=== PATIENT | female | born 1970 | race Caucasian/White ===

== ENCOUNTER 2018-03-07 12:22 | Emergency (ER) | payer OTHER, MEDICAID, SELFPAY ==
[2018-03-07 12:30] VITALS: BP 111/77; PULSE 64; RESP 15; TEMP 36.7; O2SAT 98; BMI 37.6
[2018-03-07 15:49] VITALS: BP 108/67; PULSE 58; RESP 18; O2SAT 99
--- NOTE | 2018-03-07 16:11 | ED_ITS ---
HPI - Dental/Oral General Chief complaint: Dental/Oral Stated complaint: ABSCESS IN MOUTH Time Seen by Provider: 03/07/18 15:53 Source: patient and family Mode of arrival: ambulatory Limitations: no limitations History of Present Illness HPI Narrative: This is a 47-year-old female who comes to the emergency department with complaint of swelling above her right incisor tooth. Patient states that it has been there for almost a week. Patient she states that some she was seen in [place] as they were on a road trip from [place] to [place]. She lives here locally. She states she had swelling at that site as well of her face extending up towards her eye. They put her on clindamycin and gave her prescription for pain medication. They state that they tried to drain the area but there is nothing that came out at that time. She has been taking the antibiotics and has about 4 days worth left. Patient states that the area of swelling has gotten much bigger and more painful. Has not had anything draining. The swelling of her face is improved. She has not had any fevers, she is not having difficulty breathing or other oral airway swelling. No chest pain or shortness of breath no nausea or vomiting no GI or urinary symptoms. She states she also has a rash in her right axillary area that sort of red and itchy. She also clean planes of the some slight swelling in her feet while they were traveling. Location: Tooth # (above tooth #6.) 2 1. swelling consistent with abscess on exam. I&D with drainage Related Data Previous Rx's Medication Instructions Recorded clotrimazole 1 applictn TOP BID 14 Days gram 03/07/18 oxycodone 5 mg PO Q4-6H PRN #7 cap 03/07/18 Allergies Allergy/AdvReac Type Severity Reaction Status Date / Time Penicillins [PENICILLINS] Allergy Unknown Verified 03/07/18 12:30 Sulfa (Sulfonamide Allergy Unknown Verified 03/07/18 12:30 Antibiotics) [SULFA (SULFONAMIDE ANTIBIOTICS)] Review of Systems Review of Systems All systems reviewed & are unremarkable except as noted in HPI and below Constitutional Denies fever(s) ENT Ears, Nose, Mouth, and Throat: Reports facial pain, Reports lip swelling and Reports other (abscess above tooth) Cardiovascular Denies chest pain, Denies irregular heart rhythm, Denies lightheadedness, Denies palpitations, Denies dyspnea, Denies dyspnea on exertion and Denies orthopnea Respiratory Denies cough, Denies dyspnea, Denies dyspnea on exertion and Denies wheezing Gastrointestinal Gastrointestinal: Denies abdominal pain, Denies change in bowel habits, Denies diarrhea, Denies nausea and Denies vomiting Musculoskeletal Reports other (swelling in feet.) Endocrine Denies palpitations Allergic/Immunologic Reports lip swelling and Denies wheezing [facility] Medical History COPD (chronic obstructive pulmonary disease) (Acute) Cirrhosis (Acute) Esophageal varices (Acute) Social History alcohol intake: former substance use type: does not use Exam Narrative Exam Narrative: GEN: well nourished, well appearing female, alert and oriented x 3, patient appears to be in mild distress. HEENT: Atraumatic, pupils are equal round reactive to light, extraocular movements are intact, nares are clear, TMs are clear with no fluid. Throat is clear without any exudates, erythema, tonsillar enlargement or uvular deviation , patient has significant swelling with a fluctuant area above the right incisor. It is quite tender and erythematous. Patient has very slight swelling above the lip but no other facial swelling is appreciated fevers or any erythema or other palpable areas of fluid collection. HEART: Regular rate and rhythm without murmur, clicks, rubs. Trace edema bilateral ankles. LUNGS:Lungs clear to auscultation, no wheezes, rales, crackles, chest moves symmetrically ABD:bowel sounds normal, soft, non-tender, no guarding, rebound, rigidity, no masses noted, no hepatosplenomegaly MSCL: Non-tender,full range of motion NEURO:CN 2-12 intact, sensation normal SKIN: Patient has some erythematous changes in her right axilla with some scalloping that looks consistent with a fungal infection. Initial Vital Signs Initial Vital Signs: Vital Signs Temperature 98.1 F 03/07/18 12:30 Pulse Rate 64 03/07/18 12:30 Respiratory Rate 15 03/07/18 12:30 Blood Pressure 111/77 03/07/18 12:30 Pulse Oximetry 98 03/07/18 12:30 Procedures Abscess I/D Site: oral (Dental) Local Anesthetic: lidocaine 1% Amount of anesthesia used (mL): 0.5 Technique: needle aspiration and incised with #11 blade Amount of fluid expressed (mL): 1.5 Irrigation: No Packing used?: none Complications: bleeding (mild) Course Orders Ordered: ED Orders 03/07/18 16:20 Abscess Culture Stat Vital Signs - 8 hr 03/07/18 12:30 03/07/18 15:49 03/07/18 17:23 Temperature 98.1 F Pulse Rate 64 58 L 63 Respiratory Rate 15 18 15 Blood Pressure 111/77 Blood Pressure [Left Arm] 108/67 129/79 Pulse Oximetry 98 99 97 MDM - Dental/Oral MDM Narrative Medical decision making narrative: I was able to aspirate about 1 cc of purulent fluid directly from the area. Patient tolerated procedure well. Um 11 blade was used to make an incision that was about a 0.5 cm in size and the areas massaged with some additional purulent fluid. Patient has clindamycin with she has about 4 more days worth of antibiotics and was encouraged to finish this. She states she is out of the oxycodone she was given by the last hospital and was given a short-term script for pain. She was also complaining of a rash under her axilla on the left which appears to be fungal in nature was given clotrimazole script. We did use a small amount of benzocaine topical on the area before incision and drainage and she was given a small to move this to use locally. She was instructed only a small tab 3-4 times daily. Any large amount of benzocaine use regularly can result in toxicity and she and her are both aware this. Discussed that she is having any worsening symptoms or signs of worsening infection to return to the ED. Discharge Plan Departure Patient Disposition: Home Clinical Impression: Abscess, dental Discharge Date/Time: 03/07/18 17:27 Interventions: ED Discharge Assessment Last Done: 03/07/18 17:27 Instructions: Tooth Abscess Activity Restrictions/Additional Instructions: Continue prescribed antibiotics until they are completely gone. Take pain medications as prescribed, this medication can make you sleepy do not drive, perform hazards activities or make any major decisions while taking them. Return to the emergency department for any fevers, increasing swelling, increasing redness or other signs of swelling of the airway, signs of spreading infection or other concerning symptoms. Use topical ointment to the affected area in your axilla twice daily. Follow-up with your primary care physician in the next 2-3 days for recheck. Prescriptions: New oxycodone 5 mg capsule 5 mg PO Q4-6H PRN (Reason: pain) Qty: 7 RF: 0 clotrimazole 1 % cream 1 applictn TOP BID 14 Days RF: 0
[2018-03-07 17:23] VITALS: BP 129/79; PULSE 63; RESP 15; O2SAT 97
== END 2018-03-07 17:27 | disposition home or self-care (01) ==
PROVIDERS: Emergency Provider Emergency Medicine; PCP Family Medicine
DX: K04.7 Periapical abscess without sinus (principal)
CPT/HCPCS: 10060; 87070; 87075; 87077; 87205; 99282; 99283

== ENCOUNTER 2018-04-13 11:11 | Emergency (ER) | payer OTHER, MEDICAID, SELFPAY ==
[2018-04-13 11:16] VITALS: BP 147/79; PULSE 66; RESP 18; O2SAT 98
--- NOTE | 2018-04-13 12:11 | ED.ALCOHOL ---
HPI - Alcohol <Stiven PalaciosDAISY armando - Last Filed: 04/13/18 22:18> General Chief Complaint: Toxicology Problem Stated Complaint: ALCOHOL DETOX Time Seen by Provider: 04/13/18 12:11 Source: patient Mode of arrival: ambulatory Limitations: no limitations History of Present Illness HPI narrative: 47-year-old female with history of alcohol abuse, esophageal varices and seizures related to alcohol detox here for request of alcohol detox. She reports that she normally drinks roughly about a 5th of alcohol a day. She reports that her last alcohol intake was approximately 2 hr ago. She states she does not know the amount of alcohol that she drink. She is trying to get to detox and they tried to get her into the [facility] respite center and states due to her medical problems that they would not be able to take her. They recommended that the patient go to [facility]. She denies any seizure activity. She also has a history of hypothyroidism secondary to thyroidectomy she states she has not been taking her meds for approximately 1 week. She denies any suicidal or homicidal ideation. She also reports that she has a mild headache as she had a ground level fall yesterday hitting the front of her head. No loss of consciousness. No nausea or vomiting. MD complaint: desires rehab Chronic alcohol use: Yes Previous visits for alcohol intoxication: Yes Related Data Home Medications Medication Instructions Recorded Confirmed asenapine [Saphris] 10 mg SUBLINGUAL BEDTIME 04/13/18 04/13/18 clotrimazole 1 applic TOPICAL DIRECTED 04/13/18 04/13/18 furosemide 40 mg PO DAILY 04/13/18 04/13/18 hydroxyzine pamoate 50 mg PO TID PRN 04/13/18 04/13/18 levothyroxine 150 mcg PO DAILY 04/13/18 04/13/18 multivitamin,[id number] 1 tab PO DAILY 04/13/18 04/13/18 [Complete Multivitamin] nadolol 40 mg PO DAILY 04/13/18 04/13/18 omeprazole 20 mg PO BID 04/13/18 04/13/18 sertraline 50 mg PO DAILY 04/13/18 04/13/18 spironolactone 50 mg PO DAILY 04/13/18 04/13/18 Previous Rx's Medication Instructions Recorded oxycodone 5 mg PO Q4-6H PRN #7 cap 03/07/18 asenapine [Saphris] 5 mg SL .hs #28 tab 04/13/18 furosemide 40 mg PO DAILY #14 tab 04/13/18 levothyroxine 150 mcg PO DAILY #14 tab 04/13/18 nadolol 40 mg PO DAILY #14 tab 04/13/18 omeprazole 20 mg PO BID #28 cap 04/13/18 sertraline 50 mg PO DAILY #14 tab 04/13/18 spironolactone 50 mg PO DAILY #14 tab 04/13/18 Allergies Allergy/AdvReac Type Severity Reaction Status Date / Time Penicillins [PENICILLINS] Allergy Unknown Verified 03/07/18 12:30 Sulfa (Sulfonamide Allergy Unknown Verified 03/07/18 12:30 Antibiotics) [SULFA (SULFONAMIDE ANTIBIOTICS)] sulfamethoxazole Allergy Verified 04/13/18 11:21 [From Bactrim] trimethoprim [From Bactrim] Allergy Verified 04/13/18 11:21 Review of Systems <DAISY Hansen - Last Filed: 04/13/18 22:18> Constitutional Denies chills, Denies fever(s), Denies lethargy and Denies weakness Comments: Desires alcohol detox Eyes Denies change in vision, Denies eye discharge, Denies irritation and Denies loss of vision ENT Ears, Nose, Mouth, and Throat: Denies change in voice, Denies neck pain and Denies sore throat Cardiovascular Denies chest pain, Denies irregular heart rhythm, Denies lightheadedness, Denies palpitations, Denies dyspnea, Denies dyspnea on exertion and Denies orthopnea Respiratory Denies cough, Denies dyspnea, Denies dyspnea on exertion and Denies wheezing Gastrointestinal Gastrointestinal: Denies abdominal pain, Denies change in bowel habits, Denies diarrhea, Denies nausea and Denies vomiting Musculoskeletal Denies neck pain Integumentary/Breasts Denies pruritus, Denies erythema, Denies rash and Denies wounds Neurologic Denies confusion, Denies loss of vision and Denies weakness Comments: Headache after ground level fall Psychiatric Denies anxiety, Denies confusion, Denies depression, Denies homicidal ideation and Denies suicidal ideation Endocrine Denies palpitations Hematologic/Lymphatic Denies easy bruising Allergic/Immunologic Denies wheezing Exam <DAISY Hansen - Last Filed: 04/13/18 22:18> Initial Vital Signs Initial Vital Signs: Vital Signs Pulse Rate 66 04/13/18 11:16 Respiratory Rate 18 04/13/18 11:16 Blood Pressure 147/79 H 04/13/18 11:16 Pulse Oximetry 98 04/13/18 11:16 Const General: cooperative and well developed Nutritional Appearance: well nourished Orientation: alert, awake, oriented x3 and not confused HENMT Head: normal to inspection, normocephalic, No Thompson's sign, No hematoma, No laceration, No raccoon eyes and No scalp lesion Mouth: oral mucosae normal and moist mucous membranes Eyes Conjunctivae: conjunctivae normal Sclera: sclerae normal Pupils: PERRL EOM: EOM intact bilaterally Resp Effort & Inspection: normal respiratory effort, able to speak in complete sentences, no respiratory distress and no use of accessory muscles Auscultation: clear to auscultation bilaterally, no rales, no rhonchi and no wheezes Cardio Rate: regular rate Rhythm: regular rhythm Heart Sounds: no click, no gallops, no murmurs and no rubs Pulses: normal peripheral pulses Skin General: no rashes or lesions noted, No jaundice and No petechiae Neuro General: alert, oriented x3, gait normal and no focal motor deficits Speech: speech normal Psych Appearance: grossly normal and well kempt Thought Content: normal, no homicidality and suicidality <Nellie Vazquez DO - Last Filed: 04/19/18 21:04> Initial Vital Signs Initial Vital Signs: Vital Signs Pulse Rate 66 04/13/18 11:16 Respiratory Rate 18 04/13/18 11:16 Blood Pressure 147/79 H 04/13/18 11:16 Pulse Oximetry 98 04/13/18 11:16 Course <DAISY Hansen - Last Filed: 04/13/18 22:18> Orders Ordered: Discontinued Medications Sodium Chloride (Normal Saline 0.9%) 1,000 mls @ 150 mls/hr IV CONT CORDELIA Last Infusion: 04/13/18 18:44 Dose: 0 mls/hr Admin: 04/13/18 13:35 Dose: 150 mls/hr Lorazepam (Ativan) 1 mg IV NOW ONE Stop: 04/13/18 12:40 Last Admin: 04/13/18 13:34 Dose: 1 mg Lorazepam (Ativan) 1 mg IV NOW ONE Stop: 04/13/18 16:11 Last Admin: 04/13/18 16:15 Dose: 1 mg Lorazepam (Ativan) 1 mg IV NOW ONE Stop: 04/13/18 18:25 Last Admin: 04/13/18 18:29 Dose: 1 mg Vital Signs - 8 hr 04/13/18 16:38 04/13/18 18:44 Temperature 98.0 F Pulse Rate 66 76 Respiratory Rate 18 15 Blood Pressure 111/66 Blood Pressure [Right Arm] 130/77 Pulse Oximetry 93 96 <Nellie Vazquez DO - Last Filed: 04/19/18 21:04> Orders Ordered: Discontinued Medications Sodium Chloride (Normal Saline 0.9%) 1,000 mls @ 150 mls/hr IV CONT CORDELIA Last Infusion: 04/13/18 18:44 Dose: 0 mls/hr Admin: 04/13/18 13:35 Dose: 150 mls/hr Lorazepam (Ativan) 1 mg IV NOW ONE Stop: 04/13/18 12:40 Last Admin: 04/13/18 13:34 Dose: 1 mg Lorazepam (Ativan) 1 mg IV NOW ONE Stop: 04/13/18 16:11 Last Admin: 04/13/18 16:15 Dose: 1 mg Lorazepam (Ativan) 1 mg IV NOW ONE Stop: 04/13/18 18:25 Last Admin: 04/13/18 18:29 Dose: 1 mg Vital Signs - 8 hr 04/13/18 16:38 04/13/18 18:44 Temperature 98.0 F Pulse Rate 66 76 Respiratory Rate 18 15 Blood Pressure 111/66 Blood Pressure [Right Arm] 130/77 Pulse Oximetry 93 96 MDM - Alcohol <DAISY Hansen - Last Filed: 04/13/18 22:18> Lab Data Result diagrams: 04/13/18 13:26 04/13/18 13:26 Labs: Lab Results 04/13/18 04/13/18 04/13/18 Range/Units 11:55 11:55 13:26 WBC 4.8 (4.5-11.0) X10^3/uL RBC 4.53 (4.0-5.2) X10^6/uL Hgb 11.8 L (12.0-16.0) g/dL Hct 36.1 (36-46) % MCV 79.7 L (80-100) fL MCH 26.1 (26-34) PG MCHC 32.8 (30-36) % RDW 16.9 H (11.6-14.8) % Plt Count 167 (150-400) X10^3/uL Neut % (Auto) 44.8 L (50-75) % Lymph % (Auto) 46.7 H (25-40) % Morris % (Auto) 5.5 (3-14) % Eos % (Auto) 2.1 (2-4) % Baso % (Auto) 0.9 (0-2) % Neut # (Auto) 2100 L (6790-4015) /uL Sodium (137-145) mmol/L Potassium (3.4-5.1) mmol/L Chloride (98-107) mmol/L Carbon Dioxide (22-32) mmol/L BUN (7-17) mg/dL Creatinine (0.52-1.04) mg/dL Estimated GFR (>60) mL/min BUN/Creatinine Ratio (6-22) Glucose (70-100) mg/dL Calcium (8.4-10.2) mg/dL Total Bilirubin (0.2-1.3) mg/dL AST (14-36) IU/L ALT (9-52) IU/L Alkaline Phosphatase (38-126) U/L Total Protein (6.3-8.2) g/dL Albumin (3.5-5.0) g/dL Globulin (1.7-4.1) g/dL Albumin/Globulin Ratio (1.0-2.8) TSH (0.47-4.68) uIU/mL Urine RBC 0-1/hpf (0-5/HPF) Urine WBC None seen (0-5/HPF) Ur Squamous Epith Cells 1-5 /hpf Urine Bacteria Moderate (10-30) H (None) Ur Culture Indicated? Cult not indicated Micro UA Comment Not Reportable Urine Opiates Screen Negative (Negative) Ur Oxycodone Screen Positive H (Negative) Urine Methadone Screen Negative (Negative) Ur Barbiturates Screen Negative (Negative) U Tricyclic Antidepress Negative (Negative) Ur Phencyclidine Scrn Negative (Negative) Ur Amphetamines Screen Negative (Negative) U Methamphetamines Scrn Negative (Negative) Ur MDMA Scrn (Ecstasy) Negative (Negative) U Benzodiazepines Scrn Positive H (Negative) Urine Cocaine Screen Negative (Negative) U Marijuana (THC) Screen Negative (Negative) Ethyl Alcohol mg/dL 04/13/18 04/13/18 Range/Units 13:26 13:26 WBC (4.5-11.0) X10^3/uL RBC (4.0-5.2) X10^6/uL Hgb (12.0-16.0) g/dL Hct (36-46) % MCV (80-100) fL MCH (26-34) PG MCHC (30-36) % RDW (11.6-14.8) % Plt Count (150-400) X10^3/uL Neut % (Auto) (50-75) % Lymph % (Auto) (25-40) % Morris % (Auto) (3-14) % Eos % (Auto) (2-4) % Baso % (Auto) (0-2) % Neut # (Auto) (4109-3705) /uL Sodium 142 (137-145) mmol/L Potassium 3.5 (3.4-5.1) mmol/L Chloride 102 (98-107) mmol/L Carbon Dioxide 24 (22-32) mmol/L BUN 7 (7-17) mg/dL Creatinine 0.50 L (0.52-1.04) mg/dL Estimated GFR > 60.0 (>60) mL/min BUN/Creatinine Ratio 14.0 (6-22) Glucose 123 H (70-100) mg/dL Calcium 8.4 (8.4-10.2) mg/dL Total Bilirubin 0.4 (0.2-1.3) mg/dL AST 49 H (14-36) IU/L ALT 46 (9-52) IU/L Alkaline Phosphatase 108 (38-126) U/L Total Protein 7.9 (6.3-8.2) g/dL Albumin 4.3 (3.5-5.0) g/dL Globulin 3.6 (1.7-4.1) g/dL Albumin/Globulin Ratio 1.2 (1.0-2.8) TSH 16.00 H (0.47-4.68) uIU/mL Urine RBC (0-5/HPF) Urine WBC (0-5/HPF) Ur Squamous Epith Cells Urine Bacteria (None) Ur Culture Indicated? Micro UA Comment Urine Opiates Screen (Negative) Ur Oxycodone Screen (Negative) Urine Methadone Screen (Negative) Ur Barbiturates Screen (Negative) U Tricyclic Antidepress (Negative) Ur Phencyclidine Scrn (Negative) Ur Amphetamines Screen (Negative) U Methamphetamines Scrn (Negative) Ur MDMA Scrn (Ecstasy) (Negative) U Benzodiazepines Scrn (Negative) Urine Cocaine Screen (Negative) U Marijuana (THC) Screen (Negative) Ethyl Alcohol 222 mg/dL Point of Care Testing Test Results Negative Urine Dip Bedside Urine Glucose Negative Bedside Urine Bilirubin - Negative Bedside Urine Ketone - Negative Urine Specific Collins 1.015 Bedside Urine Occult Blood + Bedside Urine pH 6.0 Bedside Urine Protein +/- 15 Bedside Urine Urobilinogen - Negative Bedside Urine Nitrite - Negative Bedside Urine Leukocytes - Negative Esterase Imaging Data CT scan - head: Radiologist's impression: [address] [address] [address] Scan Report Signed Patient: Yin Burch LMR#: [id number] : 1970Acct:[id number] Age/Sex: 47 / FDate of Service: 04/13/18 Loc: ED Accession Number: [id number] Procedure: CT head/brain wo con Ordering Provider: Stiven Flores PROCEDURE: CT HEAD/BRAIN WO CON INDICATIONS: glf yesterday hitting head TECHNIQUE: Noncontrast 4.5 mm thick angled axial sections acquired from the foramen magnum to the vertex, with coronal and sagittal reformats. For radiation dose reduction, the following was used: automated exposure control, adjustment of mA and/or kV according to patient size. COMPARISON: None. FINDINGS: Image quality: Excellent. CSF spaces: Basal cisterns are patent. No extra-axial fluid collections. Ventricles are normal in size and shape. Brain: No intracranial hemorrhage, mass, or mass effect. Burt-white matter interface is preserved. Skull and face: There is a small left parietal scalp hematoma. Calvarium and visualized facial bones are intact, without suspicious lesions. Sinuses: Visualized sinuses and mastoids are clear. IMPRESSION: 1. No acute intracranial abnormality. Dictated by: Aamir Ballard M.D. on 04/13/2018 at 13:45 Approved by: Aamir Ballard M.D. on 04/13/2018 at 13:[address] [facility] Narrative Medical decision making narrative: Due to report of a ground level fall last night while intoxicated and also with headache and CT of the head was obtained was negative. CBC was obtained was unremarkable. Chem panel was obtained and was also unremarkable. TSH was elevated at 16, patient is encouraged to start taking her thyroid medication again. She was given a few doses of Ativan in the emergency room. She had no seizure activity. She is alert and awake. No acute distress. After talking to multiple medical alcohol detox facilities either due to insurance issues or to being full found a inpatient detox with medical that can handle her comorbidities at [facility]. They accepted patient. Patient is transferred to detox via ambulance. Accepting provider is [facility]. <Nellie Arjun Vazquez, DO - Last Filed: 04/19/18 21:04> Lab Data Labs: Lab Results 04/13/18 04/13/18 04/13/18 Range/Units 11:55 11:55 13:26 WBC 4.8 (4.5-11.0) X10^3/uL RBC 4.53 (4.0-5.2) X10^6/uL Hgb 11.8 L (12.0-16.0) g/dL Hct 36.1 (36-46) % MCV 79.7 L (80-100) fL MCH 26.1 (26-34) PG MCHC 32.8 (30-36) % RDW 16.9 H (11.6-14.8) % Plt Count 167 (150-400) X10^3/uL Neut % (Auto) 44.8 L (50-75) % Lymph % (Auto) 46.7 H (25-40) % Morris % (Auto) 5.5 (3-14) % Eos % (Auto) 2.1 (2-4) % Baso % (Auto) 0.9 (0-2) % Neut # (Auto) 2100 L (2726-8140) /uL Sodium (137-145) mmol/L Potassium (3.4-5.1) mmol/L Chloride (98-107) mmol/L Carbon Dioxide (22-32) mmol/L BUN (7-17) mg/dL Creatinine (0.52-1.04) mg/dL Estimated GFR (>60) mL/min BUN/Creatinine Ratio (6-22) Glucose (70-100) mg/dL Calcium (8.4-10.2) mg/dL Total Bilirubin (0.2-1.3) mg/dL AST (14-36) IU/L ALT (9-52) IU/L Alkaline Phosphatase (38-126) U/L Total Protein (6.3-8.2) g/dL Albumin (3.5-5.0) g/dL Globulin (1.7-4.1) g/dL Albumin/Globulin Ratio (1.0-2.8) TSH (0.47-4.68) uIU/mL Urine RBC 0-1/hpf (0-5/HPF) Urine WBC None seen (0-5/HPF) Ur Squamous Epith Cells 1-5 /hpf Urine Bacteria Moderate (10-30) H (None) Ur Culture Indicated? Cult not indicated Micro UA Comment Not Reportable Urine Opiates Screen Negative (Negative) Ur Oxycodone Screen Positive H (Negative) Urine Methadone Screen Negative (Negative) Ur Barbiturates Screen Negative (Negative) U Tricyclic Antidepress Negative (Negative) Ur Phencyclidine Scrn Negative (Negative) Ur Amphetamines Screen Negative (Negative) U Methamphetamines Scrn Negative (Negative) Ur MDMA Scrn (Ecstasy) Negative (Negative) U Benzodiazepines Scrn Positive H (Negative) Urine Cocaine Screen Negative (Negative) U Marijuana (THC) Screen Negative (Negative) Ethyl Alcohol mg/dL 04/13/18 04/13/18 Range/Units 13:26 13:26 WBC (4.5-11.0) X10^3/uL RBC (4.0-5.2) X10^6/uL Hgb (12.0-16.0) g/dL Hct (36-46) % MCV (80-100) fL MCH (26-34) PG MCHC (30-36) % RDW (11.6-14.8) % Plt Count (150-400) X10^3/uL Neut % (Auto) (50-75) % Lymph % (Auto) (25-40) % Morris % (Auto) (3-14) % Eos % (Auto) (2-4) % Baso % (Auto) (0-2) % Neut # (Auto) (1414-8764) /uL Sodium 142 (137-145) mmol/L Potassium 3.5 (3.4-5.1) mmol/L Chloride 102 (98-107) mmol/L Carbon Dioxide 24 (22-32) mmol/L BUN 7 (7-17) mg/dL Creatinine 0.50 L (0.52-1.04) mg/dL Estimated GFR > 60.0 (>60) mL/min BUN/Creatinine Ratio 14.0 (6-22) Glucose 123 H (70-100) mg/dL Calcium 8.4 (8.4-10.2) mg/dL Total Bilirubin 0.4 (0.2-1.3) mg/dL AST 49 H (14-36) IU/L ALT 46 (9-52) IU/L Alkaline Phosphatase 108 (38-126) U/L Total Protein 7.9 (6.3-8.2) g/dL Albumin 4.3 (3.5-5.0) g/dL Globulin 3.6 (1.7-4.1) g/dL Albumin/Globulin Ratio 1.2 (1.0-2.8) TSH 16.00 H (0.47-4.68) uIU/mL Urine RBC (0-5/HPF) Urine WBC (0-5/HPF) Ur Squamous Epith Cells Urine Bacteria (None) Ur Culture Indicated? Micro UA Comment Urine Opiates Screen (Negative) Ur Oxycodone Screen (Negative) Urine Methadone Screen (Negative) Ur Barbiturates Screen (Negative) U Tricyclic Antidepress (Negative) Ur Phencyclidine Scrn (Negative) Ur Amphetamines Screen (Negative) U Methamphetamines Scrn (Negative) Ur MDMA Scrn (Ecstasy) (Negative) U Benzodiazepines Scrn (Negative) Urine Cocaine Screen (Negative) U Marijuana (THC) Screen (Negative) Ethyl Alcohol 222 mg/dL Point of Care Testing Test Results Negative Urine Dip Bedside Urine Glucose Negative Bedside Urine Bilirubin - Negative Bedside Urine Ketone - Negative Urine Specific Collins 1.015 Bedside Urine Occult Blood + Bedside Urine pH 6.0 Bedside Urine Protein +/- 15 Bedside Urine Urobilinogen - Negative Bedside Urine Nitrite - Negative Bedside Urine Leukocytes - Negative Esterase Discharge Plan Departure Patient Disposition: Xfer Acute Care Hospital Clinical Impression: Alcohol withdrawal Discharge Date/Time: 04/13/18 18:46 Interventions: ED Discharge Assessment Last Done: 04/13/18 18:44 Prescriptions: New furosemide 40 mg tablet 40 mg PO DAILY Qty: 14 RF: 0 levothyroxine 150 mcg tablet 150 mcg PO DAILY Qty: 14 RF: 0 omeprazole 20 mg capsule,delayed release(DR/EC) 20 mg PO BID Qty: 28 RF: 0 nadolol 40 mg tablet 40 mg PO DAILY Qty: 14 RF: 0 sertraline 50 mg tablet 50 mg PO DAILY Qty: 14 RF: 0 spironolactone 50 mg tablet 50 mg PO DAILY Qty: 14 RF: 0 asenapine [Saphris (black orourke)] 2.5 mg tablet, sublingual 5 mg SL .hs Qty: 28 RF: 0 No Action clotrimazole 1 % cream 1 applic Topical DIRECTED RF: 0 furosemide 40 mg Tablet 40 mg PO DAILY RF: 0 hydroxyzine pamoate 50 mg Capsule 50 mg PO TID PRN (Reason: Anxiety) RF: 0 levothyroxine 150 mcg Tablet 150 mcg PO DAILY RF: 0 omeprazole 20 mg Capsule,Delayed Release(Dr/Ec) 20 mg PO BID RF: 0 nadolol 40 mg Tablet 40 mg PO DAILY RF: 0 sertraline 50 mg Tablet 50 mg PO DAILY RF: 0 spironolactone 50 mg Tablet 50 mg PO DAILY RF: 0 multivitamin,[id number] [Complete Multivitamin] Tablet 1 tab PO DAILY RF: 0 asenapine [Saphris] 5 mg Tablet, Sublingual 10 mg SUBLINGUAL BEDTIME RF: 0 oxycodone 5 mg capsule 5 mg PO Q4-6H PRN (Reason: pain) Qty: 7 RF: 0 <Nellie Vazquez DO - Last Filed: 04/19/18 21:04> Cosign ED Attending Cosignature Attestation: I was immediately available in the department for consultation. This documentation has been reviewed and I agree with assessment and plan. Supervised by Nellie Vazquez DO
[2018-04-13 13:24] LABS: WBC Urine None Seen (0-5/HPF)
[2018-04-13 13:32] LABS: Urine Amphetamines Negative (Negative); Urine Barbiturates Negative (Negative); Urine Benzodiazepines Positive (Negative); Urine Cocaine Negative (Negative); Urine MDMA Negative (Negative); Urine Methadone Negative (Negative); Urine Methamphetamines Negative (Negative); Urine Morphine/Opi cutoff 2000 Negative (Negative); Urine Oxycodone Positive (Negative); Urine Phencyclidine Negative (Negative); Urine Tetrahydrocannabinol Negative (Negative); Urine Tricyclic Antidepressant Negative (Negative)
[2018-04-13] MEDS: LORazepam 2 MG/ML SYRINGE 1 MG IV ×3 (13:34→18:29)
--- NOTE | 2018-04-13 13:34 | DI.CT.S_ITS ---
PROCEDURE: CT HEAD/BRAIN WO CON INDICATIONS: glf yesterday hitting head TECHNIQUE: Noncontrast 4.5 mm thick angled axial sections acquired from the foramen magnum to the vertex, with coronal and sagittal reformats. For radiation dose reduction, the following was used: automated exposure control, adjustment of mA and/or kV according to patient size. COMPARISON: None. FINDINGS: Image quality: Excellent. CSF spaces: Basal cisterns are patent. No extra-axial fluid collections. Ventricles are normal in size and shape. Brain: No intracranial hemorrhage, mass, or mass effect. Burt-white matter interface is preserved. Skull and face: There is a small left parietal scalp hematoma. Calvarium and visualized facial bones are intact, without suspicious lesions. Sinuses: Visualized sinuses and mastoids are clear. IMPRESSION: 1. No acute intracranial abnormality. Dictated by: Aamir Ballard M.D. on 04/13/2018 at 13:45 Approved by: Aamir Ballard M.D. on 04/13/2018 at 13:47
[2018-04-13] MEDS: SODIUM CHLORIDE 0.9% 1,000 ML 150 ML IV (13:35)
[2018-04-13 13:36] LABS: Add Manual Diff / Slide Review NO; Basophils Percent Auto 0.9 % (0-2); Eosinophils Percent Auto 2.1 % (2-4); Hematocrit 36.1 % (36-46); Hemoglobin 11.8 g/dL (12.0-16.0); Lymphocytes Percent Auto 46.7 % (25-40); Mean Corpuscular HGB Conc 32.8 % (30-36); Mean Corpuscular Hemoglobin 26.1 PG (26-34); Mean Corpuscular Volume 79.7 fL (80-100); Monocytes Percent Auto 5.5 % (3-14); Neutrophils Absolute Auto 2100 /uL (3000-5900); Neutrophils Percent Auto 44.8 % (50-75); Platelet Count 167 X10^3/uL (150-400); Red Blood Cell Count 4.53 X10^6/uL (4.0-5.2); Red Cell Distribution Width 16.9 % (11.6-14.8); White Blood Cell Count 4.8 X10^3/uL (4.5-11.0)
[2018-04-13 13:39] LABS: RBC Urine 0-1/HPF (0-5/HPF); Squamous Epithelial Cell Urine 1-5 /HPF
[2018-04-13 13:40] LABS: Bacteria Urine Moderate (10-30); Culture Indicated Urine Cult Not Indicated
[2018-04-13 13:59] VITALS: BP 122/71; PULSE 62; RESP 18; O2SAT 92
[2018-04-13 14:01] LABS: Alanine Aminotransferase 46 IU/L (9-52); Albumin 4.3 g/dL (3.5-5.0); Albumin Globulin Ratio 1.2 (1.0-2.8); Alkaline Phosphatase 108 U/L (38-126); Aspartate Aminotransferase 49 IU/L (14-36); Bilirubin Total 0.4 mg/dL (0.2-1.3); Blood Urea Nitrogen 7 mg/dL (7-17); Calcium 8.4 mg/dL (8.4-10.2); Carbon Dioxide 24 mmol/L (22-32); Chloride 102 mmol/L (98-107); Estimated Glomerular Filt Rate > 60.0 mL/min (>60); Ethanol (ETOH) 222 mg/dL; Globulin 3.6 g/dL (1.7-4.1); Glucose 123 mg/dL (70-100); HEMOLYSIS < 15 (0-50); Potassium 3.5 mmol/L (3.4-5.1); Sodium 142 mmol/L (137-145); Total Protein 7.9 g/dL (6.3-8.2)
[2018-04-13 16:38] VITALS: BP 130/77; PULSE 66; RESP 18; TEMP 36.7; O2SAT 93
--- NOTE | 2018-04-13 17:25 | PC.NURSE ---
Per patient, she does not need to take any of her regular home medications tonight. Facility requires written prescriptions from us to fill her medications by tomorrow morning. Provider notified and scripts were printed. Gave report to Grabiel at [facility].
[2018-04-13 18:44] VITALS: BP 111/66; PULSE 76; RESP 15; O2SAT 96
== END 2018-04-13 18:46 | disposition short-term general hospital (02) ==
PROVIDERS: Emergency Provider Nurse Practitioner Family
DX: F10.239 Alcohol dependence with withdrawal, unspecified (principal); S09.90XA Unspecified injury of head, initial encounter; W18.30XA Fall on same level, unspecified, initial encounter
CPT/HCPCS: 36591; 70450; 80053; 80305; 80320; 81003; 81015; 81025; 84443; 85025; 96361; 96374; 96376; 99283; 99284; J2060

== ENCOUNTER 2018-04-27 11:53 | Emergency (ER) | payer OTHER, MEDICAID, SELFPAY ==
[2018-04-27 11:59] VITALS: BP 98/66; PULSE 67; RESP 16; TEMP 36.3; O2SAT 96
--- NOTE | 2018-04-27 13:05 | ED.RECABL ---
HPI - Recheck/Abnormal Lab/Rx <Sindi Armendariz PA-C - Last Filed: 04/27/18 18:34> General Chief Complaint: Recheck/Abnormal Lab/Rx Stated Complaint: NEED MEDICATION REFILLED Time Seen by Provider: 04/27/18 12:32 Source: patient Mode of arrival: ambulatory Limitations: no limitations History of Present Illness HPI narrative: Patient states that she comes to the ED today due to not being able to get her medications refilled at the walk-in clinic. She has been on all of these for a long time and doing well. She finished outpatient rehab for alcohol about 2 weeks ago and states occasionally she will want to drink but has not, and generally doing very well. She has a number of chronic issues for which she is establishing care with a local PCP in June, was unable to get an appointment earlier. She does not have any acute problems today. States that she has had labs monitor on her current medications and have been stable, but she is wondering whether her levothyroxine needs to be adjusted as she has had some weight gain Related Data Home Medications Medication Instructions Recorded Confirmed clotrimazole 1 applic TOPICAL DIRECTED 04/13/18 04/13/18 hydroxyzine pamoate 50 mg PO TID PRN 04/13/18 04/13/18 multivitamin,[id number] 1 tab PO DAILY 04/13/18 04/13/18 [Complete Multivitamin] Previous Rx's Medication Instructions Recorded oxycodone 5 mg PO Q4-6H PRN #7 cap 03/07/18 asenapine [Saphris] 5 mg SL BID #60 tab 04/27/18 asenapine [Saphris] 10 mg SUBLINGUAL BID #60 tab 04/27/18 furosemide 40 mg PO DAILY #30 tab 04/27/18 furosemide 40 mg PO DAILY #30 tab 04/27/18 levothyroxine [Levoxyl] 175 mcg PO DAILY #30 tab 04/27/18 levothyroxine [Levoxyl] 175 mcg PO DAILY #30 tab 04/27/18 nadolol 40 mg PO DAILY #30 tab 04/27/18 nadolol 40 mg PO DAILY #30 tab 04/27/18 omeprazole 20 mg PO BID #30 cap 04/27/18 omeprazole 20 mg PO BID #60 cap 04/27/18 sertraline 50 mg PO DAILY #30 tab 04/27/18 sertraline 50 mg PO DAILY #30 tab 04/27/18 spironolactone 50 mg PO DAILY #30 tab 04/27/18 spironolactone 50 mg PO DAILY #30 tab 04/27/18 Allergies Allergy/AdvReac Type Severity Reaction Status Date / Time Penicillins [PENICILLINS] Allergy Unknown Verified 03/07/18 12:30 Sulfa (Sulfonamide Allergy Unknown Verified 03/07/18 12:30 Antibiotics) [SULFA (SULFONAMIDE ANTIBIOTICS)] sulfamethoxazole Allergy Verified 04/13/18 11:21 [From Bactrim] trimethoprim [From Bactrim] Allergy Verified 04/13/18 11:21 Review of Systems <IHSAN Guerra Last Filed: 04/27/18 18:34> Review of Systems All systems reviewed & are unremarkable except as noted in HPI and below Exam <IHSAN Guerra Last Filed: 04/27/18 18:34> Narrative Exam Narrative: GENERAL APPEARANCE: Patient sitting comfortably, in no distress. LUNGS: Clear to auscultation bilaterally. HEART: Rate and rhythm regular without murmur, normal S1 and S2, no S3 or S4. EXTREMITIES: No cyanosis or edema Initial Vital Signs Initial Vital Signs: Vital Signs Temperature 97.4 F L 04/27/18 11:59 Pulse Rate 67 04/27/18 11:59 Respiratory Rate 16 04/27/18 11:59 Blood Pressure 98/66 04/27/18 11:59 Pulse Oximetry 96 04/27/18 11:59 <DO Josey Richardson Last Filed: 04/27/18 19:03> Initial Vital Signs Initial Vital Signs: Vital Signs Temperature 97.4 F L 04/27/18 11:59 Pulse Rate 67 04/27/18 11:59 Respiratory Rate 16 04/27/18 11:59 Blood Pressure 98/66 04/27/18 11:59 Pulse Oximetry 96 04/27/18 11:59 Course <IHSAN Guerra Last Filed: 04/27/18 18:34> Vital Signs - 8 hr 04/27/18 11:59 Temperature 97.4 F L Pulse Rate 67 Respiratory Rate 16 Blood Pressure 98/66 Pulse Oximetry 96 <DO Josey Richardson Last Filed: 04/27/18 19:03> Vital Signs - 8 hr 04/27/18 11:59 Temperature 97.4 F L Pulse Rate 67 Respiratory Rate 16 Blood Pressure 98/66 Pulse Oximetry 96 Discharge Plan Departure Patient Disposition: Home Clinical Impression: Hypothyroidism, Medication refill, Cirrhosis Discharge Date/Time: 04/27/18 13:55 Interventions: ED Discharge Assessment Last Done: 04/27/18 13:54 Instructions: DI for Hypothyroidism Activity Restrictions/Additional Instructions: I have sent in refills for all of your medication to [facility] locally. I reviewed your recent labs, and your thyroid was checked and your dose appeared to be low, so I did adjust this up a bit. When you see Dr. German 06/23, this will be good timing to recheck your thyroid and make sure this new dose is the right 1. Please elevate your legs above your heart whenever possible and try some light compression stockings for your chronic swelling. Since you have some chronic problems including breast lumps that your hoping to be seen for sooner, please call the clinic and make sure that you are on a cancellation list for an earlier appointment. Prescriptions: New levothyroxine [Levoxyl] 175 mcg tablet 175 mcg PO DAILY Qty: 30 RF: 1 furosemide 40 mg tablet 40 mg PO DAILY Qty: 30 RF: 1 omeprazole 20 mg capsule,delayed release(DR/EC) 20 mg PO BID Qty: 60 RF: 1 nadolol 40 mg tablet 40 mg PO DAILY Qty: 30 RF: 1 sertraline 50 mg tablet 50 mg PO DAILY Qty: 30 RF: 1 spironolactone 50 mg tablet 50 mg PO DAILY Qty: 30 RF: 1 asenapine [Saphris] 5 mg tablet, sublingual 5 mg SL BID Qty: 60 RF: 1 levothyroxine [Levoxyl] 175 mcg tablet 175 mcg PO DAILY Qty: 30 RF: 1 Continue furosemide 40 mg Tablet 40 mg PO DAILY Qty: 30 RF: 1 omeprazole 20 mg capsule,delayed release(DR/EC) 20 mg PO BID Qty: 30 RF: 1 nadolol 40 mg tablet 40 mg PO DAILY Qty: 30 RF: 1 sertraline 50 mg tablet 50 mg PO DAILY Qty: 30 RF: 1 spironolactone 50 mg tablet 50 mg PO DAILY Qty: 30 RF: 1 Changed asenapine [Saphris] 5 mg Tablet, Sublingual 10 mg SUBLINGUAL BID Qty: 60 RF: 1 Discontinued levothyroxine 150 mcg Tablet 150 mcg PO DAILY RF: 0 asenapine [Saphris (black orourke)] 2.5 mg tablet, sublingual 5 mg SL .hs Qty: 28 RF: 0 No Action clotrimazole 1 % cream 1 applic Topical DIRECTED RF: 0 hydroxyzine pamoate 50 mg Capsule 50 mg PO TID PRN (Reason: Anxiety) RF: 0 multivitamin,[id number] [Complete Multivitamin] Tablet 1 tab PO DAILY RF: 0 oxycodone 5 mg capsule 5 mg PO Q4-6H PRN (Reason: pain) Qty: 7 RF: 0 Referrals: Miguel Ángel Leary MD [Physician] - <Suzette Lea DO - Last Filed: 04/27/18 19:03> Cosign ED Attending Kennethature Attestation: I was immediately available in the department for consultation. Documentation has been reviewed. I agree with assessment and plan.
== END 2018-04-27 13:55 | disposition home or self-care (01) ==
PROVIDERS: Emergency Provider Internal Medicine
DX: Z76.0 Encounter for issue of repeat prescription (principal)
CPT/HCPCS: 99281; 99282

== ENCOUNTER 2018-07-17 23:06 | Emergency (ER) | payer OTHER, MEDICAID, SELFPAY ==
[2018-07-17 23:15] VITALS: BP 133/82; PULSE 73; RESP 18; TEMP 36.8; O2SAT 93; BMI 40.7
--- NOTE | 2018-07-17 23:23 | DI.RAD.S_ITS ---
PROCEDURE: XR ANKLE RT MIN 3V INDICATIONS: fall with ankle pain TECHNIQUE: 6 views of the ankle and foot were acquired. These are included under the requisition for the ankle. COMPARISON: None. FINDINGS: Bones: There is a probable small avulsion off the distal fibula. There is lateral soft tissue swelling. No dislocations or other fractures. Images of the foot are unremarkable. Soft tissues: No tibiotalar joint effusion. Achilles tendon appears normal. IMPRESSION: Probable small avulsion off the distal fibula with associated lateral soft tissue swelling. Dictated by: Mikey Lowe M.D. on 07/18/2018 at 9:08 Approved by: Mikey Lowe M.D. on 07/18/2018 at 9:12
--- NOTE | 2018-07-17 23:30 | ED.LOWEXIN ---
HPI - Extremity Injury (Lower) General Chief Complaint: Extremity Injury, Lower Stated Complaint: Right ankle pain Time Seen by Provider: 07/17/18 23:08 Source: patient and EMS Mode of arrival: EMS Limitations: no limitations History of Present Illness HPI Narrative: 48F nonsmoker with history of hypothyroid and HTN presents with chief complaint of R ankle pain after fall. She had some alcohol tonight. She tripped over her cat and has full recall of the event. She denies head, neck or back pain. 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 Her pain is sharp and stabbing, worse with motion/ambulation, and improves with rest. MD complaint: ankle injury Onset (ago): minute(s) Type of Injury: inversion Place: home Severity: mild Relieving factors: immobilization and rest Exacerbating factors: weight bearing and movement Context: fall and walking Associated symptoms: able to partially bear weight Other symptoms: none Related Data Home Medications Medication Instructions Recorded Confirmed multivitamin,[id number] 1 tab PO DAILY 04/13/18 06/23/18 [Complete Multivitamin] Previous Rx's Medication Instructions Recorded Disabled Parking Permit #1 ea 06/23/18 asenapine 5 mg sublingual tablet 5 mg SL BID #60 tab 06/23/18 furosemide 40 mg tablet 40 mg PO DAILY #30 tab 06/23/18 hydroxyzine pamoate 50 mg capsule 50 mg PO TID PRN #90 cap 06/23/18 levothyroxine 175 mcg tablet 175 mcg PO DAILY #30 tab 06/23/18 nadolol 40 mg tablet 40 mg PO DAILY #30 tab 06/23/18 omeprazole 20 mg capsule,delayed 20 mg PO BID #60 cap 06/23/18 release sertraline 50 mg tablet 50 mg PO DAILY #30 tab 06/23/18 spironolactone 50 mg tablet 50 mg PO DAILY #30 tab 06/23/18 naltrexone 50 mg tablet 50 mg PO DAILY #30 tab 06/28/18 Allergies Allergy/AdvReac Type Severity Reaction Status Date / Time Penicillins [PENICILLINS] Allergy Unknown Verified 06/23/18 13:35 Sulfa (Sulfonamide Allergy Unknown Verified 06/23/18 13:35 Antibiotics) [SULFA (SULFONAMIDE ANTIBIOTICS)] sulfamethoxazole Allergy Verified 06/23/18 13:35 [From Bactrim] trimethoprim [From Bactrim] Allergy Verified 06/23/18 13:35 Review of Systems Constitutional Denies chills, Denies fever(s), Denies lethargy and Denies weakness Eyes Denies change in vision, Denies eye discharge, Denies irritation and Denies loss of vision ENT Ears, Nose, Mouth, and Throat: Denies change in voice, Denies neck pain and Denies sore throat Cardiovascular Denies chest pain, Denies irregular heart rhythm, Denies lightheadedness, Denies palpitations, Denies dyspnea, Denies dyspnea on exertion and Denies orthopnea Respiratory Denies cough, Denies dyspnea, Denies dyspnea on exertion and Denies wheezing Gastrointestinal Gastrointestinal: Denies abdominal pain, Denies change in bowel habits, Denies diarrhea, Denies nausea and Denies vomiting Genitourinary Denies hematuria, Denies flank pain, Denies urinary incontinence and Denies urinary urgency Musculoskeletal Reports joint swelling, Reports limited range of motion and Denies neck pain Integumentary/Breasts Denies pruritus, Denies erythema, Denies rash and Denies wounds Neurologic Denies confusion, Denies loss of vision and Denies weakness Psychiatric Denies anxiety, Denies confusion, Denies depression, Denies homicidal ideation and Denies suicidal ideation Endocrine Denies palpitations Hematologic/Lymphatic Denies easy bruising Allergic/Immunologic Denies wheezing [facility] Medical History Anxiety (Chronic) Avascular necrosis (Chronic) COPD (chronic obstructive pulmonary disease) (Chronic) Cirrhosis (Chronic) Depression (Chronic) Esophageal varices (Chronic) Esophageal web (Chronic) Hayfever (Chronic) Hemorrhoids (Chronic) Hypothyroidism (Chronic 1997) Irregular periods/menstrual cycles (Chronic) Pancytopenia (Chronic) Seizures (Chronic) Shoulder pain (Chronic) Substance abuse (Chronic) Chicken pox (Resolved) Chlamydia (Resolved ~1988) History of total thyroidectomy (Resolved 1997) MRSA infection (Resolved) Thyroid cancer (Resolved 02/1998) Surgical History Anesthesia complication (Resolved) History of adenoidectomy (Resolved) History of bunionectomy (Resolved) History of bunionectomy (Resolved) History of dilation and curettage (Resolved) History of esophageal surgery (Resolved 2016) History of left hip replacement (Resolved 08/2017) History of placement of ear tubes (Resolved) History of right hip replacement (Resolved 11/2017) History of tonsillectomy (Resolved) Family History Father No problems noted. Mother Depression Hyperlipidemia Thyroid disorder Mental health problem Brother No problems noted. Grandfather Lung cancer Cancer Grandmother Thyroid disorder Potassium disorder Hyperlipidemia Hypertension Grandfather No problems noted. Grandmother No problems noted. Family/Other No problems noted. Social History Smoking Status: Never smoker alcohol intake: former substance use type: does not use Family History Father No problems noted. Mother Depression Hyperlipidemia Thyroid disorder Mental health problem Brother No problems noted. Grandfather Lung cancer Cancer Grandmother Thyroid disorder Potassium disorder Hyperlipidemia Hypertension Grandfather No problems noted. Grandmother No problems noted. Family/Other No problems noted. Social History Smoking Status: Never smoker alcohol intake: former substance use type: does not use Exam Narrative Exam Narrative: GEN: 48-year-old female appears stated age, rise by EMS and is obviously in pain with her right ankle splinted, GCS 15 EYES: Pupils are equal, round, and reactive to light and accommodation. Extraoccular muscles are intact bilaterally. There is no subconjunctival hemorrhage or exudate. HEAD: no trauma, bruising, abrasion, or contusion NECK: no midline tenderness, stepoffs or painful ROM CHEST: Lungs are clear to auscultation bilaterally and free of wheezes, rales, or rhonchi. Heart rate is regular rhythm, there are no murmurs, clicks, rubs, or gallops. There is no chest wall tenderness. ABD: Abdomen is soft and nontender. There is no guarding or rebound. Bowel sounds are normal in all 4 quadrants. There is no mass or organomegaly. EXT: Full but painful ROM of R ankle and foot. Most tender on medial malleolus. No obvious deformity. Warm pink and dry. NV in tact. Cap refill < 2s. Closed and isolated SKIN: Warm, pink, and dry. No erythema or rash Initial Vital Signs Initial Vital Signs: Vital Signs Temperature 98.3 F 07/17/18 23:15 Pulse Rate 73 07/17/18 23:15 Respiratory Rate 18 07/17/18 23:15 Blood Pressure 133/82 07/17/18 23:15 Pulse Oximetry 93 07/17/18 23:15 Procedures Orthopedic Splinting/Casting Injury #1: Side: right Lower Extremity Injury Location: ankle and foot Lower Extremity Immobilizer: boot orthosis Other Orthopedic Equipment: crutches Post splinting neuro exam: intact Post splinting vascular exam: intact Placed by: Nursing Course Course Narrative: pain is more significant than I would expect given exam, mechanism and xray findings (distal radius avulsion type fracture) so I asked that films be sent to [facility] for radiolgist interpretation and they note no additional findings. This raises suspicion of occult fracture vs. soft tissue injury. Will splint, encourage non weight bearing, and follow up with ortho Orders Ordered: ED Orders 07/17/18 23:23 XR ankle RT min 3V Stat XR foot RT min 3V Stat Discontinued Medications Ketorolac Tromethamine (Toradol) 60 mg IM NOW ONE Stop: 07/18/18 00:49 Last Admin: 07/18/18 01:00 Dose: 60 mg Vital Signs - 8 hr 07/17/18 23:15 Temperature 98.3 F Pulse Rate 73 Respiratory Rate 18 Blood Pressure 133/82 Pulse Oximetry 93 MDM - Extremity Injury (Lower) Differential Diagnosis Likely ankle sprain and strain and ankle fracture Medical Records Attestation: I reviewed the patient's medical records. Imaging Data Foot / Ankle Xray: Attestation: I personally reviewed and interpreted this imaging study as follows: My impression: small avulsion type fracture Right distal fibula Discharge Plan Departure Patient Disposition: Home Clinical Impression: Ankle fracture, lateral malleolus, closed Qualifiers: Encounter type: initial encounter Fracture alignment: nondisplaced Laterality: right Qualified Code(s): S82.64XA - Nondisplaced fracture of lateral malleolus of right fibula, initial encounter for closed fracture Instructions: Ankle Fracture Activity Restrictions/Additional Instructions: *You have been diagnosed with [ distal fibula fracture with possible additional occult fracture of the foot or soft tissue injury ] *What to do: *Take medications as directed *NO WEIGHT BEARING until seen by ortho *Follow up with [facility] early in the week, call for an appointment, let them know you were seen in the Emergency Department and we want you to be seen. *Return to ER if you should have any new, worsening or concerning symptoms Prescriptions: No Action Disabled Parking Permit Qty: 1 RF: 0 Saphris 5 mg tablet, sublingual 5 mg SL BID Qty: 60 RF: 5 furosemide 40 mg tablet 40 mg PO DAILY Qty: 30 RF: 2 hydroxyzine pamoate 50 mg capsule 50 mg PO TID PRN (Reason: Anxiety) Qty: 90 RF: 5 levothyroxine [Levoxyl] 175 mcg tablet 175 mcg PO DAILY Qty: 30 RF: 0 nadolol 40 mg tablet 40 mg PO DAILY Qty: 30 RF: 5 omeprazole 20 mg capsule,delayed release(DR/EC) 20 mg PO BID Qty: 60 RF: 2 sertraline 50 mg tablet 50 mg PO DAILY Qty: 30 RF: 5 spironolactone 50 mg tablet 50 mg PO DAILY Qty: 30 RF: 5 naltrexone 50 mg tablet 50 mg PO DAILY Qty: 30 RF: 0 multivitamin,[id number] [Complete Multivitamin] Tablet 1 tab PO DAILY RF: 0 Referrals: Miguel Ángel Leary MD [Primary Care Provider] - Aamir Ying MD [Physician] -
[2018-07-18] MEDS: KETOROLAC 60 MG/2 ML VIAL IM (01:00)
[2018-07-18 03:07] VITALS: BP 101/64; PULSE 87; RESP 15; O2SAT 100
== END 2018-07-18 03:07 | disposition home or self-care (01) ==
PROVIDERS: Emergency Provider Emergency Medicine; PCP Student in an Organized Health Care Education/Training Program
DX: S82.64XA Nondisplaced fracture of lateral malleolus of right fibula, initial encounter for closed fracture (principal)
CPT/HCPCS: 29405; 73610; 73630; 99283; J1885

== ENCOUNTER → 2018-07-26 10:03 | Outpatient (CLI) | payer OTHER, SELFPAY ==
[2018-07-26 11:01] LABS: Hematocrit 39.5 % (36-46); Hemoglobin 12.8 g/dL (12.0-16.0); Mean Corpuscular HGB Conc 32.3 % (30-36); Mean Corpuscular Hemoglobin 27.3 PG (26-34); Mean Corpuscular Volume 84.5 fL (80-100); Platelet Count 218 X10^3/uL (150-400); Red Blood Cell Count 4.68 X10^6/uL (4.0-5.2); Red Cell Distribution Width 15.6 % (11.6-14.8); White Blood Cell Count 6.3 X10^3/uL (4.5-11.0)
[2018-07-26 11:04] LABS: INR 1.1 (0.9-1.3); Prothrombin Time 12.3 SECONDS (10.1-12.7)
[2018-07-26 11:07] LABS: Hemoglobin A1C% w Est Avg Glu 9.6 % (4.0-6.0)
[2018-07-26 11:10] LABS: Neutrophils Absolute Manual 3339 /uL (3000-5900); RBC Morphology Normal Morphology; Total Cells Counted 100
[2018-07-26 11:24] LABS: Alanine Aminotransferase 67 IU/L (9-52); Albumin 4.1 g/dL (3.5-5.0); Albumin Globulin Ratio 1.3 (1.0-2.8); Alkaline Phosphatase 156 U/L (38-126); Aspartate Aminotransferase 57 IU/L (14-36); Bilirubin Direct 0.4 mg/dL (0.0-0.4); Bilirubin Total 0.6 mg/dL (0.2-1.3); Blood Urea Nitrogen 9 mg/dL (7-17); Carbon Dioxide 30 mmol/L (22-32); Chloride 98 mmol/L (98-107); Cholesterol 225 mg/dL (140-199); Estimated Glomerular Filt Rate > 60.0 mL/min (>60); Globulin 3.2 g/dL (1.7-4.1); Glucose 178 mg/dL (70-100); HDL Cholesterol 51 mg/dL (40-60); HEMOLYSIS < 15 (0-50); LDL Cholesterol Calculated 136 mg/dL (<100); Sodium 137 mmol/L (137-145); Total Protein 7.3 g/dL (6.3-8.2); Triglycerides 190 mg/dL (35-150)
[2018-07-26 11:37] LABS: Free T3, Triiodothyronine Free 2.35 pg/mL (2.77-5.27); Free T4, Direct Thyroxine 1.03 ng/dL (0.78-2.19)
[2018-07-26 11:38] LABS: Vitamin D 25 Hydroxy (D3) 34.5 ng/mL (30.0-100.0)
== END ==
PROVIDERS: PCP Student in an Organized Health Care Education/Training Program; Visit Provider Student in an Organized Health Care Education/Training Program
DX: F10.10 Alcohol abuse, uncomplicated (principal); K74.60 Unspecified cirrhosis of liver; E55.9 Vitamin D deficiency, unspecified; E03.9 Hypothyroidism, unspecified; Z13.220 Encounter for screening for lipoid disorders; R73.9 Hyperglycemia, unspecified
CPT/HCPCS: 36415; 80053; 80061; 82248; 82306; 83036; 84439; 84443; 84481; 85025; 85610

== ENCOUNTER → 2018-09-06 11:10 | Outpatient (CLI) | payer OTHER, MEDICAID, SELFPAY ==
[2018-09-06 12:57] LABS: Thyroid Stimulating Hormone 9.09 uIU/mL (0.47-4.68)
== END ==
PROVIDERS: PCP Student in an Organized Health Care Education/Training Program; Visit Provider Student in an Organized Health Care Education/Training Program
DX: C73 Malignant neoplasm of thyroid gland (principal); Z98.890 Other specified postprocedural states
CPT/HCPCS: 36415; 84439; 84443; 84481

== ENCOUNTER 2018-09-30 19:57 | Emergency (ER) | payer OTHER, MEDICAID, SELFPAY ==
[2018-09-30 20:11] VITALS: BP 103/66; PULSE 65; RESP 16; TEMP 36.3; O2SAT 95
--- NOTE | 2018-09-30 20:17 | ED.BACK ---
HPI - Back Pain/Injury <Sindi Armendariz PA-C - Last Filed: 09/30/18 22:47> General Chief Complaint: Back Pain/Injury Stated Complaint: Fall From Chair, Low Back Pain Time Seen by Provider: 09/30/18 20:17 Source: patient, family and EMS Mode of arrival: EMS Limitations: no limitations History of Present Illness HPI Narrative: This 42 female had a fall she believes from a swivel a deck chair prior to arrival, and was complaining right low back and hip pain, brought in by EMS. She states that she remembers walking there to sit any dinner and does not remember anything since then. Fall was not witnessed, but her significant other who was here with her states that he is aware she was walking to the chair and then had fall in. He states this swivel chair is very unstable and patient had also had 4 drinks. She states that she did not hit her head, denies headache, vomiting, vision change, or neck pain. She states that she does not really remember anything until EMS arrival but is sure that she fell onto her bottom in low back area. She states that her main concern is that her hips, especially the right, feel ?different?, and she is concerned about her right hip replacement being intact. She has some pain in her right low back, and also around her tailbone. She states she has chronic foot drop on the right and can't ascertain whether any new weakness. She states she has also left ankle has been somewhat sore and more so now. Her significant other thinks that she quit breathing for a few sec when he got to her, then started breathing again. He thought maybe the fall knocked the wind out of her. He states that she did not seem confused or to have any focal weakness then, nor has he observed any changes now. Patient has not had any chest pain, palpitations, dyspnea, nausea or other new symptoms today. Related Data Home Medications Medication Instructions Recorded Confirmed multivitamin,xw-[id number]-[id number] 1 tab PO DAILY 04/13/18 08/18/18 [Complete Multivitamin] Previous Rx's Medication Instructions Recorded Disabled Parking Permit #1 ea 06/23/18 asenapine 5 mg sublingual tablet 5 mg SL BID #60 tab 06/23/18 hydroxyzine pamoate 50 mg capsule 50 mg PO TID PRN #90 cap 06/23/18 nadolol 40 mg tablet 40 mg PO DAILY #30 tab 06/23/18 sertraline 50 mg tablet 50 mg PO DAILY #30 tab 06/23/18 spironolactone 50 mg tablet 50 mg PO DAILY #30 tab 06/23/18 furosemide 40 mg tablet 40 mg PO DAILY #30 tab 09/24/18 omeprazole 20 mg capsule,delayed 20 mg PO BID #60 cap 09/24/18 release levothyroxine 200 mcg tablet 200 mcg PO DAILY #30 tab 09/28/18 Allergies Allergy/AdvReac Type Severity Reaction Status Date / Time Penicillins [PENICILLINS] Allergy Unknown Verified 08/18/18 14:50 Sulfa (Sulfonamide Allergy Unknown Verified 08/18/18 14:50 Antibiotics) [SULFA (SULFONAMIDE ANTIBIOTICS)] sulfamethoxazole Allergy Verified 08/18/18 14:50 [From Bactrim] trimethoprim [From Bactrim] Allergy Verified 08/18/18 14:50 Review of Systems <Sindi Armendariz PA-C - Last Filed: 09/30/18 22:47> Review of Systems ROS Unobtainable: All systems reviewed & are unremarkable except as noted in HPI and below PFSH <Sindi Armendariz PA-C - Last Filed: 09/30/18 22:47> Medical History Anxiety (Chronic) Avascular necrosis (Chronic) COPD (chronic obstructive pulmonary disease) (Chronic) Cirrhosis (Chronic) Depression (Chronic) Esophageal varices (Chronic) Esophageal web (Chronic) Hayfever (Chronic) Hemorrhoids (Chronic) Hypothyroidism (Chronic 1997) Irregular periods/menstrual cycles (Chronic) Pancytopenia (Chronic) Seizures (Chronic) Shoulder pain (Chronic) Substance abuse (Chronic) Chicken pox (Resolved) Chlamydia (Resolved ~1988) History of total thyroidectomy (Resolved 1997) MRSA infection (Resolved) Thyroid cancer (Resolved 02/1998) Surgical History Anesthesia complication (Resolved) History of adenoidectomy (Resolved) History of bunionectomy (Resolved) History of bunionectomy (Resolved) History of dilation and curettage (Resolved) History of esophageal surgery (Resolved 2016) History of left hip replacement (Resolved 08/2017) History of placement of ear tubes (Resolved) History of right hip replacement (Resolved 11/2017) History of tonsillectomy (Resolved) Family History Father No problems noted. Mother Depression Hyperlipidemia Thyroid disorder Mental health problem Brother No problems noted. Grandfather Lung cancer Cancer Grandmother Thyroid disorder Potassium disorder Hyperlipidemia Hypertension Grandfather No problems noted. Grandmother No problems noted. Family/Other No problems noted. Social History Smoking Status: Former smoker alcohol intake: former substance use type: does not use Social History Smoking Status: Former smoker alcohol intake: former substance use type: does not use Exam <Sindi Armendariz PA-C - Last Filed: 09/30/18 22:47> Narrative Exam Narrative: GENERAL APPEARANCE: Patient resting comfortably, in no distress. HEENT: NC/AT, EOMI PULMONARY: Lungs clear to auscultation bilaterally CV: Regular rhythm regular without murmur, normal S1 and S2, no S3 or S4 ABDOMEN: Soft, nontender, nondistended DERMATOLOGIC: No abrasions, lacerations, or ecchymoses noted MUSCULOSKELETAL: No point tenderness over the cervical, thoracic, or lumbar spine. Normal range of motion of the C-spine without tenderness. She has moderate tenderness over the right lumbar musculature, most at the mid scapular line mid to inferior. Moderate tenderness over the sacrum and coccygeal area. Lower extremity strength 5/5 bilateral hip flexors, knee extensors, left foot plantar and dorsiflexion. Right foot plantar and dorsiflexion 4+/5. Negative straight leg raise bilaterally. Right ankle there is a moderate effusion versus the left. Tender at the medial ankle NEUROLOGIC: Alert with normal speech and coordination, no focal weakness Initial Vital Signs Initial Vital Signs: Vital Signs Temperature 97.3 F L 09/30/18 20:11 Pulse Rate 65 09/30/18 20:11 Respiratory Rate 16 09/30/18 20:11 Blood Pressure 103/66 09/30/18 20:11 Pulse Oximetry 95 09/30/18 20:11 <Oumar Salomon MD - Last Filed: 10/01/18 06:07> Initial Vital Signs Initial Vital Signs: Vital Signs Temperature 97.3 F L 09/30/18 20:11 Pulse Rate 65 09/30/18 20:11 Respiratory Rate 16 09/30/18 20:11 Blood Pressure 103/66 09/30/18 20:11 Pulse Oximetry 95 09/30/18 20:11 Course <Sindi Armendariz PA-C - Last Filed: 09/30/18 22:47> Additional Information: Reviewed with patient and her significant other no acute findings on studies aside from possible 1st metatarsal nondisplaced fracture on one view of her x-ray. She also had a previous ankle fracture a couple of months ago and states she has lost her brace. She was put in a walking boot and is able to bear weight comfortably with this. Advised to use her walker due to her underlying gait and balance difficulties. Advised to avoid excess alcohol as she has already at risk for fall and injury due to her chronic right footdrop, does not have full use of her left arm, etc. Advised follow-up with PCP in a few days for recheck and dedicated foot x-rays. Advised return if any acutely worsening symptoms. It appears unlikely that she had a syncopal event given the history that EMS, her significant other and she provide, baseline balance impairment, unstable chair that she was trying to sit in, and alcohol use this evening. Orders Ordered: ED Orders 09/30/18 20:31 CT head/brain wo con Stat XR ankle RT min 3V Stat XR hip w pel if done RT 2V Stat XR lumbar spine 2-3V Stat XR sacrum coccyx min 2V Stat EKG-12 Lead Stat Vital Signs - 8 hr 09/30/18 22:44 Pulse Rate 67 Respiratory Rate 14 Blood Pressure 114/66 Pulse Oximetry 97 <Oumar Saolmon MD - Last Filed: 10/01/18 06:07> Orders Ordered: ED Orders 09/30/18 20:31 CT head/brain wo con Stat XR ankle RT min 3V Stat XR hip w pel if done RT 2V Stat XR lumbar spine 2-3V Stat XR sacrum coccyx min 2V Stat EKG-12 Lead Stat Vital Signs - 8 hr 09/30/18 22:44 Pulse Rate 67 Respiratory Rate 14 Blood Pressure 114/66 Pulse Oximetry 97 MDM - Back Pain/Injury <Sindi Armendariz PA-C - Last Filed: 09/30/18 22:47> Imaging Data CT scan - head: Radiologist's impression: 15 Sindi Armendariz PA-C Find Patient Imaging Yin Burch 48 F 1970 ACTIVITY DATE EXAM STATUS AUTHOR 09/30/18 20:31 09/30/18 20:31 Signed Aamir Ballard 09/30/18 20:31 09/30/18 20:31 09/30/18 20:[address] [address] [address] Scan Report Signed Patient: Yin Burch LMR#: [id number] : 1970Acct:[id number] Age/Sex: 48 / FDate of Service: 09/30/18 Loc: ED Accession Number: [id number] Procedure: CT head/brain wo con Ordering Provider: Sindi Armendariz P.A-C PROCEDURE: CT HEAD/BRAIN WO CON INDICATIONS: fall, ? LOC TECHNIQUE: Noncontrast 4.5 mm thick angled axial sections acquired from the foramen magnum to the vertex, with coronal and sagittal reformats. For radiation dose reduction, the following was used: automated exposure control, adjustment of mA and/or kV according to patient size. COMPARISON: [facility], CT, CT HEAD/BRAIN WO CON, 04/13/2018, 13:29. FINDINGS: Image quality: Excellent. CSF spaces: Basal cisterns are patent. No extra-axial fluid collections. Ventricles are normal in size and shape. Brain: No intracranial hemorrhage, mass, or mass effect. Burt-white matter interface is preserved. Skull and face: There is a soft tissue laceration in the left parietal scalp region. Calvarium and visualized facial bones are intact, without suspicious lesions. Sinuses: Visualized sinuses and mastoids are clear. IMPRESSION: 1. No acute intracranial abnormality. 2. Left parietal scalp laceration without evidence of fracture. Dictated by: Aamir Ballard M.D. on 09/30/2018 at 21:11 Approved by: Aamir Ballard M.D. on 09/30/2018 at 21:13 lumbar: Radiologist's impression: [address] [address] XRay Report Signed Patient: Yin Burch LMR#: [id number] : 1970Acct:[id number] Age/Sex: 48 / FDate of Service: 09/30/18 Loc: ED Accession Number: [id number] Procedure: XR lumbar spine 2-3V Ordering Provider: Sindi Armendariz P.A-C PROCEDURE: XR LUMBAR SPINE 2-3V INDICATIONS: pain s/p fall TECHNIQUE: 3 views of the lumbar spine were acquired. COMPARISON: None. FINDINGS: Bones: 5 svu-lse-decmgoc vertebrae are present. There is transitional anatomy with sacralization of the L5 vertebra. There is minimal retrolisthesis at L1-L2, L2-L3, L2-L4, and L4-L5. There is mild facet arthropathy in the lower lumbar spine are. Mild to space narrowing demonstrated at L5-S1. No vertebral body compression fractures. No definite displaced fracture identified. No suspicious bony lesions. Soft tissues: Overlying bowel gas pattern is normal. No suspicious soft tissue calcifications. IMPRESSION: 1. No definite displaced or compression fracture. 2. Transitional anatomy with sacralization of L5. 3. Minimal multilevel retrolisthesis throughout the lumbar spine. 4. Mild facet arthropathy in the lower lumbar spine. Dictated by: Aamir Ballard M.D. on 09/30/2018 at 21:26 Approved by: Aamir Ballard M.D. on 09/30/2018 at 21:28 hip: Radiologist's impression: Yin Burch 48 F [address] [address] XRay Report Signed Patient: Yin Burch LMR#: [id number] : 1970Acct:[id number] Age/Sex: 48 / FDate of Service: 09/30/18 Loc: ED Accession Number: [id number] Procedure: XR hip w pel if done RT 2V Ordering Provider: Sindi Armendariz P.A-C PROCEDURE: XR HIP W PEL IF DONE RT 2V INDICATIONS: fall, pain s/p THR TECHNIQUE: AP pelvis with lateral view of the right hip. COMPARISON: None. FINDINGS: Bones: There are bilateral hip prostheses demonstrated. No fractures or dislocations. No suspicious periprosthetic lucencies. Pelvic ring appears intact. No suspicious bony lesions. Soft tissues: The visualized bowel gas pattern is normal. No suspicious soft tissue calcifications. IMPRESSION: 1. Bilateral hip prostheses demonstrated without definite fracture or dislocation. Dictated by: Aamir Ballard M.D. on 09/30/2018 at 21:25 Approved by: Aamir Ballard M.D. on 09/30/2018 at 21:26 ankle: Radiologist's impression: [facility] DATE TYPE STATUS AUTHOR Hx 09/30/18 20:31 Ballard,Aamir 09/30/18 20:31 Ballard,Aamir 09/30/18 20:31 Ballard,Aamir 09/30/18 20:31 Ballard,Aamir 09/30/18 20:31 Ballard,Aamir 07/17/18 23:23 MynorBarneyVelma 07/17/18 23:23 04/13/18 13:34 Aamir Ballard Tana L 48, F0 1970 REG ER, ED.LOC - Main ED: R12 Back Pain/Injury Search Chart NF - Not included in interaction checking ONSET Today 20:11 Yin Burch 48 [place] 1970 [place] [address] XRay Report Signed Patient: Yin Burch LMR#: [id number] : 1970Acct:[id number] Age/Sex: 48 / FDate of Service: 09/30/18 Loc: ED Accession Number: [id number] Procedure: XR ankle RT min 3V Ordering Provider: Sindi Armendariz P.A-C PROCEDURE: XR ANKLE RT MIN 3V INDICATIONS: pain/fall TECHNIQUE: 3 views of the ankle were acquired. COMPARISON: [facility], , XR ANKLE 3 VIEWS WEIGHT BEARING RIGHT, 09/13/2018, 15:36. FINDINGS: Bones: No definite fracture or dislocation of the ankle. Ankle mortise is normally aligned. On the lateral projection, there is a small cortical disruption at the base of the 1st metatarsal suggestive of a small avulsion fracture. Soft tissues: No tibiotalar joint effusion. Achilles tendon appears intact. IMPRESSION: 1. Small fracture at the base of the 1st metatarsal. Recommend dedicated foot x-ray when clinically feasible. 2. No definite fracture or dislocation of the ankle. Dictated by: Aamir Ballard M.D. on 09/30/2018 at 21:34 Approved by: Aamir Ballard M.D. on 09/30/2018 at 21:38 sacrum/coccyx: Radiologist's impression: [address] [address] XRay Report Signed Patient: Yin Burch LMR#: [id number] : 1970Acct:[id number] Age/Sex: 48 / FDate of Service: 09/30/18 Loc: ED Accession Number: [id number] Procedure: XR sacrum coccyx min 2V Ordering Provider: Sindi Armendariz P.A-C PROCEDURE: XR SACRUM COCCYX MIN 2V INDICATIONS: fall from chair, pain TECHNIQUE: 3 views of the sacrum and coccyx acquired. COMPARISON: [facility], CR, XR LUMBAR SPINE 2-3V, 09/30/2018, 20:45. FINDINGS: Bones: No definite fractures or dislocations. There are bilateral hip prostheses. No suspicious bony lesions. Soft tissues: Visualized bowel gas pattern is normal. No suspicious soft tissue densities. IMPRESSION: 1. No definite fracture. Dictated by: Aamir Ballard M.D. on 09/30/2018 at 21:28 Approved by: Aamir Ballard M.D. on 09/30/2018 at 21:34 ECG Data Attestation: I personally reviewed and interpreted this ECG as follows: (Normal sinus rhythm, rate 62, normal axis, no acute change) Prior ECG tracings: available for review Discharge Plan Departure Patient Disposition: Home Clinical Impression: Contusion of multiple sites, Acute coccygeal pain Fall Qualifiers: Encounter type: initial encounter Qualified Code(s): W19.XXXA - Unspecified fall, initial encounter Metatarsal bone fracture Qualifiers: Encounter type: initial encounter Metatarsal bone: first Fracture type: closed Fracture alignment: nondisplaced Laterality: right Qualified Code(s): S92.314A - Nondisplaced fracture of first metatarsal bone, right foot, initial encounter for closed fracture Discharge Date/Time: 09/30/18 22:44 Interventions: ED Discharge Assessment Last Done: 09/30/18 22:44 Instructions: DI for Foot Fracture, DI for Coccydynia Activity Restrictions/Additional Instructions: Please return as we talked about if you have any acutely worsening symptoms. Otherwise, please follow-up with your PCP in a few days, and at that time I would suggest repeating an x-ray of your right foot. The radiologist thought you could have a small fracture, but only saw this on one view in x-ray and suggested repeating a foot x-ray. You should wear the walking boot we gave you at all times when you are bearing weight, and use your walker for balance. This will help protect the area of your ankle fracture that you had a couple of months ago as well. Please avoid pressure on your tailbone. No fracture of that area, your low back, or your hips was found tonight, and your hip prostheses do not appear to be a place. I agree with you that most likely you fell due to the instability of the chair you were sitting in and having had some alcohol tonight. Given the balance difficulties that you were telling me about, you should carefully limit your alcohol to no more than 1 drink daily as you are at a lot of risk for falls and injury. Please call your PCP 1st thing in the morning to schedule follow-up and repeat x-ray Prescriptions: No Action omeprazole 20 mg capsule,delayed release(DR/EC) 20 mg PO BID Qty: 60 RF: 5 furosemide 40 mg tablet 40 mg PO DAILY Qty: 30 RF: 5 levothyroxine 200 mcg tablet 200 mcg PO DAILY Qty: 30 RF: 5 Disabled Parking Permit Qty: 1 RF: 0 Saphris 5 mg tablet, sublingual 5 mg SL BID Qty: 60 RF: 5 hydroxyzine pamoate 50 mg capsule 50 mg PO TID PRN (Reason: Anxiety) Qty: 90 RF: 5 nadolol 40 mg tablet 40 mg PO DAILY Qty: 30 RF: 5 sertraline 50 mg tablet 50 mg PO DAILY Qty: 30 RF: 5 spironolactone 50 mg tablet 50 mg PO DAILY Qty: 30 RF: 5 multivitamin,qk-egot-oawuqxma [Complete Multivitamin] Tablet 1 tab PO DAILY RF: 0 Referrals: Miguel Ángel Leary MD [Primary Care Provider] - <Oumar Salomon MD - Last Filed: 05/24/19 06:07> Cosign ED Attending Cosraature Attestation: I was present in the ER at the time of this patient's evaluation. I was available for consultation or to see the patient directly. I agree with the assessment and treatment plan.
--- NOTE | 2018-09-30 20:31 | DI.RAD.S_ITS ---
PROCEDURE: XR ANKLE RT MIN 3V INDICATIONS: pain/fall TECHNIQUE: 3 views of the ankle were acquired. COMPARISON: [facility], CR, XR ANKLE 3 VIEWS WEIGHT BEARING RIGHT, 09/13/2018, 15:36. FINDINGS: Bones: No definite fracture or dislocation of the ankle. Ankle mortise is normally aligned. On the lateral projection, there is a small cortical disruption at the base of the 1st metatarsal suggestive of a small avulsion fracture. Soft tissues: No tibiotalar joint effusion. Achilles tendon appears intact. IMPRESSION: 1. Small fracture at the base of the 1st metatarsal. Recommend dedicated foot x-ray when clinically feasible. 2. No definite fracture or dislocation of the ankle. Dictated by: Aamir Ballard M.D. on 09/30/2018 at 21:34 Approved by: Aamir Ballard M.D. on 09/30/2018 at 21:38
--- NOTE | 2018-09-30 20:31 | DI.RAD.S_ITS ---
PROCEDURE: XR HIP W PEL IF DONE RT 2V INDICATIONS: fall, pain s/p THR TECHNIQUE: AP pelvis with lateral view of the right hip. COMPARISON: None. FINDINGS: Bones: There are bilateral hip prostheses demonstrated. No fractures or dislocations. No suspicious periprosthetic lucencies. Pelvic ring appears intact. No suspicious bony lesions. Soft tissues: The visualized bowel gas pattern is normal. No suspicious soft tissue calcifications. IMPRESSION: 1. Bilateral hip prostheses demonstrated without definite fracture or dislocation. Dictated by: Aamir Ballard M.D. on 09/30/2018 at 21:25 Approved by: Aamir Ballard M.D. on 09/30/2018 at 21:26
--- NOTE | 2018-09-30 20:31 | DI.CT.S_ITS ---
PROCEDURE: CT HEAD/BRAIN WO CON INDICATIONS: fall, ? LOC TECHNIQUE: Noncontrast 4.5 mm thick angled axial sections acquired from the foramen magnum to the vertex, with coronal and sagittal reformats. For radiation dose reduction, the following was used: automated exposure control, adjustment of mA and/or kV according to patient size. COMPARISON: [facility], CT, CT HEAD/BRAIN WO CON, 04/13/2018, 13:29. FINDINGS: Image quality: Excellent. CSF spaces: Basal cisterns are patent. No extra-axial fluid collections. Ventricles are normal in size and shape. Brain: No intracranial hemorrhage, mass, or mass effect. Burt-white matter interface is preserved. Skull and face: There is a soft tissue laceration in the left parietal scalp region. Calvarium and visualized facial bones are intact, without suspicious lesions. Sinuses: Visualized sinuses and mastoids are clear. IMPRESSION: 1. No acute intracranial abnormality. 2. Left parietal scalp laceration without evidence of fracture. Dictated by: Aamir Ballard M.D. on 09/30/2018 at 21:11 Approved by: Aamir Ballard M.D. on 09/30/2018 at 21:13
--- NOTE | 2018-09-30 20:31 | DI.RAD.S_ITS ---
PROCEDURE: XR SACRUM COCCYX MIN 2V INDICATIONS: fall from chair, pain TECHNIQUE: 3 views of the sacrum and coccyx acquired. COMPARISON: [facility], CR, XR LUMBAR SPINE 2-3V, 09/30/2018, 20:45. FINDINGS: Bones: No definite fractures or dislocations. There are bilateral hip prostheses. No suspicious bony lesions. Soft tissues: Visualized bowel gas pattern is normal. No suspicious soft tissue densities. IMPRESSION: 1. No definite fracture. Dictated by: Aamir Ballard M.D. on 09/30/2018 at 21:28 Approved by: Aamir Ballard M.D. on 09/30/2018 at 21:34
--- NOTE | 2018-09-30 20:31 | DI.RAD.S_ITS ---
PROCEDURE: XR LUMBAR SPINE 2-3V INDICATIONS: pain s/p fall TECHNIQUE: 3 views of the lumbar spine were acquired. COMPARISON: None. FINDINGS: Bones: 5 ucn-vxw-apyaxbu vertebrae are present. There is transitional anatomy with sacralization of the L5 vertebra. There is minimal retrolisthesis at L1-L2, L2-L3, L2-L4, and L4-L5. There is mild facet arthropathy in the lower lumbar spine are. Mild to space narrowing demonstrated at L5-S1. No vertebral body compression fractures. No definite displaced fracture identified. No suspicious bony lesions. Soft tissues: Overlying bowel gas pattern is normal. No suspicious soft tissue calcifications. IMPRESSION: 1. No definite displaced or compression fracture. 2. Transitional anatomy with sacralization of L5. 3. Minimal multilevel retrolisthesis throughout the lumbar spine. 4. Mild facet arthropathy in the lower lumbar spine. Dictated by: Aamir Ballard M.D. on 09/30/2018 at 21:26 Approved by: Aamir Ballard M.D. on 09/30/2018 at 21:28
--- NOTE | 2018-09-30 20:43 | ED_ITS ---
HPI - Back Pain/Injury <Sindi Armendariz PA-C - Last Filed: 09/30/18 22:47> General Chief Complaint: Back Pain/Injury Stated Complaint: Fall From Chair, Low Back Pain Time Seen by Provider: 09/30/18 20:17 Source: patient, family and EMS Mode of arrival: EMS Limitations: no limitations History of Present Illness HPI Narrative: This 42 female had a fall she believes from a swivel a deck chair prior to arrival, and was complaining right low back and hip pain, brought in by EMS. She states that she remembers walking there to sit any dinner and does not remember anything since then. Fall was not witnessed, but her significant other who was here with her states that he is aware she was walking to the chair and then had fall in. He states this swivel chair is very unstable and patient had also had 4 drinks. She states that she did not hit her head, denies headache, vomiting, vision change, or neck pain. She states that she does not really remember anything until EMS arrival but is sure that she fell onto her bottom in low back area. She states that her main concern is that her hips, especially the right, feel ?different?, and she is concerned about her right hip replacement being intact. She has some pain in her right low back, and also around her tailbone. She states she has chronic foot drop on the right and can't ascertain whether any new weakness. She states she has also left ankle has been somewhat sore and more so now. Her significant other thinks that she quit breathing for a few sec when he got to her, then started breathing again. He thought maybe the fall knocked the wind out of her. He states that she did not seem confused or to have any focal weakness then, nor has he observed any changes now. Patient has not had any chest pain, palpitations, dyspnea, nausea or other new symptoms today. Related Data Home Medications Medication Instructions Recorded Confirmed multivitamin,[id number] 1 tab PO DAILY 04/13/18 08/18/18 [Complete Multivitamin] Previous Rx's Medication Instructions Recorded Disabled Parking Permit #1 ea 06/23/18 asenapine 5 mg sublingual tablet 5 mg SL BID #60 tab 06/23/18 hydroxyzine pamoate 50 mg capsule 50 mg PO TID PRN #90 cap 06/23/18 nadolol 40 mg tablet 40 mg PO DAILY #30 tab 06/23/18 sertraline 50 mg tablet 50 mg PO DAILY #30 tab 06/23/18 spironolactone 50 mg tablet 50 mg PO DAILY #30 tab 06/23/18 furosemide 40 mg tablet 40 mg PO DAILY #30 tab 09/24/18 omeprazole 20 mg capsule,delayed 20 mg PO BID #60 cap 09/24/18 release levothyroxine 200 mcg tablet 200 mcg PO DAILY #30 tab 09/28/18 Allergies Allergy/AdvReac Type Severity Reaction Status Date / Time Penicillins [PENICILLINS] Allergy Unknown Verified 08/18/18 14:50 Sulfa (Sulfonamide Allergy Unknown Verified 08/18/18 14:50 Antibiotics) [SULFA (SULFONAMIDE ANTIBIOTICS)] sulfamethoxazole Allergy Verified 08/18/18 14:50 [From Bactrim] trimethoprim [From Bactrim] Allergy Verified 08/18/18 14:50 Review of Systems <Sindi Armendariz PA-C - Last Filed: 09/30/18 22:47> Review of Systems ROS Unobtainable: All systems reviewed & are unremarkable except as noted in HPI and below PFSH <Sindi Armendariz PA-C - Last Filed: 09/30/18 22:47> Medical History Anxiety (Chronic) Avascular necrosis (Chronic) COPD (chronic obstructive pulmonary disease) (Chronic) Cirrhosis (Chronic) Depression (Chronic) Esophageal varices (Chronic) Esophageal web (Chronic) Hayfever (Chronic) Hemorrhoids (Chronic) Hypothyroidism (Chronic 1997) Irregular periods/menstrual cycles (Chronic) Pancytopenia (Chronic) Seizures (Chronic) Shoulder pain (Chronic) Substance abuse (Chronic) Chicken pox (Resolved) Chlamydia (Resolved ~1988) History of total thyroidectomy (Resolved 1997) MRSA infection (Resolved) Thyroid cancer (Resolved 02/1998) Surgical History Anesthesia complication (Resolved) History of adenoidectomy (Resolved) History of bunionectomy (Resolved) History of bunionectomy (Resolved) History of dilation and curettage (Resolved) History of esophageal surgery (Resolved 2016) History of left hip replacement (Resolved 08/2017) History of placement of ear tubes (Resolved) History of right hip replacement (Resolved 11/2017) History of tonsillectomy (Resolved) Family History Father No problems noted. Mother Depression Hyperlipidemia Thyroid disorder Mental health problem Brother No problems noted. Grandfather Lung cancer Cancer Grandmother Thyroid disorder Potassium disorder Hyperlipidemia Hypertension Grandfather No problems noted. Grandmother No problems noted. Family/Other No problems noted. Social History Smoking Status: Former smoker alcohol intake: former substance use type: does not use Social History Smoking Status: Former smoker alcohol intake: former substance use type: does not use Exam <Sindi Armendariz PA-C - Last Filed: 09/30/18 22:47> Narrative Exam Narrative: GENERAL APPEARANCE: Patient resting comfortably, in no distress. HEENT: NC/AT, EOMI PULMONARY: Lungs clear to auscultation bilaterally CV: Regular rhythm regular without murmur, normal S1 and S2, no S3 or S4 ABDOMEN: Soft, nontender, nondistended DERMATOLOGIC: No abrasions, lacerations, or ecchymoses noted MUSCULOSKELETAL: No point tenderness over the cervical, thoracic, or lumbar spine. Normal range of motion of the C-spine without tenderness. She has moderate tenderness over the right lumbar musculature, most at the mid scapular line mid to inferior. Moderate tenderness over the sacrum and coccygeal area. Lower extremity strength 5/5 bilateral hip flexors, knee extensors, left foot plantar and dorsiflexion. Right foot plantar and dorsiflexion 4+/5. Negative straight leg raise bilaterally. Right ankle there is a moderate effusion versus the left. Tender at the medial ankle NEUROLOGIC: Alert with normal speech and coordination, no focal weakness Initial Vital Signs Initial Vital Signs: Vital Signs Temperature 97.3 F L 09/30/18 20:11 Pulse Rate 65 09/30/18 20:11 Respiratory Rate 16 09/30/18 20:11 Blood Pressure 103/66 09/30/18 20:11 Pulse Oximetry 95 09/30/18 20:11 <Oumar Salomon MD - Last Filed: 10/01/18 06:07> Initial Vital Signs Initial Vital Signs: Vital Signs Temperature 97.3 F L 09/30/18 20:11 Pulse Rate 65 09/30/18 20:11 Respiratory Rate 16 09/30/18 20:11 Blood Pressure 103/66 09/30/18 20:11 Pulse Oximetry 95 09/30/18 20:11 Course <Sindi Armendariz PA-C - Last Filed: 09/30/18 22:47> Additional Information: Reviewed with patient and her significant other no acute findings on studies aside from possible 1st metatarsal nondisplaced fracture on one view of her x-ray. She also had a previous ankle fracture a couple of months ago and states she has lost her brace. She was put in a walking boot and is able to bear weight comfortably with this. Advised to use her walker due to her underlying gait and balance difficulties. Advised to avoid excess alcohol as she has already at risk for fall and injury due to her chronic right footdrop, does not have full use of her left arm, etc. Advised follow-up with PCP in a few days for recheck and dedicated foot x-rays. Advised return if any acutely worsening symptoms. It appears unlikely that she had a syncopal event given the history that EMS, her significant other and she provide, baseline balance impairment, unstable chair that she was trying to sit in, and alcohol use this evening. Orders Ordered: ED Orders 09/30/18 20:31 CT head/brain wo con Stat XR ankle RT min 3V Stat XR hip w pel if done RT 2V Stat XR lumbar spine 2-3V Stat XR sacrum coccyx min 2V Stat EKG-12 Lead Stat Vital Signs - 8 hr 09/30/18 22:44 Pulse Rate 67 Respiratory Rate 14 Blood Pressure 114/66 Pulse Oximetry 97 <Oumar Salomon MD - Last Filed: 10/01/18 06:07> Orders Ordered: ED Orders 09/30/18 20:31 CT head/brain wo con Stat XR ankle RT min 3V Stat XR hip w pel if done RT 2V Stat XR lumbar spine 2-3V Stat XR sacrum coccyx min 2V Stat EKG-12 Lead Stat Vital Signs - 8 hr 09/30/18 22:44 Pulse Rate 67 Respiratory Rate 14 Blood Pressure 114/66 Pulse Oximetry 97 MDM - Back Pain/Injury <Sindi Armendariz PA-C - Last Filed: 09/30/18 22:47> Imaging Data CT scan - head: Radiologist's impression: 15 Sindi Armendariz PA-C Find Patient Imaging Yin Burch 48 F 1970 ACTIVITY DATE EXAM STATUS AUTHOR 09/30/18 20:31 09/30/18 20:31 Signed Aamir Ballard 09/30/18 20:31 09/30/18 20:31 09/30/18 20:[address] [address] [address] Scan Report Signed Patient: Yin Burch LMR#: [id number] : 1970Acct:[id number] Age/Sex: 48 / FDate of Service: 09/30/18 Loc: ED Accession Number: [id number] Procedure: CT head/brain wo con Ordering Provider: Sindi Armendariz P.A-C PROCEDURE: CT HEAD/BRAIN WO CON INDICATIONS: fall, ? LOC TECHNIQUE: Noncontrast 4.5 mm thick angled axial sections acquired from the foramen magnum to the vertex, with coronal and sagittal reformats. For radiation dose reduction, the following was used: automated exposure control, adjustment of mA and/or kV according to patient size. COMPARISON: [facility], CT, CT HEAD/BRAIN WO CON, 04/13/2018, 13:29. FINDINGS: Image quality: Excellent. CSF spaces: Basal cisterns are patent. No extra-axial fluid collections. Ventricles are normal in size and shape. Brain: No intracranial hemorrhage, mass, or mass effect. Burt-white matter interface is preserved. Skull and face: There is a soft tissue laceration in the left parietal scalp region. Calvarium and visualized facial bones are intact, without suspicious lesions. Sinuses: Visualized sinuses and mastoids are clear. IMPRESSION: 1. No acute intracranial abnormality. 2. Left parietal scalp laceration without evidence of fracture. Dictated by: Aamir Ballard M.D. on 09/30/2018 at 21:11 Approved by: Aamir Ballard M.D. on 09/30/2018 at 21:13 lumbar: Radiologist's impression: [address] [address] XRay Report Signed Patient: Yin Burch LMR#: [id number] : 1970Acct:[id number] Age/Sex: 48 / FDate of Service: 09/30/18 Loc: ED Accession Number: [id number] Procedure: XR lumbar spine 2-3V Ordering Provider: Sindi Armendariz P.A-C PROCEDURE: XR LUMBAR SPINE 2-3V INDICATIONS: pain s/p fall TECHNIQUE: 3 views of the lumbar spine were acquired. COMPARISON: None. FINDINGS: Bones: 5 [id number] vertebrae are present. There is transitional anatomy with sacralization of the L5 vertebra. There is minimal retrolisthesis at L1-L2, L2- L3, L2-L4, and L4-L5. There is mild facet arthropathy in the lower lumbar spine are. Mild to space narrowing demonstrated at L5-S1. No vertebral body compression fractures. No definite displaced fracture identified. No suspicious bony lesions. Soft tissues: Overlying bowel gas pattern is normal. No suspicious soft tissue calcifications. IMPRESSION: 1. No definite displaced or compression fracture. 2. Transitional anatomy with sacralization of L5. 3. Minimal multilevel retrolisthesis throughout the lumbar spine. 4. Mild facet arthropathy in the lower lumbar spine. Dictated by: Aamir Ballard M.D. on 09/30/2018 at 21:26 Approved by: Aamir Ballard M.D. on 09/30/2018 at 21:28 hip: Radiologist's impression: Yin Burch 48 F [address] [address] XRay Report Signed Patient: Yin Burch LMR#: [id number] : 1970Acct:[id number] Age/Sex: 48 / FDate of Service: 09/30/18 Loc: ED Accession Number: [id number] Procedure: XR hip w pel if done RT 2V Ordering Provider: Sindi Armendariz P.A-C PROCEDURE: XR HIP W PEL IF DONE RT 2V INDICATIONS: fall, pain s/p THR TECHNIQUE: AP pelvis with lateral view of the right hip. COMPARISON: None. FINDINGS: Bones: There are bilateral hip prostheses demonstrated. No fractures or disl ocations. No suspicious periprosthetic lucencies. Pelvic ring appears intact. No suspicious bony lesions. Soft tissues: The visualized bowel gas pattern is normal. No suspicious soft tissue calcifications. IMPRESSION: 1. Bilateral hip prostheses demonstrated without definite fracture or dislocation. Dictated by: Aamir Ballard M.D. on 09/30/2018 at 21:25 Approved by: Aamir Ballard M.D. on 09/30/2018 at 21:26 ankle: Radiologist's impression: [facility] DATE TYPE STATUS AUTHOR Hx 09/30/18 20:31 Ballard,Aamir 09/30/18 20:31 Ballard,Aamir 09/30/18 20:31 Ballard,Aamir 09/30/18 20:31 Ballard,Aamir 09/30/18 20:31 Ballard,Aamir 07/17/18 23:23 [place] 07/17/18 23:23 04/13/18 13:34 Aamir Ballard Tana L 48, F0 1970 REG ER, ED.LOC - Main ED: R12 Back Pain/Injury Search Chart NF - Not included in interaction checking ONSET Today 20:11 Yin Burch 48 F 1970 [place] [address] XRay Report Signed Patient: Yin Burch LMR#: [id number] : 1970Acct:[id number] Age/Sex: 48 / FDate of Service: 09/30/18 Loc: ED Accession Number: [id number] Procedure: XR ankle RT min 3V Ordering Provider: Sindi Armendariz P.A-C PROCEDURE: XR ANKLE RT MIN 3V INDICATIONS: pain/fall TECHNIQUE: 3 views of the ankle were acquired. COMPARISON: [facility], , XR ANKLE 3 VIEWS WEIGHT BEARING RIGHT, 09/13/2018, 15:36. FINDINGS: Bones: No definite fracture or dislocation of the ankle. Ankle mortise is normally aligned. On the lateral projection, there is a small cortical disruption at the base of the 1st metatarsal suggestive of a small avulsion fracture. Soft tissues: No tibiotalar joint effusion. Achilles tendon appears intact. IMPRESSION: 1. Small fracture at the base of the 1st metatarsal. Recommend dedicated foot x-ray when clinically feasible. 2. No definite fracture or dislocation of the ankle. Dictated by: Aamir Ballard M.D. on 09/30/2018 at 21:34 Approved by: Aamir Ballard M.D. on 09/30/2018 at 21:38 sacrum/coccyx: Radiologist's impression: [address] [address] XRay Report Signed Patient: Yin Burch LMR#: [id number] : 1970Acct:[id number] Age/Sex: 48 / FDate of Service: 09/30/18 Loc: ED Accession Number: [id number] Procedure: XR sacrum coccyx min 2V Ordering Provider: Sindi Armendariz P.A-C PROCEDURE: XR SACRUM COCCYX MIN 2V INDICATIONS: fall from chair, pain TECHNIQUE: 3 views of the sacrum and coccyx acquired. COMPARISON: [facility], CR, XR LUMBAR SPINE 2-3V, 09/30/2018, 20:45. FINDINGS: Bones: No definite fractures or dislocations. There are bilateral hip prostheses. No suspicious bony lesions. Soft tissues: Visualized bowel gas pattern is normal. No suspicious soft tissue densities. IMPRESSION: 1. No definite fracture. Dictated by: Aamir Ballard M.D. on 09/30/2018 at 21:28 Approved by: Aamir Ballard M.D. on 09/30/2018 at 21:34 ECG Data Attestation: I personally reviewed and interpreted this ECG as follows: (Normal sinus rhythm, rate 62, normal axis, no acute change) Prior ECG tracings: available for review Discharge Plan Departure Patient Disposition: Home Clinical Impression: Contusion of multiple sites, Acute coccygeal pain Fall Qualifiers: Encounter type: initial encounter Qualified Code(s): W19.XXXA - Unspecified fall, initial encounter Metatarsal bone fracture Qualifiers: Encounter type: initial encounter Metatarsal bone: first Fracture type: closed Fracture alignment: nondisplaced Laterality: right Qualified Code(s): S92.314A - Nondisplaced fracture of first metatarsal bone, right foot, initial encounter for closed fracture Discharge Date/Time: 09/30/18 22:44 Interventions: ED Discharge Assessment Last Done: 09/30/18 22:44 Instructions: DI for Foot Fracture, DI for Coccydynia Activity Restrictions/Additional Instructions: Please return as we talked about if you have any acutely worsening symptoms. Otherwise, please follow-up with your PCP in a few days, and at that time I would suggest repeating an x-ray of your right foot. The radiologist thought you could have a small fracture, but only saw this on one view in x-ray and suggested repeating a foot x-ray. You should wear the walking boot we gave you at all times when you are bearing weight, and use your walker for balance. This will help protect the area of your ankle fracture that you had a couple of months ago as well. Please avoid pressure on your tailbone. No fracture of that area, your low back, or your hips was found tonight, and your hip prostheses do not appear to be a place. I agree with you that most likely you fell due to the instability of the chair you were sitting in and having had some alcohol tonight. Given the balance difficulties that you were telling me about, you should carefully limit your alcohol to no more than 1 drink daily as you are at a lot of risk for falls and injury. Please call your PCP 1st thing in the morning to schedule follow-up and repeat x-ray Prescriptions: No Action omeprazole 20 mg capsule,delayed release(DR/EC) 20 mg PO BID Qty: 60 RF: 5 furosemide 40 mg tablet 40 mg PO DAILY Qty: 30 RF: 5 levothyroxine 200 mcg tablet 200 mcg PO DAILY Qty: 30 RF: 5 Disabled Parking Permit Qty: 1 RF: 0 Saphris 5 mg tablet, sublingual 5 mg SL BID Qty: 60 RF: 5 hydroxyzine pamoate 50 mg capsule 50 mg PO TID PRN (Reason: Anxiety) Qty: 90 RF: 5 nadolol 40 mg tablet 40 mg PO DAILY Qty: 30 RF: 5 sertraline 50 mg tablet 50 mg PO DAILY Qty: 30 RF: 5 spironolactone 50 mg tablet 50 mg PO DAILY Qty: 30 RF: 5 multivitamin,[id number] [Complete Multivitamin] Tablet 1 tab PO DAILY RF: 0 Referrals: Miguel Ángel Leary MD [Primary Care Provider] - <Oumar Salomon MD - Last Filed: 10/01/18 06:07> Cosign ED Attending Cosraature Attestation: I was present in the ER at the time of this patient's evaluation. I was available for consultation or to see the patient directly. I agree with the assessment and treatment plan.
--- NOTE | 2018-09-30 21:44 | PC.NURSE ---
PT states low back, hip and tailbone pain after falling on deck, pt unaware of how she fell yet pt states he thinks she was going to sit in chair on deck and missed it or it broke as it is an unstable chair. Pt was going to sit to have dinner and states has been drinking alcohol and may have had wind knocked out of her. Pt denies head or neck pain not taking blood thinners. No acute abnormalities noted to low back and pt has hx of hip replacement. Pt able to move on to bed ramirez and off indepently with RN at side.
[2018-09-30 22:44] VITALS: BP 114/66; PULSE 67; RESP 14; O2SAT 97
== END 2018-09-30 22:44 | disposition home or self-care (01) ==
PROVIDERS: Emergency Provider Internal Medicine; PCP Student in an Organized Health Care Education/Training Program
DX: S92.314A Nondisplaced fracture of first metatarsal bone, right foot, initial encounter for closed fracture (principal); T07.XXXA Unspecified multiple injuries, initial encounter; M53.3 Sacrococcygeal disorders, not elsewhere classified; M25.551 Pain in right hip; M25.571 Pain in right ankle and joints of right foot; W07.XXXA Fall from chair, initial encounter
CPT/HCPCS: 70450; 72100; 72220; 73502; 73610; 93005; 93010; 99283; 99284

== ENCOUNTER → 2018-10-15 08:47 | Outpatient (CLI) | payer OTHER, MEDICAID, SELFPAY ==
--- NOTE | 2018-10-15 08:49 | DI.MG.S_ITS ---
BILATERAL DIGITAL SCREENING MAMMOGRAM 3D/2D WITH CAD: 10/15/2018 CLINICAL: Baseline exam. Routine screening. No prior exams were available for comparison. The tissue of both breasts is heterogeneously dense. This may lower the sensitivity of mammography. Current study was also evaluated with a Computer Aided Detection (CAD) system. There are benign vascular calcifications in both breasts. No significant masses, calcifications, or other findings are seen in either breast. IMPRESSION: There is no mammographic evidence of malignancy. A 1 year screening mammogram is recommended. This exam was interpreted at Station ID: [id number]. NOTE: For mammograms, a report in lay terms will be sent to the patient. Approximately 15% of breast malignancies will not be visualized mammographically. In the management of a palpable breast mass, a negative mammogram must not discourage biopsy of a clinically suspicious lesion. Electronically Signed By: Francisco dia/osmani:10/15/2018 12:20:48 letter sent: Normal Exam ACR BI-RADS Category 2: Benign Finding(s) [id number]
== END ==
PROVIDERS: PCP Student in an Organized Health Care Education/Training Program; Visit Provider Student in an Organized Health Care Education/Training Program
DX: Z12.31 Encounter for screening mammogram for malignant neoplasm of breast (principal)
CPT/HCPCS: 77063; 77067

== ENCOUNTER 2019-02-21 11:45 | Outpatient (RCR) | payer OTHER, MEDICAID, SELFPAY ==
--- NOTE | 2018-10-06 17:35 | PT.OIE ---
Current Diagnoses Pain in right ankle and joints of right foot (10/06/18) Displaced fracture of lateral malleolus of left fibula, subsequent encounter for closed fracture with routine healing (10/06/18) Sprain of unspecified ligament of left ankle, subsequent encounter (10/06/18) Past Medical History (Last Reviewed 09/30/18 @ 20:40 by Sindi Armendariz PA-C) Anxiety (Chronic) Avascular necrosis (Chronic) COPD (chronic obstructive pulmonary disease) (Chronic) Cirrhosis (Chronic) Depression (Chronic) Esophageal varices (Chronic) Esophageal web (Chronic) Hayfever (Chronic) Hemorrhoids (Chronic) Hypothyroidism (Chronic 1997) Irregular periods/menstrual cycles (Chronic) Pancytopenia (Chronic) Seizures (Chronic) Shoulder pain (Chronic) Substance abuse (Chronic) Chicken pox (Resolved) Chlamydia (Resolved ) History of total thyroidectomy (Resolved 1997) MRSA infection (Resolved) Thyroid cancer (Resolved 02/1998) Past Surgical History (Last Reviewed 09/30/18 @ 20:41 by Sindi Armendariz PA-C) Anesthesia complication (Resolved) History of adenoidectomy (Resolved) History of bunionectomy (Resolved) History of bunionectomy (Resolved) History of dilation and curettage (Resolved) History of esophageal surgery (Resolved 2016) History of left hip replacement (Resolved 08/2017) History of placement of ear tubes (Resolved) History of right hip replacement (Resolved 11/2017) History of tonsillectomy (Resolved) Provider Visit Care Team Role Provider Type Miguel Ángel Leary MD Primary Care Provider Physician Specialty: Internal Medicine Address: [address] [place] [address], [id number] Email: Nikki Yang PA-C Attending Provider Physician Specialty: Orthopedic Surgery Address: [address] [place] [address], [phone] Fax: Email: Physical Therapy Initial Evaluation PT-OP-A Visit Information Start: 10/06/18 13:40 Freq: Status: Active Protocol: Document 10/06/18 14:45 EA (Rec: 10/06/18 15:17 EA [id number]) Out-Patient Physical Therapy Visit Information Visit Information Visit Type Initial Evaluation Visit Start Time 12:15 Visit Stop Time 13:00 Total Visit Minutes 40 Visit Number 1 Evaluation Information Evaluation Date 10/06/18 PT-OP-B Current Condition Start: 10/06/18 13:40 Freq: Status: Active Protocol: Document 10/06/18 14:45 GABI (Rec: 10/06/18 15:17 EA [id number]) Current Condition History of Current Condition Onset Date 07/17/2018 Current Complaints s/p right ankle sprain History of Current Condition Patient is a poor historian: Patient reports she tripped and fell at home and twisted her right ankle on July 17, 2018. Patient then went to [facility] and given pain meds and was on boot upon discharged. She stated saw her specialist and referred to PT and discharged using foot immobilizer two weeks ago. Medical reports identified and on September 30, 2018 that she underwent multiple joints diagnostic imaging with no significant fracture identified except with avulsion fracture at the base of the right big toe but requires further imaging. Patient is currently ambulating with no AD and states she has ankle brace but does not like to use it. Medical reports from patient clinic stated that she is clear for weight bearing as tolerated with the use of ankle brace and they are aware that patient is not compliant with recommended WB and AD. Prior Treatments and Tests Pain Medication, on a foot immobilizer until two weeks ago from todays date. 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 Treatment Goals Patient/Caregiver Goals Patient would like to increase right foot strength to improve walking. Prior Functional Status Baseline Function- ADL's Independent Baseline Function- Mobility Independent Baseline Function- Gait Gait difficulty due to right foot dropped with ability to walk > a block. Baseline Function- Work/School Patient is not currently working and is not on disability. Baseline Function- Other Patient able to perform light activities at home and she got help from her boyfriend and mother with heavy house chores . Current Functional Impairments (Reported) Functional Limitations- ADL's Unable to perform full house hold chores; laundry, outdoor errands and heavy tasks at home requires assistance. Personal care performed with difficulty Functional Limitations- Mobility/Gait Indep with out the use of AD in less than a block Functional Limitations- Work/School Not currently working Functional Limitations- Recreation/ Unable to do Hobbies Personal Factors Other Personal Factors That May Effect History of low back surgery, Therapy/Recovery Depression, 2 falls in the last 6 months with significant injury on last fall, Liver disease, seizure with last episode happen a year ago. PT-OP-C Subjective Start: 10/06/18 13:40 Freq: Status: Active Protocol: Document 10/06/18 17:35 EA (Rec: 10/07/18 08:13 EA [id number]) OP-PT Subjective Patient Comments Patient Comments I would like to improve my leg strength and get rid of the pain so I can walk better. Patient Reported Progress Improving Patient Questionnaires Foot & Ankle Ability Measure- ADL and Sports FAAM-ADL Score 20 FAAM-ADL Impairment 60 to 79% Impaired (Score 16- 32) OP-PT Pain Assessment Pain Assessment Grid Paper Pain Assessment Grid Completed Yes Location Right Anterior Medial Foot Pain Location Details right ankle and base of 1st toe Intensity 5 Scale Used Numeric (1 - 10) Description Tender Tightness With Movement Frequency Intermittent Pain Aggravating Factors Activity Standing Walking PT-OP-D Balance Start: 10/06/18 13:40 Freq: Status: Active Protocol: Document 10/06/18 17:35 EA (Rec: 10/07/18 11:10 EA [id number]) OP-PT Balance Assessment Sitting Balance Static Sitting Balance Ability Normal Dynamic Sitting Balance Ability Normal Standing Balance Static Standing Balance Ability Good Dynamic Standing Balance Ability Fair Balance Tests Functional Reach Functional Reach Test 9 Functional Reach Impairment Rating 1 to <20% Impaired (Score 9) Single Limb Standing Single Limb- Right unable Single Limb- Left unable Semi-Tandem Standing Semi-Tandem Standing Balance Requires assist to position and last < 2 second Tandem Tandem Standing Unable Du Fall Scale Copyright Permission Florian JM, Florian RM, Mohan SJ. Development of a scale to identify the fall- prone patient. Can J Aging 1989;8;366-7. Jackeline Du (2009). Preventing patient falls. (2nd ed). Wallace: [place]. PT-OP-F Manual Assessment Start: 10/06/18 13:40 Freq: Status: Active Protocol: Document 10/06/18 17:35 EA (Rec: 10/07/18 11:10 EA [id number]) Manual Assessments Soft Tissue Assessment Soft Tissue Mobility Assessment Tightness to calf muscles, hip rotators, quads, hamstrings Joint Mobility Assessment Joint Mobility Assessment Normal TC joint mobility PT-OP-G Mobility & Gait Start: 10/06/18 13:40 Freq: Status: Active Protocol: Document 10/06/18 17:35 EA (Rec: 10/07/18 11:10 EA [id number]) OP Mobility Evaluation Bed Mobility Rolling Minimal difficulty but indep Supine to and from Sit Moderate difficulty but indep Transfers Sit to Stand Indep Bed to Chair Transfers indep Functional Movements Lifting and Carrying Indep Squats 45 deg Running Assessment unable OP Gait Assessment Gait Gait Assistance Required: Independent Able to Maintain Weight Bearing Status Yes During Gait Assistive Devices Assistive Device None Gait Deviations General Gait Pattern Antalgic Decreased Feet Clearance Wide Based Gait Comments Gait Comments Patient exhibits steppage gait with decreased WB to RLE Stair Climbing Evaluation Evaluation Level of Assist On Stairs Independent Devices Stair Climbing Assistive Devices Left Railing Right Railing Technique/Endurance Stair Climbing Direction Ascend and Descend Stair Climbing Technique Step to Step Number of Steps Climbed 12 Comments Stair Climbing Comments slow w/ step to step gait with the use of both HR PT-OP-J Posture/Palpation/Skin Start: 10/06/18 13:40 Freq: Status: Active Protocol: Document 10/06/18 17:35 EA (Rec: 10/07/18 11:10 EA [id number]) Posture Evaluation Comments Posture Comments Rounded shoulder with increased lumbar curves and slight hip flex (fair posture) Palpation Assessment Location One Palpation Location ant. mid TC joint, base of 1st metatarsal joint Palpation Findings Tenderness Palpation Details Grade 2/4 tenderness Skin Assessment Circumference Measurement 1 Location mid TC joint Comments L=26 ; R=28 (slight right angle swelling but no signs of edema) PT-OP-K Range of Motion Start: 10/06/18 13:40 Freq: Status: Active Protocol: Document 10/06/18 17:35 EA (Rec: 10/07/18 11:10 EA [id number]) Shoulder Goniometric Range of Motion Shoulder ROM Limitations Shoulder ROM Limitations Soft Tissue Tightness Muscle Weakness Comments Impaired left shoulder function with a history of shoulder surgery. Hip Goniometric Range of Motion Hip Measured in Degrees Left Active Flexion w/Knee Flexed 90 Extension 15 Internal Rotation 25 External Rotation 20 Right Active Flexion w/Knee Flexed 90 Extension 15 Abduction 45 Internal Rotation 25 External Rotation 15 Hip ROM Limitations Hip ROM Limitations Soft Tissue Tightness Knee Goniometric Range of Motion Knee Measured in Degrees Right Knee ROM WFL Yes Ankle and Foot Goniometric Range of Motion Ankle and Foot Measured in Degrees Right Active Dorsiflexion with Knee Flexed 10 Plantarflexion 45 Inversion 30 Eversion 20 Left Active Ankle/Foot ROM WFL Yes Dorsiflexion with Knee Flexed 20 Plantarflexion 45 Inversion 35 Eversion 25 PT-OP-L Special Tests Start: 10/06/18 13:40 Freq: Status: Active Protocol: Document 10/06/18 17:35 EA (Rec: 10/07/18 11:10 EA [id number]) Special Tests Foot/Ankle Special Tests Talor Tilt Test Results - PT-OP-M Strength Start: 10/06/18 13:40 Freq: Status: Active Protocol: Document 10/06/18 17:35 EA (Rec: 10/07/18 11:10 EA [id number]) Hip Strength Hip Manual Muscle Testing Right Flexion (L2) 4 Good Extension (S1) 4 Good Abduction 4- Good- External Rotation 3+ Fair+ Internal Rotation 3+ Fair+ Left Flexion (L2) 4 Good Extension (S1) 4 Good Abduction 4 Good Adduction 4 Good External Rotation 3+ Fair+ Internal Rotation 3+ Fair+ Knee Strength Knee Manual Muscle Testing Left Reason Not Measured WFL Right Reason Not Measured WFL Ankle/Foot Strength Ankle and Foot Manual Muscle Testing Right Dorsiflexion (L4) 3 Fair Plantarflexion (S1) 3+ Fair+ Inversion 3 Fair Eversion (S1) 3 Fair Left Reason Not Measured WFL Toe Strength Toe Manual Muscle Testing Right Great Toe Flexion 4- Good- PT-OP-Q Treatments Start: 10/06/18 13:40 Freq: Status: Active Protocol: Document 10/06/18 14:45 EA (Rec: 10/06/18 15:17 EA [id number]) Self-Care/Home Management Treatment Education Patient Education Body Mechanics Fall Risk Home Exercise Program Pain Management Safety PT-OP-T Assessment and Plan Start: 10/06/18 13:40 Freq: Status: Active Protocol: Document 10/06/18 14:45 EA (Rec: 10/06/18 15:17 EA [id number]) Physical Therapy Assessment Rehab Potential Rehabilitation Potential Good Evaluation Complexity Number of Personal Factors/Comorbidities 3 or More Number of Body Systems Impaired 4 or More Clinical Presentation at Evaluation Evolving Impairments Impairments Activity Tolerance Balance Functional Mobility Gait Pain ROM Soft Tissue Mobility Strength Goals Four Impairment Two fall incidence in the last 6 months Glass Deposition Tender Goal (LTG) Patient will report no fall in the next 4 wks LTG Duration 4 wks Three Impairment Impaired gait Assisted Goal (LTG) Patient increased R ankle DF strength by 1/2 -1 grade to improve gait. LTG Duration 5 wks Two Impairment Impaired distance ambulation Glass Deposition Tender Goal (LTG) Patient will ambulate > a block with no assistive device with improve gait LTG Duration 4 wks One Impairment FAAM score 20/75 Glass Deposition Tender Goal (LTG) FAAM score of 40/75 LTG Duration 5 wks Assessment Summary Assessment Pleasant 68th y/o female patient with referring diagnosis of left ankle sprain , however it is right ankle sprain upon assessment and I have cleared this to the referring clinic. Today patient demonstrates impaired gait (steppage) due to weakness of right ankle dorsiflexors. Patient instability noted with stance to right which maybe due lateral/medial ankle stabilizer and pain. Right ankle ligamentous tests reveals negative. Ocular inspection reveals very slight swelling at mid joint but no edema upon palpation. Anterior TC joint and base of 1st metatarsal joint is tender to touch but normal temp. Due to above dysfunction , patient unable to perform ADL's independently and with difficulty on certain activities. In my professional opinion patient would greatly benefit with skilled PT to improve function . Physical Therapy Plan Frequency and Duration Frequency of Treatment 2x/Week Duration of Treatment 10 WKS Plan of Care Start Date 10/06/18 Plan of Care End Date 12/15/18 Therapeutic Interventions Therapeutic Interventions Balance Training Gait Training Home Exercise Program Joint Mobilizations Manual Therapy Neuromuscular Re-education Patient/Caregiver Education Self-Care/Home Management Soft Tissue Mobilization Taping Therapeutic Exercises Modalities Cold Pack/Ice Massage Electric Stimulation Next Visit Focus/Plan Next Note Type Treatment Note Next Visit Plan HEP with images. Balance and LE strengthening. Modalities for pain. Gait training with the use of AD as needed.
--- NOTE | 2018-10-06 17:35 | PT.OPPOC ---
Current Diagnoses Pain in right ankle and joints of right foot (10/06/18) Displaced fracture of lateral malleolus of left fibula, subsequent encounter for closed fracture with routine healing (10/06/18) Sprain of unspecified ligament of left ankle, subsequent encounter (10/06/18) Provider Visit Care Team Role Provider Type Miguel Ángel Leary MD Primary Care Provider Physician Specialty: Internal Medicine Address: [address] [place] [address], [phone] Email: Nikki Yang PA-C Attending Provider Physician Specialty: Orthopedic Surgery Address: [address] [place] [address], [phone] Fax: Email: Plan Of Care PT-OP-T Assessment and Plan Start: 10/06/18 13:40 Freq: Status: Active Protocol: Document 10/06/18 14:45 EA (Rec: 10/06/18 15:17 EA [id number]) Physical Therapy Assessment Rehab Potential Rehabilitation Potential Good Evaluation Complexity Number of Personal Factors/Comorbidities 3 or More Number of Body Systems Impaired 4 or More Clinical Presentation at Evaluation Evolving Impairments Impairments Activity Tolerance Balance Functional Mobility Gait Pain ROM Soft Tissue Mobility Strength Goals Four Impairment Two fall incidence in the last 6 months Snf Goal (LTG) Patient will report no fall in the next 4 wks LTG Duration 4 wks Three Impairment Impaired gait Double Needle Operator Lockstitch Goal (LTG) Patient increased R ankle DF strength by 1/2 -1 grade to improve gait. LTG Duration 5 wks Two Impairment Impaired distance ambulation Snf Goal (LTG) Patient will ambulate > a block with no assistive device with improve gait LTG Duration 4 wks One Impairment FAAM score 20/75 Double Needle Operator Lockstitch Goal (LTG) FAAM score of 40/75 LTG Duration 5 wks Assessment Summary Assessment Pleasant 68th y/o female patient with referring diagnosis of left ankle sprain , however it is right ankle sprain upon assessment and I have cleared this to the referring clinic. Today patient demonstrates impaired gait (steppage) due to weakness of right ankle dorsiflexors. Patient instability noted with stance to right which maybe due lateral/medial ankle stabilizer and pain. Right ankle ligamentous tests reveals negative. Ocular inspection reveals very slight swelling at mid joint but no edema upon palpation. Anterior TC joint and base of 1st metatarsal joint is tender to touch but normal temp. Due to above dysfunction , patient unable to perform ADL's independently and with difficulty on certain activities. In my professional opinion patient would greatly benefit with skilled PT to improve function . Physical Therapy Plan Frequency and Duration Frequency of Treatment 2x/Week Duration of Treatment 10 WKS Plan of Care Start Date 10/06/18 Plan of Care End Date 12/15/18 Therapeutic Interventions Therapeutic Interventions Balance Training Gait Training Home Exercise Program Joint Mobilizations Manual Therapy Neuromuscular Re-education Patient/Caregiver Education Self-Care/Home Management Soft Tissue Mobilization Taping Therapeutic Exercises Modalities Cold Pack/Ice Massage Electric Stimulation Next Visit Focus/Plan Next Note Type Treatment Note Next Visit Plan HEP with images. Balance and LE strengthening. Modalities for pain. Gait training with the use of AD as needed. Plan of Care Dates Plan of Care Start Date 10/06/18 Plan of Care End Date 12/15/18 Please Sign and Return: I have reviewed this Plan of Care and certify that the skilled therapy services above are required to meet the patient?s needs. Physician Signature Date Printed Name and Credentials Clinical Instructor Signature Printed Name and Credentials
--- NOTE | 2018-10-15 16:00 | PT.OTN ---
Current Diagnoses Pain in right ankle and joints of right foot (10/15/18) Displaced fracture of lateral malleolus of left fibula, subsequent encounter for closed fracture with routine healing (10/15/18) Sprain of unspecified ligament of left ankle, subsequent encounter (10/15/18) Physical Therapy Treatment Note PT-OP-A Visit Information Start: 10/06/18 13:40 Freq: Status: Active Protocol: Document 10/15/18 16:00 RCC (Rec: 10/16/18 15:27 RCC [email or web address]) Out-Patient Physical Therapy Visit Information Visit Information Visit Type Treatment Note Visit Start Time 16:00 Visit Stop Time 16:50 Total Visit Minutes 50 Visit Number 2 Number of LEATHER SCRAPER Visits 0 Evaluation Information Evaluation Date 10/06/18 PT-OP-B Current Condition Start: 10/06/18 13:40 Freq: Status: Active Protocol: Document 10/06/18 14:45 EA (Rec: 10/06/18 15:17 EA [id number]) Current Condition History of Current Condition Onset Date 07/17/2018 Current Complaints s/p right ankle sprain History of Current Condition Patient is a poor historian: Patient reports she tripped and fell at home and twisted her right ankle on July 17, 2018. Patient then went [facility] same day and given pain meds and was on boot upon discharged. She stated saw her specialist and referred to PT and discharged using foot immobilzer two weeks ago. Medical reports identified and on September 30, 2018 that she underwent multiple joints diagnostic imaging with no significant fracture identified except with avulsion fracture at the base of the right big toe but requires further imaging. Patient is currently ambulating with no AD and states she has ankle brace but does not like to use it. Medical reports from patient clinic stated that she is clear for weight bearing as tolerated with the use of ankle brace and they are aware that patient is not compliant with recommended WB and AD. Prior Treatments and Tests Pain Medication, on a foot immobilizer until two weeks ago from todays date. Future Testing and Treatments Planned She will see her corporate communications specialist on the second week of October/2018 for follow up. Treatment Goals Patient/Caregiver Goals Patient would like to increase right foot strength to improve walking. Prior Functional Status Baseline Function- ADL's Independent Baseline Function- Mobility Independent Baseline Function- Gait Gait difficulty due to right foot dropped with ability to walk > a block. Baseline Function- Work/School Patient is not currently working and is not on disability. Baseline Function- Other Patient able to perform light activities at home and she got help from her boyfriend and mother with heavy house chores . Current Functional Impairments (Reported) Functional Limitations- ADL's Unable to perform full house hold chores; laundry, outdoor errands and heavy tasks at home requires assistance. Personal care performed with difficulty Functional Limitations- Mobility/Gait Indep with out the use of AD in less than a block Functional Limitations- Work/School Not currently working Functional Limitations- Recreation/ Unable to do Hobbies Personal Factors Other Personal Factors That May Effect History of low back surgery, Therapy/Recovery Depression, 2 falls in the last 6 months with significant injury on last fall, Liver disease, seizure with last episode happen a year ago. PT-OP-C Subjective Start: 10/06/18 13:40 Freq: Status: Active Protocol: Document 10/15/18 16:00 RCC (Rec: 10/16/18 15:27 RCC [email or web address]) OP-PT Subjective Patient Comments Patient Comments Pt admits she is not doing any exercises. She is not wearing her ankle brace, states her doctor told her she didn't have to wear it. PT-OP-D Balance Start: 10/06/18 13:40 Freq: Status: Active Protocol: Document 10/06/18 17:35 EA (Rec: 10/07/18 11:10 EA [id number]) OP-PT Balance Assessment Sitting Balance Static Sitting Balance Ability Normal Dynamic Sitting Balance Ability Normal Standing Balance Static Standing Balance Ability Good Dynamic Standing Balance Ability Fair Balance Tests Functional Reach Functional Reach Test 9 Functional Reach Impairment Rating 1 to <20% Impaired (Score 9) Single Limb Standing Single Limb- Right unable Single Limb- Left unable Semi-Tandem Standing Semi-Tandem Standing Balance Requires assist to position and last < 2 second Tandem Tandem Standing Unable Du Fall Scale Copyright Permission Florian NEVES, Florian RM, Mohan S[place]. Development of a scale to identify the fall- prone patient. Can J Aging 1989;8;366-7. Jackeline Du (2009). Preventing patient falls. (2nd ed). [place]: [place]. PT-OP-F Manual Assessment Start: 10/06/18 13:40 Freq: Status: Active Protocol: Document 10/06/18 17:35 EA (Rec: 10/07/18 11:10 EA [id number]) Manual Assessments Soft Tissue Assessment Soft Tissue Mobility Assessment Tightness to calf muscles, hip rotators, quads, hamstrings Joint Mobility Assessment Joint Mobility Assessment Normal TC joint mobility PT-OP-G Mobility & Gait Start: 10/06/18 13:40 Freq: Status: Active Protocol: Document 10/06/18 17:35 EA (Rec: 10/07/18 11:10 EA [id number]) OP Mobility Evaluation Bed Mobility Rolling Minimal difficulty but indep Supine to and from Sit Moderate difficulty but indep Transfers Sit to Stand Indep Bed to Chair Transfers indep Functional Movements Lifting and Carrying Indep Squats 45 deg Running Assessment unable OP Gait Assessment Gait Gait Assistance Required: Independent Able to Maintain Weight Bearing Status Yes During Gait Assistive Devices Assistive Device None Gait Deviations General Gait Pattern Antalgic Decreased Feet Clearance Wide Based Gait Comments Gait Comments Patient exhibits steppage gait with decreased WB to RLE Stair Climbing Evaluation Evaluation Level of Assist On Stairs Independent Devices Stair Climbing Assistive Devices Left Railing Right Railing Technique/Endurance Stair Climbing Direction Ascend and Descend Stair Climbing Technique Step to Step Number of Steps Climbed 12 Comments Stair Climbing Comments slow w/ step to step gait with the use of both HR PT-OP-J Posture/Palpation/Skin Start: 10/06/18 13:40 Freq: Status: Active Protocol: Document 10/06/18 17:35 EA (Rec: 10/07/18 11:10 EA [id number]) Posture Evaluation Comments Posture Comments Rounded shoulder with increased lumbar curves and slight hip flex (fair posture) Palpation Assessment Location One Palpation Location ant. mid TC joint, base of 1st metatarsal joint Palpation Findings Tenderness Palpation Details Grade 2/4 tenderness Skin Assessment Circumference Measurement 1 Location mid TC joint Comments L=26 ; R=28 (slight right angle swelling but no signs of edema) PT-OP-K Range of Motion Start: 10/06/18 13:40 Freq: Status: Active Protocol: Document 10/06/18 17:35 EA (Rec: 10/07/18 11:10 EA [id number]) Shoulder Goniometric Range of Motion Shoulder ROM Limitations Shoulder ROM Limitations Soft Tissue Tightness Muscle Weakness Comments Impaired left shoulder function with a history of shoulder surgery. Hip Goniometric Range of Motion Hip Measured in Degrees Left Active Flexion w/Knee Flexed 90 Extension 15 Internal Rotation 25 External Rotation 20 Right Active Flexion w/Knee Flexed 90 Extension 15 Abduction 45 Internal Rotation 25 External Rotation 15 Hip ROM Limitations Hip ROM Limitations Soft Tissue Tightness Knee Goniometric Range of Motion Knee Measured in Degrees Right Knee ROM WFL Yes Ankle and Foot Goniometric Range of Motion Ankle and Foot Measured in Degrees Right Active Dorsiflexion with Knee Flexed 10 Plantarflexion 45 Inversion 30 Eversion 20 Left Active Ankle/Foot ROM WFL Yes Dorsiflexion with Knee Flexed 20 Plantarflexion 45 Inversion 35 Eversion 25 PT-OP-L Special Tests Start: 10/06/18 13:40 Freq: Status: Active Protocol: Document 10/06/18 17:35 EA (Rec: 10/07/18 11:10 EA [id number]) Special Tests Foot/Ankle Special Tests Talor Tilt Test Results - PT-OP-M Strength Start: 10/06/18 13:40 Freq: Status: Active Protocol: Document 10/06/18 17:35 EA (Rec: 10/07/18 11:10 EA [id number]) Hip Strength Hip Manual Muscle Testing Right Flexion (L2) 4 Good Extension (S1) 4 Good Abduction 4- Good- External Rotation 3+ Fair+ Internal Rotation 3+ Fair+ Left Flexion (L2) 4 Good Extension (S1) 4 Good Abduction 4 Good Adduction 4 Good External Rotation 3+ Fair+ Internal Rotation 3+ Fair+ Knee Strength Knee Manual Muscle Testing Left Reason Not Measured WFL Right Reason Not Measured WFL Ankle/Foot Strength Ankle and Foot Manual Muscle Testing Right Dorsiflexion (L4) 3 Fair Plantarflexion (S1) 3+ Fair+ Inversion 3 Fair Eversion (S1) 3 Fair Left Reason Not Measured WFL Toe Strength Toe Manual Muscle Testing Right Great Toe Flexion 4- Good- PT-OP-Q Treatments Start: 10/06/18 13:40 Freq: Status: Active Protocol: Document 10/15/18 16:00 RCC (Rec: 10/16/18 15:27 RCC [email or web address]) Therapeutic Exercises Sitting Exercises 3 way ankle Sitting Exercise Name inv, ever, DF Side right Resistance L1 band Reps/Minutes x10 each Comments fatigue ABCs- ankle AROM Side right Comments 1 set towel scrunches Side right 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/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 Reps/Minutes x3 min ankle inversion, eversion, DF isometrics Side right Reps/Minutes 2x10 Comments 5-8 sec hold each Standing Exercises HC stretch Side bilateral Equipment Used CARMINA Reps/Minutes 3x30 sec Manual Therapy Treatment Joint Mobilizations talocrural Direction A/P Grade II Body Position Supine Comments right Manual Techniques PROM Type gentle ankle DF, inversion and eversion Body Location R ankle Body Position Supine Reps/Duration x10 each PT-OP-R Modalities Start: 10/06/18 13:40 Freq: Status: Active Protocol: Document 10/15/18 16:00 RCC (Rec: 10/16/18 15:27 [facility] [email or web address]) Hot Pack/Cold Pack Treatment Cold Pack Location R ankle Patient Position Hooklying Treatment Duration (minutes) 10 Patient Tolerance Good PT-OP-T Assessment and Plan Start: 10/06/18 13:40 Freq: Status: Active Protocol: Document 10/15/18 16:00 [facility] (Rec: 10/16/18 15:27 [facility] [email or web address]) Physical Therapy Assessment Assessment Summary Assessment Pt given HEP today for R ankle inversion and eversion isometrics, ABCs for ROM, and towel scrunches. Pt fatigued with seated and supine activities today, but no c/o pain. We did not add AROM vs resistance to her HEP to see how she tolerated first full treatment. Physical Therapy Plan Frequency and Duration Frequency of Treatment 2x/Week Duration of Treatment 10 WKS Plan of Care Start Date 10/06/18 Plan of Care End Date 12/15/18 Next Visit Focus/Plan Next Note Type Treatment Note Next Visit Plan tandem stance vs SL balance when able, cont R ankle stabilization
--- NOTE | 2018-10-22 15:32 | PT.OTN ---
Current Diagnoses Pain in right ankle and joints of right foot (10/22/18) Displaced fracture of lateral malleolus of left fibula, subsequent encounter for closed fracture with routine healing (10/22/18) Sprain of unspecified ligament of left ankle, subsequent encounter (10/22/18) Physical Therapy Treatment Note PT-OP-A Visit Information Start: 10/06/18 13:40 Freq: Status: Active Protocol: Document 10/22/18 15:26 SA (Rec: 10/22/18 15:32 SA [email or web address]) Out-Patient Physical Therapy Visit Information Visit Information Visit Type Treatment Note Visit Start Time 14:30 Visit Stop Time 15:18 Total Visit Minutes 48 Visit Number 3 Number of JAVA J2EE ARCHITECT Visits 1 PT-OP-B Current Condition Start: 10/06/18 13:40 Freq: Status: Active Protocol: Document 10/06/18 14:45 EA (Rec: 10/06/18 15:17 EA [id number]) Current Condition History of Current Condition Onset Date 07/17/2018 Current Complaints s/p right ankle sprain History of Current Condition Patient is a poor historian: Patient reports she tripped and fell at home and twisted her right ankle on July 17, 2018. Patient then went to [facility] on the same day and given pain meds and was on boot upon discharged. She stated saw her specialist and referred to PT and discharged using foot immobilzer two weeks ago. Medical reports identified and on September 30, 2018 that she underwent multiple joints diagnostic imaging with no significant fracture identified except with avulsion fracture at the base of the right big toe but requires further imaging. Patient is currently ambulating with no AD and states she has ankle brace but does not like to use it. Medical reports from patient clinic stated that she is clear for weight bearing as tolerated with the use of ankle brace and they are aware that patient is not compliant with recommended WB and AD. Prior Treatments and Tests Pain Medication, on a foot immobilizer until two weeks ago from todays date. Future Testing and Treatments Planned She will see her immigration specialist on the second week of October/2018 for follow up. Treatment Goals Patient/Caregiver Goals Patient would like to increase right foot strength to improve walking. Prior Functional Status Baseline Function- ADL's Independent Baseline Function- Mobility Independent Baseline Function- Gait Gait difficulty due to right foot dropped with ability to walk > a block. Baseline Function- Work/School Patient is not currently working and is not on disability. Baseline Function- Other Patient able to perform light activities at home and she got help from her boyfriend and mother with heavy house chores . Current Functional Impairments (Reported) Functional Limitations- ADL's Unable to perform full house hold chores; laundry, outdoor errands and heavy tasks at home requires assistance. Personal care performed with difficulty Functional Limitations- Mobility/Gait Indep with out the use of AD in less than a block Functional Limitations- Work/School Not currently working Functional Limitations- Recreation/ Unable to do Hobbies Personal Factors Other Personal Factors That May Effect History of low back surgery, Therapy/Recovery Depression, 2 falls in the last 6 months with significant injury on last fall, Liver disease, seizure with last episode happen a year ago. PT-OP-C Subjective Start: 10/06/18 13:40 Freq: Status: Active Protocol: Document 10/22/18 15:26 SA (Rec: 10/22/18 15:32 SA [email or web address]) OP-PT Subjective Patient Comments Patient Comments Pt presents to clinic without ankle brace/AFO and states using a SPC makes her feel less stable. PT-OP-D Balance Start: 10/06/18 13:40 Freq: Status: Active Protocol: Document 10/06/18 17:35 EA (Rec: 10/07/18 11:10 EA [id number]) OP-PT Balance Assessment Sitting Balance Static Sitting Balance Ability Normal Dynamic Sitting Balance Ability Normal Standing Balance Static Standing Balance Ability Good Dynamic Standing Balance Ability Fair Balance Tests Functional Reach Functional Reach Test 9 Functional Reach Impairment Rating 1 to <20% Impaired (Score 9) Single Limb Standing Single Limb- Right unable Single Limb- Left unable Semi-Tandem Standing Semi-Tandem Standing Balance Requires assist to position and last < 2 second Tandem Tandem Standing Unable Du Fall Scale Copyright Permission PT-OP-F Manual Assessment Start: 10/06/18 13:40 Freq: Status: Active Protocol: Document 10/06/18 17:35 EA (Rec: 10/07/18 11:10 EA [id number]) Manual Assessments Soft Tissue Assessment Soft Tissue Mobility Assessment Tightness to calf muscles, hip rotators, quads, hamstrings Joint Mobility Assessment Joint Mobility Assessment Normal TC joint mobility PT-OP-G Mobility & Gait Start: 10/06/18 13:40 Freq: Status: Active Protocol: Document 10/06/18 17:35 EA (Rec: 10/07/18 11:10 EA [id number]) OP Mobility Evaluation Bed Mobility Rolling Minimal difficulty but indep Supine to and from Sit Moderate difficulty but indep Transfers Sit to Stand Indep Bed to Chair Transfers indep Functional Movements Lifting and Carrying Indep Squats 45 deg Running Assessment unable OP Gait Assessment Gait Gait Assistance Required: Independent Able to Maintain Weight Bearing Status Yes During Gait Assistive Devices Assistive Device None Gait Deviations General Gait Pattern Antalgic Decreased Feet Clearance Wide Based Gait Comments Gait Comments Patient exhibits steppage gait with decreased WB to RLE Stair Climbing Evaluation Evaluation Level of Assist On Stairs Independent Devices Stair Climbing Assistive Devices Left Railing Right Railing Technique/Endurance Stair Climbing Direction Ascend and Descend Stair Climbing Technique Step to Step Number of Steps Climbed 12 Comments Stair Climbing Comments slow w/ step to step gait with the use of both HR PT-OP-J Posture/Palpation/Skin Start: 10/06/18 13:40 Freq: Status: Active Protocol: Document 10/06/18 17:35 EA (Rec: 10/07/18 11:10 EA [id number]) Posture Evaluation Comments Posture Comments Rounded shoulder with increased lumbar curves and slight hip flex (fair posture) Palpation Assessment Location One Palpation Location ant. mid TC joint, base of 1st metatarsal joint Palpation Findings Tenderness Palpation Details Grade 2/4 tenderness Skin Assessment Circumference Measurement 1 Location mid TC joint Comments L=26 ; R=28 (slight right angle swelling but no signs of edema) PT-OP-K Range of Motion Start: 10/06/18 13:40 Freq: Status: Active Protocol: Document 10/06/18 17:35 EA (Rec: 10/07/18 11:10 EA [id number]) Shoulder Goniometric Range of Motion Shoulder ROM Limitations Shoulder ROM Limitations Soft Tissue Tightness Muscle Weakness Comments Impaired left shoulder function with a history of shoulder surgery. Hip Goniometric Range of Motion Hip Left Active Flexion w/Knee Flexed 90 Extension 15 Internal Rotation 25 External Rotation 20 Right Active Flexion w/Knee Flexed 90 Extension 15 Abduction 45 Internal Rotation 25 External Rotation 15 Hip ROM Limitations Hip ROM Limitations Soft Tissue Tightness Knee Goniometric Range of Motion Knee Right Knee ROM WFL Yes Ankle and Foot Goniometric Range of Motion Ankle and Foot Right Active Dorsiflexion with Knee Flexed 10 Plantarflexion 45 Inversion 30 Eversion 20 Left Active Ankle/Foot ROM WFL Yes Dorsiflexion with Knee Flexed 20 Plantarflexion 45 Inversion 35 Eversion 25 PT-OP-L Special Tests Start: 10/06/18 13:40 Freq: Status: Active Protocol: Document 10/06/18 17:35 EA (Rec: 10/07/18 11:10 EA [id number]) Special Tests Foot/Ankle Special Tests Talor Tilt Test Results - PT-OP-M Strength Start: 10/06/18 13:40 Freq: Status: Active Protocol: Document 10/06/18 17:35 EA (Rec: 10/07/18 11:10 EA [email or web address]) Hip Strength Hip Manual Muscle Testing Right Flexion (L2) 4 Good Extension (S1) 4 Good Abduction 4- Good- External Rotation 3+ Fair+ Internal Rotation 3+ Fair+ Left Flexion (L2) 4 Good Extension (S1) 4 Good Abduction 4 Good Adduction 4 Good External Rotation 3+ Fair+ Internal Rotation 3+ Fair+ Knee Strength Knee Manual Muscle Testing Left Reason Not Measured WFL Right Reason Not Measured WFL Ankle/Foot Strength Ankle and Foot Manual Muscle Testing Right Dorsiflexion (L4) 3 Fair Plantarflexion (S1) 3+ Fair+ Inversion 3 Fair Eversion (S1) 3 Fair Left Reason Not Measured WFL Toe Strength Toe Manual Muscle Testing Right Great Toe Flexion 4- Good- PT-OP-Q Treatments Start: 10/06/18 13:40 Freq: Status: Active Protocol: Document 10/22/18 15:26 SA (Rec: 10/22/18 15:32 SA [email or web address]) Therapeutic Exercises Sitting Exercises 3 way ankle Sitting Exercise Name inv, ever, DF Side right Resistance L1 band Reps/Minutes 15x each Comments fatigue ABCs- ankle AROM Side right Comments 2 reps towel scrunches Side right Reps/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/Minutes x3 min ankle inversion, eversion, DF isometrics Side right Reps/Minutes 2x10 Comments 5-8 sec hold each Standing Exercises HC stretch Side bilateral Equipment Used CARMINA Reps/Minutes 3 min Manual Therapy Treatment Joint Mobilizations talocrural Direction A/P Grade II Body Position Supine Comments right PT-OP-R Modalities Start: 10/06/18 13:40 Freq: Status: Active Protocol: Document 10/22/18 15:32 SA (Rec: 10/22/18 15:32 SA [email or web address]) Hot Pack/Cold Pack Treatment Cold Pack Location L ankle Patient Position Hooklying Treatment Duration (minutes) 10 Patient Tolerance Good PT-OP-T Assessment and Plan Start: 10/06/18 13:40 Freq: Status: Active Protocol: Document 10/22/18 15:26 SA (Rec: 10/22/18 15:32 [email or web address]) Physical Therapy Assessment Assessment Summary Assessment Pt doing HEP about every other day, gait training with SPC and pt still has lateral wobbling gait with use of cane and tends to be distracted by sequencing. Encouraged use of AFO to prevent foot drop and reuce risk of falls. Physical Therapy Plan Next Visit Focus/Plan Next Note Type Treatment Note Next Visit Plan tandem stance vs SL balance when able, cont R ankle stabilization
--- NOTE | 2018-11-05 15:36 | PT.OTN ---
Current Diagnoses Pain in right ankle and joints of right foot (11/05/18) Displaced fracture of lateral malleolus of left fibula, subsequent encounter for closed fracture with routine healing (11/05/18) Sprain of unspecified ligament of left ankle, subsequent encounter (11/05/18) Physical Therapy Treatment Note PT-OP-A Visit Information Start: 10/06/18 13:40 Freq: Status: Active Protocol: Document 11/05/18 15:26 SA (Rec: 11/05/18 15:36 SA [email or web address]) Out-Patient Physical Therapy Visit Information Visit Information Visit Type Treatment Note Visit Start Time 13:00 Visit Stop Time 13:48 Visit Number 4 Number of DRAMATIC AGENT Visits 2 PT-OP-B Current Condition Start: 10/06/18 13:40 Freq: Status: Active Protocol: Document 10/06/18 14:45 EA (Rec: 10/06/18 15:17 EA [id number]) Current Condition History of Current Condition Onset Date 07/17/2018 Current Complaints s/p right ankle sprain History of Current Condition Patient is a poor historian: Patient reports she tripped and fell at home and twisted her right ankle on July 17, 2018. Patient then went [facility] on the same day and given pain meds and was on boot upon discharged. She stated saw her specialist and referred to PT and discharged using foot immobilzer two weeks ago. Medical reports identified and on September 30, 2018 that she underwent multiple joints diagnostic imaging with no significant fracture identified except with avulsion fracture at the base of the right big toe but requires further imaging. Patient is currently ambulating with no AD and states she has ankle brace but does not like to use it. Medical reports from patient clinic stated that she is clear for weight bearing as tolerated with the use of ankle brace and they are aware that patient is not compliant with recommended WB and AD. Prior Treatments and Tests Pain Medication, on a foot immobilizer until two weeks ago from todays date. Future Testing and Treatments Planned She will see her clerical specialist on the second week of October/2018 for follow up. Treatment Goals Patient/Caregiver Goals Patient would like to increase right foot strength to improve walking. Prior Functional Status Baseline Function- ADL's Independent Baseline Function- Mobility Independent Baseline Function- Gait Gait difficulty due to right foot dropped with ability to walk > a block. Baseline Function- Work/School Patient is not currently working and is not on disability. Baseline Function- Other Patient able to perform light activities at home and she got help from her boyfriend and mother with heavy house chores . Current Functional Impairments (Reported) Functional Limitations- ADL's Unable to perform full house hold chores; laundry, outdoor errands and heavy tasks at home requires assistance. Personal care performed with difficulty Functional Limitations- Mobility/Gait Indep with out the use of AD in less than a block Functional Limitations- Work/School Not currently working Functional Limitations- Recreation/ Unable to do Hobbies Personal Factors Other Personal Factors That May Effect History of low back surgery, Therapy/Recovery Depression, 2 falls in the last 6 months with significant injury on last fall, Liver disease, seizure with last episode happen a year ago. PT-OP-C Subjective Start: 10/06/18 13:40 Freq: Status: Active Protocol: Document 11/05/18 15:26 SA (Rec: 11/05/18 15:36 SA [id number]) OP-PT Subjective Patient Comments Patient Comments Pt presents in clinic with B foot/LE swelling. States her trip went well but she had swollen feet the entire time. PT-OP-D Balance Start: 10/06/18 13:40 Freq: Status: Active Protocol: Document 10/06/18 17:35 EA (Rec: 10/07/18 11:10 EA [id number]) OP-PT Balance Assessment Sitting Balance Static Sitting Balance Ability Normal Dynamic Sitting Balance Ability Normal Standing Balance Static Standing Balance Ability Good Dynamic Standing Balance Ability Fair Balance Tests Functional Reach Functional Reach Test 9 Functional Reach Impairment Rating 1 to <20% Impaired (Score 9) Single Limb Standing Single Limb- Right unable Single Limb- Left unable Semi-Tandem Standing Semi-Tandem Standing Balance Requires assist to position and last < 2 second Tandem Tandem Standing Unable Du Fall Scale Copyright Permission PT-OP-F Manual Assessment Start: 10/06/18 13:40 Freq: Status: Active Protocol: Document 10/06/18 17:35 EA (Rec: 10/07/18 11:10 EA [id number]) Manual Assessments Soft Tissue Assessment Soft Tissue Mobility Assessment Tightness to calf muscles, hip rotators, quads, hamstrings Joint Mobility Assessment Joint Mobility Assessment Normal TC joint mobility PT-OP-G Mobility & Gait Start: 10/06/18 13:40 Freq: Status: Active Protocol: Document 10/06/18 17:35 EA (Rec: 10/07/18 11:10 EA [id number]) OP Mobility Evaluation Bed Mobility Rolling Minimal difficulty but indep Supine to and from Sit Moderate difficulty but indep Transfers Sit to Stand Indep Bed to Chair Transfers indep Functional Movements Lifting and Carrying Indep Squats 45 deg Running Assessment unable OP Gait Assessment Gait Gait Assistance Required: Independent Able to Maintain Weight Bearing Status Yes During Gait Assistive Devices Assistive Device None Gait Deviations General Gait Pattern Antalgic Decreased Feet Clearance Wide Based Gait Comments Gait Comments Patient exhibits steppage gait with decreased WB to RLE Stair Climbing Evaluation Evaluation Level of Assist On Stairs Independent Devices Stair Climbing Assistive Devices Left Railing Right Railing Technique/Endurance Stair Climbing Direction Ascend and Descend Stair Climbing Technique Step to Step Number of Steps Climbed 12 Comments Stair Climbing Comments slow w/ step to step gait with the use of both HR PT-OP-J Posture/Palpation/Skin Start: 10/06/18 13:40 Freq: Status: Active Protocol: Document 10/06/18 17:35 EA (Rec: 10/07/18 11:10 EA [id number]) Posture Evaluation Comments Posture Comments Rounded shoulder with increased lumbar curves and slight hip flex (fair posture) Palpation Assessment Location One Palpation Location ant. mid TC joint, base of 1st metatarsal joint Palpation Findings Tenderness Palpation Details Grade 2/4 tenderness Skin Assessment Circumference Measurement 1 Location mid TC joint Comments L=26 ; R=28 (slight right angle swelling but no signs of edema) PT-OP-K Range of Motion Start: 10/06/18 13:40 Freq: Status: Active Protocol: Document 10/06/18 17:35 EA (Rec: 10/07/18 11:10 EA [id number]) Shoulder Goniometric Range of Motion Shoulder ROM Limitations Shoulder ROM Limitations Soft Tissue Tightness Muscle Weakness Comments Impaired left shoulder function with a history of shoulder surgery. Hip Goniometric Range of Motion Hip Left Active Flexion w/Knee Flexed 90 Extension 15 Internal Rotation 25 External Rotation 20 Right Active Flexion w/Knee Flexed 90 Extension 15 Abduction 45 Internal Rotation 25 External Rotation 15 Hip ROM Limitations Hip ROM Limitations Soft Tissue Tightness Knee Goniometric Range of Motion Knee Right Knee ROM WFL Yes Ankle and Foot Goniometric Range of Motion Ankle and Foot Right Active Dorsiflexion with Knee Flexed 10 Plantarflexion 45 Inversion 30 Eversion 20 Left Active Ankle/Foot ROM WFL Yes Dorsiflexion with Knee Flexed 20 Plantarflexion 45 Inversion 35 Eversion 25 PT-OP-L Special Tests Start: 10/06/18 13:40 Freq: Status: Active Protocol: Document 10/06/18 17:35 EA (Rec: 10/07/18 11:10 EA [id number]) Special Tests Foot/Ankle Special Tests Talor Tilt Test Results - PT-OP-M Strength Start: 10/06/18 13:40 Freq: Status: Active Protocol: Document 10/06/18 17:35 EA (Rec: 10/07/18 11:10 EA [id number]) Hip Strength Hip Manual Muscle Testing Right Flexion (L2) 4 Good Extension (S1) 4 Good Abduction 4- Good- External Rotation 3+ Fair+ Internal Rotation 3+ Fair+ Left Flexion (L2) 4 Good Extension (S1) 4 Good Abduction 4 Good Adduction 4 Good External Rotation 3+ Fair+ Internal Rotation 3+ Fair+ Knee Strength Knee Manual Muscle Testing Left Reason Not Measured WFL Right Reason Not Measured WFL Ankle/Foot Strength Ankle and Foot Manual Muscle Testing Right Dorsiflexion (L4) 3 Fair Plantarflexion (S1) 3+ Fair+ Inversion 3 Fair Eversion (S1) 3 Fair Left Reason Not Measured WFL Toe Strength Toe Manual Muscle Testing Right Great Toe Flexion 4- Good- PT-OP-Q Treatments Start: 10/06/18 13:40 Freq: Status: Active Protocol: Document 11/05/18 15:26 SA (Rec: 11/05/18 15:36 SA [email or web address]) Therapeutic Exercises Sitting Exercises 3 way ankle Sitting Exercise Name inv, ever, DF Side right Resistance manual resistance Reps/Minutes 15x each Comments fatigue ABCs- ankle AROM Side right Comments 2 reps towel scrunches Side right Reps/Minutes x30 marble last picker Side right Reps/Minutes x3 min ankle inversion, eversion, DF isometrics Side right Reps/Minutes 2x10 Comments 5-8 sec hold each Standing Exercises SLS Side bilateral Equipment Used at bar Reps/Minutes 3 x 5 Comments UE support HC stretch Side bilateral Equipment Used CARMINA Reps/Minutes 3 min Manual Therapy Treatment Soft Tissue Mobilization STM/Edema management Body Location B feet/calves Mobilization Type Manual Lymphatic Drainage Rolling Intensity/Depth Moderate Body Position Hooklying Joint Mobilizations talocrural Direction A/P Grade II Body Position Supine Comments right PT-OP-R Modalities Start: 10/06/18 13:40 Freq: Status: Active Protocol: Document 11/05/18 15:26 SA (Rec: 11/05/18 15:36 SA [email or web address]) Hot Pack/Cold Pack Treatment Cold Pack Location R ankle Patient Position Hooklying Treatment Duration (minutes) 10 Patient Tolerance Good Comments Feet elvated PT-OP-T Assessment and Plan Start: 10/06/18 13:40 Freq: Status: Active Protocol: Document 11/05/18 15:26 SA (Rec: 11/05/18 15:36 [email or web address]) Physical Therapy Assessment Assessment Summary Assessment Pt inconsistent with HEP, education regarding increasing activity, walking ect and diet changes to help manage LE edema. Pt plans to elevate LEs more and spend less time with LEs dependent as she did while on vacation. Physical Therapy Plan Next Visit Focus/Plan Next Note Type Treatment Note Next Visit Plan Follow up with edema mngt education, performance of HEP and progress ankle stability program.
--- NOTE | 2018-11-09 16:33 | PT.OTN ---
Current Diagnoses Pain in right ankle and joints of right foot (11/09/18) Displaced fracture of lateral malleolus of left fibula, subsequent encounter for closed fracture with routine healing (11/09/18) Sprain of unspecified ligament of left ankle, subsequent encounter (11/09/18) Physical Therapy Treatment Note PT-OP-A Visit Information Start: 10/06/18 13:40 Freq: Status: Active Protocol: Document 11/09/18 16:25 SAK (Rec: 11/09/18 16:33 SAK [id number]) Out-Patient Physical Therapy Visit Information Visit Information Visit Type Treatment Note Visit Start Time 13:00 Visit Stop Time 13:48 Total Visit Minutes 55 Visit Number 5 Number of CLINICAL PROJECT ASSISTANT Visits 0 PT-OP-B Current Condition Start: 10/06/18 13:40 Freq: Status: Active Protocol: Document 10/06/18 14:45 EA (Rec: 10/06/18 15:17 EA [id number]) Current Condition History of Current Condition Onset Date 07/17/2018 Current Complaints s/p right ankle sprain History of Current Condition Patient is a poor historian: Patient reports she tripped and fell at home and twisted her right ankle on July 17, 2018. Patient then went to [facility] on the same day and given pain meds and was on boot upon discharged. She stated saw her specialist and referred to PT and discharged using foot immobilzer two weeks ago. Medical reports identified and on September 30, 2018 that she underwent multiple joints diagnostic imaging with no significant fracture identified except with avulsion fracture at the base of the right big toe but requires further imaging. Patient is currently ambulating with no AD and states she has ankle brace but does not like to use it. Medical reports from patient clinic stated that she is clear for weight bearing as tolerated with the use of ankle brace and they are aware that patient is not compliant with recommended WB and AD. Prior Treatments and Tests Pain Medication, on a foot immobilizer until two weeks ago from todays date. Future Testing and Treatments Planned She will see her urban gardening specialist on the second week of October/2018 for follow up. Treatment Goals Patient/Caregiver Goals Patient would like to increase right foot strength to improve walking. Prior Functional Status Baseline Function- ADL's Independent Baseline Function- Mobility Independent Baseline Function- Gait Gait difficulty due to right foot dropped with ability to walk > a block. Baseline Function- Work/School Patient is not currently working and is not on disability. Baseline Function- Other Patient able to perform light activities at home and she got help from her boyfriend and mother with heavy house chores . Current Functional Impairments (Reported) Functional Limitations- ADL's Unable to perform full house hold chores; laundry, outdoor errands and heavy tasks at home requires assistance. Personal care performed with difficulty Functional Limitations- Mobility/Gait Indep with out the use of AD in less than a block Functional Limitations- Work/School Not currently working Functional Limitations- Recreation/ Unable to do Hobbies Personal Factors Other Personal Factors That May Effect History of low back surgery, Therapy/Recovery Depression, 2 falls in the last 6 months with significant injury on last fall, Liver disease, seizure with last episode happen a year ago. PT-OP-C Subjective Start: 10/06/18 13:40 Freq: Status: Active Protocol: Document 11/09/18 16:25 SAK (Rec: 11/09/18 16:33 SAK [id number]) OP-PT Subjective Patient Comments Patient Comments Swelling improved though persists. Patient reports she can't find compression stockings when recommended, though states she doesn't know if they would fit due to her weight gain. Elevating LE's in recliner but no above heart . Not walking much because I have a cane but don't know how to use it right. PT-OP-D Balance Start: 10/06/18 13:40 Freq: Status: Active Protocol: Document 10/06/18 17:35 EA (Rec: 10/07/18 11:10 EA [id number]) OP-PT Balance Assessment Sitting Balance Static Sitting Balance Ability Normal Dynamic Sitting Balance Ability Normal Standing Balance Static Standing Balance Ability Good Dynamic Standing Balance Ability Fair Balance Tests Functional Reach Functional Reach Test 9 Functional Reach Impairment Rating 1 to <20% Impaired (Score 9) Single Limb Standing Single Limb- Right unable Single Limb- Left unable Semi-Tandem Standing Semi-Tandem Standing Balance Requires assist to position and last < 2 second Tandem Tandem Standing Unable Du Fall Scale Copyright Permission PT-OP-F Manual Assessment Start: 10/06/18 13:40 Freq: Status: Active Protocol: Document 10/06/18 17:35 EA (Rec: 10/07/18 11:10 EA [id number]) Manual Assessments Soft Tissue Assessment Soft Tissue Mobility Assessment Tightness to calf muscles, hip rotators, quads, hamstrings Joint Mobility Assessment Joint Mobility Assessment Normal TC joint mobility PT-OP-G Mobility & Gait Start: 10/06/18 13:40 Freq: Status: Active Protocol: Document 10/06/18 17:35 EA (Rec: 10/07/18 11:10 EA [id number]) OP Mobility Evaluation Bed Mobility Rolling Minimal difficulty but indep Supine to and from Sit Moderate difficulty but indep Transfers Sit to Stand Indep Bed to Chair Transfers indep Functional Movements Lifting and Carrying Indep Squats 45 deg Running Assessment unable OP Gait Assessment Gait Gait Assistance Required: Independent Able to Maintain Weight Bearing Status Yes During Gait Assistive Devices Assistive Device None Gait Deviations General Gait Pattern Antalgic Decreased Feet Clearance Wide Based Gait Comments Gait Comments Patient exhibits steppage gait with decreased WB to RLE Stair Climbing Evaluation Evaluation Level of Assist On Stairs Independent Devices Stair Climbing Assistive Devices Left Railing Right Railing Technique/Endurance Stair Climbing Direction Ascend and Descend Stair Climbing Technique Step to Step Number of Steps Climbed 12 Comments Stair Climbing Comments slow w/ step to step gait with the use of both HR PT-OP-J Posture/Palpation/Skin Start: 10/06/18 13:40 Freq: Status: Active Protocol: Document 10/06/18 17:35 EA (Rec: 10/07/18 11:10 EA [id number]) Posture Evaluation Comments Posture Comments Rounded shoulder with increased lumbar curves and slight hip flex (fair posture) Palpation Assessment Location One Palpation Location ant. mid TC joint, base of 1st metatarsal joint Palpation Findings Tenderness Palpation Details Grade 2/4 tenderness Skin Assessment Circumference Measurement 1 Location mid TC joint Comments L=26 ; R=28 (slight right angle swelling but no signs of edema) PT-OP-K Range of Motion Start: 10/06/18 13:40 Freq: Status: Active Protocol: Document 10/06/18 17:35 EA (Rec: 10/07/18 11:10 EA [id number]) Shoulder Goniometric Range of Motion Shoulder ROM Limitations Shoulder ROM Limitations Soft Tissue Tightness Muscle Weakness Comments Impaired left shoulder function with a history of shoulder surgery. Hip Goniometric Range of Motion Hip Left Active Flexion w/Knee Flexed 90 Extension 15 Internal Rotation 25 External Rotation 20 Right Active Flexion w/Knee Flexed 90 Extension 15 Abduction 45 Internal Rotation 25 External Rotation 15 Hip ROM Limitations Hip ROM Limitations Soft Tissue Tightness Knee Goniometric Range of Motion Knee Right Knee ROM WFL Yes Ankle and Foot Goniometric Range of Motion Ankle and Foot Right Active Dorsiflexion with Knee Flexed 10 Plantarflexion 45 Inversion 30 Eversion 20 Left Active Ankle/Foot ROM WFL Yes Dorsiflexion with Knee Flexed 20 Plantarflexion 45 Inversion 35 Eversion 25 PT-OP-L Special Tests Start: 10/06/18 13:40 Freq: Status: Active Protocol: Document 10/06/18 17:35 EA (Rec: 10/07/18 11:10 EA [id number]) Special Tests Foot/Ankle Special Tests Talor Tilt Test Results - PT-OP-M Strength Start: 10/06/18 13:40 Freq: Status: Active Protocol: Document 10/06/18 17:35 EA (Rec: 10/07/18 11:10 EA [id number]) Hip Strength Hip Manual Muscle Testing Right Flexion (L2) 4 Good Extension (S1) 4 Good Abduction 4- Good- External Rotation 3+ Fair+ Internal Rotation 3+ Fair+ Left Flexion (L2) 4 Good Extension (S1) 4 Good Abduction 4 Good Adduction 4 Good External Rotation 3+ Fair+ Internal Rotation 3+ Fair+ Knee Strength Knee Manual Muscle Testing Left Reason Not Measured WFL Right Reason Not Measured WFL Ankle/Foot Strength Ankle and Foot Manual Muscle Testing Right Dorsiflexion (L4) 3 Fair Plantarflexion (S1) 3+ Fair+ Inversion 3 Fair Eversion (S1) 3 Fair Left Reason Not Measured WFL Toe Strength Toe Manual Muscle Testing Right Great Toe Flexion 4- Good- PT-OP-Q Treatments Start: 10/06/18 13:40 Freq: Status: Active Protocol: Document 11/09/18 16:25 SAK (Rec: 11/09/18 16:33 SAK [id number]) Cardio Equipment Recumbent Elliptical (Biodex) Duration (Minutes) 6 Resistance 1 Seat Position 7 Other LE's only last 2 minutes Therapeutic Exercises Sitting Exercises 3 way ankle Sitting Exercise Name inv, ever, DF Side right Resistance L1 TB Reps/Minutes 15x each Comments fatigue ABCs- ankle AROM Comments HEP towel scrunches Comments HEP marble pickling tank operator Reps/Minutes 12x2 Standing Exercises foam stand Comments green foam EO/EC, blue foam EO tandem stand Reps/Minutes 2 min SLS Side bilateral Equipment Used at bar Reps/Minutes 3 x 5 Comments UE support HC stretch Side bilateral Equipment Used CARMINA Reps/Minutes 3 min Gait Training Gait Activity straight cane Device Used cane Level of Assistance level Surface verbal cues and demonstration Comments demonstrated good understanding Manual Therapy Treatment Soft Tissue Mobilization STM/Edema management Body Location right feet/calves Mobilization Type Manual Lymphatic Drainage Rolling Intensity/Depth Moderate Body Position Hooklying Joint Mobilizations talocrural Direction A/P Grade II Body Position Supine Comments right PT-OP-R Modalities Start: 10/06/18 13:40 Freq: Status: Active Protocol: Document 11/09/18 16:25 SAK (Rec: 11/09/18 16:33 [facility] [id number]) Hot Pack/Cold Pack Treatment Cold Pack Location R ankle ([id number]) Patient Position Hooklying Treatment Duration (minutes) 10 Patient Tolerance Good Comments LE's elevated above heart on bolster and wedge PT-OP-T Assessment and Plan Start: 10/06/18 13:40 Freq: Status: Active Protocol: Document 11/09/18 16:25 SAK (Rec: 11/09/18 16:33 [facility] [id number]) Physical Therapy Assessment Assessment Summary Assessment Patient requires problem solving assistance and encouragement to address her edema, improve HEP and walking compliance. Decreased lateral sway with gait with straight cane after instruction. Physical Therapy Plan Frequency and Duration Frequency of Treatment 2x/Week Duration of Treatment 10 WKS Plan of Care Start Date 10/06/18 Plan of Care End Date 12/15/18 Therapeutic Interventions Therapeutic Interventions Balance Training Gait Training Home Exercise Program Joint Mobilizations Manual Therapy Neuromuscular Re-education Patient/Caregiver Education Self-Care/Home Management Soft Tissue Mobilization Taping Therapeutic Exercises Modalities Cold Pack/Ice Massage Electric Stimulation Next Visit Focus/Plan Next Note Type Treatment Note Next Visit Plan Review gait with cane, progress ther ex for ankle strengthening and stabilization. Edema management.
--- NOTE | 2018-11-12 15:54 | PT.OTN ---
Current Diagnoses Pain in right ankle and joints of right foot (11/12/18) Displaced fracture of lateral malleolus of left fibula, subsequent encounter for closed fracture with routine healing (11/12/18) Sprain of unspecified ligament of left ankle, subsequent encounter (11/12/18) Physical Therapy Treatment Note PT-OP-A Visit Information Start: 10/06/18 13:40 Freq: Status: Active Protocol: Document 11/12/18 15:46 SA (Rec: 11/12/18 15:54 SA [email or web address]) Out-Patient Physical Therapy Visit Information Visit Information Visit Type Treatment Note Visit Start Time 14:30 Visit Stop Time 15:20 Visit Number 6 Number of QUALITY CHECKER Visits 1 PT-OP-B Current Condition Start: 10/06/18 13:40 Freq: Status: Active Protocol: Document 10/06/18 14:45 EA (Rec: 10/06/18 15:17 EA [id number]) Current Condition History of Current Condition Onset Date 07/17/2018 Current Complaints s/p right ankle sprain History of Current Condition Patient is a poor historian: Patient reports she tripped and fell at home and twisted her right ankle on July 17, 2018. Patient then went [facility] same day and given pain meds and was on boot upon discharged. She stated saw her specialist and referred to PT and discharged using foot immobilzer two weeks ago. Medical reports identified and on September 30, 2018 that she underwent multiple joints diagnostic imaging with no significant fracture identified except with avulsion fracture at the base of the right big toe but requires further imaging. Patient is currently ambulating with no AD and states she has ankle brace but does not like to use it. Medical reports from patient clinic stated that she is clear for weight bearing as tolerated with the use of ankle brace and they are aware that patient is not compliant with recommended WB and AD. Prior Treatments and Tests Pain Medication, on a foot immobilizer until two weeks ago from todays date. Future Testing and Treatments Planned She will see her customer contact specialist on the second week of October/2018 for follow up. Treatment Goals Patient/Caregiver Goals Patient would like to increase right foot strength to improve walking. Prior Functional Status Baseline Function- ADL's Independent Baseline Function- Mobility Independent Baseline Function- Gait Gait difficulty due to right foot dropped with ability to walk > a block. Baseline Function- Work/School Patient is not currently working and is not on disability. Baseline Function- Other Patient able to perform light activities at home and she got help from her boyfriend and mother with heavy house chores . Current Functional Impairments (Reported) Functional Limitations- ADL's Unable to perform full house hold chores; laundry, outdoor errands and heavy tasks at home requires assistance. Personal care performed with difficulty Functional Limitations- Mobility/Gait Indep with out the use of AD in less than a block Functional Limitations- Work/School Not currently working Functional Limitations- Recreation/ Unable to do Hobbies Personal Factors Other Personal Factors That May Effect History of low back surgery, Therapy/Recovery Depression, 2 falls in the last 6 months with significant injury on last fall, Liver disease, seizure with last episode happen a year ago. PT-OP-C Subjective Start: 10/06/18 13:40 Freq: Status: Active Protocol: Document 11/12/18 15:46 SA (Rec: 11/12/18 15:54 SA [email or web address]) OP-PT Subjective Patient Comments Patient Comments Pt reports she is unable to perform 3-way ankle strengthening b/c she cannot attatch it to table leg every time and she is unable to leave attetched d/t living situation. Patient Reported Progress Same PT-OP-D Balance Start: 10/06/18 13:40 Freq: Status: Active Protocol: Document 10/06/18 17:35 EA (Rec: 10/07/18 11:10 EA [id number]) OP-PT Balance Assessment Sitting Balance Static Sitting Balance Ability Normal Dynamic Sitting Balance Ability Normal Standing Balance Static Standing Balance Ability Good Dynamic Standing Balance Ability Fair Balance Tests Functional Reach Functional Reach Test 9 Functional Reach Impairment Rating 1 to <20% Impaired (Score 9) Single Limb Standing Single Limb- Right unable Single Limb- Left unable Semi-Tandem Standing Semi-Tandem Standing Balance Requires assist to position and last < 2 second Tandem Tandem Standing Unable Du Fall Scale Copyright Permission PT-OP-F Manual Assessment Start: 10/06/18 13:40 Freq: Status: Active Protocol: Document 10/06/18 17:35 EA (Rec: 10/07/18 11:10 EA [id number]) Manual Assessments Soft Tissue Assessment Soft Tissue Mobility Assessment Tightness to calf muscles, hip rotators, quads, hamstrings Joint Mobility Assessment Joint Mobility Assessment Normal TC joint mobility PT-OP-G Mobility & Gait Start: 10/06/18 13:40 Freq: Status: Active Protocol: Document 10/06/18 17:35 EA (Rec: 10/07/18 11:10 EA [id number]) OP Mobility Evaluation Bed Mobility Rolling Minimal difficulty but indep Supine to and from Sit Moderate difficulty but indep Transfers Sit to Stand Indep Bed to Chair Transfers indep Functional Movements Lifting and Carrying Indep Squats 45 deg Running Assessment unable OP Gait Assessment Gait Gait Assistance Required: Independent Able to Maintain Weight Bearing Status Yes During Gait Assistive Devices Assistive Device None Gait Deviations General Gait Pattern Antalgic Decreased Feet Clearance Wide Based Gait Comments Gait Comments Patient exhibits steppage gait with decreased WB to RLE Stair Climbing Evaluation Evaluation Level of Assist On Stairs Independent Devices Stair Climbing Assistive Devices Left Railing Right Railing Technique/Endurance Stair Climbing Direction Ascend and Descend Stair Climbing Technique Step to Step Number of Steps Climbed 12 Comments Stair Climbing Comments slow w/ step to step gait with the use of both HR PT-OP-J Posture/Palpation/Skin Start: 10/06/18 13:40 Freq: Status: Active Protocol: Document 10/06/18 17:35 EA (Rec: 10/07/18 11:10 EA [id number]) Posture Evaluation Comments Posture Comments Rounded shoulder with increased lumbar curves and slight hip flex (fair posture) Palpation Assessment Location One Palpation Location ant. mid TC joint, base of 1st metatarsal joint Palpation Findings Tenderness Palpation Details Grade 2/4 tenderness Skin Assessment Circumference Measurement 1 Location mid TC joint Comments L=26 ; R=28 (slight right angle swelling but no signs of edema) PT-OP-K Range of Motion Start: 10/06/18 13:40 Freq: Status: Active Protocol: Document 10/06/18 17:35 EA (Rec: 10/07/18 11:10 EA [id number]) Shoulder Goniometric Range of Motion Shoulder ROM Limitations Shoulder ROM Limitations Soft Tissue Tightness Muscle Weakness Comments Impaired left shoulder function with a history of shoulder surgery. Hip Goniometric Range of Motion Hip Left Active Flexion w/Knee Flexed 90 Extension 15 Internal Rotation 25 External Rotation 20 Right Active Flexion w/Knee Flexed 90 Extension 15 Abduction 45 Internal Rotation 25 External Rotation 15 Hip ROM Limitations Hip ROM Limitations Soft Tissue Tightness Knee Goniometric Range of Motion Knee Right Knee ROM WFL Yes Ankle and Foot Goniometric Range of Motion Ankle and Foot Right Active Dorsiflexion with Knee Flexed 10 Plantarflexion 45 Inversion 30 Eversion 20 Left Active Ankle/Foot ROM WFL Yes Dorsiflexion with Knee Flexed 20 Plantarflexion 45 Inversion 35 Eversion 25 PT-OP-L Special Tests Start: 10/06/18 13:40 Freq: Status: Active Protocol: Document 10/06/18 17:35 EA (Rec: 10/07/18 11:10 EA [id number]) Special Tests Foot/Ankle Special Tests Talor Tilt Test Results - PT-OP-M Strength Start: 10/06/18 13:40 Freq: Status: Active Protocol: Document 10/06/18 17:35 EA (Rec: 10/07/18 11:10 EA [id number]) Hip Strength Hip Manual Muscle Testing Right Flexion (L2) 4 Good Extension (S1) 4 Good Abduction 4- Good- External Rotation 3+ Fair+ Internal Rotation 3+ Fair+ Left Flexion (L2) 4 Good Extension (S1) 4 Good Abduction 4 Good Adduction 4 Good External Rotation 3+ Fair+ Internal Rotation 3+ Fair+ Knee Strength Knee Manual Muscle Testing Left Reason Not Measured WFL Right Reason Not Measured WFL Ankle/Foot Strength Ankle and Foot Manual Muscle Testing Right Dorsiflexion (L4) 3 Fair Plantarflexion (S1) 3+ Fair+ Inversion 3 Fair Eversion (S1) 3 Fair Left Reason Not Measured WFL Toe Strength Toe Manual Muscle Testing Right Great Toe Flexion 4- Good- PT-OP-Q Treatments Start: 10/06/18 13:40 Freq: Status: Active Protocol: Document 11/12/18 15:46 SA (Rec: 11/12/18 15:54 SA [email or web address]) Cardio Equipment Recumbent Elliptical (Biodex) Duration (Minutes) 6 Resistance 2 Seat Position 7 Other LE's only last 2 minutes Gym Equipment Shuttle Balance Red Details N/W ANDRY, tandem Reps/Duration 5 min Comments weight shifting Therapeutic Exercises Sitting Exercises 3 way ankle Sitting Exercise Name inv, ever, DF Side right Resistance L1 TB Reps/Minutes 20x each Comments fatigue ABCs- ankle AROM Comments HEP Standing Exercises tandem stand Reps/Minutes 2 min SLS Side bilateral Equipment Used at bar Reps/Minutes 3 x 5 Comments UE support HC stretch Side bilateral Equipment Used CARMINA Reps/Minutes 3 min Manual Therapy Treatment Soft Tissue Mobilization STM/Edema management Body Location right feet/calves Mobilization Type Manual Lymphatic Drainage Rolling Intensity/Depth Moderate Body Position Hooklying Joint Mobilizations talocrural Direction A/P Grade II Body Position Supine Comments right PT-OP-R Modalities Start: 10/06/18 13:40 Freq: Status: Active Protocol: Document 11/12/18 15:46 SA (Rec: 11/12/18 15:54 SA [email or web address]) Hot Pack/Cold Pack Treatment Cold Pack Location R ankle (CRYOCUFF) Patient Position Hooklying Patient Tolerance Good Comments LE's elevated above heart on bolster and wedge PT-OP-T Assessment and Plan Start: 10/06/18 13:40 Freq: Status: Active Protocol: Document 11/12/18 15:46 SA (Rec: 11/12/18 15:54 [email or web address]) Physical Therapy Assessment Assessment Summary Assessment Decreasing BLE edema, problem solved to have boyfriend assist her with HEP, discussed use of AFO and/or SPC to increase walking and daily activity with less fear of falling. Physical Therapy Plan Next Visit Focus/Plan Next Note Type Treatment Note Next Visit Plan Review gait with cane, progress ther ex for ankle strengthening and stabilization. Edema management.
--- NOTE | 2018-11-16 16:13 | PT.OTN ---
Current Diagnoses Pain in right ankle and joints of right foot (11/16/18) Displaced fracture of lateral malleolus of left fibula, subsequent encounter for closed fracture with routine healing (11/16/18) Sprain of unspecified ligament of left ankle, subsequent encounter (11/16/18) Physical Therapy Treatment Note PT-OP-A Visit Information Start: 10/06/18 13:40 Freq: Status: Active Protocol: Document 11/16/18 15:15 SAK (Rec: 11/16/18 16:10 SAK [id number]) Out-Patient Physical Therapy Visit Information Visit Information Visit Type Treatment Note Visit Start Time 14:30 Visit Stop Time 15:20 Total Visit Minutes 50 Visit Number 7 Number of MUSICAL INSTRUMENT MECHANIC Visits 0 PT-OP-B Current Condition Start: 10/06/18 13:40 Freq: Status: Active Protocol: Document 10/06/18 14:45 EA (Rec: 10/06/18 15:17 EA [id number]) Current Condition History of Current Condition Onset Date 07/17/2018 Current Complaints s/p right ankle sprain History of Current Condition Patient is a poor historian: Patient reports she tripped and fell at home and twisted her right ankle on July 17, 2018. Patient then went [facility] the same day and given pain meds and was on boot upon discharged. She stated saw her specialist and referred to PT and discharged using foot immobilzer two weeks ago. Medical reports identified and on September 30, 2018 that she underwent multiple joints diagnostic imaging with no significant fracture identified except with avulsion fracture at the base of the right big toe but requires further imaging. Patient is currently ambulating with no AD and states she has ankle brace but does not like to use it. Medical reports from patient clinic stated that she is clear for weight bearing as tolerated with the use of ankle brace and they are aware that patient is not compliant with recommended WB and AD. Prior Treatments and Tests Pain Medication, on a foot immobilizer until two weeks ago from todays date. Future Testing and Treatments Planned She will see her mechanical engineering specialist on the second week of October/2018 for follow up. Treatment Goals Patient/Caregiver Goals Patient would like to increase right foot strength to improve walking. Prior Functional Status Baseline Function- ADL's Independent Baseline Function- Mobility Independent Baseline Function- Gait Gait difficulty due to right foot dropped with ability to walk > a block. Baseline Function- Work/School Patient is not currently working and is not on disability. Baseline Function- Other Patient able to perform light activities at home and she got help from her boyfriend and mother with heavy house chores . Current Functional Impairments (Reported) Functional Limitations- ADL's Unable to perform full house hold chores; laundry, outdoor errands and heavy tasks at home requires assistance. Personal care performed with difficulty Functional Limitations- Mobility/Gait Indep with out the use of AD in less than a block Functional Limitations- Work/School Not currently working Functional Limitations- Recreation/ Unable to do Hobbies Personal Factors Other Personal Factors That May Effect History of low back surgery, Therapy/Recovery Depression, 2 falls in the last 6 months with significant injury on last fall, Liver disease, seizure with last episode happen a year ago. PT-OP-C Subjective Start: 10/06/18 13:40 Freq: Status: Active Protocol: Document 11/16/18 15:15 SAK (Rec: 11/16/18 16:13 SAK [id number]) OP-PT Subjective Patient Comments Patient Comments Reports she has been doing her exercises, having boyfriend hold the theraband. Hasn't increased her walking. Mild lateral ankle pain today. PT-OP-D Balance Start: 10/06/18 13:40 Freq: Status: Active Protocol: Document 10/06/18 17:35 EA (Rec: 10/07/18 11:10 EA [id number]) OP-PT Balance Assessment Sitting Balance Static Sitting Balance Ability Normal Dynamic Sitting Balance Ability Normal Standing Balance Static Standing Balance Ability Good Dynamic Standing Balance Ability Fair Balance Tests Functional Reach Functional Reach Test 9 Functional Reach Impairment Rating 1 to <20% Impaired (Score 9) Single Limb Standing Single Limb- Right unable Single Limb- Left unable Semi-Tandem Standing Semi-Tandem Standing Balance Requires assist to position and last < 2 second Tandem Tandem Standing Unable Du Fall Scale Copyright Permission PT-OP-F Manual Assessment Start: 10/06/18 13:40 Freq: Status: Active Protocol: Document 10/06/18 17:35 EA (Rec: 10/07/18 11:10 EA [id number]) Manual Assessments Soft Tissue Assessment Soft Tissue Mobility Assessment Tightness to calf muscles, hip rotators, quads, hamstrings Joint Mobility Assessment Joint Mobility Assessment Normal TC joint mobility PT-OP-G Mobility & Gait Start: 10/06/18 13:40 Freq: Status: Active Protocol: Document 10/06/18 17:35 EA (Rec: 10/07/18 11:10 EA [id number]) OP Mobility Evaluation Bed Mobility Rolling Minimal difficulty but indep Supine to and from Sit Moderate difficulty but indep Transfers Sit to Stand Indep Bed to Chair Transfers indep Functional Movements Lifting and Carrying Indep Squats 45 deg Running Assessment unable OP Gait Assessment Gait Gait Assistance Required: Independent Able to Maintain Weight Bearing Status Yes During Gait Assistive Devices Assistive Device None Gait Deviations General Gait Pattern Antalgic Decreased Feet Clearance Wide Based Gait Comments Gait Comments Patient exhibits steppage gait with decreased WB to RLE Stair Climbing Evaluation Evaluation Level of Assist On Stairs Independent Devices Stair Climbing Assistive Devices Left Railing Right Railing Technique/Endurance Stair Climbing Direction Ascend and Descend Stair Climbing Technique Step to Step Number of Steps Climbed 12 Comments Stair Climbing Comments slow w/ step to step gait with the use of both HR PT-OP-J Posture/Palpation/Skin Start: 10/06/18 13:40 Freq: Status: Active Protocol: Document 10/06/18 17:35 EA (Rec: 10/07/18 11:10 EA [id number]) Posture Evaluation Comments Posture Comments Rounded shoulder with increased lumbar curves and slight hip flex (fair posture) Palpation Assessment Location One Palpation Location ant. mid TC joint, base of 1st metatarsal joint Palpation Findings Tenderness Palpation Details Grade 2/4 tenderness Skin Assessment Circumference Measurement 1 Location mid TC joint Comments L=26 ; R=28 (slight right angle swelling but no signs of edema) PT-OP-K Range of Motion Start: 10/06/18 13:40 Freq: Status: Active Protocol: Document 10/06/18 17:35 EA (Rec: 10/07/18 11:10 EA [id number]) Shoulder Goniometric Range of Motion Shoulder ROM Limitations Shoulder ROM Limitations Soft Tissue Tightness Muscle Weakness Comments Impaired left shoulder function with a history of shoulder surgery. Hip Goniometric Range of Motion Hip Left Active Flexion w/Knee Flexed 90 Extension 15 Internal Rotation 25 External Rotation 20 Right Active Flexion w/Knee Flexed 90 Extension 15 Abduction 45 Internal Rotation 25 External Rotation 15 Hip ROM Limitations Hip ROM Limitations Soft Tissue Tightness Knee Goniometric Range of Motion Knee Right Knee ROM WFL Yes Ankle and Foot Goniometric Range of Motion Ankle and Foot Right Active Dorsiflexion with Knee Flexed 10 Plantarflexion 45 Inversion 30 Eversion 20 Left Active Ankle/Foot ROM WFL Yes Dorsiflexion with Knee Flexed 20 Plantarflexion 45 Inversion 35 Eversion 25 PT-OP-L Special Tests Start: 10/06/18 13:40 Freq: Status: Active Protocol: Document 10/06/18 17:35 EA (Rec: 10/07/18 11:10 EA [id number]) Special Tests Foot/Ankle Special Tests Talor Tilt Test Results - PT-OP-M Strength Start: 10/06/18 13:40 Freq: Status: Active Protocol: Document 10/06/18 17:35 EA (Rec: 10/07/18 11:10 EA [id number]) Hip Strength Hip Manual Muscle Testing Right Flexion (L2) 4 Good Extension (S1) 4 Good Abduction 4- Good- External Rotation 3+ Fair+ Internal Rotation 3+ Fair+ Left Flexion (L2) 4 Good Extension (S1) 4 Good Abduction 4 Good Adduction 4 Good External Rotation 3+ Fair+ Internal Rotation 3+ Fair+ Knee Strength Knee Manual Muscle Testing Left Reason Not Measured WFL Right Reason Not Measured WFL Ankle/Foot Strength Ankle and Foot Manual Muscle Testing Right Dorsiflexion (L4) 3 Fair Plantarflexion (S1) 3+ Fair+ Inversion 3 Fair Eversion (S1) 3 Fair Left Reason Not Measured WFL Toe Strength Toe Manual Muscle Testing Right Great Toe Flexion 4- Good- PT-OP-Q Treatments Start: 10/06/18 13:40 Freq: Status: Active Protocol: Document 11/16/18 15:15 SAK (Rec: 11/16/18 16:10 SAK [id number]) Cardio Equipment Recumbent Elliptical (Biodex) Duration (Minutes) 8 Resistance 2 Seat Position 7 Other LE's only last 4 minutes Gym Equipment Shuttle Balance Red Details N/W ANDRY, tandem Reps/Duration 5 min Comments weight shifting Therapeutic Exercises Sitting Exercises 3 way ankle Sitting Exercise Name inv, ever, DF Side right Resistance L1 TB Reps/Minutes 20x each Comments fatigue Standing Exercises tandem stand Reps/Minutes 2 min SLS Side bilateral Equipment Used at bar Reps/Minutes 3 x 5 Comments UE support HC stretch Side bilateral Equipment Used CARMINA Reps/Minutes 3 min Gait Training Gait Activity straight cane Device Used cane Level of Assistance level Surface verbal cues and demonstration Comments demonstrated good understanding Manual Therapy Treatment Soft Tissue Mobilization STM/Edema management Body Location right feet/calves Mobilization Type Manual Lymphatic Drainage Rolling Intensity/Depth Moderate Body Position Hooklying Joint Mobilizations talocrural Direction A/P Grade II Body Position Supine Comments right PT-OP-R Modalities Start: 10/06/18 13:40 Freq: Status: Active Protocol: Document 11/16/18 15:15 [facility] (Rec: 11/16/18 16:10 [facility] [id number]) Hot Pack/Cold Pack Treatment Cold Pack Location R ankle (CRYOCUFF) Patient Position Hooklying Patient Tolerance Good Comments LE's elevated above heart on bolster and wedge PT-OP-T Assessment and Plan Start: 10/06/18 13:40 Freq: Status: Active Protocol: Document 11/16/18 15:15 [facility] (Rec: 11/16/18 16:10 [facility] [id number]) Physical Therapy Plan Frequency and Duration Frequency of Treatment 2x/Week Duration of Treatment 10 WKS Plan of Care Start Date 10/06/18 Plan of Care End Date 12/15/18 Therapeutic Interventions Therapeutic Interventions Balance Training Gait Training Home Exercise Program Joint Mobilizations Manual Therapy Neuromuscular Re-education Patient/Caregiver Education Self-Care/Home Management Soft Tissue Mobilization Taping Therapeutic Exercises Modalities Cold Pack/Ice Massage Electric Stimulation Next Visit Focus/Plan Next Note Type Treatment Note Next Visit Plan Review gait with cane, progress ther ex for ankle strengthening and stabilization. Edema management.
--- NOTE | 2018-11-18 12:20 | PT.OTN ---
Current Diagnoses Pain in right ankle and joints of right foot (11/18/18) Displaced fracture of lateral malleolus of left fibula, subsequent encounter for closed fracture with routine healing (11/18/18) Sprain of unspecified ligament of left ankle, subsequent encounter (11/18/18) Physical Therapy Treatment Note PT-OP-A Visit Information Start: 10/06/18 13:40 Freq: Status: Active Protocol: Document 11/18/18 11:20 LRN (Rec: 11/18/18 12:19 LRN [id number]) Out-Patient Physical Therapy Visit Information Visit Information Visit Type Treatment Note Visit Start Time 11:20 Visit Stop Time 12:13 Total Visit Minutes 53 Visit Number 8 Number of SOLE SPLITTER Visits 0 Evaluation Information Evaluation Date 10/06/18 PT-OP-B Current Condition Start: 10/06/18 13:40 Freq: Status: Active Protocol: Document 10/06/18 14:45 EA (Rec: 10/06/18 15:17 EA [id number]) Current Condition History of Current Condition Onset Date 07/17/2018 Current Complaints s/p right ankle sprain History of Current Condition Patient is a poor historian: Patient reports she tripped and fell at home and twisted her right ankle on July 17, 2018. Patient then went to [facility] on [facility] same day and given pain meds and was on boot upon discharged. She stated saw her specialist and referred to PT and discharged using foot immobilzer two weeks ago. Medical reports identified and on September 30, 2018 that she underwent multiple joints diagnostic imaging with no significant fracture identified except with avulsion fracture at the base of the right big toe but requires further imaging. Patient is currently ambulating with no AD and states she has ankle brace but does not like to use it. Medical reports from patient clinic stated that she is clear for weight bearing as tolerated with the use of ankle brace and they are aware that patient is not compliant with recommended WB and AD. Prior Treatments and Tests Pain Medication, on a foot immobilizer until two weeks ago from todays date. Future Testing and Treatments Planned She will see her field talent qualification specialist on the second week of October/2018 for follow up. Treatment Goals Patient/Caregiver Goals Patient would like to increase right foot strength to improve walking. Prior Functional Status Baseline Function- ADL's Independent Baseline Function- Mobility Independent Baseline Function- Gait Gait difficulty due to right foot dropped with ability to walk > a block. Baseline Function- Work/School Patient is not currently working and is not on disability. Baseline Function- Other Patient able to perform light activities at home and she got help from her boyfriend and mother with heavy house chores . Current Functional Impairments (Reported) Functional Limitations- ADL's Unable to perform full house hold chores; laundry, outdoor errands and heavy tasks at home requires assistance. Personal care performed with difficulty Functional Limitations- Mobility/Gait Indep with out the use of AD in less than a block Functional Limitations- Work/School Not currently working Functional Limitations- Recreation/ Unable to do Hobbies Personal Factors Other Personal Factors That May Effect History of low back surgery, Therapy/Recovery Depression, 2 falls in the last 6 months with significant injury on last fall, Liver disease, seizure with last episode happen a year ago. PT-OP-C Subjective Start: 10/06/18 13:40 Freq: Status: Active Protocol: Document 11/18/18 11:20 LRN (Rec: 11/18/18 12:19 LRN [id number]) OP-PT Subjective Patient Comments Patient Comments No change since last session. Doesn't hurt today. No problem with HEP, but didn't do them yesterday. PT-OP-D Balance Start: 10/06/18 13:40 Freq: Status: Active Protocol: Document 10/06/18 17:35 EA (Rec: 10/07/18 11:10 EA [id number]) OP-PT Balance Assessment Sitting Balance Static Sitting Balance Ability Normal Dynamic Sitting Balance Ability Normal Standing Balance Static Standing Balance Ability Good Dynamic Standing Balance Ability Fair Balance Tests Functional Reach Functional Reach Test 9 Functional Reach Impairment Rating 1 to <20% Impaired (Score 9) Single Limb Standing Single Limb- Right unable Single Limb- Left unable Semi-Tandem Standing Semi-Tandem Standing Balance Requires assist to position and last < 2 second Tandem Tandem Standing Unable Du Fall Scale Copyright Permission PT-OP-F Manual Assessment Start: 10/06/18 13:40 Freq: Status: Active Protocol: Document 10/06/18 17:35 EA (Rec: 10/07/18 11:10 EA [id number]) Manual Assessments Soft Tissue Assessment Soft Tissue Mobility Assessment Tightness to calf muscles, hip rotators, quads, hamstrings Joint Mobility Assessment Joint Mobility Assessment Normal TC joint mobility PT-OP-G Mobility & Gait Start: 10/06/18 13:40 Freq: Status: Active Protocol: Document 10/06/18 17:35 EA (Rec: 10/07/18 11:10 EA [id number]) OP Mobility Evaluation Bed Mobility Rolling Minimal difficulty but indep Supine to and from Sit Moderate difficulty but indep Transfers Sit to Stand Indep Bed to Chair Transfers indep Functional Movements Lifting and Carrying Indep Squats 45 deg Running Assessment unable OP Gait Assessment Gait Gait Assistance Required: Independent Able to Maintain Weight Bearing Status Yes During Gait Assistive Devices Assistive Device None Gait Deviations General Gait Pattern Antalgic Decreased Feet Clearance Wide Based Gait Comments Gait Comments Patient exhibits steppage gait with decreased WB to RLE Stair Climbing Evaluation Evaluation Level of Assist On Stairs Independent Devices Stair Climbing Assistive Devices Left Railing Right Railing Technique/Endurance Stair Climbing Direction Ascend and Descend Stair Climbing Technique Step to Step Number of Steps Climbed 12 Comments Stair Climbing Comments slow w/ step to step gait with the use of both HR PT-OP-J Posture/Palpation/Skin Start: 10/06/18 13:40 Freq: Status: Active Protocol: Document 10/06/18 17:35 EA (Rec: 10/07/18 11:10 EA [id number]) Posture Evaluation Comments Posture Comments Rounded shoulder with increased lumbar curves and slight hip flex (fair posture) Palpation Assessment Location One Palpation Location ant. mid TC joint, base of 1st metatarsal joint Palpation Findings Tenderness Palpation Details Grade 2/4 tenderness Skin Assessment Circumference Measurement 1 Location mid TC joint Comments L=26 ; R=28 (slight right angle swelling but no signs of edema) PT-OP-K Range of Motion Start: 10/06/18 13:40 Freq: Status: Active Protocol: Document 10/06/18 17:35 EA (Rec: 10/07/18 11:10 EA [id number]) Shoulder Goniometric Range of Motion Shoulder ROM Limitations Shoulder ROM Limitations Soft Tissue Tightness Muscle Weakness Comments Impaired left shoulder function with a history of shoulder surgery. Hip Goniometric Range of Motion Hip Left Active Flexion w/Knee Flexed 90 Extension 15 Internal Rotation 25 External Rotation 20 Right Active Flexion w/Knee Flexed 90 Extension 15 Abduction 45 Internal Rotation 25 External Rotation 15 Hip ROM Limitations Hip ROM Limitations Soft Tissue Tightness Knee Goniometric Range of Motion Knee Right Knee ROM WFL Yes Ankle and Foot Goniometric Range of Motion Ankle and Foot Right Active Dorsiflexion with Knee Flexed 10 Plantarflexion 45 Inversion 30 Eversion 20 Left Active Ankle/Foot ROM WFL Yes Dorsiflexion with Knee Flexed 20 Plantarflexion 45 Inversion 35 Eversion 25 PT-OP-L Special Tests Start: 10/06/18 13:40 Freq: Status: Active Protocol: Document 10/06/18 17:35 EA (Rec: 10/07/18 11:10 EA [id number]) Special Tests Foot/Ankle Special Tests Talor Tilt Test Results - PT-OP-M Strength Start: 10/06/18 13:40 Freq: Status: Active Protocol: Document 10/06/18 17:35 EA (Rec: 10/07/18 11:10 EA [id number]) Hip Strength Hip Manual Muscle Testing Right Flexion (L2) 4 Good Extension (S1) 4 Good Abduction 4- Good- External Rotation 3+ Fair+ Internal Rotation 3+ Fair+ Left Flexion (L2) 4 Good Extension (S1) 4 Good Abduction 4 Good Adduction 4 Good External Rotation 3+ Fair+ Internal Rotation 3+ Fair+ Knee Strength Knee Manual Muscle Testing Left Reason Not Measured WFL Right Reason Not Measured WFL Ankle/Foot Strength Ankle and Foot Manual Muscle Testing Right Dorsiflexion (L4) 3 Fair Plantarflexion (S1) 3+ Fair+ Inversion 3 Fair Eversion (S1) 3 Fair Left Reason Not Measured WFL Toe Strength Toe Manual Muscle Testing Right Great Toe Flexion 4- Good- PT-OP-Q Treatments Start: 10/06/18 13:40 Freq: Status: Active Protocol: Document 11/18/18 11:20 LRN (Rec: 11/18/18 12:19 LRN [id number]) Therapeutic Exercises Sitting Exercises 3 way ankle Sitting Exercise Name inv, ever, DF Side right Resistance L1 TB Reps/Minutes 15x2 each Comments fatigue Standing Exercises tandem stand Reps/Minutes 4 min HC stretch Side bilateral Equipment Used CARMINA Reps/Minutes 3 min Comments f/b isometric ankle DF Gait Training Gait Activity Wgt Shifting Description Motor relearning Device Used // bars Surface firm level Distance/Duration 10 Treatment Focus Wgt shifting R & stepping with the R in proper position. straight cane Description Gait training for correct R LE positioning Device Used cane Level of Assistance level Surface verbal cues and demonstration Distance/Duration 15 Comments Without cane pt waddles due to her holding her RLE in a more ABducted position PT-OP-R Modalities Start: 10/06/18 13:40 Freq: Status: Active Protocol: Document 11/18/18 11:20 LRN (Rec: 11/18/18 12:19 LRN [id number]) Hot Pack/Cold Pack Treatment Cold Pack Location R ankle (CRYOCUFF), CP to L ankle Patient Position Hooklying Patient Tolerance Good Comments LE's elevated above heart on bolster and wedge. PT-OP-T Assessment and Plan Start: 10/06/18 13:40 Freq: Status: Active Protocol: Document 11/18/18 11:20 LRN (Rec: 11/18/18 12:19 LRN [id number]) Physical Therapy Assessment Assessment Summary Assessment Pt tends to walk with her RLE in a more ABducted position. She improved some with gait training. She may have L hip AB weakness causing her to Trendelenburg on the L and land on R with her leg in AB position. Further gait training needed. Physical Therapy Plan Frequency and Duration Frequency of Treatment 2x/Week Duration of Treatment 10 WKS Plan of Care Start Date 10/06/18 Plan of Care End Date 12/15/18 Next Visit Focus/Plan Next Note Type Treatment Note Next Visit Plan Progress ther ex for ankle strengthening and stabilization. Edema management. Add L hip AB strengthening and continue gait training.
--- NOTE | 2018-11-23 16:08 | PT.OTN ---
Current Diagnoses Pain in right ankle and joints of right foot (11/23/18) Displaced fracture of lateral malleolus of left fibula, subsequent encounter for closed fracture with routine healing (11/23/18) Sprain of unspecified ligament of left ankle, subsequent encounter (11/23/18) Physical Therapy Treatment Note PT-OP-A Visit Information Start: 10/06/18 13:40 Freq: Status: Active Protocol: Document 11/23/18 15:18 SAK (Rec: 11/23/18 16:08 SAK [id number]) Out-Patient Physical Therapy Visit Information Visit Information Visit Type Treatment Note Visit Start Time 15:15 Visit Stop Time 16:15 Total Visit Minutes 60 Visit Number 9 Number of CRIME LAB ANALYST Visits 0 Evaluation Information Evaluation Date 10/06/18 PT-OP-B Current Condition Start: 10/06/18 13:40 Freq: Status: Active Protocol: Document 10/06/18 14:45 EA (Rec: 10/06/18 15:17 EA [id number]) Current Condition History of Current Condition Onset Date 07/17/2018 Current Complaints s/p right ankle sprain History of Current Condition Patient is a poor historian: Patient reports she tripped and fell at home and twisted her right ankle on July 17, 2018. Patient then went to [facility] on the same day and given pain meds and was on boot upon discharged. She stated saw her specialist and referred to PT and discharged using foot immobilzer two weeks ago. Medical reports identified and on September 30, 2018 that she underwent multiple joints diagnostic imaging with no significant fracture identified except with avulsion fracture at the base of the right big toe but requires further imaging. Patient is currently ambulating with no AD and states she has ankle brace but does not like to use it. Medical reports from patient clinic stated that she is clear for weight bearing as tolerated with the use of ankle brace and they are aware that patient is not compliant with recommended WB and AD. Prior Treatments and Tests Pain Medication, on a foot immobilizer until two weeks ago from todays date. Future Testing and Treatments Planned She will see her forensic identification specialist on the second week of October/2018 for follow up. Treatment Goals Patient/Caregiver Goals Patient would like to increase right foot strength to improve walking. Prior Functional Status Baseline Function- ADL's Independent Baseline Function- Mobility Independent Baseline Function- Gait Gait difficulty due to right foot dropped with ability to walk > a block. Baseline Function- Work/School Patient is not currently working and is not on disability. Baseline Function- Other Patient able to perform light activities at home and she got help from her boyfriend and mother with heavy house chores . Current Functional Impairments (Reported) Functional Limitations- ADL's Unable to perform full house hold chores; laundry, outdoor errands and heavy tasks at home requires assistance. Personal care performed with difficulty Functional Limitations- Mobility/Gait Indep with out the use of AD in less than a block Functional Limitations- Work/School Not currently working Functional Limitations- Recreation/ Unable to do Hobbies Personal Factors Other Personal Factors That May Effect History of low back surgery, Therapy/Recovery Depression, 2 falls in the last 6 months with significant injury on last fall, Liver disease, seizure with last episode happen a year ago. PT-OP-C Subjective Start: 10/06/18 13:40 Freq: Status: Active Protocol: Document 11/23/18 15:18 SAK (Rec: 11/23/18 16:08 SAK [id number]) OP-PT Subjective Patient Comments Patient Comments Legs tired, did a lot of walking over weekend. PT-OP-D Balance Start: 10/06/18 13:40 Freq: Status: Active Protocol: Document 10/06/18 17:35 EA (Rec: 10/07/18 11:10 EA [id number]) OP-PT Balance Assessment Sitting Balance Static Sitting Balance Ability Normal Dynamic Sitting Balance Ability Normal Standing Balance Static Standing Balance Ability Good Dynamic Standing Balance Ability Fair Balance Tests Functional Reach Functional Reach Test 9 Functional Reach Impairment Rating 1 to <20% Impaired (Score 9) Single Limb Standing Single Limb- Right unable Single Limb- Left unable Semi-Tandem Standing Semi-Tandem Standing Balance Requires assist to position and last < 2 second Tandem Tandem Standing Unable Du Fall Scale Copyright Permission PT-OP-F Manual Assessment Start: 10/06/18 13:40 Freq: Status: Active Protocol: Document 10/06/18 17:35 EA (Rec: 10/07/18 11:10 EA [id number]) Manual Assessments Soft Tissue Assessment Soft Tissue Mobility Assessment Tightness to calf muscles, hip rotators, quads, hamstrings Joint Mobility Assessment Joint Mobility Assessment Normal TC joint mobility PT-OP-G Mobility & Gait Start: 10/06/18 13:40 Freq: Status: Active Protocol: Document 10/06/18 17:35 EA (Rec: 10/07/18 11:10 EA [id number]) OP Mobility Evaluation Bed Mobility Rolling Minimal difficulty but indep Supine to and from Sit Moderate difficulty but indep Transfers Sit to Stand Indep Bed to Chair Transfers indep Functional Movements Lifting and Carrying Indep Squats 45 deg Running Assessment unable OP Gait Assessment Gait Gait Assistance Required: Independent Able to Maintain Weight Bearing Status Yes During Gait Assistive Devices Assistive Device None Gait Deviations General Gait Pattern Antalgic Decreased Feet Clearance Wide Based Gait Comments Gait Comments Patient exhibits steppage gait with decreased WB to RLE Stair Climbing Evaluation Evaluation Level of Assist On Stairs Independent Devices Stair Climbing Assistive Devices Left Railing Right Railing Technique/Endurance Stair Climbing Direction Ascend and Descend Stair Climbing Technique Step to Step Number of Steps Climbed 12 Comments Stair Climbing Comments slow w/ step to step gait with the use of both HR PT-OP-J Posture/Palpation/Skin Start: 10/06/18 13:40 Freq: Status: Active Protocol: Document 10/06/18 17:35 EA (Rec: 10/07/18 11:10 EA [id number]) Posture Evaluation Comments Posture Comments Rounded shoulder with increased lumbar curves and slight hip flex (fair posture) Palpation Assessment Location One Palpation Location ant. mid TC joint, base of 1st metatarsal joint Palpation Findings Tenderness Palpation Details Grade 2/4 tenderness Skin Assessment Circumference Measurement 1 Location mid TC joint Comments L=26 ; R=28 (slight right angle swelling but no signs of edema) PT-OP-K Range of Motion Start: 10/06/18 13:40 Freq: Status: Active Protocol: Document 10/06/18 17:35 EA (Rec: 10/07/18 11:10 EA [id number]) Shoulder Goniometric Range of Motion Shoulder ROM Limitations Shoulder ROM Limitations Soft Tissue Tightness Muscle Weakness Comments Impaired left shoulder function with a history of shoulder surgery. Hip Goniometric Range of Motion Hip Left Active Flexion w/Knee Flexed 90 Extension 15 Internal Rotation 25 External Rotation 20 Right Active Flexion w/Knee Flexed 90 Extension 15 Abduction 45 Internal Rotation 25 External Rotation 15 Hip ROM Limitations Hip ROM Limitations Soft Tissue Tightness Knee Goniometric Range of Motion Knee Right Knee ROM WFL Yes Ankle and Foot Goniometric Range of Motion Ankle and Foot Right Active Dorsiflexion with Knee Flexed 10 Plantarflexion 45 Inversion 30 Eversion 20 Left Active Ankle/Foot ROM WFL Yes Dorsiflexion with Knee Flexed 20 Plantarflexion 45 Inversion 35 Eversion 25 PT-OP-L Special Tests Start: 10/06/18 13:40 Freq: Status: Active Protocol: Document 10/06/18 17:35 EA (Rec: 10/07/18 11:10 EA [id number]) Special Tests Foot/Ankle Special Tests Talor Tilt Test Results - PT-OP-M Strength Start: 10/06/18 13:40 Freq: Status: Active Protocol: Document 10/06/18 17:35 EA (Rec: 10/07/18 11:10 EA [id number]) Hip Strength Hip Manual Muscle Testing Right Flexion (L2) 4 Good Extension (S1) 4 Good Abduction 4- Good- External Rotation 3+ Fair+ Internal Rotation 3+ Fair+ Left Flexion (L2) 4 Good Extension (S1) 4 Good Abduction 4 Good Adduction 4 Good External Rotation 3+ Fair+ Internal Rotation 3+ Fair+ Knee Strength Knee Manual Muscle Testing Left Reason Not Measured WFL Right Reason Not Measured WFL Ankle/Foot Strength Ankle and Foot Manual Muscle Testing Right Dorsiflexion (L4) 3 Fair Plantarflexion (S1) 3+ Fair+ Inversion 3 Fair Eversion (S1) 3 Fair Left Reason Not Measured WFL Toe Strength Toe Manual Muscle Testing Right Great Toe Flexion 4- Good- PT-OP-Q Treatments Start: 10/06/18 13:40 Freq: Status: Active Protocol: Document 11/23/18 15:18 SAK (Rec: 11/23/18 16:08 SAK [id number]) Cardio Equipment Recumbent Elliptical (Biodex) Duration (Minutes) 10 Resistance 1 Seat Position 6 Other LE's only last 5 min Gym Equipment Shuttle Balance Red Details N/W ANDRY, tandem Reps/Duration 5 min Comments balance and weight shifting Therapeutic Exercises Supine Exercises HC stretch Equipment Used L5 TB Reps/Minutes 2x30 [address] ankle Sitting Exercise Name inv, ever, DF Side right Resistance L1 TB Reps/Minutes 15x2 each Comments fatigue Standing Exercises tandem stand Reps/Minutes 4 min HC stretch Side bilateral Equipment Used CARMINA Reps/Minutes 3 min Comments f/b isometric ankle DF Gait Training Gait Activity straight cane Description Gait training for correct R LE positioning Device Used cane Level of Assistance level Surface verbal cues and demonstration Distance/Duration 5 min Comments Without cane pt waddles due to her holding her RLE in a more ABducted position Manual Therapy Treatment Soft Tissue Mobilization STM/Edema management Body Location right feet/calves Mobilization Type Manual Lymphatic Drainage Rolling Intensity/Depth Moderate Body Position Hooklying Joint Mobilizations talocrural Direction A/P Grade II Body Position Supine Comments right Taping right ankle Treatment Focus edema reduction Type of Tape Kinesio Tape Comments 2 fan strips (6 squares long) with I strip to anchor ends. PT-OP-R Modalities Start: 10/06/18 13:40 Freq: Status: Active Protocol: Document 11/23/18 15:18 [facility] (Rec: 11/23/18 16:08 [facility] [id number]) Hot Pack/Cold Pack Treatment Cold Pack Location R ankle (CRYOCUFF), CP to L ankle Patient Position Hooklying Patient Tolerance Good Comments LE's elevated above heart on bolster and wedge. PT-OP-T Assessment and Plan Start: 10/06/18 13:40 Freq: Status: Active Protocol: Document 11/23/18 15:18 [facility] (Rec: 11/23/18 16:08 [facility] [id number]) Physical Therapy Assessment Goals Four Impairment Two fall incidence in the last 6 months Bonbon Cream Warmer Goal (LTG) Patient will report no fall in the next 4 wks LTG Duration 4 wks Three Impairment Impaired gait Skilled Nursing Goal (LTG) Patient increased R ankle DF strength by 1/2 -1 grade to improve gait. LTG Duration 5 wks Two Impairment Impaired distance ambulation Bonbon Cream Warmer Goal (LTG) Patient will ambulate > a block with no assistive device with improve gait LTG Duration 4 wks One Impairment FAAM score 20/75 Bonbon Cream Warmer Goal (LTG) FAAM score of 40/75 LTG Duration 5 wks Assessment Summary Assessment Improved gait with use of cane . Decreased ankle df ROM and strength noted today due to increased edema. Trial use of kinesiotape for edema reduction Physical Therapy Plan Frequency and Duration Frequency of Treatment 2x/Week Duration of Treatment 10 WKS Plan of Care Start Date 10/06/18 Plan of Care End Date 12/15/18 Therapeutic Interventions Therapeutic Interventions Balance Training Gait Training Home Exercise Program Joint Mobilizations Manual Therapy Neuromuscular Re-education Patient/Caregiver Education Self-Care/Home Management Soft Tissue Mobilization Taping Therapeutic Exercises Modalities Cold Pack/Ice Massage Electric Stimulation Next Visit Focus/Plan Next Note Type Treatment Note Next Visit Plan add hip abductor strengthening , progress ther ex, manual treatment to increase ankle ROM and strength
--- NOTE | 2018-11-25 16:25 | PT.OTN ---
Current Diagnoses Pain in right ankle and joints of right foot (11/25/18) Displaced fracture of lateral malleolus of left fibula, subsequent encounter for closed fracture with routine healing (11/25/18) Sprain of unspecified ligament of left ankle, subsequent encounter (11/25/18) Physical Therapy Treatment Note PT-OP-A Visit Information Start: 10/06/18 13:40 Freq: Status: Active Protocol: Document 11/25/18 16:13 SAK (Rec: 11/25/18 16:25 SAK [id number]) Out-Patient Physical Therapy Visit Information Visit Information Visit Type Treatment Note Visit Start Time 15:15 Visit Stop Time 16:15 Total Visit Minutes 60 Visit Number 10 Number of INSPECTOR WATER POLLUTION CONTROL Visits 0 Evaluation Information Evaluation Date 10/06/18 PT-OP-B Current Condition Start: 10/06/18 13:40 Freq: Status: Active Protocol: Document 10/06/18 14:45 EA (Rec: 10/06/18 15:17 EA [id number]) Current Condition History of Current Condition Onset Date 07/17/2018 Current Complaints s/p right ankle sprain History of Current Condition Patient is a poor historian: Patient reports she tripped and fell at home and twisted her right ankle on July 17, 2018. Patient then went to [facility] on [facility] same day and given pain meds and was on boot upon discharged. She stated saw her specialist and referred to PT and discharged using foot immobilzer two weeks ago. Medical reports identified and on September 30, 2018 that she underwent multiple joints diagnostic imaging with no significant fracture identified except with avulsion fracture at the base of the right big toe but requires further imaging. Patient is currently ambulating with no AD and states she has ankle brace but does not like to use it. Medical reports from patient clinic stated that she is clear for weight bearing as tolerated with the use of ankle brace and they are aware that patient is not compliant with recommended WB and AD. Prior Treatments and Tests Pain Medication, on a foot immobilizer until two weeks ago from todays date. Future Testing and Treatments Planned She will see her air quality specialist on the second week of October/2018 for follow up. Treatment Goals Patient/Caregiver Goals Patient would like to increase right foot strength to improve walking. Prior Functional Status Baseline Function- ADL's Independent Baseline Function- Mobility Independent Baseline Function- Gait Gait difficulty due to right foot dropped with ability to walk > a block. Baseline Function- Work/School Patient is not currently working and is not on disability. Baseline Function- Other Patient able to perform light activities at home and she got help from her boyfriend and mother with heavy house chores . Current Functional Impairments (Reported) Functional Limitations- ADL's Unable to perform full house hold chores; laundry, outdoor errands and heavy tasks at home requires assistance. Personal care performed with difficulty Functional Limitations- Mobility/Gait Indep with out the use of AD in less than a block Functional Limitations- Work/School Not currently working Functional Limitations- Recreation/ Unable to do Hobbies Personal Factors Other Personal Factors That May Effect History of low back surgery, Therapy/Recovery Depression, 2 falls in the last 6 months with significant injury on last fall, Liver disease, seizure with last episode happen a year ago. PT-OP-C Subjective Start: 10/06/18 13:40 Freq: Status: Active Protocol: Document 11/25/18 16:13 SAK (Rec: 11/25/18 16:25 SAK [id number]) OP-PT Subjective Patient Comments Patient Comments Less swelling today. Tape felt ok but came off in bed last night. PT-OP-D Balance Start: 10/06/18 13:40 Freq: Status: Active Protocol: Document 10/06/18 17:35 EA (Rec: 10/07/18 11:10 EA [id number]) OP-PT Balance Assessment Sitting Balance Static Sitting Balance Ability Normal Dynamic Sitting Balance Ability Normal Standing Balance Static Standing Balance Ability Good Dynamic Standing Balance Ability Fair Balance Tests Functional Reach Functional Reach Test 9 Functional Reach Impairment Rating 1 to <20% Impaired (Score 9) Single Limb Standing Single Limb- Right unable Single Limb- Left unable Semi-Tandem Standing Semi-Tandem Standing Balance Requires assist to position and last < 2 second Tandem Tandem Standing Unable Du Fall Scale Copyright Permission PT-OP-F Manual Assessment Start: 10/06/18 13:40 Freq: Status: Active Protocol: Document 10/06/18 17:35 EA (Rec: 10/07/18 11:10 EA [id number]) Manual Assessments Soft Tissue Assessment Soft Tissue Mobility Assessment Tightness to calf muscles, hip rotators, quads, hamstrings Joint Mobility Assessment Joint Mobility Assessment Normal TC joint mobility PT-OP-G Mobility & Gait Start: 10/06/18 13:40 Freq: Status: Active Protocol: Document 10/06/18 17:35 EA (Rec: 10/07/18 11:10 EA [id number]) OP Mobility Evaluation Bed Mobility Rolling Minimal difficulty but indep Supine to and from Sit Moderate difficulty but indep Transfers Sit to Stand Indep Bed to Chair Transfers indep Functional Movements Lifting and Carrying Indep Squats 45 deg Running Assessment unable OP Gait Assessment Gait Gait Assistance Required: Independent Able to Maintain Weight Bearing Status Yes During Gait Assistive Devices Assistive Device None Gait Deviations General Gait Pattern Antalgic Decreased Feet Clearance Wide Based Gait Comments Gait Comments Patient exhibits steppage gait with decreased WB to RLE Stair Climbing Evaluation Evaluation Level of Assist On Stairs Independent Devices Stair Climbing Assistive Devices Left Railing Right Railing Technique/Endurance Stair Climbing Direction Ascend and Descend Stair Climbing Technique Step to Step Number of Steps Climbed 12 Comments Stair Climbing Comments slow w/ step to step gait with the use of both HR PT-OP-J Posture/Palpation/Skin Start: 10/06/18 13:40 Freq: Status: Active Protocol: Document 10/06/18 17:35 EA (Rec: 10/07/18 11:10 EA [id number]) Posture Evaluation Comments Posture Comments Rounded shoulder with increased lumbar curves and slight hip flex (fair posture) Palpation Assessment Location One Palpation Location ant. mid TC joint, base of 1st metatarsal joint Palpation Findings Tenderness Palpation Details Grade 2/4 tenderness Skin Assessment Circumference Measurement 1 Location mid TC joint Comments L=26 ; R=28 (slight right angle swelling but no signs of edema) PT-OP-K Range of Motion Start: 10/06/18 13:40 Freq: Status: Active Protocol: Document 10/06/18 17:35 EA (Rec: 10/07/18 11:10 EA [id number]) Shoulder Goniometric Range of Motion Shoulder ROM Limitations Shoulder ROM Limitations Soft Tissue Tightness Muscle Weakness Comments Impaired left shoulder function with a history of shoulder surgery. Hip Goniometric Range of Motion Hip Left Active Flexion w/Knee Flexed 90 Extension 15 Internal Rotation 25 External Rotation 20 Right Active Flexion w/Knee Flexed 90 Extension 15 Abduction 45 Internal Rotation 25 External Rotation 15 Hip ROM Limitations Hip ROM Limitations Soft Tissue Tightness Knee Goniometric Range of Motion Knee Right Knee ROM WFL Yes Ankle and Foot Goniometric Range of Motion Ankle and Foot Right Active Dorsiflexion with Knee Flexed 10 Plantarflexion 45 Inversion 30 Eversion 20 Left Active Ankle/Foot ROM WFL Yes Dorsiflexion with Knee Flexed 20 Plantarflexion 45 Inversion 35 Eversion 25 PT-OP-L Special Tests Start: 10/06/18 13:40 Freq: Status: Active Protocol: Document 10/06/18 17:35 EA (Rec: 10/07/18 11:10 EA [id number]) Special Tests Foot/Ankle Special Tests Talor Tilt Test Results - PT-OP-M Strength Start: 10/06/18 13:40 Freq: Status: Active Protocol: Document 10/06/18 17:35 EA (Rec: 10/07/18 11:10 EA [id number]) Hip Strength Hip Manual Muscle Testing Right Flexion (L2) 4 Good Extension (S1) 4 Good Abduction 4- Good- External Rotation 3+ Fair+ Internal Rotation 3+ Fair+ Left Flexion (L2) 4 Good Extension (S1) 4 Good Abduction 4 Good Adduction 4 Good External Rotation 3+ Fair+ Internal Rotation 3+ Fair+ Knee Strength Knee Manual Muscle Testing Left Reason Not Measured WFL Right Reason Not Measured WFL Ankle/Foot Strength Ankle and Foot Manual Muscle Testing Right Dorsiflexion (L4) 3 Fair Plantarflexion (S1) 3+ Fair+ Inversion 3 Fair Eversion (S1) 3 Fair Left Reason Not Measured WFL Toe Strength Toe Manual Muscle Testing Right Great Toe Flexion 4- Good- PT-OP-Q Treatments Start: 10/06/18 13:40 Freq: Status: Active Protocol: Document 11/25/18 16:13 SAK (Rec: 11/25/18 16:25 SAK [id number]) Cardio Equipment Recumbent Elliptical (Biodex) Duration (Minutes) 10 Resistance 1 Seat Position 6 Other LE's only last 5 min Gym Equipment Shuttle Balance Red Details N/W ANDRY, tandem Reps/Duration 5 min Comments balance and weight shifting fwd/bck, side/side Therapeutic Exercises Supine Exercises inversion, eversion Supine Exercise Name passive stretch Reps/Minutes 2x 30 HC stretch Equipment Used L5 TB, manual Reps/Minutes 3x30, Sitting Exercises BAPS board Sitting Exercise Name ankle df/pf, inv/ev, circles Side right Equipment Used L4 3 way ankle Sitting Exercise Name inv, ever, DF Side right Resistance L1 TB Reps/Minutes 15x2 each Comments fatigue Standing Exercises tandem stand Reps/Minutes 4 min SLS Side bilateral Equipment Used at bar Reps/Minutes 3 x 5 Comments UE support HC stretch Side bilateral Equipment Used CARMINA Reps/Minutes 3 min Comments f/b isometric ankle DF Gait Training Gait Activity straight cane Description Gait training for correct R LE positioning Device Used cane Level of Assistance level Surface verbal cues and demonstration Distance/Duration 5 min Comments Without cane pt waddles due to her holding her RLE in a more ABducted position Manual Therapy Treatment Joint Mobilizations talocrural Direction A/P Grade II Body Position Supine Comments right Taping right ankle Treatment Focus edema reduction Type of Tape Kinesio Tape Comments 2 fan strips (6 squares long) with I strip to anchor ends. PT-OP-R Modalities Start: 10/06/18 13:40 Freq: Status: Active Protocol: Document 11/25/18 16:13 [facility] (Rec: 11/25/18 16:25 [facility] [id number]) Hot Pack/Cold Pack Treatment Cold Pack Location R ankle (CRYOCUFF), CP to L ankle Patient Position Hooklying Patient Tolerance Good Comments LE's elevated above heart on bolster and wedge. PT-OP-T Assessment and Plan Start: 10/06/18 13:40 Freq: Status: Active Protocol: Document 11/25/18 16:13 [facility] (Rec: 11/25/18 16:25 [facility] [id number]) Physical Therapy Assessment Goals Four Impairment Two fall incidence in the last 6 months [employer] Goal (LTG) Patient will report no fall in the next 4 wks 11/26/18 mp recemt fa;; LTG Duration 4 wks Three Impairment Impaired gait [employer] Goal (LTG) Patient increased R ankle DF strength by 1/2 -1 grade to improve gait. 11/26/18: improve by 1/2 grade LTG Duration 5 wks Two Impairment Impaired distance ambulation Alf Goal (LTG) Patient will ambulate > a block with no assistive device with improve gait 11/26/18: goal progress LTG Duration 4 wks One Impairment FAAM score 20/75 Alf Goal (LTG) FAAM score of 40/75 11/25/18: goal progress LTG Duration 5 wks Assessment Summary Assessment Continue PT for right ankle rehab to improve ROM, strength , gait. Physical Therapy Plan Frequency and Duration Frequency of Treatment 2x/Week Duration of Treatment 10 WKS Plan of Care Start Date 10/06/18 Plan of Care End Date 12/15/18 Therapeutic Interventions Therapeutic Interventions Balance Training Gait Training Home Exercise Program Joint Mobilizations Manual Therapy Neuromuscular Re-education Patient/Caregiver Education Self-Care/Home Management Soft Tissue Mobilization Taping Therapeutic Exercises Modalities Cold Pack/Ice Massage Electric Stimulation Next Visit Focus/Plan Next Note Type Treatment Note Next Visit Plan add hip abductor strengthening , progress ther ex, manual treatment to increase ankle ROM and strength
--- NOTE | 2018-11-30 16:20 | PT.OTN ---
Current Diagnoses Pain in right ankle and joints of right foot (11/30/18) Displaced fracture of lateral malleolus of left fibula, subsequent encounter for closed fracture with routine healing (11/30/18) Sprain of unspecified ligament of left ankle, subsequent encounter (11/30/18) Physical Therapy Treatment Note PT-OP-A Visit Information Start: 10/06/18 13:40 Freq: Status: Active Protocol: Document 11/30/18 15:20 SAK (Rec: 11/30/18 16:20 SAK [id number]) Out-Patient Physical Therapy Visit Information Visit Information Visit Type Treatment Note Visit Start Time 15:15 Visit Stop Time 16:15 Total Visit Minutes 60 Visit Number 11 Number of HAND WOOD SANDER Visits 0 Evaluation Information Evaluation Date 10/06/18 PT-OP-B Current Condition Start: 10/06/18 13:40 Freq: Status: Active Protocol: Document 10/06/18 14:45 EA (Rec: 10/06/18 15:17 EA [id number]) Current Condition History of Current Condition Onset Date 07/17/2018 Current Complaints s/p right ankle sprain History of Current Condition Patient is a poor historian: Patient reports she tripped and fell at home and twisted her right ankle on July 17, 2018. Patient then went to [facility] on the same day and given pain meds and was on boot upon discharged. She stated saw her specialist and referred to PT and discharged using foot immobilzer two weeks ago. Medical reports identified and on September 30, 2018 that she underwent multiple joints diagnostic imaging with no significant fracture identified except with avulsion fracture at the base of the right big toe but requires further imaging. Patient is currently ambulating with no AD and states she has ankle brace but does not like to use it. Medical reports from patient clinic stated that she is clear for weight bearing as tolerated with the use of ankle brace and they are aware that patient is not compliant with recommended WB and AD. Prior Treatments and Tests Pain Medication, on a foot immobilizer until two weeks ago from todays date. Future Testing and Treatments Planned She will see her rehab specialist on the second week of October/2018 for follow up. Treatment Goals Patient/Caregiver Goals Patient would like to increase right foot strength to improve walking. Prior Functional Status Baseline Function- ADL's Independent Baseline Function- Mobility Independent Baseline Function- Gait Gait difficulty due to right foot dropped with ability to walk > a block. Baseline Function- Work/School Patient is not currently working and is not on disability. Baseline Function- Other Patient able to perform light activities at home and she got help from her boyfriend and mother with heavy house chores . Current Functional Impairments (Reported) Functional Limitations- ADL's Unable to perform full house hold chores; laundry, outdoor errands and heavy tasks at home requires assistance. Personal care performed with difficulty Functional Limitations- Mobility/Gait Indep with out the use of AD in less than a block Functional Limitations- Work/School Not currently working Functional Limitations- Recreation/ Unable to do Hobbies Personal Factors Other Personal Factors That May Effect History of low back surgery, Therapy/Recovery Depression, 2 falls in the last 6 months with significant injury on last fall, Liver disease, seizure with last episode happen a year ago. PT-OP-C Subjective Start: 10/06/18 13:40 Freq: Status: Active Protocol: Document 11/30/18 15:20 SAK (Rec: 11/30/18 16:20 SAK [id number]) OP-PT Subjective Patient Comments Patient Comments Had some increase in swelling over the weekend after going to [place], walked more than usual. States she will have compression stockings next visit. PT-OP-D Balance Start: 10/06/18 13:40 Freq: Status: Active Protocol: Document 10/06/18 17:35 EA (Rec: 10/07/18 11:10 EA [id number]) OP-PT Balance Assessment Sitting Balance Static Sitting Balance Ability Normal Dynamic Sitting Balance Ability Normal Standing Balance Static Standing Balance Ability Good Dynamic Standing Balance Ability Fair Balance Tests Functional Reach Functional Reach Test 9 Functional Reach Impairment Rating 1 to <20% Impaired (Score 9) Single Limb Standing Single Limb- Right unable Single Limb- Left unable Semi-Tandem Standing Semi-Tandem Standing Balance Requires assist to position and last < 2 second Tandem Tandem Standing Unable Du Fall Scale Copyright Permission PT-OP-F Manual Assessment Start: 10/06/18 13:40 Freq: Status: Active Protocol: Document 10/06/18 17:35 EA (Rec: 10/07/18 11:10 EA [id number]) Manual Assessments Soft Tissue Assessment Soft Tissue Mobility Assessment Tightness to calf muscles, hip rotators, quads, hamstrings Joint Mobility Assessment Joint Mobility Assessment Normal TC joint mobility PT-OP-G Mobility & Gait Start: 10/06/18 13:40 Freq: Status: Active Protocol: Document 10/06/18 17:35 EA (Rec: 10/07/18 11:10 EA [id number]) OP Mobility Evaluation Bed Mobility Rolling Minimal difficulty but indep Supine to and from Sit Moderate difficulty but indep Transfers Sit to Stand Indep Bed to Chair Transfers indep Functional Movements Lifting and Carrying Indep Squats 45 deg Running Assessment unable OP Gait Assessment Gait Gait Assistance Required: Independent Able to Maintain Weight Bearing Status Yes During Gait Assistive Devices Assistive Device None Gait Deviations General Gait Pattern Antalgic Decreased Feet Clearance Wide Based Gait Comments Gait Comments Patient exhibits steppage gait with decreased WB to RLE Stair Climbing Evaluation Evaluation Level of Assist On Stairs Independent Devices Stair Climbing Assistive Devices Left Railing Right Railing Technique/Endurance Stair Climbing Direction Ascend and Descend Stair Climbing Technique Step to Step Number of Steps Climbed 12 Comments Stair Climbing Comments slow w/ step to step gait with the use of both HR PT-OP-J Posture/Palpation/Skin Start: 10/06/18 13:40 Freq: Status: Active Protocol: Document 10/06/18 17:35 EA (Rec: 10/07/18 11:10 EA [id number]) Posture Evaluation Comments Posture Comments Rounded shoulder with increased lumbar curves and slight hip flex (fair posture) Palpation Assessment Location One Palpation Location ant. mid TC joint, base of 1st metatarsal joint Palpation Findings Tenderness Palpation Details Grade 2/4 tenderness Skin Assessment Circumference Measurement 1 Location mid TC joint Comments L=26 ; R=28 (slight right angle swelling but no signs of edema) PT-OP-K Range of Motion Start: 10/06/18 13:40 Freq: Status: Active Protocol: Document 10/06/18 17:35 EA (Rec: 10/07/18 11:10 EA [id number]) Shoulder Goniometric Range of Motion Shoulder ROM Limitations Shoulder ROM Limitations Soft Tissue Tightness Muscle Weakness Comments Impaired left shoulder function with a history of shoulder surgery. Hip Goniometric Range of Motion Hip Left Active Flexion w/Knee Flexed 90 Extension 15 Internal Rotation 25 External Rotation 20 Right Active Flexion w/Knee Flexed 90 Extension 15 Abduction 45 Internal Rotation 25 External Rotation 15 Hip ROM Limitations Hip ROM Limitations Soft Tissue Tightness Knee Goniometric Range of Motion Knee Right Knee ROM WFL Yes Ankle and Foot Goniometric Range of Motion Ankle and Foot Right Active Dorsiflexion with Knee Flexed 10 Plantarflexion 45 Inversion 30 Eversion 20 Left Active Ankle/Foot ROM WFL Yes Dorsiflexion with Knee Flexed 20 Plantarflexion 45 Inversion 35 Eversion 25 PT-OP-L Special Tests Start: 10/06/18 13:40 Freq: Status: Active Protocol: Document 10/06/18 17:35 EA (Rec: 10/07/18 11:10 EA [id number]) Special Tests Foot/Ankle Special Tests Talor Tilt Test Results - PT-OP-M Strength Start: 10/06/18 13:40 Freq: Status: Active Protocol: Document 10/06/18 17:35 EA (Rec: 10/07/18 11:10 EA [id number]) Hip Strength Hip Manual Muscle Testing Right Flexion (L2) 4 Good Extension (S1) 4 Good Abduction 4- Good- External Rotation 3+ Fair+ Internal Rotation 3+ Fair+ Left Flexion (L2) 4 Good Extension (S1) 4 Good Abduction 4 Good Adduction 4 Good External Rotation 3+ Fair+ Internal Rotation 3+ Fair+ Knee Strength Knee Manual Muscle Testing Left Reason Not Measured WFL Right Reason Not Measured WFL Ankle/Foot Strength Ankle and Foot Manual Muscle Testing Right Dorsiflexion (L4) 3 Fair Plantarflexion (S1) 3+ Fair+ Inversion 3 Fair Eversion (S1) 3 Fair Left Reason Not Measured WFL Toe Strength Toe Manual Muscle Testing Right Great Toe Flexion 4- Good- PT-OP-Q Treatments Start: 10/06/18 13:40 Freq: Status: Active Protocol: Document 11/30/18 15:20 SAK (Rec: 11/30/18 16:20 SAK [id number]) Cardio Equipment Recumbent Elliptical (Biodex) Duration (Minutes) 10 Resistance 2 Seat Position 6 Other LE's only last 5 min Gym Equipment Shuttle Balance Red Details N/W ANDRY, tandem Reps/Duration 5 min Comments balance and weight shifting fwd/bck, side/side Therapeutic Exercises Supine Exercises inversion, eversion Supine Exercise Name passive stretch Reps/Minutes 2x 30 HC stretch Equipment Used L5 TB, manual Reps/Minutes 3x30, Sidelying Exercises hip abd Reps/Minutes 10x Sitting Exercises BAPS board Sitting Exercise Name ankle df/pf, inv/ev, circles Side right Equipment Used L4 3 way ankle Sitting Exercise Name inv, ever, DF Side right Resistance L2 TB Reps/Minutes 15x2 each Comments fatigue Standing Exercises BOSU lunge Reps/Minutes 10x Comments florin UE support tandem stand Reps/Minutes 4 min SLS Side bilateral Equipment Used at bar Reps/Minutes 3 x 5 Comments UE support HC stretch Side bilateral Equipment Used CARMINA Reps/Minutes 3 min Comments f/b isometric ankle DF Gait Training Gait Activity Wgt Shifting Description Motor relearning Device Used mirror for visual feedback Surface firm level Distance/Duration 10 Treatment Focus Wgt shifting R & stepping with the R in proper position. Manual Therapy Treatment Joint Mobilizations talocrural Direction A/P Grade II Body Position Supine Comments right Taping right ankle Treatment Focus edema reduction Type of Tape Kinesio Tape Comments 2 fan strips (6 squares long) with I strip to anchor ends. PT-OP-R Modalities Start: 10/06/18 13:40 Freq: Status: Active Protocol: Document 11/30/18 15:20 [facility] (Rec: 11/30/18 16:20 [facility] [id number]) Hot Pack/Cold Pack Treatment Cold Pack Location R ankle (CRYOCUFF), CP to L ankle Patient Position Hooklying Patient Tolerance Good Comments LE's elevated above heart on bolster and wedge. Ultrasound Therapy Treatment right lateral ankle Treatment Duration (minutes) 8 Patient Position Hooklying Frequency Setting (mHz) 3 Mode Setting Pulsed Duty Cycle 50% Intensity Setting (w/cm2) 1.0 PT-OP-T Assessment and Plan Start: 10/06/18 13:40 Freq: Status: Active Protocol: Document 11/30/18 15:20 [facility] (Rec: 11/30/18 16:20 [facility] [id number]) Physical Therapy Assessment Goals Four Impairment Two fall incidence in the last 6 months Usp Goal (LTG) Patient will report no fall in the next 4 wks 11/26/18 mp recemt fa;; LTG Duration 4 wks Three Impairment Impaired gait Usp Goal (LTG) Patient increased R ankle DF strength by 1/2 -1 grade to improve gait. 11/26/18: improve by 1/2 grade LTG Duration 5 wks Two Impairment Impaired distance ambulation Programmer Developer Goal (LTG) Patient will ambulate > a block with no assistive device with improve gait 11/26/18: goal progress LTG Duration 4 wks One Impairment FAAM score 20/75 Usp Goal (LTG) FAAM score of 40/75 11/25/18: goal progress LTG Duration 5 wks Assessment Summary Assessment Able to progress ther ex on shuttle balance with good tolerance. Decreased edema and pain at end of session. Physical Therapy Plan Frequency and Duration Frequency of Treatment 2x/Week Duration of Treatment 10 WKS Plan of Care Start Date 10/06/18 Plan of Care End Date 12/15/18 Therapeutic Interventions Therapeutic Interventions Balance Training Gait Training Home Exercise Program Joint Mobilizations Manual Therapy Neuromuscular Re-education Patient/Caregiver Education Self-Care/Home Management Soft Tissue Mobilization Taping Therapeutic Exercises Modalities Cold Pack/Ice Massage Electric Stimulation Next Visit Focus/Plan Next Note Type Treatment Note Next Visit Plan Patient to bring compression stockings next session, will evaluate fit. Continue ultrasound if beneficial.
--- NOTE | 2018-12-02 13:42 | PT-OP ANOTE ---
Cancelled due to having a cold
--- NOTE | 2018-12-07 16:10 | PT.OTN ---
Current Diagnoses Pain in right ankle and joints of right foot (12/07/18) Displaced fracture of lateral malleolus of left fibula, subsequent encounter for closed fracture with routine healing (12/07/18) Sprain of unspecified ligament of left ankle, subsequent encounter (12/07/18) Physical Therapy Treatment Note PT-OP-A Visit Information Start: 10/06/18 13:40 Freq: Status: Active Protocol: Document 12/07/18 15:20 SAK (Rec: 12/07/18 16:09 SAK [id number]) Out-Patient Physical Therapy Visit Information Visit Information Visit Type Treatment Note Visit Start Time 15:15 Visit Stop Time 16:15 Total Visit Minutes 60 Visit Number 12 Number of COIL ASSEMBLER Visits 0 Evaluation Information Evaluation Date 10/06/18 PT-OP-B Current Condition Start: 10/06/18 13:40 Freq: Status: Active Protocol: Document 10/06/18 14:45 EA (Rec: 10/06/18 15:17 EA [id number]) Current Condition History of Current Condition Onset Date 07/17/2018 Current Complaints s/p right ankle sprain History of Current Condition Patient is a poor historian: Patient reports she tripped and fell at home and twisted her right ankle on July 17, 2018. Patient then went to [facility] on the same day and given pain meds and was on boot upon discharged. She stated saw her specialist and referred to PT and discharged using foot immobilzer two weeks ago. Medical reports identified and on September 30, 2018 that she underwent multiple joints diagnostic imaging with no significant fracture identified except with avulsion fracture at the base of the right big toe but requires further imaging. Patient is currently ambulating with no AD and states she has ankle brace but does not like to use it. Medical reports from patient clinic stated that she is clear for weight bearing as tolerated with the use of ankle brace and they are aware that patient is not compliant with recommended WB and AD. Prior Treatments and Tests Pain Medication, on a foot immobilizer until two weeks ago from todays date. Future Testing and Treatments Planned She will see her digital marketing specialist on the second week of October/2018 for follow up. Treatment Goals Patient/Caregiver Goals Patient would like to increase right foot strength to improve walking. Prior Functional Status Baseline Function- ADL's Independent Baseline Function- Mobility Independent Baseline Function- Gait Gait difficulty due to right foot dropped with ability to walk > a block. Baseline Function- Work/School Patient is not currently working and is not on disability. Baseline Function- Other Patient able to perform light activities at home and she got help from her boyfriend and mother with heavy house chores . Current Functional Impairments (Reported) Functional Limitations- ADL's Unable to perform full house hold chores; laundry, outdoor errands and heavy tasks at home requires assistance. Personal care performed with difficulty Functional Limitations- Mobility/Gait Indep with out the use of AD in less than a block Functional Limitations- Work/School Not currently working Functional Limitations- Recreation/ Unable to do Hobbies Personal Factors Other Personal Factors That May Effect History of low back surgery, Therapy/Recovery Depression, 2 falls in the last 6 months with significant injury on last fall, Liver disease, seizure with last episode happen a year ago. PT-OP-C Subjective Start: 10/06/18 13:40 Freq: Status: Active Protocol: Document 12/07/18 15:20 SAK (Rec: 12/07/18 16:09 SAK [id number]) OP-PT Subjective Patient Comments Patient Comments Has been sick for 1 week. Still no compression socks PT-OP-D Balance Start: 10/06/18 13:40 Freq: Status: Active Protocol: Document 10/06/18 17:35 EA (Rec: 10/07/18 11:10 EA [id number]) OP-PT Balance Assessment Sitting Balance Static Sitting Balance Ability Normal Dynamic Sitting Balance Ability Normal Standing Balance Static Standing Balance Ability Good Dynamic Standing Balance Ability Fair Balance Tests Functional Reach Functional Reach Test 9 Functional Reach Impairment Rating 1 to <20% Impaired (Score 9) Single Limb Standing Single Limb- Right unable Single Limb- Left unable Semi-Tandem Standing Semi-Tandem Standing Balance Requires assist to position and last < 2 second Tandem Tandem Standing Unable Du Fall Scale Copyright Permission PT-OP-F Manual Assessment Start: 10/06/18 13:40 Freq: Status: Active Protocol: Document 10/06/18 17:35 EA (Rec: 10/07/18 11:10 EA [id number]) Manual Assessments Soft Tissue Assessment Soft Tissue Mobility Assessment Tightness to calf muscles, hip rotators, quads, hamstrings Joint Mobility Assessment Joint Mobility Assessment Normal TC joint mobility PT-OP-G Mobility & Gait Start: 10/06/18 13:40 Freq: Status: Active Protocol: Document 10/06/18 17:35 EA (Rec: 10/07/18 11:10 EA [id number]) OP Mobility Evaluation Bed Mobility Rolling Minimal difficulty but indep Supine to and from Sit Moderate difficulty but indep Transfers Sit to Stand Indep Bed to Chair Transfers indep Functional Movements Lifting and Carrying Indep Squats 45 deg Running Assessment unable OP Gait Assessment Gait Gait Assistance Required: Independent Able to Maintain Weight Bearing Status Yes During Gait Assistive Devices Assistive Device None Gait Deviations General Gait Pattern Antalgic Decreased Feet Clearance Wide Based Gait Comments Gait Comments Patient exhibits steppage gait with decreased WB to RLE Stair Climbing Evaluation Evaluation Level of Assist On Stairs Independent Devices Stair Climbing Assistive Devices Left Railing Right Railing Technique/Endurance Stair Climbing Direction Ascend and Descend Stair Climbing Technique Step to Step Number of Steps Climbed 12 Comments Stair Climbing Comments slow w/ step to step gait with the use of both HR PT-OP-J Posture/Palpation/Skin Start: 10/06/18 13:40 Freq: Status: Active Protocol: Document 10/06/18 17:35 EA (Rec: 10/07/18 11:10 EA [id number]) Posture Evaluation Comments Posture Comments Rounded shoulder with increased lumbar curves and slight hip flex (fair posture) Palpation Assessment Location One Palpation Location ant. mid TC joint, base of 1st metatarsal joint Palpation Findings Tenderness Palpation Details Grade 2/4 tenderness Skin Assessment Circumference Measurement 1 Location mid TC joint Comments L=26 ; R=28 (slight right angle swelling but no signs of edema) PT-OP-K Range of Motion Start: 10/06/18 13:40 Freq: Status: Active Protocol: Document 10/06/18 17:35 EA (Rec: 10/07/18 11:10 EA [id number]) Shoulder Goniometric Range of Motion Shoulder ROM Limitations Shoulder ROM Limitations Soft Tissue Tightness Muscle Weakness Comments Impaired left shoulder function with a history of shoulder surgery. Hip Goniometric Range of Motion Hip Left Active Flexion w/Knee Flexed 90 Extension 15 Internal Rotation 25 External Rotation 20 Right Active Flexion w/Knee Flexed 90 Extension 15 Abduction 45 Internal Rotation 25 External Rotation 15 Hip ROM Limitations Hip ROM Limitations Soft Tissue Tightness Knee Goniometric Range of Motion Knee Right Knee ROM WFL Yes Ankle and Foot Goniometric Range of Motion Ankle and Foot Right Active Dorsiflexion with Knee Flexed 10 Plantarflexion 45 Inversion 30 Eversion 20 Left Active Ankle/Foot ROM WFL Yes Dorsiflexion with Knee Flexed 20 Plantarflexion 45 Inversion 35 Eversion 25 PT-OP-L Special Tests Start: 10/06/18 13:40 Freq: Status: Active Protocol: Document 10/06/18 17:35 EA (Rec: 10/07/18 11:10 EA [id number]) Special Tests Foot/Ankle Special Tests Talor Tilt Test Results - PT-OP-M Strength Start: 10/06/18 13:40 Freq: Status: Active Protocol: Document 10/06/18 17:35 EA (Rec: 10/07/18 11:10 EA [id number]) Hip Strength Hip Manual Muscle Testing Right Flexion (L2) 4 Good Extension (S1) 4 Good Abduction 4- Good- External Rotation 3+ Fair+ Internal Rotation 3+ Fair+ Left Flexion (L2) 4 Good Extension (S1) 4 Good Abduction 4 Good Adduction 4 Good External Rotation 3+ Fair+ Internal Rotation 3+ Fair+ Knee Strength Knee Manual Muscle Testing Left Reason Not Measured WFL Right Reason Not Measured WFL Ankle/Foot Strength Ankle and Foot Manual Muscle Testing Right Dorsiflexion (L4) 3 Fair Plantarflexion (S1) 3+ Fair+ Inversion 3 Fair Eversion (S1) 3 Fair Left Reason Not Measured WFL Toe Strength Toe Manual Muscle Testing Right Great Toe Flexion 4- Good- PT-OP-Q Treatments Start: 10/06/18 13:40 Freq: Status: Active Protocol: Document 12/07/18 15:20 SAK (Rec: 12/07/18 16:09 SAK [id number]) Cardio Equipment Recumbent Elliptical (Biodex) Duration (Minutes) 10 Resistance 2 Seat Position 6 Other LE's only last 5 min Gym Equipment Shuttle Recovery Unilateral Heel Raises Resistance 37 Shuttle Recovery Platform Stable Reps/Time 10x Bilateral Heel Raises Resistance 50 Shuttle Recovery Platform Stable Reps/Time 10x Unilateral Squats Resistance 37 Shuttle Recovery Platform Stable Reps/Time 10x Bilateral Squats Resistance 50 Shuttle Recovery Platform Stable Reps/Time 10x Shuttle Balance Red Details N/W ANDRY, tandem Reps/Duration 5 min Comments balance and weight shifting fwd/bck, side/side Therapeutic Exercises Supine Exercises HC stretch Equipment Used manual Reps/Minutes 3x30, Sitting Exercises BAPS board Sitting Exercise Name ankle df/pf, inv/ev, circles Side right Equipment Used L4 Standing Exercises tandem stand Reps/Minutes 4 min SLS Side bilateral Equipment Used at bar Reps/Minutes 3 x 5 Comments UE support HC stretch Side bilateral Equipment Used CARMINA Reps/Minutes 3 min Comments f/b isometric ankle DF Manual Therapy Treatment Joint Mobilizations talocrural Direction A/P Grade II Body Position Supine Comments right PT-OP-R Modalities Start: 10/06/18 13:40 Freq: Status: Active Protocol: Document 12/07/18 15:20 [facility] (Rec: 12/07/18 16:09 [facility] [id number]) Hot Pack/Cold Pack Treatment Cold Pack Location R ankle (CRYOCUFF), CP to L ankle Patient Position Hooklying Patient Tolerance Good Comments LE's elevated above heart on bolster and wedge. PT-OP-T Assessment and Plan Start: 10/06/18 13:40 Freq: Status: Active Protocol: Document 12/07/18 15:20 [facility] (Rec: 12/07/18 16:09 [facility] [id number]) Physical Therapy Assessment Goals Four Impairment Two fall incidence in the last 6 months Home Help Aide Goal (LTG) Patient will report no fall in the next 4 wks 11/26/18 No recent fall LTG Duration 4 wks Three Impairment Impaired gait Home Help Aide Goal (LTG) Patient increased R ankle DF strength by 1/2 -1 grade to improve gait. 11/26/18: improve by 1/2 grade LTG Duration 5 wks Two Impairment Impaired distance ambulation Home Help Aide Goal (LTG) Patient will ambulate > a block with no assistive device with improve gait 11/26/18: goal progress LTG Duration 4 wks One Impairment FAAM score 20/75 Care Home Goal (LTG) FAAM score of 40/75 11/25/18: goal progress LTG Duration 5 wks Assessment Summary Assessment Added shuttle recovery for leg press, heel raises. Reviewed SLS and tandem stand ex with instrsuction to increase compliance with HEP. Patient has not found compressiopn stockings but is willing to order new ones, has measurements provided by PT. Physical Therapy Plan Frequency and Duration Frequency of Treatment 2x/Week Duration of Treatment 10 WKS Plan of Care Start Date 10/06/18 Plan of Care End Date 12/15/18 Therapeutic Interventions Therapeutic Interventions Balance Training Gait Training Home Exercise Program Joint Mobilizations Manual Therapy Neuromuscular Re-education Patient/Caregiver Education Self-Care/Home Management Soft Tissue Mobilization Taping Therapeutic Exercises Modalities Cold Pack/Ice Massage Electric Stimulation Next Visit Focus/Plan Next Note Type Treatment Note Next Visit Plan Patient to order new compression stockings, increase compliance with HEP.
--- NOTE | 2018-12-13 16:56 | PT.OTN ---
Current Diagnoses Pain in right ankle and joints of right foot (12/09/18) Displaced fracture of lateral malleolus of left fibula, subsequent encounter for closed fracture with routine healing (12/09/18) Sprain of unspecified ligament of left ankle, subsequent encounter (12/09/18) Physical Therapy Treatment Note PT-OP-A Visit Information Start: 10/06/18 13:40 Freq: Status: Active Protocol: Document 12/09/18 15:17 SAK (Rec: 12/09/18 15:23 SAK [id number]) Out-Patient Physical Therapy Visit Information Visit Information Visit Type Treatment Note Visit Start Time 15:15 Visit Stop Time 16:15 Total Visit Minutes 60 Visit Number 13 Number of VALVE MACHINE OPERATOR Visits 0 Evaluation Information Evaluation Date 10/06/18 PT-OP-B Current Condition Start: 10/06/18 13:40 Freq: Status: Active Protocol: Document 10/06/18 14:45 EA (Rec: 10/06/18 15:17 EA [id number]) Current Condition History of Current Condition Onset Date 07/17/2018 Current Complaints s/p right ankle sprain History of Current Condition Patient is a poor historian: Patient reports she tripped and fell at home and twisted her right ankle on July 17, 2018. Patient then went to [facility] same day and given pain meds and was on boot upon discharged. She stated saw her specialist and referred to PT and discharged using foot immobilzer two weeks ago. Medical reports identified and on September 30, 2018 that she underwent multiple joints diagnostic imaging with no significant fracture identified except with avulsion fracture at the base of the right big toe but requires further imaging. Patient is currently ambulating with no AD and states she has ankle brace but does not like to use it. Medical reports from patient clinic stated that she is clear for weight bearing as tolerated with the use of ankle brace and they are aware that patient is not compliant with recommended WB and AD. Prior Treatments and Tests Pain Medication, on a foot immobilizer until two weeks ago from todays date. Future Testing and Treatments Planned She will see her med specialist on the second week of October/2018 for follow up. Treatment Goals Patient/Caregiver Goals Patient would like to increase right foot strength to improve walking. Prior Functional Status Baseline Function- ADL's Independent Baseline Function- Mobility Independent Baseline Function- Gait Gait difficulty due to right foot dropped with ability to walk > a block. Baseline Function- Work/School Patient is not currently working and is not on disability. Baseline Function- Other Patient able to perform light activities at home and she got help from her boyfriend and mother with heavy house chores . Current Functional Impairments (Reported) Functional Limitations- ADL's Unable to perform full house hold chores; laundry, outdoor errands and heavy tasks at home requires assistance. Personal care performed with difficulty Functional Limitations- Mobility/Gait Indep with out the use of AD in less than a block Functional Limitations- Work/School Not currently working Functional Limitations- Recreation/ Unable to do Hobbies Personal Factors Other Personal Factors That May Effect History of low back surgery, Therapy/Recovery Depression, 2 falls in the last 6 months with significant injury on last fall, Liver disease, seizure with last episode happen a year ago. PT-OP-C Subjective Start: 10/06/18 13:40 Freq: Status: Active Protocol: Document 12/09/18 15:17 SAK (Rec: 12/09/18 15:23 SAK [id number]) OP-PT Subjective Patient Comments Patient Comments Sore after a lot of walking yesterday. PT-OP-D Balance Start: 10/06/18 13:40 Freq: Status: Active Protocol: Document 10/06/18 17:35 EA (Rec: 10/07/18 11:10 EA [id number]) OP-PT Balance Assessment Sitting Balance Static Sitting Balance Ability Normal Dynamic Sitting Balance Ability Normal Standing Balance Static Standing Balance Ability Good Dynamic Standing Balance Ability Fair Balance Tests Functional Reach Functional Reach Test 9 Functional Reach Impairment Rating 1 to <20% Impaired (Score 9) Single Limb Standing Single Limb- Right unable Single Limb- Left unable Semi-Tandem Standing Semi-Tandem Standing Balance Requires assist to position and last < 2 second Tandem Tandem Standing Unable Du Fall Scale Copyright Permission PT-OP-F Manual Assessment Start: 10/06/18 13:40 Freq: Status: Active Protocol: Document 10/06/18 17:35 EA (Rec: 10/07/18 11:10 EA [id number]) Manual Assessments Soft Tissue Assessment Soft Tissue Mobility Assessment Tightness to calf muscles, hip rotators, quads, hamstrings Joint Mobility Assessment Joint Mobility Assessment Normal TC joint mobility PT-OP-G Mobility & Gait Start: 10/06/18 13:40 Freq: Status: Active Protocol: Document 10/06/18 17:35 EA (Rec: 10/07/18 11:10 EA [id number]) OP Mobility Evaluation Bed Mobility Rolling Minimal difficulty but indep Supine to and from Sit Moderate difficulty but indep Transfers Sit to Stand Indep Bed to Chair Transfers indep Functional Movements Lifting and Carrying Indep Squats 45 deg Running Assessment unable OP Gait Assessment Gait Gait Assistance Required: Independent Able to Maintain Weight Bearing Status Yes During Gait Assistive Devices Assistive Device None Gait Deviations General Gait Pattern Antalgic Decreased Feet Clearance Wide Based Gait Comments Gait Comments Patient exhibits steppage gait with decreased WB to RLE Stair Climbing Evaluation Evaluation Level of Assist On Stairs Independent Devices Stair Climbing Assistive Devices Left Railing Right Railing Technique/Endurance Stair Climbing Direction Ascend and Descend Stair Climbing Technique Step to Step Number of Steps Climbed 12 Comments Stair Climbing Comments slow w/ step to step gait with the use of both HR PT-OP-J Posture/Palpation/Skin Start: 10/06/18 13:40 Freq: Status: Active Protocol: Document 10/06/18 17:35 EA (Rec: 10/07/18 11:10 EA [id number]) Posture Evaluation Comments Posture Comments Rounded shoulder with increased lumbar curves and slight hip flex (fair posture) Palpation Assessment Location One Palpation Location ant. mid TC joint, base of 1st metatarsal joint Palpation Findings Tenderness Palpation Details Grade 2/4 tenderness Skin Assessment Circumference Measurement 1 Location mid TC joint Comments L=26 ; R=28 (slight right angle swelling but no signs of edema) PT-OP-K Range of Motion Start: 10/06/18 13:40 Freq: Status: Active Protocol: Document 10/06/18 17:35 EA (Rec: 10/07/18 11:10 EA [id number]) Shoulder Goniometric Range of Motion Shoulder ROM Limitations Shoulder ROM Limitations Soft Tissue Tightness Muscle Weakness Comments Impaired left shoulder function with a history of shoulder surgery. Hip Goniometric Range of Motion Hip Left Active Flexion w/Knee Flexed 90 Extension 15 Internal Rotation 25 External Rotation 20 Right Active Flexion w/Knee Flexed 90 Extension 15 Abduction 45 Internal Rotation 25 External Rotation 15 Hip ROM Limitations Hip ROM Limitations Soft Tissue Tightness Knee Goniometric Range of Motion Knee Right Knee ROM WFL Yes Ankle and Foot Goniometric Range of Motion Ankle and Foot Right Active Dorsiflexion with Knee Flexed 10 Plantarflexion 45 Inversion 30 Eversion 20 Left Active Ankle/Foot ROM WFL Yes Dorsiflexion with Knee Flexed 20 Plantarflexion 45 Inversion 35 Eversion 25 PT-OP-L Special Tests Start: 10/06/18 13:40 Freq: Status: Active Protocol: Document 10/06/18 17:35 EA (Rec: 10/07/18 11:10 EA [id number]) Special Tests Foot/Ankle Special Tests Talor Tilt Test Results - PT-OP-M Strength Start: 10/06/18 13:40 Freq: Status: Active Protocol: Document 10/06/18 17:35 EA (Rec: 10/07/18 11:10 EA [id number]) Hip Strength Hip Manual Muscle Testing Right Flexion (L2) 4 Good Extension (S1) 4 Good Abduction 4- Good- External Rotation 3+ Fair+ Internal Rotation 3+ Fair+ Left Flexion (L2) 4 Good Extension (S1) 4 Good Abduction 4 Good Adduction 4 Good External Rotation 3+ Fair+ Internal Rotation 3+ Fair+ Knee Strength Knee Manual Muscle Testing Left Reason Not Measured WFL Right Reason Not Measured WFL Ankle/Foot Strength Ankle and Foot Manual Muscle Testing Right Dorsiflexion (L4) 3 Fair Plantarflexion (S1) 3+ Fair+ Inversion 3 Fair Eversion (S1) 3 Fair Left Reason Not Measured WFL Toe Strength Toe Manual Muscle Testing Right Great Toe Flexion 4- Good- PT-OP-Q Treatments Start: 10/06/18 13:40 Freq: Status: Active Protocol: Document 12/09/18 15:17 SAK (Rec: 12/09/18 16:01 SAK [id number]) Cardio Equipment Recumbent Elliptical (Biodex) Duration (Minutes) 10 Resistance 2 Seat Position 6 Other LE's only last 5 min Gym Equipment Shuttle Recovery Unilateral Heel Raises Resistance 37 Shuttle Recovery Platform Stable Reps/Time 10x Bilateral Heel Raises Resistance 50 Shuttle Recovery Platform Stable Reps/Time 10x Unilateral Squats Resistance 37 Shuttle Recovery Platform Unstable Reps/Time 10x Bilateral Squats Resistance 50 Shuttle Recovery Platform Unstable Reps/Time 10x Shuttle Balance Red Details N/W ANDRY, tandem Reps/Duration 5 min Comments balance and weight shifting fwd/bck, side/side Therapeutic Exercises Supine Exercises inversion, eversion Supine Exercise Name passive stretch Reps/Minutes 2x 30 HC stretch Equipment Used strap Reps/Minutes 3x30, Sitting Exercises BAPS board Sitting Exercise Name ankle df/pf, inv/ev, circles Side right Equipment Used L4 3 way ankle Sitting Exercise Name inv, ever, DF Side right Resistance L2 TB Reps/Minutes 15x2 each Comments fatigue Manual Therapy Treatment Soft Tissue Mobilization STM/Edema management Body Location right foot and ankle Mobilization Type Manual Lymphatic Drainage Rolling Intensity/Depth Moderate Body Position Hooklying Joint Mobilizations talocrural Direction A/P Grade II Body Position Supine Comments right PT-OP-R Modalities Start: 10/06/18 13:40 Freq: Status: Active Protocol: Document 12/09/18 15:17 [facility] (Rec: 12/09/18 15:23 [facility] [id number]) Hot Pack/Cold Pack Treatment Cold Pack Location R ankle (CRYOCUFF), CP to L ankle Patient Position Hooklying Patient Tolerance Good Comments LE's elevated above heart on bolster and wedge. Ultrasound Therapy Treatment right lateral ankle Treatment Duration (minutes) 8 Patient Position Hooklying Frequency Setting (mHz) 3 Mode Setting Pulsed Duty Cycle 50% Intensity Setting (w/cm2) 1.0 PT-OP-T Assessment and Plan Start: 10/06/18 13:40 Freq: Status: Active Protocol: Document 12/09/18 15:17 [facility] (Rec: 12/09/18 15:23 [facility] [id number]) Physical Therapy Assessment Goals Four Impairment Two fall incidence in the last 6 months Puncher Goal (LTG) Patient will report no fall in the next 4 wks 11/26/18 No recent fall LTG Duration 4 wks Three Impairment Impaired gait Puncher Goal (LTG) Patient increased R ankle DF strength by 1/2 -1 grade to improve gait. 11/26/18: improve by 1/2 grade LTG Duration 5 wks Two Impairment Impaired distance ambulation Retirement Goal (LTG) Patient will ambulate > a block with no assistive device with improve gait 11/26/18: goal progress LTG Duration 4 wks One Impairment FAAM score 20/75 Puncher Goal (LTG) FAAM score of 40/75 11/25/18: goal progress LTG Duration 5 wks Assessment Summary Assessment Increased emphasis on manual therapy today due to fatigue and soreness from increased walking yesterday. Patient demonstrates lack of full weight shift to her right LE with gait; needs moderate cues . Physical Therapy Plan Frequency and Duration Frequency of Treatment 2x/Week Duration of Treatment 10 WKS Plan of Care Start Date 10/06/18 Plan of Care End Date 12/15/18 Therapeutic Interventions Therapeutic Interventions Balance Training Gait Training Home Exercise Program Joint Mobilizations Manual Therapy Neuromuscular Re-education Patient/Caregiver Education Self-Care/Home Management Soft Tissue Mobilization Taping Therapeutic Exercises Modalities Cold Pack/Ice Massage Electric Stimulation Next Visit Focus/Plan Next Note Type Re-Evaluation Next Visit Plan Reassess objective measureness next session
--- NOTE | 2018-12-14 17:11 | PT.OTRE ---
Current Diagnoses Pain in right ankle and joints of right foot (12/14/18) Displaced fracture of lateral malleolus of left fibula, subsequent encounter for closed fracture with routine healing (12/14/18) Sprain of unspecified ligament of left ankle, subsequent encounter (12/14/18) Past Medical History (Last Updated 11/04/18 @ 14:38 by Oneyda Hand MD) Colon polyp (Acute) Anxiety (Chronic) Avascular necrosis (Chronic) COPD (chronic obstructive pulmonary disease) (Chronic) Cirrhosis (Chronic) Depression (Chronic) Esophageal varices (Chronic) Esophageal web (Chronic) Hayfever (Chronic) Hemorrhoids (Chronic) Hypothyroidism (Chronic 1997) Irregular periods/menstrual cycles (Chronic) Pancytopenia (Chronic) Seizures (Chronic) Shoulder pain (Chronic) Substance abuse (Chronic) Chicken pox (Resolved) Chlamydia (Resolved ) History of total thyroidectomy (Resolved 1997) MRSA infection (Resolved) Thyroid cancer (Resolved 02/1998) Surgical History (Last Reviewed 09/30/18 @ 20:41 by Sindi Armendariz PA-C) Anesthesia complication (Resolved) History of adenoidectomy (Resolved) History of bunionectomy (Resolved) History of bunionectomy (Resolved) History of dilation and curettage (Resolved) History of esophageal surgery (Resolved 2016) History of left hip replacement (Resolved 08/2017) History of placement of ear tubes (Resolved) History of right hip replacement (Resolved 11/2017) History of tonsillectomy (Resolved) Provider Visit Care Team Role Provider Type Miguel Ángel Leary MD Primary Care Provider Physician Specialty: Internal Medicine Address: [address] [place] [address], [id number] Email: Nikki Yang PA-C Attending Provider Physician Specialty: Orthopedic Surgery Address: [address] [place] [address], [phone] Fax: Email: Physical Therapy Re-Evaluation PT-OP-A Visit Information Start: 10/06/18 13:40 Freq: Status: Active Protocol: Document 12/14/18 15:38 SAK (Rec: 12/14/18 17:11 SAK [id number]) Out-Patient Physical Therapy Visit Information Visit Information Visit Type Treatment Note Visit Start Time 15:15 Visit Stop Time 16:15 Total Visit Minutes 60 Visit Number 14 Number of RN MIDWIFE Visits 0 Evaluation Information Evaluation Date 10/06/18 PT-OP-B Current Condition Start: 10/06/18 13:40 Freq: Status: Active Protocol: Document 10/06/18 14:45 GABI (Rec: 10/06/18 15:17 EA [id number]) Current Condition History of Current Condition Onset Date 07/17/2018 Current Complaints s/p right ankle sprain History of Current Condition Patient is a poor historian: Patient reports she tripped and fell at home and twisted her right ankle on July 17, 2018. Patient then went to [facility] and given pain meds and was on boot upon discharged. She stated saw her specialist and referred to PT and discharged using foot immobilzer two weeks ago. Medical reports identified and on September 30, 2018 that she underwent multiple joints diagnostic imaging with no significant fracture identified except with avulsion fracture at the base of the right big toe but requires further imaging. Patient is currently ambulating with no AD and states she has ankle brace but does not like to use it. Medical reports from patient clinic stated that she is clear for weight bearing as tolerated with the use of ankle brace and they are aware that patient is not compliant with recommended WB and AD. Prior Treatments and Tests Pain Medication, on a foot immobilizer until two weeks ago from todays date. Future Testing and Treatments Planned She will see her product marketing specialist on the second week of October/2018 for follow up. Treatment Goals Patient/Caregiver Goals Patient would like to increase right foot strength to improve walking. Prior Functional Status Baseline Function- ADL's Independent Baseline Function- Mobility Independent Baseline Function- Gait Gait difficulty due to right foot dropped with ability to walk > a block. Baseline Function- Work/School Patient is not currently working and is not on disability. Baseline Function- Other Patient able to perform light activities at home and she got help from her boyfriend and mother with heavy house chores . Current Functional Impairments (Reported) Functional Limitations- ADL's Unable to perform full house hold chores; laundry, outdoor errands and heavy tasks at home requires assistance. Personal care performed with difficulty Functional Limitations- Mobility/Gait Indep with out the use of AD in less than a block Functional Limitations- Work/School Not currently working Functional Limitations- Recreation/ Unable to do Hobbies Personal Factors Other Personal Factors That May Effect History of low back surgery, Therapy/Recovery Depression, 2 falls in the last 6 months with significant injury on last fall, Liver disease, seizure with last episode happen a year ago. PT-OP-C Subjective Start: 10/06/18 13:40 Freq: Status: Active Protocol: Document 12/14/18 15:38 SAK (Rec: 12/14/18 17:11 SAK [id number]) OP-PT Subjective Patient Comments Patient Comments Obtained compression stockings , hasn't tried yet. PT-OP-D Balance Start: 10/06/18 13:40 Freq: Status: Active Protocol: Document 10/06/18 17:35 EA (Rec: 10/07/18 11:10 EA [id number]) OP-PT Balance Assessment Sitting Balance Static Sitting Balance Ability Normal Dynamic Sitting Balance Ability Normal Standing Balance Static Standing Balance Ability Good Dynamic Standing Balance Ability Fair Balance Tests Functional Reach Functional Reach Test 9 Functional Reach Impairment Rating 1 to <20% Impaired (Score 9) Single Limb Standing Single Limb- Right unable Single Limb- Left unable Semi-Tandem Standing Semi-Tandem Standing Balance Requires assist to position and last < 2 second Tandem Tandem Standing Unable Du Fall Scale Copyright Permission Florian NEVES, Florian RM, [place]. Development of a scale to identify the fall- prone patient. Can J Aging 1989;8;366-7. Jackeline Du (2009). Preventing patient falls. (2nd ed). [place]: [place]. PT-OP-F Manual Assessment Start: 10/06/18 13:40 Freq: Status: Active Protocol: Document 10/06/18 17:35 EA (Rec: 10/07/18 11:10 EA [id number]) Manual Assessments Soft Tissue Assessment Soft Tissue Mobility Assessment Tightness to calf muscles, hip rotators, quads, hamstrings Joint Mobility Assessment Joint Mobility Assessment Normal TC joint mobility PT-OP-G Mobility & Gait Start: 10/06/18 13:40 Freq: Status: Active Protocol: Document 10/06/18 17:35 EA (Rec: 10/07/18 11:10 EA [id number]) OP Mobility Evaluation Bed Mobility Rolling Minimal difficulty but indep Supine to and from Sit Moderate difficulty but indep Transfers Sit to Stand Indep Bed to Chair Transfers indep Functional Movements Lifting and Carrying Indep Squats 45 deg Running Assessment unable OP Gait Assessment Gait Gait Assistance Required: Independent Able to Maintain Weight Bearing Status Yes During Gait Assistive Devices Assistive Device None Gait Deviations General Gait Pattern Antalgic Decreased Feet Clearance Wide Based Gait Comments Gait Comments Patient exhibits steppage gait with decreased WB to RLE Stair Climbing Evaluation Evaluation Level of Assist On Stairs Independent Devices Stair Climbing Assistive Devices Left Railing Right Railing Technique/Endurance Stair Climbing Direction Ascend and Descend Stair Climbing Technique Step to Step Number of Steps Climbed 12 Comments Stair Climbing Comments slow w/ step to step gait with the use of both HR PT-OP-J Posture/Palpation/Skin Start: 10/06/18 13:40 Freq: Status: Active Protocol: Document 10/06/18 17:35 EA (Rec: 10/07/18 11:10 EA [id number]) Posture Evaluation Comments Posture Comments Rounded shoulder with increased lumbar curves and slight hip flex (fair posture) Palpation Assessment Location One Palpation Location ant. mid TC joint, base of 1st metatarsal joint Palpation Findings Tenderness Palpation Details Grade 2/4 tenderness Skin Assessment Circumference Measurement 1 Location mid TC joint Comments L=26 ; R=28 (slight right angle swelling but no signs of edema) PT-OP-K Range of Motion Start: 10/06/18 13:40 Freq: Status: Active Protocol: Document 10/06/18 17:35 EA (Rec: 10/07/18 11:10 EA [id number]) Shoulder Goniometric Range of Motion Shoulder ROM Limitations Shoulder ROM Limitations Soft Tissue Tightness Muscle Weakness Comments Impaired left shoulder function with a history of shoulder surgery. Hip Goniometric Range of Motion Hip Measured in Degrees Left Active Flexion w/Knee Flexed 90 Extension 15 Internal Rotation 25 External Rotation 20 Right Active Flexion w/Knee Flexed 90 Extension 15 Abduction 45 Internal Rotation 25 External Rotation 15 Hip ROM Limitations Hip ROM Limitations Soft Tissue Tightness Knee Goniometric Range of Motion Knee Measured in Degrees Right Knee ROM WFL Yes Ankle and Foot Goniometric Range of Motion Ankle and Foot Measured in Degrees Right Active Dorsiflexion with Knee Flexed 10 Plantarflexion 45 Inversion 30 Eversion 20 Left Active Ankle/Foot ROM WFL Yes Dorsiflexion with Knee Flexed 20 Plantarflexion 45 Inversion 35 Eversion 25 PT-OP-L Special Tests Start: 10/06/18 13:40 Freq: Status: Active Protocol: Document 10/06/18 17:35 EA (Rec: 10/07/18 11:10 EA [id number]) Special Tests Foot/Ankle Special Tests Talor Tilt Test Results - PT-OP-M Strength Start: 10/06/18 13:40 Freq: Status: Active Protocol: Document 12/14/18 15:38 [facility] (Rec: 12/14/18 16:16 SAK [id number]) Ankle/Foot Strength Ankle and Foot Manual Muscle Testing Right Dorsiflexion (L4) 3 Fair Plantarflexion (S1) 4- Good- Inversion 3+ Fair+ Eversion (S1) 3+ Fair+ Left Reason Not Measured WFL PT-OP-Q Treatments Start: 10/06/18 13:40 Freq: Status: Active Protocol: Document 12/14/18 15:38 [facility] (Rec: 12/14/18 17:11 [facility] [id number]) Cardio Equipment Recumbent Elliptical ([employer]) Duration (Minutes) 10 Resistance 3 Seat Position 6 Other LE's only last 5 min Therapeutic Exercises Supine Exercises inversion, eversion Supine Exercise Name passive stretch Reps/Minutes 2x 30 HC stretch Equipment Used strap Reps/Minutes 3x30, Sitting Exercises 3 way ankle Sitting Exercise Name inv, ever, DF Side right Resistance L2 TB Reps/Minutes 15x2 each Comments fatigue Standing Exercises shallow squats Reps/Minutes 10x Comments crepitus right knee HC stretch Side bilateral Equipment Used CARMINA Reps/Minutes 3 min Comments f/b isometric ankle DF Gait Training Gait Activity Wgt Shifting Description Motor relearning Surface firm level Treatment Focus Wgt shifting R & stepping with the R in proper position. PT-OP-R Modalities Start: 10/06/18 13:40 Freq: Status: Active Protocol: Document 12/14/18 15:38 [facility] (Rec: 12/14/18 17:11 [facility] [id number]) Electric Stimulation Electric Stimulation Malagasy Stimulation Body Location right ankle df Duration (Minutes) 10 Intensity 34 Contraction Type Normal Cycle 10/10 Ramp 2.0 Patient Position Hooklying Comments active ankle dorsiflexion when on Hot Pack/Cold Pack Treatment Cold Pack Location R ankle ([id number]), CP to L ankle Patient Position Hooklying Patient Tolerance Good Comments LE's elevated above heart on bolster and wedge. PT-OP-T Assessment and Plan Start: 10/06/18 13:40 Freq: Status: Active Protocol: Document 12/14/18 15:38 SAK (Rec: 12/14/18 17:11 [facility] [id number]) Physical Therapy Assessment Goals Four Impairment Two fall incidence in the last 6 months Director Ambulatory Goal (LTG) Patient will report no fall in the next 4 wks 11/26/18 No recent fall LTG Duration goal met Three Impairment Impaired gait Director Ambulatory Goal (LTG) Patient increased R ankle DF strength by 1/2 -1 grade to improve gait. 12/14/18: improved by 1/2 grade LTG Duration 01/25/19 Two Impairment Impaired distance ambulation Director Ambulatory Goal (LTG) Patient will ambulate > a block with no assistive device with improved gait 12/14/18: goal met NEW GOAL: patient able to walk community distances without assistive device with equal step length and weight shift mechanics and no LOB LTG Duration 01/25/19 One Impairment FAAM score 20/75 Director Ambulatory Goal (LTG) FAAM score of 40/75 12/14/18: goal progress to 31/75 LTG Duration 01/25/19 Assessment Summary Assessment Goal progress in all areas. Would benefit from further PT to help her fully achieve her goals and return to a more active and safe lifestyle. Does not tolerate compression stockings and unable to don, noone able to do for her. Physical Therapy Plan Frequency and Duration Frequency of Treatment 2x/Week Duration of Treatment 6 wks Plan of Care Start Date 12/14/18 Plan of Care End Date 01/25/19 Therapeutic Interventions Therapeutic Interventions Balance Training Gait Training Home Exercise Program Joint Mobilizations Manual Therapy Neuromuscular Re-education Patient/Caregiver Education Self-Care/Home Management Soft Tissue Mobilization Taping Therapeutic Exercises Modalities Cold Pack/Ice Massage Electric Stimulation Next Visit Focus/Plan Next Note Type Treatment Note Next Visit Plan Progress therapeutic exercises , continue e-stim to right ankle df for neur re-ed and assistance with strengthening.
--- NOTE | 2018-12-14 17:11 | PT.OPPOC ---
Current Diagnoses Pain in right ankle and joints of right foot (12/14/18) Displaced fracture of lateral malleolus of left fibula, subsequent encounter for closed fracture with routine healing (12/14/18) Sprain of unspecified ligament of left ankle, subsequent encounter (12/14/18) Provider Visit Care Team Role Provider Type Miguel Ángel Leary MD Primary Care Provider Physician Specialty: Internal Medicine Address: [address] [place] [address], [phone] Email: Nikki Yang PA-C Attending Provider Physician Specialty: Orthopedic Surgery Address: [address] [place] [address], [address] Fax: Email: Plan Of Care PT-OP-T Assessment and Plan Start: 10/06/18 13:40 Freq: Status: Active Protocol: Document 12/14/18 15:38 SAK (Rec: 12/14/18 17:11 SAK [id number]) Physical Therapy Assessment Goals Four Impairment Two fall incidence in the last 6 months Alf Goal (LTG) Patient will report no fall in the next 4 wks 11/26/18 No recent fall LTG Duration goal met Three Impairment Impaired gait Alf Goal (LTG) Patient increased R ankle DF strength by 1/2 -1 grade to improve gait. 12/14/18: improved by 1/2 grade LTG Duration 01/25/19 Two Impairment Impaired distance ambulation Master Sonar Technician Goal (LTG) Patient will ambulate > a block with no assistive device with improved gait 12/14/18: goal met NEW GOAL: patient able to walk community distances without assistive device with equal step length and weight shift mechanics and no LOB LTG Duration 01/25/19 One Impairment FAAM score 20/75 Alf Goal (LTG) FAAM score of 40/75 12/14/18: goal progress to 31/75 LTG Duration 01/25/19 Assessment Summary Assessment Goal progress in all areas. Would benefit from further PT to help her fully achieve her goals and return to a more active and safe lifestyle. Does not tolerate compression stockings and unable to don, noone able to do for her. Physical Therapy Plan Frequency and Duration Frequency of Treatment 2x/Week Duration of Treatment 6 wks Plan of Care Start Date 12/14/18 Plan of Care End Date 01/25/19 Therapeutic Interventions Therapeutic Interventions Balance Training Gait Training Home Exercise Program Joint Mobilizations Manual Therapy Neuromuscular Re-education Patient/Caregiver Education Self-Care/Home Management Soft Tissue Mobilization Taping Therapeutic Exercises Modalities Cold Pack/Ice Massage Electric Stimulation Next Visit Focus/Plan Next Note Type Treatment Note Next Visit Plan Progress therapeutic exercises , continue e-stim to right ankle df for neur re-ed and assistance with strengthening. Plan of Care Dates Plan of Care Start Date 12/14/18 Plan of Care End Date 01/25/19 Please Sign and Return: I have reviewed this Plan of Care and certify that the skilled therapy services above are required to meet the patient?s needs. Physician Signature Date Printed Name and Credentials Clinical Instructor Signature Printed Name and Credentials
--- NOTE | 2018-12-16 16:25 | PT.OTN ---
Current Diagnoses Pain in right ankle and joints of right foot (12/16/18) Displaced fracture of lateral malleolus of left fibula, subsequent encounter for closed fracture with routine healing (12/16/18) Sprain of unspecified ligament of left ankle, subsequent encounter (12/16/18) Physical Therapy Treatment Note PT-OP-A Visit Information Start: 10/06/18 13:40 Freq: Status: Active Protocol: Document 12/16/18 15:24 SAK (Rec: 12/16/18 16:25 SAK [id number]) Out-Patient Physical Therapy Visit Information Visit Information Visit Type Treatment Note Visit Start Time 15:15 Visit Stop Time 16:15 Total Visit Minutes 60 Visit Number 14 Number of LAST TURNER Visits 0 Evaluation Information Evaluation Date 10/06/18 PT-OP-B Current Condition Start: 10/06/18 13:40 Freq: Status: Active Protocol: Document 10/06/18 14:45 EA (Rec: 10/06/18 15:17 EA [id number]) Current Condition History of Current Condition Onset Date 07/17/2018 Current Complaints s/p right ankle sprain History of Current Condition Patient is a poor historian: Patient reports she tripped and fell at home and twisted her right ankle on July 17, 2018. Patient then went to [facility] on the same day and given pain meds and was on boot upon discharged. She stated saw her specialist and referred to PT and discharged using foot immobilzer two weeks ago. Medical reports identified and on September 30, 2018 that she underwent multiple joints diagnostic imaging with no significant fracture identified except with avulsion fracture at the base of the right big toe but requires further imaging. Patient is currently ambulating with no AD and states she has ankle brace but does not like to use it. Medical reports from patient clinic stated that she is clear for weight bearing as tolerated with the use of ankle brace and they are aware that patient is not compliant with recommended WB and AD. Prior Treatments and Tests Pain Medication, on a foot immobilizer until two weeks ago from todays date. 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 Treatment Goals Patient/Caregiver Goals Patient would like to increase right foot strength to improve walking. Prior Functional Status Baseline Function- ADL's Independent Baseline Function- Mobility Independent Baseline Function- Gait Gait difficulty due to right foot dropped with ability to walk > a block. Baseline Function- Work/School Patient is not currently working and is not on disability. Baseline Function- Other Patient able to perform light activities at home and she got help from her boyfriend and mother with heavy house chores . Current Functional Impairments (Reported) Functional Limitations- ADL's Unable to perform full house hold chores; laundry, outdoor errands and heavy tasks at home requires assistance. Personal care performed with difficulty Functional Limitations- Mobility/Gait Indep with out the use of AD in less than a block Functional Limitations- Work/School Not currently working Functional Limitations- Recreation/ Unable to do Hobbies Personal Factors Other Personal Factors That May Effect History of low back surgery, Therapy/Recovery Depression, 2 falls in the last 6 months with significant injury on last fall, Liver disease, seizure with last episode happen a year ago. PT-OP-C Subjective Start: 10/06/18 13:40 Freq: Status: Active Protocol: Document 12/16/18 15:24 SAK (Rec: 12/16/18 16:25 SAK [id number]) OP-PT Subjective Patient Comments Patient Comments States she found her AFO, doesn't fit as her calf is bigger now. Would like kinesiotape again since not able to wear compression stockings. PT-OP-D Balance Start: 10/06/18 13:40 Freq: Status: Active Protocol: Document 10/06/18 17:35 EA (Rec: 10/07/18 11:10 EA [id number]) OP-PT Balance Assessment Sitting Balance Static Sitting Balance Ability Normal Dynamic Sitting Balance Ability Normal Standing Balance Static Standing Balance Ability Good Dynamic Standing Balance Ability Fair Balance Tests Functional Reach Functional Reach Test 9 Functional Reach Impairment Rating 1 to <20% Impaired (Score 9) Single Limb Standing Single Limb- Right unable Single Limb- Left unable Semi-Tandem Standing Semi-Tandem Standing Balance Requires assist to position and last < 2 second Tandem Tandem Standing Unable Du Fall Scale Copyright Permission PT-OP-F Manual Assessment Start: 10/06/18 13:40 Freq: Status: Active Protocol: Document 10/06/18 17:35 EA (Rec: 10/07/18 11:10 EA [id number]) Manual Assessments Soft Tissue Assessment Soft Tissue Mobility Assessment Tightness to calf muscles, hip rotators, quads, hamstrings Joint Mobility Assessment Joint Mobility Assessment Normal TC joint mobility PT-OP-G Mobility & Gait Start: 10/06/18 13:40 Freq: Status: Active Protocol: Document 10/06/18 17:35 EA (Rec: 10/07/18 11:10 EA [id number]) OP Mobility Evaluation Bed Mobility Rolling Minimal difficulty but indep Supine to and from Sit Moderate difficulty but indep Transfers Sit to Stand Indep Bed to Chair Transfers indep Functional Movements Lifting and Carrying Indep Squats 45 deg Running Assessment unable OP Gait Assessment Gait Gait Assistance Required: Independent Able to Maintain Weight Bearing Status Yes During Gait Assistive Devices Assistive Device None Gait Deviations General Gait Pattern Antalgic Decreased Feet Clearance Wide Based Gait Comments Gait Comments Patient exhibits steppage gait with decreased WB to RLE Stair Climbing Evaluation Evaluation Level of Assist On Stairs Independent Devices Stair Climbing Assistive Devices Left Railing Right Railing Technique/Endurance Stair Climbing Direction Ascend and Descend Stair Climbing Technique Step to Step Number of Steps Climbed 12 Comments Stair Climbing Comments slow w/ step to step gait with the use of both HR PT-OP-J Posture/Palpation/Skin Start: 10/06/18 13:40 Freq: Status: Active Protocol: Document 10/06/18 17:35 EA (Rec: 10/07/18 11:10 EA [id number]) Posture Evaluation Comments Posture Comments Rounded shoulder with increased lumbar curves and slight hip flex (fair posture) Palpation Assessment Location One Palpation Location ant. mid TC joint, base of 1st metatarsal joint Palpation Findings Tenderness Palpation Details Grade 2/4 tenderness Skin Assessment Circumference Measurement 1 Location mid TC joint Comments L=26 ; R=28 (slight right angle swelling but no signs of edema) PT-OP-K Range of Motion Start: 10/06/18 13:40 Freq: Status: Active Protocol: Document 10/06/18 17:35 EA (Rec: 10/07/18 11:10 EA [id number]) Shoulder Goniometric Range of Motion Shoulder ROM Limitations Shoulder ROM Limitations Soft Tissue Tightness Muscle Weakness Comments Impaired left shoulder function with a history of shoulder surgery. Hip Goniometric Range of Motion Hip Left Active Flexion w/Knee Flexed 90 Extension 15 Internal Rotation 25 External Rotation 20 Right Active Flexion w/Knee Flexed 90 Extension 15 Abduction 45 Internal Rotation 25 External Rotation 15 Hip ROM Limitations Hip ROM Limitations Soft Tissue Tightness Knee Goniometric Range of Motion Knee Right Knee ROM WFL Yes Ankle and Foot Goniometric Range of Motion Ankle and Foot Right Active Dorsiflexion with Knee Flexed 10 Plantarflexion 45 Inversion 30 Eversion 20 Left Active Ankle/Foot ROM WFL Yes Dorsiflexion with Knee Flexed 20 Plantarflexion 45 Inversion 35 Eversion 25 PT-OP-L Special Tests Start: 10/06/18 13:40 Freq: Status: Active Protocol: Document 10/06/18 17:35 EA (Rec: 10/07/18 11:10 EA [id number]) Special Tests Foot/Ankle Special Tests Talor Tilt Test Results - PT-OP-M Strength Start: 10/06/18 13:40 Freq: Status: Active Protocol: Document 12/14/18 15:38 SAK (Rec: 12/14/18 16:16 SAK [id number]) Ankle/Foot Strength Ankle and Foot Manual Muscle Testing Right Dorsiflexion (L4) 3 Fair Plantarflexion (S1) 4- Good- Inversion 3+ Fair+ Eversion (S1) 3+ Fair+ Left Reason Not Measured WFL PT-OP-Q Treatments Start: 10/06/18 13:40 Freq: Status: Active Protocol: Document 12/16/18 15:24 SAK (Rec: 12/16/18 16:25 SAK [id number]) Cardio Equipment Recumbent Elliptical (Biodex) Duration (Minutes) 10 Resistance 3 Seat Position 6 Other LE's only last 5 min Gym Equipment Shuttle Balance Red Details N/W ANDRY, tandem Reps/Duration 5 min Comments balance and weight shifting fwd/bck, side/side Therapeutic Exercises Supine Exercises HC stretch Equipment Used manual Reps/Minutes 3x30, Sitting Exercises BAPS board Sitting Exercise Name ankle df/pf, inv/ev, circles Side right Equipment Used L4 3 way ankle Sitting Exercise Name inv, ever, DF Side right Resistance L2 TB Reps/Minutes 15x2 each Comments fatigue Standing Exercises shallow squats Reps/Minutes 10x Comments crepitus right knee HC stretch Side bilateral Equipment Used CARMINA Reps/Minutes 3 min Comments f/b isometric ankle DF Gait Training Gait Activity Wgt Shifting Description Motor relearning Surface firm level Treatment Focus Wgt shifting R & stepping with the R in proper position. Manual Therapy Treatment Joint Mobilizations talocrural Direction A/P Grade II Body Position Supine Comments right Taping right ankle Treatment Focus edema reduction Type of Tape Kinesio Tape Comments 2 fan strips (6 squares long) with I strip to anchor ends. PT-OP-R Modalities Start: 10/06/18 13:40 Freq: Status: Active Protocol: Document 12/16/18 15:24 [facility] (Rec: 12/16/18 16:25 [facility] [id number]) Electric Stimulation Electric Stimulation [place] Stimulation Body Location right ankle df Duration (Minutes) 10 Intensity 34 Contraction Type Normal Cycle 10/10 Ramp 2.0 Patient Position Hooklying Comments active ankle dorsiflexion when on Hot Pack/Cold Pack Treatment Cold Pack Location R ankle (CRYOCUFF), CP to L ankle Patient Position Hooklying Patient Tolerance Good Comments LE's elevated above heart on bolster and wedge. PT-OP-T Assessment and Plan Start: 10/06/18 13:40 Freq: Status: Active Protocol: Document 12/16/18 15:24 [facility] (Rec: 12/16/18 16:25 [facility] [id number]) Physical Therapy Assessment Goals Four Impairment Two fall incidence in the last 6 months Hand Ornament Maker Goal (LTG) Patient will report no fall in the next 4 wks 11/26/18 No recent fall LTG Duration goal met Three Impairment Impaired gait Hand Ornament Maker Goal (LTG) Patient increased R ankle DF strength by 1/2 -1 grade to improve gait. 12/14/18: improved by 1/2 grade LTG Duration 01/25/19 Two Impairment Impaired distance ambulation Prison Goal (LTG) Patient will ambulate > a block with no assistive device with improved gait 12/14/18: goal met NEW GOAL: patient able to walk community distances without assistive device with equal step length and weight shift mechanics and no LOB LTG Duration 01/25/19 One Impairment FAAM score 20/75 Hand Ornament Maker Goal (LTG) FAAM score of 40/75 12/14/18: goal progress to 31/75 LTG Duration 01/25/19 Assessment Summary Assessment Difficulty getting any muscle activation with [place] stim. Patient receptive to wearing tennis shoes instead of sandals next session and considering obtaining new AFO since old one doesn't fit well anymore. Physical Therapy Plan Frequency and Duration Frequency of Treatment 2x/Week Duration of Treatment 6 wks Plan of Care Start Date 12/14/18 Plan of Care End Date 01/25/19 Therapeutic Interventions Therapeutic Interventions Balance Training Gait Training Home Exercise Program Joint Mobilizations Manual Therapy Neuromuscular Re-education Patient/Caregiver Education Self-Care/Home Management Soft Tissue Mobilization Taping Therapeutic Exercises Modalities Cold Pack/Ice Massage Electric Stimulation Next Visit Focus/Plan Next Note Type Treatment Note Next Visit Plan Continue PT per POC
--- NOTE | 2018-12-21 16:27 | PT.OTN ---
Current Diagnoses Pain in right ankle and joints of right foot (12/21/18) Displaced fracture of lateral malleolus of left fibula, subsequent encounter for closed fracture with routine healing (12/21/18) Sprain of unspecified ligament of left ankle, subsequent encounter (12/21/18) Physical Therapy Treatment Note PT-OP-A Visit Information Start: 10/06/18 13:40 Freq: Status: Active Protocol: Document 12/21/18 15:26 SAK (Rec: 12/21/18 16:16 SAK [id number]) Out-Patient Physical Therapy Visit Information Visit Information Visit Type Treatment Note Visit Start Time 15:15 Visit Stop Time 16:15 Total Visit Minutes 60 Visit Number 16 Number of WOMEN'S ACTIVITIES ADVISER Visits 0 Evaluation Information Evaluation Date 10/06/18 PT-OP-B Current Condition Start: 10/06/18 13:40 Freq: Status: Active Protocol: Document 10/06/18 14:45 EA (Rec: 10/06/18 15:17 EA [id number]) Current Condition History of Current Condition Onset Date 07/17/2018 Current Complaints s/p right ankle sprain History of Current Condition Patient is a poor historian: Patient reports she tripped and fell at home and twisted her right ankle on July 17, 2018. Patient then went to [facility] on the same day and given pain meds and was on boot upon discharged. She stated saw her specialist and referred to PT and discharged using foot immobilzer two weeks ago. Medical reports identified and on September 30, 2018 that she underwent multiple joints diagnostic imaging with no significant fracture identified except with avulsion fracture at the base of the right big toe but requires further imaging. Patient is currently ambulating with no AD and states she has ankle brace but does not like to use it. Medical reports from patient clinic stated that she is clear for weight bearing as tolerated with the use of ankle brace and they are aware that patient is not compliant with recommended WB and AD. Prior Treatments and Tests Pain Medication, on a foot immobilizer until two weeks ago from todays date. Future Testing and Treatments Planned She will see her transition of care specialist on the second week of October/2018 for follow up. Treatment Goals Patient/Caregiver Goals Patient would like to increase right foot strength to improve walking. Prior Functional Status Baseline Function- ADL's Independent Baseline Function- Mobility Independent Baseline Function- Gait Gait difficulty due to right foot dropped with ability to walk > a block. Baseline Function- Work/School Patient is not currently working and is not on disability. Baseline Function- Other Patient able to perform light activities at home and she got help from her boyfriend and mother with heavy house chores . Current Functional Impairments (Reported) Functional Limitations- ADL's Unable to perform full house hold chores; laundry, outdoor errands and heavy tasks at home requires assistance. Personal care performed with difficulty Functional Limitations- Mobility/Gait Indep with out the use of AD in less than a block Functional Limitations- Work/School Not currently working Functional Limitations- Recreation/ Unable to do Hobbies Personal Factors Other Personal Factors That May Effect History of low back surgery, Therapy/Recovery Depression, 2 falls in the last 6 months with significant injury on last fall, Liver disease, seizure with last episode happen a year ago. PT-OP-C Subjective Start: 10/06/18 13:40 Freq: Status: Active Protocol: Document 12/21/18 15:26 SAK (Rec: 12/21/18 16:16 SAK [id number]) OP-PT Subjective Patient Comments Patient Comments Did mostly stretching exercises, not balance exercises over the weekend. PT-OP-D Balance Start: 10/06/18 13:40 Freq: Status: Active Protocol: Document 10/06/18 17:35 EA (Rec: 10/07/18 11:10 EA [id number]) OP-PT Balance Assessment Sitting Balance Static Sitting Balance Ability Normal Dynamic Sitting Balance Ability Normal Standing Balance Static Standing Balance Ability Good Dynamic Standing Balance Ability Fair Balance Tests Functional Reach Functional Reach Test 9 Functional Reach Impairment Rating 1 to <20% Impaired (Score 9) Single Limb Standing Single Limb- Right unable Single Limb- Left unable Semi-Tandem Standing Semi-Tandem Standing Balance Requires assist to position and last < 2 second Tandem Tandem Standing Unable Du Fall Scale Copyright Permission PT-OP-F Manual Assessment Start: 10/06/18 13:40 Freq: Status: Active Protocol: Document 10/06/18 17:35 EA (Rec: 10/07/18 11:10 EA [id number]) Manual Assessments Soft Tissue Assessment Soft Tissue Mobility Assessment Tightness to calf muscles, hip rotators, quads, hamstrings Joint Mobility Assessment Joint Mobility Assessment Normal TC joint mobility PT-OP-G Mobility & Gait Start: 10/06/18 13:40 Freq: Status: Active Protocol: Document 10/06/18 17:35 EA (Rec: 10/07/18 11:10 EA [id number]) OP Mobility Evaluation Bed Mobility Rolling Minimal difficulty but indep Supine to and from Sit Moderate difficulty but indep Transfers Sit to Stand Indep Bed to Chair Transfers indep Functional Movements Lifting and Carrying Indep Squats 45 deg Running Assessment unable OP Gait Assessment Gait Gait Assistance Required: Independent Able to Maintain Weight Bearing Status Yes During Gait Assistive Devices Assistive Device None Gait Deviations General Gait Pattern Antalgic Decreased Feet Clearance Wide Based Gait Comments Gait Comments Patient exhibits steppage gait with decreased WB to RLE Stair Climbing Evaluation Evaluation Level of Assist On Stairs Independent Devices Stair Climbing Assistive Devices Left Railing Right Railing Technique/Endurance Stair Climbing Direction Ascend and Descend Stair Climbing Technique Step to Step Number of Steps Climbed 12 Comments Stair Climbing Comments slow w/ step to step gait with the use of both HR PT-OP-J Posture/Palpation/Skin Start: 10/06/18 13:40 Freq: Status: Active Protocol: Document 10/06/18 17:35 EA (Rec: 10/07/18 11:10 EA [id number]) Posture Evaluation Comments Posture Comments Rounded shoulder with increased lumbar curves and slight hip flex (fair posture) Palpation Assessment Location One Palpation Location ant. mid TC joint, base of 1st metatarsal joint Palpation Findings Tenderness Palpation Details Grade 2/4 tenderness Skin Assessment Circumference Measurement 1 Location mid TC joint Comments L=26 ; R=28 (slight right angle swelling but no signs of edema) PT-OP-K Range of Motion Start: 10/06/18 13:40 Freq: Status: Active Protocol: Document 10/06/18 17:35 EA (Rec: 10/07/18 11:10 EA [id number]) Shoulder Goniometric Range of Motion Shoulder ROM Limitations Shoulder ROM Limitations Soft Tissue Tightness Muscle Weakness Comments Impaired left shoulder function with a history of shoulder surgery. Hip Goniometric Range of Motion Hip Left Active Flexion w/Knee Flexed 90 Extension 15 Internal Rotation 25 External Rotation 20 Right Active Flexion w/Knee Flexed 90 Extension 15 Abduction 45 Internal Rotation 25 External Rotation 15 Hip ROM Limitations Hip ROM Limitations Soft Tissue Tightness Knee Goniometric Range of Motion Knee Right Knee ROM WFL Yes Ankle and Foot Goniometric Range of Motion Ankle and Foot Right Active Dorsiflexion with Knee Flexed 10 Plantarflexion 45 Inversion 30 Eversion 20 Left Active Ankle/Foot ROM WFL Yes Dorsiflexion with Knee Flexed 20 Plantarflexion 45 Inversion 35 Eversion 25 PT-OP-L Special Tests Start: 10/06/18 13:40 Freq: Status: Active Protocol: Document 10/06/18 17:35 EA (Rec: 10/07/18 11:10 EA [id number]) Special Tests Foot/Ankle Special Tests Talor Tilt Test Results - PT-OP-M Strength Start: 10/06/18 13:40 Freq: Status: Active Protocol: Document 12/14/18 15:38 SAK (Rec: 12/14/18 16:16 SAK [id number]) Ankle/Foot Strength Ankle and Foot Manual Muscle Testing Right Dorsiflexion (L4) 3 Fair Plantarflexion (S1) 4- Good- Inversion 3+ Fair+ Eversion (S1) 3+ Fair+ Left Reason Not Measured WFL PT-OP-Q Treatments Start: 10/06/18 13:40 Freq: Status: Active Protocol: Document 12/21/18 15:26 SAK (Rec: 12/21/18 16:16 SAK [id number]) Cardio Equipment Recumbent Elliptical (Biodex) Duration (Minutes) 10 Resistance 3 Seat Position 6 Other LE's only last 5 min Gym Equipment Shuttle Balance Red Details N/W ANDRY, tandem Reps/Duration 5 min Comments balance and weight shifting fwd/bck, side/side Therapeutic Exercises Supine Exercises HC stretch Equipment Used manual Reps/Minutes 3x30, Sitting Exercises BAPS board Sitting Exercise Name ankle df/pf, inv/ev, circles Side right Equipment Used L4 3 way ankle Sitting Exercise Name inv, ever, DF Side right Resistance L2 TB Reps/Minutes 15x2 each Comments fatigue Standing Exercises HC stretch Side bilateral Equipment Used CARMINA Reps/Minutes 3 min Comments f/b isometric ankle DF Gait Training Gait Activity gait without device Level of Assistance verbal cues Comments mirror for visual feedback. Manual Therapy Treatment Joint Mobilizations talocrural Direction A/P Grade II Body Position Supine Comments right Taping right ankle Treatment Focus edema reduction Type of Tape Kinesio Tape Comments 2 fan strips (6 squares long) with I strip to anchor ends. PT-OP-R Modalities Start: 10/06/18 13:40 Freq: Status: Active Protocol: Document 12/21/18 15:26 [facility] (Rec: 12/21/18 16:27 [facility] [id number]) Hot Pack/Cold Pack Treatment Cold Pack Location R ankle (CRYOCUFF), CP to L ankle Patient Position Hooklying Patient Tolerance Good Comments LE's elevated above heart on bolster and wedge. PT-OP-T Assessment and Plan Start: 10/06/18 13:40 Freq: Status: Active Protocol: Document 12/21/18 15:26 [facility] (Rec: 12/21/18 16:27 [facility] [id number]) Physical Therapy Assessment Goals Four Impairment Two fall incidence in the last 6 months Correction Goal (LTG) Patient will report no fall in the next 4 wks 11/26/18 No recent fall LTG Duration goal met Three Impairment Impaired gait Correction Goal (LTG) Patient increased R ankle DF strength by 1/2 -1 grade to improve gait. 12/14/18: improved by 1/2 grade LTG Duration 01/25/19 Two Impairment Impaired distance ambulation Electrical Tests Supervisor Goal (LTG) Patient will ambulate > a block with no assistive device with improved gait 12/14/18: goal met NEW GOAL: patient able to walk community distances without assistive device with equal step length and weight shift mechanics and no LOB LTG Duration 01/25/19 One Impairment FAAM score 20/75 Correction Goal (LTG) FAAM score of 40/75 12/14/18: goal progress to 31/75 LTG Duration 01/25/19 Assessment Summary Assessment Patient wore tennis shoes to PT, able to self-correct gait with visual feedback. Minimal walking or activity level at home; states family doesn't trust her to be mobile on her own. agrees that this limits her progress. Physical Therapy Plan Frequency and Duration Frequency of Treatment 2x/Week Duration of Treatment 6 wks Plan of Care Start Date 12/14/18 Plan of Care End Date 01/25/19 Therapeutic Interventions Therapeutic Interventions Balance Training Gait Training Home Exercise Program Joint Mobilizations Manual Therapy Neuromuscular Re-education Patient/Caregiver Education Self-Care/Home Management Soft Tissue Mobilization Taping Therapeutic Exercises Modalities Cold Pack/Ice Massage Electric Stimulation Next Visit Focus/Plan Next Note Type Treatment Note Next Visit Plan Continue PT per POC
--- NOTE | 2018-12-28 16:16 | PT.OTN ---
Current Diagnoses Pain in right ankle and joints of right foot (12/28/18) Displaced fracture of lateral malleolus of left fibula, subsequent encounter for closed fracture with routine healing (12/28/18) Sprain of unspecified ligament of left ankle, subsequent encounter (12/28/18) Physical Therapy Treatment Note PT-OP-A Visit Information Start: 10/06/18 13:40 Freq: Status: Active Protocol: Document 12/28/18 15:19 SAK (Rec: 12/28/18 15:59 SAK [id number]) Out-Patient Physical Therapy Visit Information Visit Information Visit Type Treatment Note Visit Start Time 15:13 Visit Stop Time 16:12 Total Visit Minutes 59 Visit Number 18 Number of STOCKBROKING DEALER Visits 0 Evaluation Information Evaluation Date 10/06/18 PT-OP-B Current Condition Start: 10/06/18 13:40 Freq: Status: Active Protocol: Document 10/06/18 14:45 EA (Rec: 10/06/18 15:17 EA [id number]) Current Condition History of Current Condition Onset Date 07/17/2018 Current Complaints s/p right ankle sprain History of Current Condition Patient is a poor historian: Patient reports she tripped and fell at home and twisted her right ankle on July 17, 2018. Patient then went to [facility] same day and given pain meds and was on boot upon discharged. She stated saw her specialist and referred to PT and discharged using foot immobilzer two weeks ago. Medical reports identified and on September 30, 2018 that she underwent multiple joints diagnostic imaging with no significant fracture identified except with avulsion fracture at the base of the right big toe but requires further imaging. Patient is currently ambulating with no AD and states she has ankle brace but does not like to use it. Medical reports from patient clinic stated that she is clear for weight bearing as tolerated with the use of ankle brace and they are aware that patient is not compliant with recommended WB and AD. Prior Treatments and Tests Pain Medication, on a foot immobilizer until two weeks ago from todays date. Future Testing and Treatments Planned She will see her legal billing specialist on the second week of October/2018 for follow up. Treatment Goals Patient/Caregiver Goals Patient would like to increase right foot strength to improve walking. Prior Functional Status Baseline Function- ADL's Independent Baseline Function- Mobility Independent Baseline Function- Gait Gait difficulty due to right foot dropped with ability to walk > a block. Baseline Function- Work/School Patient is not currently working and is not on disability. Baseline Function- Other Patient able to perform light activities at home and she got help from her boyfriend and mother with heavy house chores . Current Functional Impairments (Reported) Functional Limitations- ADL's Unable to perform full house hold chores; laundry, outdoor errands and heavy tasks at home requires assistance. Personal care performed with difficulty Functional Limitations- Mobility/Gait Indep with out the use of AD in less than a block Functional Limitations- Work/School Not currently working Functional Limitations- Recreation/ Unable to do Hobbies Personal Factors Other Personal Factors That May Effect History of low back surgery, Therapy/Recovery Depression, 2 falls in the last 6 months with significant injury on last fall, Liver disease, seizure with last episode happen a year ago. PT-OP-C Subjective Start: 10/06/18 13:40 Freq: Status: Active Protocol: Document 12/28/18 15:19 SAK (Rec: 12/28/18 15:59 SAK [id number]) OP-PT Subjective Patient Comments Patient Comments Did a little more walking over weekend, not much. Feels weak. Kinesiotape helpful PT-OP-D Balance Start: 10/06/18 13:40 Freq: Status: Active Protocol: Document 10/06/18 17:35 EA (Rec: 10/07/18 11:10 EA [id number]) OP-PT Balance Assessment Sitting Balance Static Sitting Balance Ability Normal Dynamic Sitting Balance Ability Normal Standing Balance Static Standing Balance Ability Good Dynamic Standing Balance Ability Fair Balance Tests Functional Reach Functional Reach Test 9 Functional Reach Impairment Rating 1 to <20% Impaired (Score 9) Single Limb Standing Single Limb- Right unable Single Limb- Left unable Semi-Tandem Standing Semi-Tandem Standing Balance Requires assist to position and last < 2 second Tandem Tandem Standing Unable Du Fall Scale Copyright Permission PT-OP-F Manual Assessment Start: 10/06/18 13:40 Freq: Status: Active Protocol: Document 10/06/18 17:35 EA (Rec: 10/07/18 11:10 EA [id number]) Manual Assessments Soft Tissue Assessment Soft Tissue Mobility Assessment Tightness to calf muscles, hip rotators, quads, hamstrings Joint Mobility Assessment Joint Mobility Assessment Normal TC joint mobility PT-OP-G Mobility & Gait Start: 10/06/18 13:40 Freq: Status: Active Protocol: Document 10/06/18 17:35 EA (Rec: 10/07/18 11:10 EA [id number]) OP Mobility Evaluation Bed Mobility Rolling Minimal difficulty but indep Supine to and from Sit Moderate difficulty but indep Transfers Sit to Stand Indep Bed to Chair Transfers indep Functional Movements Lifting and Carrying Indep Squats 45 deg Running Assessment unable OP Gait Assessment Gait Gait Assistance Required: Independent Able to Maintain Weight Bearing Status Yes During Gait Assistive Devices Assistive Device None Gait Deviations General Gait Pattern Antalgic Decreased Feet Clearance Wide Based Gait Comments Gait Comments Patient exhibits steppage gait with decreased WB to RLE Stair Climbing Evaluation Evaluation Level of Assist On Stairs Independent Devices Stair Climbing Assistive Devices Left Railing Right Railing Technique/Endurance Stair Climbing Direction Ascend and Descend Stair Climbing Technique Step to Step Number of Steps Climbed 12 Comments Stair Climbing Comments slow w/ step to step gait with the use of both HR PT-OP-J Posture/Palpation/Skin Start: 10/06/18 13:40 Freq: Status: Active Protocol: Document 10/06/18 17:35 EA (Rec: 10/07/18 11:10 EA [id number]) Posture Evaluation Comments Posture Comments Rounded shoulder with increased lumbar curves and slight hip flex (fair posture) Palpation Assessment Location One Palpation Location ant. mid TC joint, base of 1st metatarsal joint Palpation Findings Tenderness Palpation Details Grade 2/4 tenderness Skin Assessment Circumference Measurement 1 Location mid TC joint Comments L=26 ; R=28 (slight right angle swelling but no signs of edema) PT-OP-K Range of Motion Start: 10/06/18 13:40 Freq: Status: Active Protocol: Document 10/06/18 17:35 EA (Rec: 10/07/18 11:10 EA [id number]) Shoulder Goniometric Range of Motion Shoulder ROM Limitations Shoulder ROM Limitations Soft Tissue Tightness Muscle Weakness Comments Impaired left shoulder function with a history of shoulder surgery. Hip Goniometric Range of Motion Hip Left Active Flexion w/Knee Flexed 90 Extension 15 Internal Rotation 25 External Rotation 20 Right Active Flexion w/Knee Flexed 90 Extension 15 Abduction 45 Internal Rotation 25 External Rotation 15 Hip ROM Limitations Hip ROM Limitations Soft Tissue Tightness Knee Goniometric Range of Motion Knee Right Knee ROM WFL Yes Ankle and Foot Goniometric Range of Motion Ankle and Foot Right Active Dorsiflexion with Knee Flexed 10 Plantarflexion 45 Inversion 30 Eversion 20 Left Active Ankle/Foot ROM WFL Yes Dorsiflexion with Knee Flexed 20 Plantarflexion 45 Inversion 35 Eversion 25 PT-OP-L Special Tests Start: 10/06/18 13:40 Freq: Status: Active Protocol: Document 10/06/18 17:35 EA (Rec: 10/07/18 11:10 EA [id number]) Special Tests Foot/Ankle Special Tests Talor Tilt Test Results - PT-OP-M Strength Start: 10/06/18 13:40 Freq: Status: Active Protocol: Document 12/14/18 15:38 SAK (Rec: 12/14/18 16:16 SAK [id number]) Ankle/Foot Strength Ankle and Foot Manual Muscle Testing Right Dorsiflexion (L4) 3 Fair Plantarflexion (S1) 4- Good- Inversion 3+ Fair+ Eversion (S1) 3+ Fair+ Left Reason Not Measured WFL PT-OP-Q Treatments Start: 10/06/18 13:40 Freq: Status: Active Protocol: Document 12/28/18 15:19 SAK (Rec: 12/28/18 15:59 SAK [id number]) Cardio Equipment Recumbent Elliptical (BiodNimbuzz) Duration (Minutes) 10 Resistance 3 Seat Position 6 Other LE's only last 5 min Gym Equipment Shuttle Balance Red Details N/W ANDRY, tandem Reps/Duration 6 Comments balance and weight shifting fwd/bck, side/side Therapeutic Exercises Supine Exercises HC stretch Equipment Used manual Reps/Minutes 3x30, Sitting Exercises 3 way ankle Sitting Exercise Name inv, ever, DF Side right Resistance L2 TB Reps/Minutes 15x2 each Comments assist for full df, then eccentric Standing Exercises BOSU lunge Reps/Minutes 10x Comments unil UE support HC stretch Side bilateral Equipment Used CARMINA Reps/Minutes 3 min Comments f/b isometric ankle DF Gait Training Gait Activity gait without device Level of Assistance verbal cues Comments mirror for visual feedback. Cues for heelstrike, push-off, decrease lateral sway. Manual Therapy Treatment Joint Mobilizations talocrural Direction A/P Grade II Body Position Supine Comments right Taping right ankle Treatment Focus edema reduction Type of Tape Kinesio Tape Comments 2 fan strips (6 squares long) with I strip to anchor ends. PT-OP-R Modalities Start: 10/06/18 13:40 Freq: Status: Active Protocol: Document 12/28/18 15:19 [facility] (Rec: 12/28/18 15:59 [facility] [id number]) Hot Pack/Cold Pack Treatment Cold Pack Location R ankle (CRYOCUFF), CP to L ankle Patient Position Hooklying Patient Tolerance Good Comments LE's elevated above heart on bolster and wedge. PT-OP-T Assessment and Plan Start: 10/06/18 13:40 Freq: Status: Active Protocol: Document 12/28/18 15:19 [facility] (Rec: 12/28/18 15:59 [facility] [id number]) Physical Therapy Assessment Goals Four Impairment Two fall incidence in the last 6 months Residential Goal (LTG) Patient will report no fall in the next 4 wks 11/26/18 No recent fall LTG Duration goal met Three Impairment Impaired gait Residential Goal (LTG) Patient increased R ankle DF strength by 1/2 -1 grade to improve gait. 12/14/18: improved by 1/2 grade LTG Duration 01/25/19 Two Impairment Impaired distance ambulation Hspt Tutor Goal (LTG) Patient will ambulate > a block with no assistive device with improved gait 12/14/18: goal met NEW GOAL: patient able to walk community distances without assistive device with equal step length and weight shift mechanics and no LOB LTG Duration 01/25/19 One Impairment FAAM score 20/75 Residential Goal (LTG) FAAM score of 40/75 12/14/18: goal progress to 31/75 LTG Duration 01/25/19 Assessment Summary Assessment Needs encouragement to increase activity level, fatigues quickly. Physical Therapy Plan Frequency and Duration Frequency of Treatment 2x/Week Duration of Treatment 6 wks Plan of Care Start Date 12/14/18 Plan of Care End Date 01/25/19 Therapeutic Interventions Therapeutic Interventions Balance Training Gait Training Home Exercise Program Joint Mobilizations Manual Therapy Neuromuscular Re-education Patient/Caregiver Education Self-Care/Home Management Soft Tissue Mobilization Taping Therapeutic Exercises Modalities Cold Pack/Ice Massage Electric Stimulation Next Visit Focus/Plan Next Note Type Treatment Note Next Visit Plan 3 further PT visits (prior error regarding scheduled number of visits). Transition toward independent HEP, self- care. Encourage increased walking; start next session with outdoor gait training.
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
--- NOTE | 2019-01-04 16:21 | PT.OTN ---
Current Diagnoses Pain in right ankle and joints of right foot (01/04/19) Displaced fracture of lateral malleolus of left fibula, subsequent encounter for closed fracture with routine healing (01/04/19) Sprain of unspecified ligament of left ankle, subsequent encounter (01/04/19) Physical Therapy Treatment Note PT-OP-A Visit Information Start: 10/06/18 13:40 Freq: Status: Active Protocol: Document 01/04/19 15:15 SAK (Rec: 01/04/19 16:21 SAK [id number]) Out-Patient Physical Therapy Visit Information Visit Information Visit Type Treatment Note Visit Start Time 16:08 Visit Stop Time 16:09 Total Visit Minutes 58 Visit Number 20 Number of DENTAL SCHEDULER Visits 0 Evaluation Information Evaluation Date 10/06/18 PT-OP-B Current Condition Start: 10/06/18 13:40 Freq: Status: Active Protocol: Document 10/06/18 14:45 EA (Rec: 10/06/18 15:17 EA [id number]) Current Condition History of Current Condition Onset Date 07/17/2018 Current Complaints s/p right ankle sprain History of Current Condition Patient is a poor historian: Patient reports she tripped and fell at home and twisted her right ankle on July 17, 2018. Patient then went to [facility] same day and given pain meds and was on boot upon discharged. She stated saw her specialist and referred to PT and discharged using foot immobilzer two weeks ago. Medical reports identified and on September 30, 2018 that she underwent multiple joints diagnostic imaging with no significant fracture identified except with avulsion fracture at the base of the right big toe but requires further imaging. Patient is currently ambulating with no AD and states she has ankle brace but does not like to use it. Medical reports from patient clinic stated that she is clear for weight bearing as tolerated with the use of ankle brace and they are aware that patient is not compliant with recommended WB and AD. Prior Treatments and Tests Pain Medication, on a foot immobilizer until two weeks ago from todays date. Future Testing and Treatments Planned She will see her publication specialist on the second week of October/2018 for follow up. Treatment Goals Patient/Caregiver Goals Patient would like to increase right foot strength to improve walking. Prior Functional Status Baseline Function- ADL's Independent Baseline Function- Mobility Independent Baseline Function- Gait Gait difficulty due to right foot dropped with ability to walk > a block. Baseline Function- Work/School Patient is not currently working and is not on disability. Baseline Function- Other Patient able to perform light activities at home and she got help from her boyfriend and mother with heavy house chores . Current Functional Impairments (Reported) Functional Limitations- ADL's Unable to perform full house hold chores; laundry, outdoor errands and heavy tasks at home requires assistance. Personal care performed with difficulty Functional Limitations- Mobility/Gait Indep with out the use of AD in less than a block Functional Limitations- Work/School Not currently working Functional Limitations- Recreation/ Unable to do Hobbies Personal Factors Other Personal Factors That May Effect History of low back surgery, Therapy/Recovery Depression, 2 falls in the last 6 months with significant injury on last fall, Liver disease, seizure with last episode happen a year ago. PT-OP-C Subjective Start: 10/06/18 13:40 Freq: Status: Active Protocol: Document 01/04/19 15:15 SAK (Rec: 01/04/19 16:21 SAK [id number]) OP-PT Subjective Patient Comments Patient Comments States she got her foot caught and hurt the outside of her foot by her little toe, bruised and sore, has been icing. PT-OP-D Balance Start: 10/06/18 13:40 Freq: Status: Active Protocol: Document 10/06/18 17:35 EA (Rec: 10/07/18 11:10 EA [id number]) OP-PT Balance Assessment Sitting Balance Static Sitting Balance Ability Normal Dynamic Sitting Balance Ability Normal Standing Balance Static Standing Balance Ability Good Dynamic Standing Balance Ability Fair Balance Tests Functional Reach Functional Reach Test 9 Functional Reach Impairment Rating 1 to <20% Impaired (Score 9) Single Limb Standing Single Limb- Right unable Single Limb- Left unable Semi-Tandem Standing Semi-Tandem Standing Balance Requires assist to position and last < 2 second Tandem Tandem Standing Unable Du Fall Scale Copyright Permission PT-OP-F Manual Assessment Start: 10/06/18 13:40 Freq: Status: Active Protocol: Document 10/06/18 17:35 EA (Rec: 10/07/18 11:10 EA [id number]) Manual Assessments Soft Tissue Assessment Soft Tissue Mobility Assessment Tightness to calf muscles, hip rotators, quads, hamstrings Joint Mobility Assessment Joint Mobility Assessment Normal TC joint mobility PT-OP-G Mobility & Gait Start: 10/06/18 13:40 Freq: Status: Active Protocol: Document 10/06/18 17:35 EA (Rec: 10/07/18 11:10 EA [id number]) OP Mobility Evaluation Bed Mobility Rolling Minimal difficulty but indep Supine to and from Sit Moderate difficulty but indep Transfers Sit to Stand Indep Bed to Chair Transfers indep Functional Movements Lifting and Carrying Indep Squats 45 deg Running Assessment unable OP Gait Assessment Gait Gait Assistance Required: Independent Able to Maintain Weight Bearing Status Yes During Gait Assistive Devices Assistive Device None Gait Deviations General Gait Pattern Antalgic Decreased Feet Clearance Wide Based Gait Comments Gait Comments Patient exhibits steppage gait with decreased WB to RLE Stair Climbing Evaluation Evaluation Level of Assist On Stairs Independent Devices Stair Climbing Assistive Devices Left Railing Right Railing Technique/Endurance Stair Climbing Direction Ascend and Descend Stair Climbing Technique Step to Step Number of Steps Climbed 12 Comments Stair Climbing Comments slow w/ step to step gait with the use of both HR PT-OP-J Posture/Palpation/Skin Start: 10/06/18 13:40 Freq: Status: Active Protocol: Document 10/06/18 17:35 EA (Rec: 10/07/18 11:10 EA [id number]) Posture Evaluation Comments Posture Comments Rounded shoulder with increased lumbar curves and slight hip flex (fair posture) Palpation Assessment Location One Palpation Location ant. mid TC joint, base of 1st metatarsal joint Palpation Findings Tenderness Palpation Details Grade 2/4 tenderness Skin Assessment Circumference Measurement 1 Location mid TC joint Comments L=26 ; R=28 (slight right angle swelling but no signs of edema) PT-OP-K Range of Motion Start: 10/06/18 13:40 Freq: Status: Active Protocol: Document 10/06/18 17:35 EA (Rec: 10/07/18 11:10 EA [id number]) Shoulder Goniometric Range of Motion Shoulder ROM Limitations Shoulder ROM Limitations Soft Tissue Tightness Muscle Weakness Comments Impaired left shoulder function with a history of shoulder surgery. Hip Goniometric Range of Motion Hip Left Active Flexion w/Knee Flexed 90 Extension 15 Internal Rotation 25 External Rotation 20 Right Active Flexion w/Knee Flexed 90 Extension 15 Abduction 45 Internal Rotation 25 External Rotation 15 Hip ROM Limitations Hip ROM Limitations Soft Tissue Tightness Knee Goniometric Range of Motion Knee Right Knee ROM WFL Yes Ankle and Foot Goniometric Range of Motion Ankle and Foot Right Active Dorsiflexion with Knee Flexed 10 Plantarflexion 45 Inversion 30 Eversion 20 Left Active Ankle/Foot ROM WFL Yes Dorsiflexion with Knee Flexed 20 Plantarflexion 45 Inversion 35 Eversion 25 PT-OP-L Special Tests Start: 10/06/18 13:40 Freq: Status: Active Protocol: Document 10/06/18 17:35 EA (Rec: 10/07/18 11:10 EA [id number]) Special Tests Foot/Ankle Special Tests Talor Tilt Test Results - PT-OP-M Strength Start: 10/06/18 13:40 Freq: Status: Active Protocol: Document 12/14/18 15:38 SAK (Rec: 12/14/18 16:16 SAK [id number]) Ankle/Foot Strength Ankle and Foot Manual Muscle Testing Right Dorsiflexion (L4) 3 Fair Plantarflexion (S1) 4- Good- Inversion 3+ Fair+ Eversion (S1) 3+ Fair+ Left Reason Not Measured WFL PT-OP-Q Treatments Start: 10/06/18 13:40 Freq: Status: Active Protocol: Document 01/04/19 15:15 SAK (Rec: 01/04/19 16:21 SAK [id number]) Cardio Equipment Recumbent Elliptical ([employer]) Duration (Minutes) 10 Resistance 4 Seat Position 6 Other LE's only last 5 min Gym Equipment Shuttle Balance Red Details N/W ANDRY, tandem Reps/Duration 6 min Comments balance and weight shifting fwd/bck, side/side Therapeutic Exercises Supine Exercises HC stretch Equipment Used manual Reps/Minutes 2x30, Sitting Exercises 3 way ankle Sitting Exercise Name inv, ever, DF Side right Reps/Minutes 15x2 each Comments assist for full df, then eccentric Standing Exercises sidestepping Resistance L1 TB Reps/Minutes 2 min BOSU lunge Reps/Minutes 10x Comments unil UE support HC stretch Side bilateral Equipment Used CARMINA Reps/Minutes 3 min Comments f/b isometric ankle DF Gait Training Gait Activity gait without device Level of Assistance verbal cues Comments mirror for visual feedback. Cues for heelstrike, push-off, decrease lateral sway. Wgt Shifting Description Motor relearning Surface firm level Treatment Focus Wgt shifting R & stepping with the R in proper position. Manual Therapy Treatment Joint Mobilizations talocrural Direction A/P Grade II Body Position Supine Comments right PT-OP-R Modalities Start: 10/06/18 13:40 Freq: Status: Active Protocol: Document 01/04/19 15:15 [facility] (Rec: 01/04/19 16:21 [facility] [id number]) Hot Pack/Cold Pack Treatment Cold Pack Location R ankle (CRYOCUFF), CP to L ankle Patient Position Hooklying Patient Tolerance Good Comments LE's elevated above heart on bolster and wedge. PT-OP-T Assessment and Plan Start: 10/06/18 13:40 Freq: Status: Active Protocol: Document 01/04/19 15:15 [facility] (Rec: 01/04/19 16:21 [facility] [id number]) Physical Therapy Assessment Goals Four Impairment Two fall incidence in the last 6 months Intermodal Owner Operator Truck Driver Goal (LTG) Patient will report no fall in the next 4 wks 11/26/18 No recent fall LTG Duration goal met Three Impairment Impaired gait Inter[employer] Owner Operator Truck Driver Goal (LTG) Patient increased R ankle DF strength by 1/2 -1 grade to improve gait. 12/14/18: improved by 1/2 grade LTG Duration 01/25/19 Two Impairment Impaired distance ambulation Shelter Goal (LTG) Patient will ambulate > a block with no assistive device with improved gait 12/14/18: goal met NEW GOAL: patient able to walk community distances without assistive device with equal step length and weight shift mechanics and no LOB LTG Duration 01/25/19 One Impairment FAAM score 20/75 [employer] Owner Operator Truck Driver Goal (LTG) FAAM score of 40/75 12/14/18: goal progress to 31/75 LTG Duration 01/25/19 Assessment Summary Assessment Increased swelling right foot today after catching while walking but able to tolerate ther ex. Physical Therapy Plan Frequency and Duration Frequency of Treatment 2x/Week Duration of Treatment 6 wks Plan of Care Start Date 12/14/18 Plan of Care End Date 01/25/19 Therapeutic Interventions Therapeutic Interventions Balance Training Gait Training Home Exercise Program Joint Mobilizations Manual Therapy Neuromuscular Re-education Patient/Caregiver Education Self-Care/Home Management Soft Tissue Mobilization Taping Therapeutic Exercises Modalities Cold Pack/Ice Massage Electric Stimulation Next Visit Focus/Plan Next Note Type Treatment Note Next Visit Plan 1 further PT visit at this time, then transition to independent HEP and self care.
--- NOTE | 2019-01-06 16:07 | PT.OTN ---
Current Diagnoses Pain in right ankle and joints of right foot (01/06/19) Displaced fracture of lateral malleolus of left fibula, subsequent encounter for closed fracture with routine healing (01/06/19) Sprain of unspecified ligament of left ankle, subsequent encounter (01/06/19) Physical Therapy Treatment Note PT-OP-A Visit Information Start: 10/06/18 13:40 Freq: Status: Active Protocol: Document 01/06/19 15:07 SAK (Rec: 01/06/19 15:58 SAK [id number]) Out-Patient Physical Therapy Visit Information Visit Information Visit Type Treatment Note Visit Start Time 15:07 Visit Stop Time 16:07 Total Visit Minutes 60 Visit Number 21 Number of PROVIDER RELATIONS SPECIALIST Visits 0 Evaluation Information Evaluation Date 10/06/18 PT-OP-B Current Condition Start: 10/06/18 13:40 Freq: Status: Active Protocol: Document 10/06/18 14:45 EA (Rec: 10/06/18 15:17 EA [id number]) Current Condition History of Current Condition Onset Date 07/17/2018 Current Complaints s/p right ankle sprain History of Current Condition Patient is a poor historian: Patient reports she tripped and fell at home and twisted her right ankle on July 17, 2018. Patient then went to [facility] the same day and given pain meds and was on boot upon discharged. She stated saw her specialist and referred to PT and discharged using foot immobilzer two weeks ago. Medical reports identified and on September 30, 2018 that she underwent multiple joints diagnostic imaging with no significant fracture identified except with avulsion fracture at the base of the right big toe but requires further imaging. Patient is currently ambulating with no AD and states she has ankle brace but does not like to use it. Medical reports from patient clinic stated that she is clear for weight bearing as tolerated with the use of ankle brace and they are aware that patient is not compliant with recommended WB and AD. Prior Treatments and Tests Pain Medication, on a foot immobilizer until two weeks ago from todays date. Future Testing and Treatments Planned She will see her distribution specialist on the second week of October/2018 for follow up. Treatment Goals Patient/Caregiver Goals Patient would like to increase right foot strength to improve walking. Prior Functional Status Baseline Function- ADL's Independent Baseline Function- Mobility Independent Baseline Function- Gait Gait difficulty due to right foot dropped with ability to walk > a block. Baseline Function- Work/School Patient is not currently working and is not on disability. Baseline Function- Other Patient able to perform light activities at home and she got help from her boyfriend and mother with heavy house chores . Current Functional Impairments (Reported) Functional Limitations- ADL's Unable to perform full house hold chores; laundry, outdoor errands and heavy tasks at home requires assistance. Personal care performed with difficulty Functional Limitations- Mobility/Gait Indep with out the use of AD in less than a block Functional Limitations- Work/School Not currently working Functional Limitations- Recreation/ Unable to do Hobbies Personal Factors Other Personal Factors That May Effect History of low back surgery, Therapy/Recovery Depression, 2 falls in the last 6 months with significant injury on last fall, Liver disease, seizure with last episode happen a year ago. PT-OP-C Subjective Start: 10/06/18 13:40 Freq: Status: Active Protocol: Document 01/06/19 15:07 SAK (Rec: 01/06/19 15:58 SAK [id number]) OP-PT Subjective Patient Comments Patient Comments Slow start to the day with her foot today, foot not wanting to do what I want it to do. Went on short walk yesterday. No increase in pain after last PT session PT-OP-D Balance Start: 10/06/18 13:40 Freq: Status: Active Protocol: Document 10/06/18 17:35 EA (Rec: 10/07/18 11:10 EA [id number]) OP-PT Balance Assessment Sitting Balance Static Sitting Balance Ability Normal Dynamic Sitting Balance Ability Normal Standing Balance Static Standing Balance Ability Good Dynamic Standing Balance Ability Fair Balance Tests Functional Reach Functional Reach Test 9 Functional Reach Impairment Rating 1 to <20% Impaired (Score 9) Single Limb Standing Single Limb- Right unable Single Limb- Left unable Semi-Tandem Standing Semi-Tandem Standing Balance Requires assist to position and last < 2 second Tandem Tandem Standing Unable Du Fall Scale Copyright Permission PT-OP-F Manual Assessment Start: 10/06/18 13:40 Freq: Status: Active Protocol: Document 10/06/18 17:35 EA (Rec: 10/07/18 11:10 EA [id number]) Manual Assessments Soft Tissue Assessment Soft Tissue Mobility Assessment Tightness to calf muscles, hip rotators, quads, hamstrings Joint Mobility Assessment Joint Mobility Assessment Normal TC joint mobility PT-OP-G Mobility & Gait Start: 10/06/18 13:40 Freq: Status: Active Protocol: Document 10/06/18 17:35 EA (Rec: 10/07/18 11:10 EA [id number]) OP Mobility Evaluation Bed Mobility Rolling Minimal difficulty but indep Supine to and from Sit Moderate difficulty but indep Transfers Sit to Stand Indep Bed to Chair Transfers indep Functional Movements Lifting and Carrying Indep Squats 45 deg Running Assessment unable OP Gait Assessment Gait Gait Assistance Required: Independent Able to Maintain Weight Bearing Status Yes During Gait Assistive Devices Assistive Device None Gait Deviations General Gait Pattern Antalgic,Decreased Feet Clearance,Wide Based Gait Comments Gait Comments Patient exhibits steppage gait with decreased WB to RLE Stair Climbing Evaluation Evaluation Level of Assist On Stairs Independent Devices Stair Climbing Assistive Devices Left Railing,Right Railing Technique/Endurance Stair Climbing Direction Ascend and Descend Stair Climbing Technique Step to Step Number of Steps Climbed 12 Comments Stair Climbing Comments slow w/ step to step gait with the use of both HR PT-OP-J Posture/Palpation/Skin Start: 10/06/18 13:40 Freq: Status: Active Protocol: Document 10/06/18 17:35 EA (Rec: 10/07/18 11:10 EA [id number]) Posture Evaluation Comments Posture Comments Rounded shoulder with increased lumbar curves and slight hip flex (fair posture) Palpation Assessment Location One Palpation Location ant. mid TC joint, base of 1st metatarsal joint Palpation Findings Tenderness Palpation Details Grade 2/4 tenderness Skin Assessment Circumference Measurement 1 Location mid TC joint Comments L=26 ; R=28 (slight right angle swelling but no signs of edema) PT-OP-K Range of Motion Start: 10/06/18 13:40 Freq: Status: Active Protocol: Document 10/06/18 17:35 EA (Rec: 10/07/18 11:10 EA [id number]) Shoulder Goniometric Range of Motion Shoulder ROM Limitations Shoulder ROM Limitations Soft Tissue Tightness,Muscle Weakness Comments Impaired left shoulder function with a history of shoulder surgery. Hip Goniometric Range of Motion Hip Left Active Flexion w/Knee Flexed 90 Extension 15 Internal Rotation 25 External Rotation 20 Right Active Flexion w/Knee Flexed 90 Extension 15 Abduction 45 Internal Rotation 25 External Rotation 15 Hip ROM Limitations Hip ROM Limitations Soft Tissue Tightness Knee Goniometric Range of Motion Knee Right Knee ROM WFL Yes Ankle and Foot Goniometric Range of Motion Ankle and Foot Right Active Dorsiflexion with Knee Flexed 10 Plantarflexion 45 Inversion 30 Eversion 20 Left Active Ankle/Foot ROM WFL Yes Dorsiflexion with Knee Flexed 20 Plantarflexion 45 Inversion 35 Eversion 25 PT-OP-L Special Tests Start: 10/06/18 13:40 Freq: Status: Active Protocol: Document 10/06/18 17:35 EA (Rec: 10/07/18 11:10 EA [id number]) Special Tests Foot/Ankle Special Tests Talor Tilt Test Results - PT-OP-M Strength Start: 10/06/18 13:40 Freq: Status: Active Protocol: Document 12/14/18 15:38 SAK (Rec: 12/14/18 16:16 SAK [id number]) Ankle/Foot Strength Ankle and Foot Manual Muscle Testing Right Dorsiflexion (L4) 3 Fair Plantarflexion (S1) 4- Good- Inversion 3+ Fair+ Eversion (S1) 3+ Fair+ Left Reason Not Measured WFL PT-OP-Q Treatments Start: 10/06/18 13:40 Freq: Status: Active Protocol: Document 01/06/19 15:07 SAK (Rec: 01/06/19 15:58 SAK [id number]) Cardio Equipment Recumbent Elliptical ([employer]) Duration (Minutes) 10 Resistance 4 Seat Position 6 Other LE's only last 5 min Gym Equipment Shuttle Balance Red Details N/W ANDRY, tandem Reps/Duration 6 min Comments balance and weight shifting fwd/bck, side/side Therapeutic Exercises Supine Exercises HC stretch Equipment Used manual Reps/Minutes 2x30, Sitting Exercises 3 way ankle Sitting Exercise Name inv, ever, DF Side right Reps/Minutes 15x2 each Comments assist for full df, then eccentric Standing Exercises heel walk Reps/Minutes 2x // bars backward walk Reps/Minutes 2x // bars hip ext Reps/Minutes 10x hip ab Reps/Minutes 10x tandem stand Reps/Minutes 4 min SLS Side bilateral Equipment Used at bar Reps/Minutes 3 x 5 Comments UE support HC stretch Side bilateral Equipment Used CARMINA Reps/Minutes 3 min Comments f/b isometric ankle DF Gait Training Gait Activity gait without device Level of Assistance verbal cues Comments mirror for visual feedback. Cues for heelstrike, push-off, decrease lateral sway. Wgt Shifting Description Motor relearning Surface firm level Treatment Focus Wgt shifting R & stepping with the R in proper position. PT-OP-R Modalities Start: 10/06/18 13:40 Freq: Status: Active Protocol: Document 01/06/19 15:07 [facility] (Rec: 01/06/19 16:07 [facility] [id number]) Hot Pack/Cold Pack Treatment Cold Pack Location R ankle (CRYOCUFF), CP to L ankle Patient Position Hooklying Patient Tolerance Good Comments LE's elevated above heart on bolster and wedge. PT-OP-T Assessment and Plan Start: 10/06/18 13:40 Freq: Status: Active Protocol: Document 01/06/19 15:07 [facility] (Rec: 01/06/19 16:07 [facility] [id number]) Physical Therapy Assessment Goals Four Impairment Two fall incidence in the last 6 months [facility] Goal (LTG) Patient will report no fall in the next 4 wks 11/26/18 No recent fall LTG Duration goal met Three Impairment Impaired gait [facility] Goal (LTG) Patient increased R ankle DF strength by 1/2 -1 grade to improve gait. 12/14/18: improved by 1/2 grade LTG Duration 01/25/19 Two Impairment Impaired distance ambulation Neurological Physiotherapist Goal (LTG) Patient will ambulate > a block with no assistive device with improved gait 12/14/18: goal met NEW GOAL: patient able to walk community distances without assistive device with equal step length and weight shift mechanics and no LOB LTG Duration 01/25/19 One Impairment FAAM score 20/75 Neurological Physiotherapist Goal (LTG) FAAM score of 40/75 12/14/18: goal progress to 31/75 LTG Duration 01/25/19 Assessment Summary Assessment Tolerated increased exercise today with decreased need for UE support. Physical Therapy Plan Frequency and Duration Frequency of Treatment 2x/Week Duration of Treatment 6 wks Plan of Care Start Date 12/14/18 Plan of Care End Date 01/25/19 Therapeutic Interventions Therapeutic Interventions Balance Training,Gait Training ,Home Exercise Program,Joint Mobilizations,Manual Therapy, Neuromuscular Re-education, Patient/Caregiver Education, Self-Care/Home Management,Soft Tissue Mobilization,Taping, Therapeutic Exercises Modalities Cold Pack/Ice Massage,Electric Stimulation Next Visit Focus/Plan Next Note Type Treatment Note Next Visit Plan After discussion with patient have decided to do follow-up appointment in 3-4 weeks and do 1-2 visits of aquatic PT as we are continueing to increase her activity tolerance, strength, balance, and gait safety. She will continue with her HEP and walking program as instructed and reviewed today.
--- NOTE | 2019-01-17 17:10 | PT.OTN ---
Current Diagnoses Pain in right ankle and joints of right foot (01/17/19) Displaced fracture of lateral malleolus of left fibula, subsequent encounter for closed fracture with routine healing (01/17/19) Sprain of unspecified ligament of left ankle, subsequent encounter (01/17/19) Physical Therapy Treatment Note PT-OP-A Visit Information Start: 10/06/18 13:40 Freq: Status: Active Protocol: Document 01/17/19 17:00 SAK (Rec: 01/17/19 17:04 SAK [id number]) Out-Patient Physical Therapy Visit Information Visit Information Visit Type Treatment Note Visit Start Time 10:15 Visit Stop Time 11:00 Total Visit Minutes 45 Visit Number 22 Number of CHARGEBACK ANALYST Visits 0 Evaluation Information Evaluation Date 10/06/18 PT-OP-B Current Condition Start: 10/06/18 13:40 Freq: Status: Active Protocol: Document 10/06/18 14:45 EA (Rec: 10/06/18 15:17 EA [id number]) Current Condition History of Current Condition Onset Date 07/17/2018 Current Complaints s/p right ankle sprain History of Current Condition Patient is a poor historian: Patient reports she tripped and fell at home and twisted her right ankle on July 17, 2018. Patient then went to [facility] and given pain meds and was on boot upon discharged. She stated saw her specialist and referred to PT and discharged using foot immobilzer two weeks ago. Medical reports identified and on September 30, 2018 that she underwent multiple joints diagnostic imaging with no significant fracture identified except with avulsion fracture at the base of the right big toe but requires further imaging. Patient is currently ambulating with no AD and states she has ankle brace but does not like to use it. Medical reports from patient clinic stated that she is clear for weight bearing as tolerated with the use of ankle brace and they are aware that patient is not compliant with recommended WB and AD. Prior Treatments and Tests Pain Medication, on a foot immobilizer until two weeks ago from todays date. Future Testing and Treatments Planned She will see her senior label specialist on the second week of October/2018 for follow up. Treatment Goals Patient/Caregiver Goals Patient would like to increase right foot strength to improve walking. Prior Functional Status Baseline Function- ADL's Independent Baseline Function- Mobility Independent Baseline Function- Gait Gait difficulty due to right foot dropped with ability to walk > a block. Baseline Function- Work/School Patient is not currently working and is not on disability. Baseline Function- Other Patient able to perform light activities at home and she got help from her boyfriend and mother with heavy house chores . Current Functional Impairments (Reported) Functional Limitations- ADL's Unable to perform full house hold chores; laundry, outdoor errands and heavy tasks at home requires assistance. Personal care performed with difficulty Functional Limitations- Mobility/Gait Indep with out the use of AD in less than a block Functional Limitations- Work/School Not currently working Functional Limitations- Recreation/ Unable to do Hobbies Personal Factors Other Personal Factors That May Effect History of low back surgery, Therapy/Recovery Depression, 2 falls in the last 6 months with significant injury on last fall, Liver disease, seizure with last episode happen a year ago. PT-OP-C Subjective Start: 10/06/18 13:40 Freq: Status: Active Protocol: Document 01/17/19 17:00 SAK (Rec: 01/17/19 17:04 SAK [id number]) OP-PT Subjective Patient Comments Patient Comments Some increase in ankle swelling today but reports mild increase in walking yesterday plus eating movie theater popcorn (heavy on sodium which she is supposed to avoid). PT-OP-D Balance Start: 10/06/18 13:40 Freq: Status: Active Protocol: Document 10/06/18 17:35 EA (Rec: 10/07/18 11:10 EA [id number]) OP-PT Balance Assessment Sitting Balance Static Sitting Balance Ability Normal Dynamic Sitting Balance Ability Normal Standing Balance Static Standing Balance Ability Good Dynamic Standing Balance Ability Fair Balance Tests Functional Reach Functional Reach Test 9 Functional Reach Impairment Rating 1 to <20% Impaired (Score 9) Single Limb Standing Single Limb- Right unable Single Limb- Left unable Semi-Tandem Standing Semi-Tandem Standing Balance Requires assist to position and last < 2 second Tandem Tandem Standing Unable Du Fall Scale Copyright Permission PT-OP-F Manual Assessment Start: 10/06/18 13:40 Freq: Status: Active Protocol: Document 10/06/18 17:35 EA (Rec: 10/07/18 11:10 EA [id number]) Manual Assessments Soft Tissue Assessment Soft Tissue Mobility Assessment Tightness to calf muscles, hip rotators, quads, hamstrings Joint Mobility Assessment Joint Mobility Assessment Normal TC joint mobility PT-OP-G Mobility & Gait Start: 10/06/18 13:40 Freq: Status: Active Protocol: Document 10/06/18 17:35 EA (Rec: 10/07/18 11:10 EA [id number]) OP Mobility Evaluation Bed Mobility Rolling Minimal difficulty but indep Supine to and from Sit Moderate difficulty but indep Transfers Sit to Stand Indep Bed to Chair Transfers indep Functional Movements Lifting and Carrying Indep Squats 45 deg Running Assessment unable OP Gait Assessment Gait Gait Assistance Required: Independent Able to Maintain Weight Bearing Status Yes During Gait Assistive Devices Assistive Device None Gait Deviations General Gait Pattern Antalgic,Decreased Feet Clearance,Wide Based Gait Comments Gait Comments Patient exhibits steppage gait with decreased WB to RLE Stair Climbing Evaluation Evaluation Level of Assist On Stairs Independent Devices Stair Climbing Assistive Devices Left Railing,Right Railing Technique/Endurance Stair Climbing Direction Ascend and Descend Stair Climbing Technique Step to Step Number of Steps Climbed 12 Comments Stair Climbing Comments slow w/ step to step gait with the use of both HR PT-OP-J Posture/Palpation/Skin Start: 10/06/18 13:40 Freq: Status: Active Protocol: Document 10/06/18 17:35 EA (Rec: 10/07/18 11:10 EA [id number]) Posture Evaluation Comments Posture Comments Rounded shoulder with increased lumbar curves and slight hip flex (fair posture) Palpation Assessment Location One Palpation Location ant. mid TC joint, base of 1st metatarsal joint Palpation Findings Tenderness Palpation Details Grade 2/4 tenderness Skin Assessment Circumference Measurement 1 Location mid TC joint Comments L=26 ; R=28 (slight right angle swelling but no signs of edema) PT-OP-K Range of Motion Start: 10/06/18 13:40 Freq: Status: Active Protocol: Document 10/06/18 17:35 EA (Rec: 10/07/18 11:10 EA [id number]) Shoulder Goniometric Range of Motion Shoulder ROM Limitations Shoulder ROM Limitations Soft Tissue Tightness,Muscle Weakness Comments Impaired left shoulder function with a history of shoulder surgery. Hip Goniometric Range of Motion Hip Left Active Flexion w/Knee Flexed 90 Extension 15 Internal Rotation 25 External Rotation 20 Right Active Flexion w/Knee Flexed 90 Extension 15 Abduction 45 Internal Rotation 25 External Rotation 15 Hip ROM Limitations Hip ROM Limitations Soft Tissue Tightness Knee Goniometric Range of Motion Knee Right Knee ROM WFL Yes Ankle and Foot Goniometric Range of Motion Ankle and Foot Right Active Dorsiflexion with Knee Flexed 10 Plantarflexion 45 Inversion 30 Eversion 20 Left Active Ankle/Foot ROM WFL Yes Dorsiflexion with Knee Flexed 20 Plantarflexion 45 Inversion 35 Eversion 25 PT-OP-L Special Tests Start: 10/06/18 13:40 Freq: Status: Active Protocol: Document 10/06/18 17:35 EA (Rec: 10/07/18 11:10 EA [id number]) Special Tests Foot/Ankle Special Tests Talor Tilt Test Results - PT-OP-M Strength Start: 10/06/18 13:40 Freq: Status: Active Protocol: Document 12/14/18 15:38 SAK (Rec: 12/14/18 16:16 SAK [id number]) Ankle/Foot Strength Ankle and Foot Manual Muscle Testing Right Dorsiflexion (L4) 3 Fair Plantarflexion (S1) 4- Good- Inversion 3+ Fair+ Eversion (S1) 3+ Fair+ Left Reason Not Measured WFL PT-OP-Q Treatments Start: 10/06/18 13:40 Freq: Status: Active Protocol: Document 01/06/19 15:07 SAK (Rec: 01/06/19 15:58 SAK [id number]) Cardio Equipment Recumbent Elliptical (Biodex) Duration (Minutes) 10 Resistance 4 Seat Position 6 Other LE's only last 5 min Gym Equipment Shuttle Balance Red Details N/W ANDRY, tandem Reps/Duration 6 min Comments balance and weight shifting fwd/bck, side/side Therapeutic Exercises Supine Exercises HC stretch Equipment Used manual Reps/Minutes 2x30, Sitting Exercises 3 way ankle Sitting Exercise Name inv, ever, DF Side right Reps/Minutes 15x2 each Comments assist for full df, then eccentric Standing Exercises heel walk Reps/Minutes 2x // bars backward walk Reps/Minutes 2x // bars hip ext Reps/Minutes 10x hip ab Reps/Minutes 10x tandem stand Reps/Minutes 4 min SLS Side bilateral Equipment Used at bar Reps/Minutes 3 x 5 Comments UE support HC stretch Side bilateral Equipment Used CARMINA Reps/Minutes 3 min Comments f/b isometric ankle DF Gait Training Gait Activity gait without device Level of Assistance verbal cues Comments mirror for visual feedback. Cues for heelstrike, push-off, decrease lateral sway. Wgt Shifting Description Motor relearning Surface firm level Treatment Focus Wgt shifting R & stepping with the R in proper position. PT-OP-R Modalities Start: 10/06/18 13:40 Freq: Status: Active Protocol: Document 01/06/19 15:07 [facility] (Rec: 01/06/19 16:07 [facility] [id number]) Hot Pack/Cold Pack Treatment Cold Pack Location R ankle ([id number]), CP to L ankle Patient Position Hooklying Patient Tolerance Good Comments LE's elevated above heart on bolster and wedge. PT-OP-S Aquatic Treatment Start: 01/17/19 17:04 Freq: Status: Active Protocol: Document 01/17/19 17:00 [facility] (Rec: 01/17/19 17:09 [facility] [id number]) Aquatics Treatment Pool Entry/Exit Pool Entry/Exit Method Stairs Assistance Standby Assistance,Verbal Cues Water Walking Marching Water Level Chest Level Level of Assistance Verbal Cues Sideways Water Level Chest Level Level of Assistance Verbal Cues Backwards Water Level Chest Level Level of Assistance Verbal Cues Forwards Water Level Chest Level Level of Assistance Verbal Cues Lower Extremity Exercises squats Body Position Standing Water Level Chest Level Reps/Duration 10x knee flex/ext Body Position Standing Water Level Chest Level Reps/Duration 10x toe raises Body Position Standing Water Level Chest Level Reps/Duration 10x heel raises Body Position Standing Water Level Chest Level Reps/Duration 10x Lower Extremity Stretches HS Body Position Standing Water Level Chest Level Equipment Small Noodle Reps/Duration 2x30 HC Details heel drop on stair: florin and unil Body Position Standing Reps/Duration 2x30 [place] Activities [place] Activities Bicycle Other Activities deep water hang 30 x 3 Equipment moapa float, 2# ea LE Duration 12 min PT-OP-T Assessment and Plan Start: 10/06/18 13:40 Freq: Status: Active Protocol: Document 01/17/19 17:00 [facility] (Rec: 01/17/19 17:04 [facility] [id number]) Physical Therapy Assessment Goals Four Impairment Two fall incidence in the last 6 months Heating Systems Installer Goal (LTG) Patient will report no fall in the next 4 wks 11/26/18 No recent fall LTG Duration goal met Three Impairment Impaired gait Heating Systems Installer Goal (LTG) Patient increased R ankle DF strength by 1/2 -1 grade to improve gait. 8/6/19: improved by 1/2 grade LTG Duration 01/25/19 Two Impairment Impaired distance ambulation Intermediate Goal (LTG) Patient will ambulate > a block with no assistive device with improved gait 12/14/18: goal met NEW GOAL: patient able to walk community distances without assistive device with equal step length and weight shift mechanics and no LOB LTG Duration 01/25/19 One Impairment FAAM score 20/75 Intermediate Goal (LTG) FAAM score of 40/75 12/14/18: goal progress to 31/75 LTG Duration 01/25/19 Assessment Summary Assessment Patient had excellent tolerance to aquatic physical therapy today reporting decrease in pain and improved feeling of stability in water. She was able to remain vertical for 45 min, working on ROM, strengthening, gait, and balance in buoyancy supported environment. Physical Therapy Plan Frequency and Duration Frequency of Treatment 2x/Week Duration of Treatment 6 wks Plan of Care Start Date 12/14/18 Plan of Care End Date 01/25/19 Therapeutic Interventions Therapeutic Interventions Balance Training,Gait Training ,Home Exercise Program,Joint Mobilizations,Manual Therapy, Neuromuscular Re-education, Patient/Caregiver Education, Self-Care/Home Management,Soft Tissue Mobilization,Taping, Therapeutic Exercises Modalities Cold Pack/Ice Massage,Electric Stimulation Next Visit Focus/Plan Next Note Type Treatment Note Next Visit Plan Recommend remaining visits in aquatic PT due to good tolerance and positive benefits in all areas of patient goals.
--- NOTE | 2019-01-31 10:15 | PT.OPPOC ---
Current Diagnoses Pain in right ankle and joints of right foot (01/31/19) Displaced fracture of lateral malleolus of left fibula, subsequent encounter for closed fracture with routine healing (01/31/19) Sprain of unspecified ligament of left ankle, subsequent encounter (01/31/19) Visit Care Team Role Provider Type Miguel Ángel Leary MD Primary Care Provider Physician Specialty: Internal Medicine Address: [address] [place] [address], [address], [address] Email: [email or web address] Yang PA-C Attending Provider Physician Specialty: Orthopedic Surgery Address: [address] [place] [address], [place], [address] Fax: Email: [email or web address] Plan Of Care PT-OP-T Assessment and Plan Start: 10/06/18 13:40 Freq: Status: Active Protocol: Document 01/31/19 10:15 [facility] (Rec: 02/01/19 08:23 [facility] [id number]) Physical Therapy Assessment Goals Four Impairment Two fall incidence in the last 6 months Custodial Goal (LTG) Patient will report no fall in the next 4 wks 11/26/18 No recent fall LTG Duration goal met Three Impairment Impaired gait Sales And Production Manager Goal (LTG) Patient increased R ankle DF strength by 1/2 -1 grade to improve gait. 12/14/18: improved by 1/2 grade 01/31/19: no further change LTG Duration 01/25/19 Two Impairment Impaired distance ambulation Sales And Production Manager Goal (LTG) Patient will ambulate > a block with no assistive device with improved gait 12/14/18: goal met NEW GOAL: patient able to walk community distances without assistive device with equal step length and weight shift mechanics and no LOB 01/31/19: continues to walk minimally in the community, exhibiting low activity level. LTG Duration 01/25/19 One Impairment FAAM score 20/75 Custodial Goal (LTG) FAAM score of 40/75 12/14/18: goal progress to 31/75 01/31/19: no further change. LTG Duration 01/25/19 Assessment Summary Assessment Patient reports decreased pain in aquatic environment and increased confidence in walking due to buoyancy; she has good tolerance for aquatic therapy. She needs ankle weights for vertical alignment and safety in deep water. Feel she would benefit from 1 further aquatic therapy session to assure safety and independence, then plan to discharge. Physical Therapy Plan Frequency and Duration Frequency of Treatment 1 visit Duration of Treatment 4 wks Plan of Care Start Date 01/31/19 Plan of Care End Date 03/03/19 Therapeutic Interventions Therapeutic Interventions Balance Training,Gait Training ,Home Exercise Program,Joint Mobilizations,Manual Therapy, Neuromuscular Re-education, Patient/Caregiver Education, Self-Care/Home Management,Soft Tissue Mobilization,Taping, Therapeutic Exercises Modalities Cold Pack/Ice Massage,Electric Stimulation Next Visit Focus/Plan Next Note Type Treatment Note Next Visit Plan 1 further aquatic therapy session, issue written instructions and discharge to independent aquatic exercise program. Plan of Care Dates Plan of Care Start Date 01/31/19 Plan of Care End Date 03/03/19
--- NOTE | 2019-01-31 10:15 | PT.OTRE ---
Current Diagnoses Pain in right ankle and joints of right foot (01/31/19) Displaced fracture of lateral malleolus of left fibula, subsequent encounter for closed fracture with routine healing (01/31/19) Sprain of unspecified ligament of left ankle, subsequent encounter (01/31/19) Past Medical History (Last Updated 11/04/18 @ 14:38 by Oneyda Hand MD) Anxiety (Chronic) Avascular necrosis (Chronic) Chicken pox (Resolved) Chlamydia (Resolved ~1988) Cirrhosis (Chronic) Colon polyp (Acute) COPD (chronic obstructive pulmonary disease) (Chronic) Depression (Chronic) Esophageal varices (Chronic) Esophageal web (Chronic) Hayfever (Chronic) Hemorrhoids (Chronic) History of total thyroidectomy (Resolved 1997) Hypothyroidism (Chronic 1997) Irregular periods/menstrual cycles (Chronic) MRSA infection (Resolved) Pancytopenia (Chronic) Seizures (Chronic) Shoulder pain (Chronic) Substance abuse (Chronic) Thyroid cancer (Resolved 02/1998) Surgical History (Last Reviewed 09/30/18 @ 20:41 by Sindi Armendariz PA-C) Anesthesia complication (Resolved) History of adenoidectomy (Resolved) History of bunionectomy (Resolved) History of bunionectomy (Resolved) History of dilation and curettage (Resolved) History of esophageal surgery (Resolved 2016) History of left hip replacement (Resolved 08/2017) History of placement of ear tubes (Resolved) History of right hip replacement (Resolved 11/2017) History of tonsillectomy (Resolved) Visit Care Team Role Provider Type Miguel Ángel Leary MD Primary Care Provider Physician Specialty: Internal Medicine Address: [address] [place] [address], [address], [address] Email: [email or web address] Nikki Yang PA-C Attending Provider Physician Specialty: Orthopedic Surgery Address: [address] [place] [address], [id number] Fax: Email: [email or web address] Physical Therapy Re-Evaluation PT-OP-A Visit Information Start: 10/06/18 13:40 Freq: Status: Active Protocol: Document 01/31/19 10:15 MAYANK (Rec: 02/01/19 08:23 SAK [id number]) Out-Patient Physical Therapy Visit Information Visit Information Visit Type Treatment Note Visit Start Time 10:15 Visit Stop Time 11:00 Total Visit Minutes 45 Visit Number 23 Number of CHEMISTRY LAB INSTRUCTOR Visits 0 Evaluation Information Evaluation Date 10/06/18 PT-OP-B Current Condition Start: 10/06/18 13:40 Freq: Status: Active Protocol: Document 10/06/18 14:45 EA (Rec: 10/06/18 15:17 EA [id number]) Current Condition History of Current Condition Onset Date 07/17/2018 Current Complaints s/p right ankle sprain History of Current Condition Patient is a poor historian: Patient reports she tripped and fell at home and twisted her right ankle on July 17, 2018. Patient then went to [facility] day and given pain meds and was on boot upon discharged. She stated saw her specialist and referred to PT and discharged using foot immobilzer two weeks ago. Medical reports identified and on September 30, 2018 that she underwent multiple joints diagnostic imaging with no significant fracture identified except with avulsion fracture at the base of the right big toe but requires further imaging. Patient is currently ambulating with no AD and states she has ankle brace but does not like to use it. Medical reports from patient clinic stated that she is clear for weight bearing as tolerated with the use of ankle brace and they are aware that patient is not compliant with recommended WB and AD. Prior Treatments and Tests Pain Medication, on a foot immobilizer until two weeks ago from todays date. Future Testing and Treatments Planned She will see her computer customer support specialist on the second week of October/2018 for follow up. Treatment Goals Patient/Caregiver Goals Patient would like to increase right foot strength to improve walking. Prior Functional Status Baseline Function- ADL's Independent Baseline Function- Mobility Independent Baseline Function- Gait Gait difficulty due to right foot dropped with ability to walk > a block. Baseline Function- Work/School Patient is not currently working and is not on disability. Baseline Function- Other Patient able to perform light activities at home and she got help from her boyfriend and mother with heavy house chores . Current Functional Impairments (Reported) Functional Limitations- ADL's Unable to perform full house hold chores; laundry, outdoor errands and heavy tasks at home requires assistance. Personal care performed with difficulty Functional Limitations- Mobility/Gait Indep with out the use of AD in less than a block Functional Limitations- Work/School Not currently working Functional Limitations- Recreation/ Unable to do Hobbies Personal Factors Other Personal Factors That May Effect History of low back surgery, Therapy/Recovery Depression, 2 falls in the last 6 months with significant injury on last fall, Liver disease, seizure with last episode happen a year ago. PT-OP-C Subjective Start: 10/06/18 13:40 Freq: Status: Active Protocol: Document 01/31/19 10:15 SAK (Rec: 02/01/19 08:23 SAK [id number]) OP-PT Subjective Patient Comments Patient Comments States she continues to have some issues with swelling. hasn't been doing as much exercise or walking or been to the pool on her own. Reports she was very fatigued and had some muscle soreness but no pain after first aquatic therapy session. PT-OP-D Balance Start: 10/06/18 13:40 Freq: Status: Active Protocol: Document 10/06/18 17:35 EA (Rec: 10/07/18 11:10 EA [id number]) OP-PT Balance Assessment Sitting Balance Static Sitting Balance Ability Normal Dynamic Sitting Balance Ability Normal Standing Balance Static Standing Balance Ability Good Dynamic Standing Balance Ability Fair Balance Tests Functional Reach Functional Reach Test 9 Functional Reach Impairment Rating 1 to <20% Impaired (Score 9) Single Limb Standing Single Limb- Right unable Single Limb- Left unable Semi-Tandem Standing Semi-Tandem Standing Balance Requires assist to position and last < 2 second Tandem Tandem Standing Unable Du Fall Scale Copyright Permission Florian NEVES, Florian RM, Mohan S[place]. Development of a scale to identify the fall- prone patient. Can J Aging 1989;8;366-7. Jackeline Du (2009). Preventing patient falls. (2nd ed). Reeves: [place]. PT-OP-F Manual Assessment Start: 10/06/18 13:40 Freq: Status: Active Protocol: Document 10/06/18 17:35 EA (Rec: 10/07/18 11:10 EA [id number]) Manual Assessments Soft Tissue Assessment Soft Tissue Mobility Assessment Tightness to calf muscles, hip rotators, quads, hamstrings Joint Mobility Assessment Joint Mobility Assessment Normal TC joint mobility PT-OP-G Mobility & Gait Start: 10/06/18 13:40 Freq: Status: Active Protocol: Document 10/06/18 17:35 EA (Rec: 10/07/18 11:10 EA [id number]) OP Mobility Evaluation Bed Mobility Rolling Minimal difficulty but indep Supine to and from Sit Moderate difficulty but indep Transfers Sit to Stand Indep Bed to Chair Transfers indep Functional Movements Lifting and Carrying Indep Squats 45 deg Running Assessment unable OP Gait Assessment Gait Gait Assistance Required: Independent Able to Maintain Weight Bearing Status Yes During Gait Assistive Devices Assistive Device None Gait Deviations General Gait Pattern Antalgic,Decreased Feet Clearance,Wide Based Gait Comments Gait Comments Patient exhibits steppage gait with decreased WB to RLE Stair Climbing Evaluation Evaluation Level of Assist On Stairs Independent Devices Stair Climbing Assistive Devices Left Railing,Right Railing Technique/Endurance Stair Climbing Direction Ascend and Descend Stair Climbing Technique Step to Step Number of Steps Climbed 12 Comments Stair Climbing Comments slow w/ step to step gait with the use of both HR PT-OP-J Posture/Palpation/Skin Start: 10/06/18 13:40 Freq: Status: Active Protocol: Document 10/06/18 17:35 EA (Rec: 10/07/18 11:10 EA [id number]) Posture Evaluation Comments Posture Comments Rounded shoulder with increased lumbar curves and slight hip flex (fair posture) Palpation Assessment Location One Palpation Location ant. mid TC joint, base of 1st metatarsal joint Palpation Findings Tenderness Palpation Details Grade 2/4 tenderness Skin Assessment Circumference Measurement 1 Location mid TC joint Comments L=26 ; R=28 (slight right angle swelling but no signs of edema) PT-OP-K Range of Motion Start: 10/06/18 13:40 Freq: Status: Active Protocol: Document 10/06/18 17:35 EA (Rec: 10/07/18 11:10 EA [id number]) Shoulder Goniometric Range of Motion Shoulder ROM Limitations Shoulder ROM Limitations Soft Tissue Tightness,Muscle Weakness Comments Impaired left shoulder function with a history of shoulder surgery. Hip Goniometric Range of Motion Hip Measured in Degrees Left Active Flexion w/Knee Flexed 90 Extension 15 Internal Rotation 25 External Rotation 20 Right Active Flexion w/Knee Flexed 90 Extension 15 Abduction 45 Internal Rotation 25 External Rotation 15 Hip ROM Limitations Hip ROM Limitations Soft Tissue Tightness Knee Goniometric Range of Motion Knee Measured in Degrees Right Knee ROM WFL Yes Ankle and Foot Goniometric Range of Motion Ankle and Foot Measured in Degrees Right Active Dorsiflexion with Knee Flexed 10 Plantarflexion 45 Inversion 30 Eversion 20 Left Active Ankle/Foot ROM WFL Yes Dorsiflexion with Knee Flexed 20 Plantarflexion 45 Inversion 35 Eversion 25 PT-OP-L Special Tests Start: 10/06/18 13:40 Freq: Status: Active Protocol: Document 10/06/18 17:35 EA (Rec: 10/07/18 11:10 EA [id number]) Special Tests Foot/Ankle Special Tests Talor Tilt Test Results - PT-OP-M Strength Start: 10/06/18 13:40 Freq: Status: Active Protocol: Document 12/14/18 15:38 SAK (Rec: 12/14/18 16:16 SAK [id number]) Ankle/Foot Strength Ankle and Foot Manual Muscle Testing Right Dorsiflexion (L4) 3 Fair Plantarflexion (S1) 4- Good- Inversion 3+ Fair+ Eversion (S1) 3+ Fair+ Left Reason Not Measured WFL PT-OP-Q Treatments Start: 10/06/18 13:40 Freq: Status: Active Protocol: Document 01/06/19 15:07 SAK (Rec: 01/06/19 15:58 SAK [id number]) Cardio Equipment Recumbent Elliptical (Biodex) Duration (Minutes) 10 Resistance 4 Seat Position 6 Other LE's only last 5 min Gym Equipment Shuttle Balance Red Details N/W ANDRY, tandem Reps/Duration 6 min Comments balance and weight shifting fwd/bck, side/side Therapeutic Exercises Supine Exercises HC stretch Equipment Used manual Reps/Minutes 2x30, Sitting Exercises 3 way ankle Sitting Exercise Name inv, ever, DF Side right Reps/Minutes 15x2 each Comments assist for full df, then eccentric Standing Exercises heel walk Reps/Minutes 2x // bars backward walk Reps/Minutes 2x // bars hip ext Reps/Minutes 10x hip ab Reps/Minutes 10x tandem stand Reps/Minutes 4 min SLS Side bilateral Equipment Used at bar Reps/Minutes 3 x 5 Comments UE support HC stretch Side bilateral Equipment Used CARMINA Reps/Minutes 3 min Comments f/b isometric ankle DF Gait Training Gait Activity gait without device Level of Assistance verbal cues Comments mirror for visual feedback. Cues for heelstrike, push-off, decrease lateral sway. Wgt Shifting Description Motor relearning Surface firm level Treatment Focus Wgt shifting R & stepping with the R in proper position. PT-OP-R Modalities Start: 10/06/18 13:40 Freq: Status: Active Protocol: Document 01/06/19 15:07 SAK (Rec: 01/06/19 16:07 [facility] [id number]) Hot Pack/Cold Pack Treatment Cold Pack Location R ankle ([id number]), CP to L ankle Patient Position Hooklying Patient Tolerance Good Comments LE's elevated above heart on bolster and wedge. PT-OP-T Assessment and Plan Start: 10/06/18 13:40 Freq: Status: Active Protocol: Document 01/31/19 10:15 SAK (Rec: 02/01/19 08:23 [facility] [id number]) Physical Therapy Assessment Goals Four Impairment Two fall incidence in the last 6 months Snf Goal (LTG) Patient will report no fall in the next 4 wks 11/26/18 No recent fall LTG Duration goal met Three Impairment Impaired gait Marketing Liaison Goal (LTG) Patient increased R ankle DF strength by 1/2 -1 grade to improve gait. 12/14/18: improved by 1/2 grade 01/31/19: no further change LTG Duration 01/25/19 Two Impairment Impaired distance ambulation Marketing Liaison Goal (LTG) Patient will ambulate > a block with no assistive device with improved gait 12/14/18: goal met NEW GOAL: patient able to walk community distances without assistive device with equal step length and weight shift mechanics and no LOB 01/31/19: continues to walk minimally in the community, exhibiting low activity level. LTG Duration 01/25/19 One Impairment FAAM score 20/75 Marketing Liaison Goal (LTG) FAAM score of 40/75 12/14/18: goal progress to 31/75 01/31/19: no further change. LTG Duration 01/25/19 Assessment Summary Assessment Patient reports decreased pain in aquatic environment and increased confidence in walking due to buoyancy; she has good tolerance for aquatic therapy. She needs ankle weights for vertical alignment and safety in deep water. Feel she would benefit from 1 further aquatic therapy session to assure safety and independence, then plan to discharge. Physical Therapy Plan Frequency and Duration Frequency of Treatment 1 visit Duration of Treatment 4 wks Plan of Care Start Date 01/31/19 Plan of Care End Date 03/03/19 Therapeutic Interventions Therapeutic Interventions Balance Training,Gait Training ,Home Exercise Program,Joint Mobilizations,Manual Therapy, Neuromuscular Re-education, Patient/Caregiver Education, Self-Care/Home Management,Soft Tissue Mobilization,Taping, Therapeutic Exercises Modalities Cold Pack/Ice Massage,Electric Stimulation Next Visit Focus/Plan Next Note Type Treatment Note Next Visit Plan 1 further aquatic therapy session, issue written instructions and discharge to independent aquatic exercise program.
--- NOTE | 2019-02-21 14:22 | PT.OTN ---
Current Diagnoses Pain in right ankle and joints of right foot (01/31/19) Displaced fracture of lateral malleolus of left fibula, subsequent encounter for closed fracture with routine healing (01/31/19) Sprain of unspecified ligament of left ankle, subsequent encounter (01/31/19) Physical Therapy Treatment Note PT-OP-A Visit Information Start: 10/06/18 13:40 Freq: Status: Active Protocol: Document 02/21/19 11:45 LJ (Rec: 02/21/19 14:22 LJ [id number]) Out-Patient Physical Therapy Visit Information Visit Information Visit Type Aquatic Treatment Note Visit Start Time 11:45 Visit Stop Time 12:30 Total Visit Minutes 45 Visit Number 3 Number of QUILL CLEANER Visits 1 PT-OP-B Current Condition Start: 10/06/18 13:40 Freq: Status: Active Protocol: Document 10/06/18 14:45 EA (Rec: 10/06/18 15:17 EA [id number]) Current Condition History of Current Condition Onset Date 07/17/2018 Current Complaints s/p right ankle sprain History of Current Condition Patient is a poor historian: Patient reports she tripped and fell at home and twisted her right ankle on July 17, 2018. Patient then went to [facility] on the same day and given pain meds and was on boot upon discharged. She stated saw her specialist and referred to PT and discharged using foot immobilzer two weeks ago. Medical reports identified and on September 30, 2018 that she underwent multiple joints diagnostic imaging with no significant fracture identified except with avulsion fracture at the base of the right big toe but requires further imaging. Patient is currently ambulating with no AD and states she has ankle brace but does not like to use it. Medical reports from patient clinic stated that she is clear for weight bearing as tolerated with the use of ankle brace and they are aware that patient is not compliant with recommended WB and AD. Prior Treatments and Tests Pain Medication, on a foot immobilizer until two weeks ago from todays date. Future Testing and Treatments Planned She will see her adjudication specialist on the second week of October/2018 for follow up. Treatment Goals Patient/Caregiver Goals Patient would like to increase right foot strength to improve walking. Prior Functional Status Baseline Function- ADL's Independent Baseline Function- Mobility Independent Baseline Function- Gait Gait difficulty due to right foot dropped with ability to walk > a block. Baseline Function- Work/School Patient is not currently working and is not on disability. Baseline Function- Other Patient able to perform light activities at home and she got help from her boyfriend and mother with heavy house chores . Current Functional Impairments (Reported) Functional Limitations- ADL's Unable to perform full house hold chores; laundry, outdoor errands and heavy tasks at home requires assistance. Personal care performed with difficulty Functional Limitations- Mobility/Gait Indep with out the use of AD in less than a block Functional Limitations- Work/School Not currently working Functional Limitations- Recreation/ Unable to do Hobbies Personal Factors Other Personal Factors That May Effect History of low back surgery, Therapy/Recovery Depression, 2 falls in the last 6 months with significant injury on last fall, Liver disease, seizure with last episode happen a year ago. PT-OP-C Subjective Start: 10/06/18 13:40 Freq: Status: Active Protocol: Document 02/21/19 11:45 LJ (Rec: 02/21/19 14:22 LJ [id number]) OP-PT Subjective Patient Comments Patient Comments Pt states her ankle is still stiff. She hasn't been doing much exercise or walking and intends to get to the pool on a regular basis if she can find a ride. PT-OP-D Balance Start: 10/06/18 13:40 Freq: Status: Active Protocol: Document 10/06/18 17:35 EA (Rec: 10/07/18 11:10 EA [id number]) OP-PT Balance Assessment Sitting Balance Static Sitting Balance Ability Normal Dynamic Sitting Balance Ability Normal Standing Balance Static Standing Balance Ability Good Dynamic Standing Balance Ability Fair Balance Tests Functional Reach Functional Reach Test 9 Functional Reach Impairment Rating 1 to <20% Impaired (Score 9) Single Limb Standing Single Limb- Right unable Single Limb- Left unable Semi-Tandem Standing Semi-Tandem Standing Balance Requires assist to position and last < 2 second Tandem Tandem Standing Unable Du Fall Scale Copyright Permission PT-OP-F Manual Assessment Start: 10/06/18 13:40 Freq: Status: Active Protocol: Document 10/06/18 17:35 EA (Rec: 10/07/18 11:10 EA [id number]) Manual Assessments Soft Tissue Assessment Soft Tissue Mobility Assessment Tightness to calf muscles, hip rotators, quads, hamstrings Joint Mobility Assessment Joint Mobility Assessment Normal TC joint mobility PT-OP-G Mobility & Gait Start: 10/06/18 13:40 Freq: Status: Active Protocol: Document 10/06/18 17:35 EA (Rec: 10/07/18 11:10 EA [id number]) OP Mobility Evaluation Bed Mobility Rolling Minimal difficulty but indep Supine to and from Sit Moderate difficulty but indep Transfers Sit to Stand Indep Bed to Chair Transfers indep Functional Movements Lifting and Carrying Indep Squats 45 deg Running Assessment unable OP Gait Assessment Gait Gait Assistance Required: Independent Able to Maintain Weight Bearing Status Yes During Gait Assistive Devices Assistive Device None Gait Deviations General Gait Pattern Antalgic,Decreased Feet Clearance,Wide Based Gait Comments Gait Comments Patient exhibits steppage gait with decreased WB to RLE Stair Climbing Evaluation Evaluation Level of Assist On Stairs Independent Devices Stair Climbing Assistive Devices Left Railing,Right Railing Technique/Endurance Stair Climbing Direction Ascend and Descend Stair Climbing Technique Step to Step Number of Steps Climbed 12 Comments Stair Climbing Comments slow w/ step to step gait with the use of both HR PT-OP-J Posture/Palpation/Skin Start: 10/06/18 13:40 Freq: Status: Active Protocol: Document 10/06/18 17:35 EA (Rec: 10/07/18 11:10 EA [id number]) Posture Evaluation Comments Posture Comments Rounded shoulder with increased lumbar curves and slight hip flex (fair posture) Palpation Assessment Location One Palpation Location ant. mid TC joint, base of 1st metatarsal joint Palpation Findings Tenderness Palpation Details Grade 2/4 tenderness Skin Assessment Circumference Measurement 1 Location mid TC joint Comments L=26 ; R=28 (slight right angle swelling but no signs of edema) PT-OP-K Range of Motion Start: 10/06/18 13:40 Freq: Status: Active Protocol: Document 10/06/18 17:35 EA (Rec: 10/07/18 11:10 EA [id number]) Shoulder Goniometric Range of Motion Shoulder ROM Limitations Shoulder ROM Limitations Soft Tissue Tightness,Muscle Weakness Comments Impaired left shoulder function with a history of shoulder surgery. Hip Goniometric Range of Motion Hip Left Active Flexion w/Knee Flexed 90 Extension 15 Internal Rotation 25 External Rotation 20 Right Active Flexion w/Knee Flexed 90 Extension 15 Abduction 45 Internal Rotation 25 External Rotation 15 Hip ROM Limitations Hip ROM Limitations Soft Tissue Tightness Knee Goniometric Range of Motion Knee Right Knee ROM WFL Yes Ankle and Foot Goniometric Range of Motion Ankle and Foot Right Active Dorsiflexion with Knee Flexed 10 Plantarflexion 45 Inversion 30 Eversion 20 Left Active Ankle/Foot ROM WFL Yes Dorsiflexion with Knee Flexed 20 Plantarflexion 45 Inversion 35 Eversion 25 PT-OP-L Special Tests Start: 10/06/18 13:40 Freq: Status: Active Protocol: Document 10/06/18 17:35 EA (Rec: 10/07/18 11:10 EA [id number]) Special Tests Foot/Ankle Special Tests Talor Tilt Test Results - PT-OP-M Strength Start: 10/06/18 13:40 Freq: Status: Active Protocol: Document 12/14/18 15:38 SAK (Rec: 12/14/18 16:16 SAK [id number]) Ankle/Foot Strength Ankle and Foot Manual Muscle Testing Right Dorsiflexion (L4) 3 Fair Plantarflexion (S1) 4- Good- Inversion 3+ Fair+ Eversion (S1) 3+ Fair+ Left Reason Not Measured WFL PT-OP-Q Treatments Start: 10/06/18 13:40 Freq: Status: Active Protocol: Document 01/06/19 15:07 SAK (Rec: 01/06/19 15:58 SAK [id number]) Cardio Equipment Recumbent Elliptical (Biodex) Duration (Minutes) 10 Resistance 4 Seat Position 6 Other LE's only last 5 min Gym Equipment Shuttle Balance Red Details N/W ANDRY, tandem Reps/Duration 6 min Comments balance and weight shifting fwd/bck, side/side Therapeutic Exercises Supine Exercises HC stretch Equipment Used manual Reps/Minutes 2x30, Sitting Exercises 3 way ankle Sitting Exercise Name inv, ever, DF Side right Reps/Minutes 15x2 each Comments assist for full df, then eccentric Standing Exercises heel walk Reps/Minutes 2x // bars backward walk Reps/Minutes 2x // bars hip ext Reps/Minutes 10x hip ab Reps/Minutes 10x tandem stand Reps/Minutes 4 min SLS Side bilateral Equipment Used at bar Reps/Minutes 3 x 5 Comments UE support HC stretch Side bilateral Equipment Used CARMINA Reps/Minutes 3 min Comments f/b isometric ankle DF Gait Training Gait Activity gait without device Level of Assistance verbal cues Comments mirror for visual feedback. Cues for heelstrike, push-off, decrease lateral sway. Wgt Shifting Description Motor relearning Surface firm level Treatment Focus Wgt shifting R & stepping with the R in proper position. PT-OP-R Modalities Start: 10/06/18 13:40 Freq: Status: Active Protocol: Document 01/06/19 15:07 SAK (Rec: 01/06/19 16:07 SAK [id number]) Hot Pack/Cold Pack Treatment Cold Pack Location R ankle ([id number]), CP to L ankle Patient Position Hooklying Patient Tolerance Good Comments LE's elevated above heart on bolster and wedge. PT-OP-S Aquatic Treatment Start: 01/17/19 17:04 Freq: Status: Active Protocol: Document 02/21/19 11:45 LJ (Rec: 02/21/19 14:22 LJ [id number]) Aquatics Treatment Pool Entry/Exit Pool Entry/Exit Method Stairs Assistance Standby Assistance Water Walking [place] March Water Level Chest Level Level of Assistance Verbal Cues Marching Water Level Chest Level Level of Assistance Verbal Cues Sideways Water Level Chest Level Level of Assistance Verbal Cues Backwards Water Level Chest Level Level of Assistance Verbal Cues Forwards Water Level Chest Level Level of Assistance Verbal Cues Lower Extremity Exercises hip corcumduction Body Position Standing Water Level Chest Level Reps/Duration 10x2 Comments bilat; both directions ab/add/flex/ext/ Body Position Standing Water Level Chest Level Reps/Duration 10x2 Comments handhold squats Body Position Standing Water Level Chest Level Reps/Duration 10x2 Comments hand hold on stairs knee flex/ext Body Position Standing Water Level Chest Level Reps/Duration 10x2 toe raises Body Position Standing Water Level Chest Level Reps/Duration 10x2 Comments handhold heel raises Body Position Standing Water Level Chest Level Reps/Duration 10x2 Comments handhold Lower Extremity Stretches ankle eversion/inversion Body Position Sitting Water Level Chest Level Reps/Duration 2x30 Comments bilat HS stretch Body Position Standing Water Level Chest Level Equipment Small Noodle Reps/Duration 2x HS Body Position Standing Water Level Chest Level Equipment Small Noodle Reps/Duration 2x30 HC Details heel drop on stair: florin and unil Body Position Standing Reps/Duration 2x30 Balance slow grounded monster steps Water Level Chest Level Reps/Duration 30m Comments no handhold SLS Reps/Duration 2 min Comments min UE support [place] Activities [place] Activities Bicycle Other Activities deep water hang 30 x 3 Equipment [place] float, 2# ea LE Duration 12 min PT-OP-T Assessment and Plan Start: 10/06/18 13:40 Freq: Status: Active Protocol: Document 02/21/19 11:45 CARRIE (Rec: 02/21/19 14:22 LJ [id number]) Physical Therapy Assessment Goals Four Impairment Two fall incidence in the last 6 months Group Home Goal (LTG) Patient will report no fall in the next 4 wks 11/26/18 No recent fall LTG Duration goal met Three Impairment Impaired gait Group Home Goal (LTG) Patient increased R ankle DF strength by 1/2 -1 grade to improve gait. 12/14/18: improved by 1/2 grade 01/31/19: no further change LTG Duration 01/25/19 Two Impairment Impaired distance ambulation Group Home Goal (LTG) Patient will ambulate > a block with no assistive device with improved gait 12/14/18: goal met NEW GOAL: patient able to walk community distances without assistive device with equal step length and weight shift mechanics and no LOB 01/31/19: continues to walk minimally in the community, exhibiting low activity level. LTG Duration 01/25/19 One Impairment FAAM score 20/75 Group Home Goal (LTG) FAAM score of 40/75 12/14/18: goal progress to 31/75 01/31/19: no further change. LTG Duration 01/25/19 Assessment Summary Assessment Pt states she feels the exercises but it doesn't cause pain. Pt was able to perform deep water exercises with mostly stable trunk. Required several manual cues for alignment. Pt was given HEP pool program which was reviewed and questions were answered. Physical Therapy Plan Frequency and Duration Frequency of Treatment 1 visit Duration of Treatment 4 wks Plan of Care Start Date 01/31/19 Plan of Care End Date 03/03/19 Therapeutic Interventions Therapeutic Interventions Balance Training,Gait Training ,Home Exercise Program,Joint Mobilizations,Manual Therapy, Neuromuscular Re-education, Patient/Caregiver Education, Self-Care/Home Management,Soft Tissue Mobilization,Taping, Therapeutic Exercises Modalities Cold Pack/Ice Massage,Electric Stimulation Next Visit Focus/Plan Next Note Type Treatment Note Next Visit Plan Pt given HEP for pool and is now discharged to independent aquatic exercise program.
--- NOTE | 2019-03-31 08:47 | PT.OPDS ---
Current Diagnoses Pain in right ankle and joints of right foot (02/21/19) Displaced fracture of lateral malleolus of left fibula, subsequent encounter for closed fracture with routine healing (02/21/19) Sprain of unspecified ligament of left ankle, subsequent encounter (02/21/19) Visit Care Team Role Provider Type Miguel Ángel Leary MD Primary Care Provider Physician Specialty: Internal Medicine Address: [address] [place] [address], [facility] [address], [place], [address] Email: [email or web address] Nikki Yang PA-C Attending Provider Physician Specialty: Orthopedic Surgery Address: [address] [place] [address], [place], [address] Fax: Email: [email or web address] Visit Number Visit Number 3 Discharge Summary PT-OP-B Current Condition Start: 10/06/18 13:40 Freq: Status: Active Protocol: Document 10/06/18 14:45 EA (Rec: 10/06/18 15:17 EA [id number]) Current Condition History of Current Condition Onset Date 07/17/2018 Current Complaints s/p right ankle sprain History of Current Condition Patient is a poor historian: Patient reports she tripped and fell at home and twisted her right ankle on July 17, 2018. Patient then went to [facility] on the same day and given pain meds and was on boot upon discharged. She stated saw her specialist and referred to PT and discharged using foot immobilzer two weeks ago. Medical reports identified and on September 30, 2018 that she underwent multiple joints diagnostic imaging with no significant fracture identified except with avulsion fracture at the base of the right big toe but requires further imaging. Patient is currently ambulating with no AD and states she has ankle brace but does not like to use it. Medical reports from patient clinic stated that she is clear for weight bearing as tolerated with the use of ankle brace and they are aware that patient is not compliant with recommended WB and AD. Prior Treatments and Tests Pain Medication, on a foot immobilizer until two weeks ago from todays date. Future Testing and Treatments Planned She will see her senior payroll specialist on the second week of October/2018 for follow up. Treatment Goals Patient/Caregiver Goals Patient would like to increase right foot strength to improve walking. Prior Functional Status Baseline Function- ADL's Independent Baseline Function- Mobility Independent Baseline Function- Gait Gait difficulty due to right foot dropped with ability to walk > a block. Baseline Function- Work/School Patient is not currently working and is not on disability. Baseline Function- Other Patient able to perform light activities at home and she got help from her boyfriend and mother with heavy house chores . Current Functional Impairments (Reported) Functional Limitations- ADL's Unable to perform full house hold chores; laundry, outdoor errands and heavy tasks at home requires assistance. Personal care performed with difficulty Functional Limitations- Mobility/Gait Indep with out the use of AD in less than a block Functional Limitations- Work/School Not currently working Functional Limitations- Recreation/ Unable to do Hobbies Personal Factors Other Personal Factors That May Effect History of low back surgery, Therapy/Recovery Depression, 2 falls in the last 6 months with significant injury on last fall, Liver disease, seizure with last episode happen a year ago. PT-OP-C Subjective Start: 10/06/18 13:40 Freq: Status: Active Protocol: Document 02/21/19 11:45 LJ (Rec: 02/21/19 14:22 LJ [id number]) OP-PT Subjective Patient Comments Patient Comments Pt states her ankle is still stiff. She hasn't been doing much exercise or walking and intends to get to the pool on a regular basis if she can find a ride. PT-OP-D Balance Start: 10/06/18 13:40 Freq: Status: Active Protocol: Document 10/06/18 17:35 EA (Rec: 10/07/18 11:10 EA [id number]) OP-PT Balance Assessment Sitting Balance Static Sitting Balance Ability Normal Dynamic Sitting Balance Ability Normal Standing Balance Static Standing Balance Ability Good Dynamic Standing Balance Ability Fair Balance Tests Functional Reach Functional Reach Test 9 Functional Reach Impairment Rating 1 to <20% Impaired (Score 9) Single Limb Standing Single Limb- Right unable Single Limb- Left unable Semi-Tandem Standing Semi-Tandem Standing Balance Requires assist to position and last < 2 second Tandem Tandem Standing Unable Du Fall Scale Copyright Permission PT-OP-F Manual Assessment Start: 10/06/18 13:40 Freq: Status: Active Protocol: Document 10/06/18 17:35 EA (Rec: 10/07/18 11:10 EA [id number]) Manual Assessments Soft Tissue Assessment Soft Tissue Mobility Assessment Tightness to calf muscles, hip rotators, quads, hamstrings Joint Mobility Assessment Joint Mobility Assessment Normal TC joint mobility PT-OP-G Mobility & Gait Start: 10/06/18 13:40 Freq: Status: Active Protocol: Document 10/06/18 17:35 EA (Rec: 10/07/18 11:10 EA [id number]) OP Mobility Evaluation Bed Mobility Rolling Minimal difficulty but indep Supine to and from Sit Moderate difficulty but indep Transfers Sit to Stand Indep Bed to Chair Transfers indep Functional Movements Lifting and Carrying Indep Squats 45 deg Running Assessment unable OP Gait Assessment Gait Gait Assistance Required: Independent Able to Maintain Weight Bearing Status Yes During Gait Assistive Devices Assistive Device None Gait Deviations General Gait Pattern Antalgic,Decreased Feet Clearance,Wide Based Gait Comments Gait Comments Patient exhibits steppage gait with decreased WB to RLE Stair Climbing Evaluation Evaluation Level of Assist On Stairs Independent Devices Stair Climbing Assistive Devices Left Railing,Right Railing Technique/Endurance Stair Climbing Direction Ascend and Descend Stair Climbing Technique Step to Step Number of Steps Climbed 12 Comments Stair Climbing Comments slow w/ step to step gait with the use of both HR PT-OP-J Posture/Palpation/Skin Start: 10/06/18 13:40 Freq: Status: Active Protocol: Document 10/06/18 17:35 EA (Rec: 10/07/18 11:10 EA [id number]) Posture Evaluation Comments Posture Comments Rounded shoulder with increased lumbar curves and slight hip flex (fair posture) Palpation Assessment Location One Palpation Location ant. mid TC joint, base of 1st metatarsal joint Palpation Findings Tenderness Palpation Details Grade 2/4 tenderness Skin Assessment Circumference Measurement 1 Location mid TC joint Comments L=26 ; R=28 (slight right angle swelling but no signs of edema) PT-OP-K Range of Motion Start: 10/06/18 13:40 Freq: Status: Active Protocol: Document 10/06/18 17:35 EA (Rec: 10/07/18 11:10 EA [id number]) Shoulder Goniometric Range of Motion Shoulder ROM Limitations Shoulder ROM Limitations Soft Tissue Tightness,Muscle Weakness Comments Impaired left shoulder function with a history of shoulder surgery. Hip Goniometric Range of Motion Hip Left Active Flexion w/Knee Flexed 90 Extension 15 Internal Rotation 25 External Rotation 20 Right Active Flexion w/Knee Flexed 90 Extension 15 Abduction 45 Internal Rotation 25 External Rotation 15 Hip ROM Limitations Hip ROM Limitations Soft Tissue Tightness Knee Goniometric Range of Motion Knee Right Knee ROM WFL Yes Ankle and Foot Goniometric Range of Motion Ankle and Foot Right Active Dorsiflexion with Knee Flexed 10 Plantarflexion 45 Inversion 30 Eversion 20 Left Active Ankle/Foot ROM WFL Yes Dorsiflexion with Knee Flexed 20 Plantarflexion 45 Inversion 35 Eversion 25 PT-OP-L Special Tests Start: 10/06/18 13:40 Freq: Status: Active Protocol: Document 10/06/18 17:35 EA (Rec: 10/07/18 11:10 EA [id number]) Special Tests Foot/Ankle Special Tests Talor Tilt Test Results - PT-OP-M Strength Start: 10/06/18 13:40 Freq: Status: Active Protocol: Document 12/14/18 15:38 SAK (Rec: 12/14/18 16:16 SAK [id number]) Ankle/Foot Strength Ankle and Foot Manual Muscle Testing Right Dorsiflexion (L4) 3 Fair Plantarflexion (S1) 4- Good- Inversion 3+ Fair+ Eversion (S1) 3+ Fair+ Left Reason Not Measured WFL PT-OP-T Assessment and Plan Start: 10/06/18 13:40 Freq: Status: Active Protocol: Document 03/31/19 08:44 SAK (Rec: 03/31/19 08:46 SAK [id number]) Physical Therapy Assessment Goals Four Impairment Two fall incidence in the last 6 months Shelter Goal (LTG) Patient will report no fall in the next 4 wks 11/26/18 No recent fall LTG Duration goal met Three Impairment Impaired gait Shelter Goal (LTG) Patient increased R ankle DF strength by 1/2 -1 grade to improve gait. 12/14/18: improved by 1/2 grade 01/31/19: no further change 02/21/19: no further change Two Impairment Impaired distance ambulation Box Finisher Goal (LTG) Patient will ambulate > a block with no assistive device with improved gait 12/14/18: goal met NEW GOAL: patient able to walk community distances without assistive device with equal step length and weight shift mechanics and no LOB 01/31/19: continues to walk minimally in the community, exhibiting low activity level. 02/21/19: patient gradually increasing activity level though this is variable despite much encouragement. One Impairment FAAM score 20/75 Box Finisher Goal (LTG) FAAM score of 40/75 12/14/18: goal progress to 31/75 01/31/19: no further change. 02/21/19: was not reassessed Physical Therapy Plan Discharge Physical Therapy Discharge Reasons Plateau in Progress Discharge Comments Insurance benefit exhausted as well. Patient is independent with HEP and aquatic exercise program.
== END 2019-02-21 16:00 ==
LOC: PHYS 11:45
PROVIDERS: PCP Student in an Organized Health Care Education/Training Program; Visit Provider Physician Assistant
DX: S93.402D Sprain of unspecified ligament of left ankle, subsequent encounter (principal); S82.62XD Displaced fracture of lateral malleolus of left fibula, subsequent encounter for closed fracture with routine healing; M25.571 Pain in right ankle and joints of right foot
CPT/HCPCS: 97010; 97032; 97035; 97110; 97112; 97113; 97116; 97140; 97162; 97535

== ENCOUNTER → 2019-12-13 16:43 | Outpatient (CLI) | payer OTHER, MEDICAID, SELFPAY ==
[2019-12-13 18:09] LABS: Add Manual Diff / Slide Review NO; Basophils Absolute Auto 100 /uL (0-100); Basophils Percent Auto 1.6 % (0-2); Eosinophils Absolute Auto 100 /uL (0-450); Eosinophils Percent Auto 1.9 % (2-4); Hematocrit 43.6 % (36-46); Lymphocytes Absolute Auto 2400 /uL (1100-4500); Lymphocytes Percent Auto 34.3 % (25-40); Mean Corpuscular HGB Conc 32.2 % (30-36); Mean Corpuscular Volume 77.6 fL (80-100); Monocytes Absolute Auto 500 /uL (0-900); Monocytes Percent Auto 6.5 % (3-14); Neutrophils Absolute Auto 4000 /uL (1500-7000); Neutrophils Percent Auto 55.7 % (50-75); Platelet Count 239 X10^3/uL (150-400); Red Blood Cell Count 5.62 X10^6/uL (4.0-5.2); Red Cell Distribution Width 17.2 % (11.6-14.8); White Blood Cell Count 7.1 X10^3/uL (4.5-11.0)
[2019-12-13 18:36] LABS: Erythrocyte Sedimentation Rate 5 MM/HR (0-20)
[2019-12-13 19:45] LABS: Alanine Aminotransferase 39 IU/L (<35); Albumin 4.5 g/dL (3.5-5.0); Albumin Globulin Ratio 1.5 (1.0-2.8); Alkaline Phosphatase 160 U/L (38-126); Aspartate Aminotransferase 49 IU/L (14-36); BUN Creatinine Ratio 24.5 (6-22); Bilirubin Total 0.9 mg/dL (0.2-1.3); Blood Urea Nitrogen 12 mg/dL (7-17); C-Reactive Protein Quant 2.8 mg/dL (<1.0); Calcium 9.4 mg/dL (8.4-10.2); Carbon Dioxide 39 mmol/L (22-32); Chloride 80 mmol/L (98-107); Estimated Glomerular Filt Rate > 60.0 mL/min (>60); Globulin 3.1 g/dL (1.7-4.1); Glucose 451 mg/dL (70-100); HEMOLYSIS < 15 (0-50); Potassium 3.2 mmol/L (3.4-5.1); Sodium 130 mmol/L (137-145); Total Protein 7.6 g/dL (6.3-8.2)
[2019-12-13 20:13] LABS: TSH w/ Reflex to FT4 9.87 uIU/mL (0.47-4.68)
[2019-12-13 20:26] LABS: Vitamin B12 940 pg/mL (239-931)
[2019-12-13 20:53] LABS: Free T4, Direct Thyroxine 1.91 ng/dL (0.78-2.19)
== END ==
PROVIDERS: PCP Student in an Organized Health Care Education/Training Program; Referring Provider Student in an Organized Health Care Education/Training Program; Visit Provider Student in an Organized Health Care Education/Training Program
DX: C73 Malignant neoplasm of thyroid gland (principal); E03.9 Hypothyroidism, unspecified; F10.10 Alcohol abuse, uncomplicated; F41.8 Other specified anxiety disorders; K70.30 Alcoholic cirrhosis of liver without ascites; M25.519 Pain in unspecified shoulder; R53.83 Other fatigue
CPT/HCPCS: 36415; 80053; 82306; 82607; 83036; 84439; 84443; 85025; 85651; 86140

== ENCOUNTER → 2019-12-13 17:29 | Outpatient (CLI) | payer OTHER, MEDICAID, SELFPAY ==
--- NOTE | 2019-12-13 17:38 | DI.RAD.S_ITS ---
PROCEDURE: XR SHOULDER LT MIN 2V INDICATIONS: Anterior shoulder pain TECHNIQUE: 3 views of the shoulder were acquired. COMPARISON: None. FINDINGS: Bones: No fractures or dislocations but there is what appears to be moderately severe to severe degenerative osteoarthritis at the glenohumeral joint. There is sclerosis within the medullary space of the humeral head, chronicity and etiology uncertain.. No suspicious bony lesions. Visualized ribs appear intact. Soft tissues: No suspicious soft tissue calcifications. IMPRESSION: Please correlate for whether prior trauma has occurred at the humeral head. There is an unusual pattern of sclerosis within the medullary space, which could be produced by trauma. Additionally, at the undersurface of the coracoid process there are 2 rounded radiodensities that may represent intra-articular loose bodies, measuring 9 mm and 10 mm respectively. Shoulder MRI may be warranted depending on the clinical status. Dictated by: Bradley Santoyo M.D. on 12/14/2019 at 10:14 Approved by: Bradley Santoyo M.D. on 12/14/2019 at 10:17
== END ==
PROVIDERS: PCP Student in an Organized Health Care Education/Training Program; Referring Provider Student in an Organized Health Care Education/Training Program; Visit Provider Student in an Organized Health Care Education/Training Program
DX: M25.512 Pain in left shoulder (principal); M19.012 Primary osteoarthritis, left shoulder; C73 Malignant neoplasm of thyroid gland; E03.9 Hypothyroidism, unspecified; F10.10 Alcohol abuse, uncomplicated; F41.8 Other specified anxiety disorders; K70.30 Alcoholic cirrhosis of liver without ascites; R53.83 Other fatigue
CPT/HCPCS: 36415; 73030; 80053; 82306; 82607; 83036; 84439; 84443; 85025; 85651; 86140

== ENCOUNTER → 2020-02-13 13:07 | Outpatient (CLI) | payer OTHER, MEDICAID, SELFPAY ==
--- NOTE | 2020-02-13 13:08 | DI.RAD.S_ITS ---
PROCEDURE: FL BARIUM SWALLOW INDICATIONS: Globus sensation; h/o esophageal stricture COMPARISON: None. FINDINGS: Function: There is normal esophageal peristalsis. No elicited gastroesophageal reflux. There is normal transit of a calibrated barium tablet through the esophagus into the stomach. Morphology: Air-contrast images demonstrate suggestion of intraluminal filling defect with narrowing of the upper cervical esophagus at approximately C4 and C5 levels with narrowing of the esophageal lumen. No other area of filling defect is seen. Single contrast views show no esophageal strictures, extrinsic mass effects, or diverticula. Limited images of the stomach demonstrate normal appearance. IMPRESSION: 1. Questionable filling defect within upper cervical esophagus at C4-5 level with narrowing of the upper cervical esophageal lumen. Endoscopic correlation is recommended. 2. No other filling defect or stricture is seen. No gastric or esophageal reflux. Dictated by: Michele Cox M.D. on 02/13/2020 at 14:52 Approved by: Michele Cox M.D. on 02/13/2020 at 15:00
== END ==
PROVIDERS: PCP Student in an Organized Health Care Education/Training Program; Referring Provider Student in an Organized Health Care Education/Training Program; Visit Provider Student in an Organized Health Care Education/Training Program
DX: K22.2 Esophageal obstruction (principal)
CPT/HCPCS: 74220

== ENCOUNTER 2020-02-19 13:58 | Emergency (ER) | payer OTHER, MEDICAID, SELFPAY ==
[2020-02-19 14:25] VITALS: BP 126/67; PULSE 66; RESP 15; TEMP 37; O2SAT 98; BMI 40.2
--- NOTE | 2020-02-19 14:44 | PC.NURSE ---
Visual examination reveals numerous dental caries upper and lower, right cheek swollen. Pt states onset of current dental pain started 4 days ago.
[2020-02-19 15:29] VITALS: BP 122/68
--- NOTE | 2020-02-20 00:52 | ED_ITS ---
HPI - Dental/Oral <DAISY Borrero - Last Filed: 02/20/20 01:14> General Chief complaint: Dental/Oral Stated complaint: absessed tooth, 10/10 pain scale Time Seen by Provider: 02/19/20 14:53 Source: patient Mode of arrival: Ambulatory Limitations: no limitations History of Present Illness HPI Narrative: This is a 49 year female, former smoker, who has history of hypertension, hypothyroidism, diabetes, leg swelling, dental abscess/caries presents to ED with her significant other with chief complain of possible dental abscess. According to patient she had a cyst on right upper gum and popped it 4 days ago. Next day, she noticed swelling on her face with increasing pain. states her face was worse with swelling yesterday with some improvement today. Patient denies fever, chills, nausea or vomiting. She denies chest pain, dyspnea, or near fainting episodes. Patient has been trying to be seen by dentist for oral surgery for tooth extraction due to for dental conditions but it has been difficult with insurance issues. Patient had used heating pad on affected side which helped with the pain. Patient reports reports mild blurred vision or right-side but denies pain with ocular movements. Patient rates pain as 10/10 and also reports some right anterior cervical adenopathy. Related Data Home Medications Medication Instructions Recorded Confirmed Complete Multivitamin 1 tab PO DAILY 04/13/18 02/21/20 aspirin 81 mg tablet,delayed 81 mg PO DAILY 12/17/19 02/21/20 release Saphris 10 mg SL 2200 02/21/20 02/21/20 omeprazole 20 mg PO DAILY 02/21/20 02/21/20 sertraline 50 mg PO DAILY 02/21/20 02/21/20 Previous Rx's Medication Instructions Recorded spironolactone 50 mg tablet 50 mg PO DAILY #90 tab 06/09/19 nadolol 40 mg tablet 40 mg PO DAILY #90 tab 06/24/19 furosemide 40 mg tablet 40 mg PO DAILY #90 tab 10/11/19 metformin 1,000 mg tablet 1,000 mg PO BID #180 tab 01/26/20 hydroxyzine HCl 50 mg tablet 50 mg PO TID PRN #90 tab 02/07/20 lisinopril 5 mg tablet 5 mg PO DAILY #90 tab 02/08/20 levothyroxine 200 mcg tablet 200 mcg PO DAILY #90 tab 02/14/20 clindamycin HCl 450 mg PO Q8HR 12 Days #108 cap 02/23/20 fluconazole 150 mg PO DAILY PRN #1 tab 02/23/20 levofloxacin 750 mg PO DAILY #12 tab 02/23/20 blood-glucose meter #1 each 02/24/20 Allergies Allergy/AdvReac Type Severity Reaction Status Date / Time Penicillins [PENICILLINS] Allergy Unknown Verified 02/21/20 12:32 Sulfa (Sulfonamide Allergy Unknown Verified 02/21/20 12:32 Antibiotics) [SULFA (SULFONAMIDE ANTIBIOTICS)] sulfamethoxazole Allergy Verified 02/21/20 12:32 [From Bactrim] trimethoprim [From Bactrim] Allergy Verified 02/21/20 12:32 Review of Systems <DAISY Borrero - Last Filed: 02/20/20 01:14> Review of Systems Narrative: General: Denies fever, chills, fatigue, malaise, sweats. HEENT: See HPI Respiratory: Denies dyspnea, cough, wheezing, hemoptysis, sputum. Cardiovascular: Denies chest pain, palpitations, orthopnea, edema. Gastrointestinal: Denies nausea, vomiting, abdominal pain, diarrhea, constipation, melena. : Denies dysuria, frequency, incontinence, hematuria, urinary retention. Musculoskeletal: Denies weakness, joint pain or bony pain. Skin: See HPI Neurologic: Denies weakness, headache, numbness, change in speech, confusion, seizures, incoordination. Psychiatric: No concerning psychosocial issues. 12-point review of systems is negative except for those stated above. Patient History <DAISY Borrero - Last Filed: 02/20/20 01:14> Medical History Anxiety (Chronic) Avascular necrosis (Chronic) Chicken pox (Resolved) Chlamydia (Resolved ~1988) Cirrhosis (Chronic) Colon polyp (Acute) COPD (chronic obstructive pulmonary disease) (Chronic) Depression (Chronic) Esophageal varices (Chronic) Esophageal web (Chronic) Hayfever (Chronic) Hemorrhoids (Chronic) Hypothyroidism (Chronic 1997) Irregular periods/menstrual cycles (Chronic) MRSA infection (Resolved) Pancytopenia (Chronic) Papillary adenocarcinoma of thyroid (Resolved) Seizures (Chronic) Shoulder pain (Chronic) Substance abuse (Chronic) Thyroid cancer (Resolved 02/1998) Surgical History Anesthesia complication (Resolved) History of adenoidectomy (Resolved) History of bunionectomy (Resolved) History of bunionectomy (Resolved) History of dilation and curettage (Resolved) History of esophageal surgery (Resolved 2016) History of left hip replacement (Resolved 08/2017) History of placement of ear tubes (Resolved) History of right hip replacement (Resolved 11/2017) History of tonsillectomy (Resolved) History of total thyroidectomy (Resolved 1997) Status post thyroidectomy (Inactive) Family History Father No problems noted. Mother Depression Hyperlipidemia Thyroid disorder Mental health problem Brother No problems noted. Grandfather Lung cancer Cancer Grandmother Thyroid disorder Potassium disorder Hyperlipidemia Hypertension Grandfather No problems noted. Grandmother No problems noted. Family/Other No problems noted. Social History household members: significant other Smoking Status: Former smoker alcohol intake: former substance use type: does not use Smoking Status: Former smoker alcohol intake frequency: 0-2 drinks per day Substance Use Type: marijuana Exam <DAISY Borrero - Last Filed: 02/20/20 01:14> Narrative Exam Narrative: GEN: Alert, oriented x 3, nontoxic appearing and nourished, and in no acute distress. Head: Normal cephalic, atraumatic. No scalp or temporal tenderness, palpable mass or rash. EYES: Pupils are equal, round, and reactive to light and accommodation. Extraocular muscles are intact bilaterally without discomfort. There is no subconjunctival hemorrhage, exudate and sclera non-icteric. ENT: Hearing grossly intact. Nose without bleeding, purulent discharge or deviation. Facial sinuses nontender to palpate. Mucous membrane moist, no mucosal lesion. Throat without erythema, tonsillar hypertrophy or exudate. Uvula in midline, airway patent. General poor dentition with multiple dental caries appreciated. The patient has pain on #6 tooth-caries on the base of the tooth, #4 tooth- partially broken off tooth without obvious drainage. Neck: Trachea in midline. No JVD, left anterior cervical lymphadenopathy to palpate. No masses or thyroid megaly. Supple, non-tender and no meningeal signs. CARDIAC: Normal regular rate and rhythm without murmurs, gallops, or rubs. No chest wall tenderness. No peripheral edema, cyanosis or pallor. Capillary refill is less than 2 seconds. RESPIRATORY: Lungs are clear to auscultate bilaterally. No cough, wheezes, rales, or rhonchi. No stridor, respiratory distress, increase work of breathing, or accessary muscle used. ABD: Abdomen soft, nontender and non-distended. No guarding or rebound tenderness to palpate. Bowel sounds are normal in all 4 quadrants. There is no palpable masses or organomegaly. EXT: Full painless ROM of all extremities with no loss of sensation, strength, effusion or edema. SKIN: Right-sided cheek mild warm, swelling, and erythema. Very mild swelling to right upper eye lid. Warm, dry, normal color for patient. BACK: Nontender without deformity or crepitance. No flank tenderness. NEUROLOGICAL: Alert and oriented to place, time and person. Sensation and motor function intact bilaterally. No facial droops, dysphasia. PSYCHIATRIC: Good judgement and reason, without hallucinations, abnormal affect or abnormal behaviors during the examination. Patient is not suicidal. Initial Vital Signs Initial Vital Signs: Vital Signs Temperature 98.6 F 02/19/20 14:25 Pulse Rate 66 02/19/20 14:25 Respiratory Rate 15 02/19/20 14:25 Blood Pressure 126/67 02/19/20 14:25 Pulse Oximetry 98 02/19/20 14:25 <Nellie Vazquez DO - Last Filed: 02/25/20 17:25> Initial Vital Signs Initial Vital Signs: Vital Signs Temperature 98.6 F 02/19/20 14:25 Pulse Rate 66 02/19/20 14:25 Respiratory Rate 15 02/19/20 14:25 Blood Pressure 126/67 02/19/20 14:25 Pulse Oximetry 98 02/19/20 14:25 Scores <DAISY Borrero - Last Filed: 02/20/20 01:14> GCS [place] coma scale eye opening: Spontaneous Magdi coma scale verbal response: Orientated Magdi coma scale motor response: Obey commands [place] coma scale total score: 15 qSOFA Altered Mental Status (GCS <15): No Respiratory rate greater than/equal to 22: No Systolic blood pressure less than or equal to 100: No qSOFA Total: 0 0-1 Not High Risk 1-3 High risk MDM - Dental/Oral <DAISY Borrero - Last Filed: 02/20/20 01:14> Differential Diagnosis Differential diagnosis: Likely gingival abscess, dental caries, dental abscess and fracture of tooth Medical Records Attestation: I reviewed the patient's medical records. MDM Narrative Medical decision making narrative: This is a 49-year-old female who presents to ED with right upper tooth dental caries and infection after she attempted to pop the cyst on the gum. Oral exam appreciated poor general dentition with multiple caries and partial fractured teeth. Right-sided face with mild swelling, warmth to touch with erythema indicating patient probably has dental abscess or infection. Patient is nontoxic appearing. Patient is afebrile with normal heart rate and blood pressure with RR. Patient does not endorses constitutional symptoms. Patient has intact extraocular motion without pain. Lab tests and imaging tests are deferred at this time. Patient discharged to home with clindamycin 450 mg t.i.d. dose for 7 day course due to patient has antibiotic medication allergies to penicillin, sulfa family. Informed that patient requires dental evaluation and treatment for her dental condition and referral information to [facility] provided. Also informed that [facility] has a program offering dental care with affordable fee. Patient advised to take [id number] Tylenol and Motrin as needed for discomfort and to use cool/warm pack on affected site for swelling and pain. Strict return precautions were discussed with patient and she verbalized understanding in agreement with the treatment plan. Patient advised to take [id number] Tylenol and Motrin as needed for discomfort. DR. Vazquez consulted with treatment plan with patient's HPI, physical exam, vital signs. Discharge Plan Departure Patient Disposition: Home Clinical Impression: Abscess, dental Discharge Date/Time: 02/19/20 15:30 Instructions: Tooth Abscess, DI for Dental Pain Activity Restrictions/Additional Instructions: You have been diagnosed with [right-sided upper tooth/teeth dental abscess. Please start taking clindamycin 450 mg 3 times a day for next 7 days]. What to do: *Take your medications as directed. Antibiotic medication, clindamycin. Please take [id number] Tylenol and or Motrin as needed for discomfort. Tylenol 650-1000 mg up to 3 to 4 times a day as needed. Ibuprofen 400-600 mg up to 3 to 4 times a day as needed for pain and inflammation with food to decrease GI irritation. Clindamycin has been transmitted to [facility]. *Follow up with your primary care provider in 2-3 days, call for an appointment and dentist as planned. Let them know you were seen in the ED and that we asked you to be seen in follow up. Please contact [facility] at [place] or [place] and you can be seen soon. *Return to ED if you have any new, worsening, or concerning symptoms, such as [worsening pain, fever, chills, unable to tolerate fluids, breathing difficulty, chest pain, increasing redness/warmth/swelling on your face, difficulty swallowing, pain in the eye or any acute concerns]. Prescriptions: No Action spironolactone 50 mg tablet 50 mg PO DAILY Qty: 90 RF: 3 nadolol 40 mg tablet 40 mg PO DAILY Qty: 90 RF: 3 furosemide 40 mg tablet 40 mg PO DAILY Qty: 90 RF: 1 aspirin [Adult Low Dose Aspirin] 81 mg tablet,delayed release (DR/EC) 81 mg PO DAILY RF: 0 hydroxyzine HCl 50 mg tablet 50 mg PO TID PRN (Reason: anxiety) Qty: 90 RF: 5 lisinopril 5 mg tablet 5 mg PO DAILY Qty: 90 RF: 0 levothyroxine 200 mcg tablet 200 mcg PO DAILY Qty: 90 RF: 3 (DME) blood-glucose meter [Glucocard Expression] Kit See Rx Instructions .ROUTE .MEDSUPPLY Qty: 1 RF: 0 metformin 1,000 mg tablet 1,000 mg PO BID Qty: 180 RF: 1 Complete Multivitamin Tablet 1 tab PO DAILY RF: 0 Saphris 5 mg tablet, sublingual 10 mg SL 2200 RF: 0 omeprazole 20 mg capsule,delayed release(DR/EC) 20 mg PO DAILY RF: 0 sertraline 50 mg tablet 50 mg PO DAILY RF: 0 clindamycin HCl 150 mg Capsule 450 mg PO Q8HR 12 Days Qty: 108 RF: 0 levofloxacin 250 mg Tablet 750 mg PO DAILY Qty: 12 RF: 0 fluconazole 150 mg tablet 150 mg PO DAILY PRN (Reason: yeast infection) Qty: 1 RF: 0 Referrals: Miguel Ángel Leary MD [Primary Care Provider] -
== END 2020-02-19 15:30 | disposition home or self-care (01) ==
PROVIDERS: Emergency Provider Nurse Practitioner Family; PCP Student in an Organized Health Care Education/Training Program
DX: K04.7 Periapical abscess without sinus (principal)
CPT/HCPCS: 99281

== ENCOUNTER 2020-02-21 12:20 | Observation (INO) | payer OTHER, MEDICAID, SELFPAY ==
[2020-02-21 12:28] VITALS: BP 131/76; PULSE 62; RESP 14; TEMP 36; O2SAT 96; BMI 40.2
--- NOTE | 2020-02-21 15:06 | ED.DENTAL ---
HPI - Dental/Oral General Chief complaint: Dental/Oral Stated complaint: ABSCESS TOOTH Time Seen by Provider: 02/21/20 15:05 Source: patient and family Mode of arrival: Ambulatory History of Present Illness HPI Narrative: Patient on antibiotics for the past couple days for dental abscess. Worsening with swelling of the right-side face. History of poor dentition Teeth map: 1. Pointing fluctuance/abscess Related Data Home Medications Medication Instructions Recorded Confirmed multivitamin,[id number] 1 tab PO DAILY 04/13/18 01/26/20 [Complete Multivitamin] aspirin 81 mg tablet,delayed 81 mg PO DAILY 12/17/19 01/26/20 release asenapine maleate [Saphris] mg SUBLINGUAL 02/20/20 Previous Rx's Medication Instructions Recorded clotrimazole 1 % topical cream 1 applictn TOP BID #28 gram 11/04/18 spironolactone 50 mg tablet 50 mg PO DAILY #90 tab 06/09/19 nadolol 40 mg tablet 40 mg PO DAILY #90 tab 06/24/19 omeprazole 20 mg capsule,delayed 20 mg PO BID #180 cap 08/17/19 release furosemide 40 mg tablet 40 mg PO DAILY #90 tab 10/11/19 asenapine maleate 5 mg sublingual 5 mg SL BID #60 tab 12/14/19 tablet sertraline 50 mg tablet See Rx Instructions .ROUTE 12/22/19 .COMPLEX #30 tab metformin 1,000 mg tablet 1,000 mg PO BID #180 tab 01/26/20 hydroxyzine HCl 50 mg tablet 50 mg PO TID PRN #90 tab 02/07/20 lisinopril 5 mg tablet 5 mg PO DAILY #90 tab 02/08/20 levothyroxine 200 mcg tablet 200 mcg PO DAILY #90 tab 02/14/20 clindamycin HCl 150 mg PO Q8H 7 Days #21 cap 02/19/20 clindamycin HCl 300 mg PO Q8H 7 Days #21 cap 02/19/20 Allergies Allergy/AdvReac Type Severity Reaction Status Date / Time Penicillins [PENICILLINS] Allergy Unknown Verified 02/21/20 12:32 Sulfa (Sulfonamide Allergy Unknown Verified 02/21/20 12:32 Antibiotics) [SULFA (SULFONAMIDE ANTIBIOTICS)] sulfamethoxazole Allergy Verified 02/21/20 12:32 [From Bactrim] trimethoprim [From Bactrim] Allergy Verified 02/21/20 12:32 Review of Systems Review of Systems Narrative: GENERAL: Denies chills, fatigue, malaise, fever, sweats. HEENT: Denies sinus pain, ear pain, sore throat, difficulty swallowing, pain and swelling at the right upper gumline around tooth 5. RESPIRATORY: Denies dyspnea, cough CARDIOVASCULAR: Denies chest pain, palpitations, edema, GASTROINTESTINAL: Denies nausea, vomiting, abdominal pain, diarrhea, constipation, melena. : Denies dysuria, frequency, hematuria MUSCULOSKELETAL: denies muscle or bony pain SKIN: Denies rash, skin lesions NEUROLOGIC: Denies weakness, headache, numbness, change in speech, confusion PSYCHIATRIC: No SI or HI or hallucinations ROS Unobtainable: All systems reviewed & are unremarkable except as noted in HPI and below Patient History Medical History Anxiety (Chronic) Avascular necrosis (Chronic) Chicken pox (Resolved) Chlamydia (Resolved ~1988) Cirrhosis (Chronic) Colon polyp (Acute) COPD (chronic obstructive pulmonary disease) (Chronic) Depression (Chronic) Esophageal varices (Chronic) Esophageal web (Chronic) Hayfever (Chronic) Hemorrhoids (Chronic) Hypothyroidism (Chronic 1997) Irregular periods/menstrual cycles (Chronic) MRSA infection (Resolved) Pancytopenia (Chronic) Papillary adenocarcinoma of thyroid (Resolved) Seizures (Chronic) Shoulder pain (Chronic) Substance abuse (Chronic) Thyroid cancer (Resolved 02/1998) Surgical History Anesthesia complication (Resolved) History of adenoidectomy (Resolved) History of bunionectomy (Resolved) History of bunionectomy (Resolved) History of dilation and curettage (Resolved) History of esophageal surgery (Resolved 2016) History of left hip replacement (Resolved 08/2017) History of placement of ear tubes (Resolved) History of right hip replacement (Resolved 11/2017) History of tonsillectomy (Resolved) History of total thyroidectomy (Resolved 1997) Status post thyroidectomy (Inactive) Family History Father No problems noted. Mother Depression Hyperlipidemia Thyroid disorder Mental health problem Brother No problems noted. Grandfather Lung cancer Cancer Grandmother Thyroid disorder Potassium disorder Hyperlipidemia Hypertension Grandfather No problems noted. Grandmother No problems noted. Family/Other No problems noted. Social History Smoking Status: Former smoker alcohol intake: former substance use type: does not use Smoking Status: Former smoker alcohol intake frequency: 0-2 drinks per day Substance Use Type: marijuana Exam Narrative Exam Narrative: GENERAL: patient appears stated age. Well-nourished, well-developed patient, in no distress, not toxic not dyspneic HEAD: Normocephalic. EYES: Pupils equal round and reactive. No scleral icterus. No injection no discharge ENT: Mucous membranes moist. No drooling no tongue elevation no trismus no malocclusion, mild to moderate facial swelling of the maxilla. No erythema. There is abscess with fluctuance at around tooth 5. NECK: Trachea midline. Non tender CARDIOVASCULAR: Regular rate and rhythm without murmurs, gallops, or rubs. RESPIRATORY: Clear to auscultation. Breath sounds equal bilaterally. No wheezes, rales, or rhonchi. GASTROINTESTINAL: Abdomen soft, non-tender, nondistended. EXTREMITIES: No gross deformities. BACK: Nontender without deformity or crepitance. No flank tenderness. NEURO: AOx4. SKIN: Warm and dry PSYCH: Not anxious, is cooperative Initial Vital Signs Initial Vital Signs: Vital Signs Temperature 96.8 F L 02/21/20 12:28 Pulse Rate 62 02/21/20 12:28 Respiratory Rate 14 02/21/20 12:28 Blood Pressure 131/76 02/21/20 12:28 Pulse Oximetry 96 02/21/20 12:28 Course Course Course Narrative: Prepping for drainage of abscess, patient states the abscess has already drained. On re-evaluation she is correct. Fluctuance no longer at abscess site and drainage present. Decision to Admit Date: 02/21/20 Decision to Admit time: 16:50 Orders Ordered: ED Orders 02/21/20 15:06 CT facial bones w con Stat 02/21/20 15:20 Complete Blood Count AUTO DIFF Stat Comprehensive Metabolic Panel Stat Test Serum,Qual Stat Discontinued Medications Hydromorphone HCl (Dilaudid) 1 mg IV NOW ONE Stop: 02/21/20 16:37 Last Admin: 02/21/20 17:35 Dose: 1 mg Documented by: YANY Sodium Chloride (Normal Saline 0.9%) 500 mls @ 1,000 mls/hr IV BOLUS ONE Stop: 02/21/20 15:35 Last Admin: 02/21/20 15:44 Dose: 1,000 mls/hr Documented by: PAVANINOR Clindamycin Phosphate (Cleocin) 600 mg in 50 mls @ 50 mls/hr IV NOW ONE Stop: 02/21/20 17:36 Last Admin: 02/21/20 17:00 Dose: 50 mls/hr Documented by: YANY Ondansetron HCl (Zofran) 4 mg IV NOW ONE Stop: 02/21/20 16:37 Last Admin: 02/21/20 16:59 Dose: 4 mg Documented by: CHRISTINAR Reevaluation(s) Reevaluation #1: Pain control. Feeling better after drainage of the abscess spontaneously Time: 16:50 Consultations Consultation #1: Spoke with hospitalist Dr. Bello will admit. I informed her that I did speak with oral maxilla provider...dr rae.. He will see patient after discharge from the hospital in the office Time: 16:51 Vital Signs Vital signs: Vital Signs - 8 hr 02/21/20 12:28 Temperature 96.8 F L Pulse Rate 62 Respiratory Rate 14 Blood Pressure 131/76 Pulse Oximetry 96 MDM - Dental/Oral Differential Diagnosis Differential diagnosis: Likely dental caries, dental abscess and other (Facial abscess) Medical Records Attestation: I reviewed the patient's medical records. Lab Data Attestation: I reviewed the patient's lab results. Result diagrams: 02/21/20 15:20 02/21/20 15:20 Labs: Lab Results 02/21/20 02/21/20 02/21/20 Range/Units 15:20 15:20 15:20 WBC 12.1 H (4.5-11.0) X10^3/uL RBC 4.87 (4.0-5.2) X10^6/uL Hgb 13.2 (12.0-16.0) g/dL Hct 40.0 (36-46) % MCV 82.2 (80-100) fL MCH 27.0 (26-34) PG MCHC 32.9 (30-36) % RDW 15.8 H (11.6-14.8) % Plt Count 304 (150-400) X10^3/uL Neut % (Auto) 72.8 (50-75) % Lymph % (Auto) 20.4 L (25-40) % [place] % (Auto) 5.0 (3-14) % Eos % (Auto) 0.8 L (2-4) % Baso % (Auto) 1.0 (0-2) % Neut # (Auto) 8800 H (7247-3285) /uL Lymph # (Auto) 2500 (8169-2858) /uL [place] # (Auto) 600 (0-900) /uL Eos # (Auto) 100 (0-450) /uL Baso # (Auto) 100 (0-100) /uL Sodium 134 L (137-145) mmol/L Potassium 3.8 (3.4-5.1) mmol/L Chloride 92 L (98-107) mmol/L Carbon Dioxide 36 H (22-32) mmol/L BUN 10 (7-17) mg/dL Creatinine 0.50 L (0.52-1.04) mg/dL Estimated GFR > 60.0 (>60) mL/min BUN/Creatinine Ratio 20.0 (6-22) Glucose 296 H (70-100) mg/dL Calcium 9.6 (8.4-10.2) mg/dL Total Bilirubin 0.8 (0.2-1.3) mg/dL AST 22 (14-36) IU/L ALT 25 (<35) IU/L Alkaline Phosphatase 156 H (38-126) U/L Total Protein 8.3 H (6.3-8.2) g/dL Albumin 4.4 (3.5-5.0) g/dL Globulin 3.9 (1.7-4.1) g/dL Albumin/Globulin Ratio 1.1 (1.0-2.8) Serum , Qual Negative (Negative) Imaging Data CT scan face with IV contrast: Radiologist's Impression: [address] [address] [address] Scan Report Signed Patient: Yin Burch LMR#: [id number] : 1970Acct:[id number] Age/Sex: 49 / FDate of Service: 02/21/20 Loc: ED Accession Number: [id number] Procedure: CT facial bones w con Ordering Provider: Jayesh Estrella MD PROCEDURE: CT FACIAL BONES W CON INDICATIONS: Right facial pain and swelling TECHNIQUE: After the administration of intravenous contrast, 2.5 mm axial sections acquired from the mid-neck to the frontal sinuses, with coronal and sagittal reformats. For radiation dose reduction, the following was used: automated exposure control, adjustment of mA and/or kV according to patient size. COMPARISON: [facility], CT, CT HEAD/BRAIN WO CON, 04/13/2018, 13:29. [facility], CT, CT HEAD/BRAIN WO CON, 09/30/2018, 20:41. FINDINGS: Image quality: Excellent. Soft tissues: Adjacent to the right posterior molars and sits lateral to the right maxillary sinus, there is a focal mild fluid collection seen that measures up to 1.8 cm, as on series 6 image 24 and on series 3, image 34. Mild rim enhancement can be seen. Vascular: Visualized vascular structures appear patent throughout. Bony vascular foramina and canals appear normal. Bones: Poor dentition is seen, including diseased teeth involving the right posterior maxillary molars. There is mild periapical lucency seen adjacent to the posterior most right maxillary molar, as on series 4, image 24 and on series 5, image 41. Facial bones appear intact, without fractures, erosions, or destruction. Visualized portions of the skull base and auditory canals also appear normal. Sinuses: Paranasal sinuses are aerated without fluid levels, mucosal thickening, or mucoceles. Mastoid air cells are aerated. IMPRESSION: There is a 1.8 cm rim enhancing fluid collection seen involving the soft tissues just lateral to the right maxillary molars and the right maxillary sinus, which is consistent with a soft tissue abscess. Poor dentition is seen and there is periapical lucency seen adjacent to the posterior most right maxillary molar, with which is attributed to a tooth abscess. Dictated by: Irwin Mejia M.D. on 02/21/2020 at 14:50 Approved by: Irwin Mejia M.D. on 02/21/2020 at 14:54 [facility] Narrative Medical decision making narrative: Spoke with Oral maxillofacial dr paniagua.. He states he can see patient in the office after admission. Appropriate for IV therapy here admission. Discharge Plan Departure Patient Disposition: Admitted as Observation Clinical Impression: Abscess of face, Abscess, dental Referrals: Miguel Ángel Leary MD [Primary Care Provider] - Admit Date/Time: 02/21/20 17:03 Admit Provider: Yessi Bello
[2020-02-21 15:36] LABS: Add Manual Diff / Slide Review NO; Basophils Absolute Auto 100 /uL (0-100); Eosinophils Absolute Auto 100 /uL (0-450); Eosinophils Percent Auto 0.8 % (2-4); Hemoglobin 13.2 g/dL (12.0-16.0); Lymphocytes Absolute Auto 2500 /uL (1100-4500); Lymphocytes Percent Auto 20.4 % (25-40); Mean Corpuscular HGB Conc 32.9 % (30-36); Mean Corpuscular Volume 82.2 fL (80-100); Monocytes Absolute Auto 600 /uL (0-900); Neutrophils Absolute Auto 8800 /uL (1500-7000); Neutrophils Percent Auto 72.8 % (50-75); Platelet Count 304 X10^3/uL (150-400); Red Blood Cell Count 4.87 X10^6/uL (4.0-5.2); Red Cell Distribution Width 15.8 % (11.6-14.8); White Blood Cell Count 12.1 X10^3/uL (4.5-11.0)
[2020-02-21] MEDS: SODIUM CHLORIDE 0.9% 500 ML 1000 ML IV (15:44)
[2020-02-21 15:46] LABS: Pregnancy Test Serum,Qual Negative (Negative)
[2020-02-21 15:50] LABS: Alanine Aminotransferase 25 IU/L (<35); Albumin 4.4 g/dL (3.5-5.0); Albumin Globulin Ratio 1.1 (1.0-2.8); Alkaline Phosphatase 156 U/L (38-126); Aspartate Aminotransferase 22 IU/L (14-36); Bilirubin Total 0.8 mg/dL (0.2-1.3); Blood Urea Nitrogen 10 mg/dL (7-17); Calcium 9.6 mg/dL (8.4-10.2); Carbon Dioxide 36 mmol/L (22-32); Chloride 92 mmol/L (98-107); Estimated Glomerular Filt Rate > 60.0 mL/min (>60); Globulin 3.9 g/dL (1.7-4.1); Glucose 296 mg/dL (70-100); HEMOLYSIS < 15 (0-50); Potassium 3.8 mmol/L (3.4-5.1); Sodium 134 mmol/L (137-145); Total Protein 8.3 g/dL (6.3-8.2)
[2020-02-21] MEDS: ONDANSETRON 4 MG/2 ML INJ IV (16:59)
[2020-02-21] MEDS: CLINDAMYCIN 600 MG/50 ML PIGGYBACK 50 MG IV (17:00)
[2020-02-21] MEDS: HYDROMORPHONE 1 MG INJ IV (17:35)
--- NOTE | 2020-02-21 17:55 | PC.NURSE ---
R side facial swelling
[2020-02-21 18:05] VITALS: BP 105/66; PULSE 62; RESP 16; O2SAT 92
[2020-02-21 18:18] LABS: COVID19 -Nasal RAPID Negative (Negative)
[2020-02-21 19:13] VITALS: BP 113/70; PULSE 64; RESP 16; O2SAT 99
[2020-02-21] MEDS: METFORMIN HCL 500 MG TABLET 1000 MG PO (19:39)
[2020-02-21 19:40] VITALS: BP 114/69; PULSE 61; RESP 16; TEMP 36.7; O2SAT 96
[2020-02-21 19:42] VITALS: BMI 40.1
[2020-02-21 20:00] LABS: Magnesium 1.3 mg/dL (1.6-2.3)
[2020-02-21] MEDS: SODIUM CHLORIDE 0.9% 1,000 ML 50 ML IV (20:10)
[2020-02-21] MEDS: OXYCODONE IR 10 MG TABLET PO (20:10)
[2020-02-21 20:20] LABS: Procalcitonin < 0.05 ng/mL (<0.5)
--- NOTE | 2020-02-21 21:27 | P.HP_ITS ---
History of Present Illness History of Present Illness Date Patient Seen: 02/21/20 Time Patient Seen: 20:40 Chief complaint: ABSCESS TOOTH Narrative: Ms. Yin Burch is a 49 old female with a past medical history significant for diabetes type 2, liver cirrhosis with esophageal varices (S/P banding x6, paracentesis in 2016), seizures Dr. carrillo related to alcohol, diabetes type 2, thyroid cancer (s/p total thyroidectomy, 1997) with acquired hypothyroidism, depression anxiety who presents the ER for worsening facial. The patient has been seen at [facility] following a comes cyst that popped with progressive swelling on 02/19/2020. She is diagnosed with dental abscess and started on clindamycin 450 mg every 8 hours. Since then she since has had worsening right facial pain and swelling. She denies systemic symptoms of fevers or chills nausea vomiting headaches or dizziness. Upon arrival here she describes her pain as 10 out 10 on examination the abscess is began draining. The patient does have a history of cirrhosis and quit drinking 2 months ago. The patient denies complaints chest pain as remote history of palpitations but none for years. She endorses 2 syncopal episodes last being 4 months ago while on the commode waking up on the floor for which she was not evaluate. She reports a history of ?lung problems? and has been a social smoker in the past but had extensive secondhand smoke exposures a child has had no complaints of shortness of breath cough or wheezing. She denies complaints of abdominal pain, nausea vomiting, diarrhea or constipation. She reports no urinary changes. She does have a history of MRSA and reports having had multiple infections around her body. One of the ER she is afebrile with a temperature 96.8?, heart rate of 62, blood pressure 131/76, respiratory rate of 14 saturating 96% on room air. She underw ent CT which finds a 1.8 cm rim enhancing fluid collection involving soft tissue adjacent to the right maxillary molars and maxillary sinus with poor dentition. On laboratory analysis she has an elevated white count at 12.1, hemoglobin of 13.2, hematocrit of 40 with platelets of 304. Chemistries are notable for sodium 134 and magnesium 1.3. BUN and creatinine are 10 and 0.5 respectively and she has an elevated nonfasting glucose of 296. Total bilirubin 0.8, AST 22, ALT 25 and alkaline phosphatase 156. Her albumin is 0.4. Procalcitonin is less than 0.05. Serum is negative and covered screening is negative. The patient is admitted to the medicine service for right facial cellulitis. PCP: Dr. German Patient History Medical History Anxiety (Chronic) Avascular necrosis (Chronic) Chicken pox (Resolved) Chlamydia (Resolved ~1988) Cirrhosis (Chronic) Colon polyp (Acute) COPD (chronic obstructive pulmonary disease) (Chronic) Depression (Chronic) Esophageal varices (Chronic) Esophageal web (Chronic) Hayfever (Chronic) Hemorrhoids (Chronic) Hypothyroidism (Chronic 1997) Irregular periods/menstrual cycles (Chronic) MRSA infection (Resolved) Pancytopenia (Chronic) Papillary adenocarcinoma of thyroid (Resolved) Seizures (Chronic) Shoulder pain (Chronic) Substance abuse (Chronic) Surgical History Anesthesia complication (Resolved) History of adenoidectomy (Resolved) History of bunionectomy (Resolved) History of dilation and curettage (Resolved) History of esophageal surgery (Resolved 2016) History of left hip replacement (Resolved 08/2017) History of placement of ear tubes (Resolved) History of right hip replacement (Resolved 11/2017) History of tonsillectomy (Resolved) History of total thyroidectomy (Resolved 1997) Family & Social History Family History Father No problems noted. Mother Depression Hyperlipidemia Thyroid disorder Mental health problem Brother No problems noted. Grandfather Lung cancer Cancer Grandmother Thyroid disorder Potassium disorder Hyperlipidemia Hypertension Grandfather No problems noted. Grandmother No problems noted. Family/Other No problems noted. Social History: household members significant other Prior Living Arrangements House Safety & Behavioral: Feels Safe in Current Yes Environment Been Physically Hurt or No Threatened By a Person Suicidal Ideation Description None Tobacco & Substance use: Smoking Status Former smoker alcohol intake former alcohol intake frequency 0-2 drinks per day Substance Use Type marijuana Meds Home Medications and Allergies Home Medications Medication Instructions Recorded Confirmed Type multivitamin,[id number] 1 tab PO DAILY 04/13/18 02/21/20 History [Complete Multivitamin] spironolactone 50 mg tablet 50 mg PO DAILY #90 tab 06/09/19 02/21/20 Rx nadolol 40 mg tablet 40 mg PO DAILY #90 tab 06/24/19 02/21/20 Rx furosemide 40 mg tablet 40 mg PO DAILY #90 tab 10/11/19 02/21/20 Rx aspirin 81 mg tablet,delayed 81 mg PO DAILY 12/17/19 02/21/20 History release metformin 1,000 mg tablet 1,000 mg PO BID #180 tab 01/26/20 02/21/20 Rx hydroxyzine HCl 50 mg tablet 50 mg PO TID PRN #90 tab 02/07/20 02/21/20 Rx lisinopril 5 mg tablet 5 mg PO DAILY #90 tab 02/08/20 02/21/20 Rx levothyroxine 200 mcg tablet 200 mcg PO DAILY #90 tab 02/14/20 02/21/20 Rx asenapine maleate [Saphris] 10 mg SL 2200 02/21/20 02/21/20 History clindamycin HCl 450 mg PO Q8H 02/21/20 02/21/20 History omeprazole 20 mg PO DAILY 02/21/20 02/21/20 History sertraline 50 mg PO DAILY 02/21/20 02/21/20 History Allergies Allergy/AdvReac Type Severity Reaction Status Date / Time Penicillins [PENICILLINS] Allergy Unknown Verified 02/21/20 12:32 Sulfa (Sulfonamide Allergy Unknown Verified 02/21/20 12:32 Antibiotics) [SULFA (SULFONAMIDE ANTIBIOTICS)] sulfamethoxazole Allergy Verified 02/21/20 12:32 [From Bactrim] trimethoprim [From Bactrim] Allergy Verified 02/21/20 12:32 Review of Systems Review of Systems ROS: Yes All systems reviewed with the patient and are negative except as otherwise documented Exam Vital Signs (past 8 hours): - 02/21/20 18:05 02/21/20 19:13 02/21/20 19:40 Temperature 98.0 F Pulse Rate 62 64 61 Respiratory Rate 16 16 16 Blood Pressure 105/66 113/70 114/69 Pulse Oximetry 92 99 96 Oxygen Delivery Method Room Air Oxygen Flow Rate 0 Narrative Exam Narrative: GENERAL APPEARANCE: well developed, obese female with a BMI of 40.1 semi recumbent in bed in no acute distress. HEENT: Swelling right cheek from zygoma to mandible, PERRLA, conjunctiva clear, sclera anicteric EOMs intact without nystagmus, no rhinorrhea, mucous membranes are moist and pink swelling to the right maxillary gingiva and thickening of the soft tissues of the cheek, pain on palpation zygoma to TMJ to mandible, multiple fractured teeth and dental caries. NECK/THYROID: neck supple, no JVD, no stridor, trachea midline. LYMPH NODES: Right cervical lymphadenopathy, no supraclavicular lymphadenopathy. SKIN: [place], warm and dry, no visible lesions, rashes. HEART: regular rate and rhythm, S1-S2, no murmur, no rubs or gallops, brisk capillary refill, no edema LUNGS: clear to auscultation bilaterally, no coarseness crackles or wheezing, no cough present CHEST: Symmetrical movement, no accessory muscle use, good tidal volume. ABDOMEN: Soft, protuberant, tympanitic to percussion, no abdominal tenderness, no organomegaly, no flank or suprapubic tenderness, active bowel tones. BACK: Normal curvature, nontender to palpation. EXTREMITIES: moves all extremities, strength is 5/5 and symmetrical, decreased dorsiflexion right foot. NEUROLOGIC: AAO x3, no focal neurologic deficits, sensation intact to light touch, hearing grossly normal to speech. PSYCH: Good eye contact, decreased blink, responsive and cooperative, appropriate with stable behavior Objective Labs Result Diagrams: 02/21/20 15:20 02/21/20 15:20 Labs: Laboratory Results - last 24 hr 02/21/20 02/21/20 02/21/20 15:20 15:20 15:20 WBC 12.1 H RBC 4.87 Hgb 13.2 Hct 40.0 MCV 82.2 MCH 27.0 MCHC 32.9 RDW 15.8 H Plt Count 304 Neut % (Auto) 72.8 Lymph % (Auto) 20.4 L [place] % (Auto) 5.0 Eos % (Auto) 0.8 L Baso % (Auto) 1.0 Neut # (Auto) 8800 H Lymph # (Auto) 2500 [place] # (Auto) 600 Eos # (Auto) 100 Baso # (Auto) 100 Sodium 134 L Potassium 3.8 Chloride 92 L Carbon Dioxide 36 H BUN 10 Creatinine 0.50 L Estimated GFR > 60.0 BUN/Creatinine Ratio 20.0 Glucose 296 H Calcium 9.6 Magnesium Total Bilirubin 0.8 AST 22 ALT 25 Alkaline Phosphatase 156 H Total Protein 8.3 H Albumin 4.4 Globulin 3.9 Albumin/Globulin Ratio 1.1 Procalcitonin Serum , Qual Negative COVID-19 PCR 02/21/20 02/21/20 02/21/20 15:20 15:20 18:00 WBC RBC Hgb Hct MCV MCH MCHC RDW Plt Count Neut % (Auto) Lymph % (Auto) [place] % (Auto) Eos % (Auto) Baso % (Auto) Neut # (Auto) Lymph # (Auto) [place] # (Auto) Eos # (Auto) Baso # (Auto) Sodium Potassium Chloride Carbon Dioxide BUN Creatinine Estimated GFR BUN/Creatinine Ratio Glucose Calcium Magnesium 1.3 L Total Bilirubin AST ALT Alkaline Phosphatase Total Protein Albumin Globulin Albumin/Globulin Ratio Procalcitonin < 0.05 Serum , Qual COVID-19 PCR Negative Assessment & Plan Assessment & Plan narrative: This is a 49-year-old female with presents to the ER with worsening right facial swelling secondary to dental abscess on antibiotics for 3 days. 1. Right maxillary dental abscess with right facial cellulitis, present on admission, active -right maxillary abscess with right facial swelling and pain. -patient was seen at [place] ER on 02/19/2020 and started on clindamycin 450 mg every 8 hours, patient started taking medication on Thursday. -since then the patient has had worsening facial swelling and increasing pain. For abscess expanded and spontaneously drained today. -no culture was obtained in no purulent material able to be expressed to culture at time evaluation. -patient has a history of multiple MRSA lesions, ordered vancomycin 1,500 mg twice daily and ceftriaxone 2 g daily. -no evidence of systemic infection, she is afebrile with no nausea vomiting, she has had male compromise with cirrhosis, will obtain blood cultures. 2. Diabetes type 2, non-insulin dependent with hyperglycemia, present on admission active -patient states she has newly diagnosed, she had a hemoglobin A1c of 13 on 12/13/2019. -been started on metformin 1000 mg twice daily. Metformin will be held, will obtain fingerstick blood sugars a.c. and HS, coverage with correctional insulin low-dose range. -requested dietitian consult. 3. Liver cirrhosis, chronic, stable -patient endorses a past history of alcohol abuse. -she has undergone banding x6 for esophageal varices, she had a paracentesis and 2016. -her total bilirubin 0.8, AST is 22, ALT is 25 and alkaline phosphatase 156. Albumin is 4.4. Platelets are 300. -will continue home regimen of Lasix 40 mg daily and spironolactone 50 mg daily. 4. History cardiac arrhythmia, in sinus rhythm, chronic, stable. -patient reports having had palpitations the past but none for few years. She a lso reports 2 syncopal episodes while on the commode last being 4 months ago. -regular rate and rhythm without complaints of chest pain or shortness of breath now. -will continue nadolol 40 mg daily. 5. COPD, chronic, not in exacerbation, stable -patient is a past social smoker but exposed to significant secondhand smoke. -she denies shortness of breath or exertional dyspnea and half no wheezing. -pulse oximetry is 96% on room air 6. Acquired hypothyroidism, chronic, stable. -the patient underwent a total thyroidectomy for papillary adenocarcinoma of thyroid -recent testing a thyroid level on 12/13/2019 finds TSH elevated at 9.87 with free T4 normal range of 1.91. -continue home regimen of levothyroxine 200 mcg daily. 7. Depression and anxiety, chronic, stable. -will continue patient's home medications of Saphris 10 mg sublingual (may take on medication). Will continue sertraline 50 mg daily and hydroxyzine 50 mg 3 times daily as needed. VTE prophylaxis: Enoxaparin IV fluid: Normal saline 50 cc per hour Diet: Constant carbohydrate, cirrhotic diet. Code status: Full code, patient designates her sister or her boyfriend to be surrogate decision makers. The patient is admitted to the hospital due to the severity of her symptoms and and failure of outpatient treatment requiring IV antibiotics. Patient is admitted as observation with expected length of stay less than 2 midnights. COVID-19 COVID-19 status: Negative Result date/Date tested (Pos, Neg/Pending): 02/21/20 Scores GCS Magdi coma scale eye opening: Spontaneous [place] coma scale verbal response: Orientated Goodyear coma scale motor response: Obey commands Magdi coma scale total score: 15 Quality VTE Deep Vein Thrombosis/Pulmonary Embolism Present on Admission: No
[2020-02-21] MEDS: CEFTRIAXONE 2 GM/50 ML FROZ.PIGGY IV (22:11)
[2020-02-21] MEDS: INSULIN ASPART 100 UNIT/ML INSULN PEN SUBCUT (22:17)
[2020-02-21] MEDS: VANCOMYCIN 2,000 MG/400 ML PIGGYBACK 200 MG IV (23:14)
[2020-02-21 23:40] VITALS: BP 110/71; PULSE 61; RESP 18; TEMP 36.5; O2SAT 92
[2020-02-22] VITALS (13 sets, daily range): BP systolic 94–113; BP diastolic 59–75; PULSE 53–58; RESP 15–18; TEMP 35.6–36.6; O2SAT 91–98
[2020-02-22] MEDS: MELATONIN 3 MG TABLET 6 MG PO ×2 (00:10→20:55)
[2020-02-22] MEDS: MAGNESIUM SULFATE 2 GM/50 ML PIGGYBACK IV (02:18)
[2020-02-22 05:36] LABS: Add Manual Diff / Slide Review NO; Basophils Absolute Auto 100 /uL (0-100); Basophils Percent Auto 1.3 % (0-2); Eosinophils Absolute Auto 200 /uL (0-450); Eosinophils Percent Auto 1.5 % (2-4); Hematocrit 35.8 % (36-46); Lymphocytes Absolute Auto 3300 /uL (1100-4500); Lymphocytes Percent Auto 30.4 % (25-40); Mean Corpuscular HGB Conc 33.5 % (30-36); Mean Corpuscular Hemoglobin 27.7 PG (26-34); Mean Corpuscular Volume 82.5 fL (80-100); Monocytes Absolute Auto 500 /uL (0-900); Neutrophils Absolute Auto 6800 /uL (1500-7000); Neutrophils Percent Auto 61.8 % (50-75); Platelet Count 237 X10^3/uL (150-400); Red Blood Cell Count 4.34 X10^6/uL (4.0-5.2); Red Cell Distribution Width 15.4 % (11.6-14.8)
[2020-02-22 06:12] LABS: BUN Creatinine Ratio 18.8 (6-22); Blood Urea Nitrogen 9 mg/dL (7-17); Calcium 8.6 mg/dL (8.4-10.2); Carbon Dioxide 35 mmol/L (22-32); Chloride 94 mmol/L (98-107); Estimated Glomerular Filt Rate > 60.0 mL/min (>60); Glucose 187 mg/dL (70-100); HEMOLYSIS 16 (0-50); Potassium 3.5 mmol/L (3.4-5.1); Sodium 134 mmol/L (137-145)
[2020-02-22 06:33] LABS: Procalcitonin < 0.05 ng/mL (<0.5)
[2020-02-22] MEDS: OXYCODONE IR 10 MG TABLET PO ×3 (06:37→20:54)
[2020-02-22] MEDS: LEVOTHYROXINE 100 MCG TABLET 200 MCG PO (06:38)
[2020-02-22] MEDS: PANTOPRAZOLE 20 MG TABLET PO (06:38)
[2020-02-22] MEDS: ASPIRIN EC 81 MG TABLET PO (08:22)
[2020-02-22] MEDS: FUROSEMIDE 40 MG TABLET PO (08:22)
[2020-02-22] MEDS: ENOXAPARIN 40 MG/0.4 ML SYRINGE SUBCUT ×2 (08:22→20:59)
[2020-02-22] MEDS: METFORMIN HCL 500 MG TABLET 1000 MG PO ×2 (08:22→19:12)
[2020-02-22] MEDS: INSULIN ASPART 100 UNIT/ML INSULN PEN SUBCUT ×4 (08:24→20:57)
[2020-02-22] MEDS: lisinopriL 5 MG TABLET PO (08:24)
[2020-02-22] MEDS: SPIRONOLACTONE 25 MG TABLET 50 MG PO (08:24)
[2020-02-22] MEDS: SERTRALINE 50 MG TABLET PO (08:24)
[2020-02-22] MEDS: VANCOMYCIN 250 MG IV ×2 (08:34→16:37)
--- NOTE | 2020-02-22 11:48 | DIET.PN ---
Addendum entered by Citlaly Brown 02/22/20 17:17: Returned to pt room to continue DM education. Using handouts discussed foods containing carbohydrates, reasonable carb amounts for her body (30-45g per meal, 15-30g per snack) and how to combine foods into meals. Pt lives w boyfriend and her mom. The mom won't be supportive of food changes in the home but her boyfriend is preDM so will be up for changes. Scheduled pt for initial Diabetes Self Management Education appointment at on Mar 08. Original Note: Dietary Progress Note Assessment: 49y F admitted for tooth abscess c PMHx of etoh cirrhosis (quit drinking 2mo ago), hypothyroid, COPD, depression/anxiety referred to nutrition for uncontrolled DM2. Pt dx c DM2 by Dr. Leary 2mo ago at which point she started 1,000mg Metformin bid. At the time pt was not ready to start DSME but expresses she is now ready to get her DM2 under better control. Current A1c 13 c admit BG 299. Pt expresses not knowing anything about diabetes other than people can lose limbs and people can go into coma. HT: 157.4cm WT: 99.5kg UBW: 106kg 1y ago per records BMI: 40.1 Labs: A1c 13 H, admit BG 299 H, WBC 12.1 H MNA: 13 Jackson: 18 Nutrition Diagnosis: altered nutrition related laboratory values (BG, A1c) r/t endocrine dysfunction and nutrition related knowledge deficit aeb admit bg 299 c tooth abscess, A1c 13, pt dx c DM2 two months ago on metformin and wasn't ready for DSME, pt reports not knowing what she can do to manage her DM2. Interventions: 1. Educated pt on etiology of DM2, insulin resistance, blood labs (BG and A1c) what they mean and factors that affect their values. 2. Acclimated pt to patient menu and instructed pt in combining food choices to build meals within her carb limits for meals and snacks (30-45g CHO meals, 15-30g snacks). 3. Discussed DSME c pt to assess readiness, pt reports being ready to attend, will ask PCP [facility] for referral and set up OP appt before d/c. Diet Order: CCD3 EER: 30-45g CHO c meals 15-30g c snacks Monitoring/Evaluations: RDs will be up today to continue DM education on carb content of foods c handouts and to schedule OP DSME intake.
--- NOTE | 2020-02-22 12:29 | P.PN_ITS ---
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 The patient is resting in bed comfortably. She reports her right-sided facial swelling has improved. She continues to mild pain but only to palpation. She has no other complaints and denies headache, ear pain, cough, shortness of breath, chest pain, abdominal pain, nausea, vomiting, fever, chills, dysuria, diarrhea or constipation. She is voiding without difficulty. She is up ambulating wi thout assistance. Exam Vital Signs (past 8 hours): - 02/22/20 05:00 02/22/20 07:50 02/22/20 08:17 Temperature 97.2 F L Pulse Rate 54 L Respiratory Rate 17 Blood Pressure 113/75 103/73 Pulse Oximetry 93 91 02/22/20 08:24 02/22/20 08:45 02/22/20 11:48 Temperature 97.7 F 96.2 F L Pulse Rate 55 L 58 L Respiratory Rate 15 15 Blood Pressure 103/73 103/73 94/59 L Pulse Oximetry 91 91 Oxygen Delivery Method Room Air Oxygen Flow Rate 0 Narrative Exam Narrative: General: Middle aged female lying in bed comfortably and in no acute distress, well-developed, well-nourished, appropriately interactive. HEENT: Normocephalic, atraumatic. External ears without defect. Pupils equal, round, and reactive to light. Anicteric sclerae, moist conjunctivae, and no lid lag. Numerous dental caries with edema and erythema at gum line adjacent to upper right molar which is broken off with small pieces of residual tooth present. Subtle mild right-sided facial swelling without erythema or evidence of cellulitis. Neck: Supple with full range of motion. No jugular venous distension. No bruits. No lymphadenopathy or thyromegaly. Cardiovascular: Regular rate and rhythm without murmurs, rubs, or gallops appreciated. Pulmonary: Clear to auscultation bilaterally without crackles, wheezes, or rhonchi. Normal respiratory effort with no use of accessory muscles. Abdomen: Soft, obese, bowel tones present, nontender, nondistended. No hepatosplenomegaly or masses appreciated. Extremities: No clubbing, cyanosis, or edema. Skin: Normal temperature, turgor, and texture; no rash, ulcers, or subcutaneous nodules appreciated. Neurological: Cranial nerves grossly intact. Psychiatric: Normal mood and affect. Alert and oriented to person, place, and time. Objective Labs Result Diagrams: 02/23/20 08:24 02/22/20 05:00 Labs: Laboratory Results - last 24 hr 02/21/20 02/21/20 02/21/20 15:20 15:20 15:20 WBC 12.1 H RBC 4.87 Hgb 13.2 Hct 40.0 MCV 82.2 MCH 27.0 MCHC 32.9 RDW 15.8 H Plt Count 304 Neut % (Auto) 72.8 Lymph % (Auto) 20.4 L [place] % (Auto) 5.0 Eos % (Auto) 0.8 L Baso % (Auto) 1.0 Neut # (Auto) 8800 H Lymph # (Auto) 2500 [place] # (Auto) 600 Eos # (Auto) 100 Baso # (Auto) 100 Sodium 134 L Potassium 3.8 Chloride 92 L Carbon Dioxide 36 H BUN 10 Creatinine 0.50 L Estimated GFR > 60.0 BUN/Creatinine Ratio 20.0 Glucose 296 H Calcium 9.6 Magnesium Total Bilirubin 0.8 AST 22 ALT 25 Alkaline Phosphatase 156 H Total Protein 8.3 H Albumin 4.4 Globulin 3.9 Albumin/Globulin Ratio 1.1 Procalcitonin Serum , Qual Negative COVID-19 PCR 02/21/20 02/21/20 02/21/20 15:20 15:20 18:00 WBC RBC Hgb Hct MCV MCH MCHC RDW Plt Count Neut % (Auto) Lymph % (Auto) [place] % (Auto) Eos % (Auto) Baso % (Auto) Neut # (Auto) Lymph # (Auto) [place] # (Auto) Eos # (Auto) Baso # (Auto) Sodium Potassium Chloride Carbon Dioxide BUN Creatinine Estimated GFR BUN/Creatinine Ratio Glucose Calcium Magnesium 1.3 L Total Bilirubin AST ALT Alkaline Phosphatase Total Protein Albumin Globulin Albumin/Globulin Ratio Procalcitonin < 0.05 Serum , Qual COVID-19 PCR Negative 02/22/20 02/22/2020 05:00 05:00 05:00 WBC 11.0 RBC 4.34 Hgb 12.0 Hct 35.8 L MCV 82.5 MCH 27.7 MCHC 33.5 RDW 15.4 H Plt Count 237 Neut % (Auto) 61.8 Lymph % (Auto) 30.4 [place] % (Auto) 5.0 Eos % (Auto) 1.5 L Baso % (Auto) 1.3 Neut # (Auto) 6800 Lymph # (Auto) 3300 [place] # (Auto) 500 Eos # (Auto) 200 Baso # (Auto) 100 Sodium 134 L Potassium 3.5 Chloride 94 L Carbon Dioxide 35 H BUN 9 Creatinine 0.48 L Estimated GFR > 60.0 BUN/Creatinine Ratio 18.8 Glucose 187 H D Calcium 8.6 Magnesium Total Bilirubin AST ALT Alkaline Phosphatase Total Protein Albumin Globulin Albumin/Globulin Ratio Procalcitonin < 0.05 Serum , Qual COVID-19 PCR Assessment & Plan Assessment & Plan narrative: Yin Burch is a [id number] with a past medical history significant for 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 1. Acute right maxillary dental abscess, present on admission. Improving. -Patient presented with chronic gumline dental abscess secondary to dental sierra that usually evacuates in to oropharynx but evacutated in surrounding soft tissue and formed right maxillary abscess with right facial swelling and pain without evidence of cellulitis. -Patient was seen at [facility] on 02/19/2020 and started on clindamycin 450 mg every 8 hours and started medication that night and only received 1.5-2 days of oral antibiotic treatment. -Initial WBC 12.1 and procalcitonin negative < 0.05. WBC normalized at 11.0. Continue to monitor WBC daily. -Wound culture unobtainable as there was no oropharyngeal exudate. Blood cultures x2 have no growth to date. -Continue vancomycin with dosing per pharmacist and ceftriaxone 2 g IV daily. Of note, patient has a history of multiple MRSA lesions. 2. Diabetes mellitus type 2, non-insulin using, present on admission. Stable. -Hemoglobin A1c 10.2% which has improved from 13% in 12/2019. Patient recently diagnosed on 12/13/2019. -Held home metformin. -Continue [facility] blood glucose checks and coverage with low-dose [facility] insulin. -Consulted dietitian and we appreciate her time and recommendations. Patient has been arranged for DSME. 3. Liver cirrhosis, chronic, present on admission. Stable. -Previous history of alcohol abuse. Status post banding x6 for esophageal varices and paracentesis for abdominal ascites in 2016. -Initial LFT's: Total bilirubin 0.8, AST 22, ALT 25 and alkaline phosphatase 156. Albumin is 4.4. Platelets are 300. Liver synthetic function intact. -Continue home furosemide 40 mg daily, spironolactone 50 mg daily and nadolol 40 mg daily. 4. History cardiac arrhythmia, in sinus rhythm, chronic, present on admission. Stable. -patient reports having had palpitations the past but none for few years. She also reports 2 syncopal episodes while on the commode last being 4 months ago. -regular rate and rhythm without complaints of chest pain or shortness of breath now. -Continue home nadolol 40 mg daily as above. 5. COPD, chronic, present on admission. Stable. -Does not represent acute COPD exacerbation. She denies shortness of breath or wheezing. -Patient previously was a social smoker but exposed to significant secondhand smoke. -Not on home inhalers. 6. Hypothyroidism, chronic, present on admission. Stable. -Status post total thyroidectomy for papillary adenocarcinoma of thyroid. -TSH elevated at 9.87 with free T4 normal range of 1.91 on 12/2019. -Continue home levothyroxine 200 mcg daily. 7. Depression and anxiety, chronic, present on admission. Stable. Continue home sertraline 50 mg daily, hydroxyzine 50 mg 3 times daily as needed for anxiety and Saphris 10 mg sublingual (may take on medication). Code status: Full code, patient designates her sister or her boyfriend to be surrogate decision maker VTE prophylaxis: Enoxaparin, SCDs Disposition: Patient likely to discharge home tomorrow on oral antibiotics if dental abscess continues to improve. Quality VTE Deep Vein Thrombosis/Pulmonary Embolism Present on Admission: No
[2020-02-22 12:33] LABS: Magnesium 2.3 mg/dL (1.6-2.3)
[2020-02-22 12:35] LABS: Hemoglobin A1C% w Est Avg Glu 10.2 % (4.0-6.0)
--- NOTE | 2020-02-22 15:36 | CM.DANOTE ---
DCP/Assessment: Reviewed chart. Patient is a 49yr old female admitted to [facility] with tooth abscess. PCP is Dr. Leary. Primary payor is 1)[employer] 2)Medicaid. Met with patient explained CM/SW role. Patient alert and oriented resting in bed at time of visit. Patient reports that she starting have tooth ache last week. Patient brought into the ED where it was determined that she has abscess. Patient reports that she currently does not have dentist. Spoke with provider/Dr. Ayon and she reports that patient will need dentist appointment after discharge. 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 Placed call to [facility] dental and patient has appointment scheduled for February 27 at 12:40pm. Address is: [address] [place] [address]. [address] ph# [phone]. Will provide above information to patient today. Dr. Ayon notified of the above. Anticipate d/c tomorrow. P: Home when stable. BEATRICE Hale Discharge Planning/Care Management CM Discharge Assessment Start: 02/22/20 15:25 Freq: Status: Active Protocol: Document 02/22/20 15:25 KJS (Rec: 02/22/20 15:36 [id number]) Discharge Planning Assessment Assigned Production Counter BEATRICE Hale Contact Information Vitor Lay (significant other) ph# [phone] Advance Directives? No History Provided By Patient,Medical Record Prior Living Arrangements House Household Members significant other Type of transporation used prior to Relies on Others admit Independent with ADL's Yes Is patient alert and oriented? Yes Caregiver for Another No Transportation Arrangement Family or significant other can provide transport home. Additional Comment Patient needs dental referral/ appointment. Whiteboard Updated in Patient Room with Yes name and ext. # of Production Counter Review Status In Process Next Review Type Continued Stay Review
--- NOTE | 2020-02-22 15:56 | PC.NURSE ---
Addendum entered by Zabrina Urias R.N. 02/22/20 22:48: States no relief from vistaril. States cannot take tylenol. Oxycodone as per order and emar. Reports able to sleep when final rounds made this evening shift. Yogurt provided as pt on multiple antibiotics. Addendum entered by Zabrina Urias R.N. 02/22/20 16:49: States prefers not to wear scd's. Provided pt with rationale for use. Encouraged pt to frequently ankle wave and calf pump and pt provides return demonstration. States desires metformin @ 1900. Original Note: Pt in bed with head of bed elevated. Reports dental pain okay at this assessment following pain meds at end of dayshift. Pt denies nausea. Offered prune juice for pt statement no BM since Thursday and pt declines. Appropriate mentation and conversation. Pt reports edema to right face improved since admission. Slight edema noted. BL facial cheeks are both pink in color. Pt reports h/o drop foot to right foot with diminished sensation, but denies use of assistive devices and denies falls. Encouraged to call for needs.
[2020-02-22] MEDS: hydrOXYzine pamoate 25 MG CAPSULE 50 MG PO (19:19)
[2020-02-22] MEDS: DOCUSATE 100 MG CAPSULE PO (20:55)
[2020-02-22] MEDS: SODIUM CHLORIDE 0.9% FLUSH 10 ML IV (20:59)
[2020-02-22] MEDS: CEFTRIAXONE 2 GM/50 ML FROZ.PIGGY IV (21:05)
[2020-02-23] VITALS: O2SAT 93
[2020-02-23] MEDS: VANCOMYCIN 250 MG IV (00:33)
[2020-02-23] MEDS: OXYCODONE IR 5 MG TABLET PO ×2 (01:02→09:07)
[2020-02-23 04:00] VITALS: O2SAT 93
[2020-02-23 05:38] VITALS: BP 122/60; PULSE 62; RESP 16; TEMP 36; O2SAT 93
[2020-02-23] MEDS: LEVOTHYROXINE 100 MCG TABLET 200 MCG PO (07:39)
[2020-02-23] MEDS: PANTOPRAZOLE 20 MG TABLET PO (07:40)
[2020-02-23 08:21] VITALS: BP 109/71; PULSE 56; RESP 16; TEMP 35.9; O2SAT 95
[2020-02-23] MEDS: INSULIN ASPART 100 UNIT/ML INSULN PEN SUBCUT (08:48)
[2020-02-23] MEDS: SPIRONOLACTONE 25 MG TABLET 50 MG PO (08:56)
[2020-02-23] MEDS: FUROSEMIDE 40 MG TABLET PO (08:56)
[2020-02-23] MEDS: ASPIRIN EC 81 MG TABLET PO (08:56)
[2020-02-23] MEDS: ENOXAPARIN 40 MG/0.4 ML SYRINGE SUBCUT (08:56)
[2020-02-23] MEDS: SERTRALINE 50 MG TABLET PO (08:57)
[2020-02-23] MEDS: METFORMIN HCL 500 MG TABLET 1000 MG PO (08:57)
[2020-02-23] MEDS: lisinopriL 5 MG TABLET PO (08:57)
[2020-02-23 09:04] LABS: Add Manual Diff / Slide Review NO; Basophils Absolute Auto 100 /uL (0-100); Eosinophils Absolute Auto 200 /uL (0-450); Eosinophils Percent Auto 2.5 % (2-4); Hematocrit 36.1 % (36-46); Lymphocytes Absolute Auto 2500 /uL (1100-4500); Mean Corpuscular HGB Conc 33.2 % (30-36); Mean Corpuscular Hemoglobin 27.4 PG (26-34); Mean Corpuscular Volume 82.6 fL (80-100); Monocytes Absolute Auto 300 /uL (0-900); Monocytes Percent Auto 4.2 % (3-14); Neutrophils Absolute Auto 5100 /uL (1500-7000); Neutrophils Percent Auto 62.3 % (50-75); Platelet Count 232 X10^3/uL (150-400); Red Blood Cell Count 4.37 X10^6/uL (4.0-5.2); Red Cell Distribution Width 15.4 % (11.6-14.8); White Blood Cell Count 8.2 X10^3/uL (4.5-11.0)
[2020-02-23] MEDS: SODIUM CHLORIDE 0.9% FLUSH 10 ML IV (09:08)
--- NOTE | 2020-02-23 09:37 | P.DS_ITS ---
History of Present Illness History of Present Illness Date Patient Seen: 02/21/20 Chief complaint: ABSCESS TOOTH Narrative: Written by Raj VILLA: Ms. Yin Burch is a 49 old female with a past medical history significant for diabetes type 2, liver cirrhosis with esophageal varices (S/P banding x6, paracentesis in 2016), seizures DrRomana carrillo related to alcohol, diabetes type 2, thyroid cancer (s/p total thyroidectomy, 1997) with acquired hypothyroidism, depression anxiety who presents the ER for worsening facial. The patient has been seen at [facility] following a comes cyst that popped with progressive swelling on 02/19/2020. She is diagnosed with dental abscess and started on clindamycin 450 mg every 8 hours. Since then she since has had worsening right facial pain and swelling. She denies systemic symptoms of fevers or chills nausea vomiting headaches or dizziness. Upon arrival here she describes her pain as 10 out 10 on examination the abscess is began draining. The patient does have a history of cirrhosis and quit drinking 2 months ago. The patient denies complaints chest pain as remote history of palpitations but none for years. She endorses 2 syncopal episodes last being 4 months ago while on the commode waking up on the floor for which she was not evaluate. She reports a history of ?lung problems? and has been a social smoker in the past but had extensive secondhand smoke exposures a child has had no complaints of shortness of breath cough or wheezing. She denies complaints of abdominal pain, nausea vomiting, diarrhea or constipation. She reports no urinary changes. She does have a history of MRSA and reports having had multiple infections around her body. One of the ER she is afebrile with a temperature 96.8?, heart rate of 62, blood pressure 131/76, respiratory rate of 14 saturating 96% on room air. She underwe nt CT which finds a 1.8 cm rim enhancing fluid collection involving soft tissue adjacent to the right maxillary molars and maxillary sinus with poor dentition. On laboratory analysis she has an elevated white count at 12.1, hemoglobin of 13.2, hematocrit of 40 with platelets of 304. Chemistries are notable for sodium 134 and magnesium 1.3. BUN and creatinine are 10 and 0.5 respectively and she h as an elevated nonfasting glucose of 296. Total bilirubin 0.8, AST 22, ALT 25 and alkaline phosphatase 156. Her albumin is 0.4. Procalcitonin is less than 0.05. Serum is negative and covered screening is negative. The patient is admitted to the medicine service for right facial cellulitis. PCP: Dr. Leary Discharge Providers Provider Date of admission: 02/22/20 12:26 Discharge Date: 02/23/20 Primary care physician: Miguel Ángel Leary MD Consults: 02/21/20 19:45 Consult to Dietitian, Adult Routine Comment: Reason For Exam: Diabetic, cirrhosis Consult to Discharge Planning Routine Comment: Discharge provider: Marissa Ayon DO Summary Hospital Course Discharge Diagnosis: 1. Acute right maxillary dental abscess, present on admission. Resolving. 2. Diabetes mellitus type 2, non-insulin using, present on admission. Stable. 3. Liver cirrhosis, chronic, present on admission. Stable. 4. History cardiac arrhythmia, in sinus rhythm, chronic, present on admission. Stable. 5. COPD, chronic, present on admission. Stable. 6. Hypothyroidism, chronic, present on admission. Stable. 7. Depression and anxiety, chronic, present on admission. Stable. 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 1. Acute right maxillary dental abscess, present on admission. Resolving. -Patient presented with chronic gumline dental abscess secondary to dental sierra that usually evacuates in to oropharynx but evacutated in surrounding soft tissue and formed right maxillary abscess with right facial swelling and pain without evidence of cellulitis. -Patient was seen at [facility] on 02/19/2020 and started on clindamycin 450 mg every 8 hours and started medication that night and only received 1.5-2 days of oral antibiotic treatment. -Initial WBC 12.1 and procalcitonin negative < 0.05. WBC normalized now 8.2. Continued to monitor WBC daily. -Wound culture unobtainable as there was no oropharyngeal exudate. Blood cultures x2 have no growth to date. -Continued vancomycin with dosing per pharmacist and ceftriaxone 2 g IV daily. Of note, patient has a history of multiple MRSA lesions. Patient was discharged on clindamycin 450 mg every 8 hours and levofloxacin 750 mg daily for 12 additional days to complete 14 days of antibiotic treatment. 2. Diabetes mellitus type 2, non-insulin using, present on admission. Stable. -Hemoglobin A1c 10.2% which has improved from 13% in 12/2019. Patient recently diagnosed on 12/13/2019. -Held home metformin which was restarted at time of discharge. -Continued [facility] blood glucose checks and coverage with low-dose correctional scale insulin. -Consulted dietitian and we appreciate her time and recommendations. Patient has been arranged for DSME. 3. Liver cirrhosis, chronic, present on admission. Stable. -Previous history of alcohol abuse. Status post banding x6 for esophageal varice s and paracentesis for abdominal ascites in 2016. -Initial LFT's: Total bilirubin 0.8, AST 22, ALT 25 and alkaline phosphatase 156. Albumin is 4.4. Platelets are 300. Liver synthetic function intact. -Continued home furosemide 40 mg daily, spironolactone 50 mg daily and nadolol 40 mg daily. 4. History cardiac arrhythmia, in sinus rhythm, chronic, present on admission. Stable. -Patient reports having had palpitations in the past but has not had any for several years. She also reports 2 syncopal episodes while on the commode with her last episode 4 months ago. -Continued home nadolol 40 mg daily as above. 5. COPD, chronic, present on admission. Stable. -Does not represent acute COPD exacerbation. She denies shortness of breath or wheezing. -Patient previously was a social smoker but exposed to significant secondhand smoke. -Not on home inhalers. 6. Hypothyroidism, chronic, present on admission. Stable. -Status post total thyroidectomy for papillary adenocarcinoma of thyroid. -TSH elevated at 9.87 with free T4 normal range of 1.91 on 12/2019. -Continued home levothyroxine 200 mcg daily. 7. Depression and anxiety, chronic, present on admission. Stable. -Continued home sertraline 50 mg daily, hydroxyzine 50 mg 3 times daily as needed for anxiety and Saphris 10 mg sublingual (may take on medication). Exam Vital Signs (past 8 hours): - 02/23/20 04:00 02/23/20 05:38 02/23/20 08:21 Temperature 96.8 F L 96.7 F L Pulse Rate 62 56 L Respiratory Rate 16 16 Blood Pressure 122/60 109/71 Pulse Oximetry 93 93 95 Oxygen Delivery Method Room Air Oxygen Flow Rate 0 Narrative Exam Narrative: General: Middle aged female lying in bed comfortably and in no acute distress, well-developed, well-nourished, appropriately interactive. HEENT: Normocephalic, atraumatic. External ears without defect. Pupils equal, round, and reactive to light. Anicteric sclerae, moist conjunctivae, and no lid lag. Numerous dental caries with edema and erythema at gum line adjacent to upper right molar which is broken off with small pieces of residual tooth present. Subtle mild right-sided facial swelling/fullness improved without erythema or evidence of cellulitis. Neck: Supple with full range of motion. No jugular venous distension. No lymphadenopathy or thyromegaly. Cardiovascular: Regular rate and rhythm without murmurs, rubs, or gallops appreciated. Pulmonary: Clear to auscultation bilaterally without crackles, wheezes, or rhonchi. Normal respiratory effort with no use of accessory muscles. Abdomen: Soft, obese, bowel tones present, nontender, nondistended. No masses appreciated. Extremities: No clubbing, cyanosis, or edema. Skin: Normal temperature, turgor, and texture; no rash, ulcers, or subcutaneous nodules appreciated. Neurological: Cranial nerves grossly intact. Psychiatric: Normal mood and affect. Alert and oriented to person, place, and time. Objective Labs Result Diagrams: 02/23/20 08:24 02/22/20 05:00 Labs: Laboratory Results - last 24 hr 02/22/20 02/22/20 02/23/20 05:00 05:00 08:24 WBC 8.2 RBC 4.37 Hgb 12.0 Hct 36.1 MCV 82.6 MCH 27.4 MCHC 33.2 RDW 15.4 H Plt Count 232 Neut % (Auto) 62.3 Lymph % (Auto) 30.0 [place] % (Auto) 4.2 Eos % (Auto) 2.5 Baso % (Auto) 1.0 Neut # (Auto) 5100 Lymph # (Auto) 2500 [place] # (Auto) 300 Eos # (Auto) 200 Baso # (Auto) 100 Hemoglobin A1c 10.2 H Magnesium 2.3 Discharge Plan Discharge Plan Patient Disposition: Home Provider Discharge Comment: You are being discharged home. You have a dental infection and need several teeth if not all of your teeth extracted. You have been prescribed levofloxacin 750 mg daily and clindamycin 450 mg every 8 hours for 12 days to complete antibiotic treatment. You have diabetes mellitus type 2. Your hemoglobin A1c is down from 13.0% in December to 10.2% now. Your hemoglobin A1C is 7.0% or lower. Continue metformin 1000 mg twice daily. You may need to be started on insulin in the future if your blood glucose levels do not continue to improve and it will be at the discretion of your primary care physician Dr. Leary. Please keep track of your blood glucose and keep a log of your measurements to take to your doctor appointments. You should take a fasting blood glucose (nothing to eat or drink) and 3 measurements 2 hours after meals (breakfast, lunch, and dinner). A glucose meter kit has sent to your pharmacy. Please follow-up with your primary care physician, Dr. Leary, at your scheduled appointment on 03/01/2020 at 9:30 a.m. Please follow-up with [facility] 02/28/2020 at 12:40 p.m. Nursing Discharge Comment: Appointment scheduled for you: [facility] at [address] [place], [place] on February 27 at 12:40pm. phone number Discharge orders & Medications Prescriptions: New clindamycin HCl 150 mg Capsule 450 mg PO Q8HR 12 Days Qty: 108 RF: 0 levofloxacin 250 mg Tablet 750 mg PO DAILY Qty: 12 RF: 0 (DME) blood-glucose meter [Glucocard Expression] Kit See Rx Instructions .ROUTE .MEDSUPPLY Qty: 1 RF: 0 fluconazole 150 mg tablet 150 mg PO DAILY PRN (Reason: yeast infection) Qty: 1 RF: 0 Continued spironolactone 50 mg tablet 50 mg PO DAILY Qty: 90 RF: 3 nadolol 40 mg tablet 40 mg PO DAILY Qty: 90 RF: 3 furosemide 40 mg tablet 40 mg PO DAILY Qty: 90 RF: 1 aspirin [Adult Low Dose Aspirin] 81 mg tablet,delayed release (DR/EC) 81 mg PO DAILY RF: 0 hydroxyzine HCl 50 mg tablet 50 mg PO TID PRN (Reason: anxiety) Qty: 90 RF: 5 lisinopril 5 mg tablet 5 mg PO DAILY Qty: 90 RF: 0 levothyroxine 200 mcg tablet 200 mcg PO DAILY Qty: 90 RF: 3 metformin 1,000 mg tablet 1,000 mg PO BID Qty: 180 RF: 1 Complete Multivitamin Tablet 1 tab PO DAILY RF: 0 Saphris 5 mg tablet, sublingual 10 mg SL 220 RF: 0 omeprazole 20 mg capsule,delayed release(DR/EC) 20 mg PO DAILY RF: 0 sertraline 50 mg tablet 50 mg PO DAILY RF: 0 Discontinued clindamycin HCl 300 mg capsule 450 mg PO Q8H RF: 0 Follow up/Referrals: Miguel Ángel Leary MD [Primary Care Provider] - 03/01/20 9:30 am (appt:03/01 @ 9:[address] Leary please arrive 15 minutes prior to your scheduled appointment time) Diet/Activity/Treatments Diet: Carb-consistent/Diabetic, Low-fat, Low-sodium and Low-cholesterol Activity: Activity as tolerated Visit Report/Discharge Packet Instructions: Complications of Type 2 Diabetes, Diabetes, General (Alternative Therapy), Tooth Abscess, Type 2 Diabetes, DI for Dental Pain Visit Report Forms: Patient Portal/API, Stroke Signs & Symptoms Discharge Data Primary Care Provider: Miguel Ángel Leary Discharges patient from system. Discharge Date/Time: 02/23/20 12:06 Quality VTE Deep Vein Thrombosis/Pulmonary Embolism Present on Admission: No
[2020-02-23 09:44] LABS: Procalcitonin < 0.05 ng/mL (<0.5)
[2020-02-23] MEDS: FLUCONAZOLE 150 MG TABLET PO (09:46)
[2020-02-23] MEDS: CLINDAMYCIN 150 MG CAPSULE 450 MG PO (09:46)
[2020-02-23] MEDS: levoFLOXacin 250 MG TABLET 750 MG PO (09:46)
[2020-02-23 11:12] LABS: Vancomycin Trough 13.4 ug/mL (10-20)
--- NOTE | 2020-02-23 12:03 | PC.NURSE ---
Discharge instructions and home care handouts reviewed with patient. she states understanding and has no further questions or concerns at this time. IV removed intact. 2 follow up appointments scheduled and patient is aware. Prescriptions sent into [facility] and patient will vegetable picker on her way home. Patient instructed to follow up as scheduled and to call her primary care doctor with questions or concerns. Patient instructed to seek emergent care should symptoms worsen or return.
== END 2020-02-23 12:06 | disposition home or self-care (01) | DRG 114 ==
LOC: ED 16:52 → AC 17:04
PROVIDERS: Internal Medicine; Nurse Practitioner Adult Health; Admitting Provider Internal Medicine; Emergency Provider Emergency Medicine; PCP Student in an Organized Health Care Education/Training Program; Referring Provider Emergency Medicine; Visit Provider Internal Medicine
DX: K04.7 Periapical abscess without sinus (principal); L03.211 Cellulitis of face; E66.9 Obesity, unspecified; Z68.41 Body mass index [BMI] 40.0-44.9, adult; K70.30 Alcoholic cirrhosis of liver without ascites; E11.9 Type 2 diabetes mellitus without complications; E89.0 Postprocedural hypothyroidism; F32.9 Major depressive disorder, single episode, unspecified; F41.9 Anxiety disorder, unspecified; J44.9 Chronic obstructive pulmonary disease, unspecified; Z85.850 Personal history of malignant neoplasm of thyroid; Z86.14 Personal history of Methicillin resistant Staphylococcus aureus infection; Z79.84 Long term (current) use of oral hypoglycemic drugs; Z11.59 Encounter for screening for other viral diseases; Z77.22 Contact with and (suspected) exposure to environmental tobacco smoke (acute) (chronic)
CPT/HCPCS: 36415; 70487; 80048; 80053; 80202; 82962; 83036; 83735; 84145; 84703; 85025; 87040; 87635; 96361; 96365; 96366; 96375; 99284; G0378; J0696; J1170; J1650; J2405

== ENCOUNTER → 2020-03-08 13:55 | Outpatient (CLI) | payer OTHER, MEDICAID, SELFPAY ==
[2020-02-21 19:42] VITALS: BMI 40.1
--- NOTE | 2020-03-08 15:18 | DIET.PN ---
Diabetes Intake: Initial Assessment Assess: Ms. Burch is a 49 YOF referred for type 2 diabetes. She was recently diagnosed as the result of a hospitalization due to an abscessed tooth. At diagnosis her A1c was 13.0. She also reports hx of liver cirrhosis. She is not able to exercise due to chronic hip pain. She has found it difficult to make changes in dietary habits as she shares the cooking responsibilities with her mother and boyfriend who do not understand the consequences of consistent hyperglycemia. She is waiting to receive a glucometer to begin testing. Labs: Per pt report: A1c: 10.2 (13 at diagnosis) Meds: metformin 1000 mg BID Diet: per 24 hr recall: B: hard-boiled egg w/ ward; yogurt L: sandwich; scrambled egg w/ ward or toast D: lasagna; salmon, starch, veg Sn: everything (hot wings, candy, cookies) Wt: 221.4lb Ht: 62.5in BMI: 39.8 BP: 120/80 DX: Altered nutrition related laboratory values related to impaired glucose metabolism, lack of previous exposure to nutrition information as evidenced by pt report, diagnosis of diabetes, previous diet high in refined carbohydrates. Intervention: 1. Completed intake assessment. Discussed barriers to care. 2. Discussed pathophysiology of diabetes. Reviewed A1c and its correlation to blood glucose numbers. Discussed recommended BG ranges. 3. Discussed importance of self-monitoring, how often, and when to check. . 4. Reviewed hyper/hypoglycemia and treatment. 5. Reviewed safe disposal of equipment (strip/lancets/insulin needles). 6. Created SMART goals for pt self-care and success. 7. Discussed program curriculum outline and class needs based on individual goals. SMART Goals: 1. Patient would like to lose 10 lb (~5% body weight) in the next 3 months by learning portion control, carb counting, and label reading. Her overall goal weight is 140lbs. Monitor/Evaluate: Healthy eating class 1 scheduled for Apr 19
== END ==
PROVIDERS: PCP Student in an Organized Health Care Education/Training Program; Referring Provider Student in an Organized Health Care Education/Training Program; Visit Provider Student in an Organized Health Care Education/Training Program
DX: E11.9 Type 2 diabetes mellitus without complications (principal); Z79.84 Long term (current) use of oral hypoglycemic drugs; E66.9 Obesity, unspecified; Z68.39 Body mass index [BMI] 39.0-39.9, adult; Z71.3 Dietary counseling and surveillance; Z87.19 Personal history of other diseases of the digestive system
CPT/HCPCS: G0108

== ENCOUNTER → 2020-03-21 11:54 | Outpatient (CLI) | payer OTHER, MEDICAID, SELFPAY ==
[2020-02-21 19:42] VITALS: BMI 40.1
[2020-03-21 13:56] LABS: Hematocrit 41.2 % (36-46); Hemoglobin 13.8 g/dL (12.0-16.0); Mean Corpuscular HGB Conc 33.5 % (30-36); Mean Corpuscular Volume 83.5 fL (80-100); Platelet Count 285 X10^3/uL (150-400); Red Blood Cell Count 4.93 X10^6/uL (4.0-5.2); Red Cell Distribution Width 14.4 % (11.6-14.8); White Blood Cell Count 10.2 X10^3/uL (4.5-11.0)
[2020-03-21 14:52] LABS: Alanine Aminotransferase 38 IU/L (<35); Albumin 4.8 g/dL (3.5-5.0); Albumin Globulin Ratio 1.3 (1.0-2.8); Alkaline Phosphatase 122 U/L (38-126); Aspartate Aminotransferase 34 IU/L (14-36); BUN Creatinine Ratio 18.8 (6-22); Bilirubin Total 0.7 mg/dL (0.2-1.3); Blood Urea Nitrogen 9 mg/dL (7-17); C-Reactive Protein Quant 2.6 mg/dL (<1.0); Calcium 10.1 mg/dL (8.4-10.2); Carbon Dioxide 34 mmol/L (22-32); Chloride 93 mmol/L (98-107); Cholesterol 293 mg/dL (140-199); Estimated Glomerular Filt Rate > 60.0 mL/min (>60); Globulin 3.7 g/dL (1.7-4.1); Glucose 237 mg/dL (70-100); HDL Cholesterol 71 mg/dL (40-60); HEMOLYSIS < 15 (0-50); LDL Cholesterol Calculated 180 mg/dL (<100); Potassium 3.9 mmol/L (3.4-5.1); Sodium 136 mmol/L (137-145); Total Protein 8.5 g/dL (6.3-8.2); Triglycerides 210 mg/dL (35-150)
[2020-03-21 15:15] LABS: TSH w/ Reflex to FT4 6.74 uIU/mL (0.47-4.68)
[2020-03-21 15:43] LABS: Free T4, Direct Thyroxine 2.16 ng/dL (0.78-2.19)
[2020-03-21 16:59] LABS: Creatinine Urine Random 31.2 mg/dL
[2020-03-21 17:04] LABS: Microalbumi Creatinin Ratio Ur 25.6 ug/mg CR (<30); Microalbumin Urine Random 0.8 mg/dL (0-1.6)
== END ==
PROVIDERS: PCP Student in an Organized Health Care Education/Training Program; Referring Provider Student in an Organized Health Care Education/Training Program; Visit Provider Student in an Organized Health Care Education/Training Program
DX: E11.9 Type 2 diabetes mellitus without complications (principal); F10.10 Alcohol abuse, uncomplicated; K70.30 Alcoholic cirrhosis of liver without ascites; E11.69 Type 2 diabetes mellitus with other specified complication; E78.5 Hyperlipidemia, unspecified; C73 Malignant neoplasm of thyroid gland; Z98.890 Other specified postprocedural states
CPT/HCPCS: 36415; 80053; 80061; 82043; 82570; 83036; 84439; 84443; 85027; 86140

== ENCOUNTER → 2020-04-23 12:33 | Outpatient (CLI) | payer OTHER, MEDICAID, SELFPAY ==
--- NOTE | 2020-04-23 12:34 | DI.US.S_ITS ---
PROCEDURE: US PELVIC COMPLETE INDICATIONS: Pelvic pain TECHNIQUE: Real-time scanning was performed of the pelvic organs, with image documentation. Additional endovaginal scanning was necessary due to incomplete visualization of the adnexal and endometrial structures by transabdominal scanning. COMPARISON: None. FINDINGS: Transabdominal scanning: Limited scanning through the kidneys shows no hydronephrosis. No pathologic free abdominal or pelvic fluid. Endovaginal scanning: Uterus: Uterus is normal in size at 7.9 x 3.5 x 4.6 cm. The endometrium measures 6.7 mm in combined thickness. Ovaries: Right ovary measures 3.7 x 1.7 x 2.0 cm left ovary measures 2.7 x 1.6 x 2.0 cm. Bilateral ovarian cysts present measuring up to 1.6 cm on the right and 1.3 cm on the left. IMPRESSION: Bilateral simple ovarian cyst measuring up to 1.6 cm on the right and 1.3 cm on the left. Dictated by: Rene SANABRIA Interpreted: Yeny Rose MD on 04/23/2020 at 15:50 Approved by: Yeny Rose M.D. on 04/23/2020 at 17:11
== END ==
PROVIDERS: PCP Student in an Organized Health Care Education/Training Program; Referring Provider Student in an Organized Health Care Education/Training Program; Visit Provider Student in an Organized Health Care Education/Training Program
DX: R10.2 Pelvic and perineal pain (principal); N83.291 Other ovarian cyst, right side; N83.292 Other ovarian cyst, left side
CPT/HCPCS: 76830; 76856

== ENCOUNTER → 2020-06-05 12:13 | Outpatient (CLI) | payer OTHER, MEDICAID, SELFPAY ==
[2020-06-05 13:13] LABS: Hemoglobin A1C% w Est Avg Glu 10.6 % (4.0-6.0)
[2020-06-05 13:20] LABS: Alanine Aminotransferase 29 IU/L (<35); Albumin 4.6 g/dL (3.5-5.0); Albumin Globulin Ratio 1.4 (1.0-2.8); Alkaline Phosphatase 116 U/L (38-126); Aspartate Aminotransferase 28 IU/L (14-36); Bilirubin Total 0.4 mg/dL (0.2-1.3); Blood Urea Nitrogen 9 mg/dL (7-17); Calcium 9.5 mg/dL (8.4-10.2); Carbon Dioxide 34 mmol/L (22-32); Chloride 91 mmol/L (98-107); Cholesterol 222 mg/dL (140-199); Estimated Glomerular Filt Rate > 60.0 mL/min (>60); Globulin 3.3 g/dL (1.7-4.1); Glucose 297 mg/dL (70-100); HDL Cholesterol 65 mg/dL (40-60); HEMOLYSIS < 15 (0-50); LDL Cholesterol Calculated 110 mg/dL (<100); Potassium 3.8 mmol/L (3.4-5.1); Sodium 133 mmol/L (137-145); Total Protein 7.9 g/dL (6.3-8.2); Triglycerides 236 mg/dL (35-150)
[2020-06-05 13:38] LABS: Free T3, Triiodothyronine Free 3.77 pg/mL (2.77-5.27); Free T4, Direct Thyroxine 2.18 ng/dL (0.78-2.19)
[2020-06-05 13:52] LABS: Thyroid Stimulating Hormone 1.26 uIU/mL (0.47-4.68)
== END ==
PROVIDERS: PCP Student in an Organized Health Care Education/Training Program; Referring Provider Student in an Organized Health Care Education/Training Program; Visit Provider Student in an Organized Health Care Education/Training Program
DX: E11.69 Type 2 diabetes mellitus with other specified complication (principal); E78.5 Hyperlipidemia, unspecified; E89.0 Postprocedural hypothyroidism; F10.21 Alcohol dependence, in remission; I10 Essential (primary) hypertension
CPT/HCPCS: 36415; 80053; 80061; 83036; 84439; 84443; 84481

== ENCOUNTER → 2020-06-19 13:55 | Outpatient (CLI) | payer OTHER, MEDICAID, SELFPAY ==
--- NOTE | 2020-06-19 15:14 | DIET.PN ---
Diabetes: Healthy Eating 1 Intervention: ? Discussed pathophysiology of diabetes and impact of nutrition/diet on blood sugar control.? Discussed fed versus non-fed state.?? ? Reviewed importance of Balance, Variety, and Moderation. ? Discussed the effect of carbohydrates/protein/fat on blood sugar control.? ? Stressed importance of consistent carbohydrate intake at each meal and provided instructions for recommended servings/portions of carbohydrates/protein per meal. Provided educational material. ? Reviewed carbohydrate counting and measuring carbohydrate content via serving sizes and reading nutrition labels.? Provided handouts.?? ? Discussed the difference between simple versus complex carbohydrates and the effect of fiber on blood sugar control.? Discussed various methods to increase fiber content in diet. ? Discussed the plate method for creating more carbohydrate conscious balanced meals. ? Stressed importance of meal timing and not going >4-5 hours between meals. Encouraged adding protein to evening snack to support glucose control overnight. ? Discussed importance of making dietary habits part of lifestyle change.
== END ==
PROVIDERS: PCP Student in an Organized Health Care Education/Training Program; Referring Provider Student in an Organized Health Care Education/Training Program; Visit Provider Student in an Organized Health Care Education/Training Program
DX: E11.9 Type 2 diabetes mellitus without complications (principal); Z71.3 Dietary counseling and surveillance
CPT/HCPCS: G0109

== ENCOUNTER → 2020-06-22 15:14 | Outpatient (CLI) | payer OTHER, MEDICAID, SELFPAY ==
--- NOTE | 2020-06-22 15:15 | DI.MG.S_ITS ---
BILATERAL DIGITAL SCREENING MAMMOGRAM 3D/2D WITH CAD: 06/22/2020 CLINICAL: Routine screening. Comparison is made to exam dated: 10/15/2018 [facility]. The tissue of both breasts is heterogeneously dense. This may lower the sensitivity of mammography. Current study was also evaluated with a Computer Aided Detection (CAD) system. There are benign vascular calcifications in both breasts. No significant masses, calcifications, or other findings are seen in either breast. There has been no significant interval change. IMPRESSION: BENIGN There is no mammographic evidence of malignancy. A 1 year screening mammogram is recommended. This exam was interpreted at Station ID: [id number]. NOTE: For mammograms, a report in lay terms will be sent to the patient. Approximately 15% of breast malignancies will not be visualized mammographically. In the management of a palpable breast mass, a negative mammogram must not discourage biopsy of a clinically suspicious lesion. Electronically Signed By: Hira Pak M.D. at/osmani:06/22/2020 16:58:27 letter sent: Normal Exam ACR BI-RADS Category 2: Benign Finding(s) [id number]
== END ==
PROVIDERS: PCP Student in an Organized Health Care Education/Training Program; Referring Provider Student in an Organized Health Care Education/Training Program; Visit Provider Student in an Organized Health Care Education/Training Program
DX: Z12.31 Encounter for screening mammogram for malignant neoplasm of breast (principal)
CPT/HCPCS: 77063; 77067

== ENCOUNTER → 2020-08-15 15:32 | Outpatient (CLI) | payer OTHER, MEDICAID, SELFPAY ==
[2020-08-15] MEDS: COVID-19 VACC #1, MRNA(MOD) 100 MCG/0.5 ML VIAL IM (15:46)
== END ==
PROVIDERS: PCP Student in an Organized Health Care Education/Training Program; Visit Provider Internal Medicine
DX: Z23 Encounter for immunization (principal)
CPT/HCPCS: 0011A; 91301

== ENCOUNTER → 2020-09-12 15:16 | Outpatient (CLI) | payer OTHER, MEDICAID, SELFPAY ==
[2020-09-12] MEDS: COVID-19 VACC #2, MRNA(MOD) 100 MCG/0.5 ML VIAL IM (15:24)
== END ==
PROVIDERS: PCP Student in an Organized Health Care Education/Training Program; Visit Provider Internal Medicine
DX: Z23 Encounter for immunization (principal)
CPT/HCPCS: 0012A; 91301

== ENCOUNTER → 2020-09-17 11:36 | Outpatient (CLI) | payer OTHER, MEDICAID, SELFPAY ==
[2020-09-17 12:33] LABS: BUN Creatinine Ratio 12.5 (6-22); Blood Urea Nitrogen 6 mg/dL (7-17); Calcium 9.4 mg/dL (8.4-10.2); Carbon Dioxide 36 mmol/L (22-32); Chloride 88 mmol/L (98-107); Estimated Glomerular Filt Rate > 60.0 mL/min (>60); Glucose 187 mg/dL (70-100); HEMOLYSIS < 15 (0-50); Potassium 3.2 mmol/L (3.4-5.1); Sodium 135 mmol/L (137-145)
== END ==
PROVIDERS: PCP Student in an Organized Health Care Education/Training Program; Referring Provider Student in an Organized Health Care Education/Training Program; Visit Provider Student in an Organized Health Care Education/Training Program
DX: E11.9 Type 2 diabetes mellitus without complications (principal); I10 Essential (primary) hypertension
CPT/HCPCS: 36415; 80048; 83036

== ENCOUNTER 2020-10-13 04:39 | Inpatient (IN) | payer OTHER, MEDICAID, SELFPAY ==
[2020-10-13] VITALS (27 sets, daily range): BP systolic 81–105; BP diastolic 45–55; PULSE 51–116; RESP 13–26; TEMP 36–36.6; O2SAT 95–100; BMI 38.7
--- NOTE | 2020-10-13 04:44 | ED.NAVMDI ---
HPI - Nausea/Vomiting/Diarrhea General Chief complaint: Dizziness Stated complaint: dizzy, nausea, vomiting md made med change Time Seen by Provider: 10/13/20 04:43 Source: patient and family Mode of arrival: Ambulatory Limitations: no limitations History of Present Illness HPI Narrative: 42-year-old female nonsmoker with multiple medical problems presents with her and chief complaint of feeling a bit nauseated with poor appetite and having diarrhea for upwards of 2 weeks. She feels like her symptoms started soon after increasing her dose of glipizide. She had been on the medication for some time prior to increasing the dose. She states that her blood glucose has been rather stable. She denies any injury or headache. She does have some dizziness and states that that is increased when she walks. She denies any fever or chills nor any neck pain. She has no chest pain or shortness of breath. She denies any abdominal pain or dysuria, frequency or urgency MD complaint: nausea, vomiting and diarrhea Onset (ago): week(s) Description of Vomiting: food contents Description of Diarrhea: watery Associated Abdominal Pain: No Severity: mild Relieving factors: none Exacerbating factors: none Related Data Home Medications Medication Instructions Recorded Confirmed aspirin 81 mg tablet,delayed 81 mg PO DAILY 12/17/19 10/13/20 release sertraline 50 mg PO DAILY 02/21/20 10/13/20 asenapine maleate [Saphris] 10 mg SUBLINGUAL BEDTIME 10/13/20 10/13/20 Previous Rx's Medication Instructions Recorded hydroxyzine HCl 50 mg tablet 50 mg PO TID PRN #90 tab 02/07/20 levothyroxine 200 mcg tablet 200 mcg PO DAILY #90 tab 02/14/20 blood sugar diagnostic #400 each 03/07/20 blood-glucose meter #1 each 03/07/20 lancets #400 each 03/07/20 pravastatin 20 mg tablet 20 mg PO BEDTIME #90 tab 03/22/20 nadolol 40 mg tablet 40 mg PO DAILY #90 tab 05/15/20 omeprazole 20 mg capsule,delayed 20 mg PO DAILY #90 cap 05/29/20 release metformin 1,000 mg tablet 1,000 mg PO BID #180 tab 07/16/20 liothyronine 5 mcg tablet 10 mcg PO DAILY #180 tab 08/22/20 furosemide 40 mg tablet 40 mg PO DAILY #90 tab 09/28/20 Allergies Allergy/AdvReac Type Severity Reaction Status Date / Time Penicillins [PENICILLINS] Allergy Unknown Verified 10/13/20 04:56 Sulfa (Sulfonamide Allergy Unknown Verified 10/13/20 04:56 Antibiotics) [SULFA (SULFONAMIDE ANTIBIOTICS)] sulfamethoxazole Allergy Verified 10/13/20 04:56 [From Bactrim] trimethoprim [From Bactrim] Allergy Verified 10/13/20 04:56 Review of Systems Constitutional Constitutional: Denies chills, Reports fatigue, Denies fever(s), Denies frequent falls, Reports lethargy and Reports weakness Eyes Eyes: Denies change in vision, Denies eye discharge, Denies irritation and Denies loss of vision ENT Ears, Nose, Mouth, and Throat: Denies change in voice, Reports dizziness, Denies neck pain, Denies sore throat and Denies throat swelling Cardiovascular Cardiovascular: Denies chest pain, Denies irregular heart rhythm, Denies lightheadedness, Denies palpitations, Denies dyspnea, Denies dyspnea on exertion and Denies orthopnea Respiratory Respiratory: Denies cough, Denies dyspnea, Denies dyspnea on exertion and Denies wheezing Gastrointestinal Gastrointestinal: Denies abdominal pain, Denies change in bowel habits, Denies diarrhea, Reports nausea and Reports vomiting Musculoskeletal Musculoskeletal: Denies neck pain and Denies numbness Integumentary/Breasts Skin/Breast: Denies pruritus, Denies erythema, Denies rash and Denies wounds Neurologic Neurologic: Denies behavioral changes, Denies confusion, Reports dizziness, Denies frequent falls, Denies loss of vision, Denies numbness and Reports weakness Psychiatric Psychiatric: Denies anxiety, Denies behavioral changes, Denies confusion, Denies depression, Denies homicidal ideation and Denies suicidal ideation Endocrine Endocrine: Reports fatigue, Denies flushing and Denies palpitations Hematologic/Lymphatic Hematologic/Lymphatic: Denies easy bruising Allergic/Immunologic Allergic/Immunologic: Denies urticaria, Denies throat swelling and Denies wheezing Patient History Medical History Anxiety Avascular necrosis Chicken pox Chlamydia (~1988) Cirrhosis Colon polyp COPD (chronic obstructive pulmonary disease) Depression Esophageal varices Esophageal web Hayfever Hemorrhoids Hypothyroidism (1997) Irregular periods/menstrual cycles MRSA infection Pancytopenia Papillary adenocarcinoma of thyroid Seizures Shoulder pain Substance abuse Surgical History Anesthesia complication History of adenoidectomy History of bunionectomy History of dilation and curettage History of esophageal surgery (2016) History of left hip replacement (08/2017) History of placement of ear tubes History of right hip replacement (11/2017) History of tonsillectomy History of total thyroidectomy (1997) Family History Father No problems noted. Mother Depression Hyperlipidemia Thyroid disorder Mental health problem Brother No problems noted. Grandfather Lung cancer Cancer Grandmother Thyroid disorder Potassium disorder Hyperlipidemia Hypertension Grandfather No problems noted. Grandmother No problems noted. Family/Other No problems noted. Social History household members: significant other Smoking Status: Former smoker alcohol intake: former substance use type: does not use eating out: rarely or never Type(s) of exercise: none Smoking Status: Former smoker alcohol intake frequency: 0-2 drinks per day Substance Use Type: marijuana Exam Narrative Exam Narrative: GENERAL: [50] year old patient appears stated age. Well-developed patient, in mild distress. HEAD: Atraumatic. Normocephalic. EYES: Pupils equal round and reactive. Extraocular motions intact. No scleral icterus. No injection or drainage. ENT: Dry mucous membrane Nose without bleeding, purulent drainage. Throat without erythema, tonsillar hypertrophy or exudate. Airway patent. NECK: Trachea midline. Non tender CARDIOVASCULAR: Regular rate and rhythm without murmurs, gallops, or rubs. RESPIRATORY: Clear to auscultation. Breath sounds equal bilaterally. No wheezes, rales, or rhonchi. GASTROINTESTINAL: Abdomen soft, non-tender, nondistended. EXTREMITIES: No edema or joint tenderness. BACK: Nontender without deformity or crepitance. No flank tenderness. NEURO: AOx3. SKIN: Poor skin turgor No rash or erythema of visible areas Initial Vital Signs Initial Vital Signs: Vital Signs Temperature 97.3 F L 10/13/20 04:56 Pulse Rate 56 L 10/13/20 04:56 Respiratory Rate 18 10/13/20 04:56 Blood Pressure 105/53 L 10/13/20 04:56 Pulse Oximetry 97 10/13/20 04:56 Course Orders Ordered: Discontinued Medications Acetaminophen (Acetaminophen 325 Mg Tablet) 650 mg PO Q6HR PRN PRN Reason: Fever/Mild Pain (1-3) Aspirin (Aspirin Ec 81 Mg Tablet) 81 mg PO DAILY [facility] Admin: 10/16/20 08:08 Dose: 81 mg Documented by: Admin: 10/15/20 08:00 Dose: 81 mg Documented by: Admin: 10/14/20 08:16 Dose: 81 mg Documented by: CONNOR Enoxaparin Sodium (Enoxaparin 30 Mg/0.3 Ml Syringe) 30 mg SUBCUT DAILY [facility] Last Admin: 10/13/20 10:14 Dose: 30 mg Documented by: KENNY Folic Acid (Folic Acid 1 Mg Tablet) 1 mg PO DAILY [facility] Heparin Sodium (Porcine) (Heparin Flush (Cl/Picc/Mid-Line) 50 Unit/5 Ml Syringe) 50 unit IV BID [facility] Last Admin: 10/16/20 08:09 Dose: 50 unit Documented by: Admin: 10/15/20 21:24 Dose: 50 unit Documented by: Admin: 10/15/20 08:01 Dose: 50 unit Documented by: Admin: 10/14/20 21:02 Dose: 50 unit Documented by: Admin: 10/14/20 08:16 Dose: 50 unit Documented by: CONNOR Heparin Sodium (Porcine) (Heparin Flush (Cl/Picc/Mid-Line) 50 Unit/5 Ml Syringe) 50 unit IV PRN PRN PRN Reason: Flush Last Admin: 10/16/20 04:45 Dose: 50 unit Documented by: Admin: 10/15/20 04:32 Dose: 50 unit Documented by: Admin: 10/13/20 21:37 Dose: 50 unit Documented by: RAKEL Heparin Sodium (Porcine) (Heparin 5,000 Unit/Ml Vial) 5,000 unit SUBCUT BID [facility] Admin: 10/16/20 10:41 Dose: Not Given Documented by: Admin: 10/15/20 21:23 Dose: 5,000 unit Documented by: Admin: 10/15/20 08:00 Dose: 5,000 unit Documented by: Admin: 10/14/20 21:02 Dose: 5,000 unit Documented by: Admin: 10/14/20 08:16 Dose: 5,000 unit Documented by: CONNOR Sodium Chloride (Normal Saline 0.9%) 1,000 mls @ 1,000 mls/hr IV BOLUS ONE Stop: 10/13/20 05:51 Last Infusion: 10/13/20 06:15 Dose: 0 mls/hr Documented by: Admin: 10/13/20 05:02 Dose: 1,000 mls/hr Documented by: CTRRomanaABEAHANH Sodium Chloride (Normal Saline 0.9%) 2,886 mls @ 962 mls/hr 30 ml/kg infuse over 3 hr (2886 ml) IV NOW ONE Stop: 10/13/20 08:30 Last Infusion: 10/13/20 09:24 Dose: 0 mls/hr Documented by: Admin: 10/13/20 05:54 Dose: 962 mls/hr Documented by: PITER Levofloxacin (Levaquin) 750 mg in 150 mls @ 100 mls/hr IV NOW ONE Stop: 10/13/20 07:00 Last Infusion: 10/13/20 08:26 Dose: 0 mls/hr Documented by: Admin: 10/13/20 06:14 Dose: 100 mls/hr Documented by: PITER Magnesium Sulfate (Magnesium Sulfate) 2 gm in 50 mls @ 150 mls/hr IV NOW ONE Stop: 10/13/20 05:57 Last Infusion: 10/13/20 06:21 Dose: 0 mls/hr Documented by: PITER Cosigned by: ABWENDY Admin: 10/13/20 05:46 Dose: 150 mls/hr Documented by: PITER Cosigned by: SAMMY Magnesium Sulfate (Magnesium Sulfate) 2 gm in 50 mls @ 25 mls/hr IV NOW ONE Stop: 10/13/20 09:53 Last Infusion: 10/13/20 13:31 Dose: 0 mls/hr Documented by: CONNOR Cosigned by: KENNY Admin: 10/13/20 08:48 Dose: 25 mls/hr Documented by: [place] Cosigned by: SPABONA Sodium Chloride (Normal Saline 0.9%) 1,000 mls @ 125 mls/hr IV CONT CORDELIA Last Infusion: 10/13/20 19:18 Dose: 0 mls/hr Documented by: Admin: 10/13/20 10:13 Dose: 125 mls/hr Documented by: KENNY Sodium Chloride (Normal Saline 0.9%) 500 mls @ 1,000 mls/hr IV BOLUS ONE Stop: 10/13/20 16:32 Last Infusion: 10/13/20 17:18 Dose: 0 mls/hr Documented by: Admin: 10/13/20 15:50 Dose: 1,000 mls/hr Documented by: RAKEL Dextrose (Dextrose 5% Water) 1,000 mls @ 150 mls/hr IV CONT CORDELIA Last Infusion: 10/15/20 09:46 Dose: 0 mls/hr Documented by: Admin: 10/15/20 01:33 Dose: 150 mls/hr Documented by: Infusion: 10/15/20 00:57 Dose: 150 mls/hr Documented by: Admin: 10/14/20 18:16 Dose: 150 mls/hr Documented by: Infusion: 10/14/20 18:16 Dose: 150 mls/hr Documented by: Infusion: 10/14/20 13:37 Dose: 150 mls/hr Documented by: Admin: 10/14/20 08:15 Dose: 50 mls/hr Documented by: CONNOR Calcium Gluconate 4.65 meq/ (Sodium Chloride) 60 mls @ 180 mls/hr IV NOW ONE Stop: 10/14/20 07:51 Last Infusion: 10/14/20 09:00 Dose: 0 mls/hr Documented by: Admin: 10/14/20 08:16 Dose: 180 mls/hr Documented by: CONNOR POTASSIUM CHLORIDE IN WATER (Potassium Cl 10 Meq/100 Ml Deborah) 10 meq in 100 mls @ 100 mls/hr IV Q1H CORDELIA Stop: 10/15/20 10:44 Last Admin: 10/15/20 08:02 Dose: 100 mls/hr Documented by: Infusion: 10/15/20 07:58 Dose: 100 mls/hr Documented by: Admin: 10/15/20 06:58 Dose: 100 mls/hr Documented by: CLARICE Dextrose (Dextrose 5% Water) 1,000 mls @ 75 mls/hr IV CONT CORDELIA Last Infusion: 10/16/20 08:05 Dose: 0 mls/hr Documented by: Admin: 10/16/20 04:44 Dose: 75 mls/hr Documented by: Infusion: 10/16/20 04:44 Dose: 75 mls/hr Documented by: Admin: 10/15/20 13:37 Dose: 75 mls/hr Documented by: NILA Magnesium Sulfate (Magnesium Sulfate) 2 gm in 50 mls @ 25 mls/hr IV NOW ONE Stop: 10/15/20 14:41 Last Admin: 10/15/20 13:36 Dose: 25 mls/hr Documented by: NILA Cosigned by: CONNOR Insulin Human Lispro (Insulin Lispro 100 Unit/Ml 3ml Vial) 0 unit SUBCUT ACHS CORDELIA; Protocol Last Admin: 10/16/20 08:08 Dose: 4 unit Documented by: NILA Cosigned by: KENNY Admin: 10/15/20 21:22 Dose: Not Given Documented by: Admin: 10/15/20 16:57 Dose: 1 unit Documented by: SAHARA Cosigned by: ADITI Admin: 10/15/20 12:42 Dose: 1 unit Documented by: NILA Cosigned by: ANDERSON Admin: 10/15/20 08:02 Dose: 1 unit Documented by: NILA Cosigned by: CONNOR Admin: 10/14/20 20:46 Dose: Not Given Documented by: Admin: 10/14/20 16:19 Dose: 2 unit Documented by: RAKEL Cosigned by: KENNY Admin: 10/14/20 12:29 Dose: 1 unit Documented by: CONNOR Cosigned by: KENNY Admin: 10/14/20 08:17 Dose: 1 unit Documented by: CONNOR Headigned by: KENNY Insulin Human Lispro (Insulin Lispro 100 Unit/Ml 3ml Vial) 0 unit SUBCUT ACHS CORDELIA; Protocol Levothyroxine Sodium (Levothyroxine Inj 100 Mcg/5 Ml Vial) 100 mcg IV DAILY@1600 [facility] Last Admin: 10/14/20 14:49 Dose: 100 mcg Documented by: Admin: 10/13/20 17:12 Dose: 100 mcg Documented by: RAKEL Levothyroxine Sodium (Levothyroxine 100 Mcg Tablet) 200 mcg PO 0600 [facility] Last Admin: 10/16/20 06:05 Dose: 200 mcg Documented by: Admin: 10/15/20 06:24 Dose: 200 mcg Documented by: CLARICE Liothyronine Sodium (Liothyronine 5 Mcg Tablet) 10 mcg PO DAILY@0600 [facility] Last Admin: 10/16/20 06:05 Dose: 10 mcg Documented by: Admin: 10/15/20 06:23 Dose: 10 mcg Documented by: Admin: 10/14/20 05:52 Dose: 10 mcg Documented by: DEMETRIO Lorazepam (Lorazepam 2 Mg/Ml Inj) 0 mg IV CIWAPRN PRN; Protocol PRN Reason: Alcohol Withdrawal Lorazepam (Lorazepam 1 Mg Tablet) 0 mg PO CIWAPRN PRN; Protocol PRN Reason: Alcohol Withdrawal Multivitamins (Multivitamin 1 Tablet) 1 tab PO DAILY [facility] Naloxone HCl (Naloxone 0.4 Mg/Ml Vial) 0.2 mg IV Q2MIN PRN PRN Reason: Opiate Reversal Naloxone HCl (Naloxone 0.4 Mg/Ml Vial) 0.2 mg IV Q2MIN PRN PRN Reason: Opiate Reversal Asenapine Maleate [ Saphris] 5 Mg Tablet , Sublingual 10 mg SL BEDTIME [facility] Last Admin: 10/15/20 22:02 Dose: 10 mg Documented by: Admin: 10/14/20 21:02 Dose: 10 mg Documented by: RAKEL Ondansetron HCl (Ondansetron 4 Mg/2 Ml Inj) 4 mg IV Q8HR PRN PRN Reason: Nausea And Vomiting Pantoprazole Sodium (Pantoprazole Dr 20 Mg Tablet) 20 mg PO 0600 [facility] Last Admin: 10/16/20 06:05 Dose: 20 mg Documented by: Admin: 10/15/20 06:26 Dose: 20 mg Documented by: CLARICE Potassium Chloride (Potassium Chloride 20 Meq Tab) 40 meq PO NOW ONE Stop: 10/15/20 08:26 Last Admin: 10/15/20 09:45 Dose: 40 meq Documented by: NILA Pravastatin Sodium (Pravastatin 20 Mg Tablet) 20 mg PO BEDTIME [facility] Last Admin: 10/15/20 21:24 Dose: 20 mg Documented by: Admin: 10/14/20 21:02 Dose: 20 mg Documented by: RAKEL Sertraline HCl (Sertraline 50 Mg Tablet) 50 mg PO DAILY [facility] Last Admin: 10/16/20 08:08 Dose: 50 mg Documented by: Admin: 10/15/20 08:04 Dose: 50 mg Documented by: NILA Sodium Chloride (Sodium Chloride 0.9% Flush) 10 ml IV PRN PRN PRN Reason: Flush Last Admin: 10/16/20 04:45 Dose: 10 ml Documented by: Admin: 10/15/20 04:32 Dose: 10 ml Documented by: CLARICE Sodium Chloride (Sodium Chloride 0.9% Flush) 10 ml IV BID [facility] Last Admin: 10/16/20 08:09 Dose: 10 ml Documented by: Admin: 10/15/20 21:24 Dose: 10 ml Documented by: Admin: 10/15/20 08:04 Dose: 10 ml Documented by: Admin: 10/14/20 21:02 Dose: 10 ml Documented by: Admin: 10/14/20 08:21 Dose: 10 ml Documented by: Admin: 10/13/20 21:37 Dose: Not Given Documented by: RAKEL Thiamine HCl (Thiamine 100 Mg Tablet) 100 mg PO DAILY [facility] Stop: 10/17/20 09:01 Vital Signs Vital signs: Vital Signs - 8 hr 10/13/20 04:56 Temperature 97.3 F L Pulse Rate 56 L Respiratory Rate 18 Blood Pressure 105/53 L Pulse Oximetry 97 MDM - Nausea/Vomiting/Diarrhea Lab Data Result diagrams: 10/16/20 04:43 10/16/20 04:43 Labs: Lab Results 10/13/20 10/13/20 10/13/20 Range/Units 05:00 05:00 05:00 WBC 14.4 H (4.5-11.0) X10^3/uL RBC 4.47 (4.0-5.2) X10^6/uL Hgb 11.9 L (12.0-16.0) g/dL Hct 34.9 L (36-46) % MCV 78.0 L (80-100) fL MCH 26.6 (26-34) PG MCHC 34.1 (30-36) % RDW 13.7 (11.6-14.8) % Plt Count 341 (150-400) X10^3/uL Neut % (Auto) 68.3 (50-75) % Lymph % (Auto) 21.4 L (25-40) % [place] % (Auto) 8.0 (3-14) % Eos % (Auto) 1.2 L (2-4) % Baso % (Auto) 1.1 (0-2) % Neut # (Auto) 9800 H (8029-8412) /uL Lymph # (Auto) 3100 (9219-1281) /uL [place] # (Auto) 1200 H (0-900) /uL Eos # (Auto) 200 (0-450) /uL Baso # (Auto) 200 H (0-100) /uL VBG pH (7.33-7.43) VBG pCO2 (45-50) mmHg VBG pO2 (35-45) mmHg VBG HCO3 (23-28) mmol/L VBG Total CO2 (24-29) mmol/L VBG O2 Saturation (70-75) % VBG Base Excess (0-4) mmol/L Sodium 114 L* (137-145) mmol/L Potassium 3.2 L (3.4-5.1) mmol/L Chloride 74 L* (98-107) mmol/L Carbon Dioxide 26 (22-32) mmol/L BUN 41 H (7-17) mg/dL Creatinine 3.84 H (0.52-1.04) mg/dL Estimated GFR 12.5 L (>60) mL/min BUN/Creatinine Ratio 10.7 (6-22) Glucose 161 H (70-100) mg/dL Serum Osmolality (275-295) mOsmol/kg Lactate 2.7 H (0.7-2.1) mmol/L Calcium 7.8 L (8.4-10.2) mg/dL Phosphorus (2.5-4.5) mg/dL Magnesium 1.0 L (1.6-2.3) mg/dL Total Bilirubin 0.4 (0.2-1.3) mg/dL AST 24 (14-36) IU/L ALT 22 (<35) IU/L Alkaline Phosphatase 94 (38-126) U/L Total Protein 7.4 (6.3-8.2) g/dL Albumin 4.2 (3.5-5.0) g/dL Globulin 3.2 (1.7-4.1) g/dL Albumin/Globulin Ratio 1.3 (1.0-2.8) TSH (0.47-4.68) uIU/mL Free T4 (0.78-2.19) ng/dL SARS-CoV-2 (PCR) (Negative) 10/13/20 10/13/20 10/13/20 Range/Units 05:00 05:00 05:00 WBC (4.5-11.0) X10^3/uL RBC (4.0-5.2) X10^6/uL Hgb (12.0-16.0) g/dL Hct (36-46) % MCV (80-100) fL MCH (26-34) PG MCHC (30-36) % RDW (11.6-14.8) % Plt Count (150-400) X10^3/uL Neut % (Auto) (50-75) % Lymph % (Auto) (25-40) % [place] % (Auto) (3-14) % Eos % (Auto) (2-4) % Baso % (Auto) (0-2) % Neut # (Auto) (9883-3397) /uL Lymph # (Auto) (0347-1216) /uL [place] # (Auto) (0-900) /uL Eos # (Auto) (0-450) /uL Baso # (Auto) (0-100) /uL VBG pH (7.33-7.43) VBG pCO2 (45-50) mmHg VBG pO2 (35-45) mmHg VBG HCO3 (23-28) mmol/L VBG Total CO2 (24-29) mmol/L VBG O2 Saturation (70-75) % VBG Base Excess (0-4) mmol/L Sodium (137-145) mmol/L Potassium (3.4-5.1) mmol/L Chloride (98-107) mmol/L Carbon Dioxide (22-32) mmol/L BUN (7-17) mg/dL Creatinine (0.52-1.04) mg/dL Estimated GFR (>60) mL/min BUN/Creatinine Ratio (6-22) Glucose (70-100) mg/dL Serum Osmolality 254 L (275-295) mOsmol/kg Lactate (0.7-2.1) mmol/L Calcium (8.4-10.2) mg/dL Phosphorus 4.9 H (2.5-4.5) mg/dL Magnesium (1.6-2.3) mg/dL Total Bilirubin (0.2-1.3) mg/dL AST (14-36) IU/L ALT (<35) IU/L Alkaline Phosphatase (38-126) U/L Total Protein (6.3-8.2) g/dL Albumin (3.5-5.0) g/dL Globulin (1.7-4.1) g/dL Albumin/Globulin Ratio (1.0-2.8) TSH < 0.02 L (0.47-4.68) uIU/mL Free T4 1.74 (0.78-2.19) ng/dL SARS-CoV-2 (PCR) (Negative) 10/13/20 10/13/20 10/13/20 Range/Units 05:35 05:53 07:30 WBC (4.5-11.0) X10^3/uL RBC (4.0-5.2) X10^6/uL Hgb (12.0-16.0) g/dL Hct (36-46) % MCV (80-100) fL MCH (26-34) PG MCHC (30-36) % RDW (11.6-14.8) % Plt Count (150-400) X10^3/uL Neut % (Auto) (50-75) % Lymph % (Auto) (25-40) % [place] % (Auto) (3-14) % Eos % (Auto) (2-4) % Baso % (Auto) (0-2) % Neut # (Auto) (0916-6262) /uL Lymph # (Auto) (2172-6817) /uL [place] # (Auto) (0-900) /uL Eos # (Auto) (0-450) /uL Baso # (Auto) (0-100) /uL VBG pH 7.36 (7.33-7.43) VBG pCO2 42.6 L (45-50) mmHg VBG pO2 35 (35-45) mmHg VBG HCO3 24 (23-28) mmol/L VBG Total CO2 25 (24-29) mmol/L VBG O2 Saturation 65 L (70-75) % VBG Base Excess -1.0 L (0-4) mmol/L Sodium (137-145) mmol/L Potassium (3.4-5.1) mmol/L Chloride (98-107) mmol/L Carbon Dioxide (22-32) mmol/L BUN (7-17) mg/dL Creatinine (0.52-1.04) mg/dL Estimated GFR (>60) mL/min BUN/Creatinine Ratio (6-22) Glucose (70-100) mg/dL Serum Osmolality (275-295) mOsmol/kg Lactate 1.5 (0.7-2.1) mmol/L Calcium (8.4-10.2) mg/dL Phosphorus (2.5-4.5) mg/dL Magnesium (1.6-2.3) mg/dL Total Bilirubin (0.2-1.3) mg/dL AST (14-36) IU/L ALT (<35) IU/L Alkaline Phosphatase (38-126) U/L Total Protein (6.3-8.2) g/dL Albumin (3.5-5.0) g/dL Globulin (1.7-4.1) g/dL Albumin/Globulin Ratio (1.0-2.8) TSH (0.47-4.68) uIU/mL Free T4 (0.78-2.19) ng/dL SARS-CoV-2 (PCR) Negative (Negative) Point of Care Testing Glucose POC 182 Discharge Plan Departure Patient Disposition: Admitted As Inpatient Clinical Impression: Acute dehydration, Hypomagnesemia, Acute hypokalemia Vomiting Qualifiers: Vomiting type: unspecified Vomiting Intractability: non-intractable Nausea presence: with nausea Qualified Code(s): R11.2 - Nausea with vomiting, unspecified Admit Date/Time: 10/13/20 08:03 Admit Provider: Chirag Garcia
[2020-10-13] MEDS: SODIUM CHLORIDE 0.9% 1,000 ML 1000 ML IV (05:02)
[2020-10-13 05:12] LABS: Add Manual Diff / Slide Review NO; Basophils Absolute Auto 200 /uL (0-100); Basophils Percent Auto 1.1 % (0-2); Eosinophils Absolute Auto 200 /uL (0-450); Eosinophils Percent Auto 1.2 % (2-4); Hematocrit 34.9 % (36-46); Hemoglobin 11.9 g/dL (12.0-16.0); Lymphocytes Absolute Auto 3100 /uL (1100-4500); Lymphocytes Percent Auto 21.4 % (25-40); Mean Corpuscular HGB Conc 34.1 % (30-36); Mean Corpuscular Hemoglobin 26.6 PG (26-34); Monocytes Absolute Auto 1200 /uL (0-900); Neutrophils Absolute Auto 9800 /uL (1500-7000); Neutrophils Percent Auto 68.3 % (50-75); Platelet Count 341 X10^3/uL (150-400); Red Blood Cell Count 4.47 X10^6/uL (4.0-5.2); Red Cell Distribution Width 13.7 % (11.6-14.8); White Blood Cell Count 14.4 X10^3/uL (4.5-11.0)
[2020-10-13 05:21] LABS: Lactate (Lactic Acid) 2.7 mmol/L (0.7-2.1)
[2020-10-13 05:22] LABS: Alanine Aminotransferase 22 IU/L (<35); Albumin 4.2 g/dL (3.5-5.0); Albumin Globulin Ratio 1.3 (1.0-2.8); Alkaline Phosphatase 94 U/L (38-126); Aspartate Aminotransferase 24 IU/L (14-36); BUN Creatinine Ratio 10.7 (6-22); Bilirubin Total 0.4 mg/dL (0.2-1.3); Blood Urea Nitrogen 41 mg/dL (7-17); Calcium 7.8 mg/dL (8.4-10.2); Carbon Dioxide 26 mmol/L (22-32); Estimated Glomerular Filt Rate 12.5 mL/min (>60); Globulin 3.2 g/dL (1.7-4.1); Glucose 161 mg/dL (70-100); HEMOLYSIS < 15 (0-50); Potassium 3.2 mmol/L (3.4-5.1); Total Protein 7.4 g/dL (6.3-8.2)
[2020-10-13 05:31] LABS: Sodium 114 mmol/L (137-145)
--- NOTE | 2020-10-13 05:31 | DI.RAD.S_ITS ---
PROCEDURE: XR CHEST 1V INDICATIONS: sepsis TECHNIQUE: One view of the chest was acquired. COMPARISON: None. FINDINGS: Surgical changes and devices: None. Lungs and pleura: Lungs are clear. No pleural effusions or pneumothorax. Mediastinum: Mediastinal contours appear normal. Heart size is normal. Bones and chest wall: No suspicious bony lesions. Overlying soft tissues appear unremarkable. IMPRESSION: Normal for age, source of current sepsis symptoms is not seen. Dictated by: Bradley Santoyo M.D. on 10/13/2020 at 8:25 Approved by: Bradley Santoyo M.D. on 10/13/2020 at 8:26
[2020-10-13 05:32] LABS: Chloride 74 mmol/L (98-107)
[2020-10-13] MEDS: MAGNESIUM SULFATE 2 GM/50 ML PIGGYBACK IV ×2 (05:46→08:48)
[2020-10-13] MEDS: SODIUM CHLORIDE 0.9% 962 ML IV (05:54)
--- NOTE | 2020-10-13 05:57 | DI.US.S_ITS ---
PROCEDURE: US RENAL COMPLETE INDICATIONS: RENAL FAILURE TECHNIQUE: Real-time scanning was performed of the kidneys and bladder, with image documentation. COMPARISON: None. FINDINGS: Kidneys: Kidneys are normal in size. Right kidney measures 12.3 cm long; left kidney measures 13.8 cm long. Right renal cortical thickness is 2.1 cm; left renal cortical thickness is 1.9 cm. Renal cortical echotexture is normal. No hydronephrosis or nephrolithiasis. No suspicious solid mass lesions. Bladder: Bladder not distended. Miscellaneous: No free pelvic fluid. IMPRESSION: No hydronephrosis or nephrolithiasis found. Bladder is not distended. Source of renal insufficiency is not found. Dictated by: Bradley Santoyo M.D. on 10/13/2020 at 8:31 Approved by: Bradley Santoyo M.D. on 10/13/2020 at 8:31
[2020-10-13] MEDS: levoFLOXacin 750 MG/150 ML PIGGYBACK 100 MG IV (06:14)
[2020-10-13 06:29] LABS: HCO3 VBG 24 mmol/L (23-28); PCO2 VBG 42.6 mmHg (45-50); PO2 VBG 35 mmHg (35-45); Total CO2 VBG 25 mmol/L (24-29)
[2020-10-13 06:30] LABS: Oxygen Saturation VBG 65 % (70-75); pH VBG 7.36 (7.33-7.43)
[2020-10-13 06:43] LABS: Phosphorous 4.9 mg/dL (2.5-4.5)
[2020-10-13 07:08] LABS: Reflexed Lactate in 2 Hours Y
[2020-10-13 07:27] LABS: COVID19 - ADMIT (NP swab/PCR) Negative (Negative)
[2020-10-13 07:50] LABS: Lactate 2HR (Lactic Acid Rflx) 1.5 mmol/L (0.7-2.1)
[2020-10-13 08:32] LABS: Creatinine Urine Random 43.2 mg/dL; Sodium Urine Random 35 mmol/L (30-90)
[2020-10-13 08:42] LABS: BUN Creatinine Ratio 11.6 (6-22); Blood Urea Nitrogen 38 mg/dL (7-17); Calcium 7.2 mg/dL (8.4-10.2); Carbon Dioxide 20 mmol/L (22-32); Chloride 81 mmol/L (98-107); Glucose 189 mg/dL (70-100); HEMOLYSIS < 15 (0-50); Potassium 3.5 mmol/L (3.4-5.1)
[2020-10-13 08:46] LABS: Sodium 115 mmol/L (137-145)
[2020-10-13 09:35] LABS: TSH w/ Reflex to FT4 < 0.02 uIU/mL (0.47-4.68)
[2020-10-13 10:09] LABS: Free T4, Direct Thyroxine 1.74 ng/dL (0.78-2.19)
[2020-10-13 10:12] LABS: Appearance Urine UA CLEAR; Bacteria Urine None Seen; Bilirubin Urine UA NEGATIVE (NEGATIVE); Color Urine UA YELLOW; Glucose Urine UA 1+ g/dL (Negative); Ketones Urine UA NEGATIVE (NEGATIVE); Leukocyte Esterase Urine UA NEGATIVE (NEGATIVE); Nitrite Urine UA NEGATIVE (Negative); Occult Blood Urine UA 1+ (Negative); Protein Urine UA NEGATIVE (Negative); RBC Urine None Seen (0-5/HPF); Urobilinogen Urine UA 0.2 E.U./dL (0.2); WBC Urine None Seen (0-5/HPF)
[2020-10-13 10:13] LABS: pH Urine UA 5.5 (4.5-8.0)
[2020-10-13] MEDS: SODIUM CHLORIDE 0.9% 1,000 ML 125 ML IV (10:13)
[2020-10-13] MEDS: ENOXAPARIN 30 MG/0.3 ML SYRINGE SUBCUT (10:14)
[2020-10-13 10:48] LABS: Culture Indicated Urine Cult Not Indicated; Squamous Epithelial Cell Urine 5-10 /HPF (0-5/HPF)
[2020-10-13 12:37] LABS: Magnesium 2.5 mg/dL (1.6-2.3)
--- NOTE | 2020-10-13 13:33 | PC.NURSE ---
PT ADMITTED FOR HYPONATREMIA AND DIZZINESS- IVF CONTINUES AT 125CC/H SERIAL LABS PENDING IS PICC LINE PLACEMENT. PT HAS BEEN TAKING LARGE VOLUMES OF H20/ICE AND BEDSIDE STAFF HAS PUT A LIMIT OF 500ML Q SHIFT. LUNGS DIM BUT CLEAR AND NO SIGNS OR SYMPTOMS OF NAUSEA, VOMITING, OR DIARRHEA SINCE ARRIVAL TO HOSPTIAL- TAKING DIET WELL
[2020-10-13] MEDS: SODIUM CHLORIDE 0.9% 500 ML 1000 ML IV (15:50)
[2020-10-13 15:51] LABS: BUN Creatinine Ratio 11.6 (6-22); Blood Urea Nitrogen 37 mg/dL (7-17); Calcium 7.3 mg/dL (8.4-10.2); Carbon Dioxide 18 mmol/L (22-32); Chloride 82 mmol/L (98-107); Estimated Glomerular Filt Rate 15.5 mL/min (>60); Glucose 108 mg/dL (70-100); HEMOLYSIS < 15 (0-50); Potassium 3.2 mmol/L (3.4-5.1)
[2020-10-13 16:14] LABS: Sodium 115 mmol/L (137-145)
--- NOTE | 2020-10-13 16:42 | PC.NURSE ---
Addendum entered by Kari Denise R.N. 10/13/20 23:19: MAP improved after bolus, per hospitalist MAP >60 goal. Continuous LR discontinued after sodium increased to 118. Repeat labs showed sodium increase to 120. Patient is on 1500ml fluid restriction, continues to ask for more fluids/ice. Mouth swabs offered. Still need stool sample for culture. Original Note: Patient BP 81/54 MAP 58. Patient asymptomatic, HR chris, spO2 100%, RA, A/Ox4. Patient has no complaints. Discussed with hospitalist, verbal order received for 500ml NS bolus now. PICC line to be inserted, will redraw CBC after. Hospitalist at bedside.
[2020-10-13] MEDS: LEVOTHYROXINE INJ 100 MCG/5 ML VIAL IV (17:12)
[2020-10-13 17:56] LABS: Blood Urea Nitrogen 35 mg/dL (7-17); Calcium 6.7 mg/dL (8.4-10.2); Carbon Dioxide 23 mmol/L (22-32); Chloride 86 mmol/L (98-107); Estimated Glomerular Filt Rate 17.2 mL/min (>60); Glucose 107 mg/dL (70-100); HEMOLYSIS < 15 (0-50); Potassium 3.6 mmol/L (3.4-5.1)
[2020-10-13 18:10] LABS: Sodium 118 mmol/L (137-145)
--- NOTE | 2020-10-13 21:34 | P.HP_ITS ---
History of Present Illness History of Present Illness Date Patient Seen: 10/13/20 Time Patient Seen: 07:35 Chief complaint: dizzy, nausea, vomiting md made med change Narrative: Ms. Burch is a 50W with PMH Type 2 DM, EtOH cirrhosis with esophageal varices s/p banding, etoh seizures, thyroid cancer s/p thyroidectomy, bipolar, depression who presented to the hospital with two weeks of nausea, vomiting, and diarrhea. She thinks her symptoms are related to her increasing dose of glipizide from 5 to 10mg daily. She has also noted dizziness. Otherwise, she has no new medications. No abdominal pain. No coughing, shortness of breath. No dysuria. She does note she drinks quite a bit of water and eats a significant amount of ice chips. She has been on diuretics at home, but does not think the doses have changed. She has noted her urine becoming darker recently, and less volume that she's urinating. In the ER workup was done, she was noted to have hypotension with systolic blood pressures in the 80s. Labs showed WBC of 14.4, hemoglobin 11.9, Na 114, k 3.2, creatinine 3.84, lactate 2.7, magnesium 1.0. UA showed no evidence of infection. She was ordered sepsis bolus of IV fluid and given IV levofloxacin and admitted for further treatment. Patient History Medical History Anxiety Avascular necrosis Chicken pox Chlamydia (~1988) Cirrhosis Colon polyp COPD (chronic obstructive pulmonary disease) Depression Esophageal varices Esophageal web Hayfever Hemorrhoids Hypothyroidism (1997) Irregular periods/menstrual cycles MRSA infection Pancytopenia Papillary adenocarcinoma of thyroid Seizures Shoulder pain Substance abuse Surgical History Anesthesia complication History of adenoidectomy History of bunionectomy History of dilation and curettage History of esophageal surgery (2016) History of left hip replacement (08/2017) History of placement of ear tubes History of right hip replacement (11/2017) History of tonsillectomy History of total thyroidectomy (1997) Family & Social History Family History Father No problems noted. Mother Depression Hyperlipidemia Thyroid disorder Mental health problem Brother No problems noted. Grandfather Lung cancer Cancer Grandmother Thyroid disorder Potassium disorder Hyperlipidemia Hypertension Grandfather No problems noted. Grandmother No problems noted. Family/Other No problems noted. Social History: household members significant other Prior Living Arrangements House Safety & Behavioral: Feels Safe in Current Yes Environment Been Physically Hurt or No Threatened By a Person Suicidal Ideation Description None Suicide Plan Description No Plan Tobacco & Substance use: Smoking Status Former smoker alcohol intake former alcohol intake frequency 0-2 drinks per day Substance Use Type marijuana Meds Home Medications and Allergies Home Medications Medication Instructions Recorded Confirmed Type Complete Multivitamin 1 tab PO DAILY 04/13/18 10/13/20 History aspirin 81 mg tablet,delayed 81 mg PO DAILY 12/17/19 10/13/20 History release hydroxyzine HCl 50 mg tablet 50 mg PO TID PRN #90 tab 02/07/20 10/13/20 Rx levothyroxine 200 mcg tablet 200 mcg PO DAILY #90 tab 02/14/20 10/13/20 Rx sertraline 50 mg PO DAILY 02/21/20 10/13/20 History blood sugar diagnostic #400 each 03/07/20 10/13/20 Rx blood-glucose meter #1 each 03/07/20 10/13/20 Rx lancets #400 each 03/07/20 10/13/20 Rx pravastatin 20 mg tablet 20 mg PO BEDTIME #90 tab 03/22/20 10/13/20 Rx spironolactone 50 mg tablet See Rx Instructions .ROUTE 05/10/20 10/13/20 Rx .COMPLEX #90 tab nadolol 40 mg tablet 40 mg PO DAILY #90 tab 05/15/20 10/13/20 Rx lisinopril 5 mg tablet 5 mg PO DAILY #90 tab 05/23/20 10/13/20 Rx omeprazole 20 mg capsule,delayed 20 mg PO DAILY #90 cap 05/29/20 10/13/20 Rx release metformin 1,000 mg tablet 1,000 mg PO BID #180 tab 07/16/20 10/13/20 Rx liothyronine 5 mcg tablet 10 mcg PO DAILY #180 tab 08/22/20 10/13/20 Rx furosemide 40 mg tablet 40 mg PO DAILY #90 tab 09/28/20 10/13/20 Rx glipizide 10 mg tablet, extended 10 mg PO DAILY #30 tab 10/02/20 10/13/20 Rx release 24 hr asenapine maleate [Saphris] 10 mg SUBLINGUAL BEDTIME 10/13/20 10/13/20 History Allergies Allergy/AdvReac Type Severity Reaction Status Date / Time Penicillins [PENICILLINS] Allergy Unknown Verified 10/13/20 04:56 Sulfa (Sulfonamide Allergy Unknown Verified 10/13/20 04:56 Antibiotics) [SULFA (SULFONAMIDE ANTIBIOTICS)] sulfamethoxazole Allergy Verified 10/13/20 04:56 [From Bactrim] trimethoprim [From Bactrim] Allergy Verified 10/13/20 04:56 Review of Systems Review of Systems Narrative: 14 systems reviewed and negative aside from what is noted in HPI Exam Vital Signs (past 8 hours): - 10/13/20 14:00 10/13/20 16:00 10/13/20 16:59 Temperature 96.8 F L 97 F L Pulse Rate 56 L 56 L 58 L Respiratory Rate 14 16 16 Blood Pressure 87/49 L 81/45 L 84/49 L Pulse Oximetry 99 98 99 10/13/20 17:00 10/13/20 18:00 10/13/20 18:55 Temperature 97 F L 97.2 F L 97.1 F L Pulse Rate 58 L 59 L 55 L Respiratory Rate 16 19 18 Blood Pressure 84/49 L 87/46 L 82/49 L Pulse Oximetry 99 100 100 10/13/20 19:00 10/13/20 20:00 10/13/20 21:00 Temperature 97.1 F L 97.5 F L 97.1 F L Pulse Rate 55 L 56 L 58 L Respiratory Rate 18 19 18 Blood Pressure 82/49 L 92/55 L 90/55 L Pulse Oximetry 100 100 100 Oxygen Delivery Method Room Air Oxygen Flow Rate 0 Narrative Exam Narrative: GEN: no acute distress HEENT: dry mucous membranes, PERRL NECK: no JVD, trachea midline CV: regular rate and rhythm, no mumurs PULM: clear bilaterally EXT: warm and well perfused with no edema SKIN: no rashes NEURO: awake and alert, but slow to response, confused, no focal deficits PSYCH: pleasant and cooperative Objective Labs Result Diagrams: 10/13/20 05:00 10/13/20 17:20 Labs: Laboratory Results - last 24 hr 10/13/20 10/13/20 10/13/20 05:00 05:00 05:00 WBC 14.4 H RBC 4.47 Hgb 11.9 L Hct 34.9 L MCV 78.0 L MCH 26.6 MCHC 34.1 RDW 13.7 Plt Count 341 Neut % (Auto) 68.3 Lymph % (Auto) 21.4 L [place] % (Auto) 8.0 Eos % (Auto) 1.2 L Baso % (Auto) 1.1 Neut # (Auto) 9800 H Lymph # (Auto) 3100 [place] # (Auto) 1200 H Eos # (Auto) 200 Baso # (Auto) 200 H VBG pH VBG pCO2 VBG pO2 VBG HCO3 VBG Total CO2 VBG O2 Saturation VBG Base Excess Sodium 114 L* Potassium 3.2 L Chloride 74 L* Carbon Dioxide 26 BUN 41 H Creatinine 3.84 H Estimated GFR 12.5 L BUN/Creatinine Ratio 10.7 Glucose 161 H Lactate 2.7 H Calcium 7.8 L Phosphorus Magnesium 1.0 L Total Bilirubin 0.4 AST 24 ALT 22 Alkaline Phosphatase 94 Total Protein 7.4 Albumin 4.2 Globulin 3.2 Albumin/Globulin Ratio 1.3 TSH Free T4 Urine Color Urine Appearance Urine pH Ur Specific [place] Urine Protein Urine Glucose (UA) Urine Ketones Urine Occult Blood Urine Nitrate Urine Bilirubin Urine Urobilinogen Ur Leukocyte Esterase Urine RBC Urine WBC Ur Squamous Epith Cells Urine Bacteria Ur Culture Indicated? Ur Random Sodium Urine Creatinine Nasal Screen MRSA (PCR) SARS-CoV-2 (PCR) 10/13/20 10/13/20 10/13/20 05:00 05:00 05:35 WBC RBC Hgb Hct MCV MCH MCHC RDW Plt Count Neut % (Auto) Lymph % (Auto) [place] % (Auto) Eos % (Auto) Baso % (Auto) Neut # (Auto) Lymph # (Auto) [place] # (Auto) Eos # (Auto) Baso # (Auto) VBG pH VBG pCO2 VBG pO2 VBG HCO3 VBG Total CO2 VBG O2 Saturation VBG Base Excess Sodium Potassium Chloride Carbon Dioxide BUN Creatinine Estimated GFR BUN/Creatinine Ratio Glucose Lactate Calcium Phosphorus 4.9 H Magnesium Total Bilirubin AST ALT Alkaline Phosphatase Total Protein Albumin Globulin Albumin/Globulin Ratio TSH < 0.02 L Free T4 1.74 Urine Color Urine Appearance Urine pH Ur Specific [place] Urine Protein Urine Glucose (UA) Urine Ketones Urine Occult Blood Urine Nitrate Urine Bilirubin Urine Urobilinogen Ur Leukocyte Esterase Urine RBC Urine WBC Ur Squamous Epith Cells Urine Bacteria Ur Culture Indicated? Ur Random Sodium Urine Creatinine Nasal Screen MRSA (PCR) SARS-CoV-2 (PCR) Negative 10/13/20 10/13/20 10/13/20 05:53 07:30 08:05 WBC RBC Hgb Hct MCV MCH MCHC RDW Plt Count Neut % (Auto) Lymph % (Auto) [place] % (Auto) Eos % (Auto) Baso % (Auto) Neut # (Auto) Lymph # (Auto) [place] # (Auto) Eos # (Auto) Baso # (Auto) VBG pH 7.36 VBG pCO2 42.6 L VBG pO2 35 VBG HCO3 24 VBG Total CO2 25 VBG O2 Saturation 65 L VBG Base Excess -1.0 L Sodium 115 L* Potassium 3.5 Chloride 81 L Carbon Dioxide 20 L BUN 38 H Creatinine 3.29 H Estimated GFR 15.0 L BUN/Creatinine Ratio 11.6 Glucose 189 H Lactate 1.5 Calcium 7.2 L Phosphorus Magnesium Total Bilirubin AST ALT Alkaline Phosphatase Total Protein Albumin Globulin Albumin/Globulin Ratio TSH Free T4 Urine Color Urine Appearance Urine pH Ur Specific [place] Urine Protein Urine Glucose (UA) Urine Ketones Urine Occult Blood Urine Nitrate Urine Bilirubin Urine Urobilinogen Ur Leukocyte Esterase Urine RBC Urine WBC Ur Squamous Epith Cells Urine Bacteria Ur Culture Indicated? Ur Random Sodium Urine Creatinine Nasal Screen MRSA (PCR) SARS-CoV-2 (PCR) 10/13/20 10/13/20 10/13/20 08:13 09:40 10:07 WBC RBC Hgb Hct MCV MCH MCHC RDW Plt Count Neut % (Auto) Lymph % (Auto) [place] % (Auto) Eos % (Auto) Baso % (Auto) Neut # (Auto) Lymph # (Auto) [place] # (Auto) Eos # (Auto) Baso # (Auto) VBG pH VBG pCO2 VBG pO2 VBG HCO3 VBG Total CO2 VBG O2 Saturation VBG Base Excess Sodium Potassium Chloride Carbon Dioxide BUN Creatinine Estimated GFR BUN/Creatinine Ratio Glucose Lactate Calcium Phosphorus Magnesium Total Bilirubin AST ALT Alkaline Phosphatase Total Protein Albumin Globulin Albumin/Globulin Ratio TSH Free T4 Urine Color Yellow Urine Appearance Clear Urine pH 5.5 Ur Specific [place] 1.010 Urine Protein Negative Urine Glucose (UA) 1+ H Urine Ketones Negative Urine Occult Blood 1+ H Urine Nitrate Negative Urine Bilirubin Negative Urine Urobilinogen 0.2 Ur Leukocyte Esterase Negative Urine RBC None seen Urine WBC None seen Ur Squamous Epith Cells 5-10 /hpf H Urine Bacteria None seen Ur Culture Indicated? Cult not indicated Ur Random Sodium 35 Urine Creatinine 43.2 Nasal Screen MRSA (PCR) Positive for mrsa H SARS-CoV-2 (PCR) 10/13/20 10/13/20 10/13/20 12:15 12:15 17:20 WBC RBC Hgb Hct MCV MCH MCHC RDW Plt Count Neut % (Auto) Lymph % (Auto) [place] % (Auto) Eos % (Auto) Baso % (Auto) Neut # (Auto) Lymph # (Auto) [place] # (Auto) Eos # (Auto) Baso # (Auto) VBG pH VBG pCO2 VBG pO2 VBG HCO3 VBG Total CO2 VBG O2 Saturation VBG Base Excess Sodium 115 L* 118 L* Potassium 3.2 L 3.6 Chloride 82 L 86 L Carbon Dioxide 18 L 23 BUN 37 H 35 H Creatinine 3.19 H 2.92 H Estimated GFR 15.5 L 17.2 L BUN/Creatinine Ratio 11.6 12.0 Glucose 108 H 107 H Lactate Calcium 7.3 L 6.7 L Phosphorus Magnesium 2.5 H Total Bilirubin AST ALT Alkaline Phosphatase Total Protein Albumin Globulin Albumin/Globulin Ratio TSH Free T4 Urine Color Urine Appearance Urine pH Ur Specific [place] Urine Protein Urine Glucose (UA) Urine Ketones Urine Occult Blood Urine Nitrate Urine Bilirubin Urine Urobilinogen Ur Leukocyte Esterase Urine RBC Urine WBC Ur Squamous Epith Cells Urine Bacteria Ur Culture Indicated? Ur Random Sodium Urine Creatinine Nasal Screen MRSA (PCR) SARS-CoV-2 (PCR) Assessment & Plan Assessment & Plan narrative: Ms. Burch is 50W who presents with symptomatic hyponatremia 1. Hypovolemic hyponatremia with hypotension -overall clinical picture is consistent with hypovolemia from GI losses with vomiting and diarrhea -patient has elevated creatinine likely from prerenal hypovolemia -is also on diuretics at home which likely worsened hyponatremia as she continued taking them despite GI symptoms -has history of hypothyroidism, TSH low, but free t4 normal so less likely to be a cause -she also has psych history and has been drinking lots of water which could contribute -initially she needed volume resuscitation for hypotension with blood pressure as low as 70s -now that blood pressure improved will stop normal saline -checking BMP q4 with improvement in Na from 114->118, goal correction is 4-6 in 24 hours -no need for hypertonic saline currently given patient's improvement in symptoms and already near goal correction after volume resuscitation -urine and serum osms pending -home diuretics, antipsychotics, blood pressure medications on hold, but will attempt to start resuming tomorrow -1500cc fluid restriction 2. Leukocytosis -etiology not clear -has diarrhea, but otherwise no infectious symptoms -lactate initially 2.7 but now improved to 1.5 -given levofloxacin in ED, but will hold antibiotics for now 3. LC, acute - baseline creatinine approximately 0.4-0.5 - on admission 3.84 - renal ultrasound shows no acute obstruction or hydronephrosis - likely prerental from diarrhea and diuretics - creatinine improved to 2.92 with volume resuscitation 4. Hypothyroidism -continue cytomel -switch synthroid to IV for now given vomiting 5. EtOH cirrhosis with known varices -hold nadolol for now given hypotension -hold lasix and aldactone 6. Bipolar disorder -hold saphris for now 7. Depression -hold sertraline for now 8. Type 2 Diabetes -hold metformin -ordered for low dose insulin sliding scale 9. Presume hypertension -hold lisinopril Code: Full, proxy is Vitor IVF: as needed for hypotension DVT ppx: heparin Quality VTE Deep Vein Thrombosis/Pulmonary Embolism Present on Admission: No MIPS - Admit I confirm the patient?s Advance Care Plan is present, Code status is documented, Surrogate decision maker is in patient?s record [If Yes, STOP here]: Yes
[2020-10-13 22:05] LABS: Magnesium 2.2 mg/dL (1.6-2.3)
[2020-10-13 22:06] LABS: BUN Creatinine Ratio 11.7 (6-22); Blood Urea Nitrogen 35 mg/dL (7-17); Calcium 6.7 mg/dL (8.4-10.2); Carbon Dioxide 23 mmol/L (22-32); Chloride 87 mmol/L (98-107); Estimated Glomerular Filt Rate 16.8 mL/min (>60); Glucose 113 mg/dL (70-100); HEMOLYSIS < 15 (0-50); Potassium 3.6 mmol/L (3.4-5.1); Sodium 120 mmol/L (137-145)
[2020-10-14 02:03] LABS: BUN Creatinine Ratio 13.4 (6-22); Blood Urea Nitrogen 38 mg/dL (7-17); Calcium 6.7 mg/dL (8.4-10.2); Carbon Dioxide 24 mmol/L (22-32); Chloride 89 mmol/L (98-107); Estimated Glomerular Filt Rate 17.7 mL/min (>60); Glucose 93 mg/dL (70-100); HEMOLYSIS < 15 (0-50); Potassium 3.4 mmol/L (3.4-5.1); Sodium 121 mmol/L (137-145)
[2020-10-14 04:30] VITALS: BP 99/51; PULSE 57; RESP 20; TEMP 36.2; O2SAT 96
[2020-10-14] MEDS: LIOTHYRONINE 5 MCG TABLET 10 MCG PO (05:52)
[2020-10-14 06:17] LABS: Add Manual Diff / Slide Review NO; Basophils Absolute Auto 100 /uL (0-100); Basophils Percent Auto 1.2 % (0-2); Eosinophils Absolute Auto 100 /uL (0-450); Eosinophils Percent Auto 1.1 % (2-4); Hematocrit 28.4 % (36-46); Hemoglobin 9.9 g/dL (12.0-16.0); Lymphocytes Absolute Auto 1600 /uL (1100-4500); Lymphocytes Percent Auto 26.9 % (25-40); Mean Corpuscular HGB Conc 34.8 % (30-36); Mean Corpuscular Hemoglobin 27.3 PG (26-34); Mean Corpuscular Volume 78.5 fL (80-100); Monocytes Absolute Auto 500 /uL (0-900); Monocytes Percent Auto 8.6 % (3-14); Neutrophils Absolute Auto 3600 /uL (1500-7000); Neutrophils Percent Auto 62.2 % (50-75); Platelet Count 158 X10^3/uL (150-400); Red Blood Cell Count 3.62 X10^6/uL (4.0-5.2); Red Cell Distribution Width 13.6 % (11.6-14.8); White Blood Cell Count 5.8 X10^3/uL (4.5-11.0)
[2020-10-14 06:28] LABS: Phosphorous 3.6 mg/dL (2.5-4.5)
[2020-10-14 06:29] LABS: Alanine Aminotransferase 17 IU/L (<35); Albumin 3.2 g/dL (3.5-5.0); Albumin Globulin Ratio 1.1 (1.0-2.8); Alkaline Phosphatase 75 U/L (38-126); Aspartate Aminotransferase 22 IU/L (14-36); BUN Creatinine Ratio 12.3 (6-22); Bilirubin Total 0.2 mg/dL (0.2-1.3); Blood Urea Nitrogen 35 mg/dL (7-17); Calcium 6.8 mg/dL (8.4-10.2); Carbon Dioxide 25 mmol/L (22-32); Chloride 90 mmol/L (98-107); Estimated Glomerular Filt Rate 17.7 mL/min (>60); Globulin 2.9 g/dL (1.7-4.1); Glucose 121 mg/dL (70-100); HEMOLYSIS < 15 (0-50); Potassium 3.5 mmol/L (3.4-5.1); Sodium 124 mmol/L (137-145); Total Protein 6.1 g/dL (6.3-8.2)
[2020-10-14 06:30] LABS: INR 1.2 (0.9-1.3); Prothrombin Time 13.8 SECONDS (10.1-12.7)
[2020-10-14 06:38] LABS: NT-proBNP (BNP-Adult 18+) 5300 pg/mL (<125)
[2020-10-14 07:56] VITALS: BP 90/52; PULSE 50; RESP 16; TEMP 36.5; O2SAT 98
[2020-10-14] MEDS: DEXTROSE 5% WATER 1,000 ML 50 ML IV (08:15)
[2020-10-14] MEDS: CALCIUM GLUCONATE 4.65 MEQ in SODIUM CHLORIDE 0.9% 50 ML 180 ML IV (08:16)
[2020-10-14] MEDS: ASPIRIN EC 81 MG TABLET PO (08:16)
[2020-10-14] MEDS: HEPARIN 5,000 UNIT/ML VIAL 5000 UNIT SUBCUT ×2 (08:16→21:02)
[2020-10-14] MEDS: INSULIN LISPRO 100 UNIT/ML 3ML VIAL SUBCUT ×3 (08:17→16:19)
[2020-10-14] MEDS: SODIUM CHLORIDE 0.9% FLUSH 10 ML IV ×2 (08:21→21:02)
[2020-10-14 12:00] VITALS: BP 96/49; PULSE 52; RESP 16; TEMP 36.6; O2SAT 98
[2020-10-14 12:55] LABS: BUN Creatinine Ratio 13.2 (6-22); Blood Urea Nitrogen 34 mg/dL (7-17); Carbon Dioxide 27 mmol/L (22-32); Chloride 91 mmol/L (98-107); Estimated Glomerular Filt Rate 19.9 mL/min (>60); Glucose 178 mg/dL (70-100); HEMOLYSIS < 15 (0-50); Sodium 126 mmol/L (137-145)
[2020-10-14] MEDS: LEVOTHYROXINE INJ 100 MCG/5 ML VIAL IV (14:49)
--- NOTE | 2020-10-14 16:05 | PM.PN.1 ---
Subjective Subjective Date Patient Seen: 10/14/20 Time Patient Seen: 08:06 Interval history: Today she thinks her confusion is much improved. She did have trouble sleeping overnight due to noises from the hospital and some of her home medications being held. Exam Vital Signs (past 8 hours): - 10/14/20 12:00 Temperature 97.9 F Pulse Rate 52 L Respiratory Rate 16 Blood Pressure 96/49 L Pulse Oximetry 98 Oxygen Delivery Method Room Air Oxygen Flow Rate 0 Narrative Exam Narrative: GEN: no acute distress HEENT: moist mucous membranes, PERRL NECK: no JVD, trachea midline CV: regular rate and rhythm, no mumurs PULM: clear bilaterally EXT: warm and well perfused with no edema SKIN: no rashes NEURO: awake and alert, no focal deficits PSYCH: pleasant and cooperative Objective Labs Result Diagrams: 10/14/20 06:08 10/14/20 12:30 Labs: Laboratory Results - last 24 hr 10/13/20 10/13/20 10/13/20 12:15 17:20 21:21 WBC RBC Hgb Hct MCV MCH MCHC RDW Plt Count Neut % (Auto) Lymph % (Auto) [place] % (Auto) Eos % (Auto) Baso % (Auto) Neut # (Auto) Lymph # (Auto) [place] # (Auto) Eos # (Auto) Baso # (Auto) PT INR Sodium 115 L* 118 L* 120 L Potassium 3.2 L 3.6 3.6 Chloride 82 L 86 L 87 L Carbon Dioxide 18 L 23 23 BUN 37 H 35 H 35 H Creatinine 3.19 H 2.92 H 2.98 H Estimated GFR 15.5 L 17.2 L 16.8 L BUN/Creatinine Ratio 11.6 12.0 11.7 Glucose 108 H 107 H 113 H Calcium 7.3 L 6.7 L 6.7 L Phosphorus Magnesium Total Bilirubin AST ALT Alkaline Phosphatase NT-Pro-B Natriuret Pep Total Protein Albumin Globulin Albumin/Globulin Ratio 10/13/20 10/14/20 10/14/20 21:21 01:48 06:08 WBC 5.8 D RBC 3.62 L Hgb 9.9 L Hct 28.4 L MCV 78.5 L MCH 27.3 MCHC 34.8 RDW 13.6 Plt Count 158 Neut % (Auto) 62.2 Lymph % (Auto) 26.9 [place] % (Auto) 8.6 Eos % (Auto) 1.1 L Baso % (Auto) 1.2 Neut # (Auto) 3600 Lymph # (Auto) 1600 [place] # (Auto) 500 Eos # (Auto) 100 Baso # (Auto) 100 PT INR Sodium 121 L Potassium 3.4 Chloride 89 L Carbon Dioxide 24 BUN 38 H Creatinine 2.84 H Estimated GFR 17.7 L BUN/Creatinine Ratio 13.4 Glucose 93 Calcium 6.7 L Phosphorus Magnesium 2.2 Total Bilirubin AST ALT Alkaline Phosphatase NT-Pro-B Natriuret Pep Total Protein Albumin Globulin Albumin/Globulin Ratio 10/14/20 10/14/20 10/14/20 06:08 06:08 06:08 WBC RBC Hgb Hct MCV MCH MCHC RDW Plt Count Neut % (Auto) Lymph % (Auto) [place] % (Auto) Eos % (Auto) Baso % (Auto) Neut # (Auto) Lymph # (Auto) [place] # (Auto) Eos # (Auto) Baso # (Auto) PT 13.8 H INR 1.2 Sodium 124 L Potassium 3.5 Chloride 90 L Carbon Dioxide 25 BUN 35 H Creatinine 2.85 H Estimated GFR 17.7 L BUN/Creatinine Ratio 12.3 Glucose 121 H Calcium 6.8 L Phosphorus 3.6 D Magnesium 2.0 Total Bilirubin 0.2 AST 22 ALT 17 Alkaline Phosphatase 75 NT-Pro-B Natriuret Pep 5300 H Total Protein 6.1 L Albumin 3.2 L Globulin 2.9 Albumin/Globulin Ratio 1.1 10/14/20 12:30 WBC RBC Hgb Hct MCV MCH MCHC RDW Plt Count Neut % (Auto) Lymph % (Auto) [place] % (Auto) Eos % (Auto) Baso % (Auto) Neut # (Auto) Lymph # (Auto) [place] # (Auto) Eos # (Auto) Baso # (Auto) PT INR Sodium 126 L Potassium 4.0 Chloride 91 L Carbon Dioxide 27 BUN 34 H Creatinine 2.57 H Estimated GFR 19.9 L BUN/Creatinine Ratio 13.2 Glucose 178 H Calcium 8.0 L Phosphorus Magnesium Total Bilirubin AST ALT Alkaline Phosphatase NT-Pro-B Natriuret Pep Total Protein Albumin Globulin Albumin/Globulin Ratio [facility] Medical History Anxiety Avascular necrosis Chicken pox Chlamydia (~1988) Cirrhosis Colon polyp COPD (chronic obstructive pulmonary disease) Depression Esophageal varices Esophageal web Hayfever Hemorrhoids Hypothyroidism (1997) Irregular periods/menstrual cycles MRSA infection Pancytopenia Papillary adenocarcinoma of thyroid Seizures Shoulder pain Substance abuse Surgical History Anesthesia complication History of adenoidectomy History of bunionectomy History of dilation and curettage History of esophageal surgery (2016) History of left hip replacement (08/2017) History of placement of ear tubes History of right hip replacement (11/2017) History of tonsillectomy History of total thyroidectomy (1997) Family History Father No problems noted. Mother Depression Hyperlipidemia Thyroid disorder Mental health problem Brother No problems noted. Grandfather Lung cancer Cancer Grandmother Thyroid disorder Potassium disorder Hyperlipidemia Hypertension Grandfather No problems noted. Grandmother No problems noted. Family/Other No problems noted. Social History household members: significant other Smoking Status: Former smoker alcohol intake: former substance use type: does not use eating out: rarely or never Type(s) of exercise: none Assessment & Plan Assessment & Plan narrative: Ms. Burch is 50W who presents with symptomatic hyponatremia 1. Hypovolemic hyponatremia with hypotension -overall clinical picture is consistent with hypovolemia from GI losses with vomiting and diarrhea -patient has elevated creatinine likely from prerenal hypovolemia -is also on diuretics at home which likely worsened hyponatremia as she continued taking them despite GI symptoms -has history of hypothyroidism, TSH low, but free t4 normal so less likely to be a cause -she also has psych history and has been drinking lots of water which could contribute -initially she needed volume resuscitation for hypotension with blood pressure as low as 70s -now that blood pressure improved have stopped normal saline -Na from 114->124 in 24 hours which was greater than goal -likely this is due to volume resuscitation to get patient's blood pressure up to safe level, and now she has been diuresing with improving kidney function -no need for hypertonic saline currently given patient's improvement in symptoms and already near goal correction after volume resuscitation -urine and serum osms pending -restart antipsychotics, blood pressure medications on hold, but will attempt to start resuming tomorrow -3000cc fluid restriction 2. Leukocytosis, resolved -etiology likely from stress and hypovolemic -had diarrhea prior to admission but none here -lactate initially 2.7 but now improved to 1.5 -given levofloxacin in ED, but will hold antibiotics for now 3. LC, acute - baseline creatinine approximately 0.4-0.5 - on admission 3.84 - renal ultrasound shows no acute obstruction or hydronephrosis - likely prerental from diarrhea and diuretics - creatinine improved to 2.57 with volume resuscitation 4. Hypothyroidism -continue cytomel -switch synthroid to IV for now given vomiting 5. EtOH cirrhosis with known varices -hold nadolol for now given hypotension -hold lasix and aldactone 6. Bipolar disorder -restart saphris 7. Depression -restart sertraline 8. Type 2 Diabetes -hold metformin -ordered for low dose insulin sliding scale 9. Presume hypertension -hold lisinopril Code: Full, proxy is Vitor IVF: as needed for hypotension DVT ppx: heparin Quality VTE Deep Vein Thrombosis/Pulmonary Embolism Present on Admission: No
[2020-10-14 16:21] VITALS: BP 87/51; PULSE 52; RESP 22; TEMP 36.4; O2SAT 97
[2020-10-14 16:37] LABS: Sodium 125 mmol/L (137-145)
--- NOTE | 2020-10-14 17:30 | CM.DANOTE ---
DCP ASSESSMENT: Patient is a 50 year-old female admitted for hypovolemic hyponatremia. PCP is Miguel Ángel Leary. Primary payer is [facility] and Medicaid. STUDENT ASSISTANCE COUNSELOR Student met with patient at bedside she was alert and oriented. Patient reported at base-line she requires assistance with bathing either from her life partner Vitor or from her mother. DME/AE owned shower chair and walk-in shower for ambulation she uses a FWW and scooter. Vitor has been providing transportation for her for the last few weeks prior to that she was driving. Patient reported she feels comfortable with discharging home with Vitor and feels she is at her baseline with physical ability. Her mother lives near her and is a support. Consulted with nursing who reported she is ambulating independently to the bathroom and at other times she needs some assistance to the bedside commode and utilizes walker infrequently. PLAN: Anticipate discharge home when medically stable. CM Team to continue to follow. BEATRICE Hale MSW Student Discharge Planning/Care Management CM Discharge Assessment Start: 10/14/20 12:21 Freq: Status: Active Protocol: Document 10/14/20 12:22 AL (Rec: 10/14/20 12:25 AL [id number]) Discharge Planning Assessment Assigned Power Chisel Operator BEATRICE Parra Student Contact Information Vitor Lopez, Life Partner Advance Directives? No History Provided By Patient,Medical Record Prior Living Arrangements House Household Members significant other Type of transporation used prior to Relies on Others admit Comment Has driven in the past but, recently she quit driving Independent with ADL's No Is patient alert and oriented? Yes Needs Assistance With Bathing,Meal Prep,Home Chores / Shopping Comment She reports only showering x1 everyother week when her significant others can help. Caregiver for Another No DME Already Rented / Owned Bath Bench,FWW / Walker Comment She has a walkin shower Comment Will provide patient with information about [facility] Barriers to Discharge No Discharge Plan Home Transportation Arrangement Family or significant other can provide transport home. Whiteboard Updated in Patient Room with Yes name and ext. # of Power Chisel Operator Review Status In Process
[2020-10-14] MEDS: DEXTROSE 5% WATER 1,000 ML 150 ML IV (18:16)
[2020-10-14 18:26] LABS: Sodium 126 mmol/L (137-145)
[2020-10-14 19:57] VITALS: BP 92/55; PULSE 53; RESP 17; TEMP 36.3; O2SAT 98
[2020-10-14 20:31] LABS: Sodium 125 mmol/L (137-145)
[2020-10-14] MEDS: Asenapine Maleate [Saphris] 5 mg tablet, sublingual 10 EACH SL (21:02)
[2020-10-14] MEDS: PRAVASTATIN 20 MG TABLET PO (21:02)
[2020-10-14 22:15] LABS: Sodium 125 mmol/L (137-145)
[2020-10-14 23:30] VITALS: BP 94/50; PULSE 54; RESP 18; TEMP 36.2; O2SAT 97
--- NOTE | 2020-10-15 00:56 | PC.NURSE ---
patient is alert and oriented. [place] sounds CTA with RA sat of 97%. HRR but bradycardic in 50's; telemetry reading was SB w/1st degree AVB. BP trending low and is currently 94/50 but denies dizziness or lightheadedness. Denies nausea. BT present and abdomen is soft; no diarrhea. Denies dysuria, frequency or urgency with urination. Is able to turn herself in bed. Up to BSC independently but for anything more than that she requires walker and 1 assist; has chronic right foot drop/weakness. Continues on fluid restriction. Denies pain. Declines to wear SCD's so reminded to ankle wave when awake. Is on contact isolation as is MRSA + in nares. Fall risk score is moderate.
[2020-10-15] MEDS: DEXTROSE 5% WATER 1,000 ML 150 ML IV (01:33)
[2020-10-15] MEDS: SODIUM CHLORIDE 0.9% FLUSH 10 ML IV ×3 (04:32→21:24)
[2020-10-15 04:36] VITALS: BP 94/51; PULSE 50; RESP 13; TEMP 36.6; O2SAT 98
[2020-10-15 04:48] LABS: Add Manual Diff / Slide Review NO; Basophils Absolute Auto 100 /uL (0-100); Basophils Percent Auto 1.3 % (0-2); Eosinophils Absolute Auto 100 /uL (0-450); Eosinophils Percent Auto 1.7 % (2-4); Hemoglobin 10.2 g/dL (12.0-16.0); Lymphocytes Absolute Auto 2000 /uL (1100-4500); Lymphocytes Percent Auto 31.9 % (25-40); Mean Corpuscular HGB Conc 34.1 % (30-36); Mean Corpuscular Volume 79.2 fL (80-100); Monocytes Absolute Auto 400 /uL (0-900); Monocytes Percent Auto 5.8 % (3-14); Neutrophils Absolute Auto 3800 /uL (1500-7000); Neutrophils Percent Auto 59.3 % (50-75); Platelet Count 194 X10^3/uL (150-400); Red Blood Cell Count 3.79 X10^6/uL (4.0-5.2); Red Cell Distribution Width 13.4 % (11.6-14.8); White Blood Cell Count 6.3 X10^3/uL (4.5-11.0)
[2020-10-15 04:56] LABS: BUN Creatinine Ratio 13.1 (6-22); Blood Urea Nitrogen 26 mg/dL (7-17); Calcium 7.8 mg/dL (8.4-10.2); Carbon Dioxide 28 mmol/L (22-32); Chloride 89 mmol/L (98-107); Estimated Glomerular Filt Rate 26.7 mL/min (>60); Glucose 210 mg/dL (70-100); HEMOLYSIS < 15 (0-50); Potassium 3.3 mmol/L (3.4-5.1); Sodium 126 mmol/L (137-145)
[2020-10-15] MEDS: LIOTHYRONINE 5 MCG TABLET 10 MCG PO (06:23)
[2020-10-15] MEDS: LEVOTHYROXINE 100 MCG TABLET 200 MCG PO (06:24)
[2020-10-15] MEDS: PANTOPRAZOLE DR 20 MG TABLET PO (06:26)
[2020-10-15] MEDS: POTASSIUM CHLORIDE IN WATER 10 MEQ/100 ML PIGGYBACK 100 MEQ IV ×2 (06:58→08:02)
[2020-10-15 08:00] VITALS: BP 106/58; PULSE 55; RESP 16; TEMP 36.1; O2SAT 99
[2020-10-15] MEDS: HEPARIN 5,000 UNIT/ML VIAL 5000 UNIT SUBCUT ×2 (08:00→21:23)
[2020-10-15] MEDS: ASPIRIN EC 81 MG TABLET PO (08:00)
[2020-10-15] MEDS: INSULIN LISPRO 100 UNIT/ML 3ML VIAL SUBCUT ×3 (08:02→16:57)
[2020-10-15] MEDS: SERTRALINE 50 MG TABLET PO (08:04)
[2020-10-15] MEDS: POTASSIUM CHLORIDE 20 MEQ TAB 40 MEQ PO (09:45)
[2020-10-15 11:42] VITALS: BP 103/55; PULSE 68; RESP 16; TEMP 36.3; O2SAT 98
[2020-10-15 12:08] LABS: BUN Creatinine Ratio 14.2 (6-22); Blood Urea Nitrogen 24 mg/dL (7-17); Calcium 8.5 mg/dL (8.4-10.2); Carbon Dioxide 28 mmol/L (22-32); Chloride 92 mmol/L (98-107); Estimated Glomerular Filt Rate 32.3 mL/min (>60); Glucose 158 mg/dL (70-100); HEMOLYSIS < 15 (0-50); Magnesium 1.5 mg/dL (1.6-2.3); Potassium 4.5 mmol/L (3.4-5.1); Sodium 129 mmol/L (137-145)
--- NOTE | 2020-10-15 12:38 | P.PN_ITS ---
Subjective Subjective Date Patient Seen: 10/15/20 Time Patient Seen: 07:38 Interval history: Today she is feeling much better. Does not feel quite back to her baseline, but she's not able to say in what way she doesn't feel well. Exam Vital Signs (past 8 hours): - 10/15/20 08:00 10/15/20 11:42 Temperature 96.9 F L 97.3 F L Pulse Rate 55 L 68 Respiratory Rate 16 16 Blood Pressure 106/58 L 103/55 L Pulse Oximetry 99 98 Oxygen Delivery Method Room Air Oxygen Flow Rate 0 Narrative Exam Narrative: GEN: no acute distress HEENT: moist mucous membranes, PERRL NECK: no JVD, trachea midline CV: regular rate and rhythm, no mumurs PULM: clear bilaterally EXT: warm and well perfused with no edema SKIN: no rashes NEURO: awake and alert, no focal deficits PSYCH: pleasant and cooperative Objective Labs Result Diagrams: 10/15/20 04:32 10/15/20 11:45 Labs: Laboratory Results - last 24 hr 10/14/20 10/14/20 10/14/20 12:30 16:05 18:00 WBC RBC Hgb Hct MCV MCH MCHC RDW Plt Count Neut % (Auto) Lymph % (Auto) [place] % (Auto) Eos % (Auto) Baso % (Auto) Neut # (Auto) Lymph # (Auto) [place] # (Auto) Eos # (Auto) Baso # (Auto) Sodium 126 L 125 L 126 L Potassium 4.0 Chloride 91 L Carbon Dioxide 27 BUN 34 H Creatinine 2.57 H Estimated GFR 19.9 L BUN/Creatinine Ratio 13.2 Glucose 178 H Calcium 8.0 L Magnesium 10/14/20 10/14/20 10/15/20 20:10 22:00 04:32 WBC 6.3 RBC 3.79 L Hgb 10.2 L Hct 30.0 L MCV 79.2 L MCH 27.0 MCHC 34.1 RDW 13.4 Plt Count 194 Neut % (Auto) 59.3 Lymph % (Auto) 31.9 [place] % (Auto) 5.8 Eos % (Auto) 1.7 L Baso % (Auto) 1.3 Neut # (Auto) 3800 Lymph # (Auto) 2000 [place] # (Auto) 400 Eos # (Auto) 100 Baso # (Auto) 100 Sodium 125 L 125 L Potassium Chloride Carbon Dioxide BUN Creatinine Estimated GFR BUN/Creatinine Ratio Glucose Calcium Magnesium 10/15/20 10/15/20 04:32 11:45 WBC RBC Hgb Hct MCV MCH MCHC RDW Plt Count Neut % (Auto) Lymph % (Auto) [place] % (Auto) Eos % (Auto) Baso % (Auto) Neut # (Auto) Lymph # (Auto) [place] # (Auto) Eos # (Auto) Baso # (Auto) Sodium 126 L 129 L Potassium 3.3 L 4.5 D Chloride 89 L 92 L Carbon Dioxide 28 28 BUN 26 H 24 H Creatinine 1.99 H 1.69 H Estimated GFR 26.7 L 32.3 L BUN/Creatinine Ratio 13.1 14.2 Glucose 210 H 158 H Calcium 7.8 L 8.5 Magnesium 1.5 L PFSH Medical History Anxiety Avascular necrosis Chicken pox Chlamydia (~1988) Cirrhosis Colon polyp COPD (chronic obstructive pulmonary disease) Depression Esophageal varices Esophageal web Hayfever Hemorrhoids Hypothyroidism (1997) Irregular periods/menstrual cycles MRSA infection Pancytopenia Papillary adenocarcinoma of thyroid Seizures Shoulder pain Substance abuse Surgical History Anesthesia complication History of adenoidectomy History of bunionectomy History of dilation and curettage History of esophageal surgery (2016) History of left hip replacement (08/2017) History of placement of ear tubes History of right hip replacement (11/2017) History of tonsillectomy History of total thyroidectomy (1997) Family History Father No problems noted. Mother Depression Hyperlipidemia Thyroid disorder Mental health problem Brother No problems noted. Grandfather Lung cancer Cancer Grandmother Thyroid disorder Potassium disorder Hyperlipidemia Hypertension Grandfather No problems noted. Grandmother No problems noted. Family/Other No problems noted. Social History household members: significant other Smoking Status: Former smoker alcohol intake: former substance use type: does not use eating out: rarely or never Type(s) of exercise: none Assessment & Plan Assessment & Plan narrative: Ms. Burch is 50W who presents with symptomatic hyponatremia 1. Hypovolemic hyponatremia with hypotension -overall clinical picture is consistent with hypovolemia from GI losses with vomiting and diarrhea -patient has elevated creatinine likely from prerenal hypovolemia -is also on diuretics at home which likely worsened hyponatremia as she continued taking them despite GI symptoms -has history of hypothyroidism, TSH low, but free t4 normal so less likely to be a cause -she also has psych history and has been drinking lots of water which could contribute -initially she needed volume resuscitation for hypotension with blood pressure as low as 70s -now that blood pressure improved have stopped normal saline -Na from 114->124 in first 24 hours which was greater than goal -likely this is due to volume resuscitation to get patient's blood pressure up to safe level, and now she has been diuresing with improving kidney function -she was started on d5w which slowed her increase in the next 24 hours went from 124->126 -no need for hypertonic saline currently given patient's improvement in symptoms and already near goal correction after volume resuscitation -urine and serum osms pending -restart antipsychotics, blood pressure medications on hold, but will resume when blood pressures improved -3000cc fluid restriction 2. Leukocytosis, resolved -etiology likely from stress and hypovolemic -had diarrhea prior to admission but none here -lactate initially 2.7 but now improved to 1.5 -given levofloxacin in ED, but will hold antibiotics for now 3. LC, acute - baseline creatinine approximately 0.4-0.5 - on admission 3.84 - renal ultrasound shows no acute obstruction or hydronephrosis - likely prerental from diarrhea and diuretics - creatinine improved to 1.9 with volume resuscitation 4. Hypothyroidism -continue cytomel -switch synthroid to to PO as taking good oral intake 5. EtOH cirrhosis with known varices -hold nadolol for now given hypotension -hold lasix and aldactone 6. Bipolar disorder -restart saphris 7. Depression -restart sertraline 8. Type 2 Diabetes -hold metformin -ordered for low dose insulin sliding scale 9. Presume hypertension -hold lisinopril Code: Full, proxy is Vitor IVF: as needed for hypotension DVT ppx: heparin Quality VTE Deep Vein Thrombosis/Pulmonary Embolism Present on Admission: No
[2020-10-15] MEDS: MAGNESIUM SULFATE 2 GM/50 ML PIGGYBACK IV (13:36)
[2020-10-15] MEDS: DEXTROSE 5% WATER 1,000 ML 75 ML IV (13:37)
[2020-10-15 16:00] VITALS: BP 111/58; PULSE 53; RESP 16; TEMP 36.1; O2SAT 97
[2020-10-15 16:10] LABS: Osmolality, Serum 254 mOsmol/kg (275-295)
[2020-10-15 16:10] LABS: Osmolality Urine 192 mOsmol/kg (.)
[2020-10-15 20:25] VITALS: BP 112/66; PULSE 53; RESP 17; TEMP 36.3; O2SAT 98
[2020-10-15 21:01] LABS: BUN Creatinine Ratio 13.5 (6-22); Blood Urea Nitrogen 21 mg/dL (7-17); Calcium 8.4 mg/dL (8.4-10.2); Carbon Dioxide 27 mmol/L (22-32); Chloride 92 mmol/L (98-107); Estimated Glomerular Filt Rate 35.7 mL/min (>60); Glucose 166 mg/dL (70-100); HEMOLYSIS < 15 (0-50); Potassium 3.9 mmol/L (3.4-5.1); Sodium 129 mmol/L (137-145)
[2020-10-15] MEDS: PRAVASTATIN 20 MG TABLET PO (21:24)
[2020-10-15] MEDS: Asenapine Maleate [Saphris] 5 mg tablet, sublingual 10 EACH SL (22:02)
[2020-10-16 00:50] VITALS: BP 120/67; PULSE 58; RESP 18; TEMP 36.6; O2SAT 97
--- NOTE | 2020-10-16 02:22 | PC.NURSE ---
patient is alert and oriented but irritable with being awakened for vitals/assessment. Breath sounds CTA with RA sat of 97%. HRR but bradycardic with rate in 50's; telemetry reading was SR w/BBB. Denies nausea. BT present and abdomen is soft. Denies dysuria, frequency or urgency with urination and is getting up to BSC independently. Denies pain. Continues to refuse SCD's so reminded to ankle wave and verbalizes understanding. Gait not assessed but reports right foot drop/weakness which is chronic. [facility]. Fall risk score is moderate; calls for assistance appropriately. Continues on fluid restriction of 3000ml/24h.
[2020-10-16 04:00] VITALS: BP 119/65; PULSE 55; RESP 18; TEMP 36.6; O2SAT 98
[2020-10-16] MEDS: DEXTROSE 5% WATER 1,000 ML 75 ML IV (04:44)
[2020-10-16] MEDS: SODIUM CHLORIDE 0.9% FLUSH 10 ML IV ×2 (04:45→08:09)
[2020-10-16 05:11] LABS: Add Manual Diff / Slide Review NO; Basophils Absolute Auto 100 /uL (0-100); Basophils Percent Auto 0.9 % (0-2); Eosinophils Absolute Auto 100 /uL (0-450); Eosinophils Percent Auto 1.3 % (2-4); Hematocrit 31.8 % (36-46); Hemoglobin 10.7 g/dL (12.0-16.0); Lymphocytes Absolute Auto 2800 /uL (1100-4500); Mean Corpuscular HGB Conc 33.8 % (30-36); Mean Corpuscular Hemoglobin 26.8 PG (26-34); Mean Corpuscular Volume 79.5 fL (80-100); Monocytes Absolute Auto 500 /uL (0-900); Monocytes Percent Auto 5.8 % (3-14); Neutrophils Absolute Auto 5000 /uL (1500-7000); Platelet Count 239 X10^3/uL (150-400); Red Cell Distribution Width 13.6 % (11.6-14.8); White Blood Cell Count 8.4 X10^3/uL (4.5-11.0)
[2020-10-16] MEDS: LIOTHYRONINE 5 MCG TABLET 10 MCG PO (06:05)
[2020-10-16] MEDS: PANTOPRAZOLE DR 20 MG TABLET PO (06:05)
[2020-10-16] MEDS: LEVOTHYROXINE 100 MCG TABLET 200 MCG PO (06:05)
[2020-10-16 06:49] LABS: BUN Creatinine Ratio 14.8 (6-22); Blood Urea Nitrogen 20 mg/dL (7-17); Calcium 8.7 mg/dL (8.4-10.2); Carbon Dioxide 27 mmol/L (22-32); Chloride 93 mmol/L (98-107); Estimated Glomerular Filt Rate 41.9 mL/min (>60); Glucose 175 mg/dL (70-100); HEMOLYSIS < 15 (0-50); Potassium 3.9 mmol/L (3.4-5.1); Sodium 130 mmol/L (137-145)
[2020-10-16 08:00] VITALS: BP 115/84; PULSE 52; RESP 19; TEMP 36.3; O2SAT 97
[2020-10-16] MEDS: INSULIN LISPRO 100 UNIT/ML 3ML VIAL SUBCUT (08:08)
[2020-10-16] MEDS: SERTRALINE 50 MG TABLET PO (08:08)
[2020-10-16] MEDS: ASPIRIN EC 81 MG TABLET PO (08:08)
--- NOTE | 2020-10-16 08:11 | P.DS_ITS ---
History of Present Illness History of Present Illness Chief complaint: dizzy, nausea, vomiting md made med change Narrative: Ms. Burch is a 50W with PMH Type 2 DM, EtOH cirrhosis with esophageal varices s/p banding, etoh seizures, thyroid cancer s/p thyroidectomy, bipolar, depression who presented to the hospital with two weeks of nausea, vomiting, and diarrhea. She thinks her symptoms are related to her increasing dose of glipizide from 5 to 10mg daily. She has also noted dizziness. Otherwise, she has no new medications. No abdominal pain. No coughing, shortness of breath. No dysuria. She does note she drinks quite a bit of water and eats a significant amount of ice chips. She has been on diuretics at home, but does not think the doses have changed. She has noted her urine becoming darker recently, and less volume that she's urinating. In the ER workup was done, she was noted to have hypotension with systolic blood pressures in the 80s. Labs showed WBC of 14.4, hemoglobin 11.9, Na 114, k 3.2, creatinine 3.84, lactate 2.7, magnesium 1.0. UA showed no evidence of infection. She was ordered sepsis bolus of IV fluid and given IV levofloxacin and admitted for further treatment. Discharge Providers Provider Date of admission: 10/13/20 08:03 Discharge Date: 10/16/20 Primary care physician: Miguel Ángel Leary MD Consults: 10/13/20 09:54 Consult After Hours PICC Line RN Routine Comment: Discharge provider: Chirag Garcia MD Summary Hospital Course Discharge Diagnosis: 1. Severe hyponatremia, due to hypovolemia 2. LC 3. Hypothyroidism 4. history of Thyroid cancer s/p thyroidectomy 5. EtOH with known varices 6. Bipolar disorder 7. Depression 8. Type 2 diabetes 9. Hypertension Hospital Course: Ms. Burch was admitted initially with severe hyponatremia with sodium initially of 114. She was very dehydrated and hypovolemic and confused. She was on diuretics at home and had been vomiting and diarrhea and did not hold these medications. She also drinks lots of water daily. She had LC with admission creatinine of 3.84. Renal workup was consistent with prerenal etiology. She was initially hypotensive in the 70s-80s and therefore was initially attempted to be volume resuscitated given blood pressure. She did need d5w to slow the rate of correction of her sodium but she did rise 16meq over 3 days which is appropriate rise. On day of discharge her sodium was 130 and creatinine improved to 1.35. She will be discharged but recommended to hold spironolactone, glipizide, and lisinopril until being seen by her primary care doctor within the next week to give her body more time to continue to stabilize sodium and creatinine levels.l Exam Vital Signs (past 8 hours): Oxygen Delivery Method Room Air Oxygen Flow Rate 0 Narrative Exam Narrative: GEN: no acute distress HEENT: moist mucous membranes, PERRL NECK: no JVD, trachea midline CV: regular rate and rhythm, no mumurs PULM: clear bilaterally EXT: warm and well perfused with no edema SKIN: no rashes NEURO: awake and alert, no focal deficits PSYCH: pleasant and cooperative Objective Labs Result Diagrams: 10/16/20 04:43 10/16/20 04:43 [facility] Medical History Anxiety Avascular necrosis Chicken pox Chlamydia (~1988) Cirrhosis Colon polyp COPD (chronic obstructive pulmonary disease) Depression Esophageal varices Esophageal web Hayfever Hemorrhoids Hypothyroidism (1997) Irregular periods/menstrual cycles MRSA infection Pancytopenia Papillary adenocarcinoma of thyroid Seizures Shoulder pain Substance abuse Surgical History Anesthesia complication History of adenoidectomy History of bunionectomy History of dilation and curettage History of esophageal surgery (2016) History of left hip replacement (08/2017) History of placement of ear tubes History of right hip replacement (11/2017) History of tonsillectomy History of total thyroidectomy (1997) Family History Father No problems noted. Mother Depression Hyperlipidemia Thyroid disorder Mental health problem Brother No problems noted. Grandfather Lung cancer Cancer Grandmother Thyroid disorder Potassium disorder Hyperlipidemia Hypertension Grandfather No problems noted. Grandmother No problems noted. Family/Other No problems noted. Social History household members: significant other Smoking Status: Former smoker alcohol intake: former substance use type: does not use eating out: rarely or never Type(s) of exercise: none Discharge Plan Discharge Plan Patient Disposition: Home Provider Discharge Comment: Ms. Burch came in with nausea, vomiting, diarrhea and confusion. She was found to be very dehydrated. She had labs done that showed dangerously low sodium, and kidney injury. She was given fluids, and some of her medications were held and she improved. On day of discharge she was feeling much better. Her sodium and kidneys were almost completely back to normal. She should follow up with her doctor within one week. She should hold on taking her spironolactone, glipizide, and lisinopril until seeing her primary doctor and then if still doing well can likely restart those medications at that time. Discharge orders & Medications Prescriptions: Continued aspirin [Adult Low Dose Aspirin] 81 mg tablet,delayed release (DR/EC) 81 mg PO DAILY RF: 0 hydroxyzine HCl 50 mg tablet 50 mg PO TID PRN (Reason: anxiety) Qty: 90 RF: 5 levothyroxine 200 mcg tablet 200 mcg PO DAILY Qty: 90 RF: 3 (DME) blood-glucose meter [True Metrix Glucose Meter] Misc See Rx Instructions .ROUTE .MEDSUPPLY Qty: 1 RF: 0 (DME) True Metrix Glucose Test Strip Strip See Rx Instructions .ROUTE .MEDSUPPLY Qty: 400 RF: 3 (DME) lancets Misc See Rx Instructions .ROUTE .MEDSUPPLY Qty: 400 RF: 3 pravastatin 20 mg tablet 20 mg PO BEDTIME Qty: 90 RF: 3 nadolol 40 mg tablet 40 mg PO DAILY Qty: 90 RF: 3 omeprazole 20 mg capsule,delayed release(DR/EC) 20 mg PO DAILY Qty: 90 RF: 1 metformin 1,000 mg tablet 1,000 mg PO BID Qty: 180 RF: 0 liothyronine 5 mcg tablet 10 mcg PO DAILY Qty: 180 RF: 1 furosemide 40 mg tablet 40 mg PO DAILY Qty: 90 RF: 0 asenapine maleate [Saphris] 5 mg tablet, sublingual 10 mg sublingual BEDTIME RF: 0 sertraline 50 mg tablet 50 mg PO DAILY RF: 0 Discontinued spironolactone 50 mg tablet See Rx Instructions .ROUTE .COMPLEX Qty: 90 RF: 0 lisinopril 5 mg tablet 5 mg PO DAILY Qty: 90 RF: 3 glipizide 10 mg tablet extended release 24hr 10 mg PO DAILY Qty: 30 RF: 0 Complete Multivitamin Tablet 1 tab PO DAILY RF: 0 Follow up/Referrals: Miguel Ángel Leary MD [Primary Care Provider] - (Dr. Leary's office will call you to schedule this appt. ) Diet/Activity/Treatments Diet: Diet as Tolerated Visit Report/Discharge Packet Instructions: DI for Hyponatremia, DI for Acute Kidney Injury Discharge Data Primary Care Provider: Miguel Ángel Leary Quality VTE Deep Vein Thrombosis/Pulmonary Embolism Present on Admission: No MIPS - DC The patient has current or prior documentation of left ventricular ejection fraction (LVEF) less than 40%, or moderate or severely depressed left ventricular systolic function.: No
--- NOTE | 2020-10-16 11:57 | CM.DPC ---
DCP Discharge home Per MD, pt with stabilized sepsis and acute kidney injury and medically appropriate for d/c home today with no identified barriers to discharge. Per RN, pt is agreeable with d/c home today and no concerns and will call her mom for a ride home once discharge pwk complete. Pt lives at home with life partner and complex medical hx. Plan: Patient to d/c home today via mother POV and no further SW needs at this time. BEATRICE Rhodes
--- NOTE | 2020-10-16 13:21 | PC.NURSE ---
Provided dc packet/paperwork, educational materials. Reviewed contents. Provided education regarding dx, medications, side effects, diet, activity, need for f/u, when to seek emergency medical treatment. Pt verbalizes understanding of teaching. Home medications obtained from pharmacy and given to pt. All belongings gathered. Pt dressed herself and transferred into w/c independently. Was escorted to private vehicle driven by her mom for discharge. Pt was in no apparent distress. Left at 1310.
== END 2020-10-16 13:10 | disposition home or self-care (01) | DRG 422 ==
LOC: ED 05:41 → AC 08:04 → ICU 10-14 08:34 → AC 10-15 14:58 → ICU 10-16 07:49
PROVIDERS: Nurse Practitioner Family; Admitting Provider Internal Medicine; Emergency Provider Emergency Medicine; PCP Student in an Organized Health Care Education/Training Program; Referring Provider Emergency Medicine; Visit Provider Internal Medicine
DX: E87.1 Hypo-osmolality and hyponatremia (principal); N17.9 Acute kidney failure, unspecified; E86.1 Hypovolemia; I85.10 Secondary esophageal varices without bleeding; I95.9 Hypotension, unspecified; D72.829 Elevated white blood cell count, unspecified; Z20.822 Contact with and (suspected) exposure to COVID-19; E11.9 Type 2 diabetes mellitus without complications; Z79.84 Long term (current) use of oral hypoglycemic drugs; K70.30 Alcoholic cirrhosis of liver without ascites; E89.0 Postprocedural hypothyroidism; Z87.891 Personal history of nicotine dependence
CPT/HCPCS: 36415; 36569; 36592; 71045; 76770; 80048; 80053; 81001; 82570; 82805; 82962; 83605; 83735; 83880; 83930; 83935; 84100; 84295; 84300; 84439; 84443; 85025; 85610; 87040; 87635; 87797; 93005; 96361; 96365; 96366; 99284; C9803; J0610; J1642; J1644; J1650; J1815; J1956; J3475

== ENCOUNTER → 2020-10-19 12:58 | Outpatient (CLI) | payer OTHER, MEDICAID, SELFPAY ==
[2020-10-13 08:51] VITALS: BMI 38.7
[2020-10-19 14:57] LABS: BUN Creatinine Ratio 17.3 (6-22); Blood Urea Nitrogen 14 mg/dL (7-17); Calcium 8.9 mg/dL (8.4-10.2); Carbon Dioxide 26 mmol/L (22-32); Chloride 98 mmol/L (98-107); Estimated Glomerular Filt Rate > 60.0 mL/min (>60); Glucose 204 mg/dL (70-100); HEMOLYSIS < 15 (0-50); Potassium 4.3 mmol/L (3.4-5.1); Sodium 137 mmol/L (137-145)
== END ==
PROVIDERS: PCP Student in an Organized Health Care Education/Training Program; Referring Provider Student in an Organized Health Care Education/Training Program; Visit Provider Student in an Organized Health Care Education/Training Program
DX: E86.0 Dehydration (principal)
CPT/HCPCS: 36415; 80048

== ENCOUNTER → 2020-12-14 11:30 | Outpatient (CLI) | payer OTHER, MEDICAID, SELFPAY ==
[2020-10-13 08:51] VITALS: BMI 38.7
[2020-12-14 13:13] LABS: Hemoglobin A1C% w Est Avg Glu 7.5 % (4.0-6.0)
[2020-12-14 13:34] LABS: BUN Creatinine Ratio 19.6 (6-22); Blood Urea Nitrogen 9 mg/dL (7-17); Calcium 9.2 mg/dL (8.4-10.2); Chloride 85 mmol/L (98-107); Estimated Glomerular Filt Rate > 60.0 mL/min (>60); Glucose 233 mg/dL (70-100); HEMOLYSIS < 15 (0-50); Potassium 3.3 mmol/L (3.4-5.1); Sodium 137 mmol/L (137-145)
[2020-12-14 13:41] LABS: Carbon Dioxide 39 mmol/L (22-32)
== END ==
PROVIDERS: PCP Student in an Organized Health Care Education/Training Program; Referring Provider Student in an Organized Health Care Education/Training Program; Visit Provider Student in an Organized Health Care Education/Training Program
DX: E11.9 Type 2 diabetes mellitus without complications (principal); F10.21 Alcohol dependence, in remission; I10 Essential (primary) hypertension
CPT/HCPCS: 36415; 80048; 83036

== ENCOUNTER → 2020-12-24 12:42 | Outpatient (CLI) | payer OTHER, MEDICAID, SELFPAY ==
[2020-10-13 08:51] VITALS: BMI 38.7
--- NOTE | 2020-12-24 12:43 | DI.US.S_ITS ---
PROCEDURE: US PELVIC COMPLETE INDICATIONS: FOLLOW UP OVARIAN CYSTS AND THICKENED ENDOMETRIUM TECHNIQUE: Real-time scanning was performed of the pelvic organs, with image documentation. Additional endovaginal scanning was necessary due to incomplete visualization of the adnexal and endometrial structures by transabdominal scanning. COMPARISON: [facility], , US PELVIC COMPLETE, 04/23/2020, 12:52. FINDINGS: Uterus: Uterus is normal in size at 9.1 x 5.7 x 4.3 cm. The endometrium measures 9 mm in combined thickness. Ovaries: The right ovary measures 2.6 x 3 x 2.1 cm. The left ovary measures 2.7 x 2.4 x 1.9 cm. The ovaries have a normal sonographic appearance. Several follicles are seen that measure greater than 2 cm. No adnexal masses are seen. Other: No pathologic free abdominal or pelvic fluid. IMPRESSION: For a postmenopausal patient, she has a persistently thickened endometrial stripe, which is thicker than on the prior examination. Differential diagnosis includes endometrial neoplasm and endometrial hyperplasia. Recommend correlation with endometrial histology, if clinically appropriate. Several follicles are seen on each side, which measure greater than 2 cm, which are not regarded to be frankly pathologic. Dictated by: Irwin Mejia M.D. on 12/24/2020 at 12:40 Approved by: Irwin Mejia M.D. on 12/24/2020 at 12:45
== END ==
PROVIDERS: PCP Student in an Organized Health Care Education/Training Program; Referring Provider Specialist; Visit Provider Specialist
DX: N83.201 Unspecified ovarian cyst, right side (principal); N83.202 Unspecified ovarian cyst, left side; R93.89 Abnormal findings on diagnostic imaging of other specified body structures; Z09 Encounter for follow-up examination after completed treatment for conditions other than malignant neoplasm
CPT/HCPCS: 76830; 76856

== ENCOUNTER → 2021-02-26 10:38 | Outpatient (CLI) | payer OTHER, MEDICAID, SELFPAY ==
[2020-10-13 08:51] VITALS: BMI 38.7
--- NOTE | 2021-02-26 | DI.US.S_ITS ---
PROCEDURE: US ABDOMEN COMPLETE INDICATIONS: CIRRHOSIS; ESOPHAGEAL VARICES TECHNIQUE: Real-time scanning was performed of the abdominal and retroperitoneal organs, with image documentation. COMPARISON: Reference is made to the renal ultrasound dated October 13, 2020. FINDINGS: Liver: Increased echogenicity of the liver, compatible with hepatic steatosis. The liver measures 20.4 cm in length. 1.3 cm echogenic focus in the right hepatic lobe, likely reflecting a hemangioma. The portal vein is patent. Gallbladder: No gallbladder wall thickening or pericholecystic fluid. Gallstones are seen, measuring up to 2.9 mm. Biliary ducts: Intrahepatic bile ducts are non-dilated. Extrahepatic bile duct caliber measures 3.3 mm. Normal is 6-7 mm or less in diameter, or 10 mm or less post-cholecystectomy. Pancreas: Visualized portions of the pancreas are sonographically normal. Spleen: Spleen is normal in size and homogeneous in echotexture. Kidneys: Kidneys are normal in size and echotexture. Right kidney measures 11.2 cm long; left kidney measures 11.2 cm long. No hydronephrosis or nephrolithiasis. No solid masses. Aorta: Visualized aorta is normal in caliber at less than 3 cm. Iliacs: Proximal common iliac arteries are normal in caliber at less than 2.5 cm. IVC: Intrahepatic inferior vena cava is patent. Miscellaneous: No free abdominal fluid. IMPRESSION: 1. Cholelithiasis. 2. 1.3 cm echogenic focus in the right hepatic lobe, which may reflect a hemangioma. Dictated by: Guillermo Gann M.D. on 02/26/2021 at 15:02 Approved by: Guillermo Gann M.D. on 02/26/2021 at 15:06
== END ==
PROVIDERS: PCP Student in an Organized Health Care Education/Training Program; Referring Provider Internal Medicine Gastroenterology; Visit Provider Internal Medicine Gastroenterology
DX: K74.60 Unspecified cirrhosis of liver (principal); I85.00 Esophageal varices without bleeding; K80.20 Calculus of gallbladder without cholecystitis without obstruction
CPT/HCPCS: 76700

== ENCOUNTER 2021-02-27 19:01 | Emergency (ER) | payer OTHER, MEDICAID, SELFPAY ==
[2020-10-13 08:51] VITALS: BMI 38.7
[2021-02-27 19:06] VITALS: BP 119/71; PULSE 66; RESP 16; TEMP 36.3; O2SAT 97; BMI 33.3
--- NOTE | 2021-02-27 19:21 | ED.SKABFB ---
HPI - Skin/Abscess/Foreign Bdy General Chief complaint: Skin/Abscess/Foreign Body Stated complaint: rt sided facial swelling Time Seen by Provider: 02/27/21 19:21 Source: patient Mode of arrival: Ambulatory History of Present Illness HPI narrative: 50-year-old woman comes in with complaints of swelling at the angle of the jaw on the right side. No fevers, dental pain, sore throat, mouth pain or pain with salivation. She denies any recent trauma. Related Data Home Medications Medication Instructions Recorded Confirmed aspirin 81 mg tablet,delayed 81 mg PO DAILY 12/17/19 01/28/21 release (Adult Low Dose Aspirin) asenapine maleate 5 mg sublingual 10 mg SUBLINGUAL BEDTIME 10/13/20 01/28/21 tablet (Saphris) Previous Rx's Medication Instructions Recorded blood sugar diagnostic (True #400 each 03/07/20 Metrix Glucose Test Strip) blood-glucose meter (True Metrix #1 each 03/07/20 Glucose Meter) lancets #400 each 03/07/20 pravastatin 20 mg tablet 20 mg PO BEDTIME #90 tab 03/22/20 nadolol 40 mg tablet 40 mg PO DAILY #90 tab 05/15/20 liothyronine 5 mcg tablet 10 mcg PO DAILY #180 tab 08/22/20 sertraline 50 mg tablet 50 mg PO DAILY #90 tab 11/19/20 hydroxyzine HCl 50 mg tablet 50 mg PO TID PRN #90 tab 11/30/20 levothyroxine 200 mcg tablet 200 mcg PO DAILY #90 tab 12/10/20 metformin 1,000 mg tablet 1,000 mg PO BID #180 tab 12/19/20 omeprazole 20 mg capsule,delayed 20 mg PO DAILY #90 cap 12/19/20 release furosemide 40 mg tablet 40 mg PO DAILY #90 tab 02/23/21 clindamycin HCl 300 mg capsule 300 mg PO TID #21 cap 02/27/21 Allergies Allergy/AdvReac Type Severity Reaction Status Date / Time Penicillins [PENICILLINS] Allergy Unknown Verified 01/28/21 15:50 Sulfa (Sulfonamide Allergy Unknown Verified 01/28/21 15:50 Antibiotics) [SULFA (SULFONAMIDE ANTIBIOTICS)] sulfamethoxazole Allergy Verified 01/28/21 15:50 [From Bactrim] trimethoprim [From Bactrim] Allergy Verified 01/28/21 15:50 Review of Systems Review of Systems Narrative: Remainder of complete review of systems is otherwise unremarkable except for that included in the HPI. Patient History Medical History Anxiety Avascular necrosis of bone of hip Chicken pox Chlamydia (~1988) Cirrhosis Colon polyp COPD (chronic obstructive pulmonary disease) Depression Esophageal varices Esophageal web Hayfever Hemorrhoids Hypothyroidism (1997) Irregular periods/menstrual cycles MRSA infection Pancytopenia Papillary adenocarcinoma of thyroid Seizures Shoulder pain Substance abuse Surgical History Anesthesia complication History of adenoidectomy History of bunionectomy History of dilation and curettage History of esophageal surgery (2016) History of left hip replacement (08/2017) History of placement of ear tubes History of right hip replacement (11/2017) History of tonsillectomy History of total thyroidectomy (1997) Family History Father No problems noted. Mother Depression Hyperlipidemia Thyroid disorder Mental health problem Brother No problems noted. Grandfather Lung cancer Cancer Grandmother Thyroid disorder Potassium disorder Hyperlipidemia Hypertension Grandfather No problems noted. Grandmother No problems noted. Family/Other No problems noted. Social History household members: significant other Smoking Status: Former smoker alcohol intake: former substance use type: does not use eating out: rarely or never Type(s) of exercise: none Smoking Status: Former smoker alcohol intake frequency: 0-2 drinks per day Substance Use Type: marijuana Exam Narrative Exam Narrative: General: Alert appropriate in no acute distress HEENT: She has some minor swelling at the angle of jaw on the right side that is a enlarged sub mandibular lymph node. Dental exam reveals multiple broken teeth dental caries and an abscess fistula on the buccal side of tooth 29. Not currently draining. Respiratory: Able to speak in full sentences, no obvious respiratory distress Skin: No obvious rashes, warm and dry Neurologic: Grossly intact no obvious asymmetries or abnormalities Psych: appropriate insight and affect, cooperative Initial Vital Signs Initial Vital Signs: Vital Signs Temperature 97.4 F L 02/27/21 19:06 Pulse Rate 66 02/27/21 19:06 Respiratory Rate 16 02/27/21 19:06 Blood Pressure 119/71 02/27/21 19:06 Pulse Oximetry 97 02/27/21 19:06 Course Vital Signs Vital signs: Vital Signs - 8 hr 02/27/21 19:06 Temperature 97.4 F L Pulse Rate 66 Respiratory Rate 16 Blood Pressure 119/71 Pulse Oximetry 97 MDM - Skin/Abscess/Foreign Bdy MDM Narrative Medical decision making narrative: 50-year-old woman complains of swelling of the jaw that is a reactive lymph node secondary to chronic dental infection. She is scheduled for dental follow-up next week with anticipation of all teeth being pulled and being fitted for dentures. At this point she is not having any pain, no drainage no tenderness reassurance is given and she is safe for home discharge Discharge Plan Departure Patient Disposition: Home Clinical Impression: Dental abscess, Lymphadenopathy of right cervical region Instructions: DI for Tooth Decay Activity Restrictions/Additional Instructions: Thank you for coming in today You are correct that you do have a swelling under the angle of the jaw on the right side. This is a lymph node and it is performing the job it is supposed to do. It does look like that to just above this swollen area had an infection and there is a drainage site. I am going to put you on clindamycin 3 times a day for 7 days to help with this infection. Please keep your scheduled dental appointment. If you are getting worse, pleae return to the ER Prescriptions: New clindamycin HCl 300 mg capsule 300 mg PO TID Qty: 21 RF: 0 No Action aspirin [Adult Low Dose Aspirin] 81 mg tablet,delayed release (DR/EC) 81 mg PO DAILY RF: 0 (DME) blood-glucose meter [True Metrix Glucose Meter] Misc See Rx Instructions .ROUTE .MEDSUPPLY Qty: 1 RF: 0 (DME) True Metrix Glucose Test Strip Strip See Rx Instructions .ROUTE .MEDSUPPLY Qty: 400 RF: 3 (DME) lancets Misc See Rx Instructions .ROUTE .MEDSUPPLY Qty: 400 RF: 3 pravastatin 20 mg tablet 20 mg PO BEDTIME Qty: 90 RF: 3 nadolol 40 mg tablet 40 mg PO DAILY Qty: 90 RF: 3 liothyronine 5 mcg tablet 10 mcg PO DAILY Qty: 180 RF: 1 sertraline 50 mg tablet 50 mg PO DAILY Qty: 90 RF: 1 hydroxyzine HCl 50 mg tablet 50 mg PO TID PRN (Reason: anxiety) Qty: 90 RF: 1 levothyroxine 200 mcg tablet 200 mcg PO DAILY Qty: 90 RF: 3 metformin 1,000 mg tablet 1,000 mg PO BID Qty: 180 RF: 1 omeprazole 20 mg capsule,delayed release(DR/EC) 20 mg PO DAILY Qty: 90 RF: 1 furosemide 40 mg tablet 40 mg PO DAILY Qty: 90 RF: 1 asenapine maleate [Saphris] 5 mg tablet, sublingual 10 mg sublingual BEDTIME RF: 0 Referrals: Miguel Ángel Leary MD [Primary Care Provider] -
[2021-02-27 19:46] VITALS: BP 108/53; PULSE 64; O2SAT 96
== END 2021-02-27 19:48 | disposition home or self-care (01) ==
PROVIDERS: Emergency Provider Emergency Medicine; PCP Student in an Organized Health Care Education/Training Program
DX: K04.7 Periapical abscess without sinus (principal); R59.0 Localized enlarged lymph nodes
CPT/HCPCS: 99281

== ENCOUNTER → 2021-03-25 10:22 | Outpatient (CLI) | payer OTHER, MEDICAID, SELFPAY ==
[2020-10-13 08:51] VITALS: BMI 38.7
[2021-03-25 15:43] LABS: COVID19 -Nasal RAPID Negative (Negative)
== END ==
PROVIDERS: PCP Student in an Organized Health Care Education/Training Program; Referring Provider Physician Assistant; Visit Provider Physician Assistant
DX: Z01.812 Encounter for preprocedural laboratory examination (principal); Z20.822 Contact with and (suspected) exposure to COVID-19
CPT/HCPCS: 87635; C9803

== ENCOUNTER 2021-03-27 10:16 | Day surgery (SDC) | payer OTHER, MEDICAID, SELFPAY ==
[2020-10-13 08:51] VITALS: BMI 38.7
--- NOTE | 2021-03-27 | PATH_ITS ---
[facility] Accession Number: [id number] . 01 Material submitted: . gastrointestinal site - GASTRIC BIOPSY . 02 Diagnosis: Stomach, Biopsy: Gastric antral mucosa with mild chronic, focal active inflammation. Gastric body mucosa with no diagnostic abnormality. Negative for Helicobacter by immunohistochemistry. Negative for intestinal metaplasia. Negative for dysplasia or malignancy. MRV 04/01/2021 1209 Local . 02 Electronically signed: . Ronak Ibarra MD, PhD, Pathologist NPI- [id number] . 01 Gross description: . GASTRIC BIOPSY: Received in formalin are 2 fragment(s) of valladares, soft tissue measuring 0.2 x 0.2 x 0.2 cm to 0.3 x 0.2 x 0.2 cm submitted entirely in 1 cassette(s) /CHELA 03/28/2021 0200 Local . 02 Microscopic: . An immunohistochemical stain was performed to evaluate for Helicobacter organisms and is negative. The control stain showed appropriate reactivity. . * This test was developed and its performance characteristics determined by [facility]. It has not been cleared or approved by the U.S. Food and Drug Administration. The FDA has determined that such clearance or approval is not necessary. This test is used for clinical purposes. It should not be regarded as investigational or for research. . 02 Pathologist provided ICD-10: K29.70 . 02 CPT . 242430, Z31425 Performed at: 01 [facility] Cytology [address] [facility] [place], [place], [place] [id number] MD Aamir Trujillo MD Phone: [phone] Performed at: 02 [facility] [place] [address] [place], [place] [id number] MD Natalie Albright MD Phone: [phone]
[2021-03-27 10:36] VITALS: BP 112/69; PULSE 60; RESP 14; TEMP 36.4; O2SAT 97; BMI 33.8
--- NOTE | 2021-03-27 11:01 | PM.HP.1 ---
History of Present Illness History of Present Illness Date Patient Seen: 03/27/21 Chief complaint: SDC Narrative: History of esophageal varices need for follow-up and possible banding Patient History Medical History Anxiety Avascular necrosis of bone of hip Chicken pox Chlamydia (~1988) Cirrhosis Colon polyp COPD (chronic obstructive pulmonary disease) Depression Esophageal varices Esophageal web Hayfever Hemorrhoids Hypothyroidism (1997) Irregular periods/menstrual cycles MRSA infection Pancytopenia Papillary adenocarcinoma of thyroid Seizures Shoulder pain Substance abuse Surgical History Anesthesia complication History of adenoidectomy History of bunionectomy History of dilation and curettage History of esophageal surgery (2016) History of left hip replacement (08/2017) History of placement of ear tubes History of right hip replacement (11/2017) History of tonsillectomy History of total thyroidectomy (1997) Family & Social History Family History Father No problems noted. Mother Depression Hyperlipidemia Thyroid disorder Mental health problem Brother No problems noted. Grandfather Lung cancer Cancer Grandmother Thyroid disorder Potassium disorder Hyperlipidemia Hypertension Grandfather No problems noted. Grandmother No problems noted. Family/Other No problems noted. Social History: household members significant other Tobacco & Substance use: Smoking Status Former smoker alcohol intake former alcohol intake frequency 0-2 drinks per day Substance Use Type marijuana Meds Home Medications and Allergies Home Medications Medication Instructions Recorded Confirmed Type aspirin 81 mg tablet,delayed 81 mg PO DAILY 12/17/19 01/28/21 History release (Adult Low Dose Aspirin) blood sugar diagnostic (True #400 each 03/07/20 01/28/21 Rx Metrix Glucose Test Strip) blood-glucose meter (True Metrix #1 each 03/07/20 01/28/21 Rx Glucose Meter) lancets #400 each 03/07/20 01/28/21 Rx nadolol 40 mg tablet 40 mg PO DAILY #90 tab 05/15/20 01/28/21 Rx liothyronine 5 mcg tablet 10 mcg PO DAILY #180 tab 08/22/20 01/28/21 Rx asenapine maleate 5 mg sublingual 10 mg SUBLINGUAL BEDTIME 10/13/20 01/28/21 History tablet (Saphris) sertraline 50 mg tablet 50 mg PO DAILY #90 tab 11/19/20 01/28/21 Rx levothyroxine 200 mcg tablet 200 mcg PO DAILY #90 tab 12/10/20 01/28/21 Rx metformin 1,000 mg tablet 1,000 mg PO BID #180 tab 12/19/20 01/28/21 Rx omeprazole 20 mg capsule,delayed 20 mg PO DAILY #90 cap 12/19/20 01/28/21 Rx release furosemide 40 mg tablet 40 mg PO DAILY #90 tab 02/23/21 Rx pravastatin 20 mg tablet 20 mg PO BEDTIME #90 tab 03/01/21 Rx hydroxyzine HCl 50 mg tablet 50 mg PO TID PRN #90 tab 03/11/21 Rx asenapine maleate 5 mg sublingual mg SUBLINGUAL 03/27/21 History tablet Allergies Allergy/AdvReac Type Severity Reaction Status Date / Time Penicillins [PENICILLINS] Allergy Unknown Verified 03/27/21 10:26 Sulfa (Sulfonamide Allergy Unknown Verified 03/27/21 10:26 Antibiotics) [SULFA (SULFONAMIDE ANTIBIOTICS)] sulfamethoxazole Allergy Verified 03/27/21 10:26 [From Bactrim] trimethoprim [From Bactrim] Allergy Verified 03/27/21 10:26 Exam Vital Signs (past 8 hours): - 03/27/21 10:36 Temperature 97.5 F L Pulse Rate 60 Respiratory Rate 14 Blood Pressure 112/69 Pulse Oximetry 97 Oxygen Delivery Method Room Air Narrative Exam Narrative: Oropharynx free of lesions Chest clear to auscultation percussion Cardiac exam reveals no S3 or murmur Assessment & Plan Assessment & Plan narrative: History of esophageal varices need for follow-up EGD and possible banding. Risks, benefits, alternatives have been explained. Time Spent With Patient Critical Care time: I spent a total of [] minutes of critical care time on this patient's care today; this time is exclusive of procedural time.
[2021-03-27 11:20] VITALS: BP 109/63; PULSE 72; RESP 12; TEMP 36.7; O2SAT 96
--- NOTE | 2021-03-27 11:21 | PM.OP.EGD ---
Operative Date/Time/Diagnoses Date of procedure: 03/27/21 Pre-op diagnosis: See indication and findings Procedure & Clinicians Study performed: EGD with biopsy Indications: History of esophageal varices with an episode of alcoholic hepatitis need for follow-up to rule out presence of varices Surgeon: Juan Shaffer Procedure Notes Procedure in detail: After informed consent was obtained the patient was placed in left lateral decubitus position. The video upper scope was placed into the oropharynx and with the patient's help swelled the esophagus. The esophagus stomach and duodenum were carefully examined. On withdrawal retroflexed view the GE junction was performed. The scope was removed. The patient will the procedure well. Blood loss none Complications none Sedation mac Findings 1. Normal esophagus without evidence of esophageal varices. 2. Two erosions at the squamocolumnar junction for LA classification C esophagitis 3. Patchy erythema in the stomach biopsies taken to rule out Helicobacter 4. Normal duodenal bulb and sweep Will be in touch regarding biopsies. We will increase her anti-reflux medication due to her erosions. We can discuss further at the time of discuss care biopsies.
[2021-03-27 11:26] VITALS: BP 97/53; PULSE 67; RESP 18; O2SAT 94
[2021-03-27 11:30] VITALS: BP 101/59; PULSE 60; RESP 14; O2SAT 94
[2021-03-27 11:32] VITALS: BP 112/64; PULSE 61; RESP 14; TEMP 36.6; O2SAT 96
[2021-03-27 11:42] VITALS: BP 107/55; PULSE 62; RESP 15; TEMP 36.6; O2SAT 97
--- NOTE | 2021-03-27 11:54 | SUR.PHASEII ---
1134-Patient met criteria. wide awake,tolerating ice chips-refused po fluidss. abdomen soft-passing gas well. denies pain. gait steady. offered restroom. to car by w/chair to family member with all belongings and instructions.
== END 2021-03-27 11:34 | disposition home or self-care (01) ==
PROVIDERS: PCP Student in an Organized Health Care Education/Training Program; Referring Provider Internal Medicine Gastroenterology; Visit Provider Internal Medicine Gastroenterology
PROC: 0DJ08ZZ Inspection of Upper Intestinal Tract, Via Natural or Artificial Opening Endoscopic (ICD-10-PCS; CPT 43235; principal; 2021-03-27 11:30)
DX: K29.50 Unspecified chronic gastritis without bleeding (principal); K70.30 Alcoholic cirrhosis of liver without ascites; R68.81 Early satiety; K21.9 Gastro-esophageal reflux disease without esophagitis; E66.9 Obesity, unspecified; E11.9 Type 2 diabetes mellitus without complications; E03.9 Hypothyroidism, unspecified; E78.5 Hyperlipidemia, unspecified; F31.9 Bipolar disorder, unspecified; Z79.84 Long term (current) use of oral hypoglycemic drugs
CPT/HCPCS: 43239; J2704

== ENCOUNTER → 2021-03-29 11:29 | Outpatient (CLI) | payer OTHER, MEDICAID, SELFPAY ==
[2020-10-13 08:51] VITALS: BMI 38.7
[2021-03-29 14:26] LABS: BUN Creatinine Ratio 26.7 (6-22); Blood Urea Nitrogen 12 mg/dL (7-17); Calcium 9.3 mg/dL (8.4-10.2); Carbon Dioxide 32 mmol/L (22-32); Chloride 95 mmol/L (98-107); Estimated Glomerular Filt Rate > 60.0 mL/min (>60); Glucose 182 mg/dL (70-100); HEMOLYSIS 30 (0-50); Magnesium 1.8 mg/dL (1.6-2.3); Potassium 3.9 mmol/L (3.4-5.1); Sodium 136 mmol/L (137-145)
[2021-03-29 16:40] LABS: Creatinine Urine Random 7.4 mg/dL
[2021-03-29 17:38] LABS: Microalbumin Urine Random < 0.6 mg/dL (0-1.6)
[2021-03-29 21:55] LABS: Hemoglobin A1C% w Est Avg Glu 6.4 % (4.0-6.0)
== END ==
PROVIDERS: PCP Student in an Organized Health Care Education/Training Program; Referring Provider Student in an Organized Health Care Education/Training Program; Visit Provider Student in an Organized Health Care Education/Training Program
DX: E83.42 Hypomagnesemia (principal); E11.9 Type 2 diabetes mellitus without complications; E87.6 Hypokalemia
CPT/HCPCS: 36415; 80048; 82043; 82570; 83036; 83735

== ENCOUNTER → 2021-04-11 08:40 | Outpatient (CLI) | payer OTHER, MEDICAID, SELFPAY ==
[2020-10-13 08:51] VITALS: BMI 38.7
--- NOTE | 2021-04-11 08:46 | DI.CT.S_ITS ---
PROCEDURE: CT ABDOMEN WO/W CON INDICATIONS: Echogenic focus on prior ultrasound. TECHNIQUE: 4 phase scanning was performed. Non-contrast 5 mm axial sections acquired from the diaphragm to the iliac crests. Following the administration of intravenous contrast, 5 mm thick arterial-phase, portal venous-phase, and 5-minute delayed phase images were acquired through the liver. 5 mm thick coronal and sagittal reformats were performed. For radiation dose reduction, the following was used: automated exposure control, adjustment of mA and/or kV according to patient size. COMPARISON: [facility], US, US ABDOMEN COMPLETE, 02/26/2021, 11:05. FINDINGS: Image quality: Excellent. Lung bases: Lung bases are clear. Heart size is normal. Liver: Nodular surface contour. No arterial hyperenhancing focus. There is a subtle hypodense focus on the arterial phase in the right lobe of the liver segment 7. This becomes more conspicuous on the portal venous phase and only faintly visualized on the delayed phase. This measures 1.1 x 0.8 cm, (/). This likely corresponds to the echogenic focus seen on prior ultrasound given its proximity to the right hepatic vein. Other solid organs: Gallbladder is not distended. Small layering gallstones. Biliary system is non dilated. Pancreas is normal in morphology. Spleen is at the upper limits of normal measuring 12.7 cm. No adrenal nodules. Both kidneys demonstrate normal size and enhancement, without hydronephrosis or nephrolithiasis. Several small simple appearing cysts. No solid renal mass. Nodes and vessels: No retroperitoneal or mesenteric adenopathy by size criteria. Aorta and inferior vena cava are normal in size. Bowel and peritoneum: Unenhanced bowel loops are normal in caliber. Pending is not dilated. No free fluid or air. Bones: No suspicious bony lesions. No vertebral body compression fractures. Miscellaneous: No ventral hernias. IMPRESSION: 1. Nodular liver contour is suspicious for cirrhosis. 2. Hypodense focus in segment 7 measuring 1.1 cm. No arterial hyperenhancement. LR 3. -consider further characterization with MRI of the liver. -Recommend follow-up imaging with MRI of the liver. 3. Cholelithiasis. Dictated by: Hipolito Loya M.D. on 04/11/2021 at 11:27 Approved by: Hipolito Loya M.D. on 04/11/2021 at 11:39
== END ==
PROVIDERS: PCP Student in an Organized Health Care Education/Training Program; Referring Provider Internal Medicine Gastroenterology; Visit Provider Internal Medicine Gastroenterology
DX: R93.5 Abnormal findings on diagnostic imaging of other abdominal regions, including retroperitoneum (principal); K80.20 Calculus of gallbladder without cholecystitis without obstruction; Z20.822 Contact with and (suspected) exposure to COVID-19
CPT/HCPCS: 74170; 87635; Q9967

== ENCOUNTER → 2021-04-11 09:24 | Outpatient (CLI) | payer OTHER, MEDICAID, SELFPAY ==
[2020-10-13 08:51] VITALS: BMI 38.7
[2021-04-11 10:27] LABS: COVID19 -Nasal RAPID Negative (Negative)
== END ==
PROVIDERS: PCP Student in an Organized Health Care Education/Training Program; Referring Provider Specialist; Visit Provider Specialist
DX: Z01.812 Encounter for preprocedural laboratory examination (principal); Z20.822 Contact with and (suspected) exposure to COVID-19
CPT/HCPCS: 87635

== ENCOUNTER 2021-04-12 06:26 | Day surgery (SDC) | payer OTHER, MEDICAID, SELFPAY ==
[2020-10-13 08:51] VITALS: BMI 38.7
[2021-04-10 13:03] VITALS: BMI 33.8
[2021-04-12] VITALS (10 sets, daily range): BP systolic 117–141; BP diastolic 56–72; PULSE 51–60; RESP 10–18; TEMP 36.2–36.8; O2SAT 93–100; BMI 33.8
--- NOTE | 2021-04-12 | PATH_ITS ---
[facility] Accession Number: [id number] . 01 Material submitted: . endometrium - ENDOMETRIAL CURETTAGE . 02 Diagnosis: Endometrium, Curettage: Proliferative endometrium with no diagnostic abnormality. Endocervical mucosa with squamous metaplasia and features of benign microglandular hyperplasia. Strips of squamous epithelium with no diagnostic abnormality. No evidence of neoplasm. MRV 04/16/2021 1705 Local . 02 Electronically signed: . Ronak Ibarra MD, PhD, Pathologist NPI- [id number] . 01 Gross description: . ENDOMETRIAL CURETTAGE: Received in formalin are minute fragments of mucoid and hemorrhagic material measuring 2.5 x 2.0 x 0.8 cm in aggregate. Submitted in toto in 2 cassettes. /QBJ 04/13/2021 0749 Local . 02 Pathologist provided ICD-10: N92.0 . 02 CPT . 266755 Performed at: 01 [facility] [address], [place], [place] [id number] MD Aamir Trujillo MD Phone: [phone] Performed at: 02 [facility] [address] [place], [place] [id number] MD Natalie Albright MD Phone: [phone]
--- NOTE | 2021-04-12 07:19 | SUR.OPER ---
Lithotomy on padded OR bed, head on pillow, arms secured on padded arm boards at <90 degrees abduction. Legs secured in padded yellow fins stirrups.
--- NOTE | 2021-04-12 07:31 | PM.PREOP ---
Pre-operative Note COVID-19 COVID-19 status: Negative Result date/Date tested (Pos, Neg/Pending): 04/11/21 Interval Note History & Physical reviewed/Exam performed by Physician: Yes Changes to H&P: No
[2021-04-12] MEDS: LACTATED RINGERS 1,000 ML 100 ML IV (07:32)
--- NOTE | 2021-04-12 08:25 | PM.OP.1 ---
Operative Date/Time/Diagnoses Date of procedure: 04/12/21 Time of procedure: 08:25 Pre-op diagnosis: Postmenopausal bleeding Post-op diagnosis: same Procedure & Clinicians Procedure: Hysteroscopy D&C Same procedure as scheduled: Yes Indications: Postmenopausal bleeding Surgeon: Rebekah Garcia Click Yes if Unassisted: Yes Anesthesia Type: General Operative Notes Findings: Normal exam under anesthesia. Normal uterus was slightly thickened endometrium. Closure Type: not applicable Specimen(s): other (Endometrial curettage) Estimated Blood Loss (mL): 1 Blood products transfused: none Procedure in detail: The patient was brought to the operating room where she underwent general anesthesia. She was placed in low stirrups She was prepped and draped in usual sterile fashion with pulsatile stockings in place and functional, warming in place. Her bladder was drained with in and out catheter. A single-tooth tenaculum was placed on the anterior lip of the cervix and the uterus dilated to #8 Hegar dilator. The hysteroscope was placed into the uterus with a saline solution running. An endometrial curettage was performed. The endometrial curettage was sent to pathology. The patient went to recovery room in good condition counts of instruments and sponges were correct. Complications: none Post-operative Condition: stable Disposition: same day surgery Plan for aftercare: Home when awake and stable. Treatment and follow-up based on biopsy results.
[2021-04-12] MEDS: fentaNYL 100 MCG/2 ML INJ IV (08:39)
[2021-04-12] MEDS: hydrOXYzine 50 MG/ML INJ 25 MG IM (08:41)
[2021-04-12] MEDS: OXYCODONE IR 5 MG TABLET PO (08:42)
--- NOTE | 2021-04-12 08:47 | SUR.PHASEI ---
Received to PACU after general anesthesia. Oral airway removed upon arrival by Dr Oviedo. No further airway assistance required. Peppermint tea and aroma therapy initiated to prevent nausea. 0845 - Incentive spirometry initiated - up to 2250 cc.
--- NOTE | 2021-04-12 09:46 | SUR.PHASEII ---
Pt ambulating gait steady, drinking water without problems, VSS, denies pain or nausea, up to bathroom and voiding without difficulty. Upon standing small gush of serosanguinous vaginal fluid noted otherwise peripad dry thereafter. Pt getting dressed now, iv dcd and site clear.
== END 2021-04-12 09:36 | disposition home or self-care (01) ==
PROVIDERS: PCP Student in an Organized Health Care Education/Training Program; Referring Provider Specialist; Visit Provider Specialist
PROC: 0UDB8ZZ Extraction of Endometrium, Via Natural or Artificial Opening Endoscopic (ICD-10-PCS; CPT 58558; principal; 2021-04-12 07:45)
DX: N95.0 Postmenopausal bleeding (principal)
CPT/HCPCS: 58558; 82962; J1100; J1885; J2250; J2405; J3010; J3410

== ENCOUNTER 2021-05-31 13:26 | Inpatient (IN) | payer OTHER, MEDICAID, SELFPAY ==
[2020-10-13 08:51] VITALS: BMI 38.7
[2021-05-31] VITALS (13 sets, daily range): BP systolic 112–150; BP diastolic 45–80; PULSE 61–68; RESP 14–18; TEMP 35.7–36.9; O2SAT 95–98; BMI 32.5
[2021-05-31 13:57] LABS: Appearance Urine UA CLEAR; Bilirubin Urine UA NEGATIVE (NEGATIVE); Color Urine UA YELLOW; Glucose Urine UA TRACE g/dL (Negative); Ketones Urine UA NEGATIVE (NEGATIVE); Leukocyte Esterase Urine UA NEGATIVE (NEGATIVE); Nitrite Urine UA NEGATIVE (Negative); Occult Blood Urine UA TRACE-INTACT (Negative); Protein Urine UA NEGATIVE (Negative); Specific Gravity Urine UA <=1.005 (1.000-1.035); Urobilinogen Urine UA 0.2 E.U./dL (0.2); pH Urine UA 5.5 (4.5-8.0)
[2021-05-31 14:01] LABS: UR Morphine/Opiate cutoff 300 Negative (Negative); Ur Creatinine Normal (Normal); Ur Specific Gravity Normal (Normal); Urine Amphetamines Negative (Negative); Urine Barbiturates Negative (Negative); Urine Benzodiazepines Negative (Negative); Urine Cocaine Negative (Negative); Urine MDMA Negative (Negative); Urine Methadone Negative (Negative); Urine Methamphetamines Negative (Negative); Urine Oxycodone Negative (Negative); Urine Phencyclidine Negative (Negative); Urine Tetrahydrocannabinol Positive (Negative); Urine Tricyclic Antidepressant Negative (Negative); Urine pH Normal (Normal)
[2021-05-31 14:02] LABS: Acetaminophen < 10 ug/mL (10-30); Alanine Aminotransferase 36 IU/L (<35); Albumin 4.9 g/dL (3.5-5.0); Albumin Globulin Ratio 1.3 (1.0-2.8); Alkaline Phosphatase 111 U/L (38-126); Aspartate Aminotransferase 42 IU/L (14-36); BUN Creatinine Ratio 9.1 (6-22); Bilirubin Total 0.6 mg/dL (0.2-1.3); Blood Urea Nitrogen 4 mg/dL (7-17); Calcium 9.6 mg/dL (8.4-10.2); Carbon Dioxide 29 mmol/L (22-32); Chloride 82 mmol/L (98-107); Estimated Glomerular Filt Rate > 60.0 mL/min (>60); Ethanol (ETOH) 184 mg/dL; Globulin 3.8 g/dL (1.7-4.1); Glucose 197 mg/dL (70-100); HEMOLYSIS 17 (0-50); Potassium 3.7 mmol/L (3.4-5.1); Salicylate < 1.0 mg/dL (<20); Sodium 125 mmol/L (137-145); Total Protein 8.7 g/dL (6.3-8.2)
[2021-05-31 14:03] LABS: Bacteria Urine None Seen; Culture Indicated Urine Cult Not Indicated; RBC Urine 1-5/HPF (0-5/HPF); Squamous Epithelial Cell Urine 1-5 /HPF (0-5/HPF); WBC Urine None Seen (0-5/HPF)
[2021-05-31 14:05] LABS: Add Manual Diff / Slide Review NO; Basophils Absolute Auto 200 /uL (0-100); Basophils Percent Auto 1.2 % (0-2); Eosinophils Absolute Auto 0 /uL (0-450); Eosinophils Percent Auto 0.3 % (2-4); Hematocrit 39.6 % (36-46); Hemoglobin 13.5 g/dL (12.0-16.0); Lymphocytes Absolute Auto 3000 /uL (1100-4500); Lymphocytes Percent Auto 23.6 % (25-40); Mean Corpuscular HGB Conc 34.2 % (30-36); Monocytes Absolute Auto 700 /uL (0-900); Monocytes Percent Auto 5.8 % (3-14); Neutrophils Absolute Auto 8700 /uL (1500-7000); Neutrophils Percent Auto 69.1 % (50-75); Platelet Count 358 X10^3/uL (150-400); Red Blood Cell Count 5.21 X10^6/uL (4.0-5.2); Red Cell Distribution Width 16.5 % (11.6-14.8); White Blood Cell Count 12.5 X10^3/uL (4.5-11.0)
--- NOTE | 2021-05-31 14:07 | ED.PSYCH ---
HPI - Psych General Chief Complaint: Psychiatric Symptoms Stated Complaint: Fell of the [facility], Time Seen by Provider: 05/31/21 13:56 Source: patient Mode of arrival: Ambulatory History of Present Illness HPI Narrative: Patient is a 51-year-old female. Has a history of cirrhosis. Has a history of alcohol abuse. Also has had a history of suicidal gestures/attempts in the past. Patient states that a little over 1 year ago she went through detox and rehab. Was sober from alcohol for 1 year. Approximately 1 month ago she ?got some bad news ?and has been drinking on a daily basis for the past month. She is here because she would like to quit drinking. The stated complaint also mentions suicidal ideation but the patient states that she does feels very poorly about herself because she has been drinking and is currently drinking and that she ?fell off the [facility]? she does not have any specific suicidal thoughts. Last drink was prior to coming here to the ER. She has withdrawn from alcohol in the past. Has had seizures in the past. Frequently has anxiety and sweating because of alcohol withdrawal. She has been drinking today to ?keep the shakes away ?patient also reports that a couple days ago she tripped and fell and hurt her right ankle and right toe and has bruising over her right great toe. Related Data Home Medications Medication Instructions Recorded Confirmed aspirin 81 mg tablet,delayed 81 mg PO DAILY 12/17/19 04/12/21 release (Adult Low Dose Aspirin) Previous Rx's Medication Instructions Recorded blood sugar diagnostic (True #400 each 03/07/20 Metrix Glucose Test Strip) blood-glucose meter (True Metrix #1 each 03/07/20 Glucose Meter) lancets #400 each 03/07/20 levothyroxine 200 mcg tablet 200 mcg PO DAILY #90 tab 12/10/20 metformin 1,000 mg tablet 1,000 mg PO BID #180 tab 12/19/20 omeprazole 20 mg capsule,delayed 20 mg PO DAILY #90 cap 12/19/20 release furosemide 40 mg tablet 40 mg PO DAILY #90 tab 02/23/21 pravastatin 20 mg tablet 20 mg PO BEDTIME #90 tab 03/01/21 liothyronine 5 mcg tablet 10 mcg PO DAILY #180 tab 04/20/21 nadolol 40 mg tablet 40 mg PO DAILY #90 tab 12/17/21 sertraline 50 mg tablet 50 mg PO DAILY #90 tab 05/13/21 asenapine maleate 5 mg sublingual 5 mg SUBLINGUAL BID #60 tab 05/15/21 tablet (Saphris) hydroxyzine HCl 50 mg tablet 50 mg PO TID PRN #90 tab 05/20/21 Allergies Allergy/AdvReac Type Severity Reaction Status Date / Time Penicillins [PENICILLINS] Allergy Intermediate Swelling Verified 05/31/21 13:41 of Lip/Tongue/Throat Sulfa (Sulfonamide Allergy Intermediate Rash Verified 05/31/21 13:41 Antibiotics) [SULFA (SULFONAMIDE ANTIBIOTICS)] sulfamethoxazole Allergy Intermediate Rash Verified 05/31/21 13:41 [From Bactrim] trimethoprim [From Bactrim] Allergy Intermediate Rash Verified 05/31/21 13:41 Review of Systems Constitutional Constitutional: Denies headache(s) ENT Ears, Nose, Mouth, and Throat: Denies headache(s) Cardiovascular Cardiovascular: Denies chest pain and Denies dyspnea Respiratory Respiratory: Denies dyspnea Gastrointestinal Gastrointestinal: Denies abdominal pain Integumentary/Breasts Skin/Breast: Reports system reviewed and no additional complaints, except as documented Neurologic Neurologic: Denies headache(s) Psychiatric Psychiatric: Reports system reviewed and no additional complaints, except as documented Hematologic/Lymphatic On Anticoagulants: No Patient History Medical History Anxiety Avascular necrosis of bone of hip Bipolar disorder Chicken pox Chlamydia (~1988) Cirrhosis Colon polyp COPD (chronic obstructive pulmonary disease) Depression Esophageal varices Esophageal web Hayfever Hemorrhoids Hypothyroidism (1997) Irregular periods/menstrual cycles MRSA infection Pancytopenia Papillary adenocarcinoma of thyroid Seizures Shoulder pain Substance abuse Surgical History Anesthesia complication History of adenoidectomy History of bunionectomy History of dilation and curettage History of esophageal surgery (2016) History of left hip replacement (08/2017) History of placement of ear tubes History of right hip replacement (11/2017) History of tonsillectomy History of total thyroidectomy (1997) Family History Father No problems noted. Mother Depression Hyperlipidemia Thyroid disorder Mental health problem Brother No problems noted. Grandfather Lung cancer Cancer Grandmother Thyroid disorder Potassium disorder Hyperlipidemia Hypertension Grandfather No problems noted. Grandmother No problems noted. Family/Other No problems noted. Social History household members: significant other Smoking Status: Former smoker alcohol intake: former substance use type: does not use eating out: rarely or never Type(s) of exercise: none Smoking Status: Former smoker alcohol intake frequency: 3 or more drinks per day Alcohol type: beer Substance Use Type: marijuana Exam Initial Vital Signs Initial Vital Signs: Vital Signs Temperature 98.5 F 05/31/21 13:31 Pulse Rate 68 05/31/21 13:31 Respiratory Rate 14 05/31/21 13:31 Blood Pressure 150/80 H 05/31/21 13:31 Pulse Oximetry 96 05/31/21 13:31 HENMT Head: normal to inspection and normocephalic Resp Effort & Inspection: normal respiratory effort Auscultation: clear to auscultation bilaterally Cardio Rate: regular rate Rhythm: regular rhythm GI Inspection: normal to inspection Skin Other: Bruising on the dorsum of the right toe over the IP joint. Neuro General: patient alert, patient awake, patient oriented x3 and moves all extremities Extrem General: normal to inspection and capillary refill normal Other: Does have some tenderness to palpation along the lateral/medial malleoli of the right ankle. Psych Appearance: grossly normal and well kempt Mental Status: mental status grossly normal Speech and Movement: speech and movement normal, not agitated and restless Mood: congruent mood Attitude: cooperative Judgment: fair Scores GCS Magdi coma scale eye opening: Spontaneous Magdi coma scale verbal response: Orientated Magdi coma scale motor response: Obey commands [place]on coma scale total score: 15 Course Orders Ordered: ED Orders 05/31/21 13:40 Consult to LEASE EXAMINER - Membership Director Stat 05/31/21 13:43 Acetaminophen Stat Complete Blood Count AUTO DIFF Stat Comprehensive Metabolic Panel Stat Ethanol (ETOH) Stat Free T4, Direct Thyroxine Stat Salicylate Stat Thyroid Stimulating Hormone Stat 05/31/21 13:51 Test Urine Stat Urinalysis and Microscopic Stat Urine Drug Screen, Rapid Stat 05/31/21 14:08 XR foot RT min 3V Stat 05/31/21 14:09 XR ankle RT min 3V Stat 05/31/21 14:54 COVID19 - ADMIT (MICROBIOLOGICAL LAB TECHNICIAN swab/PCR) Stat Multivitamins (Multivitamin 1 Tablet) 1 tab PO NOW ONE Stop: 05/31/21 15:25 Discontinued Medications Thiamine HCl 100 mg/ Sodium (Chloride) 101 mls @ 404 mls/hr IV NOW ONE Stop: 05/31/21 15:24 Ondansetron HCl (Ondansetron 4 Mg/2 Ml Inj) 4 mg IV NOW ONE Stop: 05/31/21 15:14 Last Admin: 05/31/21 15:15 Dose: 4 mg Documented by: LEONEL Phenobarbital (Phenobarbital 65 Mg/Ml Vial) 260 mg IV NOW ONE Stop: 05/31/21 14:21 Last Admin: 05/31/21 14:31 Dose: 260 mg Documented by: LEONEL Vital Signs Vital signs: Vital Signs - 8 hr 05/31/21 13:31 05/31/21 13:35 05/31/21 14:00 Temperature 98.5 F Pulse Rate 68 65 64 Respiratory Rate 14 Blood Pressure 150/80 H 123/64 Pulse Oximetry 96 96 96 05/31/21 14:30 05/31/21 15:00 05/31/21 15:16 Temperature Pulse Rate 63 63 64 Respiratory Rate 18 Blood Pressure 112/67 125/77 Pulse Oximetry 95 97 97 MDM - Psych Lab Data Attestation: I reviewed the patient's lab results. Result diagrams: 05/31/21 13:43 05/31/21 13:43 Labs: Lab Results 05/31/21 05/31/21 05/31/21 Range/Units 13:43 13:43 13:43 WBC 12.5 H (4.5-11.0) X10^3/uL RBC 5.21 H (4.0-5.2) X10^6/uL Hgb 13.5 (12.0-16.0) g/dL Hct 39.6 (36-46) % MCV 76.0 L (80-100) fL MCH 26.0 (26-34) PG MCHC 34.2 (30-36) % RDW 16.5 H (11.6-14.8) % Plt Count 358 (150-400) X10^3/uL Neut % (Auto) 69.1 (50-75) % Lymph % (Auto) 23.6 L (25-40) % [place] % (Auto) 5.8 (3-14) % Eos % (Auto) 0.3 L (2-4) % Baso % (Auto) 1.2 (0-2) % Neut # (Auto) 8700 H (5008-0636) /uL Lymph # (Auto) 3000 (7959-3942) /uL [place] # (Auto) 700 (0-900) /uL Eos # (Auto) 0 (0-450) /uL Baso # (Auto) 200 H (0-100) /uL Sodium 125 L (137-145) mmol/L Potassium 3.7 (3.4-5.1) mmol/L Chloride 82 L (98-107) mmol/L Carbon Dioxide 29 (22-32) mmol/L BUN 4 L (7-17) mg/dL Creatinine 0.44 L (0.52-1.04) mg/dL Estimated GFR > 60.0 (>60) mL/min BUN/Creatinine Ratio 9.1 (6-22) Glucose 197 H (70-100) mg/dL Calcium 9.6 (8.4-10.2) mg/dL Total Bilirubin 0.6 (0.2-1.3) mg/dL AST 42 H (14-36) IU/L ALT 36 H (<35) IU/L Alkaline Phosphatase 111 (38-126) U/L Total Protein 8.7 H (6.3-8.2) g/dL Albumin 4.9 (3.5-5.0) g/dL Globulin 3.8 (1.7-4.1) g/dL Albumin/Globulin Ratio 1.3 (1.0-2.8) TSH 0.057 L (0.47-4.68) uIU/mL Free T4 2.15 (0.78-2.19) ng/dL Urine Color Urine Appearance Urine pH (4.5-8.0) Ur Specific [place] (1.000-1.035) Urine Protein (Negative) Urine Glucose (UA) (Negative) g/dL Urine Ketones (NEGATIVE) Urine Occult Blood (Negative) Urine Nitrate (Negative) Urine Bilirubin (NEGATIVE) Urine Urobilinogen (0.2) E.U./dL Ur Leukocyte Esterase (NEGATIVE) Urine RBC (0-5/HPF) Urine WBC (0-5/HPF) Ur Squamous Epith Cells (0-5/HPF) Urine Bacteria (None) Ur Culture Indicated? Urine Test (Negative) Salicylates < 1.0 (<20) mg/dL U Opiates 300ng/mL cut (Negative) Ur Oxycodone Screen (Negative) Urine Methadone Screen (Negative) Acetaminophen < 10 L (10-30) ug/mL Ur Barbiturates Screen (Negative) U Tricyclic Antidepress (Negative) Ur Phencyclidine Scrn (Negative) Ur Amphetamines Screen (Negative) U Methamphetamines Scrn (Negative) Ur MDMA Scrn (Ecstasy) (Negative) U Benzodiazepines Scrn (Negative) Urine Cocaine Screen (Negative) U Marijuana (THC) Screen (Negative) Ethyl Alcohol 184 H ( - 10) mg/dL 05/31/21 05/31/21 05/31/21 Range/Units 13:51 13:51 13:51 WBC (4.5-11.0) X10^3/uL RBC (4.0-5.2) X10^6/uL Hgb (12.0-16.0) g/dL Hct (36-46) % MCV (80-100) fL MCH (26-34) PG MCHC (30-36) % RDW (11.6-14.8) % Plt Count (150-400) X10^3/uL Neut % (Auto) (50-75) % Lymph % (Auto) (25-40) % [place] % (Auto) (3-14) % Eos % (Auto) (2-4) % Baso % (Auto) (0-2) % Neut # (Auto) (3629-1628) /uL Lymph # (Auto) (4955-8256) /uL [place] # (Auto) (0-900) /uL Eos # (Auto) (0-450) /uL Baso # (Auto) (0-100) /uL Sodium (137-145) mmol/L Potassium (3.4-5.1) mmol/L Chloride (98-107) mmol/L Carbon Dioxide (22-32) mmol/L BUN (7-17) mg/dL Creatinine (0.52-1.04) mg/dL Estimated GFR (>60) mL/min BUN/Creatinine Ratio (6-22) Glucose (70-100) mg/dL Calcium (8.4-10.2) mg/dL Total Bilirubin (0.2-1.3) mg/dL AST (14-36) IU/L ALT (<35) IU/L Alkaline Phosphatase (38-126) U/L Total Protein (6.3-8.2) g/dL Albumin (3.5-5.0) g/dL Globulin (1.7-4.1) g/dL Albumin/Globulin Ratio (1.0-2.8) TSH (0.47-4.68) uIU/mL Free T4 (0.78-2.19) ng/dL Urine Color Yellow Urine Appearance Clear Urine pH 5.5 (4.5-8.0) Ur Specific [place] <=1.005 (1.000-1.035) Urine Protein Negative (Negative) Urine Glucose (UA) Trace H (Negative) g/dL Urine Ketones Negative (NEGATIVE) Urine Occult Blood Trace-intact (Negative) Urine Nitrate Negative (Negative) Urine Bilirubin Negative (NEGATIVE) Urine Urobilinogen 0.2 (0.2) E.U./dL Ur Leukocyte Esterase Negative (NEGATIVE) Urine RBC 1-5/hpf (0-5/HPF) Urine WBC None seen (0-5/HPF) Ur Squamous Epith Cells 1-5 /hpf (0-5/HPF) Urine Bacteria None seen (None) Ur Culture Indicated? Cult not indicated Urine Test Negative (Negative) Salicylates (<20) mg/dL U Opiates 300ng/mL cut Negative (Negative) Ur Oxycodone Screen Negative (Negative) Urine Methadone Screen Negative (Negative) Acetaminophen (10-30) ug/mL Ur Barbiturates Screen Negative (Negative) U Tricyclic Antidepress Negative (Negative) Ur Phencyclidine Scrn Negative (Negative) Ur Amphetamines Screen Negative (Negative) U Methamphetamines Scrn Negative (Negative) Ur MDMA Scrn (Ecstasy) Negative (Negative) U Benzodiazepines Scrn Negative (Negative) Urine Cocaine Screen Negative (Negative) U Marijuana (THC) Screen Positive H (Negative) Ethyl Alcohol ( - 10) mg/dL Imaging Data Extremity x-ray #1: Radiologist's Impression: [address] [address] XRay Report Signed Patient: Yin Burch MR#: [id number] : 1970 Acct:[id number] Age/Sex: 51 / F Date of Service: 05/31/21 Loc: ED Accession Number: [id number] ?? Procedure: XR foot RT min 3V Ordering Provider: Vitor Scott D.O. PROCEDURE:? XR FOOT RT MIN 3V ? INDICATIONS:? foot pain after fall ? TECHNIQUE:? 3 views of the foot were acquired.? ? COMPARISON:? None. ? FINDINGS:? ? Bones:? No fractures or dislocations.? No suspicious bony lesions.? ? Soft tissues:? No tibiotalar joint effusion.? Achilles tendon appears normal.? ? ? IMPRESSION:? No evidence acute bony abnormality of the right foot. ? If clinical suspicion and/or symptoms persist, further assessment with repeat plain films, or advanced imaging (e.g., CT, MRI, or bone scan) may be helpful for further assessment. ? ? ? Dictated by: Mikey Lowe M.D. on 05/31/2021 at 14:48 ? ? Approved by: Mikey Lowe M.D. on 05/31/2021 at 14:49?? Extremity x-ray #2: Radiologist's Impression: [address] [address]JB[place] ReportSigned Patient: Yin Burch LMR#: [id number]: 1970Acct:[id number]/Sex: 51 / FDate of Service: 05/31/21Loc: EDAccession Number: [id number]? ? Procedure: XR ankle RT min 3V Ordering Provider: Vitor Scott D.O. PROCEDURE:? XR ANKLE RT MIN 3V ? INDICATIONS:? pain after fall ? TECHNIQUE:? 3 views of the ankle were acquired.? ? COMPARISON:? [facility], , XR ANKLE RT MIN 3V, 09/30/2018, 20:45. ? FINDINGS:? ? Bones:? No fractures or dislocations.? Ankle mortise is normally aligned.? No suspicious bony lesions.? ? Soft tissues:? No tibiotalar joint effusion.? Achilles tendon appears normal.? ? ? IMPRESSION:? No evidence acute bony abnormality of the right ankle. ? If clinical suspicion and/or symptoms persist, further assessment with repeat plain films, or advanced imaging (e.g., CT, MRI, or bone scan) may be helpful for further assessment. ? Dictated by: Mikey Lowe M.D. on 05/31/2021 at 14:49? ?? Approved by: Mikey Lowe M.D. on 05/31/2021 at 14:49?? MDM Narrative Medical decision making narrative: Patient has a significant alcohol withdrawal issues in the past to include seizures and DTs. He has been drinking on a daily basis for the last month. Alcohol level is elevated today. She has been drinking throughout today in order to keep the shakes away. Patient would like help with detox. Discussed the case with Dr. Garcia internal medicine who will admit for further evaluation and treatment. Discharge Plan Departure Patient Disposition: Admitted as Observation Clinical Impression: Alcohol intoxication, Alcohol withdrawal, Hyponatremia Admit Date/Time: 05/31/21 15:26
--- NOTE | 2021-05-31 14:08 | DI.RAD.S_ITS ---
PROCEDURE: XR FOOT RT MIN 3V INDICATIONS: foot pain after fall TECHNIQUE: 3 views of the foot were acquired. COMPARISON: None. FINDINGS: Bones: No fractures or dislocations. No suspicious bony lesions. Soft tissues: No tibiotalar joint effusion. Achilles tendon appears normal. IMPRESSION: No evidence acute bony abnormality of the right foot. If clinical suspicion and/or symptoms persist, further assessment with repeat plain films, or advanced imaging (e.g., CT, MRI, or bone scan) may be helpful for further assessment. Dictated by: Mikey Lowe M.D. on 05/31/2021 at 14:48 Approved by: Mikey Lowe M.D. on 05/31/2021 at 14:49
--- NOTE | 2021-05-31 14:09 | DI.RAD.S_ITS ---
PROCEDURE: XR ANKLE RT MIN 3V INDICATIONS: pain after fall TECHNIQUE: 3 views of the ankle were acquired. COMPARISON: [facility], CR, XR ANKLE RT MIN 3V, 09/30/2018, 20:45. FINDINGS: Bones: No fractures or dislocations. Ankle mortise is normally aligned. No suspicious bony lesions. Soft tissues: No tibiotalar joint effusion. Achilles tendon appears normal. IMPRESSION: No evidence acute bony abnormality of the right ankle. If clinical suspicion and/or symptoms persist, further assessment with repeat plain films, or advanced imaging (e.g., CT, MRI, or bone scan) may be helpful for further assessment. Dictated by: Mikey Lowe M.D. on 05/31/2021 at 14:49 Approved by: Mikey Lowe M.D. on 05/31/2021 at 14:49
[2021-05-31 14:20] LABS: Pregnancy Test Urine Negative (Negative)
[2021-05-31 14:29] LABS: Free T4, Direct Thyroxine 2.15 ng/dL (0.78-2.19)
[2021-05-31] MEDS: PHENobarbital 65 MG/ML VIAL 260 MG IV (14:31)
[2021-05-31 14:43] LABS: Thyroid Stimulating Hormone 0.057 uIU/mL (0.47-4.68)
[2021-05-31] MEDS: ONDANSETRON 4 MG/2 ML INJ IV (15:15)
[2021-05-31] MEDS: MULTIVITAMIN 1 TABLET 1 TAB PO (15:43)
[2021-05-31] MEDS: THIAMINE 100 MG in SODIUM CHLORIDE 0.9% 100 ML 404 ML IV (15:44)
[2021-05-31 15:52] LABS: COVID19 - ADMIT (NP swab/PCR) Negative (Negative)
[2021-05-31] MEDS: PHENobarbital 65 MG/ML VIAL 130 MG IV (16:12)
[2021-05-31] MEDS: THIAMINE 100 MG TABLET PO (16:42)
[2021-05-31 17:16] LABS: Add Manual Diff / Slide Review NO; Basophils Absolute Auto 100 /uL (0-100); Basophils Percent Auto 0.9 % (0-2); Eosinophils Absolute Auto 0 /uL (0-450); Eosinophils Percent Auto 0.4 % (2-4); Hematocrit 37.9 % (36-46); Hemoglobin 12.9 g/dL (12.0-16.0); Lymphocytes Absolute Auto 3200 /uL (1100-4500); Lymphocytes Percent Auto 37.4 % (25-40); Mean Corpuscular HGB Conc 34.1 % (30-36); Mean Corpuscular Hemoglobin 25.9 PG (26-34); Monocytes Absolute Auto 500 /uL (0-900); Monocytes Percent Auto 5.4 % (3-14); Neutrophils Absolute Auto 4800 /uL (1500-7000); Neutrophils Percent Auto 55.9 % (50-75); Platelet Count 275 X10^3/uL (150-400); Red Blood Cell Count 4.99 X10^6/uL (4.0-5.2); Red Cell Distribution Width 16.1 % (11.6-14.8); White Blood Cell Count 8.6 X10^3/uL (4.5-11.0)
--- NOTE | 2021-05-31 18:04 | P.HP_ITS ---
History of Present Illness History of Present Illness Chief complaint: Fell of the [facility], Narrative: Ms. Burch is a 50W with PMH Type 2 DM, EtOH cirrhosis with esophageal varices s/p banding, etoh seizures, thyroid cancer s/p thyroidectomy, bipolar, depression who presents for request to detox from alcohol. She states she had been sober from alcohol for over a year, however she started drinking one month ago due to personal stress. She has been drinking 30 beers every 1.5 days. Last drink before coming in to the hospital. She has had withdrawal seizures in the past requiring intubation. She comes to the hospital because she wants to quite drinking. In the ED workup was done, temp 98.5 hr 68, bp 150/80, pulxe ox 96. Labs notable for WBC 12.5, hgb 13.5, plts 358, sodium 125, potassium 3.7, creatinine 0.44, ast/alt 42/36. tsh 0.057. Etoh level 184. UA negative. Chest xray was negative. She was feeling withdrawal so was given 260mg IV phenobarbital and felt this helped her. She was feeling still slight withdrawal symptoms when I saw her so was ordered for additional 130mg IV phenobarbital. Patient History Medical History Anxiety Avascular necrosis of bone of hip Bipolar disorder Chicken pox Chlamydia (~1988) Cirrhosis Colon polyp COPD (chronic obstructive pulmonary disease) Depression Esophageal varices Esophageal web Hayfever Hemorrhoids Hypothyroidism (1997) Irregular periods/menstrual cycles MRSA infection Pancytopenia Papillary adenocarcinoma of thyroid Seizures Shoulder pain Substance abuse Surgical History Anesthesia complication History of adenoidectomy History of bunionectomy History of dilation and curettage History of esophageal surgery (2016) History of left hip replacement (08/2017) History of placement of ear tubes History of right hip replacement (11/2017) History of tonsillectomy History of total thyroidectomy (1997) Family & Social History Family History Father No problems noted. Mother Depression Hyperlipidemia Thyroid disorder Mental health problem Brother No problems noted. Grandfather Lung cancer Cancer Grandmother Thyroid disorder Potassium disorder Hyperlipidemia Hypertension Grandfather No problems noted. Grandmother No problems noted. Family/Other No problems noted. Social History: household members significant other Prior Living Arrangements House Safety & Behavioral: Feels Safe in Current Yes Environment Been Physically Hurt or No Threatened By a Person Suicidal Ideation Description None,Vague Suicide Plan Description No Plan Tobacco & Substance use: Tobacco type cannabis/marijuana Smoking Status Former smoker alcohol intake former alcohol intake frequency 3 or more drinks per day Substance Use Type marijuana Meds Home Medications and Allergies Home Medications Medication Instructions Recorded Confirmed Type aspirin 81 mg tablet,delayed 81 mg PO DAILY 12/17/19 04/12/21 History release (Adult Low Dose Aspirin) blood sugar diagnostic (True #400 each 03/07/20 04/11/21 Rx Metrix Glucose Test Strip) blood-glucose meter (True Metrix #1 each 03/07/20 04/11/21 Rx Glucose Meter) lancets #400 each 03/07/20 04/11/21 Rx levothyroxine 200 mcg tablet 200 mcg PO DAILY #90 tab 12/10/20 04/12/21 Rx metformin 1,000 mg tablet 1,000 mg PO BID #180 tab 12/19/20 04/12/21 Rx omeprazole 20 mg capsule,delayed 20 mg PO DAILY #90 cap 12/19/20 04/12/21 Rx release furosemide 40 mg tablet 40 mg PO DAILY #90 tab 02/23/21 04/12/21 Rx pravastatin 20 mg tablet 20 mg PO BEDTIME #90 tab 03/01/21 04/12/21 Rx liothyronine 5 mcg tablet 10 mcg PO DAILY #180 tab 04/20/21 Rx nadolol 40 mg tablet 40 mg PO DAILY #90 tab 04/26/21 Rx sertraline 50 mg tablet 50 mg PO DAILY #90 tab 05/13/21 Rx asenapine maleate 5 mg sublingual 5 mg SUBLINGUAL BID #60 tab 05/15/21 Rx tablet (Saphris) hydroxyzine HCl 50 mg tablet 50 mg PO TID PRN #90 tab 05/20/21 Rx Allergies Allergy/AdvReac Type Severity Reaction Status Date / Time Penicillins [PENICILLINS] Allergy Intermediate Swelling Verified 05/31/21 13:41 of Lip/Tongue/Throat Sulfa (Sulfonamide Allergy Intermediate Rash Verified 05/31/21 13:41 Antibiotics) [SULFA (SULFONAMIDE ANTIBIOTICS)] sulfamethoxazole Allergy Intermediate Rash Verified 05/31/21 13:41 [From Bactrim] trimethoprim [From Bactrim] Allergy Intermediate Rash Verified 05/31/21 13:41 Review of Systems Review of Systems Narrative: 14 systems reviewed and negative aside from what is noted in HPI Exam Vital Signs (past 8 hours): - 05/31/21 13:31 05/31/21 13:35 05/31/21 14:00 Temperature 98.5 F Pulse Rate 68 65 64 Respiratory Rate 14 Blood Pressure 150/80 H 123/64 Pulse Oximetry 96 96 96 05/31/21 14:30 05/31/21 15:00 05/31/21 15:16 Temperature Pulse Rate 63 63 64 Respiratory Rate 18 Blood Pressure 112/67 125/77 Pulse Oximetry 95 97 97 05/31/21 15:30 05/31/21 16:00 05/31/21 16:30 Temperature Pulse Rate 62 61 67 Respiratory Rate Blood Pressure 123/68 121/76 Pulse Oximetry 98 98 96 05/31/21 17:03 Temperature 97.6 F Pulse Rate 63 Respiratory Rate 16 Blood Pressure 123/64 Pulse Oximetry 98 Oxygen Delivery Method Room Air Narrative Exam Narrative: GEN: no acute distress HEENT: moist mucous membranes, PERRL NECK: trachea midline, no JVD CV: regular rate and rhythm, no murmurs PULM: clear bilaterally, no wheezes, rhonchi, rales ABD: soft, nontender, nondistended, no organomegaly EXT: warm and well perfused with no edema NEURO: awake alert oriented, with no focal deficits, mildly shaky PSYCH: pleasant, cooperative Objective Labs Result Diagrams: 05/31/21 17:08 05/31/21 13:43 Labs: Laboratory Results - last 24 hr 05/31/21 05/31/21 05/31/21 13:43 13:43 13:43 WBC 12.5 H RBC 5.21 H Hgb 13.5 Hct 39.6 MCV 76.0 L MCH 26.0 MCHC 34.2 RDW 16.5 H Plt Count 358 Neut % (Auto) 69.1 Lymph % (Auto) 23.6 L [place] % (Auto) 5.8 Eos % (Auto) 0.3 L Baso % (Auto) 1.2 Neut # (Auto) 8700 H Lymph # (Auto) 3000 [place] # (Auto) 700 Eos # (Auto) 0 Baso # (Auto) 200 H Sodium 125 L Potassium 3.7 Chloride 82 L Carbon Dioxide 29 BUN 4 L Creatinine 0.44 L Estimated GFR > 60.0 BUN/Creatinine Ratio 9.1 Glucose 197 H Calcium 9.6 Total Bilirubin 0.6 AST 42 H ALT 36 H Alkaline Phosphatase 111 Total Protein 8.7 H Albumin 4.9 Globulin 3.8 Albumin/Globulin Ratio 1.3 TSH 0.057 L Free T4 2.15 Urine Color Urine Appearance Urine pH Ur Specific [place] Urine Protein Urine Glucose (UA) Urine Ketones Urine Occult Blood Urine Nitrate Urine Bilirubin Urine Urobilinogen Ur Leukocyte Esterase Urine RBC Urine WBC Ur Squamous Epith Cells Urine Bacteria Ur Culture Indicated? Urine Test Salicylates < 1.0 U Opiates 300ng/mL cut Ur Oxycodone Screen Urine Methadone Screen Acetaminophen < 10 L Ur Barbiturates Screen U Tricyclic Antidepress Ur Phencyclidine Scrn Ur Amphetamines Screen U Methamphetamines Scrn Ur MDMA Scrn (Ecstasy) U Benzodiazepines Scrn Urine Cocaine Screen U Marijuana (THC) Screen Ethyl Alcohol 184 H SARS-CoV-2 (PCR) 05/31/21 05/31/21 05/31/21 13:51 13:51 13:51 WBC RBC Hgb Hct MCV MCH MCHC RDW Plt Count Neut % (Auto) Lymph % (Auto) [place] % (Auto) Eos % (Auto) Baso % (Auto) Neut # (Auto) Lymph # (Auto) [place] # (Auto) Eos # (Auto) Baso # (Auto) Sodium Potassium Chloride Carbon Dioxide BUN Creatinine Estimated GFR BUN/Creatinine Ratio Glucose Calcium Total Bilirubin AST ALT Alkaline Phosphatase Total Protein Albumin Globulin Albumin/Globulin Ratio TSH Free T4 Urine Color Yellow Urine Appearance Clear Urine pH 5.5 Ur Specific [place] <=1.005 Urine Protein Negative Urine Glucose (UA) Trace H Urine Ketones Negative Urine Occult Blood Trace-intact Urine Nitrate Negative Urine Bilirubin Negative Urine Urobilinogen 0.2 Ur Leukocyte Esterase Negative Urine RBC 1-5/hpf Urine WBC None seen Ur Squamous Epith Cells 1-5 /hpf Urine Bacteria None seen Ur Culture Indicated? Cult not indicated Urine Test Negative Salicylates U Opiates 300ng/mL cut Negative Ur Oxycodone Screen Negative Urine Methadone Screen Negative Acetaminophen Ur Barbiturates Screen Negative U Tricyclic Antidepress Negative Ur Phencyclidine Scrn Negative Ur Amphetamines Screen Negative U Methamphetamines Scrn Negative Ur MDMA Scrn (Ecstasy) Negative U Benzodiazepines Scrn Negative Urine Cocaine Screen Negative U Marijuana (THC) Screen Positive H Ethyl Alcohol SARS-CoV-2 (PCR) 05/31/21 05/31/21 14:54 17:08 WBC 8.6 RBC 4.99 Hgb 12.9 Hct 37.9 MCV 76.0 L MCH 25.9 L MCHC 34.1 RDW 16.1 H Plt Count 275 Neut % (Auto) 55.9 Lymph % (Auto) 37.4 [place] % (Auto) 5.4 Eos % (Auto) 0.4 L Baso % (Auto) 0.9 Neut # (Auto) 4800 Lymph # (Auto) 3200 [place] # (Auto) 500 Eos # (Auto) 0 Baso # (Auto) 100 Sodium Potassium Chloride Carbon Dioxide BUN Creatinine Estimated GFR BUN/Creatinine Ratio Glucose Calcium Total Bilirubin AST ALT Alkaline Phosphatase Total Protein Albumin Globulin Albumin/Globulin Ratio TSH Free T4 Urine Color Urine Appearance Urine pH Ur Specific [place] Urine Protein Urine Glucose (UA) Urine Ketones Urine Occult Blood Urine Nitrate Urine Bilirubin Urine Urobilinogen Ur Leukocyte Esterase Urine RBC Urine WBC Ur Squamous Epith Cells Urine Bacteria Ur Culture Indicated? Urine Test Salicylates U Opiates 300ng/mL cut Ur Oxycodone Screen Urine Methadone Screen Acetaminophen Ur Barbiturates Screen U Tricyclic Antidepress Ur Phencyclidine Scrn Ur Amphetamines Screen U Methamphetamines Scrn Ur MDMA Scrn (Ecstasy) U Benzodiazepines Scrn Urine Cocaine Screen U Marijuana (THC) Screen Ethyl Alcohol SARS-CoV-2 (PCR) Negative Assessment & Plan Assessment & Plan narrative: MS. Burch is a 51W with PMH EtOH cirrhosis, with active alcohol abuse who presents with alcohol withdrawal. 1. EtoH withdrawal and alcohol abuse -order [facility] protocol -phenobarb prn for replacement, has been given total 390mg IV, can give up to 750mg IV before becoming more careful about total dose (calculated as pt ideal body 50kg, 15mg/kg) -order MVI, thiamine, folate - for resources to quit -avoid dosing both phenobarb and benzos 2. Hyponatremia -patient appears near euvolemia -she acknowledges eating very poorly -asymptomatic currently -likely beer potomania, in setting of drinking -encourage improved nutrition -dietary consult 2. Hypothyroidism -continue cytomel, synthroid 3. EtOH cirrhosis with known varices -continue nadolol, hold any diuretics 4. Bipolar disorder -continue saphris 5. Depression -continue sertraline 6. Type 2 Diabetes -hold metformin -ordered for low dose insulin sliding scale 7. Presume hypertension -hold lisinopril Code: Full, proxy is Vitor I have utilized all available resources to reconcile the patient's home medications. Time Spent With Patient Critical Care time: I spent a total of [] minutes of critical care time on this patient's care today; this time is exclusive of procedural time. Quality VTE Deep Vein Thrombosis/Pulmonary Embolism Present on Admission: No MIPS - Admit I confirm the patient?s Advance Care Plan is present, Code status is documented, Surrogate decision maker is in patient?s record [If Yes, STOP here]: Yes
[2021-05-31] MEDS: PHENobarbital 65 MG/ML VIAL IV (18:10)
[2021-05-31] MEDS: SODIUM CHLORIDE 0.9% IV ×2 (20:39→23:47)
[2021-05-31] MEDS: PHENOBARBITAL IV ×2 (20:39→23:47)
[2021-05-31] MEDS: PRAVASTATIN 20 MG TABLET PO (21:27)
[2021-05-31] MEDS: METFORMIN HCL 500 MG TABLET 1000 MG PO (21:27)
[2021-06-01] MEDS: PHENOBARBITAL IV ×5 (04:41→20:13)
[2021-06-01] MEDS: SODIUM CHLORIDE 0.9% IV ×5 (04:41→20:13)
[2021-06-01 04:43] VITALS: BP 152/72; PULSE 67; RESP 16; TEMP 37.1; O2SAT 98
[2021-06-01] MEDS: LEVOTHYROXINE 100 MCG TABLET 200 MCG PO (06:58)
[2021-06-01 07:07] LABS: Alanine Aminotransferase 34 IU/L (<35); Albumin Globulin Ratio 1.3 (1.0-2.8); Alkaline Phosphatase 104 U/L (38-126); Aspartate Aminotransferase 46 IU/L (14-36); BUN Creatinine Ratio 18.2 (6-22); Bilirubin Total 0.8 mg/dL (0.2-1.3); Blood Urea Nitrogen 10 mg/dL (7-17); Calcium 9.8 mg/dL (8.4-10.2); Carbon Dioxide 36 mmol/L (22-32); Chloride 89 mmol/L (98-107); Estimated Glomerular Filt Rate > 60.0 mL/min (>60); Globulin 3.2 g/dL (1.7-4.1); Glucose 159 mg/dL (70-100); HEMOLYSIS < 15 (0-50); Potassium 3.6 mmol/L (3.4-5.1); Sodium 129 mmol/L (137-145); Total Protein 7.2 g/dL (6.3-8.2)
--- NOTE | 2021-06-01 07:52 | PM.PN.1 ---
Subjective Subjective Date Patient Seen: 06/01/21 Interval history: She is seen today to follow-up her alcohol withdrawal, hyponatremia and low TSH. She is complaining of feeling ?gassy. ? She is requesting simethicone. An x-ray of her abdomen will be done. She tells me that she has a chronic right footdrop related to prior back surgeries. Her sodium level remains low at 129 with otherwise normal electrolytes and renal function. Her glucose is 159 with a phosphorus of 5.0 and AST mildly elevated at 46. The TSH is suppressed at 0.057. She is also experiencing what appears to be impetigo in the right nasal introitus. Exam Vital Signs (past 8 hours): - 06/01/21 04:43 Temperature 98.7 F Pulse Rate 67 Respiratory Rate 16 Blood Pressure 152/72 H Pulse Oximetry 98 Oxygen Delivery Method Room Air Narrative Exam Narrative: She is alert and oriented x3. No apparent distress Heart is regular rate and rhythm without murmur Lungs are clear to auscultation bilaterally Extremities have no ankle edema Abdomen is soft, bowel sounds positive, nontender, obese, no organomegaly She has a longstanding right-sided footdrop with normal foot function on the left side. Skin: At the inferior aspect of the right nasal introitus there is an area of inflammation and 2 very small lesions that do not appear to be shingles, herpes or abscesses. Objective Labs Result Diagrams: 05/31/21 17:08 06/01/21 06:30 Labs: Laboratory Results - last 24 hr 05/31/21 05/31/21 05/31/21 13:43 13:43 13:43 WBC 12.5 H RBC 5.21 H Hgb 13.5 Hct 39.6 MCV 76.0 L MCH 26.0 MCHC 34.2 RDW 16.5 H Plt Count 358 Neut % (Auto) 69.1 Lymph % (Auto) 23.6 L [place] % (Auto) 5.8 Eos % (Auto) 0.3 L Baso % (Auto) 1.2 Neut # (Auto) 8700 H Lymph # (Auto) 3000 [place] # (Auto) 700 Eos # (Auto) 0 Baso # (Auto) 200 H Sodium 125 L Potassium 3.7 Chloride 82 L Carbon Dioxide 29 BUN 4 L Creatinine 0.44 L Estimated GFR > 60.0 BUN/Creatinine Ratio 9.1 Glucose 197 H Calcium 9.6 Phosphorus Magnesium Total Bilirubin 0.6 AST 42 H ALT 36 H Alkaline Phosphatase 111 Total Protein 8.7 H Albumin 4.9 Globulin 3.8 Albumin/Globulin Ratio 1.3 TSH 0.057 L Free T4 2.15 Urine Color Urine Appearance Urine pH Ur Specific [place] Urine Protein Urine Glucose (UA) Urine Ketones Urine Occult Blood Urine Nitrate Urine Bilirubin Urine Urobilinogen Ur Leukocyte Esterase Urine RBC Urine WBC Ur Squamous Epith Cells Urine Bacteria Ur Culture Indicated? Urine Test Salicylates < 1.0 U Opiates 300ng/mL cut Ur Oxycodone Screen Urine Methadone Screen Acetaminophen < 10 L Ur Barbiturates Screen U Tricyclic Antidepress Ur Phencyclidine Scrn Ur Amphetamines Screen U Methamphetamines Scrn Ur MDMA Scrn (Ecstasy) U Benzodiazepines Scrn Urine Cocaine Screen U Marijuana (THC) Screen Ethyl Alcohol 184 H SARS-CoV-2 (PCR) 05/31/21 05/31/21 05/31/21 13:51 13:51 13:51 WBC RBC Hgb Hct MCV MCH MCHC RDW Plt Count Neut % (Auto) Lymph % (Auto) [place] % (Auto) Eos % (Auto) Baso % (Auto) Neut # (Auto) Lymph # (Auto) [place] # (Auto) Eos # (Auto) Baso # (Auto) Sodium Potassium Chloride Carbon Dioxide BUN Creatinine Estimated GFR BUN/Creatinine Ratio Glucose Calcium Phosphorus Magnesium Total Bilirubin AST ALT Alkaline Phosphatase Total Protein Albumin Globulin Albumin/Globulin Ratio TSH Free T4 Urine Color Yellow Urine Appearance Clear Urine pH 5.5 Ur Specific [place] <=1.005 Urine Protein Negative Urine Glucose (UA) Trace H Urine Ketones Negative Urine Occult Blood Trace-intact Urine Nitrate Negative Urine Bilirubin Negative Urine Urobilinogen 0.2 Ur Leukocyte Esterase Negative Urine RBC 1-5/hpf Urine WBC None seen Ur Squamous Epith Cells 1-5 /hpf Urine Bacteria None seen Ur Culture Indicated? Cult not indicated Urine Test Negative Salicylates U Opiates 300ng/mL cut Negative Ur Oxycodone Screen Negative Urine Methadone Screen Negative Acetaminophen Ur Barbiturates Screen Negative U Tricyclic Antidepress Negative Ur Phencyclidine Scrn Negative Ur Amphetamines Screen Negative U Methamphetamines Scrn Negative Ur MDMA Scrn (Ecstasy) Negative U Benzodiazepines Scrn Negative Urine Cocaine Screen Negative U Marijuana (THC) Screen Positive H Ethyl Alcohol SARS-CoV-2 (PCR) 05/31/21 05/31/21 06/01/21 14:54 17:08 06:30 WBC 8.6 RBC 4.99 Hgb 12.9 Hct 37.9 MCV 76.0 L MCH 25.9 L MCHC 34.1 RDW 16.1 H Plt Count 275 Neut % (Auto) 55.9 Lymph % (Auto) 37.4 [place] % (Auto) 5.4 Eos % (Auto) 0.4 L Baso % (Auto) 0.9 Neut # (Auto) 4800 Lymph # (Auto) 3200 [place] # (Auto) 500 Eos # (Auto) 0 Baso # (Auto) 100 Sodium 129 L Potassium 3.6 Chloride 89 L Carbon Dioxide 36 H BUN 10 Creatinine 0.55 Estimated GFR > 60.0 BUN/Creatinine Ratio 18.2 Glucose 159 H Calcium 9.8 Phosphorus 5.0 H Magnesium 2.0 Total Bilirubin 0.8 AST 46 H ALT 34 Alkaline Phosphatase 104 Total Protein 7.2 Albumin 4.0 Globulin 3.2 Albumin/Globulin Ratio 1.3 TSH Free T4 Urine Color Urine Appearance Urine pH Ur Specific [place] Urine Protein Urine Glucose (UA) Urine Ketones Urine Occult Blood Urine Nitrate Urine Bilirubin Urine Urobilinogen Ur Leukocyte Esterase Urine RBC Urine WBC Ur Squamous Epith Cells Urine Bacteria Ur Culture Indicated? Urine Test Salicylates U Opiates 300ng/mL cut Ur Oxycodone Screen Urine Methadone Screen Acetaminophen Ur Barbiturates Screen U Tricyclic Antidepress Ur Phencyclidine Scrn Ur Amphetamines Screen U Methamphetamines Scrn Ur MDMA Scrn (Ecstasy) U Benzodiazepines Scrn Urine Cocaine Screen U Marijuana (THC) Screen Ethyl Alcohol SARS-CoV-2 (PCR) Negative [facility] Medical History Anxiety Avascular necrosis of bone of hip Bipolar disorder Chicken pox Chlamydia (~1988) Cirrhosis Colon polyp COPD (chronic obstructive pulmonary disease) Depression Esophageal varices Esophageal web Hayfever Hemorrhoids Hypothyroidism (1997) Irregular periods/menstrual cycles MRSA infection Pancytopenia Papillary adenocarcinoma of thyroid Seizures Shoulder pain Substance abuse Surgical History Anesthesia complication History of adenoidectomy History of bunionectomy History of dilation and curettage History of esophageal surgery (2016) History of left hip replacement (08/2017) History of placement of ear tubes History of right hip replacement (11/2017) History of tonsillectomy History of total thyroidectomy (1997) Family History Father No problems noted. Mother Depression Hyperlipidemia Thyroid disorder Mental health problem Brother No problems noted. Grandfather Lung cancer Cancer Grandmother Thyroid disorder Potassium disorder Hyperlipidemia Hypertension Grandfather No problems noted. Grandmother No problems noted. Family/Other No problems noted. Social History household members: significant other Smoking Status: Former smoker alcohol intake: former substance use type: does not use eating out: rarely or never Type(s) of exercise: none Assessment & Plan Assessment & Plan narrative: MS. Burch is a 51W with PMH EtOH cirrhosis, with active alcohol abuse who presents with alcohol withdrawal. 1. EtoH withdrawal and alcohol abuse -continue [facility] protocol -phenobarb prn for replacement, has been given total 390mg IV, can give up to 750mg IV before becoming more careful about total dose (calculated as pt ideal body 50kg, 15mg/kg) -continue MVI, thiamine, folate -SW for resources to quit -avoid dosing both phenobarb and benzos 2. Hyponatremia -patient appears near euvolemia -she acknowledges eating very poorly -asymptomatic currently -likely beer potomania, in setting of drinking -encourage improved nutrition -dietary consult 2. Hypothyroidism -continue cytomel, synthroid -TSH suppressed at 0.057, adjust Synthroid dose. 3. EtOH cirrhosis with known varices -continue nadolol, hold any diuretics 4. Bipolar disorder -continue saphris 5. Depression -continue sertraline 6. Type 2 Diabetes -hold metformin -low dose insulin sliding scale 7. Presumed hypertension -holding lisinopril 9. Nasal Impetigo -Bactroban ointment BID Code: Full, proxy is Vitor Time Spent With Patient Critical Care time: I spent a total of [] minutes of critical care time on this patient's care today; this time is exclusive of procedural time. Quality VTE Deep Vein Thrombosis/Pulmonary Embolism Present on Admission: No
[2021-06-01 07:55] VITALS: BP 121/63; PULSE 63; RESP 16; TEMP 36.2; O2SAT 95
[2021-06-01] MEDS: ENOXAPARIN 40 MG/0.4 ML SYRINGE SUBCUT (08:29)
[2021-06-01] MEDS: THIAMINE 100 MG TABLET PO (08:29)
[2021-06-01] MEDS: MULTIVITAMIN 1 TABLET 1 TAB PO (08:29)
[2021-06-01] MEDS: LIOTHYRONINE 5 MCG TABLET 10 MCG PO (08:29)
[2021-06-01] MEDS: SERTRALINE 50 MG TABLET PO (08:29)
[2021-06-01] MEDS: FOLIC ACID 1 MG TABLET PO (08:29)
[2021-06-01] MEDS: METFORMIN HCL 500 MG TABLET 1000 MG PO ×2 (08:30→20:05)
[2021-06-01] MEDS: INSULIN LISPRO 100 UNIT/ML 3ML VIAL SUBCUT (09:06)
--- NOTE | 2021-06-01 09:38 | DI.RAD.S_ITS ---
PROCEDURE: XR ABDOMEN MIN 2V INDICATIONS: Increased Gaseous feeling TECHNIQUE: 2 views of the abdomen were acquired. COMPARISON: [facility], CT, CT ABDOMEN WO/W CON, 04/11/2021, 8:49. FINDINGS: Surgical changes and devices: There is bilateral hip arthroplasty hardware. Bowel: No pneumoperitoneum. No dilated loops of large and small bowel can be seen. However, generalized gaseous prominence of the large and small bowel can be seen. Soft tissues: No masses; visualized solid organ contours appear normal in size. No suspicious abdominal calcifications. Bones: No suspicious bony abnormalities. Age-appropriate bony degenerative changes are seen. IMPRESSION: A nonobstructive bowel gas pattern is seen. If clinically appropriate, please consider a repeat plain film study or a dedicated CT of the abdomen and pelvis, if the patient's symptoms persist or worsen. Dictated by: Irwin Mejia M.D. on 06/01/2021 at 9:18 Approved by: Irwin Mejia M.D. on 06/01/2021 at 9:20
[2021-06-01 10:52] VITALS: O2SAT 95
[2021-06-01] MEDS: MUPIROCIN 22 GM OINT 1 APPLIC TOP ×2 (14:42→20:05)
--- NOTE | 2021-06-01 15:41 | CM.IDA ---
Initial DCP Assessment Note 51 yo female, resident of [place], admitted for ETOh w/d. According to Dr Martinez, may be here for an additional 48-72 hrs. PCP: Miguel Ángel Leary Payer: Henri/VOLODYMYR See SPRAY GUN STRIPER/ JASMIN Assessment below. Needs f/u. In addition, SPRAY GUN STRIPER to return to bedside to assess for SI/HI Jennifer Carranza, SPRAY GUN STRIPER Discharge Planning/Care Management SPRAY GUN STRIPER - Women'S Apparel Salesperson Assessment Start: 06/01/21 15:23 Freq: Status: Active Protocol: Document 06/01/21 15:23 FRANKIE (Rec: 06/01/21 15:41 FRANKIE [id number]) SPRAY GUN STRIPER/Women'S Apparel Salesperson Assessment Presenting Problem H+P Narrative: Ms. Burch is a 50W with PMH Type 2 DM, EtOH cirrhosis with esophageal varices s/p banding, etoh seizures, thyroid cancer s/p thyroidectomy, bipolar, depression who presents for request to detox from alcohol. She states she had been sober from alcohol for over a year, however she started drinking one month ago due to personal stress. She has been drinking 30 beers every 1.5 days. Last drink before coming in to the hospital. She has had withdrawal seizures in the past requiring intubation. She comes to the hospital because she wants to quite drinking. Precipitating Event(s) According to patient, she was allowed to see her 19 yo dtr in [place] recently, first time in 3 years, and had a very difficult time processing this visit and coping upon her return to [place] Patient Strengths Survivor. Admits to surviving multiple traumas, having a strong family hx of alcholism, has a dx of Boderline Bipolar Disorder as well as Borderline Personality Disorder on top of multiple medical complications; yet still able to have a meanginful relationship w/her boyfriend and remain sober for at least on year. Patient shows good insight into the severity of her dependnce on ETOH and severity of the disease process Current Behavioral Health Provider(s) None Include Facility, Provider, Ph. # Family Hx of Behavioral Abuse Yes Rehab Facilities? ((Date(s), Location(s) [place] facilities; dual dx ) facility and rehab for ETOH History of Withdrawal? Seizures? Yes, seizure and intubation Longest Period of Sobriety Recently, one year on and off Psychosocial information & Support Lives w/boyfriend in [employer] , he works multimedia engineer in [place] (commutes). BF drinks very rarely and patient describes this relationship as supportive and loving, patient feels safe with this partner. Patient has an ex and 19 yo dtr that live in [place] Patient has a mother living in [place] that can assist w/ transportation but is not of emotional help to her School/Work Currently not working. Patient states she has drop foot and finds it difficult to ambulate long distances d/t hx of hip surgeries, but able to manage all ADLs indp. Patient may qualify for disability benefits...if she has a work hx (?) Legal Matters - Outstanding Issues None reported Orientation (Person/Place/Time) Oriented Stated Mood Carl Affect (Congruent with Mood?) Tearful but states optimistic about change, hoeful Thought Content - Specify/Describe WNL Obsessions, Delusions, Hallucinations Thought Processes (Vcozdlt-Svbcvuuo-Pfsn WNL Hwywftop-Jufapzuu-Tohumhhixr- Asffwkcfdmjnru-Boqaoni-Hfsnxcemeujt- Thought Blocking) Speech (Jimxkp-Nogp-Eprvaqh-Rapid-Soft- WNL Loud-Pressured) Motor (Oqsfhg-Eilqblbsc-Cvcq-Other) WNL Insight (Wgwe-Zvyx-Snhs/Limited) Good Judgement (Nqcl-Wugf-Uxll/Limited) Good Impulse Control (Adequate-Impaired) Impaired. Admits she cannot control herself when she begins to drink. Often will call a taxi to take her to buy alcohol because her mom and bf will no longer buy Memory (Wlrbswulo-Qebvkr-Oiddvu, Intact Impaired-Intact) Concentration (Intact-Impaired) Intact Attention (Intact-Impaired) Intact Behavior (Appropriate-Inappropriate) WNL Additional Comment Patient is forthcoming w/ information today and appears and sounds optimistic re: sobriety and recovery. Patient is motivated to stop drinking and remain sober in order to keep the relationships she cares about- namely that w/her dtr and partner. Patient is open to inpatient rehab as well as IOP and/or outpatient counseling and admits I have lived through a lot, I need help coping Patient's greates concern in sustaining treatment is transportation since bf commutes daily back/forth from [place] and has his children every other weekend Suicidal Ideation (Plan) Did not assess Homicidal Ideation (Plan) Did not assess Comment Need to return to assess for SI/HI Intervention This SPRAY GUN STRIPER will need to hand off further efforts to oncoming SPRAY GUN STRIPER 06.02. RA Plan Patient would benefit from referral to [facility], Natalie Cheung# [phone] for D /A assessment. Patient may not be a good candidate for PCN but may be a great candidate for [facility] in [place]. Patient would also benefit from leaving w/a list of resources to begin calls immediately upon her DC (or before) to secure an appt w/ trauma and addiction counseling....[facility] would be very helpful but unfortunetely are only taking [place] members and women at this time. Strongly encouraged patient to call them regularly in case this changes
[2021-06-01 16:55] VITALS: BP 104/40; PULSE 63; RESP 16; TEMP 36.2; O2SAT 96
[2021-06-01 19:00] VITALS: O2SAT 96
[2021-06-01 19:58] VITALS: BP 125/69; PULSE 69; RESP 18; TEMP 36.2; O2SAT 98
[2021-06-01] MEDS: PRAVASTATIN 20 MG TABLET PO (20:05)
[2021-06-02] VITALS (8 sets, daily range): BP systolic 102–126; BP diastolic 59–94; PULSE 61–119; RESP 16; TEMP 35.5–36.6; O2SAT 91–96
[2021-06-02] MEDS: SODIUM CHLORIDE 0.9% IV ×5 (02:17→19:46)
[2021-06-02] MEDS: PHENOBARBITAL IV ×5 (02:17→19:46)
[2021-06-02] MEDS: ONDANSETRON 4 MG/2 ML INJ IV (02:40)
[2021-06-02] MEDS: LEVOTHYROXINE 100 MCG TABLET 200 MCG PO (05:55)
[2021-06-02 09:49] LABS: Alanine Aminotransferase 42 IU/L (<35); Albumin 3.7 g/dL (3.5-5.0); Albumin Globulin Ratio 1.3 (1.0-2.8); Alkaline Phosphatase 110 U/L (38-126); Aspartate Aminotransferase 54 IU/L (14-36); BUN Creatinine Ratio 11.3 (6-22); Bilirubin Total 0.6 mg/dL (0.2-1.3); Blood Urea Nitrogen 6 mg/dL (7-17); Carbon Dioxide 32 mmol/L (22-32); Chloride 93 mmol/L (98-107); Estimated Glomerular Filt Rate > 60.0 mL/min (>60); Globulin 2.8 g/dL (1.7-4.1); Glucose 202 mg/dL (70-100); HEMOLYSIS < 15 (0-50); Potassium 3.6 mmol/L (3.4-5.1); Sodium 130 mmol/L (137-145); Total Protein 6.5 g/dL (6.3-8.2)
[2021-06-02] MEDS: ENOXAPARIN 40 MG/0.4 ML SYRINGE SUBCUT (11:11)
[2021-06-02] MEDS: MULTIVITAMIN 1 TABLET 1 TAB PO (11:12)
[2021-06-02] MEDS: LIOTHYRONINE 5 MCG TABLET 10 MCG PO (11:12)
[2021-06-02] MEDS: METFORMIN HCL 500 MG TABLET 1000 MG PO ×2 (11:12→21:42)
[2021-06-02] MEDS: SERTRALINE 50 MG TABLET PO (11:12)
[2021-06-02] MEDS: FOLIC ACID 1 MG TABLET PO (11:12)
[2021-06-02] MEDS: THIAMINE 100 MG TABLET PO (11:12)
[2021-06-02] MEDS: MUPIROCIN 22 GM OINT 1 APPLIC TOP ×2 (11:13→21:41)
[2021-06-02] MEDS: INSULIN LISPRO 100 UNIT/ML 3ML VIAL SUBCUT ×2 (13:25→18:28)
--- NOTE | 2021-06-02 14:58 | PM.PN.1 ---
Subjective Subjective Date Patient Seen: 06/02/21 Time Patient Seen: 08:00 Interval history: She looks to me that she is withdrawing slightly more than previously. She says the phenobarb has worked better than other options she has taken for withdrawal in the past. She is mildly tremulous, feels sweaty but does not feel so. She looks fatigued. She has no tachycardia which is reassuring. Exam Vital Signs (past 8 hours): - 06/02/21 08:00 06/02/21 11:33 06/02/21 12:00 Temperature 96 F L 96.4 F L Pulse Rate 61 65 Respiratory Rate 16 16 Blood Pressure 114/59 L 119/72 Pulse Oximetry 96 96 93 Oxygen Delivery Method Room Air Oxygen Flow Rate 0 Narrative Exam Narrative: She is alert and oriented x3.? No apparent distress Heart is regular rate and rhythm without murmur Lungs are clear to auscultation bilaterally Extremities have no ankle edema Abdomen is soft, bowel sounds positive, nontender, obese, no organomegaly She has a longstanding right-sided footdrop with normal foot function on the left side.? Skin:? At the inferior aspect of the right nasal introitus there is an area of inflammation and 2 very small lesions that do not appear to be shingles, herpes or abscesses. Objective Labs Result Diagrams: 05/31/21 17:08 06/02/21 09:00 Labs: Laboratory Results - last 24 hr 06/02/21 09:00 Sodium 130 L Potassium 3.6 Chloride 93 L Carbon Dioxide 32 BUN 6 L Creatinine 0.53 Estimated GFR > 60.0 BUN/Creatinine Ratio 11.3 Glucose 202 H Calcium 9.0 Total Bilirubin 0.6 AST 54 H ALT 42 H Alkaline Phosphatase 110 Total Protein 6.5 Albumin 3.7 Globulin 2.8 Albumin/Globulin Ratio 1.3 [facility] Medical History Anxiety Avascular necrosis of bone of hip Bipolar disorder Chicken pox Chlamydia (~1988) Cirrhosis Colon polyp COPD (chronic obstructive pulmonary disease) Depression Esophageal varices Esophageal web Hayfever Hemorrhoids Hypothyroidism (1997) Irregular periods/menstrual cycles MRSA infection Pancytopenia Papillary adenocarcinoma of thyroid Seizures Shoulder pain Substance abuse Surgical History Anesthesia complication History of adenoidectomy History of bunionectomy History of dilation and curettage History of esophageal surgery (2016) History of left hip replacement (08/2017) History of placement of ear tubes History of right hip replacement (11/2017) History of tonsillectomy History of total thyroidectomy (1997) Family History Father No problems noted. Mother Depression Hyperlipidemia Thyroid disorder Mental health problem Brother No problems noted. Grandfather Lung cancer Cancer Grandmother Thyroid disorder Potassium disorder Hyperlipidemia Hypertension Grandfather No problems noted. Grandmother No problems noted. Family/Other No problems noted. Social History household members: significant other Smoking Status: Former smoker alcohol intake: former substance use type: does not use eating out: rarely or never Type(s) of exercise: none Assessment & Plan Assessment & Plan narrative: MS. Burch is a 51W with PMH EtOH cirrhosis, with active alcohol abuse who presents with alcohol withdrawal. 1. EtoH withdrawal and alcohol abuse -continue CIWA protocol -phenobarb prn for replacement, has received approximately 1000mg phenobarb at ~12mg/kg, still within safe amounts -would continue with phenobarb prn, and be vigilant about patient developing respiratory depression or confusion -continue MVI, thiamine, folate -SW for resources to quit -avoid dosing both phenobarb and benzos 2. Hyponatremia -patient appears near euvolemia -she acknowledges eating very poorly -asymptomatic currently -likely beer potomania, in setting of drinking -encourage improved nutrition -dietary consult 2. Hypothyroidism -continue cytomel, synthroid -TSH suppressed at 0.057, adjust Synthroid dose. 3. EtOH cirrhosis with known varices -continue nadolol, hold any diuretics 4. Bipolar disorder -continue saphris 5. Depression -continue sertraline 6. Type 2 Diabetes -hold metformin -low dose insulin sliding scale 7. Presumed hypertension -holding lisinopril 9. Nasal Impetigo -Bactroban ointment BID Time Spent With Patient Critical Care time: I spent a total of [] minutes of critical care time on this patient's care today; this time is exclusive of procedural time. Quality VTE Deep Vein Thrombosis/Pulmonary Embolism Present on Admission: No
--- NOTE | 2021-06-02 15:33 | CM.DPC ---
DCP Cont JASMIN tx planning Per RN and MD, pt still in withdrawals and not medically stable to d/c today but appropriate for bedside discussion. SW met bedside with pt and explained role and she confirms the information she provided to SW yesterday regarding her hx of Inpt JASMIN tx in [place] many years ago and her constant struggle to remain sober. Pt confirms that she has two close friends that are sober and supportive that she feels comfortable with seeking assist and support. Pt again discusses one barrier to tx/appointments is transportation as pt does not drive. SW inquired about Medicaid transport and pt thinks she may have it and SW discussed how tomorrow Thu SW could call to confirm if she has transportation benefits which could assist with transport to doctor, dental, or JASMIN/MH appointments and pt would be very appreciative. Pt confirms that she feels she needs Inpt JASMIN tx at d/c to increase her likelihood of being successful with remaining sober. Pt states she is not a functioning alcoholic, when I'm drinking I can't function at all and all my focus is on having enough alcohol so that I do not start having DT's and go into withdrawal. SW provided the [facility] JASMIN tx provider list including [facility], [facility], [facility], etc.. in case needed at d/c (if Inpt tx not an option at d/c) or in the near future for ongoing support. Pt very thankful to know the resources available as pt has not been enrolled in any of the JASMIN agencies locally. Plan: SW to follow tomorrow Thursday morning with [facility] to determine if they can do bedside assessment for Inpt Tx vs plan of social detox and outpt tx at discharge. SW to contact Medicaid to determine if pt has Medicaid transport benefits. BEATRICE Rhodes
--- NOTE | 2021-06-02 20:08 | PC.NURSE ---
1998: a/o, voices needs. initial assessment completed at begin of shift. patient reports increased agitation, anxiety, tremors, sweating i feel as though i want to crawl out of my skin. PRN phenobarbitol IV hung for CIWA 9. assisted to bathroom w/ 1pa contact guard assist. patient reports foot drop after bilat hip replacements 4 years ago. gait is somewhat unsteady upon first glance, but she states that is normal for me to plod along. medium loose stool. wears pullups. able to perform own lalit-care after toileting. assisted back to bed, SCD's applied. face washed, w/ encouragement to wash nose well. ointment applied to R nare, which is dry, flaked & scabby w/ scant blood drainage. call light w/in reach. BA is on.
[2021-06-03] VITALS (11 sets, daily range): BP systolic 102–130; BP diastolic 50–67; PULSE 62–83; RESP 14–18; TEMP 35.9–36.7; O2SAT 92–100
[2021-06-03] MEDS: SODIUM CHLORIDE 0.9% IV ×4 (00:27→17:15)
[2021-06-03] MEDS: PHENOBARBITAL IV ×4 (00:27→17:15)
[2021-06-03] MEDS: LEVOTHYROXINE 100 MCG TABLET 200 MCG PO (05:26)
[2021-06-03] MEDS: ONDANSETRON 4 MG/2 ML INJ IV ×3 (05:41→17:39)
[2021-06-03 06:25] LABS: Hematocrit 33.5 % (36-46); Hemoglobin 11.1 g/dL (12.0-16.0); Mean Corpuscular Hemoglobin 25.9 PG (26-34); Mean Corpuscular Volume 78.4 fL (80-100); Platelet Count 174 X10^3/uL (150-400); Red Blood Cell Count 4.27 X10^6/uL (4.0-5.2); Red Cell Distribution Width 16.6 % (11.6-14.8); White Blood Cell Count 5.9 X10^3/uL (4.5-11.0)
[2021-06-03 06:30] LABS: Blood Urea Nitrogen 3 mg/dL (7-17); Calcium 9.2 mg/dL (8.4-10.2); Carbon Dioxide 35 mmol/L (22-32); Chloride 97 mmol/L (98-107); Estimated Glomerular Filt Rate > 60.0 mL/min (>60); Glucose 128 mg/dL (70-100); HEMOLYSIS < 15 (0-50); Potassium 3.5 mmol/L (3.4-5.1); Sodium 133 mmol/L (137-145)
[2021-06-03 06:31] LABS: Alanine Aminotransferase 43 IU/L (<35); Albumin 3.8 g/dL (3.5-5.0); Albumin Globulin Ratio 1.3 (1.0-2.8); Alkaline Phosphatase 110 U/L (38-126); Aspartate Aminotransferase 48 IU/L (14-36); Bilirubin Total 0.4 mg/dL (0.2-1.3); Bilirubin Unconjugated 0.4 mg/dL (0.0-1.1); HEMOLYSIS < 15 (0-50); Total Protein 6.8 g/dL (6.3-8.2)
[2021-06-03] MEDS: METFORMIN HCL 500 MG TABLET 1000 MG PO ×2 (10:29→20:38)
[2021-06-03] MEDS: MULTIVITAMIN 1 TABLET 1 TAB PO (10:29)
[2021-06-03] MEDS: POTASSIUM CHLORIDE 20 MEQ TAB 40 MEQ PO (10:29)
[2021-06-03] MEDS: ENOXAPARIN 40 MG/0.4 ML SYRINGE SUBCUT (10:29)
[2021-06-03] MEDS: SERTRALINE 50 MG TABLET PO (10:29)
[2021-06-03] MEDS: FOLIC ACID 1 MG TABLET PO (10:30)
[2021-06-03] MEDS: LIOTHYRONINE 5 MCG TABLET 10 MCG PO (10:30)
[2021-06-03] MEDS: SODIUM CHLORIDE 0.9% FLUSH 10 ML IV ×2 (10:59→20:37)
[2021-06-03] MEDS: LACTOBACILLUS ACIDOPHILUS TABLET 1 EACH PO ×2 (10:59→17:16)
[2021-06-03] MEDS: MUPIROCIN 22 GM OINT 1 APPLIC TOP ×2 (11:01→20:36)
--- NOTE | 2021-06-03 13:30 | CM.DPC ---
Addendum entered by Janine Norman 06/04/21 15:58: DCP/continued: Reviewed chart. Received call from [facility] Heat Treat Supervisor/Alecia # [phone] she reports that she has been assigned to patient for outpatient follow up. Transferred call into patient room so that they could communicate. RN reports that patient's CiWA today is 8-10. Patient actively in withdrawals. REINFORCING BAR SETTER attempted call to detox at [facility] this AM, they have no female bed. P:REINFORCING BAR SETTER to follow up with patient tomorrow when medically she is more stable. KJS Original Note: DCP Cont: Per MD, pt still in withdrawals and not medically stable for d/c yet and due to pt's medical comorbidities may not be safe for transfer to Medical Detox facility. ANNITA called [facility] and confirmed they no longer have the staff and availability to complete bedside JASMIN assessments and are not aware of any Inpt JASMIN tx facilities right now that complete their own JASMIN assessments at intake and therefore pt will likely need to go to Social Detox ([facility] or [facility] in [place]) and receive assist with assessment and Inpt ETOH tx. Or pt could d/c home when stable and schedule her own outpt assessment at any of the outpt JASMIN tx agencies provided to her yesterday by ANNITA although pt would greatly benefit from going right into treatment/social detox for assist with tx due to her withdrawal symptoms and high threshold for alcohol. SW also made referral to [facility] and confirmed that pt is actually been assigned to a CM Alecia who has had trouble contacting pt by phone but they are aware pt was admitted and will continue to attempt to start pt on [facility] services for additional assist in the community and establishing care. ANNITA called Medicaid transportation and confirmed pt has Medicaid transportation benefits that will increase pt's ability to get to PCP appointments and also JASMIN treatment appointments along with her need for dental f/u for dentures. Plan: SW to follow closely for attempt at meeting with pt bedside to update on Medicaid transport benefits, and to discuss social detox vs outpt tx at d/c. BEATRICE Rhodes
--- NOTE | 2021-06-03 13:31 | PM.PN.1 ---
Subjective Subjective Date Patient Seen: 06/03/21 Time Patient Seen: 08:00 Interval history: She appears comfortable, more energetic than yesterday. She still feels skin crawling. No tachycardia. She says phenobarbital works well for her symptoms Exam Vital Signs (past 8 hours): - 06/03/21 08:05 06/03/21 08:45 06/03/21 10:30 Temperature 97.6 F Pulse Rate 62 62 Respiratory Rate 16 Blood Pressure 106/56 L 106/56 L Pulse Oximetry 98 97 06/03/21 13:00 Temperature 97.7 F Pulse Rate 66 Respiratory Rate 16 Blood Pressure 129/67 Pulse Oximetry 94 Oxygen Delivery Method Room Air Oxygen Flow Rate 0 Narrative Exam Narrative: She is alert and oriented x3.? No apparent distress Heart is regular rate and rhythm without murmur Lungs are clear to auscultation bilaterally Extremities have no ankle edema Abdomen is soft, bowel sounds positive, nontender, obese, no organomegaly She has a longstanding right-sided footdrop with normal foot function on the left side.? Skin:? At the inferior aspect of the right nasal introitus there is an area of inflammation and 2 very small lesions that do not appear to be shingles, herpes or abscesses. Objective Labs Result Diagrams: 06/03/21 05:52 06/03/21 05:52 Labs: Laboratory Results - last 24 hr 06/03/21 06/03/21 06/03/21 05:52 05:52 05:52 WBC 5.9 RBC 4.27 Hgb 11.1 L Hct 33.5 L MCV 78.4 L MCH 25.9 L MCHC 33.0 RDW 16.6 H Plt Count 174 Sodium 133 L Potassium 3.5 Chloride 97 L Carbon Dioxide 35 H BUN 3 L Creatinine 0.50 L Estimated GFR > 60.0 BUN/Creatinine Ratio 6.0 Glucose 128 H Calcium 9.2 Total Bilirubin 0.4 Conjugated Bilirubin 0.0 Unconjugated Bilirubin 0.4 AST 48 H ALT 43 H Alkaline Phosphatase 110 Total Protein 6.8 Albumin 3.8 Globulin 3.0 Albumin/Globulin Ratio 1.3 [facility] Medical History Anxiety Avascular necrosis of bone of hip Bipolar disorder Chicken pox Chlamydia (~1988) Cirrhosis Colon polyp COPD (chronic obstructive pulmonary disease) Depression Esophageal varices Esophageal web Hayfever Hemorrhoids Hypothyroidism (1997) Irregular periods/menstrual cycles MRSA infection Pancytopenia Papillary adenocarcinoma of thyroid Seizures Shoulder pain Substance abuse Surgical History Anesthesia complication History of adenoidectomy History of bunionectomy History of dilation and curettage History of esophageal surgery (2016) History of left hip replacement (08/2017) History of placement of ear tubes History of right hip replacement (11/2017) History of tonsillectomy History of total thyroidectomy (1997) Family History Father No problems noted. Mother Depression Hyperlipidemia Thyroid disorder Mental health problem Brother No problems noted. Grandfather Lung cancer Cancer Grandmother Thyroid disorder Potassium disorder Hyperlipidemia Hypertension Grandfather No problems noted. Grandmother No problems noted. Family/Other No problems noted. Social History household members: significant other Smoking Status: Former smoker alcohol intake: former substance use type: does not use eating out: rarely or never Type(s) of exercise: none Assessment & Plan Assessment & Plan narrative: MS. Burch is a 51W with PMH EtOH cirrhosis, with active alcohol abuse who presents with alcohol withdrawal. 1. EtoH withdrawal and alcohol abuse -continue [facility] protocol -phenobarb prn for replacement, has received approximately 1430mg phenobarb at ~17-18mg/kg, will need to be careful with additional phenobarb -would continue with phenobarb prn, and be vigilant about patient developing respiratory depression or confusion -continue MVI, thiamine, folate -SW for resources to quit -avoid dosing both phenobarb and benzos 2. Hyponatremia -patient appears near euvolemia -she acknowledges eating very poorly -asymptomatic currently -likely beer potomania, in setting of drinking -encourage improved nutrition -dietary consult -sodium improving daily with improved nutrition 2. Hypothyroidism -continue cytomel, synthroid -TSH suppressed at 0.057, adjust Synthroid dose. 3. EtOH cirrhosis with known varices -continue nadolol, hold any diuretics 4. Bipolar disorder -continue saphris 5. Depression -continue sertraline 6. Type 2 Diabetes -hold metformin -low dose insulin sliding scale 7. Presumed hypertension -holding lisinopril 9. Nasal Impetigo -Bactroban ointment BID Time Spent With Patient Critical Care time: I spent a total of [] minutes of critical care time on this patient's care today; this time is exclusive of procedural time. Quality VTE Deep Vein Thrombosis/Pulmonary Embolism Present on Admission: No
--- NOTE | 2021-06-03 13:36 | DIET.CONS ---
Dietary Consultation Note Admission Date: 05/31/2021 15:26 Assessment: 51y F admitted for etoh withdrawl after relapsing 30d ago into etoh use referred to nutrition for same. Pt reports bad family news spurred relapse, pt seeking help to stop. Pt dx DM2 February 2020 with A1c 13. Pt started taking metformin 1,000mg daily and began DSME program with initial intake and Healthy Eating 1 class before dropping out of program, barriers include difficulty with transport. Pts A1c progressively lower with last value 6.4 prior to etoh relapse. Pt would like to continue DSME with virtual visits as part of her care plan in sobriety. Ht: 157.48 cm Wt: 80.739 kg BMI: 32.5 Last BM: 06/02/21 (06/02/21 20:00) MNA: 10 Jackson Score: 19 Diet: 05/31/21 Dinner Carbohydrate Consistent Diet Diet Modifications: Carbohydrate level: Medium (3 CHO) Nutrition Percent Meal Consumed 100% 06/02/21 09:35 Percent Meal Consumed 50% 06/01/21 17:50 Labs: RBC 4.27 X10^6/uL (4.0-5.2) 06/03/21 05:52 Hgb 11.1 g/dL (12.0-16.0) L 06/03/21 05:52 Hct 33.5 % (36-46) L 06/03/21 05:52 Creatinine 0.50 mg/dL (0.52-1.04) L 06/03/21 05:52 Monitoring/Evaluations: Power Marketer to call pt to schedule virtual visits upon d/c. Electronically Signed by: Citlaly Brown 06/03/21 13:36 Clinical Dietitian [address] [address]
[2021-06-04] VITALS (11 sets, daily range): BP systolic 104–132; BP diastolic 50–76; PULSE 64–72; RESP 18–19; TEMP 35.9–36.9; O2SAT 97–100
[2021-06-04] MEDS: SODIUM CHLORIDE 0.9% IV ×4 (00:11→15:08)
[2021-06-04] MEDS: PHENOBARBITAL IV ×4 (00:11→15:08)
[2021-06-04] MEDS: LEVOTHYROXINE 100 MCG TABLET 200 MCG PO (05:46)
[2021-06-04] MEDS: ONDANSETRON 4 MG/2 ML INJ IV (06:01)
[2021-06-04 06:45] LABS: Calcium 9.3 mg/dL (8.4-10.2); Carbon Dioxide 31 mmol/L (22-32); Chloride 100 mmol/L (98-107); Estimated Glomerular Filt Rate > 60.0 mL/min (>60); Glucose 117 mg/dL (70-100); HEMOLYSIS < 15 (0-50); Sodium 132 mmol/L (137-145)
[2021-06-04 06:53] LABS: BUN Creatinine Ratio 4.4 (6-22); Blood Urea Nitrogen 2 mg/dL (7-17)
[2021-06-04] MEDS: LIOTHYRONINE 5 MCG TABLET 10 MCG PO (08:28)
[2021-06-04] MEDS: ENOXAPARIN 40 MG/0.4 ML SYRINGE SUBCUT (08:28)
[2021-06-04] MEDS: SODIUM CHLORIDE 0.9% FLUSH 10 ML IV ×2 (08:28→20:26)
[2021-06-04] MEDS: SERTRALINE 50 MG TABLET PO (08:28)
[2021-06-04] MEDS: MULTIVITAMIN 1 TABLET 1 TAB PO (08:28)
[2021-06-04] MEDS: FOLIC ACID 1 MG TABLET PO (08:28)
[2021-06-04] MEDS: METFORMIN HCL 500 MG TABLET 1000 MG PO ×2 (08:28→20:25)
[2021-06-04] MEDS: LACTOBACILLUS ACIDOPHILUS TABLET 1 EACH PO ×2 (08:28→16:37)
[2021-06-04] MEDS: MUPIROCIN 22 GM OINT 1 APPLIC TOP ×2 (08:29→20:23)
[2021-06-04] MEDS: LORazepam 1 MG TABLET PO ×2 (17:36→20:32)
--- NOTE | 2021-06-04 17:55 | PM.PN.1 ---
Subjective Subjective Date Patient Seen: 06/04/21 Time Patient Seen: 08:00 Interval history: She feels as if she is withdrawing slightly more today. She thinks phenobarb is working very well for her. No evidence of sedation. Exam Vital Signs (past 8 hours): - 06/04/21 11:00 06/04/21 15:40 Temperature 98.4 F 98.2 F Pulse Rate 72 64 Respiratory Rate 18 19 Blood Pressure 129/76 123/69 Pulse Oximetry 97 98 Oxygen Delivery Method Room Air Oxygen Flow Rate 0 Narrative Exam Narrative: She is alert and oriented x3.? No apparent distress Heart is regular rate and rhythm without murmur Lungs are clear to auscultation bilaterally Extremities have no ankle edema Abdomen is soft, bowel sounds positive, nontender, obese, no organomegaly She has a longstanding right-sided footdrop with normal foot function on the left side.? Skin:? At the inferior aspect of the right nasal introitus there is an area of inflammation and 2 very small lesions that do not appear to be shingles, herpes or abscesses. Objective Labs Result Diagrams: 06/03/21 05:52 06/04/21 06:05 Labs: Laboratory Results - last 24 hr 06/04/21 06:05 Sodium 132 L Potassium 4.0 Chloride 100 Carbon Dioxide 31 BUN 2 L Creatinine 0.45 L Estimated GFR > 60.0 BUN/Creatinine Ratio 4.4 L Glucose 117 H Calcium 9.3 PFSH Medical History Anxiety Avascular necrosis of bone of hip Bipolar disorder Chicken pox Chlamydia (~1988) Cirrhosis Colon polyp COPD (chronic obstructive pulmonary disease) Depression Esophageal varices Esophageal web Hayfever Hemorrhoids Hypothyroidism (1997) Irregular periods/menstrual cycles MRSA infection Pancytopenia Papillary adenocarcinoma of thyroid Seizures Shoulder pain Substance abuse Surgical History Anesthesia complication History of adenoidectomy History of bunionectomy History of dilation and curettage History of esophageal surgery (2016) History of left hip replacement (08/2017) History of placement of ear tubes History of right hip replacement (11/2017) History of tonsillectomy History of total thyroidectomy (1997) Family History Father No problems noted. Mother Depression Hyperlipidemia Thyroid disorder Mental health problem Brother No problems noted. Grandfather Lung cancer Cancer Grandmother Thyroid disorder Potassium disorder Hyperlipidemia Hypertension Grandfather No problems noted. Grandmother No problems noted. Family/Other No problems noted. Social History household members: significant other Smoking Status: Former smoker alcohol intake: former substance use type: does not use eating out: rarely or never Type(s) of exercise: none Assessment & Plan Assessment & Plan narrative: MS. Burch is a 51W with PMH EtOH cirrhosis, with active alcohol abuse who presents with alcohol withdrawal. 1. EtoH withdrawal and alcohol abuse -continue CICA protocol -phenobarb prn for replacement, has received approximately 1430mg phenobarb at ~17-18mg/kg, will need to be careful with additional phenobarb -continue MVI, thiamine, folate -SW for resources to quit -avoid dosing both phenobarb and benzos -will switch to benzos as have been told there is concern with phenobarb and hospital policy 2. Hyponatremia -patient appears near euvolemia -she acknowledges eating very poorly -asymptomatic currently -likely beer potomania, in setting of drinking -encourage improved nutrition -dietary consult -sodium improving daily with improved nutrition 2. Hypothyroidism -continue cytomel, synthroid -TSH suppressed at 0.057, adjust Synthroid dose. 3. EtOH cirrhosis with known varices -continue nadolol, hold any diuretics 4. Bipolar disorder -continue saphris 5. Depression -continue sertraline 6. Type 2 Diabetes -hold metformin -low dose insulin sliding scale 7. Presumed hypertension -holding lisinopril 9. Nasal Impetigo -Bactroban ointment BID Time Spent With Patient Critical Care time: I spent a total of [] minutes of critical care time on this patient's care today; this time is exclusive of procedural time. Quality VTE Deep Vein Thrombosis/Pulmonary Embolism Present on Admission: No
[2021-06-04] MEDS: Asenapine Maleate [Saphris] 5 mg tablet, sublingual 10 EACH SL (20:31)
[2021-06-05 01:58] VITALS: BP 124/72; PULSE 72; RESP 18; TEMP 36.1; O2SAT 99
[2021-06-05] MEDS: LORazepam 1 MG TABLET PO (01:58)
[2021-06-05 02:40] VITALS: PULSE 70; RESP 18
[2021-06-05] MEDS: LEVOTHYROXINE 100 MCG TABLET 200 MCG PO (05:55)
[2021-06-05 06:36] LABS: Hematocrit 32.9 % (36-46); Hemoglobin 10.9 g/dL (12.0-16.0); Mean Corpuscular Volume 78.8 fL (80-100); Platelet Count 156 X10^3/uL (150-400); Red Blood Cell Count 4.18 X10^6/uL (4.0-5.2); Red Cell Distribution Width 16.5 % (11.6-14.8); White Blood Cell Count 5.4 X10^3/uL (4.5-11.0)
[2021-06-05 06:55] VITALS: O2SAT 99
[2021-06-05 06:56] LABS: BUN Creatinine Ratio 8.2 (6-22); Blood Urea Nitrogen 4 mg/dL (7-17); Calcium 9.2 mg/dL (8.4-10.2); Carbon Dioxide 29 mmol/L (22-32); Chloride 102 mmol/L (98-107); Estimated Glomerular Filt Rate > 60.0 mL/min (>60); Glucose 113 mg/dL (70-100); HEMOLYSIS < 15 (0-50); Potassium 3.8 mmol/L (3.4-5.1); Sodium 135 mmol/L (137-145)
[2021-06-05 07:00] VITALS: O2SAT 97
[2021-06-05 09:00] VITALS: BP 123/59; PULSE 72; RESP 16; TEMP 36.2; O2SAT 97
[2021-06-05] MEDS: MUPIROCIN 22 GM OINT 1 APPLIC TOP (09:18)
[2021-06-05] MEDS: LIOTHYRONINE 5 MCG TABLET 10 MCG PO (09:19)
[2021-06-05] MEDS: MULTIVITAMIN 1 TABLET 1 TAB PO (09:19)
[2021-06-05] MEDS: LACTOBACILLUS ACIDOPHILUS TABLET 1 EACH PO (09:21)
[2021-06-05] MEDS: ENOXAPARIN 40 MG/0.4 ML SYRINGE SUBCUT (09:21)
[2021-06-05] MEDS: FOLIC ACID 1 MG TABLET PO (09:21)
[2021-06-05] MEDS: SERTRALINE 50 MG TABLET PO (09:21)
[2021-06-05] MEDS: METFORMIN HCL 500 MG TABLET 1000 MG PO (09:21)
[2021-06-05] MEDS: SODIUM CHLORIDE 0.9% FLUSH 10 ML IV (09:22)
[2021-06-05 11:00] VITALS: BP 124/64; PULSE 71; RESP 16; TEMP 37.1; O2SAT 98
--- NOTE | 2021-06-05 14:16 | CM.DPC ---
DCP/continued: Reviewed chart. Received notification from provider that patient medically stable for d/c today. MUSHROOM SORTER GRADER met with patient to answer any d/c planning questions and provide her with community resources. Patient no longer detoxing from alcohol. Patient reports that she will be going to her Mom's at time of d/c. Resources for Medicaid transport, [facility], and [facility] provided to patient. Patient currently optimistic about staying sober. Patient provided MUSHROOM SORTER GRADER with permission to call [facility] CM/Alecia to inform her of d/c. Placed call to Alecia at [facility] and she reports that she will follow up with patient later today or in AM. [facility] does have opening to see patient as outpatient tomorrow. P: Home today. Resources provided. RAMIRO
[2021-06-05] MEDS: LORazepam 0.5 MG TABLET PO (14:41)
--- NOTE | 2021-06-05 15:36 | PC.NURSE ---
Discharged by provider. Pt verbalized understanding of all written and verbal d/c instructions. Printed scripts provided. Home medications retrieved from pharmacy and returned to pt. Pt escorted off unit via w/c to private vehicle. Pt left in stable condition with all personal belongings.
--- NOTE | 2021-06-05 15:55 | PM.DS.1 ---
History of Present Illness History of Present Illness Chief complaint: Fell of the [facility] Narrative: Ms. Burch is a 50W with PMH Type 2 DM, EtOH cirrhosis with esophageal varices s/p banding, etoh seizures, thyroid cancer s/p thyroidectomy, bipolar, depression who presents for request to detox from alcohol. She states she had been sober from alcohol for over a year, however she started drinking one month ago due to personal stress. She has been drinking 30 beers every 1.5 days. Last drink before coming in to the hospital. She has had withdrawal seizures in the past requiring intubation. She comes to the hospital because she wants to quite drinking. In the ED workup was done, temp 98.5 hr 68, bp 150/80, pulxe ox 96. Labs notable for WBC 12.5, hgb 13.5, plts 358, sodium 125, potassium 3.7, creatinine 0.44, ast/alt 42/36. tsh 0.057. Etoh level 184. UA negative. Chest xray was negative. She was feeling withdrawal so was given 260mg IV phenobarbital and felt this helped her. She was feeling still slight withdrawal symptoms when I saw her so was ordered for additional 130mg IV phenobarbital. Discharge Providers Provider Date of admission: 05/31/21 15:26 Discharge Date: 06/05/21 Primary care physician: Miguel Ángel Leary MD Consults: 05/31/21 13:40 Consult to SECURITY AND COMPLIANCE PROJECT MANAGER - Hydrochloric Area Supervisor Stat Comment: 05/31/21 15:53 Consult to Dietitian, Adult Routine Comment: Reason For Exam: alcohol abuse, hyponatremia, poor diet 05/31/21 16:59 Consult to Dietitian, Adult Routine Comment: Reason For Exam: weight lose and change in eating patterns Discharge provider: Chirag Garcia MD Summary Hospital Course Discharge Diagnosis: 1. Acute alcohol withdrawal with alcohol abuse 2. Hyponatremia, beer potomania 3. Hypothyroidism 4. Alcoholic cirrhosis with known varices 5. Bipolar disorder 6. Depression 7. Type 2 Diabetes 8. Hypertension Hospital Course: Ms. Burch was admitted for alcohol withdrawal after recently restarting drinking. She had previously been sober for over a year. In the hospital she did well with phenobarbital and then ativan on a CIWA protocol. On day of discharge she was feeling much improved. No further symptoms of withdrawal. She meet with perinatal social worker who provided information for outpatient resources to help with abstinence from alcohol. She was initially hyponatremic, but this improved with diet, and is presumed related to her poor nutritional status, as she admits to not eating well when she drinks. Exam Vital Signs (past 8 hours): Oxygen Delivery Method Room Air Oxygen Flow Rate 0 Narrative Exam Narrative: She is alert and oriented x3.? No apparent distress Heart is regular rate and rhythm without murmur Lungs are clear to auscultation bilaterally Extremities have no ankle edema Abdomen is soft, bowel sounds positive, nontender, obese, no organomegaly She has a longstanding right-sided footdrop with normal foot function on the left side. Objective Labs Result Diagrams: 06/05/21 06:15 06/05/21 06:15 [facility] Medical History Anxiety Avascular necrosis of bone of hip Bipolar disorder Chicken pox Chlamydia (~1988) Cirrhosis Colon polyp COPD (chronic obstructive pulmonary disease) Depression Esophageal varices Esophageal web Hayfever Hemorrhoids Hypothyroidism (1997) Irregular periods/menstrual cycles MRSA infection Pancytopenia Papillary adenocarcinoma of thyroid Seizures Shoulder pain Substance abuse Surgical History Anesthesia complication History of adenoidectomy History of bunionectomy History of dilation and curettage History of esophageal surgery (2016) History of left hip replacement (08/2017) History of placement of ear tubes History of right hip replacement (11/2017) History of tonsillectomy History of total thyroidectomy (1997) Family History Father No problems noted. Mother Depression Hyperlipidemia Thyroid disorder Mental health problem Brother No problems noted. Grandfather Lung cancer Cancer Grandmother Thyroid disorder Potassium disorder Hyperlipidemia Hypertension Grandfather No problems noted. Grandmother No problems noted. Family/Other No problems noted. Social History household members: significant other Smoking Status: Former smoker alcohol intake: former substance use type: does not use eating out: rarely or never Type(s) of exercise: none Discharge Plan Discharge Plan Patient Disposition: Home Provider Discharge Comment: Ms. Burch was admitted for alcohol abuse and withdrawal. She was treated for withdrawal and did well. On day of discharge she was feeling much better. She was planned to meet with social work to figure out transition for out of hospital resources. Discharge orders & Medications Prescriptions: New folic acid 1 mg Tablet 1 mg PO DAILY Qty: 30 0RF multivitamin with folic acid [Tab-A-Feroz] 400 mcg Tablet 1 tab PO DAILY Qty: 30 0RF thiamine HCl (vitamin B1) 100 mg tablet 50 mg PO DAILY Qty: 30 0RF Continued aspirin [Adult Low Dose Aspirin] 81 mg tablet,delayed release (DR/EC) 81 mg PO DAILY 0RF (DME) blood-glucose meter [True Metrix Glucose Meter] Mis See Rx Instructions .ROUTE .MEDSUPPLY Qty: 1 0RF Rx Instructions: use to chekc blood sugar 4 times a day (DME) True Metrix Glucose Test Strip Strip See Rx Instructions .ROUTE .MEDSUPPLY Qty: 400 3RF Rx Instructions: use to check blood sugar 4 times a day (DME) lancets Misc See Rx Instructions .ROUTE .MEDSUPPLY Qty: 400 3RF Rx Instructions: use to check blood sugar 4 times a day, brand per ins. levothyroxine 200 mcg tablet 200 mcg PO DAILY Qty: 90 3RF metformin 1,000 mg tablet 1,000 mg PO BID Qty: 180 1RF Rx Instructions: Take with food, pt takes at 1000 and 1900. pravastatin 20 mg tablet 20 mg PO BEDTIME Qty: 90 3RF liothyronine 5 mcg tablet 10 mcg PO DAILY Qty: 180 2RF nadolol 40 mg tablet 40 mg PO DAILY Qty: 90 2RF sertraline 50 mg tablet 50 mg PO DAILY Qty: 90 1RF hydroxyzine HCl 50 mg tablet 50 mg PO TID PRN (Reason: anxiety) Qty: 90 0RF Rx Instructions: PT DUE FOR APPT BEFORE END OF RX/FUTURE REFILLS. PLEASE CALL TO SCHEDULE APPT. THANK YOU 05/20/21. furosemide 40 mg tablet 20 mg PO BID 0RF asenapine maleate [Saphris] 5 mg tablet, sublingual 10 mg sublingual DAILY 0RF Rx Instructions: 30 DAYS ONLY OK'D BY AYRY. PATIENT NEEDS TO FIND BEHAVIORAL HEALTH DOC FOR CONT'D FILLS. THANK YOU 05/15/21 omeprazole 20 mg capsule,delayed release(DR/EC) 20 mg PO PRN PRN (Reason: Acid Reflux) 0RF Follow up/Referrals: Miguel Ángel Leary MD [Primary Care Provider] - Diet/Activity/Treatments Diet: Carb-consistent/Diabetic Visit Report/Discharge Packet Instructions: Alcohol and Stress: There are Safer Ways to [place], Balanced Diet, Carbohydrate-Counting Diet, DI for Alcohol Use Disorder, DI for Hyponatremia, Drug and Alcohol Withdrawal Discharge Data Primary Care Provider: Miguel Ángel Leary Quality VTE Deep Vein Thrombosis/Pulmonary Embolism Present on Admission: No
== END 2021-06-05 15:30 | disposition home or self-care (01) | DRG 775 ==
LOC: ED 14:47 → AC 06-01 07:58
PROVIDERS: Admitting Provider Internal Medicine; Emergency Provider Emergency Medicine; PCP Student in an Organized Health Care Education/Training Program; Referring Provider Emergency Medicine; Visit Provider Internal Medicine
DX: F10.139 Alcohol abuse with withdrawal, unspecified (principal); E87.1 Hypo-osmolality and hyponatremia; Y90.6 Blood alcohol level of 120-199 mg/100 ml; L01.00 Impetigo, unspecified; K74.60 Unspecified cirrhosis of liver; I85.10 Secondary esophageal varices without bleeding; E03.9 Hypothyroidism, unspecified; F31.9 Bipolar disorder, unspecified; E11.9 Type 2 diabetes mellitus without complications; I10 Essential (primary) hypertension; F41.9 Anxiety disorder, unspecified; Z79.84 Long term (current) use of oral hypoglycemic drugs; Z87.891 Personal history of nicotine dependence; Z20.822 Contact with and (suspected) exposure to COVID-19
CPT/HCPCS: 36415; 73610; 73630; 74019; 80048; 80053; 80076; 80305; 80320; 80329; 81001; 81025; 82962; 83735; 84100; 84439; 84443; 85025; 85027; 87635; 94760; 96365; 96375; 96376; 99284; C9803; G0480; J1650; J1815; J2405; J2560

== ENCOUNTER 2021-06-21 17:34 | Inpatient (IN) | payer OTHER, MEDICAID, SELFPAY ==
[2021-05-31 16:44] VITALS: BMI 32.5
[2021-06-21] VITALS (7 sets, daily range): BP systolic 149–172; BP diastolic 87–103; PULSE 85–103; RESP 16–22; TEMP 35.9–36.6; O2SAT 93–95; BMI 34.4
--- NOTE | 2021-06-21 17:38 | DI.CT.S_ITS ---
PROCEDURE: CT HEAD/BRAIN WO CON INDICATIONS: seizure TECHNIQUE: Noncontrast 4.5 mm thick angled axial sections acquired from the foramen magnum to the vertex, with coronal and sagittal reformats. For radiation dose reduction, the following was used: automated exposure control, adjustment of mA and/or kV according to patient size. COMPARISON: None. FINDINGS: Image quality: Excellent. CSF spaces: Basal cisterns are patent. No extra-axial fluid collections. Ventricles are normal in size and shape. Brain: No midline shift. No intracranial masses or hemorrhage. Burt-white matter interface is normal. Skull and face: Calvarium and visualized facial bones are intact, without suspicious lesions. Sinuses: Visualized sinuses and mastoids are clear. IMPRESSION: No acute intracranial abnormality. Dictated by: Miki Chou M.D. on 06/21/2021 at 20:22 Approved by: Miki Chou M.D. on 06/21/2021 at 20:24
[2021-06-21] MEDS: LORazepam 2 MG/ML INJ IV (17:50)
[2021-06-21] MEDS: SODIUM CHLORIDE 0.9% 1,000 ML 150 ML IV (17:53)
[2021-06-21 17:57] LABS: Add Manual Diff / Slide Review NO; Basophils Absolute Auto 300 /uL (0-100); Basophils Percent Auto 3.3 % (0-2); Eosinophils Absolute Auto 0 /uL (0-450); Eosinophils Percent Auto 0.4 % (2-4); Hematocrit 40.4 % (36-46); Hemoglobin 13.5 g/dL (12.0-16.0); Lymphocytes Absolute Auto 3400 /uL (1100-4500); Lymphocytes Percent Auto 34.7 % (25-40); Mean Corpuscular HGB Conc 33.4 % (30-36); Mean Corpuscular Hemoglobin 25.7 PG (26-34); Mean Corpuscular Volume 76.9 fL (80-100); Monocytes Absolute Auto 400 /uL (0-900); Monocytes Percent Auto 4.2 % (3-14); Neutrophils Absolute Auto 5600 /uL (1500-7000); Neutrophils Percent Auto 57.4 % (50-75); Platelet Count 474 X10^3/uL (150-400); Red Blood Cell Count 5.26 X10^6/uL (4.0-5.2); Red Cell Distribution Width 16.6 % (11.6-14.8); White Blood Cell Count 9.7 X10^3/uL (4.5-11.0)
--- NOTE | 2021-06-21 17:57 | PC.NURSE ---
Per patient, it was her boyfriend that believed she was having seizures, possible hx of withdrawal from ETOH seizures. Seizure pads in place.
[2021-06-21 18:08] LABS: Creatine Kinase 27 U/L (30-135)
[2021-06-21 18:11] LABS: Alanine Aminotransferase 48 IU/L (<35); Albumin Globulin Ratio 1.4 (1.0-2.8); Alkaline Phosphatase 143 U/L (38-126); Aspartate Aminotransferase 33 IU/L (14-36); Bilirubin Total 0.3 mg/dL (0.2-1.3); Carbon Dioxide 27 mmol/L (22-32); Chloride 102 mmol/L (98-107); Estimated Glomerular Filt Rate > 60.0 mL/min (>60); Ethanol (ETOH) 247 mg/dL; Globulin 3.7 g/dL (1.7-4.1); Glucose 207 mg/dL (70-100); HEMOLYSIS < 15 (0-50); Lipase 104 U/L (23-300); Potassium 4.3 mmol/L (3.4-5.1); Sodium 141 mmol/L (137-145); Total Protein 8.7 g/dL (6.3-8.2)
[2021-06-21 18:15] LABS: BUN Creatinine Ratio 5.9 (6-22); Blood Urea Nitrogen < 2 mg/dL (7-17)
[2021-06-21 18:21] LABS: Troponin I < 0.012 ng/mL (0.01-0.034)
[2021-06-21 18:49] LABS: COVID19 -Nasal RAPID Negative (Negative)
[2021-06-21 18:53] LABS: UR Morphine/Opiate cutoff 300 Negative (Negative); Ur Creatinine Normal (Normal); Ur Specific Gravity Normal (Normal); Urine Amphetamines Negative (Negative); Urine Barbiturates Negative (Negative); Urine Benzodiazepines Negative (Negative); Urine Cocaine Negative (Negative); Urine MDMA Negative (Negative); Urine Methadone Negative (Negative); Urine Methamphetamines Negative (Negative); Urine Oxycodone Negative (Negative); Urine Phencyclidine Negative (Negative); Urine Tetrahydrocannabinol Positive (Negative); Urine Tricyclic Antidepressant Negative (Negative); Urine pH Normal (Normal)
--- NOTE | 2021-06-21 20:40 | ED_ITS ---
HPI - Seizure General Chief Complaint: Seizure Stated Complaint: ETOH withdrawl Time Seen by Provider: 06/21/21 17:37 Source: patient and EMS Mode of arrival: EMS Limitations: no limitations History of Present Illness HPI Narrative: Patient is a 51-year-old female. Has a history of alcohol abuse. I evaluated her and admitted her to the hospital within the past month for alcohol withdrawal. Patient states that after she was discharged she did spend a period of time without any drinking but then found out that her stepfather who lives in another state and there were other family medical issues. She started drinking again. Has been drinking on a daily basis. She drink this morning. She is here in the emergency department with family who stated that she had what appeared to be seizure-like activity earlier today. Patient has had withdrawal seizures in the past. She denies any other ingestions. She is here seeking help for alcohol withdrawal. Related Data Home Medications Medication Instructions Recorded Confirmed aspirin 81 mg tablet,delayed 81 mg PO DAILY 12/17/19 06/21/21 release (Adult Low Dose Aspirin) asenapine maleate 5 mg sublingual 10 mg SUBLINGUAL BEDTIME tab 06/18/21 06/21/21 tablet (Saphris) Previous Rx's Medication Instructions Recorded blood sugar diagnostic (True #400 each 03/07/20 Metrix Glucose Test Strip) blood-glucose meter (True Metrix #1 each 03/07/20 Glucose Meter) lancets #400 each 03/07/20 levothyroxine 200 mcg tablet 200 mcg PO DAILY #90 tab 12/10/20 pravastatin 20 mg tablet 20 mg PO BEDTIME #90 tab 03/01/21 liothyronine 5 mcg tablet 10 mcg PO DAILY #180 tab 04/20/21 nadolol 40 mg tablet 40 mg PO DAILY #90 tab 04/26/21 sertraline 50 mg tablet 50 mg PO DAILY #90 tab 05/13/21 multivitamin with folic acid 400 1 tab PO DAILY #30 tab 06/05/21 mcg tablet (Tab-A-Feroz) omeprazole 20 mg capsule,delayed 20 mg PO PRN PRN #90 cap 06/12/21 release furosemide 40 mg tablet 40 mg PO DAILY #30 tab 06/18/21 hydroxyzine HCl 50 mg tablet 50 mg PO TID PRN #90 tab 06/18/21 metformin 1,000 mg tablet,extended 1,000 mg PO BID #60 tab 06/18/21 release 24hr naltrexone 50 mg tablet 50 mg PO DAILY #30 tab 06/18/21 Allergies Allergy/AdvReac Type Severity Reaction Status Date / Time Penicillins [PENICILLINS] Allergy Intermediate Swelling Verified 06/18/21 14:18 of Lip/Tongue/Throat shellfish derived Allergy Intermediate Rash Verified 06/18/21 14:38 Sulfa (Sulfonamide Allergy Intermediate Rash Verified 06/18/21 14:18 Antibiotics) [SULFA (SULFONAMIDE ANTIBIOTICS)] sulfamethoxazole Allergy Intermediate Rash Verified 06/18/21 14:18 [From Bactrim] trimethoprim [From Bactrim] Allergy Intermediate Rash Verified 06/18/21 14:18 Review of Systems Constitutional Constitutional: Denies headache(s) ENT Ears, Nose, Mouth, and Throat: Denies headache(s) Cardiovascular Cardiovascular: Denies chest pain and Denies dyspnea Respiratory Respiratory: Denies dyspnea Gastrointestinal Gastrointestinal: Denies abdominal pain Genitourinary Genitourinary: Reports system reviewed and no additional complaints, except as documented Integumentary/Breasts Skin/Breast: Reports system reviewed and no additional complaints, except as documented Neurologic Neurologic: Denies headache(s) and Reports seizure-like activity Psychiatric Psychiatric: Reports anxiety Hematologic/Lymphatic On Anticoagulants: No Allergic/Immunologic Allergic/Immunologic: Reports system reviewed and no additional complaints, except as documented Patient History Medical History Anxiety Avascular necrosis of bone of hip Bipolar disorder Chicken pox Chlamydia (~1988) Cirrhosis Colon polyp COPD (chronic obstructive pulmonary disease) Depression Esophageal varices Esophageal web Hayfever Hemorrhoids Hypothyroidism (1997) Irregular periods/menstrual cycles MRSA infection Pancytopenia Papillary adenocarcinoma of thyroid Seizures Shoulder pain Substance abuse Surgical History Anesthesia complication History of adenoidectomy History of bunionectomy History of dilation and curettage History of esophageal surgery (2016) History of left hip replacement (08/2017) History of placement of ear tubes History of right hip replacement (11/2017) History of tonsillectomy History of total thyroidectomy (1997) Family History Father No problems noted. Mother Depression Hyperlipidemia Thyroid disorder Mental health problem Brother No problems noted. Grandfather Lung cancer Cancer Grandmother Thyroid disorder Potassium disorder Hyperlipidemia Hypertension Grandfather No problems noted. Grandmother No problems noted. Family/Other No problems noted. Social History household members: significant other Smoking Status: Current some day smoker alcohol intake: current substance use type: does not use eating out: rarely or never Type(s) of exercise: none Smoking Status: Former smoker alcohol intake frequency: 3 or more drinks per day Alcohol type: beer Substance Use Type: marijuana Exam Initial Vital Signs Initial Vital Signs: Vital Signs Temperature 96.6 F L 06/21/21 17:45 Pulse Rate 92 H 06/21/21 17:45 Respiratory Rate 20 06/21/21 17:45 Blood Pressure 164/92 H 06/21/21 17:45 Pulse Oximetry 94 06/21/21 17:45 HENMT Head: normal to inspection and normocephalic Resp Effort & Inspection: normal respiratory effort Cardio Rate: regular rate GI Inspection: normal to inspection Skin General: no rashes or lesions noted Neuro General: patient alert, patient awake, patient oriented x3 and moves all extremities Speech: speech normal Extrem General: normal to inspection Psych Other: Somewhat anxious, shaky, cooperative Scores GCS Magdi coma scale eye opening: Spontaneous Magdi coma scale verbal response: Orientated Magdi coma scale motor response: Obey commands Magdi coma scale total score: 15 Course Orders Ordered: ED Orders 06/21/21 17:38 CT head/brain wo con Stat 06/21/21 17:40 Complete Blood Count AUTO DIFF Stat Comprehensive Metabolic Panel Stat Ethanol (ETOH) Stat Lipase Stat Magnesium Stat NT-proBNP (BNP-Adult 18+) Urgent Troponin & CK Cardiac Panel Stat 06/21/21 17:54 COVID19 -Nasal swab/Pre-Proc Stat 06/21/21 18:26 Urine Drug Screen, Rapid Stat 06/21/21 20:45 Consult to Dietitian, Adult Routine 06/21/21 20:47 Education, smoking cessation ONGOING 06/21/21 21:12 Ammonia (NH3) Urgent 06/22/21 05:00 Basic Metabolic Panel Routine Acetaminophen (Acetaminophen 325 Mg Tablet) 650 mg PO Q6HR PRN PRN Reason: Fever/Mild Pain (1-3) Enoxaparin Sodium (Enoxaparin 40 Mg/0.4 Ml Syringe) 40 mg SUBCUT DAILY [facility] Folic Acid (Folic Acid 1 Mg Tablet) 1 mg PO DAILY [facility] Sodium Chloride (Normal Saline 0.9%) 1,000 mls @ 80 mls/hr IV CONT [facility] Last Admin: 06/21/21 22:31 Dose: 80 mls/hr Documented by: SHIRA Multivitamins (Multivitamin 1 Tablet) 1 tab PO DAILY [facility] Naloxone HCl (Naloxone 0.4 Mg/Ml Vial) 0.2 mg IV Q2MIN PRN PRN Reason: Opiate Reversal Ondansetron HCl (Ondansetron 4 Mg/2 Ml Inj) 4 mg IV Q8HR PRN PRN Reason: Nausea And Vomiting Phenobarbital (Phenobarbital 32.4 Mg Tablet) 60 mg PO QID [facility] Stop: 06/23/21 08:00 Phenobarbital (Phenobarbital 32.4 Mg Tablet) 60 mg PO TID [facility] Stop: 06/24/21 08:00 Thiamine HCl (Thiamine 100 Mg Tablet) 100 mg PO DAILY [facility] Stop: 06/25/21 09:01 Discontinued Medications Sodium Chloride (Normal Saline 0.9%) 1,000 mls @ 150 mls/hr IV CONT [facility] Last Infusion: 06/21/21 21:50 Dose: 0 mls/hr Documented by: Admin: 06/21/21 17:53 Dose: 150 mls/hr Documented by: JORDYN Lorazepam (Lorazepam 2 Mg/Ml Inj) 2 mg IV NOW ONE Stop: 06/21/21 17:38 Last Admin: 06/21/21 17:50 Dose: 2 mg Documented by: JORDYN Phenobarbital (Phenobarbital 65 Mg/Ml Vial) 130 mg IV NOW ONE Stop: 06/21/21 20:43 Last Admin: 06/21/21 20:51 Dose: 130 mg Documented by: TIM Phenobarbital (Phenobarbital 65 Mg/Ml Vial) 130 mg IV NOW ONE Stop: 06/21/21 23:31 Last Admin: 06/21/21 23:37 Dose: 130 mg Documented by: SHIRA Phenobarbital Sodium (Phenobarbital 130 Mg/Ml Vial) 130 mg IV NOW ONE Stop: 06/21/21 22:46 Vital Signs Vital signs: Vital Signs - 8 hr 06/21/21 17:45 06/21/21 17:48 06/21/21 18:00 Temperature 96.6 F L Pulse Rate 92 H 93 H 101 H Respiratory Rate 20 Blood Pressure 164/92 H 149/87 H Pulse Oximetry 94 94 93 06/21/21 18:27 06/21/21 18:30 Temperature Pulse Rate 100 H 103 H Respiratory Rate 22 22 Blood Pressure 155/91 H 158/91 H Pulse Oximetry 95 93 MDM - Seizure Lab Data Attestation: I reviewed the patient's lab results. Result diagrams: 06/21/21 17:40 06/21/21 17:40 Labs: Lab Results 06/21/21 06/21/21 06/21/21 Range/Units 17:40 17:40 17:40 WBC 9.7 (4.5-11.0) X10^3/uL RBC 5.26 H (4.0-5.2) X10^6/uL Hgb 13.5 (12.0-16.0) g/dL Hct 40.4 (36-46) % MCV 76.9 L (80-100) fL MCH 25.7 L (26-34) PG MCHC 33.4 (30-36) % RDW 16.6 H (11.6-14.8) % Plt Count 474 H (150-400) X10^3/uL Neut % (Auto) 57.4 (50-75) % Lymph % (Auto) 34.7 (25-40) % Morrill % (Auto) 4.2 (3-14) % Eos % (Auto) 0.4 L (2-4) % Baso % (Auto) 3.3 H (0-2) % Neut # (Auto) 5600 (0924-0643) /uL Lymph # (Auto) 3400 (0474-6910) /uL Morrill # (Auto) 400 (0-900) /uL Eos # (Auto) 0 (0-450) /uL Baso # (Auto) 300 H (0-100) /uL Sodium 141 (137-145) mmol/L Potassium 4.3 (3.4-5.1) mmol/L Chloride 102 (98-107) mmol/L Carbon Dioxide 27 (22-32) mmol/L BUN < 2 L (7-17) mg/dL Creatinine 0.34 L (0.52-1.04) mg/dL Estimated GFR > 60.0 (>60) mL/min BUN/Creatinine Ratio 5.9 L (6-22) Glucose 207 H (70-100) mg/dL Calcium 10.0 (8.4-10.2) mg/dL Magnesium 2.0 (1.6-2.3) mg/dL Total Bilirubin 0.3 (0.2-1.3) mg/dL AST 33 (14-36) IU/L ALT 48 H (<35) IU/L Alkaline Phosphatase 143 H (38-126) U/L Total Creatine Kinase 27 L (30-135) U/L CK-MB (CK-2) TNP CK-MB (CK-2) Rel Index TNP Troponin I < 0.012 (0.01-0.034) ng/mL NT-Pro-B Natriuret Pep (<125) pg/mL Total Protein 8.7 H (6.3-8.2) g/dL Albumin 5.0 (3.5-5.0) g/dL Globulin 3.7 (1.7-4.1) g/dL Albumin/Globulin Ratio 1.4 (1.0-2.8) Lipase 104 (23-300) U/L U Opiates 300ng/mL cut (Negative) Ur Oxycodone Screen (Negative) Urine Methadone Screen (Negative) Ur Barbiturates Screen (Negative) U Tricyclic Antidepress (Negative) Ur Phencyclidine Scrn (Negative) Ur Amphetamines Screen (Negative) U Methamphetamines Scrn (Negative) Ur MDMA Scrn (Ecstasy) (Negative) U Benzodiazepines Scrn (Negative) Urine Cocaine Screen (Negative) U Marijuana (THC) Screen (Negative) Ethyl Alcohol 247 H ( - 10) mg/dL SARS-CoV-2 (PCR) (Negative) 06/21/21 06/21/21 06/21/21 Range/Units 17:40 17:54 18:26 WBC (4.5-11.0) X10^3/uL RBC (4.0-5.2) X10^6/uL Hgb (12.0-16.0) g/dL Hct (36-46) % MCV (80-100) fL MCH (26-34) PG MCHC (30-36) % RDW (11.6-14.8) % Plt Count (150-400) X10^3/uL Neut % (Auto) (50-75) % Lymph % (Auto) (25-40) % Morrill % (Auto) (3-14) % Eos % (Auto) (2-4) % Baso % (Auto) (0-2) % Neut # (Auto) (8273-1926) /uL Lymph # (Auto) (3954-9138) /uL Morrill # (Auto) (0-900) /uL Eos # (Auto) (0-450) /uL Baso # (Auto) (0-100) /uL Sodium (137-145) mmol/L Potassium (3.4-5.1) mmol/L Chloride (98-107) mmol/L Carbon Dioxide (22-32) mmol/L BUN (7-17) mg/dL Creatinine (0.52-1.04) mg/dL Estimated GFR (>60) mL/min BUN/Creatinine Ratio (6-22) Glucose (70-100) mg/dL Calcium (8.4-10.2) mg/dL Magnesium (1.6-2.3) mg/dL Total Bilirubin (0.2-1.3) mg/dL AST (14-36) IU/L ALT (<35) IU/L Alkaline Phosphatase (38-126) U/L Total Creatine Kinase (30-135) U/L CK-MB (CK-2) CK-MB (CK-2) Rel Index Troponin I (0.01-0.034) ng/mL NT-Pro-B Natriuret Pep 102 (<125) pg/mL Total Protein (6.3-8.2) g/dL Albumin (3.5-5.0) g/dL Globulin (1.7-4.1) g/dL Albumin/Globulin Ratio (1.0-2.8) Lipase (23-300) U/L U Opiates 300ng/mL cut Negative (Negative) Ur Oxycodone Screen Negative (Negative) Urine Methadone Screen Negative (Negative) Ur Barbiturates Screen Negative (Negative) U Tricyclic Antidepress Negative (Negative) Ur Phencyclidine Scrn Negative (Negative) Ur Amphetamines Screen Negative (Negative) U Methamphetamines Scrn Negative (Negative) Ur MDMA Scrn (Ecstasy) Negative (Negative) U Benzodiazepines Scrn Negative (Negative) Urine Cocaine Screen Negative (Negative) U Marijuana (THC) Screen Positive H (Negative) Ethyl Alcohol ( - 10) mg/dL SARS-CoV-2 (PCR) Negative (Negative) Point of Care Testing Glucose POC 177 Urine Dip Bedside Urine Glucose Negative Bedside Urine Bilirubin - Negative Bedside Urine Ketone - Negative Urine Specific Dana 1.005 Bedside Urine Occult Blood - Negative Bedside Urine pH 6.0 Bedside Urine Protein - Negative Bedside Urine Urobilinogen - Negative Bedside Urine Nitrite - Negative Bedside Urine Leukocytes - Negative Esterase Imaging Data CT scan - head: Radiologist's Impression: [address] [address] [address] Scan Report Signed Patient: Yin Burch MR#: [id number] : 1970 Acct:[id number] Age/Sex: 51 / F Date of Service: 06/21/21 Loc: ED Accession Number: [id number] ?? Procedure: CT head/brain wo con Ordering Provider: Suzette Lea D.O. PROCEDURE:? CT HEAD/BRAIN WO CON ? INDICATIONS:? seizure ? TECHNIQUE:? Noncontrast 4.5 mm thick angled axial sections acquired from the foramen magnum to the vertex, with coronal and sagittal reformats.? For radiation dose reduction, the following was used:? automated exposure control, adjustment of mA and/or kV according to patient size.? ? COMPARISON:? None. ? FINDINGS:? Image quality:? Excellent.? ? CSF spaces:? Basal cisterns are patent.? No extra-axial fluid collections.? Ventricles are normal in size and shape.? ? Brain:? No midline shift.? No intracranial masses or hemorrhage.? Burt-white matter interface is normal.? ? Skull and face:? Calvarium and visualized facial bones are intact, without suspicious lesions.? ? Sinuses:? Visualized sinuses and mastoids are clear.? ? IMPRESSION:? No acute intracranial abnormality. ? ? Dictated by: Miki Chou M.D. on 06/21/2021 at 20:22 ? ? Approved by: Miki Chou M.D. on 06/21/2021 at 20:24? MDM Narrative Medical decision making narrative: No seizure-like activity here in the emergency department. Head CT is unremarkable. Patient does have an elevated alcohol level. Is obviously having withdrawal symptoms. Was given Ativan initially. Patient would like help with detox/alcohol abuse. Patient is high risk for complications given her prior history. Discuss the case with ARGENIS Garvey the [facility] provider who will admit for further evaluation and treatment. Phenobarbital administered per request of the admitting provider. Patient is in agreement with admission. Discharge Plan Departure Patient Disposition: Admitted as Observation Clinical Impression: Alcohol withdrawal Admit Date/Time: 06/21/21 20:51 Admit Provider: Criselda Garvey
[2021-06-21] MEDS: PHENobarbital 65 MG/ML VIAL 130 MG IV ×2 (20:51→23:37)
[2021-06-21 21:23] LABS: NT-proBNP (BNP-Adult 18+) 102 pg/mL (<125)
[2021-06-21 21:30] LABS: Ammonia (NH3) 10 umol/L (9-30)
[2021-06-21] MEDS: SODIUM CHLORIDE 0.9% 1,000 ML 80 ML IV (22:31)
--- NOTE | 2021-06-21 23:19 | PC.NURSE ---
[id number] Pt. was admitted by Amilcar SALEEM, oriented to her room seizures precaution implemented. Requesting medication for her alcohol withdrawal, initial CIWA score upon admission was 10. DAISY Garvey notified, awaiting for coordinator to get Phenobarbital none in the Pyxis. Instructed pt. to call for any needs & assistance, call light with in reach. Will continue plan of care & monitor.
[2021-06-22] VITALS (12 sets, daily range): BP systolic 140–162; BP diastolic 69–93; PULSE 79–88; RESP 16–18; TEMP 36.3–36.7; O2SAT 93–98
--- NOTE | 2021-06-22 01:20 | PM.HP.1 ---
History of Present Illness History of Present Illness Date Patient Seen: 06/21/21 Time Patient Seen: 20:56 Chief complaint: ETOH withdrawl Narrative: Yin Burch is a 51-year-old female.? Has a history of alcohol abuse.? I evaluated her and admitted her to the hospital within the past month for alcohol withdrawal.? Patient states that after she was discharged she did spend a period of time without any drinking but then found out that her stepfather who lives in another state and there were other family medical issues.? She started drinking again.? Has been drinking on a daily basis.? She drink this morning.? Patient has had withdrawal seizures in the past.?Patient had previously reported beening sober x 1 year, prior to her last admit. The patient reports that she drinks 12 pack of 16oz beers, and 4-5 small hotel bottles of Fireball daily. She is here seeking help for alcohol withdrawal. The patient denies chest pain, palpations, shortness of breath, abdominal pain, nausea, vomiting, fever, body aches, chills, cough, urinary symptoms, bowel symptoms, peripheral edema, recent illness injury or trauma. Per Dr. Gee D/C Hospitalization 05/31-06/05/2021:Ms. Burch was admitted for alcohol withdrawal after recently restarting drinking. She had previously been sober for over a year. In the hospital she did well with phenobarbital and then ativan on a CIWA protocol. On day of discharge she was feeling much improved. No further symptoms of withdrawal. She meet with social work msw who provided information for outpatient resources to help with abstinence from alcohol. She was initially hyponatremic, but this improved with diet, and is presumed related to her poor nutritional status, as she admits to not eating well when she drinks. Patient's vitals demonstrated mild hypertension, tachycardia, and mildly tachypneic upon admit. Temp 96.6?, BP 158/91, HR 103, RR 22, O2 saturation 93% on room air. Patient's CBC was grossly normal with the exception of platelets 474, CBC patient's creatinine is slightly low at 0.34, BUN <2mg/dl, glucose 207, ALT 48, alk-phos 143, TCK 27, tox screen positive for THC, ETOH 247. Head CT negative for any acute intracranial processes. Patient admitted for alcohol withdrawal, alcohol abuse. Patient History Medical History Anxiety Avascular necrosis of bone of hip Bipolar disorder Chicken pox Chlamydia (~1988) Cirrhosis Colon polyp COPD (chronic obstructive pulmonary disease) Depression Esophageal varices Esophageal web Hayfever Hemorrhoids Hypothyroidism (1997) Irregular periods/menstrual cycles MRSA infection Pancytopenia Papillary adenocarcinoma of thyroid Seizures Shoulder pain Substance abuse Surgical History Anesthesia complication History of adenoidectomy History of bunionectomy History of dilation and curettage History of esophageal surgery (2016) History of left hip replacement (08/2017) History of placement of ear tubes History of right hip replacement (11/2017) History of tonsillectomy History of total thyroidectomy (1997) Family & Social History Family History Father No problems noted. Mother Depression Hyperlipidemia Thyroid disorder Mental health problem Brother No problems noted. Grandfather Lung cancer Cancer Grandmother Thyroid disorder Potassium disorder Hyperlipidemia Hypertension Grandfather No problems noted. Grandmother No problems noted. Family/Other No problems noted. Social History: household members significant other Prior Living Arrangements House Safety & Behavioral: Feels Safe in Current Yes Environment Been Physically Hurt or No Threatened By a Person Suicidal Ideation Description Vague Suicide Plan Description No Plan Tobacco & Substance use: Tobacco type cannabis/marijuana Smoking Status Current some day smoker alcohol intake current alcohol intake frequency 3 or more drinks per day Substance Use Type marijuana Meds Home Medications and Allergies Home Medications Medication Instructions Recorded Confirmed Type aspirin 81 mg tablet,delayed 81 mg PO DAILY 12/17/19 06/21/21 History release (Adult Low Dose Aspirin) blood sugar diagnostic (True #400 each 03/07/20 06/21/21 Rx Metrix Glucose Test Strip) blood-glucose meter (True Metrix #1 each 03/07/20 06/21/21 Rx Glucose Meter) lancets #400 each 03/07/20 06/21/21 Rx levothyroxine 200 mcg tablet 200 mcg PO DAILY #90 tab 12/10/20 06/21/21 Rx pravastatin 20 mg tablet 20 mg PO BEDTIME #90 tab 03/01/21 06/21/21 Rx liothyronine 5 mcg tablet 10 mcg PO DAILY #180 tab 04/20/21 06/21/21 Rx nadolol 40 mg tablet 40 mg PO DAILY #90 tab 04/26/21 06/21/21 Rx sertraline 50 mg tablet 50 mg PO DAILY #90 tab 05/13/21 06/21/21 Rx multivitamin with folic acid 400 1 tab PO DAILY #30 tab 06/05/21 06/21/21 Rx mcg tablet (Tab-A-Feroz) omeprazole 20 mg capsule,delayed 20 mg PO PRN PRN #90 cap 06/12/21 06/21/21 Rx release asenapine maleate 5 mg sublingual 10 mg SUBLINGUAL BEDTIME tab 06/18/21 06/21/21 History tablet (Saphris) furosemide 40 mg tablet 40 mg PO DAILY #30 tab 06/18/21 06/21/21 Rx hydroxyzine HCl 50 mg tablet 50 mg PO TID PRN #90 tab 06/18/21 06/21/21 Rx metformin 1,000 mg tablet,extended 1,000 mg PO BID #60 tab 06/18/21 06/21/21 Rx release 24hr naltrexone 50 mg tablet 50 mg PO DAILY #30 tab 06/18/21 06/21/21 Rx Allergies Allergy/AdvReac Type Severity Reaction Status Date / Time Penicillins [PENICILLINS] Allergy Intermediate Swelling Verified 06/18/21 14:18 of Lip/Tongue/Throat shellfish derived Allergy Intermediate Rash Verified 06/18/21 14:38 Sulfa (Sulfonamide Allergy Intermediate Rash Verified 06/18/21 14:18 Antibiotics) [SULFA (SULFONAMIDE ANTIBIOTICS)] sulfamethoxazole Allergy Intermediate Rash Verified 06/18/21 14:18 [From Bactrim] trimethoprim [From Bactrim] Allergy Intermediate Rash Verified 06/18/21 14:18 Review of Systems Review of Systems Narrative: All 12 point systems reviewed with the patient and are negative except otherwise documented. Exam Vital Signs (past 8 hours): - 06/21/21 17:45 06/21/21 17:48 06/21/21 18:00 Temperature 96.6 F L Pulse Rate 92 H 93 H 101 H Respiratory Rate 20 Blood Pressure 164/92 H 149/87 H Pulse Oximetry 94 94 93 06/21/21 18:27 06/21/21 18:30 06/21/21 22:06 Temperature 97.9 F Pulse Rate 100 H 103 H 85 Respiratory Rate 22 16 Blood Pressure 155/91 H 158/91 H 172/103 H Pulse Oximetry 95 93 94 06/21/21 22:07 Temperature Pulse Rate Respiratory Rate Blood Pressure Pulse Oximetry 94 Oxygen Delivery Method Room Air Oxygen Flow Rate 0 Narrative Exam Narrative: General: Patient is a well-developed, well-nourished female, in no distress at this time. HEENT: Normocephalic, atraumatic, extraocular muscles intact, oral pharynx is clear and mucous membranes are moist. Neck is supple and symmetric, trachea is midline, no adenopathy, no thyroid enlargement, nontender, no masses palpated. Negative for JVD Chest: Normal AP diameter and contour without kyphoscoliosis, no nasal flaring, retractions, or tachypneic labored Lungs: Auscultation of all lung barnett are clear without adventitious sounds, wheezes, rhonchi, or rales. Cardio: regular rate and rhythm without murmur, rubs, or gallops, no carotid bruit, no cardiac pulsations present. Abdomen: Soft nontender, negative for organomegaly, or masses. Bowel sounds are present in all 4 quadrants without guarding or rebound, no CVA tenderness. Musculoskeletal: Muscle strength and tone are equal within normal limits, no deformity, crepitus, effusions, cyanosis, clubbing or edema present. Full range of motion intact radial and pedal pulses are normal. Skin: Warm dry and intact without rashes, ulcerations or petechiae. Neuro: Alert and orientated x3, strength is +5/5 in all extremities, sensation to touch intact, no gross deficits noted of cranial nerves. Psych: Patient has a well-kept appearance, appropriate affect, mental status attitude thought context and judgment are appropriate for age. Objective Labs Result Diagrams: 06/21/21 17:40 06/21/21 17:40 Labs: Laboratory Results - last 24 hr 06/21/21 06/21/21 06/21/21 17:40 17:40 17:40 WBC 9.7 RBC 5.26 H Hgb 13.5 Hct 40.4 MCV 76.9 L MCH 25.7 L MCHC 33.4 RDW 16.6 H Plt Count 474 H Neut % (Auto) 57.4 Lymph % (Auto) 34.7 [place] % (Auto) 4.2 Eos % (Auto) 0.4 L Baso % (Auto) 3.3 H Neut # (Auto) 5600 Lymph # (Auto) 3400 [place] # (Auto) 400 Eos # (Auto) 0 Baso # (Auto) 300 H Sodium 141 Potassium 4.3 Chloride 102 Carbon Dioxide 27 BUN < 2 L Creatinine 0.34 L Estimated GFR > 60.0 BUN/Creatinine Ratio 5.9 L Glucose 207 H Calcium 10.0 Magnesium 2.0 Total Bilirubin 0.3 AST 33 ALT 48 H Alkaline Phosphatase 143 H Ammonia Total Creatine Kinase 27 L CK-MB (CK-2) TNP CK-MB (CK-2) Rel Index TNP Troponin I < 0.012 NT-Pro-B Natriuret Pep Total Protein 8.7 H Albumin 5.0 Globulin 3.7 Albumin/Globulin Ratio 1.4 Lipase 104 U Opiates 300ng/mL cut Ur Oxycodone Screen Urine Methadone Screen Ur Barbiturates Screen U Tricyclic Antidepress Ur Phencyclidine Scrn Ur Amphetamines Screen U Methamphetamines Scrn Ur MDMA Scrn (Ecstasy) U Benzodiazepines Scrn Urine Cocaine Screen U Marijuana (THC) Screen Ethyl Alcohol 247 H SARS-CoV-2 (PCR) 06/21/21 06/21/21 06/21/21 17:40 17:54 18:26 WBC RBC Hgb Hct MCV MCH MCHC RDW Plt Count Neut % (Auto) Lymph % (Auto) [place] % (Auto) Eos % (Auto) Baso % (Auto) Neut # (Auto) Lymph # (Auto) [place] # (Auto) Eos # (Auto) Baso # (Auto) Sodium Potassium Chloride Carbon Dioxide BUN Creatinine Estimated GFR BUN/Creatinine Ratio Glucose Calcium Magnesium Total Bilirubin AST ALT Alkaline Phosphatase Ammonia Total Creatine Kinase CK-MB (CK-2) CK-MB (CK-2) Rel Index Troponin I NT-Pro-B Natriuret Pep 102 Total Protein Albumin Globulin Albumin/Globulin Ratio Lipase U Opiates 300ng/mL cut Negative Ur Oxycodone Screen Negative Urine Methadone Screen Negative Ur Barbiturates Screen Negative U Tricyclic Antidepress Negative Ur Phencyclidine Scrn Negative Ur Amphetamines Screen Negative U Methamphetamines Scrn Negative Ur MDMA Scrn (Ecstasy) Negative U Benzodiazepines Scrn Negative Urine Cocaine Screen Negative U Marijuana (THC) Screen Positive H Ethyl Alcohol SARS-CoV-2 (PCR) Negative 06/21/21 21:12 WBC RBC Hgb Hct MCV MCH MCHC RDW Plt Count Neut % (Auto) Lymph % (Auto) [place] % (Auto) Eos % (Auto) Baso % (Auto) Neut # (Auto) Lymph # (Auto) [place] # (Auto) Eos # (Auto) Baso # (Auto) Sodium Potassium Chloride Carbon Dioxide BUN Creatinine Estimated GFR BUN/Creatinine Ratio Glucose Calcium Magnesium Total Bilirubin AST ALT Alkaline Phosphatase Ammonia 10 Total Creatine Kinase CK-MB (CK-2) CK-MB (CK-2) Rel Index Troponin I NT-Pro-B Natriuret Pep Total Protein Albumin Globulin Albumin/Globulin Ratio Lipase U Opiates 300ng/mL cut Ur Oxycodone Screen Urine Methadone Screen Ur Barbiturates Screen U Tricyclic Antidepress Ur Phencyclidine Scrn Ur Amphetamines Screen U Methamphetamines Scrn Ur MDMA Scrn (Ecstasy) U Benzodiazepines Scrn Urine Cocaine Screen U Marijuana (THC) Screen Ethyl Alcohol SARS-CoV-2 (PCR) Assessment & Plan Assessment & Plan narrative: Yin Burch is a 51 female with PMH EtOH cirrhosis, with active alcohol abuse who presents with alcohol withdrawal. 1. EtoH withdrawal, in the setting of alcohol abuse, cirrhosis, with known varices, acute on chronic, present on admission -with known history of alcoholic w/d seizures -Etoh 247 -order WA protocol -Sz precautions -phenobarb prn for replacement, has been given total 2600mg IV, can give up to 750mg IV before becoming more careful about total dose (calculated as pt ideal body 50kg, 15mg/kg) -order MVI, thiamine, folate -Continue Nadolol- Hold diuretics-Lasix -DRUM TESTER Consult ordered -avoid dosing both phenobarb and benzos 2. Hypothyroidism, acquired, chronic, present on admission -continue cytomel, synthroid 3.. Bipolar disorder, with depression and anxiety, chronic, present on admission -continue hydroxyzine and sertraline, naltrexone, saphris 6. Non-Insulin dependent Type 2 Diabetes, chronic, present on admission -Glucose 207 -A1C ordered -hold metformin -ordered for low dose insulin sliding scale -Monitor for Hypo/Hyperglycemia -Admitted under DM protocol 7. Essential hypertension, acute on chronic, present on admission -BP 158/91 -recommend if tolerating orals in the am consider Lisinopril 20mg QD 8. Hyperlipidemia, chronic, present on admission -continue pravastatin 9. GERD, chronic, present on admission -continue omeprazole Code: Full Surrogate decision maker: Vitor Ruiz PCR: Negative DVT/VTE prophylaxis: Lovenox 40 mg and SCDs Disposition: Patient admitted for observation expected length of stay less than 2 midnights. I have utilized all available immediate resources to obtain, update, or review the patient's current medications. I confirmed that the patient's advanced care plan is present, Code status is documented and/or surrogate decision maker is listed in the patient's medical record. Time Spent With Patient Critical Care time: I spent a total of [] minutes of critical care time on this patient's care today; this time is exclusive of procedural time.
[2021-06-22 06:21] LABS: BUN Creatinine Ratio 8.3 (6-22); Blood Urea Nitrogen 3 mg/dL (7-17); Calcium 9.2 mg/dL (8.4-10.2); Carbon Dioxide 27 mmol/L (22-32); Chloride 103 mmol/L (98-107); Estimated Glomerular Filt Rate > 60.0 mL/min (>60); Glucose 161 mg/dL (70-100); HEMOLYSIS < 15 (0-50); Potassium 3.9 mmol/L (3.4-5.1); Sodium 135 mmol/L (137-145)
[2021-06-22 06:31] LABS: Hemoglobin A1C% w Est Avg Glu 6.5 % (4.0-6.0)
[2021-06-22] MEDS: ONDANSETRON 4 MG/2 ML INJ IV ×3 (08:16→20:57)
[2021-06-22] MEDS: ENOXAPARIN 40 MG/0.4 ML SYRINGE SUBCUT (08:19)
[2021-06-22] MEDS: INSULIN LISPRO 100 UNIT/ML 3ML VIAL SUBCUT (08:20)
[2021-06-22] MEDS: FOLIC ACID 1 MG TABLET PO (09:00)
[2021-06-22] MEDS: THIAMINE 100 MG TABLET PO (09:00)
[2021-06-22] MEDS: MULTIVITAMIN 1 TABLET 1 TAB PO (09:00)
[2021-06-22] MEDS: SODIUM CHLORIDE 0.9% 1,000 ML 80 ML IV ×2 (09:03→22:00)
[2021-06-22] MEDS: PHENobarbitaL 32.4 MG TABLET 64.8 MG PO (09:39)
--- NOTE | 2021-06-22 11:23 | CM.DANOTE ---
Patient is a 51 yo female who was a READMIT on 06/21/21 for ETOH withdrawal. Pt has [employer] and [facility] for insurance and her PCP is Dr. Miguel Ángel Leary. EMR was reviewed. Per MD, pt was last discharged on 06/05/21 for the same and remained sober a couple weeks before relapsing and being admitted for withdrawal again. SW met bedside with pt and explained role and she confirms remembering this SW from her prior admission a couple weeks ago and confirms that she remained sober for a couple weeks after d/c from the hospital but that it was hard but she made it to her f/u PCP appointment before relapsing when she found out about the of an extended family member a few days ago and has been drinking a large amount of alcohol daily. Prior to pt's last admission in May, she found it very difficult always having enough alcohol on hand since she was basically drinking around the clock to keep withdrawals at bay. Pt's last hx of [facility] tx was in [place] many years ago and her constant struggle to remain sober. Pt confirms that she has two close friends that are sober and supportive that she feels comfortable with seeking assist and support. Pt resides in [place] with her Sig Other who does not drink and does not like pt drinking but he also works in [employer] and [employer] and is gone most of the week days. Pt had followed through with her PCP prior to relapse and had spoken to her new Washery Boss through [facility] (Alecia [phone]) who plans to assist pt in coordinating her outpt services and care. But pt had not followed through yet with scheduling an appointment for [facility] tx providers that had been given to pt at prior admission in May including [facility], [facility], [facility], etc.. Pt confirms she is having difficulty following through with scheduling ETOH tx but wants to and also would like to try to establish with maybe a Psychiatrist/therapist as well and has not been able to figure out setting up Medicaid transport for these type of appointments. ANNITA discussed if pt remains here until Mon (since this is the weekend) calls can maybe be made with pt to set up outpt services and call to Alecia her [facility] Washery Boss to help coordinate outpt supportive services. Pt very appreciative and apologetic for returning again for detox. ANNITA also called [facility] in [place] and confirmed today they are full but to call back tomorrow Judy to determine if they have any openings as they do provide higher level of medical detox than [facility]. SW called Alecia with [facility] and left msg requesting return call on Thursday to discuss how [facility] can best support pt at d/c with follow through and understanding process for scheduling medicaid transport for appointments to reduce risk of readmit. Plan: SW to follow closely for assist with pt scheduling outpt appointments for ETOH, mental health, and f/u with [facility] casemanager to reduce pt's risk of readmit for ETOH detox. BEATRICE Rhodes Discharge Planning/Care Management CM Discharge Assessment Start: 06/22/21 11:20 Freq: Status: Active Protocol: Document 06/22/21 11:20 BF (Rec: 06/22/21 11:23 BF [id number]) Discharge Planning Assessment Assigned Tube Teller BEATRICE Richardson DPOA/Assigned Designee Name none Advance Directives? No Advance Directives on File No History Provided By Patient,Medical Record Has Patient been admitted in last 30 Yes days? Comment Recently discharged on 06/05/21 for ETOH withdrawal/detox to home with resources Prior Living Arrangements House Household Members significant other Type of transporation used prior to Medicaid Transport admit Independent with ADL's Yes Is patient alert and oriented? Yes Caregiver for Another No Comment She has a walkin shower Barriers to Discharge No Discharge Plan Home Community Services Transportation Transportation Arrangement Family or significant other can provide transport home. Referrals Initiated Other Additional Comment Patient needs dental referral/ appointment. Outpt ETOH resources provided. Whiteboard Updated in Patient Room with Yes name and ext. # of Tube Teller Review Status In Process Please Provide Date Initial DC 06/22/21 Assessment Was Performed Next Review Type Continued Stay Review
[2021-06-22] MEDS: PHENobarbitaL 32.4 MG TABLET PO (11:27)
--- NOTE | 2021-06-22 12:01 | PM.PN.1 ---
Subjective Subjective Date Patient Seen: 06/22/21 Time Patient Seen: 12:01 Interval history: This is a 51-year-old female admitted with alcohol withdrawal. This morning she complained of continued tremulousness, palpitations, nausea, and anxiety. Denies any fevers or chills. She has not had no chest pain and denies shortness of breath. Exam Vital Signs (past 8 hours): - 06/22/21 04:11 06/22/21 04:15 06/22/21 08:00 Temperature 97.5 F L 98.1 F Pulse Rate 87 85 Respiratory Rate 16 17 Blood Pressure 162/93 H 153/80 H Pulse Oximetry 98 98 93 06/22/21 09:17 06/22/21 10:02 Temperature Pulse Rate Respiratory Rate Blood Pressure Pulse Oximetry 96 94 Oxygen Delivery Method Room Air Oxygen Flow Rate 0 Narrative Exam Narrative: General:? Patient is a well-developed, well-nourished female, anxious and tremulous. HEENT:? Normocephalic, atraumatic, extraocular muscles intact, oral pharynx is clear and mucous membranes are moist.? Neck: supple and symmetric, trachea is midline, no adenopathy, no thyroid enlargement, nontender, no masses palpated.? Negative for JVD Chest:? Normal AP diameter and contour without kyphoscoliosis, no nasal flaring, retractions, or tachypneic labored Lungs:? CTA b/l, no wheezes rhonchi or rales. Cardio:? regular rate and rhythm without murmur, rubs, or gallops Abdomen:? S NT ND Musculoskeletal:? no deformity, crepitus, effusions Extremities: No cyanosis, clubbing or edema present.? Skin:? Warm dry and intact without rashes, ulcerations or petechiae.? Neuro:? Alert and orientated x3, strength is +5/5 in all extremities, sensation to touch intact, no gross deficits noted of cranial nerves. +tremulous and tongue fasciculations. Psych:? anxious with pressured speech, but appropriate and linear thought. Objective Labs Result Diagrams: 06/21/21 17:40 06/22/21 05:30 Labs: Laboratory Results - last 24 hr 06/21/21 06/21/21 06/21/21 17:40 17:40 17:40 WBC 9.7 RBC 5.26 H Hgb 13.5 Hct 40.4 MCV 76.9 L MCH 25.7 L MCHC 33.4 RDW 16.6 H Plt Count 474 H Neut % (Auto) 57.4 Lymph % (Auto) 34.7 [place] % (Auto) 4.2 Eos % (Auto) 0.4 L Baso % (Auto) 3.3 H Neut # (Auto) 5600 Lymph # (Auto) 3400 [place] # (Auto) 400 Eos # (Auto) 0 Baso # (Auto) 300 H Sodium 141 Potassium 4.3 Chloride 102 Carbon Dioxide 27 BUN < 2 L Creatinine 0.34 L Estimated GFR > 60.0 BUN/Creatinine Ratio 5.9 L Glucose 207 H Hemoglobin A1c Calcium 10.0 Magnesium 2.0 Total Bilirubin 0.3 AST 33 ALT 48 H Alkaline Phosphatase 143 H Ammonia Total Creatine Kinase 27 L CK-MB (CK-2) TNP CK-MB (CK-2) Rel Index TNP Troponin I < 0.012 NT-Pro-B Natriuret Pep Total Protein 8.7 H Albumin 5.0 Globulin 3.7 Albumin/Globulin Ratio 1.4 Lipase 104 U Opiates 300ng/mL cut Ur Oxycodone Screen Urine Methadone Screen Ur Barbiturates Screen U Tricyclic Antidepress Ur Phencyclidine Scrn Ur Amphetamines Screen U Methamphetamines Scrn Ur MDMA Scrn (Ecstasy) U Benzodiazepines Scrn Urine Cocaine Screen U Marijuana (THC) Screen Ethyl Alcohol 247 H SARS-CoV-2 (PCR) 06/21/21 06/21/21 06/21/21 17:40 17:40 17:54 WBC RBC Hgb Hct MCV MCH MCHC RDW Plt Count Neut % (Auto) Lymph % (Auto) [place] % (Auto) Eos % (Auto) Baso % (Auto) Neut # (Auto) Lymph # (Auto) [place] # (Auto) Eos # (Auto) Baso # (Auto) Sodium Potassium Chloride Carbon Dioxide BUN Creatinine Estimated GFR BUN/Creatinine Ratio Glucose Hemoglobin A1c 6.5 H Calcium Magnesium Total Bilirubin AST ALT Alkaline Phosphatase Ammonia Total Creatine Kinase CK-MB (CK-2) CK-MB (CK-2) Rel Index Troponin I NT-Pro-B Natriuret Pep 102 Total Protein Albumin Globulin Albumin/Globulin Ratio Lipase U Opiates 300ng/mL cut Ur Oxycodone Screen Urine Methadone Screen Ur Barbiturates Screen U Tricyclic Antidepress Ur Phencyclidine Scrn Ur Amphetamines Screen U Methamphetamines Scrn Ur MDMA Scrn (Ecstasy) U Benzodiazepines Scrn Urine Cocaine Screen U Marijuana (THC) Screen Ethyl Alcohol SARS-CoV-2 (PCR) Negative 06/21/21 06/21/21 06/22/21 18:26 21:12 05:30 WBC RBC Hgb Hct MCV MCH MCHC RDW Plt Count Neut % (Auto) Lymph % (Auto) [place] % (Auto) Eos % (Auto) Baso % (Auto) Neut # (Auto) Lymph # (Auto) [place] # (Auto) Eos # (Auto) Baso # (Auto) Sodium 135 L Potassium 3.9 Chloride 103 Carbon Dioxide 27 BUN 3 L Creatinine 0.36 L Estimated GFR > 60.0 BUN/Creatinine Ratio 8.3 Glucose 161 H Hemoglobin A1c Calcium 9.2 Magnesium Total Bilirubin AST ALT Alkaline Phosphatase Ammonia 10 Total Creatine Kinase CK-MB (CK-2) CK-MB (CK-2) Rel Index Troponin I NT-Pro-B Natriuret Pep Total Protein Albumin Globulin Albumin/Globulin Ratio Lipase U Opiates 300ng/mL cut Negative Ur Oxycodone Screen Negative Urine Methadone Screen Negative Ur Barbiturates Screen Negative U Tricyclic Antidepress Negative Ur Phencyclidine Scrn Negative Ur Amphetamines Screen Negative U Methamphetamines Scrn Negative Ur MDMA Scrn (Ecstasy) Negative U Benzodiazepines Scrn Negative Urine Cocaine Screen Negative U Marijuana (THC) Screen Positive H Ethyl Alcohol SARS-CoV-2 (PCR) PFS Medical History Anxiety Avascular necrosis of bone of hip Bipolar disorder Chicken pox Chlamydia (~1988) Cirrhosis Colon polyp COPD (chronic obstructive pulmonary disease) Depression Esophageal varices Esophageal web Hayfever Hemorrhoids Hypothyroidism (1997) Irregular periods/menstrual cycles MRSA infection Pancytopenia Papillary adenocarcinoma of thyroid Seizures Shoulder pain Substance abuse Surgical History Anesthesia complication History of adenoidectomy History of bunionectomy History of dilation and curettage History of esophageal surgery (2016) History of left hip replacement (08/2017) History of placement of ear tubes History of right hip replacement (11/2017) History of tonsillectomy History of total thyroidectomy (1997) Family History Father No problems noted. Mother Depression Hyperlipidemia Thyroid disorder Mental health problem Brother No problems noted. Grandfather Lung cancer Cancer Grandmother Thyroid disorder Potassium disorder Hyperlipidemia Hypertension Grandfather No problems noted. Grandmother No problems noted. Family/Other No problems noted. Social History household members: significant other Smoking Status: Current some day smoker alcohol intake: current substance use type: does not use eating out: rarely or never Type(s) of exercise: none Assessment & Plan Assessment & Plan narrative: Yin Burch is a 51 female with PMH EtOH cirrhosis, with active alcohol abuse who presents with alcohol withdrawal. 1. EtoH withdrawal, in the setting of alcohol abuse, cirrhosis, with known varices, acute on chronic, present on admission -with known history of alcoholic w/d seizures -Etoh 247 -continue CIWA protocol -Sz precautions -continue phenobarb taper, increased today for continued symptoms. -MVI, thiamine, folate -Continue Nadolol- Hold diuretics-Lasix -IT CONSULTING MANAGER Consult ordered 2. Hypothyroidism, acquired, chronic, present on admission -continue cytomel, synthroid 3.. Bipolar disorder, with depression and anxiety, chronic, present on admission -continue hydroxyzine and sertraline, naltrexone, saphris ? 6. Non-Insulin dependent Type 2 Diabetes, chronic, present on admission -Glucose 207 -A1C with good control at 6.5% -hold metformin for now. -ordered for low dose insulin sliding scale -Monitor for Hypo/Hyperglycemia -Admitted under DM protocol 7. Essential hypertension, acute on chronic, present on admission -BP 158/91 likely in setting of withdrawal. No dose adjustments at this time. 8. Hyperlipidemia, chronic, present on admission -continue pravastatin 9. GERD, chronic, present on admission -continue omeprazole Code: Full Surrogate decision maker: Vitor Ruiz PCR: Negative DVT/VTE prophylaxis:? Lovenox 40 mg and SCDs Disposition:? Inpatient, anticipate discharge home in 2-3 more days, possibly longer given prior etoh seizures. I have utilized all available immediate resources to obtain, update, or review the patient's current medications. I confirmed that the patient's advanced care plan is present, Code status is documented and/or surrogate decision maker is listed in the patient's medical record. Time Spent With Patient Critical Care time: I spent a total of [] minutes of critical care time on this patient's care today; this time is exclusive of procedural time.
[2021-06-22] MEDS: PHENobarbitaL 32.4 MG TABLET 97.2 MG PO ×3 (13:17→21:02)
[2021-06-22] MEDS: SODIUM CHLORIDE 0.9% FLUSH 10 ML IV ×3 (13:19→20:57)
--- NOTE | 2021-06-22 13:24 | PC.NURSE ---
Patient requested to sleep through lunch, then awoke at 1300, diaphoretic, anxious and having dry heaves. 4mg zofran given along with scheduled dose of phenobarbital PO. CIWA 16, Dr Kitchen aware, new orders received.
[2021-06-22] MEDS: PHENobarbital 65 MG/ML VIAL 130 MG IV (14:09)
[2021-06-23] VITALS (15 sets, daily range): BP systolic 146–153; BP diastolic 78–98; PULSE 68–80; RESP 17–18; TEMP 36.6–37.3; O2SAT 95–99
[2021-06-23] MEDS: IBUPROFEN 600 MG TABLET PO (02:35)
--- NOTE | 2021-06-23 03:01 | PC.NURSE ---
Pt resting on and off tonight, refusing midnight v/s to sleep. ON tele SR. Pt asking questions about intensive alcohol rehab. ciwa tonight 3 and 4. pt c/o headache earlier when ciwa was 4, stake she normally takes ibuprofen, spoke to Dr. Garcia, order taken for ibuprofen 600 mg every 6 hours as needed. Will continue to monitor.
[2021-06-23] MEDS: FOLIC ACID 1 MG TABLET PO (07:19)
[2021-06-23] MEDS: MULTIVITAMIN 1 TABLET 1 TAB PO (07:19)
[2021-06-23] MEDS: ENOXAPARIN 40 MG/0.4 ML SYRINGE SUBCUT (07:19)
[2021-06-23] MEDS: THIAMINE 100 MG TABLET PO (07:19)
[2021-06-23] MEDS: PHENobarbitaL 32.4 MG TABLET 64.8 MG PO (07:19)
[2021-06-23] MEDS: ONDANSETRON 4 MG/2 ML INJ IV ×2 (07:23→19:14)
[2021-06-23] MEDS: LORazepam 1 MG TABLET PO (09:57)
[2021-06-23] MEDS: PHENobarbitaL 32.4 MG TABLET PO (09:57)
[2021-06-23] MEDS: SODIUM CHLORIDE 0.9% 1,000 ML 80 ML IV (12:19)
--- NOTE | 2021-06-23 14:57 | CM.DANOTE ---
DCP/continued: Reviewed chart. Patient known to this AUTOMATED EQUIPMENT ENGINEER TECHNICIAN from recent visit. Met briefly with patient today explained role. Patient reports that she stayed sober for awhile. Patient attributes her current drinking to the current loss of her stepfather. Patient reports that she is agreeable to alcohol treatment when stable. Provider reports that patient is not currently stable. Patient currently on phenobarbital for ETOH withdrawals. Provider requesting that AUTOMATED EQUIPMENT ENGINEER TECHNICIAN check with [facility] on whether or not they can administer that medication. AUTOMATED EQUIPMENT ENGINEER TECHNICIAN placed call to [facility] ph# [phone] they report that they can administer with medical sociologist's clearance. [facility] hopeful that they might have beds within the next day or two. AUTOMATED EQUIPMENT ENGINEER TECHNICIAN updated provider and gave name/number to patient to call tomorrow for intake interview. In addition, will ask AUTOMATED EQUIPMENT ENGINEER TECHNICIAN to follow up with provider on the best time for patient to call. P: Pending RAMIRO
[2021-06-23] MEDS: PHENobarbitaL 32.4 MG TABLET 97.2 MG PO ×2 (15:02→20:45)
--- NOTE | 2021-06-23 15:04 | P.PN_ITS ---
Subjective Subjective Date Patient Seen: 06/23/21 Time Patient Seen: 11:30 Interval history: This is a 51-year-old female admitted with alcohol withdrawal.? This morning she complained of continued tremulousness, palpitations, nausea, and anxiety though much improved since yesterday.? Denies any fevers or chills.? She has not had no chest pain and denies shortness of breath. Exam Vital Signs (past 8 hours): - 06/23/21 08:00 06/23/21 08:55 06/23/21 10:03 Temperature 97.8 F Pulse Rate 68 Respiratory Rate 18 Blood Pressure 153/95 H Pulse Oximetry 99 98 98 06/23/21 10:48 06/23/21 11:16 06/23/21 12:00 Temperature 98 F Pulse Rate 74 74 Respiratory Rate 18 18 Blood Pressure 149/78 H 149/78 H Pulse Oximetry 96 96 Oxygen Delivery Method Room Air Oxygen Flow Rate 0 Narrative Exam Narrative: General:? Patient is a well-developed, well-nourished female, anxious and tremulous. HEENT:? Normocephalic, atraumatic, extraocular muscles intact, oral pharynx is clear and mucous membranes are moist.? Neck: supple and symmetric, trachea is midline, no adenopathy, no thyroid enlargement, nontender, no masses palpated.? Negative for JVD Chest:? Normal AP diameter and contour without kyphoscoliosis, no nasal flaring, retractions, or tachypneic labored Lungs:? CTA b/l, no wheezes rhonchi or rales. Cardio:? regular rate and rhythm without murmur, rubs, or gallops Abdomen:? S NT ND Musculoskeletal:? no deformity, crepitus, effusions Extremities: No cyanosis, clubbing or edema present.? Skin:? Warm dry and intact without rashes, ulcerations or petechiae.? Neuro:? Alert and orientated x3, strength is +5/5 in all extremities, sensation to touch intact, no gross deficits noted of cranial nerves. +tremulous and tongue fasciculations though improved. Psych:? anxious with pressured speech, but appropriate and linear thought. Objective Labs Result Diagrams: 06/21/21 17:40 06/22/21 05:30 [facility] Medical History Anxiety Avascular necrosis of bone of hip Bipolar disorder Chicken pox Chlamydia (~1988) Cirrhosis Colon polyp COPD (chronic obstructive pulmonary disease) Depression Esophageal varices Esophageal web Hayfever Hemorrhoids Hypothyroidism (1997) Irregular periods/menstrual cycles MRSA infection Pancytopenia Papillary adenocarcinoma of thyroid Seizures Shoulder pain Substance abuse Surgical History Anesthesia complication History of adenoidectomy History of bunionectomy History of dilation and curettage History of esophageal surgery (2016) History of left hip replacement (08/2017) History of placement of ear tubes History of right hip replacement (11/2017) History of tonsillectomy History of total thyroidectomy (1997) Family History Father No problems noted. Mother Depression Hyperlipidemia Thyroid disorder Mental health problem Brother No problems noted. Grandfather Lung cancer Cancer Grandmother Thyroid disorder Potassium disorder Hyperlipidemia Hypertension Grandfather No problems noted. Grandmother No problems noted. Family/Other No problems noted. Social History household members: significant other Smoking Status: Current some day smoker alcohol intake: current substance use type: does not use eating out: rarely or never Type(s) of exercise: none Assessment & Plan Assessment & Plan narrative: Yin Burch is a 51 female with PMH EtOH cirrhosis, with active alcohol abuse who is admitted with alcohol withdrawal. 1. EtoH withdrawal, in the setting of alcohol abuse, cirrhosis, with known cristian ices, acute on chronic, present on admission -with known history of alcoholic w/d seizures -Etoh 247 -continue CIWA protocol -Sz precautions -continue phenobarb taper, increased today for continued symptoms. -MVI, thiamine, folate -Continue Nadolol- Hold diuretics-Lasix -ALTERATION SPECIALIST Consult ordered 2. Hypothyroidism, acquired, chronic, present on admission -continue cytomel, synthroid 3.. Bipolar disorder, with depression and anxiety, chronic, present on admission -continue hydroxyzine and sertraline, naltrexone, saphris ? 6. Non-Insulin dependent Type 2 Diabetes, chronic, present on admission -Glucose 207 -A1C with good control at 6.5% -hold metformin for now. -ordered for low dose insulin sliding scale -Monitor for Hypo/Hyperglycemia -Admitted under DM protocol 7. Essential hypertension, acute on chronic, present on admission -BP 158/91 likely in setting of withdrawal. No dose adjustments at this time. 8. Hyperlipidemia, chronic, present on admission -continue pravastatin 9. GERD, chronic, present on admission -continue omeprazole Code: Full Surrogate decision maker: Vitor Ruiz PCR: Negative DVT/VTE prophylaxis:? Lovenox 40 mg Disposition:? Inpatient, anticipate discharge to inpatient rehab in 1-2 more days depending on symptoms and if able to take on phenobarb taper. Time Spent With Patient Critical Care time: I spent a total of [] minutes of critical care time on this patient's care today; this time is exclusive of procedural time.
[2021-06-24] VITALS (15 sets, daily range): BP systolic 122–155; BP diastolic 70–83; PULSE 63–98; RESP 16–18; TEMP 35.9–36.8; O2SAT 96–99
[2021-06-24] MEDS: LORazepam 1 MG TABLET PO ×3 (00:36→17:56)
[2021-06-24] MEDS: SODIUM CHLORIDE 0.9% 1,000 ML 80 ML IV (00:36)
[2021-06-24] MEDS: PHENobarbitaL 32.4 MG TABLET 64.8 MG PO ×3 (06:22→21:14)
[2021-06-24 06:57] LABS: Calcium 8.7 mg/dL (8.4-10.2); Carbon Dioxide 28 mmol/L (22-32); Chloride 106 mmol/L (98-107); Estimated Glomerular Filt Rate > 60.0 mL/min (>60); Glucose 116 mg/dL (70-100); HEMOLYSIS < 15 (0-50); Potassium 3.3 mmol/L (3.4-5.1); Sodium 135 mmol/L (137-145)
[2021-06-24 06:58] LABS: BUN Creatinine Ratio 5.1 (6-22); Blood Urea Nitrogen < 2 mg/dL (7-17)
[2021-06-24] MEDS: ENOXAPARIN 40 MG/0.4 ML SYRINGE SUBCUT (10:02)
[2021-06-24] MEDS: SODIUM CHLORIDE 0.9% FLUSH 10 ML IV ×2 (10:02→21:13)
[2021-06-24] MEDS: MULTIVITAMIN 1 TABLET 1 TAB PO (10:02)
[2021-06-24] MEDS: THIAMINE 100 MG TABLET PO (10:02)
[2021-06-24] MEDS: FOLIC ACID 1 MG TABLET PO (10:02)
--- NOTE | 2021-06-24 12:57 | PM.PN.1 ---
Subjective Subjective Date Patient Seen: 06/24/21 Time Patient Seen: 08:00 Interval history: Today she is improved. She feels skin crawling. Otherwise no signs/symptoms of withdrawal. Exam Vital Signs (past 8 hours): - 06/24/21 08:00 06/24/21 09:42 Temperature 96.7 F L Pulse Rate 76 Respiratory Rate 18 Blood Pressure 129/70 Pulse Oximetry 97 96 Oxygen Delivery Method Room Air Oxygen Flow Rate 0 Narrative Exam Narrative: General:?no acute distress Lungs:? clear bilaterally Cardio:? regular rate and rhythm without murmur, rubs, or gallops Abdomen:? soft, nontender Skin:? Warm dry and intact without rashes Neuro:? no tremors, moving all extremities Psych:? anxious, but appropriate and linear thought. Objective Labs Result Diagrams: 06/21/21 17:40 06/24/21 06:15 Labs: Laboratory Results - last 24 hr 06/24/21 06:15 Sodium 135 L Potassium 3.3 L Chloride 106 Carbon Dioxide 28 BUN < 2 L Creatinine 0.39 L Estimated GFR > 60.0 BUN/Creatinine Ratio 5.1 L Glucose 116 H Calcium 8.7 PFSH Medical History Anxiety Avascular necrosis of bone of hip Bipolar disorder Chicken pox Chlamydia (~1988) Cirrhosis Colon polyp COPD (chronic obstructive pulmonary disease) Depression Esophageal varices Esophageal web Hayfever Hemorrhoids Hypothyroidism (1997) Irregular periods/menstrual cycles MRSA infection Pancytopenia Papillary adenocarcinoma of thyroid Seizures Shoulder pain Substance abuse Surgical History Anesthesia complication History of adenoidectomy History of bunionectomy History of dilation and curettage History of esophageal surgery (2016) History of left hip replacement (08/2017) History of placement of ear tubes History of right hip replacement (11/2017) History of tonsillectomy History of total thyroidectomy (1997) Family History Father No problems noted. Mother Depression Hyperlipidemia Thyroid disorder Mental health problem Brother No problems noted. Grandfather Lung cancer Cancer Grandmother Thyroid disorder Potassium disorder Hyperlipidemia Hypertension Grandfather No problems noted. Grandmother No problems noted. Family/Other No problems noted. Social History household members: significant other Smoking Status: Current some day smoker alcohol intake: current substance use type: does not use eating out: rarely or never Type(s) of exercise: none Assessment & Plan Assessment & Plan narrative: Yin Burch is a 51 female with PMH EtOH cirrhosis, with active alcohol abuse who is admitted with alcohol withdrawal. 1. EtoH withdrawal, in the setting of alcohol abuse, cirrhosis, with known varices, acute on chronic, present on admission -with known history of alcoholic w/d seizures -Etoh 247 -continue CIWA protocol -Sz precautions -continue phenobarb taper -MVI, thiamine, folate -Continue Nadolol- Hold diuretics-Lasix -DESTATICIZER FEEDER Consult ordered 2. Hypothyroidism, acquired, chronic, present on admission -continue cytomel, synthroid 3.. Bipolar disorder, with depression and anxiety, chronic, present on admission -continue hydroxyzine and sertraline, naltrexone, saphris ? 6. Non-Insulin dependent Type 2 Diabetes, chronic, present on admission -Glucose 207 -A1C with good control at 6.5% -hold metformin for now. -ordered for low dose insulin sliding scale -Monitor for Hypo/Hyperglycemia -Admitted under DM protocol 7. Essential hypertension, acute on chronic, present on admission -BP 158/91 likely in setting of withdrawal. No dose adjustments at this time. 8. Hyperlipidemia, chronic, present on admission -continue pravastatin 9. GERD, chronic, present on admission -continue omeprazole Code: Full Surrogate decision maker: Vitor Ruiz PCR: Negative DVT/VTE prophylaxis:? Lovenox 40 mg Disposition:? patient medically stable to discharge to detox, with plan for a few more days of phenobarbital taper. Time Spent With Patient Critical Care time: I spent a total of [] minutes of critical care time on this patient's care today; this time is exclusive of procedural time.
[2021-06-24] MEDS: POTASSIUM CHLORIDE 20 MEQ TAB 40 MEQ PO ×2 (13:00→17:56)
--- NOTE | 2021-06-24 13:25 | CM.DPC ---
DCP Cont: Per MD, pt still requiring some taper for withdrawals but not scoring on CIWA but hx of seizures and significant alcohol abuse. Pt could be stable for d/c to detox center if available. ANNITA called [facility] in [place] and confirmed they may have an opening and can manage pt's Phenobarbital but would need the Rx filled prior to d/c so they can administer to pt but not fill it. SW called [facility] and they do not have any Phenobarbital in house. SW called pt's primary pharmacy [facility] and no answer in their pharmacy. SW met bedside with pt and updated on above and provided [facility] contact number and pt agreeable with calling to start the Phone Screen. Pt called and [facility] now is full but anticipates a bed early in the AM and request pt calls at 0600 and pt set her alarm on her phone to call. Pt also confirms her mom lives in [place] and could likely go warehouse order picker pt's Phenobarbital from [facility] if needed. SW also called [facility] and they are full until Thursday06/28/21. SW called [facility] and they are full today and suggest calling back this evening. Plan: SW to follow for plan of pt likely remaining this evening and calling [facility] first thing in AM towards getting her into their detox tomorrow and then treatment. BEATRICE Rhodes
[2021-06-24] MEDS: IBUPROFEN 600 MG TABLET PO (14:25)
[2021-06-25] VITALS (8 sets, daily range): BP systolic 125–156; BP diastolic 82–87; PULSE 66–79; RESP 16–18; TEMP 35.6–37.1; O2SAT 96–100
[2021-06-25] MEDS: PHENobarbitaL 32.4 MG TABLET 64.8 MG PO ×2 (05:06→13:05)
[2021-06-25 06:39] LABS: Calcium 8.8 mg/dL (8.4-10.2); Carbon Dioxide 29 mmol/L (22-32); Chloride 103 mmol/L (98-107); Estimated Glomerular Filt Rate > 60.0 mL/min (>60); Glucose 104 mg/dL (70-100); HEMOLYSIS < 15 (0-50); Sodium 135 mmol/L (137-145)
[2021-06-25 07:03] LABS: BUN Creatinine Ratio 4.9 (6-22); Blood Urea Nitrogen < 2 mg/dL (7-17)
--- NOTE | 2021-06-25 07:58 | CM.DPC ---
Addendum entered by BEATRICE Rhodes 06/25/21 12:51: ADD: SW called [facility] bedside with pt present and was told they are now full and cannot accept and did not complete phone intake with pt. SW called [facility] and [facility] and both also full. Per MD, pt is stable for d/c today and not scoring on CIWA. SW met bedside with pt and due to her brain injury has difficulty with organization and follow through and very agreeable and appreciative but admits to being easily overwhelmed and requests assist with scheduling her first intake assessment for ETOH tx and setting up Medicaid transport for the first time. SW helped pt place calls to [facility] facilities and [facility] able to schedule an appointment for pt on Thu07/01/21 at 1000 with [facility] [address] by [facility]. SW also helped pt call Medicaid transport and schedule taxi for her [facility] appointment but states pt will likely need to use bus passes, gas vouchers, or try Paratransit for ongoing appointments. Pt thinks she may qualify for Paratransit as she has a handicap parking pass due to her mobility issues already or that her mom can transport her with gas vouchers. SW called pt's [facility] coordinator Alecia [phone] bedside with pt and updated on above and informed her of pt's difficulty with organizing and requested that she assist pt with applying for [employer]rans[employer] and Alecia confirms that she can assist with this and will f/u with pt after her [facility] intake as well. Plan: Patient's mother to provide transport home this afternoon likely between [id number] after pt's last dose of phenobarbital. BEATRICE Rhodes Original Note: DCP Detox/Tx SW called [facility] first thing this morning and confirmed they have open beds for Detox/stabilization but already have people calling in phone screens and encouraged pt to call marita. SW met bedside with pt and explained above and potential that today would be either going to [facility] for further stabilization and assist in getting into ETOH tx or d/c to home if medically stable. Pt confirms she is still agreeable for [facility] and calling their facility now. Plan: SW will check in with pt and [facility] in a few min to see if [facility] would like pt's medical clinicals to be faxed to review to confirm they can accept her. BEATRICE Rhodes
--- NOTE | 2021-06-25 08:36 | DIET.CONS ---
Dietary Consultation Note Admission Date: 06/21/2021 20:51 Assessment: 51y F well known to RD team seen recently for etoh withdrawl. Pt would like to enroll in DSME as part of her care plan for sobriety. Pt headed to detox/tx for etoh. RDs to contact pt upon d/c to schedule f/u. Ht: 157.48 cm Wt: 81.6 kg BMI: 34.4 UBW: Last BM: 06/24/21 (06/24/21 18:00) MNA: 12 Jackson Score: 20 Diet: 06/21/21 Breakfast Carbohydrate Consistent Diet Diet Modifications: Carbohydrate level: Small (2 CHO) Nutrition Percent Meal Consumed 100% 06/24/21 12:00 Percent Meal Consumed pt refused 06/24/21 11:09 Labs: RBC 5.26 X10^6/uL (4.0-5.2) H 06/21/21 17:40 Hgb 13.5 g/dL (12.0-16.0) 06/21/21 17:40 Hct 40.4 % (36-46) 06/21/21 17:40 Creatinine 0.41 mg/dL (0.52-1.04) L 06/25/21 05:34 Hemoglobin A1c 6.5 % (4.0-6.0) H 06/21/21 17:40 NT-Pro-B Natriuret Pep 102 pg/mL (<125) 06/21/21 17:40 Electronically Signed by: Citlaly Brown 06/25/21 08:36 Clinical Dietitian [address] [id number]
[2021-06-25] MEDS: SODIUM CHLORIDE 0.9% FLUSH 10 ML IV (09:40)
[2021-06-25] MEDS: FOLIC ACID 1 MG TABLET PO (09:40)
[2021-06-25] MEDS: ENOXAPARIN 40 MG/0.4 ML SYRINGE SUBCUT (09:40)
[2021-06-25] MEDS: THIAMINE 100 MG TABLET PO (09:40)
[2021-06-25] MEDS: MULTIVITAMIN 1 TABLET 1 TAB PO (09:40)
[2021-06-25] MEDS: LORazepam 1 MG TABLET PO (11:50)
--- NOTE | 2021-06-25 14:33 | P.PN_ITS ---
Subjective Subjective Interval history: Patient denies any tremulousness, hallucinations, seizure-like activity. She reports feeling back to her baseline and wants to go home. Exam Vital Signs (past 8 hours): - 06/25/21 07:00 06/25/21 07:53 06/25/21 08:00 Temperature 97.0 F L Pulse Rate 79 Respiratory Rate 16 Blood Pressure 139/82 Pulse Oximetry 97 97 97 06/25/21 11:00 06/25/21 12:28 Temperature 98.8 F Pulse Rate 69 Respiratory Rate 18 Blood Pressure 156/84 H Pulse Oximetry 98 96 Oxygen Delivery Method Room Air Oxygen Flow Rate 0 Narrative Exam Narrative: General: laying in bed comfortably, and in no apparent acute distress Lungs: clear to auscultation bilaterally Cardio: regular rate and rhythm, without murmur, rubs, or gallops Abdomen: soft, non-tender, non-distended, bowel sounds present Skin: warm, dry, and intact without rashes Neuro: no tremors, moving all extremities Psych: pleasant, cooperative Objective Labs Result Diagrams: 06/21/21 17:40 06/25/21 05:34 Labs: Laboratory Results - last 24 hr 06/25/21 05:34 Sodium 135 L Potassium 4.0 Chloride 103 Carbon Dioxide 29 BUN < 2 L Creatinine 0.41 L Estimated GFR > 60.0 BUN/Creatinine Ratio 4.9 L Glucose 104 H Calcium 8.8 PFSH Medical History Anxiety Avascular necrosis of bone of hip Bipolar disorder Chicken pox Chlamydia (~1988) Cirrhosis Colon polyp COPD (chronic obstructive pulmonary disease) Depression Esophageal varices Esophageal web Hayfever Hemorrhoids Hypothyroidism (1997) Irregular periods/menstrual cycles MRSA infection Pancytopenia Papillary adenocarcinoma of thyroid Seizures Shoulder pain Substance abuse Surgical History Anesthesia complication History of adenoidectomy History of bunionectomy History of dilation and curettage History of esophageal surgery (2016) History of left hip replacement (08/2017) History of placement of ear tubes History of right hip replacement (11/2017) History of tonsillectomy History of total thyroidectomy (1997) Family History Father No problems noted. Mother Depression Hyperlipidemia Thyroid disorder Mental health problem Brother No problems noted. Grandfather Lung cancer Cancer Grandmother Thyroid disorder Potassium disorder Hyperlipidemia Hypertension Grandfather No problems noted. Grandmother No problems noted. Family/Other No problems noted. Social History household members: significant other Smoking Status: Current some day smoker alcohol intake: current substance use type: does not use eating out: rarely or never Type(s) of exercise: none Assessment & Plan Assessment & Plan narrative: Yin Burch is a 51 female with PMH EtOH cirrhosis, with active alcohol abuse who is admitted with alcohol withdrawal. 1. EtoH withdrawal, in the setting of alcohol abuse, cirrhosis, with known varices, acute on chronic, present on admission -with known history of alcoholic withdrawal seizures, EtOH 247 on admission 2. Hypothyroidism, acquired, chronic, present on admission -continue cytomel, synthroid 3.. Bipolar disorder, with depression and anxiety, chronic, present on admission -continue hydroxyzine and sertraline, naltrexone, saphris ? 6. Non-Insulin dependent Type 2 Diabetes, chronic, present on admission -A1C with good control at 6.5% 7. Essential hypertension, acute on chronic, present on admission -BP 158/91 likely in setting of withdrawal. No dose adjustments at this time. 8. Hyperlipidemia, chronic, present on admission -continue pravastatin 9. GERD, chronic, present on admission -continue omeprazole Code: Full Surrogate decision maker: Vitor I have utilized all available immediate resources to obtain, update, or review the patient's current medications. Time Spent With Patient Critical Care time: I spent a total of [] minutes of critical care time on this patient's care today; this time is exclusive of procedural time.
--- NOTE | 2021-06-25 14:41 | P.DS_ITS ---
History of Present Illness History of Present Illness Chief complaint: ETOH withdrawl Narrative: Yin Burch is a 51-year-old female.? Has a history of alcohol abuse.? I evaluated her and admitted her to the hospital within the past month for alcohol withdrawal.? Patient states that after she was discharged she did spend a period of time without any drinking but then found out that her stepfather who lives in another state and there were other family medical issues.? She started drinking again.? Has been drinking on a daily basis.? She drink this morning.?? Patient has had withdrawal seizures in the past.?Patient had previously reported beening sober x 1 year, prior to her last admit. The patient reports that she drinks 12 pack of 16oz beers, and 4-5 small hotel bottles of Fireball daily. She is here seeking help for alcohol withdrawal. The patient denies chest pain, palpations, shortness of breath, abdominal pain, nausea, vomiting, fever, body aches, chills, cough, urinary symptoms, bowel symptoms, peripheral edema, recent illness injury or trauma. Per Dr. Gee D/C Hospitalization 05/31-06/05/2021:Ms. Burch was admitted for alcohol withdrawal after recently restarting drinking. She had previously been sober for over a year. In the hospital she did well with phenobarbital and then ativan on a [facility] protocol. On day of discharge she was feeling much improved. No further symptoms of withdrawal. She meet with psychotherapist social worker who provided information for outpatient resources to help with abstinence from alcohol. She was initially hyponatremic, but this improved with diet, and is presumed related to her poor nutritional status, as she admits to not eating well when she drin ks. Patient's vitals demonstrated mild hypertension, tachycardia, and mildly tachypneic upon admit.? Temp 96.6?, BP 158/91, HR 103, RR 22, O2 saturation 93% on room air.? Patient's CBC was grossly normal with the exception of platelets 474, CBC patient's creatinine is slightly low at 0.34, BUN <2mg/dl, glucose 207, ALT 48, alk-phos 143, TCK 27, tox screen positive for THC, ETOH 247.? Head CT negative for any acute intracranial processes.? Patient admitted for alcohol withdrawal, alcohol abuse. Discharge Providers Provider Date of admission: 06/21/21 20:51 Discharge Date: 06/25/21 Primary care physician: Miguel Ángel Leary MD Consults: 06/21/21 20:45 Consult to Dietitian, Adult Routine Comment: Reason For Exam: ETOH w/d 06/22/21 05:33 Consult to PANEL EDGE SEALER - Security Rover Routine Comment: PANEL EDGE SEALER Consult: Substance Abuse Assess Discharge provider: Mark Mckeon MD Summary Hospital Course Discharge Diagnosis: Yin Burch is a 51 female with PMH EtOH cirrhosis, with active alcohol abuse who is admitted with alcohol withdrawal. 1. EtoH withdrawal, in the setting of alcohol abuse, cirrhosis, with known varices, acute on chronic, present on admission -with known history of alcoholic withdrawal seizures, EtOH 247 on admission 2. Hypothyroidism, acquired, chronic, present on admission -continue cytomel, synthroid 3.. Bipolar disorder, with depression and anxiety, chronic, present on admission -continue hydroxyzine and sertraline, naltrexone, saphris ? 6. Non-Insulin dependent Type 2 Diabetes, chronic, present on admission -A1C with good control at 6.5% 7. Essential hypertension, acute on chronic, present on admission -BP 158/91 likely in setting of withdrawal. No dose adjustments at this time. 8. Hyperlipidemia, chronic, present on admission -continue pravastatin 9. GERD, chronic, present on admission -continue omeprazole Exam Vital Signs (past 8 hours): - 06/25/21 07:00 06/25/21 07:53 06/25/21 08:00 Temperature 97.0 F L Pulse Rate 79 Respiratory Rate 16 Blood Pressure 139/82 Pulse Oximetry 97 97 97 06/25/21 11:00 06/25/21 12:28 Temperature 98.8 F Pulse Rate 69 Respiratory Rate 18 Blood Pressure 156/84 H Pulse Oximetry 98 96 Oxygen Delivery Method Room Air Oxygen Flow Rate 0 Objective Labs Result Diagrams: 06/21/21 17:40 06/25/21 05:34 Labs: Laboratory Results - last 24 hr 06/25/21 05:34 Sodium 135 L Potassium 4.0 Chloride 103 Carbon Dioxide 29 BUN < 2 L Creatinine 0.41 L Estimated GFR > 60.0 BUN/Creatinine Ratio 4.9 L Glucose 104 H Calcium 8.8 [facility] Medical History Anxiety Avascular necrosis of bone of hip Bipolar disorder Chicken pox Chlamydia (~1988) Cirrhosis Colon polyp COPD (chronic obstructive pulmonary disease) Depression Esophageal varices Esophageal web Hayfever Hemorrhoids Hypothyroidism (1997) Irregular periods/menstrual cycles MRSA infection Pancytopenia Papillary adenocarcinoma of thyroid Seizures Shoulder pain Substance abuse Surgical History Anesthesia complication History of adenoidectomy History of bunionectomy History of dilation and curettage History of esophageal surgery (2016) History of left hip replacement (08/2017) History of placement of ear tubes History of right hip replacement (11/2017) History of tonsillectomy History of total thyroidectomy (1997) Family History Father No problems noted. Mother Depression Hyperlipidemia Thyroid disorder Mental health problem Brother No problems noted. Grandfather Lung cancer Cancer Grandmother Thyroid disorder Potassium disorder Hyperlipidemia Hypertension Grandfather No problems noted. Grandmother No problems noted. Family/Other No problems noted. Social History household members: significant other Smoking Status: Current some day smoker alcohol intake: current substance use type: does not use eating out: rarely or never Type(s) of exercise: none Discharge Assessment & Plan Assessment and Plan Assessment: Yin Burch is a 51 female with PMH EtOH cirrhosis, with active alcohol abuse who is admitted with alcohol withdrawal. 1. EtoH withdrawal, in the setting of alcohol abuse, cirrhosis, with known varices, acute on chronic, present on admission -with known history of alcoholic withdrawal seizures, EtOH 247 on admission 2. Hypothyroidism, acquired, chronic, present on admission -continue cytomel, synthroid 3.. Bipolar disorder, with depression and anxiety, chronic, present on admission -continue hydroxyzine and sertraline, naltrexone, saphris ? 6. Non-Insulin dependent Type 2 Diabetes, chronic, present on admission -A1C with good control at 6.5% 7. Essential hypertension, acute on chronic, present on admission -BP 158/91 likely in setting of withdrawal. No dose adjustments at this time. 8. Hyperlipidemia, chronic, present on admission -continue pravastatin 9. GERD, chronic, present on admission -continue omeprazole Discharge Plan Discharge Plan Patient Disposition: Home Provider Discharge Comment: Ms. Burch came in to the hospital requesting detox from alcohol. She improved with medication. Discharge orders & Medications Prescriptions: New phenobarbital 32.4 mg Tablet 64.8 mg PO Q8H Qty: 10 0RF Rx Instructions: take 2 tabs a total of three times on 06/24, 2 tabs twice a day on 06/25, 2 tabs once daily on 06/26 Continued aspirin [Adult Low Dose Aspirin] 81 mg tablet,delayed release (DR/EC) 81 mg PO DAILY 0RF (DME) blood-glucose meter [True Metrix Glucose Meter] Mis See Rx Instructions .ROUTE .MEDSUPPLY Qty: 1 0RF Rx Instructions: use to chekc blood sugar 4 times a day (DME) True Metrix Glucose Test Strip Strip See Rx Instructions .ROUTE .MEDSUPPLY Qty: 400 3RF Rx Instructions: use to check blood sugar 4 times a day levothyroxine 200 mcg tablet 200 mcg PO DAILY Qty: 90 3RF pravastatin 20 mg tablet 20 mg PO BEDTIME Qty: 90 3RF liothyronine 5 mcg tablet 10 mcg PO DAILY Qty: 180 2RF nadolol 40 mg tablet 40 mg PO DAILY Qty: 90 2RF sertraline 50 mg tablet 50 mg PO DAILY Qty: 90 1RF omeprazole 20 mg capsule,delayed release(DR/EC) 20 mg PO PRN PRN (Reason: Acid Reflux) Qty: 90 1RF naltrexone 50 mg tablet 50 mg PO DAILY Qty: 30 0RF asenapine maleate [Saphris] 5 mg tablet, sublingual 10 mg sublingual BEDTIME 0RF Rx Instructions: 30 DAYS ONLY OK'D BY YARY. PATIENT NEEDS TO FIND BEHAVIORAL HEALTH DOC FOR C ONT'D FILLS. THANK YOU 05/15/21 furosemide 40 mg tablet 40 mg PO DAILY Qty: 30 5RF hydroxyzine HCl 50 mg tablet 50 mg PO TID PRN (Reason: anxiety) Qty: 90 11RF metformin 1,000 mg tablet extended release 24hr 1,000 mg PO BID Qty: 60 0RF multivitamin with folic acid [Tab-A-Feroz] 400 mcg Tablet 1 tab PO DAILY Qty: 30 0RF No Action (DME) lancets Misc See Rx Instructions .ROUTE .MEDSUPPLY Qty: 400 3RF Rx Instructions: use to check blood sugar 4 times a day, brand per ins. Follow up/Referrals: Miguel Ángel Leary MD [Primary Care Provider] - Diet/Activity/Treatments Diet: Regular Discharge Data Primary Care Provider: Miguel Ángel Leary
--- NOTE | 2021-06-25 15:26 | PC.NURSE ---
Pt discharged at 1500, escorted off floor in wheelchair, accompanied by hospital staff. Dr. Mckeon spoke to pt about the fact that she does not need a phenobarbitol prescription for discharge but he was unable to remove it from the paperwork. This was crossed off after the paperwork was printed. Importance of follow up appointment with inpatient rehab emphasized. Pt has paperwork with date, time and location of this follow up. IV removed and discharge teaching completed. Pt left unit with all belongings in possession.
== END 2021-06-25 15:05 | disposition home or self-care (01) | DRG 775 ==
LOC: ED 20:45 → AC 06-22 00:09
PROVIDERS: Emergency Medicine; Internal Medicine; Admitting Provider Nurse Practitioner Family; Emergency Provider Emergency Medicine; PCP Student in an Organized Health Care Education/Training Program; Visit Provider Nurse Practitioner Family
DX: F10.139 Alcohol abuse with withdrawal, unspecified (principal); F31.30 Bipolar disorder, current episode depressed, mild or moderate severity, unspecified; K74.60 Unspecified cirrhosis of liver; I85.10 Secondary esophageal varices without bleeding; E03.9 Hypothyroidism, unspecified; F41.9 Anxiety disorder, unspecified; E78.5 Hyperlipidemia, unspecified; K21.9 Gastro-esophageal reflux disease without esophagitis; I10 Essential (primary) hypertension; E11.9 Type 2 diabetes mellitus without complications; F17.200 Nicotine dependence, unspecified, uncomplicated; Y90.8 Blood alcohol level of 240 mg/100 ml or more; Z20.822 Contact with and (suspected) exposure to COVID-19; Z79.84 Long term (current) use of oral hypoglycemic drugs
CPT/HCPCS: 36415; 70450; 80048; 80053; 80305; 80320; 81003; 82140; 82550; 82962; 83036; 83690; 83735; 83880; 84484; 85025; 87635; 94760; 96361; 96374; 96375; 99284; 99406; C9803; J1650; J1815; J2060; J2405; J2560

== ENCOUNTER → 2021-06-27 12:05 | Outpatient (CLI) | payer OTHER, MEDICAID, SELFPAY ==
[2021-05-31 16:44] VITALS: BMI 32.5
[2021-06-21 22:07] VITALS: BMI 34.4
--- NOTE | 2021-06-27 12:07 | DI.MRI.S_ITS ---
PROCEDURE: MR ABDOMEN WO/W CON INDICATIONS: ABNORMAL ABDOMINAL/LIVER PROTOCOL TECHNIQUE: Coronal HASTE, axial 2D FLASH in- and [id number]; axial breath-hold T2 FSE. Dynamic axial VIBE during the administration of contrast; post-contrast coronal VIBE or 2D FLASH with fat saturation from the hepatic dome to the iliac crests. Optional diffusion weighted imaging and ADC may be performed. COMPARISON: [facility], CT, CT ABDOMEN WO/W CON, 04/11/2021, 8:49. FINDINGS: Image quality: Excellent. Lung bases: No pleural effusions. No hiatal hernia. Normal size heart Solid organs: The liver is enlarged in both craniocaudal and transverse diameter and measures about 18.9 cm in length. The margin is micronodular. Parenchyma is fairly homogeneous. In segment VII centrally, 1.1 x 1.1 x 1.0 cm T2 hyperintensity is present which postcontrast demonstrates a septation, or traversing vascular branch, and no peripheral or internal enhancement. More medial in segment VII and at the same axial level, there is intrinsic T1 hyperintense mass measuring 1.3 cm without significant enhancement postcontrast. The gallbladder is normal without stones, sludge, wall thickening, or pericholecystic fluid. Biliary system is nondilated. Pancreas is normal and ductal anatomy is classic. Spleen is at the upper limits of normal. The adrenal glands are normal. Kidneys demonstrate corticomedullary cysts bilaterally. No hydronephrosis and no hydroureter. Nodes and vessels: No retroperitoneal or mesenteric adenopathy by size criteria. Aorta and inferior vena cava are normal in size. Bowel and peritoneum: Unenhanced bowel loops are normal in caliber. No free fluid. Bones and soft tissues: No ventral hernias. Bone marrow is normal in overall signal. IMPRESSION: 1. 1.1 cm cyst in segment VII. 2. 1.3 cm nonenhancing T1 hyperintense observation in medial segment VII most consistent with focal fat or regenerative nodule. 3. Mild hepatomegaly and micronodular margin suspicious for early cirrhosis. Dictated by: Maida Suarez M.D. on 06/27/2021 at 15:02 Approved by: Maida Suarez M.D. on 06/27/2021 at 16:47
== END ==
PROVIDERS: PCP Student in an Organized Health Care Education/Training Program; Referring Provider Internal Medicine Gastroenterology; Visit Provider Internal Medicine Gastroenterology
DX: R93.5 Abnormal findings on diagnostic imaging of other abdominal regions, including retroperitoneum (principal); K76.89 Other specified diseases of liver; N28.1 Cyst of kidney, acquired; R16.0 Hepatomegaly, not elsewhere classified
CPT/HCPCS: 74183; A9579

== ENCOUNTER → 2021-08-06 12:11 | Outpatient (CLI) | payer OTHER, MEDICAID, SELFPAY ==
[2021-06-21 22:07] VITALS: BMI 34.4
[2021-08-06 12:41] LABS: Add Manual Diff / Slide Review NO; Basophils Absolute Auto 0 /uL (0-100); Basophils Percent Auto 0.2 % (0-2); Eosinophils Absolute Auto 100 /uL (0-450); Eosinophils Percent Auto 2.3 % (2-4); Hematocrit 35.8 % (36-46); Hemoglobin 11.8 g/dL (12.0-16.0); Lymphocytes Absolute Auto 1700 /uL (1100-4500); Lymphocytes Percent Auto 27.9 % (25-40); Mean Corpuscular HGB Conc 32.9 % (30-36); Mean Corpuscular Hemoglobin 25.9 PG (26-34); Mean Corpuscular Volume 78.6 fL (80-100); Monocytes Absolute Auto 400 /uL (0-900); Monocytes Percent Auto 6.5 % (3-14); Neutrophils Absolute Auto 3900 /uL (1500-7000); Neutrophils Percent Auto 63.1 % (50-75); Platelet Count 293 X10^3/uL (150-400); Red Blood Cell Count 4.55 X10^6/uL (4.0-5.2); Red Cell Distribution Width 16.1 % (11.6-14.8); White Blood Cell Count 6.2 X10^3/uL (4.5-11.0)
[2021-08-06 12:48] LABS: Reticulocyte Count, Percent 1.6 % (1.1-2.6)
[2021-08-06 12:53] LABS: Alanine Aminotransferase 40 IU/L (<35); Albumin 4.6 g/dL (3.5-5.0); Albumin Globulin Ratio 1.4 (1.0-2.8); Alkaline Phosphatase 133 U/L (38-126); Aspartate Aminotransferase 49 IU/L (14-36); BUN Creatinine Ratio 11.3 (6-22); Bilirubin Total 0.5 mg/dL (0.2-1.3); Blood Urea Nitrogen 7 mg/dL (7-17); Calcium 9.6 mg/dL (8.4-10.2); Carbon Dioxide 31 mmol/L (22-32); Chloride 98 mmol/L (98-107); Estimated Glomerular Filt Rate > 60.0 mL/min (>60); Globulin 3.3 g/dL (1.7-4.1); Glucose 152 mg/dL (70-100); HEMOLYSIS < 15 (0-50); Sodium 136 mmol/L (137-145); Total Protein 7.9 g/dL (6.3-8.2)
[2021-08-06 13:13] LABS: HEMOLYSIS < 15 (0-50); Iron 68 ug/dL (37-170)
[2021-08-06 13:23] LABS: Percent Iron Saturation 17 % (15-50); Total Iron Binding Capacity 401 ug/dL (265-497); Transferrin 332 mg/dL (206-381)
[2021-08-06 13:26] LABS: Ferritin 12 ng/mL (6-137)
[2021-08-06 13:57] LABS: Folate 10.4 ng/mL (2.76-20.0)
== END ==
PROVIDERS: PCP Student in an Organized Health Care Education/Training Program; Referring Provider Student in an Organized Health Care Education/Training Program; Visit Provider Student in an Organized Health Care Education/Training Program
DX: F10.929 Alcohol use, unspecified with intoxication, unspecified (principal); K70.31 Alcoholic cirrhosis of liver with ascites; D64.9 Anemia, unspecified
CPT/HCPCS: 36415; 80053; 82728; 82746; 83540; 83550; 85025; 85045

== ENCOUNTER 2021-08-12 16:13 | Emergency (ER) | payer OTHER, MEDICAID, SELFPAY ==
[2021-06-21 22:07] VITALS: BMI 34.4
[2021-08-12] VITALS (8 sets, daily range): BP systolic 124–145; BP diastolic 73–92; PULSE 59–65; RESP 16–18; TEMP 36.5; O2SAT 94–100
--- NOTE | 2021-08-12 16:17 | DI.RAD.S_ITS ---
PROCEDURE: XR HIP W PEL IF DONE LT 2V INDICATIONS: ETOH, fall on L hip w/ existing hardware TECHNIQUE: AP pelvis and lateral view of the left hip acquired. [facility] D[facility] RT 2V, 09/30/2018, 20:45. FINDINGS: Bones: Patient is status post bilateral hip arthroplasties, with hardware components in expected positions. The hip joint appears congruent. The visualized bony structures appear intact. Soft tissues: Overlying postoperative changes are noted. No suspicious soft tissue densities. IMPRESSION: No significant abnormality. Dictated by: Guillermo Gann M.D. on 08/12/2021 at 16:55 Approved by: Guillermo Gann M.D. on 08/12/2021 at 16:56
--- NOTE | 2021-08-12 16:27 | ED.ALCOHOL ---
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 05/15/21 furosemide 40 mg tablet 40 mg PO DAILY Qty: 30 5RF hydroxyzine HCl 50 mg tablet 50 mg PO TID PRN (Reason: anxiety) Qty: 90 11RF metformin 1,000 mg tablet extended release 24hr 1,000 mg PO BID Qty: 60 0RF multivitamin with folic acid [Tab-A-Feroz] 400 mcg Tablet 1 tab PO DAILY Qty: 30 0RF phenobarbital 32.4 mg Tablet 64.8 mg PO Q8H Qty: 10 0RF Rx Instructions: take 2 tabs a total of three times on 06/24, 2 tabs twice a day on 06/25, 2 tabs once daily on 06/26 Referrals: Miguel Ángel Leary MD [Primary Care Provider] - Stand Alone Forms: Naloxone Standing Order HEIKE
[2021-08-12 16:29] LABS: Add Manual Diff / Slide Review NO; Basophils Absolute Auto 100 /uL (0-100); Basophils Percent Auto 0.8 % (0-2); Eosinophils Absolute Auto 0 /uL (0-450); Eosinophils Percent Auto 0.4 % (2-4); Hematocrit 41.2 % (36-46); Hemoglobin 13.5 g/dL (12.0-16.0); Lymphocytes Absolute Auto 5100 /uL (1100-4500); Lymphocytes Percent Auto 42.8 % (25-40); Mean Corpuscular HGB Conc 32.9 % (30-36); Mean Corpuscular Hemoglobin 25.8 PG (26-34); Mean Corpuscular Volume 78.5 fL (80-100); Monocytes Absolute Auto 400 /uL (0-900); Monocytes Percent Auto 3.1 % (3-14); Neutrophils Absolute Auto 6400 /uL (1500-7000); Neutrophils Percent Auto 52.9 % (50-75); Platelet Count 477 X10^3/uL (150-400); Red Blood Cell Count 5.24 X10^6/uL (4.0-5.2); Red Cell Distribution Width 16.2 % (11.6-14.8)
[2021-08-12 16:40] LABS: INR 1.2 (0.9-1.3); Prothrombin Time 13.1 SECONDS (10.1-12.7)
[2021-08-12 16:45] LABS: Acetaminophen < 10 ug/mL (10-30); Alanine Aminotransferase 27 IU/L (<35); Albumin 5.4 g/dL (3.5-5.0); Albumin Globulin Ratio 1.3 (1.0-2.8); Alkaline Phosphatase 142 U/L (38-126); Aspartate Aminotransferase 38 IU/L (14-36); BUN Creatinine Ratio 6.7 (6-22); Bilirubin Total 0.6 mg/dL (0.2-1.3); Blood Urea Nitrogen 3 mg/dL (7-17); Calcium 9.2 mg/dL (8.4-10.2); Carbon Dioxide 19 mmol/L (22-32); Chloride 91 mmol/L (98-107); Estimated Glomerular Filt Rate > 60.0 mL/min (>60); Globulin 4.1 g/dL (1.7-4.1); Glucose 134 mg/dL (70-100); HEMOLYSIS < 15 (0-50); Lipase 93 U/L (23-300); Potassium 3.9 mmol/L (3.4-5.1); Salicylate < 1.0 mg/dL (<20); Sodium 134 mmol/L (137-145); Total Protein 9.5 g/dL (6.3-8.2)
[2021-08-12] MEDS: ONDANSETRON 4 MG/2 ML INJ IV (16:52)
[2021-08-12] MEDS: SODIUM CHLORIDE 0.9% 1,000 ML 1000 ML IV (16:53)
[2021-08-12 16:54] LABS: Ethanol (ETOH) 416 mg/dL
[2021-08-12 17:12] LABS: Free T4, Direct Thyroxine 1.91 ng/dL (0.78-2.19)
[2021-08-12 17:26] LABS: Thyroid Stimulating Hormone 0.167 uIU/mL (0.47-4.68)
[2021-08-12 17:36] LABS: UR Morphine/Opiate cutoff 300 Negative (Negative); Ur Creatinine Normal (Normal); Ur Specific Gravity Normal (Normal); Urine Amphetamines Negative (Negative); Urine Barbiturates Negative (Negative); Urine Benzodiazepines Negative (Negative); Urine Cocaine Negative (Negative); Urine MDMA Negative (Negative); Urine Methadone Negative (Negative); Urine Methamphetamines Negative (Negative); Urine Oxycodone Positive (Negative); Urine Phencyclidine Negative (Negative); Urine Tetrahydrocannabinol Positive (Negative); Urine Tricyclic Antidepressant Negative (Negative); Urine pH Normal (Normal)
[2021-08-12 17:38] LABS: Bacteria Urine None Seen; Culture Indicated Urine Cult Not Indicated; RBC Urine None Seen (0-5/HPF); Squamous Epithelial Cell Urine 0-1 /HPF (0-5/HPF); WBC Urine None Seen (0-5/HPF)
[2021-08-12] MEDS: KETOROLAC 30 MG/ML VIAL 15 MG IV (18:13)
[2021-08-12 18:44] LABS: COVID19 -Nasal RAPID Negative (Negative)
== END 2021-08-12 19:25 | disposition home or self-care (01) ==
PROVIDERS: Emergency Provider Emergency Medicine; PCP Student in an Organized Health Care Education/Training Program
DX: F10.129 Alcohol abuse with intoxication, unspecified (principal); M25.552 Pain in left hip; Y90.8 Blood alcohol level of 240 mg/100 ml or more; Z20.822 Contact with and (suspected) exposure to COVID-19
CPT/HCPCS: 73502; 80053; 80305; 80320; 80329; 81003; 81015; 81025; 83690; 84439; 84443; 85025; 85610; 87635; 96374; 96375; 99283; 99284; C9803; G0480; J1885; J2405

== ENCOUNTER 2021-08-14 16:12 | Emergency (ER) | payer OTHER, MEDICAID, SELFPAY ==
[2021-06-21 22:07] VITALS: BMI 34.4
[2021-08-14] VITALS (8 sets, daily range): BP systolic 136–188; BP diastolic 77–82; PULSE 62–68; RESP 18; TEMP 36.8; O2SAT 95–98; BMI 32.9
--- NOTE | 2021-08-14 19:01 | PC.NURSE ---
Pt reports double vision since 1600 today. Recent dental work--removal of all teeth to get fit for dentures. Pt having increased pain and sinus tenderness and reports the increased pain started around the same time as the double vision. h/o headaches however no h/o migraines. states she has been off of her psych meds recently for biploar and personality disorder and also has an ETOH addiction and is currently detoxing. BS 153. Peripheral vision intact and equal field gauger/pushes/sensation. at bedside.
--- NOTE | 2021-08-14 19:05 | ED.EYEPROB ---
HPI - Eye Problem General Chief complaint: Eye Problems Stated complaint: visual changes, left eye s/p dental removal Time Seen by Provider: 08/14/21 18:51 Source: patient Mode of arrival: Ambulatory Limitations: no limitations History of Present Illness HPI Narrative: The patient presents with left diplopia, onset several hours ago. Right eye vision seems to be attack. She was recently seen here with extreme intoxication, she did fall several times. She has no obvious head injury from the falls. She also had multiple dental extractions last week. She has facial pain from the dental extractions. She has no erythema, warmth or swelling to her face. She has no neck pain from the falls. She has no confusion, no speech changes, and no obvious weakness or numbness. Since her last visit here she has had a couple drinks, not to the point of intoxication. Is notable that she has cirrhosis. She also has a history of right hip surgery, and a right drop foot since that time. She has a sensory does the right leg, but no acute changes. She has a remote history of migraines. Related Data Home Medications Medication Instructions Recorded Confirmed aspirin 81 mg tablet,delayed 81 mg PO DAILY 12/17/19 06/21/21 release (Adult Low Dose Aspirin) asenapine maleate 5 mg sublingual 10 mg SUBLINGUAL BEDTIME tab 06/18/21 06/21/21 tablet (Saphris) Previous Rx's Medication Instructions Recorded blood sugar diagnostic (True #400 each 03/07/20 Metrix Glucose Test Strip) blood-glucose meter (True Metrix #1 each 03/07/20 Glucose Meter) lancets #400 each 03/07/20 levothyroxine 200 mcg tablet 200 mcg PO DAILY #90 tab 12/10/20 pravastatin 20 mg tablet 20 mg PO BEDTIME #90 tab 03/01/21 liothyronine 5 mcg tablet 10 mcg PO DAILY #180 tab 04/20/21 nadolol 40 mg tablet 40 mg PO DAILY #90 tab 04/26/21 sertraline 50 mg tablet 50 mg PO DAILY #90 tab 05/13/21 multivitamin with folic acid 400 1 tab PO DAILY #30 tab 06/05/21 mcg tablet (Tab-A-Feroz) omeprazole 20 mg capsule,delayed 20 mg PO PRN PRN #90 cap 06/12/21 release furosemide 40 mg tablet 40 mg PO DAILY #30 tab 06/18/21 hydroxyzine HCl 50 mg tablet 50 mg PO TID PRN #90 tab 06/18/21 metformin 1,000 mg tablet,extended 1,000 mg PO BID #60 tab 06/18/21 release 24hr naltrexone 50 mg tablet 50 mg PO DAILY #30 tab 06/18/21 phenobarbital 32.4 mg tablet 64.8 mg PO Q8H #10 tab 06/24/21 Allergies Allergy/AdvReac Type Severity Reaction Status Date / Time Penicillins [PENICILLINS] Allergy Severe Swelling Verified 06/22/21 13:15 of Lip/Tongue/Throat shellfish derived Allergy Intermediate Rash Verified 06/18/21 14:38 Sulfa (Sulfonamide Allergy Intermediate Rash Verified 06/18/21 14:18 Antibiotics) [SULFA (SULFONAMIDE ANTIBIOTICS)] sulfamethoxazole Allergy Intermediate Rash Verified 06/18/21 14:18 [From Bactrim] trimethoprim [From Bactrim] Allergy Intermediate Rash Verified 06/18/21 14:18 Review of Systems Review of Systems Narrative: Constitutional: Denies anorexia, Denies body ache(s), Denies chills, Denies fatigue, Denies fever(s) and Reports headache(s) Eyes Comments: Diplopia with left eye blurred vision. ENT Ears, Nose, Mouth, and Throat: Denies vertigo, Denies dizziness, Reports headache(s) and Denies neck pain Comments: Dental pain following recent dental extractions. Cardiovascular Cardiovascular: Denies chest pain, Denies rapid heart rate and Denies dyspnea Respiratory Respiratory: Denies chest congestion, Denies cough and Denies dyspnea Gastrointestinal Gastrointestinal: Denies abdominal pain and Denies nausea Genitourinary Genitourinary: Denies dysuria Musculoskeletal Musculoskeletal: Denies back pain, Denies arthralgias, Denies myalgias and Denies neck pain Integumentary/Breasts Skin/Breast: Denies rash Neurologic Neurologic: Denies confusion, Denies vertigo, Denies dizziness, Reports headache(s) and Denies memory loss Psychiatric Psychiatric: Denies confusion and Denies memory loss Endocrine Endocrine: Denies fatigue Hematologic/Lymphatic On Anticoagulants: No Patient History Medical History Anxiety Avascular necrosis of bone of hip Bipolar disorder Chicken pox Chlamydia (~1988) Cirrhosis Colon polyp COPD (chronic obstructive pulmonary disease) Depression Esophageal varices Esophageal web Hayfever Hemorrhoids Hypothyroidism (1997) Irregular periods/menstrual cycles MRSA infection Pancytopenia Papillary adenocarcinoma of thyroid Seizures Shoulder pain Substance abuse Surgical History Anesthesia complication History of adenoidectomy History of bunionectomy History of dilation and curettage History of esophageal surgery (2016) History of left hip replacement (08/2017) History of placement of ear tubes History of right hip replacement (11/2017) History of tonsillectomy History of total thyroidectomy (1997) Family History Father No problems noted. Mother Depression Hyperlipidemia Thyroid disorder Mental health problem Brother No problems noted. Grandfather Lung cancer Cancer Grandmother Thyroid disorder Potassium disorder Hyperlipidemia Hypertension Grandfather No problems noted. Grandmother No problems noted. Family/Other No problems noted. Social History household members: significant other Smoking Status: Former smoker alcohol intake: current substance use type: does not use eating out: rarely or never Type(s) of exercise: none Smoking Status: Former smoker alcohol intake frequency: 3 or more drinks per day Alcohol type: hard liquor Substance Use Type: marijuana Exam Initial Vital Signs Initial Vital Signs: Vital Signs Temperature 98.2 F 08/14/21 16:21 Pulse Rate 66 08/14/21 16:21 Respiratory Rate 18 08/14/21 16:21 Blood Pressure 157/82 H 08/14/21 16:21 Pulse Oximetry 98 08/14/21 16:21 General: cooperative, healthy appearing, comfortable, well developed and well groomed [facility] Head: normal to inspection, normocephalic and atraumatic Face and sinus: sinuses nontender Mouth: oral mucosae normal Teeth and gingiva: other (Multiple recent dental extractions.? No gum infection.) Throat: posterior oropharynx normal Eyes Pupils: PERRL EOM: EOM intact bilaterally Direct ophthalmoscopy: photophobia Other: Blurred vision in the left eye, particularly with lateral gaze.? No nystagmus.? No visual field cuts. Neck Neck: full ROM and No tender Resp Auscultation: clear to auscultation bilaterally Cardio Rate: regular rate Rhythm: regular rhythm Heart Sounds: S1 normal, S2 normal and no murmurs GI Palpation: soft and No tender Back/Spine/Pelvis Back: No back tenderness Skin General: no rashes or lesions noted Neuro General: patient alert, patient awake, no focal motor deficits and other Other: NIHSS is 0. Extrem General: normal to inspection and full ROM Course Course Course Narrative: The patient was given Toradol, Reglan and Benadryl IV for a presumed ocular migraine. Symptoms of facial pain and blurred vision in her left eye have resolved. Head CT and facial bone CT showed no acute findings. Orders Ordered: ED Orders 08/14/21 19:06 CT facial bones wo con Stat CT head/brain wo con Stat Discontinued Medications Diphenhydramine HCl (Diphenhydramine 50 Mg/Ml Vial) 25 mg IV NOW ONE Stop: 08/14/21 19:47 Last Admin: 08/14/21 20:10 Dose: 25 mg Documented by: SONAL Sodium Chloride (Normal Saline 0.9%) 1,000 mls @ 1,000 mls/hr IV BOLUS ONE Stop: 08/14/21 20:42 Last Admin: 08/14/21 20:10 Dose: 1,000 mls/hr Documented by: SONAL Ketorolac Tromethamine (Ketorolac 30 Mg/Ml Vial) 30 mg IV NOW ONE Stop: 08/14/21 19:44 Last Admin: 08/14/21 20:10 Dose: 30 mg Documented by: SONAL Metoclopramide HCl (Metoclopramide 10 Mg/2 Ml Inj) 10 mg IV NOW ONE Stop: 08/14/21 19:44 Last Admin: 08/14/21 20:10 Dose: 10 mg Documented by: SONAL Vital Signs Vital signs: Vital Signs - 8 hr 08/14/21 16:21 08/14/21 18:43 08/14/21 19:00 Temperature 98.2 F Pulse Rate 66 68 62 Respiratory Rate 18 Blood Pressure 157/82 H 188/77 H Pulse Oximetry 98 95 97 MDM - Eye Problem Lab Data Labs: Point of Care Testing Glucose POC [address] scan - head: Radiologist's Impression: No CT evidence of acute intracranial abnormalities.? No significant changes from previous study. ? CT facial bones: Radiologist's Impression: 1.? Postprocedural changes involving left upper molar teeth with tiny 4 x 3 mm collection at the area of dental procedure and is concerning for tiny periodontal abscess collection.? No discrete drainable abscess collection is noted. 2. No facial bone fracture or dislocation.? No CT evidence of osteomyelitis. 3.? Bilateral paranasal sinuses are well aerated. 4.? Bilateral orbital globes are intact.? Orbital gilliam are intact.? Discharge Plan Departure Patient Disposition: Home Clinical Impression: Ocular migraine Instructions: Migraine -- Adult Activity Restrictions/Additional Instructions: Advil 3 tablets every 6 hours as needed for facial pain. Continue your current prescription medications. Follow-up with your doctor regarding ongoing headache management, return if necessary. Prescriptions: No Action aspirin [Adult Low Dose Aspirin] 81 mg tablet,delayed release (DR/EC) 81 mg PO DAILY 0RF (DME) blood-glucose meter [True Metrix Glucose Meter] Misc See Rx Instructions .ROUTE .MEDSUPPLY Qty: 1 0RF Rx Instructions: use to chekc blood sugar 4 times a day (DME) True Metrix Glucose Test Strip Strip See Rx Instructions .ROUTE .MEDSUPPLY Qty: 400 3RF Rx Instructions: use to check blood sugar 4 times a day (DME) lancets Misc See Rx Instructions .ROUTE .MEDSUPPLY Qty: 400 3RF Rx Instructions: use to check blood sugar 4 times a day, brand per ins. levothyroxine 200 mcg tablet 200 mcg PO DAILY Qty: 90 3RF pravastatin 20 mg tablet 20 mg PO BEDTIME Qty: 90 3RF liothyronine 5 mcg tablet 10 mcg PO DAILY Qty: 180 2RF nadolol 40 mg tablet 40 mg PO DAILY Qty: 90 2RF sertraline 50 mg tablet 50 mg PO DAILY Qty: 90 1RF omeprazole 20 mg capsule,delayed release(DR/EC) 20 mg PO PRN PRN (Reason: Acid Reflux) Qty: 90 1RF naltrexone 50 mg tablet 50 mg PO DAILY Qty: 30 0RF asenapine maleate [Saphris] 5 mg tablet, sublingual 10 mg sublingual BEDTIME 0RF Rx Instructions: 30 DAYS ONLY OK'D BY YARY. PATIENT NEEDS TO [facility] FOR CONT'D FILLS. THANK YOU 05/15/21 furosemide 40 mg tablet 40 mg PO DAILY Qty: 30 5RF hydroxyzine HCl 50 mg tablet 50 mg PO TID PRN (Reason: anxiety) Qty: 90 11RF metformin 1,000 mg tablet extended release 24hr 1,000 mg PO BID Qty: 60 0RF multivitamin with folic acid [Tab-A-Feroz] 400 mcg Tablet 1 tab PO DAILY Qty: 30 0RF phenobarbital 32.4 mg Tablet 64.8 mg PO Q8H Qty: 10 0RF Rx Instructions: take 2 tabs a total of three times on 06/24, 2 tabs twice a day on 06/25, 2 tabs once daily on 06/26 Referrals: Miguel Ángel Leary MD [Primary Care Provider] -
--- NOTE | 2021-08-14 19:06 | DI.CT.S_ITS ---
PROCEDURE: CT HEAD/BRAIN WO CON INDICATIONS: Left diplopia/blurred vision. TECHNIQUE: Noncontrast 4.5 mm thick angled axial sections acquired from the foramen magnum to the vertex, with coronal and sagittal reformats. For radiation dose reduction, the following was used: automated exposure control, adjustment of mA and/or kV according to patient size. COMPARISON: [facility], CT, CT HEAD/BRAIN WO CON, 06/21/2021, 20:01. FINDINGS: Image quality: Excellent. CSF spaces: Basal cisterns are patent. No extra-axial fluid collections. Ventricles are normal in size and shape. Brain: No midline shift. No intracranial masses or hemorrhage. Burt-white matter interface is normal. Skull and face: Calvarium and visualized facial bones are intact, without suspicious lesions. Sinuses: Visualized sinuses and mastoids are clear. IMPRESSION: No CT evidence of acute intracranial abnormalities. No significant changes from previous study. Dictated by: Michele Cox M.D. on 08/14/2021 at 19:27 Approved by: Michele Cox M.D. on 08/14/2021 at 19:28
--- NOTE | 2021-08-14 19:06 | DI.CT.S_ITS ---
PROCEDURE: CT FACIAL BONES WO CON INDICATIONS: Left diplopia. TECHNIQUE: Noncontrast 2.5 mm thick axial images acquired from the mandible through the frontal sinuses, with coronal and sagittal reformatting. For radiation dose reduction, the following was used: automated exposure control, adjustment of mA and/or kV according to patient size. COMPARISON: None. FINDINGS: Image quality: Excellent. Bones and teeth: Orbital gilliam are intact. Sinus gilliam show no fracture or deformity. Nasal bones and septum are intact. Visualized portions of the mandible demonstrate no fractures or subluxation. Zygomatic arches are intact. Pterygoid plates are intact. Visualized portions of the skull base and auditory canals are intact. There is suggestion of recent dental procedure involving left upper molar teeth with small amount of subcutaneous air. There is a tiny fluid collection in this area measures approximately 4 by 3 mm in size series 7, image 47 concerning for tiny periodontal abscess collection given patient's history. Sinuses: Paranasal sinuses are aerated, without fluid levels, mucosal thickening, or mucoceles. Mastoid air cells are aerated. Soft tissues: No other edema, masses, or fluid collections. No enlarged lymph nodes. No soft tissue lacerations or debris. Vascular: Visualized vascular structures appear normal in the absence of contrast. Bony vascular foramina and canals are intact. IMPRESSION: 1. Postprocedural changes involving left upper molar teeth with tiny 4 x 3 mm collection at the area of dental procedure and is concerning for tiny periodontal abscess collection. No discrete drainable abscess collection is noted. 2. No facial bone fracture or dislocation. No CT evidence of osteomyelitis. 3. Bilateral paranasal sinuses are well aerated. 4. Bilateral orbital globes are intact. Orbital gilliam are intact. Dictated by: Michele Cox M.D. on 08/14/2021 at 19:31 Approved by: Michele Cox M.D. on 08/14/2021 at 19:38
[2021-08-14] MEDS: KETOROLAC 30 MG/ML VIAL IV (20:10)
[2021-08-14] MEDS: SODIUM CHLORIDE 0.9% 1,000 ML 1000 ML IV (20:10)
[2021-08-14] MEDS: METOCLOPRAMIDE 10 MG/2 ML INJ IV (20:10)
[2021-08-14] MEDS: diphenhydrAMINE 50 MG/ML VIAL 25 MG IV (20:10)
== END 2021-08-14 21:38 | disposition home or self-care (01) ==
PROVIDERS: Emergency Provider Emergency Medicine; PCP Student in an Organized Health Care Education/Training Program
DX: G43.B0 Ophthalmoplegic migraine, not intractable (principal)
CPT/HCPCS: 70450; 70486; 82962; 96374; 96375; 99283; 99284; J1200; J1885; J2765

== ENCOUNTER 2021-08-15 06:51 | Inpatient (IN) | payer OTHER, MEDICAID, SELFPAY ==
[2021-06-21 22:07] VITALS: BMI 34.4
[2021-08-15] VITALS (17 sets, daily range): BP systolic 131–147; BP diastolic 56–81; PULSE 57–70; RESP 16–18; TEMP 36.4–37.2; O2SAT 94–98; BMI 34.7
[2021-08-15] MEDS: SODIUM CHLORIDE 0.9% 1,000 ML 1000 ML IV (07:10)
[2021-08-15 07:11] LABS: Add Manual Diff / Slide Review NO; Basophils Absolute Auto 100 /uL (0-100); Basophils Percent Auto 1.2 % (0-2); Eosinophils Absolute Auto 100 /uL (0-450); Eosinophils Percent Auto 1.8 % (2-4); Hematocrit 37.8 % (36-46); Hemoglobin 12.8 g/dL (12.0-16.0); Lymphocytes Absolute Auto 3200 /uL (1100-4500); Lymphocytes Percent Auto 38.7 % (25-40); Mean Corpuscular HGB Conc 33.8 % (30-36); Mean Corpuscular Hemoglobin 26.1 PG (26-34); Mean Corpuscular Volume 77.5 fL (80-100); Monocytes Absolute Auto 700 /uL (0-900); Monocytes Percent Auto 8.1 % (3-14); Neutrophils Absolute Auto 4200 /uL (1500-7000); Neutrophils Percent Auto 50.2 % (50-75); Platelet Count 354 X10^3/uL (150-400); Red Blood Cell Count 4.88 X10^6/uL (4.0-5.2); Red Cell Distribution Width 15.5 % (11.6-14.8); White Blood Cell Count 8.3 X10^3/uL (4.5-11.0)
[2021-08-15 07:13] LABS: INR 1.2 (0.9-1.3); Prothrombin Time 13.3 SECONDS (10.1-12.7)
[2021-08-15 07:15] LABS: PTT Partial Thromboplastin Tim 34 SECONDS (26.4-36.2)
[2021-08-15] MEDS: ONDANSETRON 4 MG/2 ML INJ IV (07:16)
--- NOTE | 2021-08-15 07:18 | ED.SEIZURE ---
HPI - Seizure General Chief Complaint: Seizure Stated Complaint: Seizure Time Seen by Provider: 08/15/21 06:58 Source: patient and EMS Mode of arrival: EMS History of Present Illness HPI Narrative: Patient is a 51-year-old female who has history of cirrhosis, alcoholism and multiple alcohol withdrawal seizures. She has been admitted here twice the year 2021 are ready for the same. She states that she has been trying to decrease her alcohol intake slowly she has not had a drink for 24 hours and had a seizure this morning. She says her last couple days actually been very unsteady on her feet. As evidenced when she transferred from EMS [facility] to the hospital [facility] she was very unsteady. She says she has been falling a lot. She currently feels nauseous and feels foggy in her head. She has no numbness tingling or weakness. She denies any chest pain or palpitations. She has not had any fevers chills. No painful or frequent urination. There was no urinary incontinence. Related Data Home Medications Medication Instructions Recorded Confirmed aspirin 81 mg tablet,delayed 81 mg PO DAILY 12/17/19 06/21/21 release (Adult Low Dose Aspirin) asenapine maleate 5 mg sublingual 10 mg SUBLINGUAL BEDTIME tab 06/18/21 06/21/21 tablet (Saphris) Previous Rx's Medication Instructions Recorded blood sugar diagnostic (True #400 each 03/07/20 Metrix Glucose Test Strip) blood-glucose meter (True Metrix #1 each 03/07/20 Glucose Meter) lancets #400 each 03/07/20 levothyroxine 200 mcg tablet 200 mcg PO DAILY #90 tab 12/10/20 pravastatin 20 mg tablet 20 mg PO BEDTIME #90 tab 03/01/21 liothyronine 5 mcg tablet 10 mcg PO DAILY #180 tab 04/20/21 nadolol 40 mg tablet 40 mg PO DAILY #90 tab 04/26/21 sertraline 50 mg tablet 50 mg PO DAILY #90 tab 05/13/21 multivitamin with folic acid 400 1 tab PO DAILY #30 tab 06/05/21 mcg tablet (Tab-A-Feroz) omeprazole 20 mg capsule,delayed 20 mg PO PRN PRN #90 cap 06/12/21 release furosemide 40 mg tablet 40 mg PO DAILY #30 tab 06/18/21 hydroxyzine HCl 50 mg tablet 50 mg PO TID PRN #90 tab 06/18/21 metformin 1,000 mg tablet,extended 1,000 mg PO BID #60 tab 06/18/21 release 24hr naltrexone 50 mg tablet 50 mg PO DAILY #30 tab 06/18/21 phenobarbital 32.4 mg tablet 64.8 mg PO Q8H #10 tab 06/24/21 Allergies Allergy/AdvReac Type Severity Reaction Status Date / Time Penicillins [PENICILLINS] Allergy Severe Swelling Verified 06/22/21 13:15 of Lip/Tongue/Throat shellfish derived Allergy Intermediate Rash Verified 06/18/21 14:38 Sulfa (Sulfonamide Allergy Intermediate Rash Verified 06/18/21 14:18 Antibiotics) [SULFA (SULFONAMIDE ANTIBIOTICS)] sulfamethoxazole Allergy Intermediate Rash Verified 06/18/21 14:18 [From Bactrim] trimethoprim [From Bactrim] Allergy Intermediate Rash Verified 06/18/21 14:18 Review of Systems Review of Systems Narrative: GENERAL: Denies chills, fatigue, malaise, fever, sweats, travel HEENT: Denies sinus pain, ear pain, sore throat, difficulty swallowing, neck pain RESPIRATORY: Denies dyspnea, cough, wheezing, hemoptysis, sputum. CARDIOVASCULAR: Denies chest pain, palpitations, orthopnea, edema GASTROINTESTINAL: Denies nausea, vomiting, abdominal pain, diarrhea, constipation, melena. : Denies dysuria, frequency, incontinence, hematuria, urinary retention, flank pain. MUSCULOSKELETAL: Denies weakness, joint pain, or bony pain SKIN: No rash, no erythema, no pruritus NEUROLOGIC: See HPI PSYCHIATRIC: No concerning psychosocial issues. 12 point review of systems is negative except for those stated above and HPI Patient History Medical History Anxiety Avascular necrosis of bone of hip Bipolar disorder Chicken pox Chlamydia (~1988) Cirrhosis Colon polyp COPD (chronic obstructive pulmonary disease) Depression Esophageal varices Esophageal web Hayfever Hemorrhoids Hypothyroidism (1997) Irregular periods/menstrual cycles MRSA infection Pancytopenia Papillary adenocarcinoma of thyroid Seizures Shoulder pain Substance abuse Surgical History Anesthesia complication History of adenoidectomy History of bunionectomy History of dilation and curettage History of esophageal surgery (2016) History of left hip replacement (08/2017) History of placement of ear tubes History of right hip replacement (11/2017) History of tonsillectomy History of total thyroidectomy (1997) Family History Father No problems noted. Mother Depression Hyperlipidemia Thyroid disorder Mental health problem Brother No problems noted. Grandfather Lung cancer Cancer Grandmother Thyroid disorder Potassium disorder Hyperlipidemia Hypertension Grandfather No problems noted. Grandmother No problems noted. Family/Other No problems noted. Social History household members: significant other Smoking Status: Former smoker alcohol intake: current substance use type: does not use eating out: rarely or never Type(s) of exercise: none Smoking Status: Former smoker alcohol intake frequency: 3 or more drinks per day Alcohol type: hard liquor Substance Use Type: marijuana Exam Initial Vital Signs Initial Vital Signs: Vital Signs Temperature 97.9 F 08/15/21 06:58 Pulse Rate 62 08/15/21 06:58 Respiratory Rate 18 08/15/21 06:58 Blood Pressure 145/74 H 08/15/21 06:58 Pulse Oximetry 94 08/15/21 06:58 GENERAL: 51-year-old femaleand in no acute distress. HEENT: Head atraumatic,EOMI, pupils reactive, no nystagmus no icterus, no evidence of tongue injury face symmetric, moist mucous membranes CARDIOVASCULAR: Regular rate and rhythm without murmurs, rubs or gallops. RESPIRATORY: Breath sounds equal bilaterally, no wheezes rales or rhonchi. ABDOMEN: Soft, nontender. Normoactive bowel sounds all 4 quadrants. No guarding or rebound. EXTREMITIES: Normal range of motion, no clubbing or edema. Neurovascularly intact NEUROLOGICAL: Alert and oriented x4.Normal gait and speech. Cranial nerves II through XII grossly intact. Good [id number], good [id number], strength equal bilaterally, no dysarthria or aphasia, sensation in tact to soft touch bilaterally, no visual changes, no facial droop SKIN: Warm, dry, no laceration, no petechiae, no rashes or lesions. Scores NIH Stroke Scale Level of Conciousness: Alert, keenly responsive Ask month/age: Answers both questions correctly. Open/close eyes, close hand: Performs both tasks correctly Best gaze horizontal: Normal Visual barnett: No visual loss Facial palsy: Normal symetrical movement Left arm drift: No drift for full 10 sec Right arm drift: No drift for full 10 sec Left leg drift: No drift for full 5 sec Right leg drift: No drift for full 5 sec Limb ataxia: Absent Sensory on face/arms/legs: Normal, no sensory loss Best language: No aphasia, normal Dysarthria: Normal Extinction or inattention: No abnormality Total NIH Stroke scale score: 0 Course Orders Ordered: ED Orders 08/15/21 11:10 Urinalysis Screen (Dip Only) Stat Urine Drug Screen, Rapid Stat 08/15/21 15:00 Basic Metabolic Panel Urgent Magnesium Urgent 08/16/21 05:00 Basic Metabolic Panel Routine Magnesium Routine Phosphorous Routine Acetaminophen (Acetaminophen 325 Mg Tablet) 650 mg PO Q6HR PRN PRN Reason: pain Last Admin: 08/15/21 09:38 Dose: 650 mg Documented by: ABBIE Dextrose (Dextrose 50 % In Water 25 Gm/50 Ml Syringe) 25 gm IV PRN PRN PRN Reason: Hypoglycemia Enoxaparin Sodium (Enoxaparin 40 Mg/0.4 Ml Syringe) 40 mg SUBCUT DAILY CORDELIA Folic Acid (Folic Acid 1 Mg Tablet) 1 mg PO DAILY CORDELIA Sodium Chloride (Normal Saline 0.9%) 1,000 mls @ 150 mls/hr IV CONT CORDELIA Last Admin: 08/15/21 12:01 Dose: 150 mls/hr Documented by: ABRAM Insulin Human Lispro (Insulin Lispro 100 Unit/Ml 3ml Vial) 0 unit SUBCUT ACHS CORDELIA; Protocol Last Admin: 08/15/21 17:14 Dose: Not Given Documented by: WINDY Lorazepam (Lorazepam 2 Mg/Ml Inj) 0 mg IV CIWAPRN PRN; Protocol PRN Reason: Alcohol Withdrawal Lorazepam (Lorazepam 1 Mg Tablet) 0 mg PO CIWAPRN PRN; Protocol PRN Reason: Alcohol Withdrawal Last Admin: 08/15/21 17:29 Dose: 1 mg Documented by: ABRAM Multivitamins (Multivitamin 1 Tablet) 1 tab PO DAILY CORDELIA Ondansetron HCl (Ondansetron 4 Mg/2 Ml Inj) 4 mg IV Q8HR PRN PRN Reason: Nausea And Vomiting Thiamine HCl (Thiamine 100 Mg Tablet) 100 mg PO DAILY [facility] Stop: 08/19/21 09:01 Discontinued Medications Sodium Chloride (Normal Saline 0.9%) 1,000 mls @ 1,000 mls/hr IV BOLUS ONE Stop: 08/15/21 08:03 Last Infusion: 08/15/21 08:52 Dose: 0 mls/hr Documented by: Admin: 08/15/21 07:10 Dose: 1,000 mls/hr Documented by: AFSANEH Magnesium Sulfate (Magnesium Sulfate) 4 gm in 100 mls @ 25 mls/hr IV NOW ONE Stop: 08/15/21 13:12 Last Infusion: 08/15/21 14:32 Dose: 0 mls/hr Documented by: ABRAM Cosigned by: CAITIE Admin: 08/15/21 09:39 Dose: 25 mls/hr Documented by: ABBIE Cosigned by: JASWANT Lorazepam (Lorazepam 2 Mg/Ml Inj) 2 mg IV NOW ONE Stop: 08/15/21 08:51 Last Admin: 08/15/21 08:55 Dose: 2 mg Documented by: JASWANT Ondansetron HCl (Ondansetron 4 Mg/2 Ml Inj) 4 mg IV NOW ONE Stop: 08/15/21 07:15 Last Admin: 08/15/21 07:16 Dose: 4 mg Documented by: AFSANEH Vital Signs Vital signs: Vital Signs - 8 hr 08/15/21 06:58 Temperature 97.9 F Pulse Rate 62 Respiratory Rate 18 Blood Pressure 145/74 H Pulse Oximetry 94 MDM - Seizure Lab Data Result diagrams: 08/15/21 06:45 08/15/21 06:45 Labs: Lab Results 08/15/21 08/15/21 08/15/21 Range/Units 06:45 06:45 06:45 WBC 8.3 (4.5-11.0) X10^3/uL RBC 4.88 (4.0-5.2) X10^6/uL Hgb 12.8 (12.0-16.0) g/dL Hct 37.8 (36-46) % MCV 77.5 L (80-100) fL MCH 26.1 (26-34) PG MCHC 33.8 (30-36) % RDW 15.5 H (11.6-14.8) % Plt Count 354 (150-400) X10^3/uL Neut % (Auto) 50.2 (50-75) % Lymph % (Auto) 38.7 (25-40) % [place] % (Auto) 8.1 (3-14) % Eos % (Auto) 1.8 L (2-4) % Baso % (Auto) 1.2 (0-2) % Neut # (Auto) 4200 (5669-4834) /uL Lymph # (Auto) 3200 (9338-1874) /uL [place] # (Auto) 700 (0-900) /uL Eos # (Auto) 100 (0-450) /uL Baso # (Auto) 100 (0-100) /uL PT 13.3 H (10.1-12.7) SECONDS INR 1.2 (0.9-1.3) APTT 34 (26.4-36.2) SECONDS Sodium 123 L D (137-145) mmol/L Potassium 3.5 (3.4-5.1) mmol/L Chloride 83 L (98-107) mmol/L Carbon Dioxide 18 L (22-32) mmol/L BUN 3 L (7-17) mg/dL Creatinine 0.61 (0.52-1.04) mg/dL Estimated GFR > 60.0 (>60) mL/min BUN/Creatinine Ratio 4.9 L (6-22) Glucose 239 H D (70-100) mg/dL Calcium 8.6 (8.4-10.2) mg/dL Magnesium 1.5 L (1.6-2.3) mg/dL Total Bilirubin 1.4 H (0.2-1.3) mg/dL AST 54 H (14-36) IU/L ALT 35 H (<35) IU/L Alkaline Phosphatase 119 (38-126) U/L Total Protein 8.4 H (6.3-8.2) g/dL Albumin 5.0 (3.5-5.0) g/dL Globulin 3.4 (1.7-4.1) g/dL Albumin/Globulin Ratio 1.5 (1.0-2.8) Lipase 132 (23-300) U/L Prolactin 166.1 H (3.0-18.6) ng/mL Ethyl Alcohol < 10 ( - 10) mg/dL Imaging Data CT scan - head: Radiologist's Impression: PROCEDURE:? CT HEAD/BRAIN WO CON ? INDICATIONS:? seizure and unsteady ? TECHNIQUE:? Noncontrast 4.5 mm thick angled axial sections acquired from the foramen magnum to the vertex, with coronal and sagittal reformats.? For radiation dose reduction, the following was used:? automated exposure control, adjustment of mA and/or kV according to patient size.? ? COMPARISON:? [facility], CT, CT HEAD/BRAIN WO CON, 08/14/2021, 19:12. ? FINDINGS:? Image quality:? Excellent.? ? CSF spaces:? Basal cisterns are patent.? No extra-axial fluid collections.? Ventricles are normal in size and shape.? ? Brain:? No midline shift.? No intracranial masses or hemorrhage.? Burt-white matter interface is normal.? ? Skull and face:? Calvarium and visualized facial bones are intact, without suspicious lesions.? ? Sinuses:? Visualized sinuses and mastoids are clear.? ? IMPRESSION:? No evidence acute intracranial process. ? Comment: Final report is concordant with preliminary interpretation provided by [facility]. ? ? Dictated by: Mikey Lowe M.D. on 08/15/2021 at 7:49 ? ? ECG Data Interpretation: Normal sinus rhythm rate 62 LA interval 150 QRS 82 QTC 592 T-wave inversion noted in V2 MDM Narrative Medical decision making narrative: Patient had an alcohol withdrawal seizure. She has had these many times in the past. Today her sodium is 123. She also reports that she is unsteady on her feet for the last couple of days, which is evident in the emergency department. Fortunately head CT is negative. She is feeling better and less head foggy after fluids and time. Dr. Garcia accepts patient Discharge Plan Departure Patient Disposition: Admitted As Inpatient Clinical Impression: Alcohol withdrawal seizure Admit Date/Time: 08/15/21 09:17 Admit Provider: Chirag Garcia
[2021-08-15 07:20] LABS: Albumin Globulin Ratio 1.5 (1.0-2.8); Alkaline Phosphatase 119 U/L (38-126); BUN Creatinine Ratio 4.9 (6-22); Bilirubin Total 1.4 mg/dL (0.2-1.3); Blood Urea Nitrogen 3 mg/dL (7-17); Calcium 8.6 mg/dL (8.4-10.2); Carbon Dioxide 18 mmol/L (22-32); Chloride 83 mmol/L (98-107); Estimated Glomerular Filt Rate > 60.0 mL/min (>60); Ethanol (ETOH) < 10 mg/dL; Globulin 3.4 g/dL (1.7-4.1); Glucose 239 mg/dL (70-100); HEMOLYSIS < 15 (0-50); Lipase 132 U/L (23-300); Magnesium 1.5 mg/dL (1.6-2.3); Potassium 3.5 mmol/L (3.4-5.1); Sodium 123 mmol/L (137-145); Total Protein 8.4 g/dL (6.3-8.2)
[2021-08-15 07:26] LABS: Aspartate Aminotransferase 54 IU/L (14-36)
[2021-08-15 07:27] LABS: Alanine Aminotransferase 35 IU/L (<35)
[2021-08-15 07:37] LABS: Prolactin 166.1 ng/mL (3.0-18.6)
--- NOTE | 2021-08-15 07:42 | DI.CT.S_ITS ---
PROCEDURE: CT HEAD/BRAIN WO CON INDICATIONS: seizure and unsteady TECHNIQUE: Noncontrast 4.5 mm thick angled axial sections acquired from the foramen magnum to the vertex, with coronal and sagittal reformats. For radiation dose reduction, the following was used: automated exposure control, adjustment of mA and/or kV according to patient size. COMPARISON: [facility], CT, CT HEAD/BRAIN WO CON, 08/14/2021, 19:12. FINDINGS: Image quality: Excellent. CSF spaces: Basal cisterns are patent. No extra-axial fluid collections. Ventricles are normal in size and shape. Brain: No midline shift. No intracranial masses or hemorrhage. Burt-white matter interface is normal. Skull and face: Calvarium and visualized facial bones are intact, without suspicious lesions. Sinuses: Visualized sinuses and mastoids are clear. IMPRESSION: No evidence acute intracranial process. Comment: Final report is concordant with preliminary interpretation provided by [facility]. Dictated by: Mikey Lowe M.D. on 08/15/2021 at 7:49 Approved by: Mikey Lowe M.D. on 08/15/2021 at 7:50
[2021-08-15] MEDS: LORazepam 2 MG/ML INJ IV (08:55)
[2021-08-15] MEDS: ACETAMINOPHEN 325 MG TABLET 650 MG PO (09:38)
[2021-08-15] MEDS: MAGNESIUM SULFATE 4 GM/100 ML PIGGYBACK IV (09:39)
[2021-08-15 11:23] LABS: UR Morphine/Opiate cutoff 300 Negative (Negative); Ur Creatinine Normal (Normal); Ur Specific Gravity Normal (Normal); Urine Amphetamines Negative (Negative); Urine Barbiturates Negative (Negative); Urine Benzodiazepines Positive (Negative); Urine Cocaine Negative (Negative); Urine MDMA Negative (Negative); Urine Methadone Negative (Negative); Urine Methamphetamines Negative (Negative); Urine Oxycodone Negative (Negative); Urine Phencyclidine Negative (Negative); Urine Tetrahydrocannabinol Positive (Negative); Urine Tricyclic Antidepressant Negative (Negative); Urine pH Normal (Normal)
[2021-08-15 11:28] LABS: Appearance Urine UA CLEAR; Bilirubin Urine UA NEGATIVE (NEGATIVE); Color Urine UA YELLOW; Glucose Urine UA NEGATIVE (Negative); Ketones Urine UA NEGATIVE (NEGATIVE); Leukocyte Esterase Urine UA TRACE (NEGATIVE); Nitrite Urine UA NEGATIVE (Negative); Occult Blood Urine UA NEGATIVE (Negative); Protein Urine UA NEGATIVE (Negative); Specific Gravity Urine UA <=1.005 (1.000-1.035); Urobilinogen Urine UA 0.2 E.U./dL (0.2)
[2021-08-15 11:30] LABS: pH Urine UA 6.5 (4.5-8.0)
[2021-08-15 11:33] LABS: COVID19 -Nasal RAPID Negative (Negative)
[2021-08-15 11:37] LABS: Bacteria Urine Occasional (0-1); Culture Indicated Urine Specimen Cultured; RBC Urine None Seen (0-5/HPF); Squamous Epithelial Cell Urine 1-5 /HPF (0-5/HPF); WBC Urine 0-1/HPF (0-5/HPF)
--- NOTE | 2021-08-15 11:38 | PC.NURSE ---
Day shift: Pt on unit at approx 1135 from ED. Denies any nausea but does have visible tremors/shaking BUE's. Denies any pain. VS WNL. HR 57 to 65. Denies any pain or nausea. Oriented to room and call light. Agrees to not get OOB w/o help from staff. Pt will be placed on tele as well as SCD's. Call light in reach. Bed alarm is on.
[2021-08-15] MEDS: SODIUM CHLORIDE 0.9% 1,000 ML 150 ML IV ×2 (12:01→18:41)
[2021-08-15] MEDS: LORazepam 1 MG TABLET PO ×2 (17:29→20:07)
--- NOTE | 2021-08-15 17:30 | P.HP_ITS ---
History of Present Illness History of Present Illness Date Patient Seen: 08/15/21 Time Patient Seen: 11:00 Chief complaint: Seizure Narrative: Ms. Burch is a 51W with H alcohol abuse, cirrhosis, well known to the service for repeated admissions for intoxication and withdrawal who presents after a witnessed seizure. She has had seizures previously due to withdrawal. She has been referred to rehab previous visits and has not been. She stopped drinking alcohol over 24 hours ago and had a seizure this morning. She was noted to have tonic clonic movements by partner at bedside. She is not taking her home medications. She felt clammy, nausea. In the ED workup was done, vitals notable for mild hypertension. Labs notable for WBC 8.3, hgb 12.8, plts 354. Na 123, creatinine 0.61. INR 1.2. Mag 1.5. Bili 1.4. Prolaction 166. EtOH negative. CT head shows no acute process. She was ordered for ativan and admitted for further treatment. Patient History Medical History Anxiety Avascular necrosis of bone of hip Bipolar disorder Chicken pox Chlamydia (~1988) Cirrhosis Colon polyp COPD (chronic obstructive pulmonary disease) Depression Esophageal varices Esophageal web Hayfever Hemorrhoids Hypothyroidism (1997) Irregular periods/menstrual cycles MRSA infection Pancytopenia Papillary adenocarcinoma of thyroid Seizures Shoulder pain Substance abuse Surgical History Anesthesia complication History of adenoidectomy History of bunionectomy History of dilation and curettage History of esophageal surgery (2016) History of left hip replacement (08/2017) History of placement of ear tubes History of right hip replacement (11/2017) History of tonsillectomy History of total thyroidectomy (1997) Family & Social History Family History Father No problems noted. Mother Depression Hyperlipidemia Thyroid disorder Mental health problem Brother No problems noted. Grandfather Lung cancer Cancer Grandmother Thyroid disorder Potassium disorder Hyperlipidemia Hypertension Grandfather No problems noted. Grandmother No problems noted. Family/Other No problems noted. Social History: household members significant other Prior Living Arrangements House Safety & Behavioral: Feels Safe in Current Yes Environment Been Physically Hurt or No Threatened By a Person Suicidal Ideation Description None Suicide Plan Description No Plan Tobacco & Substance use: Tobacco type cannabis/marijuana Smoking Status Former smoker alcohol intake current alcohol intake frequency 3 or more drinks per day Substance Use Type marijuana Meds Home Medications and Allergies Home Medications Medication Instructions Recorded Confirmed Type aspirin 81 mg tablet,delayed 81 mg PO DAILY 12/17/19 06/21/21 History release (Adult Low Dose Aspirin) blood sugar diagnostic (True #400 each 03/07/20 06/21/21 Rx Metrix Glucose Test Strip) blood-glucose meter (True Metrix #1 each 03/07/20 06/21/21 Rx Glucose Meter) lancets #400 each 03/07/20 06/21/21 Rx levothyroxine 200 mcg tablet 200 mcg PO DAILY #90 tab 12/10/20 06/21/21 Rx pravastatin 20 mg tablet 20 mg PO BEDTIME #90 tab 03/01/21 06/21/21 Rx liothyronine 5 mcg tablet 10 mcg PO DAILY #180 tab 04/20/21 06/21/21 Rx nadolol 40 mg tablet 40 mg PO DAILY #90 tab 04/26/21 06/21/21 Rx sertraline 50 mg tablet 50 mg PO DAILY #90 tab 05/13/21 06/21/21 Rx multivitamin with folic acid 400 1 tab PO DAILY #30 tab 06/05/21 06/21/21 Rx mcg tablet (Tab-A-Feroz) omeprazole 20 mg capsule,delayed 20 mg PO PRN PRN #90 cap 06/12/21 06/21/21 Rx release asenapine maleate 5 mg sublingual 10 mg SUBLINGUAL BEDTIME tab 06/18/21 06/21/21 History tablet (Saphris) furosemide 40 mg tablet 40 mg PO DAILY #30 tab 06/18/21 06/21/21 Rx hydroxyzine HCl 50 mg tablet 50 mg PO TID PRN #90 tab 06/18/21 06/21/21 Rx metformin 1,000 mg tablet,extended 1,000 mg PO BID #60 tab 06/18/21 06/21/21 Rx release 24hr naltrexone 50 mg tablet 50 mg PO DAILY #30 tab 06/18/21 06/21/21 Rx phenobarbital 32.4 mg tablet 64.8 mg PO Q8H #10 tab 06/24/21 Rx Allergies Allergy/AdvReac Type Severity Reaction Status Date / Time Penicillins [PENICILLINS] Allergy Severe Swelling Verified 06/22/21 13:15 of Lip/Tongue/Throat shellfish derived Allergy Intermediate Rash Verified 06/18/21 14:38 Sulfa (Sulfonamide Allergy Intermediate Rash Verified 06/18/21 14:18 Antibiotics) [SULFA (SULFONAMIDE ANTIBIOTICS)] sulfamethoxazole Allergy Intermediate Rash Verified 06/18/21 14:18 [From Bactrim] trimethoprim [From Bactrim] Allergy Intermediate Rash Verified 06/18/21 14:18 Review of Systems Review of Systems Narrative: 14 systems reviewed and negative aside from what is noted in HPI Exam Vital Signs (past 8 hours): - 08/15/21 09:45 08/15/21 10:15 08/15/21 10:40 Temperature Pulse Rate 63 61 58 L Respiratory Rate 17 17 18 Blood Pressure 146/77 H Pulse Oximetry 97 96 96 08/15/21 11:10 08/15/21 11:35 08/15/21 11:52 Temperature 97.6 F Pulse Rate 63 57 L Respiratory Rate 17 16 Blood Pressure 147/72 H 141/81 H Pulse Oximetry 96 96 97 08/15/21 14:49 08/15/21 16:05 Temperature 97.6 F Pulse Rate 63 Respiratory Rate 16 Blood Pressure 136/78 Pulse Oximetry 97 95 Oxygen Delivery Method Room Air Oxygen Flow Rate 0 Narrative Exam Narrative: GEN: no acute distress HEENT: moist mucous membranes, PERRL NECK: trachea midline, no JVD CV: regular rate and rhythm, no murmurs PULM: clear bilaterally, no wheezes, rhonchi, rales ABD: soft, nontender, nondistended, no organomegaly EXT: warm and well perfused with no edema NEURO: awake alert oriented, with no focal deficits, mildly shaky PSYCH: pleasant, cooperative Objective Labs Result Diagrams: 08/15/21 06:45 08/15/21 06:45 Labs: Laboratory Results - last 24 hr 08/15/21 08/15/21 08/15/21 06:45 06:45 06:45 WBC 8.3 RBC 4.88 Hgb 12.8 Hct 37.8 MCV 77.5 L MCH 26.1 MCHC 33.8 RDW 15.5 H Plt Count 354 Neut % (Auto) 50.2 Lymph % (Auto) 38.7 [place] % (Auto) 8.1 Eos % (Auto) 1.8 L Baso % (Auto) 1.2 Neut # (Auto) 4200 Lymph # (Auto) 3200 [place] # (Auto) 700 Eos # (Auto) 100 Baso # (Auto) 100 PT 13.3 H INR 1.2 APTT 34 Sodium 123 L D Potassium 3.5 Chloride 83 L Carbon Dioxide 18 L BUN 3 L Creatinine 0.61 Estimated GFR > 60.0 BUN/Creatinine Ratio 4.9 L Glucose 239 H D Calcium 8.6 Magnesium 1.5 L Total Bilirubin 1.4 H AST 54 H ALT 35 H Alkaline Phosphatase 119 Total Protein 8.4 H Albumin 5.0 Globulin 3.4 Albumin/Globulin Ratio 1.5 Lipase 132 Prolactin 166.1 H Urine Color Urine Appearance Urine pH Ur Specific [place] Urine Protein Urine Glucose (UA) Urine Ketones Urine Occult Blood Urine Nitrate Urine Bilirubin Urine Urobilinogen Ur Leukocyte Esterase Urine RBC Urine WBC Ur Squamous Epith Cells Urine Bacteria Ur Culture Indicated? U Opiates 300ng/mL cut Ur Oxycodone Screen Urine Methadone Screen Ur Barbiturates Screen U Tricyclic Antidepress Ur Phencyclidine Scrn Ur Amphetamines Screen U Methamphetamines Scrn Ur MDMA Scrn (Ecstasy) U Benzodiazepines Scrn Urine Cocaine Screen U Marijuana (THC) Screen Ethyl Alcohol < 10 SARS-CoV-2 (PCR) 08/15/21 08/15/21 08/15/21 11:00 11:10 11:10 WBC RBC Hgb Hct MCV MCH MCHC RDW Plt Count Neut % (Auto) Lymph % (Auto) [place] % (Auto) Eos % (Auto) Baso % (Auto) Neut # (Auto) Lymph # (Auto) [place] # (Auto) Eos # (Auto) Baso # (Auto) PT INR APTT Sodium Potassium Chloride Carbon Dioxide BUN Creatinine Estimated GFR BUN/Creatinine Ratio Glucose Calcium Magnesium Total Bilirubin AST ALT Alkaline Phosphatase Total Protein Albumin Globulin Albumin/Globulin Ratio Lipase Prolactin Urine Color Yellow Urine Appearance Clear Urine pH 6.5 Ur Specific [place] <=1.005 Urine Protein Negative Urine Glucose (UA) Negative Urine Ketones Negative Urine Occult Blood Negative Urine Nitrate Negative Urine Bilirubin Negative Urine Urobilinogen 0.2 Ur Leukocyte Esterase Trace H Urine RBC None seen Urine WBC 0-1/hpf Ur Squamous Epith Cells 1-5 /hpf Urine Bacteria Occasional (0-1) Ur Culture Indicated? Specimen cultured U Opiates 300ng/mL cut Negative Ur Oxycodone Screen Negative Urine Methadone Screen Negative Ur Barbiturates Screen Negative U Tricyclic Antidepress Negative Ur Phencyclidine Scrn Negative Ur Amphetamines Screen Negative U Methamphetamines Scrn Negative Ur MDMA Scrn (Ecstasy) Negative U Benzodiazepines Scrn Positive H Urine Cocaine Screen Negative U Marijuana (THC) Screen Positive H Ethyl Alcohol SARS-CoV-2 (PCR) Negative Assessment & Plan Assessment & Plan narrative: 1. Acute alcohol withdrawal seizure -continue PRN ativan per ciwa protocol -ordered MVI, thiamine, folate -seizure precautions ordered -patient has stated is interested in quitting previously, but has not been successful and has not followed up with rehab 2. Hyponatremia, hypovolemia -mildly low at 123 -possibly beer potomania -recent checked and much higher, consistent with acute drop -IV fluids ordered 3. Hypothyroidism -continue cytomel, synthroid 4. EtOH cirrhosis with known varices -continue nadolol, hold any diuretics 5. Bipolar disorder -continue saphris 6. Depression -continue sertraline 7. Type 2 Diabetes -hold metformin -ordered for insulin sliding scale 8. Presume hypertension -hold lisinopril Code: Full, proxy is Vitor I have utilized all available resources to reconcile the patient's home medications. Time Spent With Patient Critical Care time: I spent a total of [] minutes of critical care time on this patient's care today; this time is exclusive of procedural time.
[2021-08-15 20:29] LABS: BUN Creatinine Ratio 8.2 (6-22); Blood Urea Nitrogen 4 mg/dL (7-17); Calcium 8.2 mg/dL (8.4-10.2); Carbon Dioxide 24 mmol/L (22-32); Chloride 89 mmol/L (98-107); Estimated Glomerular Filt Rate > 60.0 mL/min (>60); Glucose 166 mg/dL (70-100); HEMOLYSIS 16 (0-50); Magnesium 2.8 mg/dL (1.6-2.3); Potassium 3.1 mmol/L (3.4-5.1); Sodium 125 mmol/L (137-145)
[2021-08-15] MEDS: INSULIN LISPRO 100 UNIT/ML 3ML VIAL SUBCUT (21:26)
[2021-08-16] VITALS (22 sets, daily range): BP systolic 123–160; BP diastolic 61–92; PULSE 69–97; RESP 16–71; TEMP 36.3–37.2; O2SAT 91–98
[2021-08-16] MEDS: LORazepam 1 MG TABLET PO (00:45)
[2021-08-16] MEDS: LORazepam 2 MG/ML INJ IV ×7 (01:45→23:34)
[2021-08-16] MEDS: SODIUM CHLORIDE 0.9% 1,000 ML 150 ML IV (01:50)
[2021-08-16] MEDS: ONDANSETRON 4 MG/2 ML INJ IV (02:58)
[2021-08-16] MEDS: PHENobarbital 65 MG/ML VIAL 130 MG IV ×3 (04:34→10:56)
--- NOTE | 2021-08-16 05:15 | PC.NURSE ---
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 VS stable, re-directable at time, but most of time needed to be in person and closely monitor, received phone read back order for one time dose of 130mg Phenobarbital. After given phenobarbital, monitor pt with coordinator at bedside, CIWA score was still 16, pt started hallucinating, unable to redirect, notified Dr. Martinez, was instructed to move pt to ICU, Cardiac rhythm has been Sinus Rhythm, denied pain. Continue to monitor.
[2021-08-16] MEDS: LORazepam 20 MG in SODIUM CHLORIDE 0.9% 100 ML IV (06:31)
[2021-08-16 06:49] LABS: Calcium 8.3 mg/dL (8.4-10.2); Carbon Dioxide 24 mmol/L (22-32); Chloride 102 mmol/L (98-107); Estimated Glomerular Filt Rate > 60.0 mL/min (>60); Glucose 166 mg/dL (70-100); HEMOLYSIS < 15 (0-50); Magnesium 2.1 mg/dL (1.6-2.3); Phosphorous 3.3 mg/dL (2.5-4.5); Sodium 135 mmol/L (137-145)
[2021-08-16 06:59] LABS: BUN Creatinine Ratio 4.3 (6-22); Blood Urea Nitrogen < 2 mg/dL (7-17)
--- NOTE | 2021-08-16 07:38 | PC.NURSE ---
AM Note-Patient transferred to ICU room 230 from for severe Alcohol withdrawl, [id number], very restless and confused with moderate hallucinations. 2mg IVP Ativan given, followed by initiation of Ativan infusion 0.01mg/kg/hr. VSS, denies pain.
[2021-08-16] MEDS: ENOXAPARIN 40 MG/0.4 ML SYRINGE SUBCUT (08:40)
[2021-08-16] MEDS: THIAMINE 100 MG TABLET PO (08:44)
[2021-08-16] MEDS: FOLIC ACID 1 MG TABLET PO (08:44)
[2021-08-16] MEDS: MULTIVITAMIN 1 TABLET 1 TAB PO (08:44)
--- NOTE | 2021-08-16 08:46 | PM.PN.1 ---
Subjective Subjective Date Patient Seen: 08/16/21 Time Patient Seen: 08:15 Interval history: Very confused this AM. Pulling at lines, non-sensical responses to questions. On ativan infusion. Has previously responded well to phenobarb. Will redose this AM, possible precedex. Exam Vital Signs (past 8 hours): - 08/16/21 01:39 08/16/21 02:00 08/16/21 03:15 Temperature Pulse Rate 72 94 H Respiratory Rate 18 20 Blood Pressure 132/73 151/77 H Pulse Oximetry 96 08/16/21 04:02 08/16/21 04:16 08/16/21 05:11 Temperature 97.6 F 97.7 F Pulse Rate 77 94 H 77 Respiratory Rate 18 18 20 Blood Pressure 132/92 H 151/77 H 123/79 Pulse Oximetry 95 97 08/16/21 06:30 08/16/21 07:00 08/16/21 07:15 Temperature 97.6 F Pulse Rate 90 93 H Respiratory Rate 20 24 Blood Pressure 142/65 H Pulse Oximetry 92 92 08/16/21 08:00 Temperature Pulse Rate 97 H Respiratory Rate 26 H Blood Pressure Pulse Oximetry Oxygen Delivery Method Room Air Oxygen Flow Rate 0 Narrative Exam Narrative: GEN: confused, anxious female, restless and pulling at IV lines. HEENT: moist mucous membranes, PERRL NECK: trachea midline, no JVD CV: regular rate and rhythm, no murmurs PULM: clear bilaterally, no wheezes, rhonchi, rales ABD: soft, nontender, nondistended, no organomegaly EXT: warm and well perfused with no edema NEURO: awake, not oriented. Non-sensical responses to questions. No obvious tremulousness and no-tongue fasciculations. PSYCH: agitated, unable to further assess. Objective Labs Result Diagrams: 08/15/21 06:45 08/16/21 06:30 Labs: Laboratory Results - last 24 hr 08/15/21 08/15/21 08/15/21 11:00 11:10 11:10 Sodium Potassium Chloride Carbon Dioxide BUN Creatinine Estimated GFR BUN/Creatinine Ratio Glucose Calcium Phosphorus Magnesium Urine Color Yellow Urine Appearance Clear Urine pH 6.5 Ur Specific [place] <=1.005 Urine Protein Negative Urine Glucose (UA) Negative Urine Ketones Negative Urine Occult Blood Negative Urine Nitrate Negative Urine Bilirubin Negative Urine Urobilinogen 0.2 Ur Leukocyte Esterase Trace H Urine RBC None seen Urine WBC 0-1/hpf Ur Squamous Epith Cells 1-5 /hpf Urine Bacteria Occasional (0-1) Ur Culture Indicated? Specimen cultured U Opiates 300ng/mL cut Negative Ur Oxycodone Screen Negative Urine Methadone Screen Negative Ur Barbiturates Screen Negative U Tricyclic Antidepress Negative Ur Phencyclidine Scrn Negative Ur Amphetamines Screen Negative U Methamphetamines Scrn Negative Ur MDMA Scrn (Ecstasy) Negative U Benzodiazepines Scrn Positive H Urine Cocaine Screen Negative U Marijuana (THC) Screen Positive H SARS-CoV-2 (PCR) Negative 08/15/21 08/16/21 15:13 06:30 Sodium 125 L 135 L D Potassium 3.1 L 3.0 L Chloride 89 L 102 Carbon Dioxide 24 24 BUN 4 L < 2 L Creatinine 0.49 L 0.47 L Estimated GFR > 60.0 > 60.0 BUN/Creatinine Ratio 8.2 4.3 L Glucose 166 H 166 H Calcium 8.2 L 8.3 L Phosphorus 3.3 Magnesium 2.8 H 2.1 Urine Color Urine Appearance Urine pH Ur Specific [place] Urine Protein Urine Glucose (UA) Urine Ketones Urine Occult Blood Urine Nitrate Urine Bilirubin Urine Urobilinogen Ur Leukocyte Esterase Urine RBC Urine WBC Ur Squamous Epith Cells Urine Bacteria Ur Culture Indicated? U Opiates 300ng/mL cut Ur Oxycodone Screen Urine Methadone Screen Ur Barbiturates Screen U Tricyclic Antidepress Ur Phencyclidine Scrn Ur Amphetamines Screen U Methamphetamines Scrn Ur MDMA Scrn (Ecstasy) U Benzodiazepines Scrn Urine Cocaine Screen U Marijuana (THC) Screen SARS-CoV-2 (PCR) [facility] Medical History Anxiety Avascular necrosis of bone of hip Bipolar disorder Chicken pox Chlamydia (~1988) Cirrhosis Colon polyp COPD (chronic obstructive pulmonary disease) Depression Esophageal varices Esophageal web Hayfever Hemorrhoids Hypothyroidism (1997) Irregular periods/menstrual cycles MRSA infection Pancytopenia Papillary adenocarcinoma of thyroid Seizures Shoulder pain Substance abuse Surgical History Anesthesia complication History of adenoidectomy History of bunionectomy History of dilation and curettage History of esophageal surgery (2016) History of left hip replacement (08/2017) History of placement of ear tubes History of right hip replacement (11/2017) History of tonsillectomy History of total thyroidectomy (1997) Family History Father No problems noted. Mother Depression Hyperlipidemia Thyroid disorder Mental health problem Brother No problems noted. Grandfather Lung cancer Cancer Grandmother Thyroid disorder Potassium disorder Hyperlipidemia Hypertension Grandfather No problems noted. Grandmother No problems noted. Family/Other No problems noted. Social History household members: significant other Smoking Status: Former smoker alcohol intake: current substance use type: does not use eating out: rarely or never Type(s) of exercise: none Assessment & Plan Assessment & Plan narrative: 1. Acute alcohol withdrawal seizure and delirium tremens -continue seizure precautions -started on ativan infusion overnight, minimal improvement today, remains agitated and confused -load with phenobarb, 130 mg q30min x4 doses initially. -with improvement continue phenobarb 130 mg q8hr, then tape. -wean from ativan infusion. If off of ativan infusion can be regular floor care. 2. Hyponatremia, hypovolemia -mildly low at 123, resolved very quickly with IV fluids. Monitor neuro status. IV fluids discontinued. 3. Hypothyroidism -continue cytomel, synthroid 4. EtOH cirrhosis with known varices -continue nadolol, hold any diuretics 5. Bipolar disorder -continue saphris 6. Depression -continue sertraline 7. Type 2 Diabetes -hold metformin -ordered for insulin sliding scale 8. Presume hypertension -hold lisinopril Code: Full, proxy is Vitor I have utilized all available resources to reconcile the patient's home medications. I spent 35 minutes providing critical care management this patient. This excludes time spent in performing separately billed procedures. Time Spent With Patient Critical Care time: I spent a total of [] minutes of critical care time on this patient's care today; this time is exclusive of procedural time.
--- NOTE | 2021-08-16 08:57 | PC.NURSE ---
Addendum entered by Hayley Kerr R.N. 08/16/21 10:05: 1000 - Reported off to STIVEN Aburto. Patient resting peacefully in bed. Vital signs stable. Original Note: AM - Received patient from operations supervisor 2nd shift RN. Patient awake and actively going through withdrawals. On ativan gtt (titrated up for Dr. Kitchen - see emar) and given ativan pushes per emar with little to no effect. Patient constantly crawling around in bed and pulling at lines. Removed blood pressure cuff and attempting to pull out only IV access. Will close eyes and snore periodically for about a minute, but then wakes up and attempts to crawl out of bed. Dr. Kitchen to bedside and gave order for phenobarbital prn which he states has historically worked for patient's withdrawals. Given 1 dose per order and patient now resting peacefully in bed with eyes closed and even, unlabored breathing. All vital sign monitors replaced on patient and vitals are stable. Patient has been 1:1 care and monitoring all morning due to high ciwa and restlessness. Dr. Kitchen updated on sodium and potassium levels this AM.
[2021-08-16] MEDS: POTASSIUM CHLORIDE IN WATER 10 MEQ/100 ML PIGGYBACK 100 MEQ IV ×6 (09:50→17:48)
--- NOTE | 2021-08-16 11:09 | PC.NURSE ---
Addendum entered by Criselda Luna R.N. 08/16/21 17:50: 1600-Pt is alert and responsive when checked, where am I Reoriented to Place and admit to Hospital. Pt is Alert and can orient to our conversation. Pt states that she is drowsy, but otherwise denies pain, no LITTLE, tremors are mild to hand. Pt states no tactile or auditory hallucinations, CIWA score of 3 at present. Resting with even respirations Addendum entered by Criselda Luna R.N. 08/16/21 13:03: 1300-Pt has been comfortable since receiving Phenobarbital. SO at bedside, update provided. He has been through this acute phase of detox with Pt prior and is not suprised by her decline. He reports presenting to the ER earlier this week and at least once last week, in hopes of trying to get Pt into inpatient detox and rehab. D/t patient lack of transportation, outpatient is not a realistic option for her. It sounds like she is in need of dual diagnosis inpatient treatment. Per SO Pt has been cutting back on her psych to treat her bipolar disorder, to make the meds last longer. Jennifer from CM into get update Original Note: 1000-assumed care of Pt, who is peaceful at this time. RR stable 22-26 snoring. Spo2 100% on 1L NC. Unable to obtain BP d/t increased agitation. Lungs clear, HRR. Tele in place NSR. PIV x2. K+ infusing. Pt began getting amped up, rolling in bed and yelling. IV Phenobarbital given with good effect. While Pt was peaceful, placed jones, immediate 400+ clear yellow output. Pt continues with restful sleep and close observation from staff. Seizure pads in place, suction ready at bedside. BA active.
--- NOTE | 2021-08-16 11:22 | PM.CN.EICU ---
History of Present Illness Consult details Chief complaint: Seizure :: This patient was seen via real time interactive two-way audiovisual telecommunication. 51 year old woman admitted for ETOH withdrawal. While on CIWA protocll on medical floors, she entered DT and had a withdrawal associated seizure. She was trasnferred to the ICU overnight and started on an ativan gtt. Given Phenobarbital this AM with improvement. [facility] Medical History Anxiety Avascular necrosis of bone of hip Bipolar disorder Chicken pox Chlamydia (~1988) Cirrhosis Colon polyp COPD (chronic obstructive pulmonary disease) Depression Esophageal varices Esophageal web Hayfever Hemorrhoids Hypothyroidism (1997) Irregular periods/menstrual cycles MRSA infection Pancytopenia Papillary adenocarcinoma of thyroid Seizures Shoulder pain Substance abuse Surgical History Anesthesia complication History of adenoidectomy History of bunionectomy History of dilation and curettage History of esophageal surgery (2016) History of left hip replacement (08/2017) History of placement of ear tubes History of right hip replacement (11/2017) History of tonsillectomy History of total thyroidectomy (1997) Family History Father No problems noted. Mother Depression Hyperlipidemia Thyroid disorder Mental health problem Brother No problems noted. Grandfather Lung cancer Cancer Grandmother Thyroid disorder Potassium disorder Hyperlipidemia Hypertension Grandfather No problems noted. Grandmother No problems noted. Family/Other No problems noted. Social History household members: significant other Smoking Status: Former smoker alcohol intake: current substance use type: does not use eating out: rarely or never Type(s) of exercise: none Current Medications Current Medications Medications: Home Medications aspirin 81 mg tablet,delayed release (Adult Low Dose Aspirin) 81 mg PO DAILY 12/17/19 [History Confirmed 06/21/21] blood sugar diagnostic (True Metrix Glucose Test Strip) #400 each 03/07/20 [Rx Confirmed 06/21/21] blood-glucose meter (True Metrix Glucose Meter) #1 each 03/07/20 [Rx Confirmed 06/21/21] lancets #400 each 03/07/20 [Rx Confirmed 06/21/21] levothyroxine 200 mcg tablet 200 mcg PO DAILY #90 tab 12/10/20 [Rx Confirmed 06/21/21] pravastatin 20 mg tablet 20 mg PO BEDTIME #90 tab 03/01/21 [Rx Confirmed 06/21/21] liothyronine 5 mcg tablet 10 mcg PO DAILY #180 tab 04/20/21 [Rx Confirmed 06/21/21] nadolol 40 mg tablet 40 mg PO DAILY #90 tab 04/26/21 [Rx Confirmed 06/21/21] sertraline 50 mg tablet 50 mg PO DAILY #90 tab 05/13/21 [Rx Confirmed 06/21/21] multivitamin with folic acid 400 mcg tablet (Tab-A-Feroz) 1 tab PO DAILY #30 tab 06/05/21 [Rx Confirmed 06/21/21] omeprazole 20 mg capsule,delayed release 20 mg PO PRN PRN #90 cap 06/12/21 [Rx Confirmed 06/21/21] asenapine maleate 5 mg sublingual tablet (Saphris) 10 mg SUBLINGUAL BEDTIME tab 06/18/21 [History Confirmed 06/21/21] furosemide 40 mg tablet 40 mg PO DAILY #30 tab 06/18/21 [Rx Confirmed 06/21/21] hydroxyzine HCl 50 mg tablet 50 mg PO TID PRN #90 tab 06/18/21 [Rx Confirmed 06/21/21] metformin 1,000 mg tablet,extended release 24hr 1,000 mg PO BID #60 tab 06/18/21 [Rx Confirmed 06/21/21] naltrexone 50 mg tablet 50 mg PO DAILY #30 tab 06/18/21 [Rx Confirmed 06/21/21] phenobarbital 32.4 mg tablet 64.8 mg PO Q8H #10 tab 06/24/21 [Rx] Visit Medications (administered) Generic Name Dose Route Start Last Admin Trade Name Freq PRN Reason Stop Dose Admin Acetaminophen 650 mg 08/15/21 09:13 08/15/21 09:38 Acetaminophen 325 Mg Tablet PO 650 mg Q6HR PRN Administration pain Enoxaparin Sodium 40 mg 08/16/21 09:00 08/16/21 08:40 Enoxaparin 40 Mg/0.4 Ml Syringe SUBCUT 40 mg DAILY CORDELIA Administration Folic Acid 1 mg 08/16/21 09:00 08/16/21 08:44 Folic Acid 1 Mg Tablet PO 1 mg DAILY CORDELIA Administration Lorazepam 20 mg/ Sodium 110 mls @ 4.74 mls/hr 08/16/21 05:15 08/16/21 08:26 Chloride IV 0.03 mg/kg/hr TITRATE CORDELIA 14.22 mls/hr Titration Protocol 0.01 MG/KG/HR POTASSIUM CHLORIDE IN WATER 10 meq in 100 mls @ 100 mls/hr 08/16/21 09:00 08/16/21 09:50 Potassium Cl 10 Meq/100 Ml Deborah IV 08/16/21 14:59 100 mls/hr Q1H CORDELIA Administration Insulin Human Lispro 0 unit 08/15/21 16:45 08/16/21 08:46 Insulin Lispro 100 Unit/Ml 3ml Vial SUBCUT Not Given ACHS CORDELIA Protocol Lorazepam 0 mg 08/15/21 09:13 08/16/21 08:02 Lorazepam 2 Mg/Ml Inj IV 2 mg CIWAPRN PRN Administration Alcohol Withdrawal Protocol Lorazepam 0 mg 08/15/21 09:13 08/16/21 00:45 Lorazepam 1 Mg Tablet PO 2 mg CIWAPRN PRN Administration Alcohol Withdrawal Protocol Multivitamins 1 tab 08/16/21 09:00 08/16/21 08:44 Multivitamin 1 Tablet PO 1 tab DAILY CORDELIA Administration Ondansetron HCl 4 mg 08/15/21 09:13 08/16/21 02:58 Ondansetron 4 Mg/2 Ml Inj IV 4 mg Q8HR PRN Administration Nausea And Vomiting Phenobarbital 130 mg 08/16/21 08:27 08/16/21 10:56 Phenobarbital 65 Mg/Ml Vial IV 130 mg Q30M PRN Administration Alcohol Withdrawal Thiamine HCl 100 mg 08/16/21 09:00 08/16/21 08:44 Thiamine 100 Mg Tablet PO 08/19/21 09:01 100 mg DAILY CORDELIA Administration Exam Vital Signs (past 8 hours): - 08/16/21 04:02 08/16/21 04:16 08/16/21 05:11 Temperature 97.6 F 97.7 F Pulse Rate 77 94 H 77 Respiratory Rate 18 18 20 Blood Pressure 132/92 H 151/77 H 123/79 Pulse Oximetry 95 97 08/16/21 06:30 08/16/21 07:00 08/16/21 07:15 Temperature 97.6 F Pulse Rate 90 93 H Respiratory Rate 20 24 Blood Pressure 142/65 H Pulse Oximetry 92 92 08/16/21 08:00 08/16/21 08:55 08/16/21 09:20 Temperature Pulse Rate 97 H 82 Respiratory Rate 26 H 28 H Blood Pressure 160/72 H Pulse Oximetry 91 93 08/16/21 10:14 08/16/21 10:24 Temperature 98.6 F Pulse Rate 77 Respiratory Rate 27 H Blood Pressure Pulse Oximetry 96 96 Oxygen Delivery Method Nasal Cannula Oxygen Flow Rate 1 Narrative Exam Narrative: surrogate for exam is primary team Objective Labs Result Diagrams: 08/15/21 06:45 08/16/21 06:30 Labs: Laboratory Results - last 24 hr 08/15/21 08/15/21 08/15/21 11:00 11:10 11:10 Sodium Potassium Chloride Carbon Dioxide BUN Creatinine Estimated GFR BUN/Creatinine Ratio Glucose Calcium Phosphorus Magnesium Urine Color Yellow Urine Appearance Clear Urine pH 6.5 Ur Specific [place] <=1.005 Urine Protein Negative Urine Glucose (UA) Negative Urine Ketones Negative Urine Occult Blood Negative Urine Nitrate Negative Urine Bilirubin Negative Urine Urobilinogen 0.2 Ur Leukocyte Esterase Trace H Urine RBC None seen Urine WBC 0-1/hpf Ur Squamous Epith Cells 1-5 /hpf Urine Bacteria Occasional (0-1) Ur Culture Indicated? Specimen cultured Nasal Screen MRSA (PCR) U Opiates 300ng/mL cut Negative Ur Oxycodone Screen Negative Urine Methadone Screen Negative Ur Barbiturates Screen Negative U Tricyclic Antidepress Negative Ur Phencyclidine Scrn Negative Ur Amphetamines Screen Negative U Methamphetamines Scrn Negative Ur MDMA Scrn (Ecstasy) Negative U Benzodiazepines Scrn Positive H Urine Cocaine Screen Negative U Marijuana (THC) Screen Positive H SARS-CoV-2 (PCR) Negative 08/15/21 08/16/21 08/16/21 15:13 06:00 06:30 Sodium 125 L 135 L D Potassium 3.1 L 3.0 L Chloride 89 L 102 Carbon Dioxide 24 24 BUN 4 L < 2 L Creatinine 0.49 L 0.47 L Estimated GFR > 60.0 > 60.0 BUN/Creatinine Ratio 8.2 4.3 L Glucose 166 H 166 H Calcium 8.2 L 8.3 L Phosphorus 3.3 Magnesium 2.8 H 2.1 Urine Color Urine Appearance Urine pH Ur Specific [place] Urine Protein Urine Glucose (UA) Urine Ketones Urine Occult Blood Urine Nitrate Urine Bilirubin Urine Urobilinogen Ur Leukocyte Esterase Urine RBC Urine WBC Ur Squamous Epith Cells Urine Bacteria Ur Culture Indicated? Nasal Screen MRSA (PCR) Positive for mrsa H U Opiates 300ng/mL cut Ur Oxycodone Screen Urine Methadone Screen Ur Barbiturates Screen U Tricyclic Antidepress Ur Phencyclidine Scrn Ur Amphetamines Screen U Methamphetamines Scrn Ur MDMA Scrn (Ecstasy) U Benzodiazepines Scrn Urine Cocaine Screen U Marijuana (THC) Screen SARS-CoV-2 (PCR) Assessment & Plan Assessment and plan (1) Alcohol intoxication: Status: Acute (2) Alcohol withdrawal seizure: Status: Acute (3) Alcoholic cirrhosis of liver: Qualifiers: Ascites presence: with ascites Qualified Code(s): K70.31 - Alcoholic cirrhosis of liver with ascites Status: Chronic (4) Type 2 diabetes mellitus: Qualifiers: Diabetes mellitus fci insulin use: without fci use Diabetes mellitus complication status: without complication Qualified Code(s): E11.9 - Type 2 diabetes mellitus without complications Status: Chronic (5) Hyperlipidemia associated with type 2 diabetes mellitus: Status: Chronic (6) Hypothyroidism associated with surgical procedure: Status: Chronic (7) Delirium tremens: Status: Acute Assessment & Plan narrative: Assessment DT alchool withdrawal DM cirrhosis of liver with history of varices ( no albumin level, but otherwsie synthethic function seems reasonable) HLD Plan can continue ativan gtt at current dosing, howeer if her requiremetns go up, should switch to precedex cont phenobabr prn, if she requires more prn doses, will start a phenobarb taper NPO for now IVF resuscitation FS q 6 hrs hold statin dvt ppx trend cbc/bmp daily multivitamin CCT 35 min Time Spent With Patient Critical Care time: I spent a total of [] minutes of critical care time on this patient's care today; this time is exclusive of procedural time.
--- NOTE | 2021-08-16 15:29 | CM.IDA ---
Initial DCP Assessment Note Pt is a 51 yo female, lives in [place] w/ SO Thuan. Arrives after a witnessed seizure by S.O.; patient and S.O. were attempting detox process at home.. tapering patient's alcohol use. Patient admitted for medical management through alcohol withdraw, PMH includes seizure disorder, rt hip surgery and rt foot drop PCP: Miguel Ángel Leary Payer: Henri/VOLODYMYR Reviewed chart. Patient familiar to this [employer] team from multiple admissions for same; this is patient's third admission in last few months w/two ER visits in the last week. According to review of notes, [facility], sadly, no longer completes D/A assessments at bedside. 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 Patient has a [facility] coordinator Alecia [phone]. No current psychiatrist per S.O Patient sleeping throughout the day today, S.O. Thuan requested to speak with this FABRIC FINISHER Patient/Thuan have been living together for approx 4 years. Thuan explains how concerned he is for patient's safety, states that any little thing can throw her into a drinking binge. Patient had a D/A assessment scheduled in [place] today which, sadly, she has now missed. In addition, patient has a tele health visit w/ a new psychiatrist on Thursday, S.O. not familiar with whom this is scheduled Thuan describes an escalation of patient's symptoms from MH dx- Bipolar Disorder and severe depression w/anxiety. Patient admitted to hearing voices that weren't there last week and felt people are listening to our conversations. Patient has not been taking her psychiatric medications and alcohol consumption has been rising. Patient endorses fleeting thoughts of suicide. Patient outwardly drinks approx fifth and a half of Vodka daily and S.O. reports patient sneaks airplane sized liquor bottles, moonshine from S.O.'s top cabinet and has even gotten desperate enough to drink S.O.'s listerine and Nyquil. S.O. has asked patient to get a counselor or psychiatrist to assist in coping strategies as patient has long standing hx of trauma throughout her life. Discussed limitations in process to secure both inpatient JASMIN treatment and inpatient psychiatric treatment. S.O. states familiarity with this. Discussed Cassius's Law if patient is not agreeable to help/follow up, educated that this would be ultimately the decision of [facility] dispatch. S.O. has researched Cassius's Law, states he would gladly fill out an affidavit outlining his concerns S.O. feeling somewhat overwhelmed; patient often initially wants help but when she begins to feel better will decline help and continue drinking. Patient has hx of multiple suicide attempts, last attempt was in [place] when patient had taken pills and drank bleach, resulting in need for esophageal stent placement. Patient would benefit from inpatient psychiatric and JASMIN treatment and stabilization. Unsure what will be available to patient Will plan to review above, POC/DCP options with patient when she can participate in assessment Following closely BEATRICE Gutierres Discharge Planning/Care Management CM Discharge Assessment Start: 08/16/21 15:23 Freq: Status: Active Protocol: Document 08/16/21 15:23 FRANKIE (Rec: 08/16/21 15:29 FRANKIE [id number]) Discharge Planning Assessment Assigned Lactation Nurse BEATRICE Kelly DPOA/Assigned Designee Name Thuan Dhillon SRomanaORomana P# Advance Directives? No Advance Directives on File No History Provided By Significant Other,Medical Record Comment Admissions 1..22-1.26.22 and 2.11-2.15 same presentation Prior Living Arrangements House Household Members significant other Type of transporation used prior to Relies on Others admit Independent with ADL's Yes: Drop foot, poor activity tolerance Is patient alert and oriented? Yes Needs Assistance With Home Chores / Shopping Comment She has a walk in shower Patient/Family Preference S.O. hopes patient can DC to inpatient stabilization, states he is very concerned about patient Barriers to Discharge Yes Comment Patient very lethargic today, unable to discuss POC/DCP w/ patient. SO very concerned and endorses grave disability d/t ongoing, persistent and increased alcohol consumption. ..Cassius's Law candidate ?
[2021-08-16 17:07] LABS: HEMOLYSIS 25 (0-50); Potassium 3.4 mmol/L (3.4-5.1)
--- NOTE | 2021-08-16 17:16 | DIET.CONS ---
Dietary Consultation Note Admission Date: 08/15/2021 09:17 Assessment: 51 y/o F admitted c acute ETOH withdrawal. Not currently appropriate for full nutrition assessment. Will try again next shift, 3 days. No weight loss per EMR. Last PO x 100% Last hgA1c was in goal range at 6.5% Na 135 L K: 3.4 (improved from 3) phos: 3.3 M.1 AST: 54 H ALT: 35 H Ht: 157.48 cm Wt: 85.2 kg BMI: 34.7 Last BM: 08/16/21 (08/16/21 02:32) MNA: 13 Jackson Score: 12 Diet: 08/15/21 Dinner General (Regular) Diet Diet Modifications: mechanical soft Nutrition Percent Meal Consumed 100% 08/15/21 18:05 Percent Meal Consumed 100% 08/15/21 14:00 Labs: RBC 4.88 X10^6/uL (4.0-5.2) 08/15/21 06:45 Hgb 12.8 g/dL (12.0-16.0) 08/15/21 06:45 Hct 37.8 % (36-46) 08/15/21 06:45 Creatinine 0.47 mg/dL (0.52-1.04) L 08/16/21 06:30 Nutrition Diagnosis: Excessive ETOH intake r/t complex 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
[2021-08-16] MEDS: PHENobarbital 65 MG/ML VIAL IV (20:50)
[2021-08-16] MEDS: SODIUM CHLORIDE 0.9% FLUSH 10 ML IV (23:35)
[2021-08-17] VITALS (10 sets, daily range): BP systolic 120–161; BP diastolic 73–94; PULSE 77–93; RESP 16–38; TEMP 36.5–37; O2SAT 93–97
[2021-08-17] MEDS: SODIUM CHLORIDE 0.9% FLUSH 10 ML IV ×3 (03:39→20:59)
[2021-08-17] MEDS: PHENobarbital 65 MG/ML VIAL IV (03:39)
--- NOTE | 2021-08-17 05:15 | PC.NURSE ---
Patient slept long periods throughout night. Patient awake this morning and remembering yesterday's date when asked about date. Oriented to self and birthday, but states this is [place] and she can't recall situation. Patient endorses feeling paranoid and hears voices. States she also sees people that she realizes aren't there. Patient states that sometimes she thinks the voices are talking about her, It makes me paranoid. Patient is cooperative. [facility] 8-11. Medicated per [facility] Protocol. Patient increasing fluid intake and jones draining large amounts of urine.
[2021-08-17] MEDS: LORazepam 1 MG TABLET PO (05:27)
[2021-08-17] MEDS: ENOXAPARIN 40 MG/0.4 ML SYRINGE SUBCUT (08:23)
[2021-08-17] MEDS: FOLIC ACID 1 MG TABLET PO (08:23)
[2021-08-17] MEDS: THIAMINE 100 MG TABLET PO (08:23)
[2021-08-17] MEDS: INSULIN LISPRO 100 UNIT/ML 3ML VIAL SUBCUT (08:23)
[2021-08-17] MEDS: MULTIVITAMIN 1 TABLET 1 TAB PO (08:23)
[2021-08-17 08:57] LABS: Add Manual Diff / Slide Review NO; Basophils Absolute Auto 100 /uL (0-100); Basophils Percent Auto 0.9 % (0-2); Eosinophils Absolute Auto 200 /uL (0-450); Eosinophils Percent Auto 3.1 % (2-4); Hematocrit 33.9 % (36-46); Hemoglobin 11.2 g/dL (12.0-16.0); Lymphocytes Absolute Auto 1800 /uL (1100-4500); Lymphocytes Percent Auto 31.2 % (25-40); Mean Corpuscular HGB Conc 32.9 % (30-36); Mean Corpuscular Volume 79.1 fL (80-100); Monocytes Absolute Auto 300 /uL (0-900); Monocytes Percent Auto 5.1 % (3-14); Neutrophils Absolute Auto 3500 /uL (1500-7000); Neutrophils Percent Auto 59.7 % (50-75); Platelet Count 181 X10^3/uL (150-400); Red Blood Cell Count 4.28 X10^6/uL (4.0-5.2); Red Cell Distribution Width 15.9 % (11.6-14.8); White Blood Cell Count 5.9 X10^3/uL (4.5-11.0)
[2021-08-17 09:07] LABS: Alanine Aminotransferase 24 IU/L (<35); Albumin 4.2 g/dL (3.5-5.0); Albumin Globulin Ratio 1.3 (1.0-2.8); Alkaline Phosphatase 96 U/L (38-126); Aspartate Aminotransferase 37 IU/L (14-36); Bilirubin Total 0.7 mg/dL (0.2-1.3); Calcium 8.7 mg/dL (8.4-10.2); Carbon Dioxide 26 mmol/L (22-32); Chloride 99 mmol/L (98-107); Estimated Glomerular Filt Rate > 60.0 mL/min (>60); Globulin 3.3 g/dL (1.7-4.1); Glucose 190 mg/dL (70-100); HEMOLYSIS < 15 (0-50); Magnesium 1.9 mg/dL (1.6-2.3); Potassium 3.5 mmol/L (3.4-5.1); Sodium 132 mmol/L (137-145); Total Protein 7.5 g/dL (6.3-8.2)
[2021-08-17 09:09] LABS: BUN Creatinine Ratio 4.4 (6-22); Blood Urea Nitrogen < 2 mg/dL (7-17)
--- NOTE | 2021-08-17 10:29 | P.PN_ITS ---
Subjective Subjective Date Patient Seen: 08/17/21 Time Patient Seen: 09:15 Interval history: Much improved this AM. remains confused but much more oriented than yesterday. Denies chest pain, abdominal pain, nausea, vomiting. Does not remember yesterday at all. Exam Vital Signs (past 8 hours): - 08/17/21 03:00 08/17/21 04:00 08/17/21 06:27 Temperature 97.7 F Pulse Rate 77 89 Respiratory Rate 23 24 Blood Pressure 150/73 H 150/73 H Pulse Oximetry 96 97 08/17/21 08:00 08/17/21 10:00 Temperature 98.3 F Pulse Rate 86 Respiratory Rate 23 Blood Pressure 161/77 H Pulse Oximetry 93 94 Oxygen Delivery Method Room Air Oxygen Flow Rate 0 Narrative Exam Narrative: GEN: awake and alert female, no acute distress. HEENT: moist mucous membranes, PERRL NECK: trachea midline, no JVD CV: regular rate and rhythm, no murmurs PULM: clear bilaterally, no wheezes, rhonchi, rales ABD: soft, nontender, nondistended, no organomegaly EXT: warm and well perfused with no edema NEURO: awake, oriented to name. Almost no short term memory retention. No obvious tremulousness and no-tongue fasciculations. PSYCH: calm, cooperative. Objective Labs Result Diagrams: 08/17/21 08:40 08/17/21 08:40 Labs: Laboratory Results - last 24 hr 08/16/21 08/17/21 08/17/21 16:10 08:40 08:40 WBC 5.9 RBC 4.28 Hgb 11.2 L Hct 33.9 L MCV 79.1 L MCH 26.0 MCHC 32.9 RDW 15.9 H Plt Count 181 Neut % (Auto) 59.7 Lymph % (Auto) 31.2 [place] % (Auto) 5.1 Eos % (Auto) 3.1 Baso % (Auto) 0.9 Neut # (Auto) 3500 Lymph # (Auto) 1800 [place] # (Auto) 300 Eos # (Auto) 200 Baso # (Auto) 100 Sodium 132 L Potassium 3.4 3.5 Chloride 99 Carbon Dioxide 26 BUN < 2 L Creatinine 0.45 L Estimated GFR > 60.0 BUN/Creatinine Ratio 4.4 L Glucose 190 H Calcium 8.7 Magnesium 1.9 Total Bilirubin 0.7 AST 37 H ALT 24 Alkaline Phosphatase 96 Total Protein 7.5 Albumin 4.2 Globulin 3.3 Albumin/Globulin Ratio 1.3 PFSH Medical History Anxiety Avascular necrosis of bone of hip Bipolar disorder Chicken pox Chlamydia (~1988) Cirrhosis Colon polyp COPD (chronic obstructive pulmonary disease) Depression Esophageal varices Esophageal web Hayfever Hemorrhoids Hypothyroidism (1997) Irregular periods/menstrual cycles MRSA infection Pancytopenia Papillary adenocarcinoma of thyroid Seizures Shoulder pain Substance abuse Surgical History Anesthesia complication History of adenoidectomy History of bunionectomy History of dilation and curettage History of esophageal surgery (2016) History of left hip replacement (08/2017) History of placement of ear tubes History of right hip replacement (11/2017) History of tonsillectomy History of total thyroidectomy (1997) Family History Father No problems noted. Mother Depression Hyperlipidemia Thyroid disorder Mental health problem Brother No problems noted. Grandfather Lung cancer Cancer Grandmother Thyroid disorder Potassium disorder Hyperlipidemia Hypertension Grandfather No problems noted. Grandmother No problems noted. Family/Other No problems noted. Social History household members: significant other Smoking Status: Former smoker alcohol intake: current substance use type: does not use eating out: rarely or never Type(s) of exercise: none Assessment & Plan Assessment & Plan narrative: 1. Acute alcohol withdrawal seizure and delirium tremens -continue seizure precautions. Remains confused today but much improved. -started on ativan infusion overnight HD #1 with minimal improvement. Improved with phenobarb dosing and now on phenobarb taper. -loaded with phenobarb, 130 mg q30min x2 doses. Then changed to 65 mg IV q8 hours, will change to oral today at 64mg q8. Tomorrow taper to 32 mg q8. -appreciate social work interventions in discharge planning. 2. Hyponatremia, hypovolemia -mildly low at 123, resolved very quickly with IV fluids. Monitor neuro status. IV fluids discontinued. 3. Hypothyroidism -continue cytomel, synthroid 4. EtOH cirrhosis with known varices -continue nadolol, hold any diuretics 5. Bipolar disorder -continue saphris 6. Depression -continue sertraline 7. Type 2 Diabetes -hold metformin -ordered for insulin sliding scale 8. Presume hypertension -resume lisinopril today. Code: Full, proxy is Vitor I have utilized all available resources to reconcile the patient's home medications. Dispo: remains inpatient. continue phenobarb taper. Working on discharge options with care management, medically ready probably in 1-2 days depending on confusi on. Time Spent With Patient Critical Care time: I spent a total of [] minutes of critical care time on this patient's care t danielito; this time is exclusive of procedural time.
[2021-08-17] MEDS: CYANOCOBALAMIN (VITAMIN B-12) 500 MCG TABLET 1000 MCG PO (11:06)
[2021-08-17] MEDS: LIOTHYRONINE 5 MCG TABLET PO ×2 (11:06→20:59)
[2021-08-17] MEDS: LEVOTHYROXINE 100 MCG TABLET 200 MCG PO (11:09)
[2021-08-17] MEDS: SERTRALINE 50 MG TABLET PO (11:09)
[2021-08-17] MEDS: PHENobarbitaL 32.4 MG TABLET 64.8 MG PO ×2 (11:09→18:17)
--- NOTE | 2021-08-17 12:02 | CM.DPNOTE ---
ESTIMATOR BINDING Note Cont Spoke w/both bf Thuan and patient together this morning; patient is awake but is repeating self often, does not retain information, and speaks in illogical sentences at times. Patient's memory is impaired, as is judgment. Patient admits she has had a very difficult time staying sober and has not been stable enough to make scheduled appointments at [facility] in [place]. Patient has not heard from Alecia at [facility]. Patient has been successful using [facility] transport once, another time they never called or showed up Patient admits she has not been drinking fluids or eating well, poor appetite d/t drinking; patient is waiting on her dentures to arrive (patient appears to not have many of her original teeth) and is on a soft diet, Thuan tries to prepare protein rich smoothies when he is able. Patient endorses great humiliation d/t lack of teeth and does not like to go out. Patient is not seeing a counselor and neither Thuan or patient can tell this ESTIMATOR BINDING who patient has a tele health visit with on Thursday, both state it is a psychiatrist (?) Per Thuan, Dr Leary, PCP, has been filling patient's Saphris Rx (Dx:Bipolar Disorder, Suspected Personality Disorder) up until recently, which was initially prescribed to patient during an inpatient psychiatric stay in [place]. patient now requires a new psychiatric assessment and med review before this medication or any other psychiatric med will be refilled. Thuan brings up...and patient agrees to increased sx of Bipolar Disorder; mood swings, hearing voices that aren't there and poor insight and judgment with sporadic thoughts of suicide, no specific plan. Re JASMIN- Patient agreeable to seeking help w/staying sober but wavers in her commitment this morning, hesitant to discuss inpatient stay. Patient completes all activities of daily living independently, has been considering getting a cane or crutches to assist her d/t poor activity tolerance (hx of hip replacements). May need PT eval to assess mobility needs (?) Educated both patient/bf about process to secure either outpatient vs inpatient resources, including variability in the availability of resources, both state understanding. It is the opinion of this ESTIMATOR BINDING that patient is a good candidate for detainment under [place]'s Law to an alcohol rehab unit if she were not to be agreeable to seeking help (and an attempt at) an inpatient unit (dual dx) however, patient often wavers in her agreement to seek help and her personality lends itself to agreeability on this topic.. making it difficult to assess voluntary vs involuntary status Upon medical clearance- Psych eval? Attempt inpatient dual dx if voluntary vs [facility] dispatch if involuntary ? vs ESTIMATOR BINDING assist w/attempting outpatient resources if patient agreeable and time permits BEATRICE Gutierres
[2021-08-17] MEDS: POTASSIUM CHLORIDE 20 MEQ TAB 40 MEQ PO (12:38)
[2021-08-17] MEDS: PRAVASTATIN 20 MG TABLET PO (20:59)
[2021-08-17] MEDS: hydrOXYzine pamoate 25 MG CAPSULE 50 MG PO (21:43)
[2021-08-18] VITALS (8 sets, daily range): BP systolic 124–157; BP diastolic 74–95; PULSE 70–77; RESP 17–22; TEMP 36.1–37.3; O2SAT 92–96; BMI 34.7
[2021-08-18] MEDS: PHENobarbitaL 32.4 MG TABLET 64.8 MG PO (02:35)
[2021-08-18 04:56] LABS: Add Manual Diff / Slide Review NO; Basophils Absolute Auto 100 /uL (0-100); Basophils Percent Auto 1.9 % (0-2); Eosinophils Absolute Auto 200 /uL (0-450); Eosinophils Percent Auto 3.9 % (2-4); Hematocrit 34.1 % (36-46); Hemoglobin 11.3 g/dL (12.0-16.0); Lymphocytes Absolute Auto 1900 /uL (1100-4500); Lymphocytes Percent Auto 38.5 % (25-40); Mean Corpuscular Hemoglobin 26.4 PG (26-34); Mean Corpuscular Volume 79.8 fL (80-100); Monocytes Absolute Auto 300 /uL (0-900); Monocytes Percent Auto 6.7 % (3-14); Neutrophils Absolute Auto 2400 /uL (1500-7000); Platelet Count 164 X10^3/uL (150-400); Red Blood Cell Count 4.28 X10^6/uL (4.0-5.2); Red Cell Distribution Width 15.6 % (11.6-14.8)
[2021-08-18 05:05] LABS: Alanine Aminotransferase 23 IU/L (<35); Albumin 3.8 g/dL (3.5-5.0); Albumin Globulin Ratio 1.3 (1.0-2.8); Alkaline Phosphatase 87 U/L (38-126); Aspartate Aminotransferase 32 IU/L (14-36); BUN Creatinine Ratio 8.6 (6-22); Bilirubin Total 0.5 mg/dL (0.2-1.3); Blood Urea Nitrogen 5 mg/dL (7-17); Calcium 8.5 mg/dL (8.4-10.2); Carbon Dioxide 27 mmol/L (22-32); Chloride 101 mmol/L (98-107); Estimated Glomerular Filt Rate > 60.0 mL/min (>60); Glucose 127 mg/dL (70-100); HEMOLYSIS < 15 (0-50); Magnesium 1.7 mg/dL (1.6-2.3); Sodium 133 mmol/L (137-145); Total Protein 6.8 g/dL (6.3-8.2)
[2021-08-18] MEDS: LEVOTHYROXINE 100 MCG TABLET 200 MCG PO (05:28)
[2021-08-18] MEDS: SODIUM CHLORIDE 0.9% FLUSH 10 ML IV ×2 (08:49→21:09)
[2021-08-18] MEDS: FOLIC ACID 1 MG TABLET PO (08:54)
[2021-08-18] MEDS: LIOTHYRONINE 5 MCG TABLET PO ×2 (08:54→21:01)
[2021-08-18] MEDS: CYANOCOBALAMIN (VITAMIN B-12) 500 MCG TABLET 1000 MCG PO (08:54)
[2021-08-18] MEDS: ASPIRIN EC 81 MG TABLET PO (08:54)
[2021-08-18] MEDS: THIAMINE 100 MG TABLET PO (08:54)
[2021-08-18] MEDS: MULTIVITAMIN 1 TABLET 1 TAB PO (08:54)
[2021-08-18] MEDS: SERTRALINE 50 MG TABLET PO (08:54)
[2021-08-18] MEDS: ENOXAPARIN 40 MG/0.4 ML SYRINGE SUBCUT (08:54)
[2021-08-18] MEDS: FUROSEMIDE 40 MG TABLET PO (08:54)
[2021-08-18] MEDS: MAGNESIUM CHLORIDE 64 MG TABLET 128 MG PO (08:55)
--- NOTE | 2021-08-18 11:13 | P.PN_ITS ---
Subjective Subjective Date Patient Seen: 08/18/21 Time Patient Seen: 11:13 Interval history: Much improved this AM. now much less confused. Denies abdominal pain, chest pain, nausea or vomiting. Still struggles with not recalling why she is in the hospital. Exam Vital Signs (past 8 hours): - 08/18/21 08:00 08/18/21 09:09 Temperature 98.2 F Pulse Rate 70 Respiratory Rate 20 Blood Pressure 139/83 Pulse Oximetry 94 93 Oxygen Delivery Method Room Air Oxygen Flow Rate 0 Narrative Exam Narrative: GEN: awake and alert female, no acute distress. HEENT: moist mucous membranes, PERRL NECK: trachea midline, no JVD CV: regular rate and rhythm, no murmurs PULM: clear bilaterally, no wheezes, rhonchi, rales ABD: soft, nontender, nondistended, no organomegaly EXT: warm and well perfused with no edema NEURO: awake, oriented x3 today. No obvious tremulousness and no-tongue fasciculations. PSYCH: calm, cooperative. Objective Labs Result Diagrams: 08/18/21 04:40 08/18/21 04:40 Labs: Laboratory Results - last 24 hr 08/18/21 08/18/21 04:40 04:40 WBC 5.0 RBC 4.28 Hgb 11.3 L Hct 34.1 L MCV 79.8 L MCH 26.4 MCHC 33.0 RDW 15.6 H Plt Count 164 Neut % (Auto) 49.0 L Lymph % (Auto) 38.5 [place] % (Auto) 6.7 Eos % (Auto) 3.9 Baso % (Auto) 1.9 Neut # (Auto) 2400 Lymph # (Auto) 1900 [place] # (Auto) 300 Eos # (Auto) 200 Baso # (Auto) 100 Sodium 133 L Potassium 4.0 Chloride 101 Carbon Dioxide 27 BUN 5 L Creatinine 0.58 Estimated GFR > 60.0 BUN/Creatinine Ratio 8.6 Glucose 127 H Calcium 8.5 Magnesium 1.7 Total Bilirubin 0.5 AST 32 ALT 23 Alkaline Phosphatase 87 Total Protein 6.8 Albumin 3.8 Globulin 3.0 Albumin/Globulin Ratio 1.3 PFSH Medical History Anxiety Avascular necrosis of bone of hip Bipolar disorder Chicken pox Chlamydia (~1988) Cirrhosis Colon polyp COPD (chronic obstructive pulmonary disease) Depression Esophageal varices Esophageal web Hayfever Hemorrhoids Hypothyroidism (1997) Irregular periods/menstrual cycles MRSA infection Pancytopenia Papillary adenocarcinoma of thyroid Seizures Shoulder pain Substance abuse Surgical History Anesthesia complication History of adenoidectomy History of bunionectomy History of dilation and curettage History of esophageal surgery (2016) History of left hip replacement (08/2017) History of placement of ear tubes History of right hip replacement (11/2017) History of tonsillectomy History of total thyroidectomy (1997) Family History Father No problems noted. Mother Depression Hyperlipidemia Thyroid disorder Mental health problem Brother No problems noted. Grandfather Lung cancer Cancer Grandmother Thyroid disorder Potassium disorder Hyperlipidemia Hypertension Grandfather No problems noted. Grandmother No problems noted. Family/Other No problems noted. Social History household members: significant other Smoking Status: Former smoker alcohol intake: current substance use type: does not use eating out: rarely or never Type(s) of exercise: none Assessment & Plan Assessment & Plan narrative: 1. Acute alcohol withdrawal seizure and delirium tremens -continue seizure precautions. Confusion and delirium much improved now. Minimal withdrawal symptoms today on phenobarb taper. -started on ativan infusion overnight HD #1 with minimal improvement. Improved with phenobarb dosing and now on phenobarb taper. -loaded with phenobarb, 130 mg q30min x2 doses. Then changed to 65 mg IV q8 hours, then at 64mg q8. today at 32 mg q8 and then will stop. -appreciate social work interventions in discharge planning. 2. Hyponatremia, hypovolemia -mildly low at 123, resolved very quickly with IV fluids. Monitor neuro status. IV fluids discontinued. 3. Hypothyroidism -continue cytomel, synthroid 4. EtOH cirrhosis with known varices -continue nadolol, hold any diuretics 5. Bipolar disorder -continue saphris 6. Depression -continue sertraline 7. Type 2 Diabetes -hold metformin -ordered for insulin sliding scale 8. Presume hypertension -resumed lisinopril. Code: Full, proxy is Vitor I have utilized all available resources to reconcile the patient's home medications. Dispo: remains inpatient. continue phenobarb taper. Working on discharge options with care management, medically ready probably in 1-2 days depending on confusion. Time Spent With Patient Critical Care time: I spent a total of [] minutes of critical care time on this patient's care today; this time is exclusive of procedural time.
[2021-08-18] MEDS: PHENobarbitaL 32.4 MG TABLET PO ×2 (11:25→18:30)
[2021-08-18] MEDS: INSULIN LISPRO 100 UNIT/ML 3ML VIAL SUBCUT (11:27)
--- NOTE | 2021-08-18 17:02 | CM.DANOTE ---
DCP/continued: Reviewed chart. Received request from RN that patient and significant other/Thuan requesting to see WELLNESS ASSISTANT. Patient known to this WELLNESS ASSISTANT from previous hospitalizations. Met with patient and Thuan explained role. Patient reports that she wants to go to inpt treatment if possible? Patient also open to IOP (Intensive Outpatient Program) if available? Patient has been seeing counselor at [facility] signed consent for WELLNESS ASSISTANT to speak with them re: close outpatient follow up and/or inpatient options. WELLNESS ASSISTANT will call on Thursday08-19-21. Patient also reports that she has video appointment tomorrow to get established with psychiatrist? WELLNESS ASSISTANT encouraged patient to keep appointment and she can do it during hospitalization. Placed call to [facility] in [place] ph# [phone] at time of call they did not have bed however, they report that they could get bed this evening or in AM. WELLNESS ASSISTANT requested a call if bed becomes available and will try them back in AM. P: Pending. Anticipate either home with close f/u and IOP in place vs. [facility] to complete detox. Patient agreeable to either. BEATRICE Hale
[2021-08-18] MEDS: PRAVASTATIN 20 MG TABLET PO (21:00)
[2021-08-19] VITALS: BP 147/73; PULSE 62; RESP 20; TEMP 36.4; O2SAT 95
[2021-08-19] MEDS: PHENobarbitaL 32.4 MG TABLET PO (03:13)
[2021-08-19 04:00] VITALS: BP 154/89; PULSE 59; RESP 19; TEMP 36.6; O2SAT 95
[2021-08-19 05:31] LABS: Add Manual Diff / Slide Review NO; Basophils Absolute Auto 100 /uL (0-100); Basophils Percent Auto 1.2 % (0-2); Eosinophils Absolute Auto 200 /uL (0-450); Eosinophils Percent Auto 4.3 % (2-4); Hematocrit 36.8 % (36-46); Hemoglobin 12.1 g/dL (12.0-16.0); Lymphocytes Absolute Auto 2000 /uL (1100-4500); Lymphocytes Percent Auto 35.3 % (25-40); Mean Corpuscular HGB Conc 32.9 % (30-36); Mean Corpuscular Hemoglobin 26.1 PG (26-34); Mean Corpuscular Volume 79.4 fL (80-100); Monocytes Absolute Auto 500 /uL (0-900); Monocytes Percent Auto 8.3 % (3-14); Neutrophils Absolute Auto 2800 /uL (1500-7000); Neutrophils Percent Auto 50.9 % (50-75); Platelet Count 183 X10^3/uL (150-400); Red Blood Cell Count 4.63 X10^6/uL (4.0-5.2); Red Cell Distribution Width 15.8 % (11.6-14.8); White Blood Cell Count 5.6 X10^3/uL (4.5-11.0)
[2021-08-19 05:45] LABS: Alanine Aminotransferase 29 IU/L (<35); Albumin 4.5 g/dL (3.5-5.0); Albumin Globulin Ratio 1.2 (1.0-2.8); Alkaline Phosphatase 113 U/L (38-126); Aspartate Aminotransferase 35 IU/L (14-36); BUN Creatinine Ratio 5.9 (6-22); Bilirubin Total 0.5 mg/dL (0.2-1.3); Blood Urea Nitrogen 3 mg/dL (7-17); Calcium 9.1 mg/dL (8.4-10.2); Carbon Dioxide 28 mmol/L (22-32); Chloride 99 mmol/L (98-107); Estimated Glomerular Filt Rate > 60.0 mL/min (>60); Globulin 3.7 g/dL (1.7-4.1); Glucose 144 mg/dL (70-100); HEMOLYSIS < 15 (0-50); Magnesium 1.7 mg/dL (1.6-2.3); Potassium 3.3 mmol/L (3.4-5.1); Sodium 137 mmol/L (137-145); Total Protein 8.2 g/dL (6.3-8.2)
[2021-08-19] MEDS: LEVOTHYROXINE 100 MCG TABLET 200 MCG PO (06:12)
[2021-08-19 08:00] VITALS: BP 138/88; PULSE 61; RESP 20; TEMP 36.7; O2SAT 94
[2021-08-19] MEDS: LIOTHYRONINE 5 MCG TABLET PO (09:14)
[2021-08-19] MEDS: ASPIRIN EC 81 MG TABLET PO (09:14)
[2021-08-19] MEDS: THIAMINE 100 MG TABLET PO (09:15)
[2021-08-19] MEDS: FOLIC ACID 1 MG TABLET PO (09:15)
[2021-08-19] MEDS: FUROSEMIDE 40 MG TABLET PO (09:15)
[2021-08-19] MEDS: MULTIVITAMIN 1 TABLET 1 TAB PO (09:15)
[2021-08-19] MEDS: ENOXAPARIN 40 MG/0.4 ML SYRINGE SUBCUT (09:15)
[2021-08-19] MEDS: SERTRALINE 50 MG TABLET PO (09:15)
[2021-08-19] MEDS: POTASSIUM CHLORIDE 20 MEQ TAB 40 MEQ PO (09:17)
[2021-08-19] MEDS: SODIUM CHLORIDE 0.9% FLUSH 10 ML IV (09:18)
[2021-08-19] MEDS: CYANOCOBALAMIN (VITAMIN B-12) 500 MCG TABLET 1000 MCG PO (09:25)
[2021-08-19 09:43] VITALS: O2SAT 92
[2021-08-19] MEDS: IBUPROFEN 400 MG TABLET 800 MG PO (11:22)
[2021-08-19] MEDS: INSULIN LISPRO 100 UNIT/ML 3ML VIAL SUBCUT (11:33)
[2021-08-19 11:49] VITALS: BP 147/74; PULSE 76; RESP 18; TEMP 36.8; O2SAT 95
[2021-08-19] MEDS: hydrOXYzine pamoate 25 MG CAPSULE 50 MG PO (12:35)
--- NOTE | 2021-08-19 14:58 | PM.DS.1 ---
History of Present Illness History of Present Illness Date Patient Seen: 08/19/21 Time Patient Seen: 14:00 Chief complaint: Seizure Narrative: Per Dr. Garcia, Ms. Burch is a 51W with H alcohol abuse, cirrhosis, well known to the service for repeated admissions for intoxication and withdrawal who presents after a witnessed seizure. She has had seizures previously due to withdrawal. She has been referred to rehab previous visits and has not been. She stopped drinking alcohol over 24 hours ago and had a seizure this morning. She was noted to have tonic clonic movements by partner at bedside. She is not taking her home medications. She felt clammy, nausea. In the ED workup was done, vitals notable for mild hypertension. Labs notable for WBC 8.3, hgb 12.8, plts 354. Na 123, creatinine 0.61. INR 1.2. Mag 1.5. Bili 1.4. Prolaction 166. EtOH negative. CT head shows no acute process. She was ordered for ativan and admitted for further treatment. Discharge Providers Provider Date of admission: 08/15/21 09:17 Discharge Date: 08/19/21 Primary care physician: Miguel Ángel Leary MD Consults: 08/15/21 13:39 Consult to Mac Operator Routine Comment: 08/16/21 05:15 Consult to Tele-drapery hanger Routine Comment: Consulting Provider: Thomas Tele-intensivists Reason for consultation: Credit Administrator services 08/16/21 15:10 Consult to Dietitian, Adult Routine Comment: Reason For Exam: protocol Discharge provider: Raj Kitchen DO Summary Hospital Course Discharge Diagnosis: 1. Acute alcohol withdrawal seizure and delirium tremens 2. Hyponatremia, hypovolemia 3. Hypothyroidism 4. EtOH cirrhosis with known varices 5. Bipolar disorder 6. Depression 7. Type 2 Diabetes 8. hypertension Hospital Course: This is a 51-year-old female with prior history alcohol withdrawal, alcoholic cirrhosis, bipolar disorder and depression, type 2 diabetes, and hypertension who was admitted after an alcohol withdrawal seizure. She was also noted to be hyponatremic which improved very quickly with IV fluids. On the Night of hospital day 1 the patient developed DTs and was moved to the ICU with initiation of an Ativan infusion which did not help much with her symptoms. She was then started on phenobarbital with marked improvement. She was continued on a phenobarbital taper over the course of 3 days. She completed a taper and had no further symptoms of alcohol withdrawal in improvement in her delirium. Social work attempted inpatient alcohol rehab but there were no available opportunities at this time. She was set up with multiple resources as an outpatient. The patient had been running out of her anti psychotic at home which was represcribed, though I do recommend that she follow-up with behavioral health as soon as possible for further management. Time Spent with Patient Time spent: Greater than 30 minutes Exam Vital Signs (past 8 hours): - 08/19/21 08:00 08/19/21 09:43 08/19/21 11:49 Temperature 98.1 F 98.3 F Pulse Rate 61 76 Respiratory Rate 20 18 Blood Pressure 138/88 147/74 H Pulse Oximetry 94 92 95 Oxygen Delivery Method Room Air Oxygen Flow Rate 0 Narrative Exam Narrative: GEN: awake and alert female, no acute distress. HEENT: moist mucous membranes, PERRL NECK: trachea midline, no JVD CV: regular rate and rhythm, no murmurs PULM: clear bilaterally, no wheezes, rhonchi, rales ABD: soft, nontender, nondistended, no organomegaly EXT: warm and well perfused with no edema NEURO: awake, oriented x3 today. No obvious tremulousness and no-tongue fasciculations. PSYCH: calm, cooperative. Objective Labs Result Diagrams: 08/19/21 05:15 08/19/21 05:15 Labs: Laboratory Results - last 24 hr 08/19/21 08/19/21 05:15 05:15 WBC 5.6 RBC 4.63 Hgb 12.1 Hct 36.8 MCV 79.4 L MCH 26.1 MCHC 32.9 RDW 15.8 H Plt Count 183 Neut % (Auto) 50.9 Lymph % (Auto) 35.3 [place] % (Auto) 8.3 Eos % (Auto) 4.3 H Baso % (Auto) 1.2 Neut # (Auto) 2800 Lymph # (Auto) 2000 [place] # (Auto) 500 Eos # (Auto) 200 Baso # (Auto) 100 Sodium 137 Potassium 3.3 L Chloride 99 Carbon Dioxide 28 BUN 3 L Creatinine 0.51 L Estimated GFR > 60.0 BUN/Creatinine Ratio 5.9 L Glucose 144 H Calcium 9.1 Magnesium 1.7 Total Bilirubin 0.5 AST 35 ALT 29 Alkaline Phosphatase 113 Total Protein 8.2 Albumin 4.5 Globulin 3.7 Albumin/Globulin Ratio 1.2 [facility] Medical History Anxiety Avascular necrosis of bone of hip Bipolar disorder Chicken pox Chlamydia (~1988) Cirrhosis Colon polyp COPD (chronic obstructive pulmonary disease) Depression Esophageal varices Esophageal web Hayfever Hemorrhoids Hypothyroidism (1997) Irregular periods/menstrual cycles MRSA infection Pancytopenia Papillary adenocarcinoma of thyroid Seizures Shoulder pain Substance abuse Surgical History Anesthesia complication History of adenoidectomy History of bunionectomy History of dilation and curettage History of esophageal surgery (2016) History of left hip replacement (08/2017) History of placement of ear tubes History of right hip replacement (11/2017) History of tonsillectomy History of total thyroidectomy (1997) Family History Father No problems noted. Mother Depression Hyperlipidemia Thyroid disorder Mental health problem Brother No problems noted. Grandfather Lung cancer Cancer Grandmother Thyroid disorder Potassium disorder Hyperlipidemia Hypertension Grandfather No problems noted. Grandmother No problems noted. Family/Other No problems noted. Social History household members: significant other Smoking Status: Former smoker alcohol intake: current substance use type: does not use eating out: rarely or never Type(s) of exercise: none Discharge Plan Discharge Plan Patient Disposition: Home Provider Discharge Comment: You were admitted to the hospital with alcohol withdrawal. You then developed confusion which improved with medication taper. Please follow up with outside resources for cessation. Discharge orders & Medications Prescriptions: Continued aspirin [Adult Low Dose Aspirin] 81 mg tablet,delayed release (DR/EC) 81 mg PO DAILY 0RF (DME) blood-glucose meter [True Metrix Glucose Meter] Mis See Rx Instructions .ROUTE .MEDSUPPLY Qty: 1 0RF Rx Instructions: use to chekc blood sugar 4 times a day (DME) True Metrix Glucose Test Strip Strip See Rx Instructions .ROUTE .MEDSUPPLY Qty: 400 3RF Rx Instructions: use to check blood sugar 4 times a day (DME) lancets Misc See Rx Instructions .ROUTE .MEDSUPPLY Qty: 400 3RF Rx Instructions: use to check blood sugar 4 times a day, brand per ins. levothyroxine 200 mcg tablet 200 mcg PO DAILY Qty: 90 3RF pravastatin 20 mg tablet 20 mg PO BEDTIME Qty: 90 3RF nadolol 40 mg tablet 40 mg PO DAILY Qty: 90 2RF sertraline 50 mg tablet 50 mg PO DAILY Qty: 90 1RF furosemide 40 mg tablet 40 mg PO DAILY Qty: 30 5RF hydroxyzine HCl 50 mg tablet 50 mg PO TID PRN (Reason: anxiety) Qty: 90 11RF metformin 1,000 mg tablet extended release 24hr 1,000 mg PO BID Qty: 60 0RF multivitamin with folic acid [Tab-A-Feroz] 400 mcg Tablet 1 tab PO DAILY Qty: 30 0RF cyanocobalamin (vitamin B-12) [Vitamin B-12] 1,000 mcg Tablet 1,000 mcg PO DAILY 0RF milk thistle 150 mg Capsule 300 mg PO DAILY 0RF Rx Instructions: give with meal/snack liothyronine 5 mcg tablet 5 mcg PO BID 0RF omeprazole 20 mg capsule,delayed release(DR/EC) 20 mg PO DAILY 0RF asenapine maleate [Saphris] 5 mg tablet, sublingual 10 mg sublingual BEDTIME 30 Days Qty: 60 0RF Rx Instructions: 30 DAYS ONLY OK. PATIENT NEEDS TO FIND BEHAVIORAL HEALTH DOC FOR CONT'D FILLS. Discontinued naltrexone 50 mg tablet 50 mg PO DAILY Qty: 30 0RF Label Comments: has not been taking Follow up/Referrals: Miguel Ángel Leary MD [Primary Care Provider] - Diet/Activity/Treatments Diet: Diet as Tolerated Activity: As tolerated Discharge Data Primary Care Provider: Miguel Ángel Leary
--- NOTE | 2021-08-19 15:51 | PC.NURSE ---
Day Shift Note Alert and oriented to self and place, able to state date after reorientation. Following commands and expressing interest in treatment for ETOH. Able to verbalize that she has been drinking too much at home and has not been taking bipolar meds consistently. SBA with FWW to bathroom. vss, ra. Ibuprofen administered for pt report of back pain, reports effective. CIWA 0-2. Call light within reach, using appropriately to make needs known. Bed alarm on for safety. SO Thuan at bedside and involved with plan of care.
--- NOTE | 2021-08-19 16:04 | CM.DPC ---
DCP/continued: Reviewed chart. Spoke with provider this AM. He reports that patient is medically stable for discharge. Patient also has been detoxed from ETOH. Met with parent and significant other/Thuan re: plan. Now that paient is detoxed from alcohol, she no longer needs detox. PATENT AGENT placed call to [facility] and they report that they can only accept nonvoluntary patient's at this time. In addition to the above placed call to patient's counselor at [facility] (Bradley ph# [phone]) after leaving several messages finally reached Bradley. Consent to discuss medical care with Bradley obtained from patient. Bradley reports that patient is enrolled in program but recently has not been showing up. PATENT AGENT discussed with Bradley the importance of either intensive outpatient program or inpatient services. Bradley open to discuss all available resources with her at next appointment which was made for Thursday08-26-21 at 3:00pm. Bradley also invited patient to group at [facility] on 08-23 at 1:00pm. In addition, PATENT AGENT called crisis line for follow up phone call after discharge. Safety call arranged for this evening through [facility]. Both patient and Thuan aware and agreeable to above plans. Encouraged patient to get to her appointments. Thuan reports that the can taker her this week. Patient aware that she does have Medicaid transport benefit if needed. Patient and Thuan report that you cannot rely on them. Dr. Kitchen updated. Patient discharging tonight. Community resources provided for patient with appointment times. Patient aware that she will need to ultimately decide if she is done drinking. Patient reports that she is. P: Home today with outpatient appointments at [facility], safety call, and community resources proveded. RAMIRO
== END 2021-08-19 17:00 | disposition home or self-care (01) | DRG 775 ==
LOC: ED 08:29 → AC 09:17 → ICU 08-16 10:27 → AC 08-19 08:11
PROVIDERS: Internal Medicine; Admitting Provider Internal Medicine; Emergency Provider Emergency Medicine; PCP Student in an Organized Health Care Education/Training Program; Referring Provider Emergency Medicine; Visit Provider Internal Medicine
DX: F10.239 Alcohol dependence with withdrawal, unspecified (principal); K70.30 Alcoholic cirrhosis of liver without ascites; F10.221 Alcohol dependence with intoxication delirium; R56.9 Unspecified convulsions; I85.10 Secondary esophageal varices without bleeding; E87.1 Hypo-osmolality and hyponatremia; E86.1 Hypovolemia; E03.9 Hypothyroidism, unspecified; F31.9 Bipolar disorder, unspecified; I10 Essential (primary) hypertension; E78.5 Hyperlipidemia, unspecified; E11.9 Type 2 diabetes mellitus without complications; Y90.0 Blood alcohol level of less than 20 mg/100 ml; Z87.891 Personal history of nicotine dependence; Z79.84 Long term (current) use of oral hypoglycemic drugs; Z20.822 Contact with and (suspected) exposure to COVID-19; G43.B0 Ophthalmoplegic migraine, not intractable
CPT/HCPCS: 36415; 70450; 70486; 80048; 80053; 80305; 80320; 81003; 81015; 82962; 83690; 83735; 84100; 84132; 84146; 85025; 85610; 85730; 87086; 87635; 87797; 93005; 93010; 94760; 94762; 96361; 96365; 96366; 96374; 96375; 99284; C9803; J1200; J1650; J1815; J1885; J2060; J2405; J2560; J2765; J3475

== ENCOUNTER 2021-08-29 13:51 | Emergency (ER) | payer OTHER, MEDICAID, SELFPAY ==
[2021-08-18 11:59] VITALS: BMI 34.7
[2021-08-29 14:08] VITALS: BP 145/75; PULSE 63; RESP 20; TEMP 36.4; O2SAT 97; BMI 33.5
--- NOTE | 2021-08-29 19:30 | PC.NURSE ---
pt c/o pain mid back between the shoulder blades has been seen before for the same pain with no relief no neuro sensory deficits
--- NOTE | 2021-08-29 19:46 | DI.RAD.S_ITS ---
PROCEDURE: XR THORACIC SPINE 3V INDICATIONS: upper midline T spine pain after fall TECHNIQUE: 3 views of the thoracic spine were acquired. COMPARISON: None. FINDINGS: Bones: No fractures or dislocations. No suspicious bony lesions. 12 pairs of ribs are noted, and appear intact where visualized. Left 12th rib is this diminutive. Soft tissues: No paravertebral stripe thickening. IMPRESSION: Mild compression fracture at T8. Dictated by: Hipolito Loya M.D. on 08/29/2021 at 20:47 Approved by: Hipolito Loya M.D. on 08/29/2021 at 20:49
--- NOTE | 2021-08-29 19:46 | ED_ITS ---
HPI - Back Pain/Injury General Chief Complaint: Back Pain/Injury Stated Complaint: severe back pain seven days Time Seen by Provider: 08/29/21 19:36 Source: patient and family Mode of arrival: Ambulatory History of Present Illness HPI Narrative: Patient is a 51-year-old female. Recently was admitted to this facility for alcohol withdrawal issues. She states that she has been sober since being discharged from the hospital. She has been out the hospital for approximately 2 weeks. The day prior to being discharged she started to have pain in her upper back between her shoulder blades. It is worse with palpation. Is worse with movement. To the discomfort causes her to have problems breathing. She has no chest pain. It has been constant for the past 2 weeks. No skin rashes over the area. She did fall a couple times prior to her last admission in the hospital when she was under the influence of alcohol although she is not sure if she has ever hurt her back. Related Data Home Medications Medication Instructions Recorded Confirmed aspirin 81 mg tablet,delayed 81 mg PO DAILY 12/17/19 08/17/21 release (Adult Low Dose Aspirin) cyanocobalamin (vitamin B-12) 1,000 mcg PO DAILY 08/17/21 08/17/21 1,000 mcg tablet (Vitamin B-12) liothyronine 5 mcg tablet 5 mcg PO BID 08/17/21 08/17/21 milk thistle 150 mg capsule 300 mg PO DAILY 08/17/21 08/17/21 omeprazole 20 mg capsule,delayed 20 mg PO DAILY 08/17/21 08/17/21 release Previous Rx's Medication Instructions Recorded blood sugar diagnostic (True #400 each 03/07/20 Metrix Glucose Test Strip) blood-glucose meter (True Metrix #1 each 03/07/20 Glucose Meter) lancets #400 each 03/07/20 levothyroxine 200 mcg tablet 200 mcg PO DAILY #90 tab 12/10/20 pravastatin 20 mg tablet 20 mg PO BEDTIME #90 tab 03/01/21 nadolol 40 mg tablet 40 mg PO DAILY #90 tab 04/26/21 sertraline 50 mg tablet 50 mg PO DAILY #90 tab 05/13/21 multivitamin with folic acid 400 1 tab PO DAILY #30 tab 06/05/21 mcg tablet (Tab-A-Feroz) furosemide 40 mg tablet 40 mg PO DAILY #30 tab 06/18/21 hydroxyzine HCl 50 mg tablet 50 mg PO TID PRN #90 tab 06/18/21 metformin 1,000 mg tablet,extended 1,000 mg PO BID #60 tab 06/18/21 release 24hr asenapine maleate 5 mg sublingual 10 mg SUBLINGUAL BEDTIME 30 Days 08/19/21 tablet (Saphris) #60 tab lidocaine 5 % topical patch 1 patch TOPICAL DAILY #1 ea 08/29/21 Allergies Allergy/AdvReac Type Severity Reaction Status Date / Time Penicillins [PENICILLINS] Allergy Severe Swelling Verified 06/22/21 13:15 of Lip/Tongue/Throat shellfish derived Allergy Intermediate Rash Verified 06/18/21 14:38 Sulfa (Sulfonamide Allergy Intermediate Rash Verified 06/18/21 14:18 Antibiotics) [SULFA (SULFONAMIDE ANTIBIOTICS)] sulfamethoxazole Allergy Intermediate Rash Verified 06/18/21 14:18 [From Bactrim] trimethoprim [From Bactrim] Allergy Intermediate Rash Verified 06/18/21 14:18 Review of Systems Constitutional Constitutional: Reports system reviewed and no additional complaints, except as documented Cardiovascular Cardiovascular: Reports as per HPI and Reports system reviewed and no additional complaints, except as documented Respiratory Respiratory: Reports as per HPI and Reports system reviewed and no additional complaints, except as documented Gastrointestinal Gastrointestinal: Reports system reviewed and no additional complaints, except as documented Musculoskeletal Musculoskeletal: Reports system reviewed and no additional complaints, except as documented and Reports as per HPI Integumentary/Breasts Skin/Breast: Reports system reviewed and no additional complaints, except as documented Neurologic Neurologic: Reports system reviewed and no additional complaints, except as documented Hematologic/Lymphatic On Anticoagulants: No Patient History Medical History Anxiety Avascular necrosis of bone of hip Bipolar disorder Chicken pox Chlamydia (~1988) Cirrhosis Colon polyp COPD (chronic obstructive pulmonary disease) Depression Esophageal varices Esophageal web Hayfever Hemorrhoids Hypothyroidism (1997) Irregular periods/menstrual cycles MRSA infection Pancytopenia Papillary adenocarcinoma of thyroid Seizures Shoulder pain Substance abuse Surgical History Anesthesia complication History of adenoidectomy History of bunionectomy History of dilation and curettage History of esophageal surgery (2016) History of left hip replacement (08/2017) History of placement of ear tubes History of right hip replacement (11/2017) History of tonsillectomy History of total thyroidectomy (1997) Family History Father No problems noted. Mother Depression Hyperlipidemia Thyroid disorder Mental health problem Brother No problems noted. Grandfather Lung cancer Cancer Grandmother Thyroid disorder Potassium disorder Hyperlipidemia Hypertension Grandfather No problems noted. Grandmother No problems noted. Family/Other No problems noted. Social History household members: significant other Smoking Status: Former smoker alcohol intake: current substance use type: does not use eating out: rarely or never Type(s) of exercise: none Smoking Status: Former smoker alcohol intake frequency: other Alcohol type: hard liquor Substance Use Type: marijuana Exam Initial Vital Signs Initial Vital Signs: Vital Signs Temperature 97.5 F L 08/29/21 14:08 Pulse Rate 63 08/29/21 14:08 Respiratory Rate 20 08/29/21 14:08 Blood Pressure 145/75 H 08/29/21 14:08 Pulse Oximetry 97 08/29/21 14:08 HENMT Head: normal to inspection and normocephalic Resp Effort & Inspection: normal respiratory effort Auscultation: clear to auscultation bilaterally Cardio Rate: regular rate Rhythm: regular rhythm Back/Spine/Pelvis Cervical Spine: No cervical spinal tenderness Thoracic/Lumbar Spine: No paraspinal tenderness, thoracic spinal tenderness (Upper thoracic) and No lumbar spinal tenderness Skin General: no rashes or lesions noted Extrem General: normal to inspection and capillary refill normal Course Orders Ordered: ED Orders 08/29/21 19:46 XR thoracic spine 3V Stat Vital Signs Vital signs: Vital Signs - 8 hr 08/29/21 14:08 Temperature 97.5 F L Pulse Rate 63 Respiratory Rate 20 Blood Pressure 145/75 H Pulse Oximetry 97 MDM - Back Pain/Injury Imaging Data Thoracic spine x-ray: Radiologist's Impression: [address] [address] XRay Report Signed Patient: Yin Burch MR#: [id number] : 1970 Acct:[id number] Age/Sex: 51 / F Date of Service: 08/29/21 Loc: ED Accession Number: [id number] ?? Procedure: XR thoracic spine 3V Ordering Provider: Vitor Scott D.O. PROCEDURE:? XR THORACIC SPINE 3V ? INDICATIONS:? upper midline T spine pain after fall ? TECHNIQUE:? 3 views of the thoracic spine were acquired.? ? COMPARISON:? None. ? FINDINGS:? ? Bones:? No fractures or dislocations.? No suspicious bony lesions.? 12 pairs of ribs are noted, and appear intact where visualized.? Left 12th rib is this diminutive.? ? Soft tissues:? No paravertebral stripe thickening.? ? ? IMPRESSION:? Mild compression fracture at T8. ? ? Dictated by: Hipolito Loya M.D. on 08/29/2021 at 20:47 ? ? Approved by: Hipolito Loay M.D. on 08/29/2021 at 20:49?? MDM Narrative Medical decision making narrative: Patient has reproducible pain that is in her upper thoracic region midline and just to the right paraspinal region. I can reproduce the pain with palpation. I feel that pulmonary embolism/ACS/dissection is unlikely given this presentation. She is no skin rashes over the area that make me concerned for zoster. She did have several falls prior to her last admission the hospital when she was intoxicated so she does not know the exact nature the falls. Thoracic spine x-ray shows a compression fracture of T8 however she is not tender over this area of her thoracic spine. I do not feel that this is the cause of this discomfort. She was informed of this finding. I do suspect that this is musculoskeletal in origin. No indication for CT scanning. Will continue with conservative measures to include heat an ice and massage. Full sent home with a prescription for lidocaine patches. She was given return precautions. She expressed understanding and agreement. Discharge Plan Departure Patient Disposition: Home Clinical Impression: Back pain, thoracic Instructions: DI for Muscle Strain Activity Restrictions/Additional Instructions: I do recommend that you continue with the conservative measures to include heat/ice/anti-inflammatories and massage. Keep all of your upcoming scheduled medical appointments. Return to the emergency department for any new or worsening symptoms. Prescriptions: New lidocaine 5 % adhesive patch,medicated 1 patch topical DAILY Qty: 1 0RF Rx Instructions: leave on most painful area for up to 12 hrs No Action aspirin [Adult Low Dose Aspirin] 81 mg tablet,delayed release (DR/EC) 81 mg PO DAILY 0RF (DME) blood-glucose meter [True Metrix Glucose Meter] Misc See Rx Instructions .ROUTE .MEDSUPPLY Qty: 1 0RF Rx Instructions: use to chekc blood sugar 4 times a day (DME) True Metrix Glucose Test Strip Strip See Rx Instructions .ROUTE .MEDSUPPLY Qty: 400 3RF Rx Instructions: use to check blood sugar 4 times a day (DME) lancets Misc See Rx Instructions .ROUTE .MEDSUPPLY Qty: 400 3RF Rx Instructions: use to check blood sugar 4 times a day, brand per ins. levothyroxine 200 mcg tablet 200 mcg PO DAILY Qty: 90 3RF pravastatin 20 mg tablet 20 mg PO BEDTIME Qty: 90 3RF nadolol 40 mg tablet 40 mg PO DAILY Qty: 90 2RF sertraline 50 mg tablet 50 mg PO DAILY Qty: 90 1RF furosemide 40 mg tablet 40 mg PO DAILY Qty: 30 5RF hydroxyzine HCl 50 mg tablet 50 mg PO TID PRN (Reason: anxiety) Qty: 90 11RF metformin 1,000 mg tablet extended release 24hr 1,000 mg PO BID Qty: 60 0RF multivitamin with folic acid [Tab-A-Feroz] 400 mcg Tablet 1 tab PO DAILY Qty: 30 0RF cyanocobalamin (vitamin B-12) [Vitamin B-12] 1,000 mcg Tablet 1,000 mcg PO DAILY 0RF milk thistle 150 mg Capsule 300 mg PO DAILY 0RF Rx Instructions: give with meal/snack liothyronine 5 mcg tablet 5 mcg PO BID 0RF omeprazole 20 mg capsule,delayed release(DR/EC) 20 mg PO DAILY 0RF asenapine maleate [Saphris] 5 mg tablet, sublingual 10 mg sublingual BEDTIME 30 Days Qty: 60 0RF Rx Instructions: 30 DAYS ONLY OK. PATIENT NEEDS TO FIND BEHAVIORAL HEALTH DOC FOR CONT'D FILLS. Referrals: Miguel Ángel Leary MD [Primary Care Provider] -
== END 2021-08-29 21:35 | disposition home or self-care (01) ==
PROVIDERS: Emergency Provider Emergency Medicine; PCP Student in an Organized Health Care Education/Training Program
DX: M54.6 Pain in thoracic spine (principal); Z87.891 Personal history of nicotine dependence
CPT/HCPCS: 72072; 99281; 99283

== ENCOUNTER → 2021-09-26 11:03 | Outpatient (CLI) | payer OTHER, MEDICAID, SELFPAY ==
[2021-08-18 11:59] VITALS: BMI 34.7
[2021-09-26 12:14] LABS: Hematocrit 38.5 % (36-46); Hemoglobin 13.1 g/dL (12.0-16.0); Mean Corpuscular Hemoglobin 26.5 PG (26-34); Mean Corpuscular Volume 78.1 fL (80-100); Platelet Count 251 X10^3/uL (150-400); Red Blood Cell Count 4.93 X10^6/uL (4.0-5.2); White Blood Cell Count 6.2 X10^3/uL (4.5-11.0)
[2021-09-26 12:18] LABS: INR 1.1 (0.9-1.3); Prothrombin Time 12.4 SECONDS (10.1-12.7)
[2021-09-26 12:27] LABS: Blood Urea Nitrogen 12 mg/dL (7-17); Calcium 9.9 mg/dL (8.4-10.2); Carbon Dioxide 28 mmol/L (22-32); Chloride 101 mmol/L (98-107); Estimated Glomerular Filt Rate > 60 mL/min (>60); Glucose 150 mg/dL (70-100); HEMOLYSIS < 15 (0-50); Potassium 4.4 mmol/L (3.4-5.1); Sodium 139 mmol/L (137-145)
[2021-09-26 12:34] LABS: Prealbumin 21.5 mg/dL (17.6-36.0)
[2021-09-27 06:19] LABS: Fructosamine 240 umol/L (0-285)
== END ==
PROVIDERS: PCP Student in an Organized Health Care Education/Training Program; Referring Provider Student in an Organized Health Care Education/Training Program; Visit Provider Student in an Organized Health Care Education/Training Program
DX: F10.21 Alcohol dependence, in remission (principal); I10 Essential (primary) hypertension; K70.30 Alcoholic cirrhosis of liver without ascites; Z01.810 Encounter for preprocedural cardiovascular examination; D50.9 Iron deficiency anemia, unspecified; E11.9 Type 2 diabetes mellitus without complications
CPT/HCPCS: 36415; 80048; 82985; 84134; 85027; 85610

== ENCOUNTER → 2021-10-28 11:09 | Outpatient (CLI) | payer OTHER, MEDICAID, SELFPAY ==
[2021-08-18 11:59] VITALS: BMI 34.7
--- NOTE | 2021-10-28 11:10 | DI.MG.S_ITS ---
BILATERAL DIGITAL SCREENING MAMMOGRAM 3D/2D WITH CAD: 10/28/2021 CLINICAL: Routine screening. Family history of breast cancer. Comparison is made to exams dated: 06/22/2020 mammogram and 10/15/2018 mammogram - [facility]. The tissue of both breasts is heterogeneously dense. This may lower the sensitivity of mammography. Current study was also evaluated with a Computer Aided Detection (CAD) system. There are benign vascular calcifications in both breasts. No significant masses, calcifications, or other findings are seen in either breast. There has been no significant interval change. IMPRESSION: BENIGN There is no mammographic evidence of malignancy. A 1 year screening mammogram is recommended. This exam was interpreted at Station ID: [id number]. NOTE: For mammograms, a report in lay terms will be sent to the patient. Approximately 15% of breast malignancies will not be visualized mammographically. In the management of a palpable breast mass, a negative mammogram must not discourage biopsy of a clinically suspicious lesion. Electronically Signed By: Hira forde/osmani:10/28/2021 17:50:08 letter sent: Normal Exam ACR BI-RADS Category 2: Benign Finding(s) 3342F
== END ==
PROVIDERS: PCP Student in an Organized Health Care Education/Training Program; Referring Provider Student in an Organized Health Care Education/Training Program; Visit Provider Student in an Organized Health Care Education/Training Program
DX: Z12.31 Encounter for screening mammogram for malignant neoplasm of breast (principal); Z80.3 Family history of malignant neoplasm of breast
CPT/HCPCS: 77063; 77067

== ENCOUNTER 2021-11-27 23:02 | Emergency (ER) | payer OTHER, MEDICAID, SELFPAY ==
[2021-08-18 11:59] VITALS: BMI 34.7
[2021-11-27 23:08] VITALS: BP 174/90; PULSE 75; RESP 18; TEMP 36.1; O2SAT 96; BMI 32.3
--- NOTE | 2021-11-28 01:05 | ED_ITS ---
HPI - Back Pain/Injury General Chief Complaint: Back Pain/Injury Stated Complaint: back pain Time Seen by Provider: 11/27/21 23:50 History of Present Illness HPI Narrative: 51-year-old female former smoker with extensive alcohol history and cirrhosis presents with her in the chief complaint of a ground level fall suffered due to her being a bit unstable and stumbling earlier tonight. She has some midline thoracic back pain that is worse with motion and improves with rest. S he denies any head injury, neck injury nor numbness, tingling or weakness. She has no chest pain or shortness of breath. She is had no vomiting or diarrhea. Related Data Home Medications Medication Instructions Recorded Confirmed aspirin 81 mg tablet,delayed 81 mg PO DAILY 12/17/19 09/10/21 release (Adult Low Dose Aspirin) liothyronine 5 mcg tablet 5 mcg PO BID 08/17/21 09/10/21 milk thistle 150 mg capsule 300 mg PO DAILY 08/17/21 09/10/21 Previous Rx's Medication Instructions Recorded blood sugar diagnostic (True #400 ea 03/07/20 Metrix Glucose Test Strip) blood-glucose meter (True Metrix #1 ea 03/07/20 Glucose Meter) lancets #400 ea 03/07/20 levothyroxine 200 mcg tablet 200 mcg PO DAILY #90 tabs 12/10/20 pravastatin 20 mg tablet 20 mg PO BEDTIME #90 tabs 03/01/21 nadolol 40 mg tablet 40 mg PO DAILY #90 tabs 04/26/21 sertraline 50 mg tablet 50 mg PO DAILY #90 tabs 05/13/21 multivitamin with folic acid 400 1 tab PO DAILY #30 tabs 06/05/21 mcg tablet (Tab-A-Feroz) furosemide 40 mg tablet 40 mg PO DAILY #30 tabs 06/18/21 hydroxyzine HCl 50 mg tablet 50 mg PO TID PRN anxiety #90 tabs 06/18/21 lidocaine 5 % topical patch 1 patch topical DAILY #1 ea 08/29/21 metformin 1,000 mg tablet,extended 1,000 mg PO BID #60 tabs 09/02/21 release 24hr acamprosate 333 mg tablet,delayed 666 mg PO TID #180 tabs 09/10/21 release asenapine maleate 5 mg sublingual 10 mg sublingual BEDTIME 30 days 09/10/21 tablet (Saphris) #60 tabs omeprazole 20 mg capsule,delayed 20 mg PO DAILY #90 caps 11/26/21 release Allergies Allergy/AdvReac Type Severity Reaction Status Date / Time Penicillins [PENICILLINS] Allergy Severe Swelling Verified 11/27/21 23:11 of Lip/Tongue/Throat shellfish derived Allergy Intermediate Rash Verified 11/27/21 23:11 Sulfa (Sulfonamide Allergy Intermediate Rash Verified 11/27/21 23:11 Antibiotics) [SULFA (SULFONAMIDE ANTIBIOTICS)] sulfamethoxazole Allergy Intermediate Rash Verified 11/27/21 23:11 [From Bactrim] trimethoprim [From Bactrim] Allergy Intermediate Rash Verified 11/27/21 23:11 Review of Systems Review of Systems Narrative: GENERAL: Denies chills, fatigue, malaise, fever, sweats. HEENT: Denies sinus pain, ear pain, sore throat, difficulty swallowing, dizziness. RESPIRATORY: Denies dyspnea, cough, wheezing, hemoptysis, sputum. CARDIOVASCULAR: Denies chest pain, palpitations, orthopnea, edema, GASTROINTESTINAL: Denies nausea, vomiting, abdominal pain, diarrhea, constipation, melena. : Denies dysuria, frequency, incontinence, hematuria, urinary retention. MUSCULOSKELETAL: See HPI SKIN: Denies rash, skin lesions, or other NEUROLOGIC: Denies weakness, headache, numbness, change in speech, confusion, seizures, incoordination. PSYCHIATRIC: No concerning psychosocial issues. 12 point review of systems is negative except for those stated above Patient History Medical History Alcohol withdrawal seizure Anxiety Avascular necrosis of bone of hip Bipolar disorder Chicken pox Chlamydia (~1988) Cirrhosis Colon polyp COPD (chronic obstructive pulmonary disease) Delirium tremens Depression Esophageal varices Esophageal web Hayfever Hemorrhoids Hypothyroidism (1997) Irregular periods/menstrual cycles MRSA infection Pancytopenia Papillary adenocarcinoma of thyroid Seizures Shoulder pain Substance abuse Surgical History Anesthesia complication History of adenoidectomy History of bunionectomy History of dilation and curettage History of esophageal surgery (2016) History of left hip replacement (08/2017) History of placement of ear tubes History of right hip replacement (11/2017) History of tonsillectomy History of total thyroidectomy (1997) Family History Father No problems noted. Mother Depression Hyperlipidemia Thyroid disorder Mental health problem Brother No problems noted. Grandfather Lung cancer Cancer Grandmother Thyroid disorder Potassium disorder Hyperlipidemia Hypertension Grandfather No problems noted. Grandmother No problems noted. Family/Other No problems noted. Social History household members: significant other Smoking Status: Former smoker alcohol intake: current substance use type: does not use eating out: rarely or never Type(s) of exercise: none Smoking Status: Former smoker tobacco type: vaping alcohol intake frequency: 3 or more drinks per day Alcohol type: hard liquor Substance Use Type: marijuana Exam Narrative Exam Narrative: GENERAL: [51] year old patient appears stated age. Well-developed patient, in mild distress. GCS 15 HEAD: Atraumatic. Normocephalic. No contusion, hematoma, abrasion or evidence of depressed skull fracture EYES: Pupils equal round and reactive. Extraocular motions intact. No scleral icterus. No injection or drainage. ENT: Nose without bleeding, purulent drainage. Throat without erythema, tonsillar hypertrophy or exudate. Airway patent. NECK: Trachea midline. Non tender CARDIOVASCULAR: Regular rate and rhythm without murmurs, gallops, or rubs. RESPIRATORY: Clear to auscultation. Breath sounds equal bilaterally. No wheezes, rales, or rhonchi. GASTROINTESTINAL: Abdomen soft, non-tender, nondistended. EXTREMITIES: No edema or joint tenderness. BACK: Midline thoracic pain, no crepitance or step-offs, no edema, fluctuance or obvious external manifestation of injury. No saddle anesthesia or lower extremity weakness NEURO: AOx3. SKIN: No rash or erythema of visible areas Initial Vital Signs Initial Vital Signs: Vital Signs Temperature 97.0 F L 11/27/21 23:08 Pulse Rate 75 11/27/21 23:08 Respiratory Rate 18 11/27/21 23:08 Blood Pressure 174/90 H 11/27/21 23:08 Pulse Oximetry 96 11/27/21 23:08 Oxygen Delivery Method 11/27/21 23:08 Course Orders Ordered: ED Orders 11/28/21 01:10 XR thoracic spine 3V Stat Vital Signs Vital signs: Vital Signs - 8 hr 11/27/21 23:08 Temperature 97.0 F L Pulse Rate 75 Respiratory Rate 18 Blood Pressure 174/90 H Pulse Oximetry 96 Oxygen Delivery Method Room Air MDM - Back Pain/Injury Imaging Data T Spine: Radiologist's Impression: Close Thoracic Spine X-Ray (Signed) Aamir Ballard - 11/28/21 Launch?Image [address] [address] XRay Report Signed Patient: Yin Burch MR#: [id number] : 1970 Acct:[id number] Age/Sex: 51 / F Date of Service: 11/28/21 Loc: ED Accession Number: [id number] ?? Procedure: XR thoracic spine 3V Ordering Provider: Deep Zhao D.O. PROCEDURE:? XR THORACIC SPINE 3V ? INDICATIONS:? fall with midline pain on 11-26-21 ? TECHNIQUE:? 3 views of the thoracic spine were acquired.? ? COMPARISON:? [facility], CR, XR THORACIC SPINE 3V, 08/29/2021, 19:38. ? FINDINGS:? ? Bones:? No acute fracture or subluxation.? A mild to moderate anterior compression deformity of T8 vertebral body appears unchanged.? No suspicious bony lesions.? 12 pairs of ribs are noted, and appear intact where visualized.? ? Soft tissues:? No paravertebral stripe thickening.? ? IMPRESSION:? ? 1.? No definite acute fracture or subluxation. ? ? Dictated by: Aamir Ballard M.D. on 11/28/2021 at 1:57 ? ? Approved by: Aamir Ballard M.D. on 11/28/2021 at 1:59 ? Discharge Plan Departure Patient Disposition: Home Clinical Impression: Contusion of thoracic spine Instructions: Thoracic Back Pain Activity Restrictions/Additional Instructions: *You have been diagnosed with [thoracic contusion, as we discussed your history and physical exam are very reassuring and x-ray demonstrates no evidence of fracture or subluxation *What to do: *Please continue to take your regular medications as directed. [ ] New medication prescriptions sent to your pharmacy: [ ] [ ] New medication written as a paper prescription [x ] No new medications given *Please follow up with your primary care provider in 2-3 days, call for an appointment. Let them know you were seen in the Emergency Department and that we ask that you be seen in follow up. We will electronically transmit a record of today's note if your PCP is in our system *If you do not have a primary care provider please contact the [facility] Resource line at [phone]. They will ask some questions about your medical history and help get you set up with a doctor in the community. *Return to Emergency Department if you should have any new, worsening or concerning symptoms, such as [fever greater than 101 F, shaking chills, worsening pain, persistent vomiting or other bothersome symptoms] Prescriptions: No Action aspirin [Adult Low Dose Aspirin] 81 mg tablet,delayed release (DR/EC) 81 mg PO DAILY (DME) blood-glucose meter [True Metrix Glucose Meter] Mis See Rx Instructions .ROUTE .MEDSUPPLY Qty: 1 0RF Rx Instructions: use to chekc blood sugar 4 times a day (DME) True Metrix Glucose Test Strip Strip See Rx Instructions .ROUTE .MEDSUPPLY Qty: 400 3RF Rx Instructions: use to check blood sugar 4 times a day (DME) lancets Mis See Rx Instructions .ROUTE .MEDSUPPLY Qty: 400 3RF Rx Instructions: use to check blood sugar 4 times a day, brand per ins. levothyroxine 200 mcg tablet 200 mcg PO DAILY Qty: 90 3RF pravastatin 20 mg tablet 20 mg PO BEDTIME Qty: 90 3RF nadolol 40 mg tablet 40 mg PO DAILY Qty: 90 2RF sertraline 50 mg tablet 50 mg PO DAILY Qty: 90 1RF metformin 1,000 mg tablet extended release 24hr 1,000 mg PO BID Qty: 60 0RF omeprazole 20 mg capsule,delayed release(DR/EC) 20 mg PO DAILY Qty: 90 2RF furosemide 40 mg tablet 40 mg PO DAILY Qty: 30 5RF hydroxyzine HCl 50 mg tablet 50 mg PO TID PRN (Reason: anxiety) Qty: 90 11RF acamprosate 333 mg tablet,delayed release (DR/EC) 666 mg PO TID Qty: 180 5RF asenapine maleate [Saphris] 5 mg tablet, sublingual 10 mg sublingual BEDTIME 30 Days Qty: 60 0RF Rx Instructions: 30 DAYS ONLY OK. PATIENT NEEDS TO FIND BEHAVIORAL HEALTH DOC FOR CONT'D FILLS. multivitamin with folic acid [Tab-A-Feroz] 400 mcg Tablet 1 tab PO DAILY Qty: 30 0RF milk thistle 150 mg Capsule 300 mg PO DAILY Rx Instructions: give with meal/snack liothyronine 5 mcg tablet 5 mcg PO BID lidocaine 5 % adhesive patch,medicated 1 patch topical DAILY Qty: 1 0RF Rx Instructions: leave on most painful area for up to 12 hrs Referrals: Miguel Ángel Leary MD [Primary Care Provider] - Visit Report Forms: Patient Portal/API
--- NOTE | 2021-11-28 01:10 | DI.RAD.S_ITS ---
PROCEDURE: XR THORACIC SPINE 3V INDICATIONS: fall with midline pain on 11-26-21 TECHNIQUE: 3 views of the thoracic spine were acquired. COMPARISON: [facility], CR, XR THORACIC SPINE 3V, 08/29/2021, 19:38. FINDINGS: Bones: No acute fracture or subluxation. A mild to moderate anterior compression deformity of T8 vertebral body appears unchanged. No suspicious bony lesions. 12 pairs of ribs are noted, and appear intact where visualized. Soft tissues: No paravertebral stripe thickening. IMPRESSION: 1. No definite acute fracture or subluxation. Dictated by: Aamir Ballard M.D. on 11/28/2021 at 1:57 Approved by: Aamir Ballard M.D. on 11/28/2021 at 1:59
== END 2021-11-28 02:23 | disposition home or self-care (01) ==
PROVIDERS: Emergency Provider Emergency Medicine; PCP Student in an Organized Health Care Education/Training Program
DX: S20.229A Contusion of unspecified back wall of thorax, initial encounter (principal); W19.XXXA Unspecified fall, initial encounter
CPT/HCPCS: 72072; 99281; 99283

== ENCOUNTER 2021-12-02 15:42 | Emergency (ER) | payer OTHER, MEDICAID, SELFPAY ==
[2021-08-18 11:59] VITALS: BMI 34.7
[2021-12-02] VITALS (21 sets, daily range): BP systolic 122–176; BP diastolic 53–105; PULSE 49–88; RESP 22–38; TEMP 35.9; O2SAT 92–100
--- NOTE | 2021-12-02 16:00 | PC.NURSE ---
Pt was helped to the bathroom. Pt appears to be heavily under the influence. She states she has drank a lot of vodka today. She is very impulsive and unstable on her feet. She was incontinent of bowel and bladder and was cleaned up, put in a diaper and changed into clean pants. Pt now sitting in a highly visible area and instructed multiple times not to get up without assistance.
--- NOTE | 2021-12-02 16:17 | ED_ITS ---
HPI - Alcohol General Chief Complaint: Toxicology Problem Stated Complaint: ETOH Time Seen by Provider: 12/02/21 16:17 Source: patient Mode of arrival: Ambulatory History of Present Illness HPI narrative: Patient is a 51-year-old female history of diabetes type 2 cirrhosis, alcoholism, multiple alcohol withdrawal seizures she has been his facility any time her last visit was November 28 for ground level fall and back pain. Today she presents with alcohol intoxication and increasing falls. She I had is obviously intoxicating stating that she only had 4 Jell-O shots today. Glucose is found to be greater than 500 she is tachycardic. She is awake and alert able to follow some commands. She really has no complaints and would like to go. He apparently called EMS requesting detox. Overall a very poor historian Related Data Home Medications Medication Instructions Recorded Confirmed aspirin 81 mg tablet,delayed 81 mg PO DAILY 12/17/19 09/10/21 release (Adult Low Dose Aspirin) liothyronine 5 mcg tablet 5 mcg PO BID 08/17/21 09/10/21 milk thistle 150 mg capsule 300 mg PO DAILY 08/17/21 09/10/21 Previous Rx's Medication Instructions Recorded blood sugar diagnostic (True #400 ea 03/07/20 Metrix Glucose Test Strip) blood-glucose meter (True Metrix #1 ea 03/07/20 Glucose Meter) lancets #400 ea 03/07/20 levothyroxine 200 mcg tablet 200 mcg PO DAILY #90 tabs 12/10/20 pravastatin 20 mg tablet 20 mg PO BEDTIME #90 tabs 03/01/21 nadolol 40 mg tablet 40 mg PO DAILY #90 tabs 04/26/21 sertraline 50 mg tablet 50 mg PO DAILY #90 tabs 05/13/21 multivitamin with folic acid 400 1 tab PO DAILY #30 tabs 06/05/21 mcg tablet (Tab-A-Feroz) furosemide 40 mg tablet 40 mg PO DAILY #30 tabs 06/18/21 hydroxyzine HCl 50 mg tablet 50 mg PO TID PRN anxiety #90 tabs 06/18/21 lidocaine 5 % topical patch 1 patch topical DAILY #1 ea 08/29/21 metformin 1,000 mg tablet,extended 1,000 mg PO BID #60 tabs 09/02/21 release 24hr acamprosate 333 mg tablet,delayed 666 mg PO TID #180 tabs 05/03/22 release asenapine maleate 5 mg sublingual 10 mg sublingual BEDTIME 30 days 09/10/21 tablet (Saphris) #60 tabs omeprazole 20 mg capsule,delayed 20 mg PO DAILY #90 caps 11/26/21 release Allergies Allergy/AdvReac Type Severity Reaction Status Date / Time Penicillins [PENICILLINS] Allergy Severe Swelling Verified 11/27/21 23:11 of Lip/Tongue/Throat shellfish derived Allergy Intermediate Rash Verified 11/27/21 23:11 Sulfa (Sulfonamide Allergy Intermediate Rash Verified 11/27/21 23:11 Antibiotics) [SULFA (SULFONAMIDE ANTIBIOTICS)] sulfamethoxazole Allergy Intermediate Rash Verified 11/27/21 23:11 [From Bactrim] trimethoprim [From Bactrim] Allergy Intermediate Rash Verified 11/27/21 23:11 Review of Systems Review of Systems Narrative: See HPI Patient History Medical History Alcohol withdrawal seizure Anxiety Avascular necrosis of bone of hip Bipolar disorder Chicken pox Chlamydia (~1988) Cirrhosis Colon polyp COPD (chronic obstructive pulmonary disease) Delirium tremens Depression Esophageal varices Esophageal web Hayfever Hemorrhoids Hypothyroidism (1997) Irregular periods/menstrual cycles MRSA infection Pancytopenia Papillary adenocarcinoma of thyroid Seizures Shoulder pain Substance abuse Surgical History Anesthesia complication History of adenoidectomy History of bunionectomy History of dilation and curettage History of esophageal surgery (2016) History of left hip replacement (08/2017) History of placement of ear tubes History of right hip replacement (11/2017) History of tonsillectomy History of total thyroidectomy (1997) Family History Father No problems noted. Mother Depression Hyperlipidemia Thyroid disorder Mental health problem Brother No problems noted. Grandfather Lung cancer Cancer Grandmother Thyroid disorder Potassium disorder Hyperlipidemia Hypertension Grandfather No problems noted. Grandmother No problems noted. Family/Other No problems noted. Social History household members: significant other Smoking Status: Former smoker alcohol intake: current substance use type: does not use eating out: rarely or never Type(s) of exercise: none Smoking Status: Former smoker tobacco type: vaping alcohol intake frequency: 3 or more drinks per day Alcohol type: hard liquor Substance Use Type: marijuana Exam Initial Vital Signs Initial Vital Signs: Vital Signs Temperature 96.6 F L 12/02/21 16:14 Pulse Rate 49 L 12/02/21 16:14 Respiratory Rate 38 H 12/02/21 16:14 Blood Pressure 159/93 H 12/02/21 16:14 Pulse Oximetry 99 12/02/21 16:14 Oxygen Delivery Method 12/02/21 16:14 GENERAL: Intoxicated 51-year-old female slurring speech moving all extremities HEENT: Head atraumatic,EOMI, pupils reactive, face symmetric, moist mucous membranes CARDIOVASCULAR: Regular rate and rhythm without murmurs, rubs or gallops. RESPIRATORY: Breath sounds equal bilaterally, no wheezes rales or rhonchi. ABDOMEN: Soft, nontender. Normoactive bowel sounds all 4 quadrants. No guardin g or rebound. EXTREMITIES: Normal range of motion, no clubbing or edema. Neurovascularly intact NEUROLOGICAL: Alert and oriented x2. No tremor SKIN: Warm, dry, no laceration, no petechiae, no rashes or lesions. Course Orders Ordered: Discontinued Medications Desmopressin Acetate (Desmopressin 4 Mcg/Ml Ampul) 1 mcg IV NOW ONE Stop: 12/02/21 21:35 Last Admin: 12/02/21 22:00 Dose: Not Given Documented By: RYAN Diazepam (Diazepam 10 Mg/2 Ml Syringe) 2 mg IV NOW ONE Stop: 12/02/21 21:45 Last Admin: 12/02/21 22:42 Dose: Not Given Documented By: RYAN Sodium Chloride (Normal Saline 0.9%) 1,000 mls @ 1,000 mls/hr IV BOLUS ONE Stop: 12/02/21 17:16 Last Infusion: 12/02/21 18:31 Dose: 0 mls/hr Documented By: Admin: 12/02/21 17:14 Dose: 1,000 mls/hr Documented By: PASTORA Thiamine HCl 200 mg/ Sodium (Chloride) 102 mls @ 408 mls/hr IV NOW ONE Stop: 12/02/21 17:25 Last Infusion: 12/02/21 18:32 Dose: 0 mls/hr Documented By: Admin: 12/02/21 17:33 Dose: 408 mls/hr Documented By: PASTORA Cefepime HCl 2 gm/ Sodium (Chloride) 100 mls @ 200 mls/hr IV NOW ONE Stop: 12/02/21 18:29 Last Infusion: 12/02/21 20:20 Dose: 0 mls/hr Documented By: Admin: 12/02/21 18:58 Dose: 200 mls/hr Documented By: SB Vancomycin HCl (Vancomycin) 1,000 mg in 200 mls @ 200 mls/hr IV NOW ONE Stop: 12/02/21 19:27 Last Infusion: 12/02/21 21:42 Dose: 0 mls/hr Documented By: Admin: 12/02/21 19:55 Dose: 200 mls/hr Documented By: ERICK Lactated Ringer's (Lactated Ringers) 1,000 mls @ 100 mls/hr IV CONT CORDELIA Last Infusion: 12/02/21 22:01 Dose: 0 mls/hr Documented By: Infusion: 12/02/21 20:20 Dose: 0 mls/hr Documented By: Admin: 12/02/21 19:05 Dose: 100 mls/hr Documented By: PASTORA Lactated Ringer's (Lactated Ringers) 1,000 mls @ 100 mls/hr IV CONT CRODELIA Last Admin: 12/02/21 20:46 Dose: Not Given Documented By: ERICK Sodium Chloride (Hypertonic Saline 3%) 500 mls @ 20 mls/hr IV CONT CORDELIA Last Infusion: 12/02/21 22:40 Dose: 0 mls/hr Documented By: Infusion: 12/02/21 20:53 Dose: 0 mls/hr Documented By: Admin: 12/02/21 20:30 Dose: 20 mls/hr Documented By: SB POTASSIUM CHLORIDE IN WATER (Potassium Cl 10 Meq/100 Ml Deborah) 10 meq in 100 mls @ 100 mls/hr IV Q1H CORDELIA Stop: 12/03/21 03:14 Last Infusion: 12/02/21 22:40 Dose: 0 mls/hr Documented By: Admin: 12/02/21 22:25 Dose: 100 mls/hr Documented By: Infusion: 12/02/21 22:23 Dose: 100 mls/hr Documented By: Admin: 12/02/21 21:23 Dose: 100 mls/hr Documented By: PASTORA Lorazepam (Lorazepam 2 Mg/Ml Inj) 2 mg IV NOW ONE Stop: 12/02/21 17:25 Last Admin: 12/02/21 17:38 Dose: Not Given Documented By: PASTORA Phenobarbital (Phenobarbital 65 Mg/Ml Vial) 260 mg IV NOW ONE Stop: 12/02/21 17:35 Last Admin: 12/02/21 17:57 Dose: 260 mg Documented By: PASTORA Vital Signs Vital signs: Vital Signs - 8 hr 12/02/21 16:14 12/02/21 16:15 12/02/21 16:19 Temperature 96.6 F L Pulse Rate 49 L Respiratory Rate 38 H Blood Pressure 159/93 H 176/96 H Pulse Oximetry 99 98 Oxygen Delivery Method Room Air 12/02/21 16:19 12/02/21 16:30 12/02/21 17:00 Temperature Pulse Rate 74 88 63 Respiratory Rate 25 H 23 24 Blood Pressure Pulse Oximetry 100 99 Oxygen Delivery Method Room Air 12/02/21 17:30 12/02/21 18:00 12/02/21 18:24 Temperature Pulse Rate 60 63 58 L Respiratory Rate 22 Blood Pressure Pulse Oximetry 92 98 97 Oxygen Delivery Method 12/02/21 18:24 12/02/21 18:30 12/02/21 19:00 Temperature Pulse Rate 61 69 Respiratory Rate Blood Pressure 126/97 H Pulse Oximetry 95 96 Oxygen Delivery Method 12/02/21 19:23 12/02/21 19:23 12/02/21 19:30 Temperature Pulse Rate 61 60 Respiratory Rate Blood Pressure 163/105 H Pulse Oximetry 98 98 Oxygen Delivery Method MDM - Alcohol Lab Data Result diagrams: 12/02/21 17:10 12/02/21 22:07 Labs: Lab Results 12/02/21 12/02/21 12/02/21 Range/Units 07:45 07:45 17:10 WBC 24.0 H (4.5-11.0) X10^3/uL RBC 5.58 H (4.0-5.2) X10^6/uL Hgb 14.6 (12.0-16.0) g/dL Hct 39.5 (36-46) % MCV 70.7 L (80-100) fL MCH 26.1 (26-34) PG MCHC 36.9 H (30-36) % RDW 13.3 (11.6-14.8) % Plt Count 347 (150-400) X10^3/uL Neut % (Auto) 81.7 H (50-75) % Lymph % (Auto) 12.5 L (25-40) % [place] % (Auto) 5.4 (3-14) % Eos % (Auto) 0.1 L (2-4) % Baso % (Auto) 0.3 (0-2) % Neut # (Auto) 28586 H (3319-6636) /uL Lymph # (Auto) 3000 (2027-1600) /uL [place] # (Auto) 1300 H (0-900) /uL Eos # (Auto) 0 (0-450) /uL Baso # (Auto) 100 (0-100) /uL Sodium (137-145) mmol/L Potassium (3.4-5.1) mmol/L Chloride (98-107) mmol/L Carbon Dioxide (22-32) mmol/L BUN (7-17) mg/dL Creatinine (0.52-1.04) mg/dL Estimated GFR (>60) mL/min BUN/Creatinine Ratio (6-22) Glucose (70-100) mg/dL Lactate (0.7-2.1) mmol/L Calcium (8.4-10.2) mg/dL Magnesium (1.6-2.3) mg/dL Total Bilirubin (0.2-1.3) mg/dL AST (14-36) IU/L ALT (<35) IU/L Alkaline Phosphatase (38-126) U/L Total Creatine Kinase (30-135) U/L CK-MB (CK-2) (<2.37) ng/mL CK-MB (CK-2) Rel Index (1.5-5.0) % Troponin I (0.01-0.034) ng/mL Total Protein (6.3-8.2) g/dL Albumin (3.5-5.0) g/dL Globulin (1.7-4.1) g/dL Albumin/Globulin Ratio (1.0-2.8) Lipase (23-300) U/L Procalcitonin (<0.5) ng/mL TSH (0.47-4.68) uIU/mL Urine Color Yellow Urine Appearance Clear Urine pH 6.0 (4.5-8.0) Ur Specific [place] 1.010 (1.000-1.035) Urine Protein 2+ H (Negative) Urine Glucose (UA) 2+ H (Negative) g/dL Urine Ketones Negative (NEGATIVE) Urine Occult Blood 3+ H (Negative) Urine Nitrate Negative (Negative) Urine Bilirubin Negative (NEGATIVE) Urine Urobilinogen 0.2 (0.2) E.U./dL Ur Leukocyte Esterase Negative (NEGATIVE) Urine RBC 5-10/hpf H (0-5/HPF) Urine WBC 0-1/hpf (0-5/HPF) Ur Squamous Epith Cells 5-10 /hpf H (0-5/HPF) Amorphous Sediment 1+ Urine Bacteria Occasional (0-1) (None) Ur Culture Indicated? Cult not indicated Ur Random Sodium 19 L (30-90) mmol/L Salicylates (<20) mg/dL Acetaminophen (10-30) ug/mL Ethyl Alcohol ( - 10) mg/dL Ketones (<0.27) mmol/L SARS-CoV-2 (PCR) (Negative) 12/02/21 12/02/21 12/02/21 Range/Units 17:10 17:10 17:10 WBC (4.5-11.0) X10^3/uL RBC (4.0-5.2) X10^6/uL Hgb (12.0-16.0) g/dL Hct (36-46) % MCV (80-100) fL MCH (26-34) PG MCHC (30-36) % RDW (11.6-14.8) % Plt Count (150-400) X10^3/uL Neut % (Auto) (50-75) % Lymph % (Auto) (25-40) % [place] % (Auto) (3-14) % Eos % (Auto) (2-4) % Baso % (Auto) (0-2) % Neut # (Auto) (1245-4973) /uL Lymph # (Auto) (4111-4966) /uL [place] # (Auto) (0-900) /uL Eos # (Auto) (0-450) /uL Baso # (Auto) (0-100) /uL Sodium 97 L* (137-145) mmol/L Potassium 2.1 L* (3.4-5.1) mmol/L Chloride 50 L* (98-107) mmol/L Carbon Dioxide 19 L (22-32) mmol/L BUN 3 L (7-17) mg/dL Creatinine 0.67 (0.52-1.04) mg/dL Estimated GFR > 60 (>60) mL/min BUN/Creatinine Ratio 4.5 L (6-22) Glucose 359 H (70-100) mg/dL Lactate 10.5 H* (0.7-2.1) mmol/L Calcium 8.0 L (8.4-10.2) mg/dL Magnesium (1.6-2.3) mg/dL Total Bilirubin 1.2 (0.2-1.3) mg/dL AST 73 H (14-36) IU/L ALT 49 H (<35) IU/L Alkaline Phosphatase 134 H (38-126) U/L Total Creatine Kinase 1065 H (30-135) U/L CK-MB (CK-2) 17.00 H (<2.37) ng/mL CK-MB (CK-2) Rel Index 1.6 (1.5-5.0) % Troponin I < 0.012 (0.01-0.034) ng/mL Total Protein 8.5 H (6.3-8.2) g/dL Albumin 5.2 H (3.5-5.0) g/dL Globulin 3.3 (1.7-4.1) g/dL Albumin/Globulin Ratio 1.6 (1.0-2.8) Lipase 104 (23-300) U/L Procalcitonin (<0.5) ng/mL TSH 0.024 L (0.47-4.68) uIU/mL Urine Color Urine Appearance Urine pH (4.5-8.0) Ur Specific [place] (1.000-1.035) Urine Protein (Negative) Urine Glucose (UA) (Negative) g/dL Urine Ketones (NEGATIVE) Urine Occult Blood (Negative) Urine Nitrate (Negative) Urine Bilirubin (NEGATIVE) Urine Urobilinogen (0.2) E.U./dL Ur Leukocyte Esterase (NEGATIVE) Urine RBC (0-5/HPF) Urine WBC (0-5/HPF) Ur Squamous Epith Cells (0-5/HPF) Amorphous Sediment Urine Bacteria (None) Ur Culture Indicated? Ur Random Sodium (30-90) mmol/L Salicylates < 1.0 (<20) mg/dL Acetaminophen < 10 (10-30) ug/mL Ethyl Alcohol 139 H ( - 10) mg/dL Ketones 0.20 (<0.27) mmol/L SARS-CoV-2 (PCR) (Negative) 12/02/21 12/02/21 12/02/21 Range/Units 17:10 17:20 18:17 WBC (4.5-11.0) X10^3/uL RBC (4.0-5.2) X10^6/uL Hgb (12.0-16.0) g/dL Hct (36-46) % MCV (80-100) fL MCH (26-34) PG MCHC (30-36) % RDW (11.6-14.8) % Plt Count (150-400) X10^3/uL Neut % (Auto) (50-75) % Lymph % (Auto) (25-40) % [place] % (Auto) (3-14) % Eos % (Auto) (2-4) % Baso % (Auto) (0-2) % Neut # (Auto) (2249-0764) /uL Lymph # (Auto) (3755-3049) /uL [place] # (Auto) (0-900) /uL Eos # (Auto) (0-450) /uL Baso # (Auto) (0-100) /uL Sodium 97 L* (137-145) mmol/L Potassium 2.2 L* (3.4-5.1) mmol/L Chloride 52 L* (98-107) mmol/L Carbon Dioxide 21 L (22-32) mmol/L BUN 2 L (7-17) mg/dL Creatinine 0.47 L (0.52-1.04) mg/dL Estimated GFR > 60 (>60) mL/min BUN/Creatinine Ratio 4.3 L (6-22) Glucose 289 H (70-100) mg/dL Lactate (0.7-2.1) mmol/L Calcium 7.6 L (8.4-10.2) mg/dL Magnesium (1.6-2.3) mg/dL Total Bilirubin (0.2-1.3) mg/dL AST (14-36) IU/L ALT (<35) IU/L Alkaline Phosphatase (38-126) U/L Total Creatine Kinase (30-135) U/L CK-MB (CK-2) (<2.37) ng/mL CK-MB (CK-2) Rel Index (1.5-5.0) % Troponin I (0.01-0.034) ng/mL Total Protein (6.3-8.2) g/dL Albumin (3.5-5.0) g/dL Globulin (1.7-4.1) g/dL Albumin/Globulin Ratio (1.0-2.8) Lipase (23-300) U/L Procalcitonin 0.08 (<0.5) ng/mL TSH (0.47-4.68) uIU/mL Urine Color Urine Appearance Urine pH (4.5-8.0) Ur Specific [place] (1.000-1.035) Urine Protein (Negative) Urine Glucose (UA) (Negative) g/dL Urine Ketones (NEGATIVE) Urine Occult Blood (Negative) Urine Nitrate (Negative) Urine Bilirubin (NEGATIVE) Urine Urobilinogen (0.2) E.U./dL Ur Leukocyte Esterase (NEGATIVE) Urine RBC (0-5/HPF) Urine WBC (0-5/HPF) Ur Squamous Epith Cells (0-5/HPF) Amorphous Sediment Urine Bacteria (None) Ur Culture Indicated? Ur Random Sodium (30-90) mmol/L Salicylates (<20) mg/dL Acetaminophen (10-30) ug/mL Ethyl Alcohol ( - 10) mg/dL Ketones (<0.27) mmol/L SARS-CoV-2 (PCR) Negative (Negative) 12/02/21 12/02/21 12/02/21 Range/Units 18:17 19:39 19:39 WBC (4.5-11.0) X10^3/uL RBC (4.0-5.2) X10^6/uL Hgb (12.0-16.0) g/dL Hct (36-46) % MCV (80-100) fL MCH (26-34) PG MCHC (30-36) % RDW (11.6-14.8) % Plt Count (150-400) X10^3/uL Neut % (Auto) (50-75) % Lymph % (Auto) (25-40) % [place] % (Auto) (3-14) % Eos % (Auto) (2-4) % Baso % (Auto) (0-2) % Neut # (Auto) (8063-7440) /uL Lymph # (Auto) (6201-9132) /uL [place] # (Auto) (0-900) /uL Eos # (Auto) (0-450) /uL Baso # (Auto) (0-100) /uL Sodium 96 L* (137-145) mmol/L Potassium 1.8 L* (3.4-5.1) mmol/L Chloride 52 L* (98-107) mmol/L Carbon Dioxide 22 (22-32) mmol/L BUN < 2 L (7-17) mg/dL Creatinine 0.55 (0.52-1.04) mg/dL Estimated GFR > 60 (>60) mL/min BUN/Creatinine Ratio 3.6 L (6-22) Glucose 255 H (70-100) mg/dL Lactate 6.8 H* 7.3 H* (0.7-2.1) mmol/L Calcium 7.3 L (8.4-10.2) mg/dL Magnesium (1.6-2.3) mg/dL Total Bilirubin (0.2-1.3) mg/dL AST (14-36) IU/L ALT (<35) IU/L Alkaline Phosphatase (38-126) U/L Total Creatine Kinase (30-135) U/L CK-MB (CK-2) (<2.37) ng/mL CK-MB (CK-2) Rel Index (1.5-5.0) % Troponin I (0.01-0.034) ng/mL Total Protein (6.3-8.2) g/dL Albumin (3.5-5.0) g/dL Globulin (1.7-4.1) g/dL Albumin/Globulin Ratio (1.0-2.8) Lipase (23-300) U/L Procalcitonin (<0.5) ng/mL TSH (0.47-4.68) uIU/mL Urine Color Urine Appearance Urine pH (4.5-8.0) Ur Specific [place] (1.000-1.035) Urine Protein (Negative) Urine Glucose (UA) (Negative) g/dL Urine Ketones (NEGATIVE) Urine Occult Blood (Negative) Urine Nitrate (Negative) Urine Bilirubin (NEGATIVE) Urine Urobilinogen (0.2) E.U./dL Ur Leukocyte Esterase (NEGATIVE) Urine RBC (0-5/HPF) Urine WBC (0-5/HPF) Ur Squamous Epith Cells (0-5/HPF) Amorphous Sediment Urine Bacteria (None) Ur Culture Indicated? Ur Random Sodium (30-90) mmol/L Salicylates (<20) mg/dL Acetaminophen (10-30) ug/mL Ethyl Alcohol ( - 10) mg/dL Ketones (<0.27) mmol/L SARS-CoV-2 (PCR) (Negative) 12/02/21 12/02/21 12/02/21 Range/Units 20:30 20:45 21:05 WBC (4.5-11.0) X10^3/uL RBC (4.0-5.2) X10^6/uL Hgb (12.0-16.0) g/dL Hct (36-46) % MCV (80-100) fL MCH (26-34) PG MCHC (30-36) % RDW (11.6-14.8) % Plt Count (150-400) X10^3/uL Neut % (Auto) (50-75) % Lymph % (Auto) (25-40) % [place] % (Auto) (3-14) % Eos % (Auto) (2-4) % Baso % (Auto) (0-2) % Neut # (Auto) (5521-9529) /uL Lymph # (Auto) (8472-7823) /uL [place] # (Auto) (0-900) /uL Eos # (Auto) (0-450) /uL Baso # (Auto) (0-100) /uL Sodium 98 L* (137-145) mmol/L Potassium 1.8 L* (3.4-5.1) mmol/L Chloride 56 L* (98-107) mmol/L Carbon Dioxide 20 L (22-32) mmol/L BUN 2 L (7-17) mg/dL Creatinine 0.43 L (0.52-1.04) mg/dL Estimated GFR > 60 (>60) mL/min BUN/Creatinine Ratio 4.7 L (6-22) Glucose 212 H (70-100) mg/dL Lactate 6.3 H* (0.7-2.1) mmol/L Calcium 7.0 L (8.4-10.2) mg/dL Magnesium 0.8 L* (1.6-2.3) mg/dL Total Bilirubin (0.2-1.3) mg/dL AST (14-36) IU/L ALT (<35) IU/L Alkaline Phosphatase (38-126) U/L Total Creatine Kinase (30-135) U/L CK-MB (CK-2) (<2.37) ng/mL CK-MB (CK-2) Rel Index (1.5-5.0) % Troponin I (0.01-0.034) ng/mL Total Protein (6.3-8.2) g/dL Albumin (3.5-5.0) g/dL Globulin (1.7-4.1) g/dL Albumin/Globulin Ratio (1.0-2.8) Lipase (23-300) U/L Procalcitonin (<0.5) ng/mL TSH (0.47-4.68) uIU/mL Urine Color Urine Appearance Urine pH (4.5-8.0) Ur Specific [place] (1.000-1.035) Urine Protein (Negative) Urine Glucose (UA) (Negative) g/dL Urine Ketones (NEGATIVE) Urine Occult Blood (Negative) Urine Nitrate (Negative) Urine Bilirubin (NEGATIVE) Urine Urobilinogen (0.2) E.U./dL Ur Leukocyte Esterase (NEGATIVE) Urine RBC (0-5/HPF) Urine WBC (0-5/HPF) Ur Squamous Epith Cells (0-5/HPF) Amorphous Sediment Urine Bacteria (None) Ur Culture Indicated? Ur Random Sodium (30-90) mmol/L Salicylates (<20) mg/dL Acetaminophen (10-30) ug/mL Ethyl Alcohol ( - 10) mg/dL Ketones (<0.27) mmol/L SARS-CoV-2 (PCR) (Negative) 12/02/21 Range/Units 22:07 WBC (4.5-11.0) X10^3/uL RBC (4.0-5.2) X10^6/uL Hgb (12.0-16.0) g/dL Hct (36-46) % MCV (80-100) fL MCH (26-34) PG MCHC (30-36) % RDW (11.6-14.8) % Plt Count (150-400) X10^3/uL Neut % (Auto) (50-75) % Lymph % (Auto) (25-40) % [place] % (Auto) (3-14) % Eos % (Auto) (2-4) % Baso % (Auto) (0-2) % Neut # (Auto) (1401-9139) /uL Lymph # (Auto) (8958-2349) /uL [place] # (Auto) (0-900) /uL Eos # (Auto) (0-450) /uL Baso # (Auto) (0-100) /uL Sodium 99 L* (137-145) mmol/L Potassium 1.9 L* (3.4-5.1) mmol/L Chloride 56 L* (98-107) mmol/L Carbon Dioxide 21 L (22-32) mmol/L BUN 3 L (7-17) mg/dL Creatinine 0.45 L (0.52-1.04) mg/dL Estimated GFR > 60 (>60) mL/min BUN/Creatinine Ratio 6.7 (6-22) Glucose 183 H (70-100) mg/dL Lactate (0.7-2.1) mmol/L Calcium 7.2 L (8.4-10.2) mg/dL Magnesium (1.6-2.3) mg/dL Total Bilirubin (0.2-1.3) mg/dL AST (14-36) IU/L ALT (<35) IU/L Alkaline Phosphatase (38-126) U/L Total Creatine Kinase (30-135) U/L CK-MB (CK-2) (<2.37) ng/mL CK-MB (CK-2) Rel Index (1.5-5.0) % Troponin I (0.01-0.034) ng/mL Total Protein (6.3-8.2) g/dL Albumin (3.5-5.0) g/dL Globulin (1.7-4.1) g/dL Albumin/Globulin Ratio (1.0-2.8) Lipase (23-300) U/L Procalcitonin (<0.5) ng/mL TSH (0.47-4.68) uIU/mL Urine Color Urine Appearance Urine pH (4.5-8.0) Ur Specific [place] (1.000-1.035) Urine Protein (Negative) Urine Glucose (UA) (Negative) g/dL Urine Ketones (NEGATIVE) Urine Occult Blood (Negative) Urine Nitrate (Negative) Urine Bilirubin (NEGATIVE) Urine Urobilinogen (0.2) E.U./dL Ur Leukocyte Esterase (NEGATIVE) Urine RBC (0-5/HPF) Urine WBC (0-5/HPF) Ur Squamous Epith Cells (0-5/HPF) Amorphous Sediment Urine Bacteria (None) Ur Culture Indicated? Ur Random Sodium (30-90) mmol/L Salicylates (<20) mg/dL Acetaminophen (10-30) ug/mL Ethyl Alcohol ( - 10) mg/dL Ketones (<0.27) mmol/L SARS-CoV-2 (PCR) (Negative) Point of Care Testing Glucose POC 270 Imaging Data Chest x-ray: Radiologist's Impressoin: XRay Report Signed Patient: Yin Burch MR#: [id number] : 1970 Acct:[id number] Age/Sex: 51 / F Date of Service: 12/02/21 Loc: ED Accession Number: [id number] ?? Procedure: XR chest 1V Ordering Provider: Suzette Lea D.O. PROCEDURE:? XR CHEST 1V ? INDICATIONS:? sepsis ? TECHNIQUE:? One view of the chest was acquired.? ? COMPARISON:? [facility], , XR CHEST 1V, 10/13/2020, 6:05. ? FINDINGS:? ? Surgical changes and devices:? None.? ? Lungs and pleura:? Separation with increased vascularity.? No pleural effusions or pneumothorax.? ? Mediastinum:? Mediastinal contours appear normal.? Heart size is normal.? ? Bones and chest wall:? No suspicious bony lesions.? Old left 6th and 7th rib fractures.? Severe left shoulder joint degeneration.? Overlying soft tissues appear unremarkable.? ? IMPRESSION:? Shallow inspiration resulting in vascular crowding. ? ? Dictated by: Dayanara Bahena M.D. on 12/02/2021 at 20:02 ? ? CT scan - head: Radiologist's Impressoin: Yin Burch MR#: [id number] : 1970 Acct:[id number] Age/Sex: 51 / F Date of Service: 12/02/21 Loc: ED Accession Number: [id number] ?? Procedure: CT head/brain wo con Ordering Provider: Suzette Lea D.O. PROCEDURE:? CT HEAD/BRAIN WO CON ? INDICATIONS:? falls ? TECHNIQUE:? Noncontrast 4.5 mm thick angled axial sections acquired from the foramen magnum to the vertex, with coronal and sagittal reformats.? For radiation dose reduction, the following was used:? automated exposure control, adjustment of mA and/or kV according to patient size.? ? COMPARISON:? [facility], CT, CT HEAD/BRAIN WO CON, 06/21/2021, 20:01.? [facility], CT, CT HEAD/BRAIN WO CON, 08/14/2021, 19:12.? [facility], CT, CT HEAD/BRAIN WO CON, 08/15/2021, 7:30. ? FINDINGS:? Image quality:? This examination is limited by involuntary motion artifact.? ? CSF spaces:? Basal cisterns are patent.? No extra-axial fluid collections.? Ventricles are normal in size and shape.? ? Brain:? No midline shift.? No intracranial masses or hemorrhage.? Burt-white matter interface is normal.? ? Skull and face:? Calvarium and visualized facial bones are intact, without suspicious lesions.? ? Sinuses:? Visualized sinuses and mastoids are clear.? ? IMPRESSION:? Limited study demonstrating no acute intracranial hemorrhage.? ? No acute intracranial process is seen.? ? ? Dictated by: Irwin Mejia M.D. on 12/02/2021 at 17:53 ? ? ECG Data Interpretation: Significant artifact PVCs noted appears to be sinus rhythm Repeat EKG significant artifact may be junctional MDM Narrative Medical decision making narrative: Patient has a known alcoholic and diabetic initial POC was greater than 500 concern for possibly DKA versus hyperosmolar however glucose on laboratory values is 359, an alcohol level of 139. Patient is extremely confused. She is is found to have profound hyponatremia with a sodium of 97 potassium of 2.2, chloride of 50. Attempted and anion gap calculation however med calcs it was not possible. She is also found to have significant lactic acidosis with with i nitial lactate of 10 and a repeat of 6.8. She does have leukocytosis at 24 as well. Concern for sepsis. Patient does not have any abdominal pain. No obvious ascites although SVT is possible. Chest x-ray is negative urinalysis does not show any infection. She is empirically given cefepime and vancomycin. [address] DR. Driscoll ICU intensive in consultation for severe hyponatremia. At this time he recommends LR. 1800 Dr. Carnes sales representative printing supplies at [facility] Hospital has been updated patient's symptoms test results. At this time he actually recommend stopping the LR giving 100 cc of 3% and rechecking the sodium. He kindly accepts this patient in to his ICU. Patient is quite confused. She is intoxicated but not significantly. Her confusion is likely secondary to severe hyponatremia. She states that she has not been eating very much but drinking vodka cranberry. She continues to move all extremities. Critical Care Time Critical Care Time Critical Care Time: Yes Total Critical Care Time: 60 Attestation: The high probability of a clinically significant, sudden or life threatening deterioration of the [cardiovascular] system(s) required my full and direct attention, intervention and personal management. The aggregate critical care time was [60] minutes. This time is in addition to time spent performing reported procedures but includes the following: [x] Data Review and interpretation [x] Patient assessment and monitoring of vital signs [x] Documentation [x] Medication orders and management Discharge Plan Departure Patient Disposition: [facility] Clinical Impression: Acute hyponatremia, Sepsis Prescriptions: No Action aspirin [Adult Low Dose Aspirin] 81 mg tablet,delayed release (DR/EC) 81 mg PO DAILY (DME) blood-glucose meter [True Metrix Glucose Meter] Mis See Rx Instructions .ROUTE .MEDSUPPLY Qty: 1 0RF Rx Instructions: use to chekc blood sugar 4 times a day (DME) True Metrix Glucose Test Strip Strip See Rx Instructions .ROUTE .MEDSUPPLY Qty: 400 3RF Rx Instructions: use to check blood sugar 4 times a day (DME) lancets Misc See Rx Instructions .ROUTE .MEDSUPPLY Qty: 400 3RF Rx Instructions: use to check blood sugar 4 times a day, brand per ins. levothyroxine 200 mcg tablet 200 mcg PO DAILY Qty: 90 3RF pravastatin 20 mg tablet 20 mg PO BEDTIME Qty: 90 3RF nadolol 40 mg tablet 40 mg PO DAILY Qty: 90 2RF sertraline 50 mg tablet 50 mg PO DAILY Qty: 90 1RF metformin 1,000 mg tablet extended release 24hr 1,000 mg PO BID Qty: 60 0RF omeprazole 20 mg capsule,delayed release(DR/EC) 20 mg PO DAILY Qty: 90 2RF furosemide 40 mg tablet 40 mg PO DAILY Qty: 30 5RF hydroxyzine HCl 50 mg tablet 50 mg PO TID PRN (Reason: anxiety) Qty: 90 11RF acamprosate 333 mg tablet,delayed release (DR/EC) 666 mg PO TID Qty: 180 5RF asenapine maleate [Saphris] 5 mg tablet, sublingual 10 mg sublingual BEDTIME 30 Days Qty: 60 0RF Rx Instructions: 30 DAYS ONLY OK. PATIENT NEEDS TO FIND BEHAVIORAL HEALTH DOC FOR CONT'D FILLS. multivitamin with folic acid [Tab-A-Feroz] 400 mcg Tablet 1 tab PO DAILY Qty: 30 0RF milk thistle 150 mg Capsule 300 mg PO DAILY Rx Instructions: give with meal/snack liothyronine 5 mcg tablet 5 mcg PO BID lidocaine 5 % adhesive patch,medicated 1 patch topical DAILY Qty: 1 0RF Rx Instructions: leave on most painful area for up to 12 hrs Referrals: Miguel Ángel Leary MD [Primary Care Provider] -
--- NOTE | 2021-12-02 16:17 | DI.CT.S_ITS ---
PROCEDURE: CT HEAD/BRAIN WO CON INDICATIONS: falls TECHNIQUE: Noncontrast 4.5 mm thick angled axial sections acquired from the foramen magnum to the vertex, with coronal and sagittal reformats. For radiation dose reduction, the following was used: automated exposure control, adjustment of mA and/or kV according to patient size. COMPARISON: [facility], CT, CT HEAD/BRAIN WO CON, 06/21/2021, 20:01. [facility], CT, CT HEAD/BRAIN WO CON, 08/14/2021, 19:12. [facility], CT, CT HEAD/BRAIN WO CON, 08/15/2021, 7:30. FINDINGS: Image quality: This examination is limited by involuntary motion artifact. CSF spaces: Basal cisterns are patent. No extra-axial fluid collections. Ventricles are normal in size and shape. Brain: No midline shift. No intracranial masses or hemorrhage. Burt-white matter interface is normal. Skull and face: Calvarium and visualized facial bones are intact, without suspicious lesions. Sinuses: Visualized sinuses and mastoids are clear. IMPRESSION: Limited study demonstrating no acute intracranial hemorrhage. No acute intracranial process is seen. Dictated by: Irwin Mejia M.D. on 12/02/2021 at 17:53 Approved by: Irwin Mejia M.D. on 12/02/2021 at 17:54
[2021-12-02] MEDS: SODIUM CHLORIDE 0.9% 1,000 ML 1000 ML IV (17:14)
[2021-12-02 17:24] LABS: Add Manual Diff / Slide Review NO; Basophils Absolute Auto 100 /uL (0-100); Basophils Percent Auto 0.3 % (0-2); Eosinophils Absolute Auto 0 /uL (0-450); Eosinophils Percent Auto 0.1 % (2-4); Hematocrit 39.5 % (36-46); Hemoglobin 14.6 g/dL (12.0-16.0); Lymphocytes Absolute Auto 3000 /uL (1100-4500); Lymphocytes Percent Auto 12.5 % (25-40); Mean Corpuscular HGB Conc 36.9 % (30-36); Mean Corpuscular Hemoglobin 26.1 PG (26-34); Mean Corpuscular Volume 70.7 fL (80-100); Monocytes Absolute Auto 1300 /uL (0-900); Monocytes Percent Auto 5.4 % (3-14); Neutrophils Absolute Auto 19600 /uL (1500-7000); Neutrophils Percent Auto 81.7 % (50-75); Platelet Count 347 X10^3/uL (150-400); Red Blood Cell Count 5.58 X10^6/uL (4.0-5.2); Red Cell Distribution Width 13.3 % (11.6-14.8)
[2021-12-02] MEDS: THIAMINE 200 MG in SODIUM CHLORIDE 0.9% 100 ML 408 MG IV (17:33)
[2021-12-02 17:40] LABS: HEMOLYSIS < 15 (0-50)
[2021-12-02 17:45] LABS: Acetaminophen < 10 ug/mL (10-30); Alanine Aminotransferase 49 IU/L (<35); Albumin 5.2 g/dL (3.5-5.0); Albumin Globulin Ratio 1.6 (1.0-2.8); Alkaline Phosphatase 134 U/L (38-126); Aspartate Aminotransferase 73 IU/L (14-36); BUN Creatinine Ratio 4.5 (6-22); Bilirubin Total 1.2 mg/dL (0.2-1.3); Blood Urea Nitrogen 3 mg/dL (7-17); Carbon Dioxide 19 mmol/L (22-32); Creatine Kinase 1065 U/L (30-135); Estimated Glomerular Filt Rate > 60 mL/min (>60); Ethanol (ETOH) 139 mg/dL; Globulin 3.3 g/dL (1.7-4.1); Glucose 359 mg/dL (70-100); Lipase 104 U/L (23-300); Salicylate < 1.0 mg/dL (<20); Total Protein 8.5 g/dL (6.3-8.2)
[2021-12-02 17:56] LABS: Troponin I < 0.012 ng/mL (0.01-0.034)
[2021-12-02] MEDS: PHENobarbital 65 MG/ML VIAL 260 MG IV (17:57)
[2021-12-02 18:06] LABS: COVID19 -Nasal RAPID Negative (Negative)
[2021-12-02 18:09] LABS: Procalcitonin 0.08 ng/mL (<0.5)
[2021-12-02 18:11] LABS: Potassium 2.1 mmol/L (3.4-5.1); Sodium 97 mmol/L (137-145)
[2021-12-02 18:12] LABS: Chloride 50 mmol/L (98-107)
[2021-12-02 18:13] LABS: Lactate (Lactic Acid) 10.5 mmol/L (0.7-2.1)
[2021-12-02 18:23] LABS: Thyroid Stimulating Hormone 0.024 uIU/mL (0.47-4.68)
[2021-12-02 18:42] LABS: Calcium 7.6 mg/dL (8.4-10.2); Carbon Dioxide 21 mmol/L (22-32); Estimated Glomerular Filt Rate > 60 mL/min (>60); Glucose 289 mg/dL (70-100)
[2021-12-02 18:48] LABS: BUN Creatinine Ratio 4.3 (6-22); Blood Urea Nitrogen 2 mg/dL (7-17); HEMOLYSIS 87 (0-50); Lactate (Lactic Acid) 6.8 mmol/L (0.7-2.1)
[2021-12-02 18:51] LABS: Sodium 97 mmol/L (137-145)
[2021-12-02 18:52] LABS: Chloride 52 mmol/L (98-107); Potassium 2.2 mmol/L (3.4-5.1)
--- NOTE | 2021-12-02 18:57 | CM.SWNOTE ---
TACKING MACHINE OPERATOR Note Patient is 51 y/o female who presents to the ED via EMS due to concern for ETOH withdrawal and patient is seeking detox. TACKING MACHINE OPERATOR receives ED TACKING MACHINE OPERATOR consult. Due to patient's slurred speech and presentation, TACKING MACHINE OPERATOR does not meet with patient. Per ED provider Dr. Lea patient presents with critical lab results and may be transferred to a higher level of care hospital or admitted to ICU. Patient presents with a BAL level of 139. Patient has hx of similar presentations to the ED resulting in hospital admissions. Per EMR patient has hx of outpatient with [facility]. Plan: TACKING MACHINE OPERATOR to f/u with patient tomorrow if patient is still present in ED or IH, ED provider to further treat and assess patient while in ED. Didi Salter, [employer] TRA[employer]ER
[2021-12-02] MEDS: CEFEPIME 2 GM in SODIUM CHLORIDE 0.9% 100 ML IV (18:58)
[2021-12-02] MEDS: LACTATED RINGERS 1,000 ML 100 ML IV (19:05)
--- NOTE | 2021-12-02 19:09 | DI.RAD.S_ITS ---
PROCEDURE: XR CHEST 1V INDICATIONS: sepsis TECHNIQUE: One view of the chest was acquired. COMPARISON: [facility], CR, XR CHEST 1V, 10/13/2020, 6:05. FINDINGS: Surgical changes and devices: None. Lungs and pleura: Separation with increased vascularity. No pleural effusions or pneumothorax. Mediastinum: Mediastinal contours appear normal. Heart size is normal. Bones and chest wall: No suspicious bony lesions. Old left 6th and 7th rib fractures. Severe left shoulder joint degeneration. Overlying soft tissues appear unremarkable. IMPRESSION: Shallow inspiration resulting in vascular crowding. Dictated by: Dayanara Bahena M.D. on 12/02/2021 at 20:02 Approved by: Dayanara Bahena M.D. on 12/02/2021 at 20:04
[2021-12-02 19:10] LABS: CKMB % Relative Index 1.6 % (1.5-5.0)
[2021-12-02 19:20] LABS: Reflexed Lactate in 2 Hours Y
[2021-12-02] MEDS: VANCOMYCIN 1,000 MG/200 ML PIGGYBACK 200 MG IV (19:55)
--- NOTE | 2021-12-02 20:00 | PC.NURSE ---
patient pulled urinary jones catheter out. the balloon was still inflated. provider aware and provider ordered for another jones to be placed and provider is also going to order soft restraints due to patient constantly pulling at her IV site, blood pressure cuff, pulse ox and catheter.
[2021-12-02 20:01] LABS: Sodium Urine Random 19 mmol/L (30-90)
[2021-12-02 20:16] LABS: Calcium 7.3 mg/dL (8.4-10.2); Carbon Dioxide 22 mmol/L (22-32); Estimated Glomerular Filt Rate > 60 mL/min (>60); Glucose 255 mg/dL (70-100); HEMOLYSIS 19 (0-50)
[2021-12-02 20:23] LABS: Reflexed Lactate in 2 Hours Y
[2021-12-02 20:26] LABS: Appearance Urine UA CLEAR; Bilirubin Urine UA NEGATIVE (NEGATIVE); Color Urine UA YELLOW; Glucose Urine UA 2+ g/dL (Negative); Ketones Urine UA NEGATIVE (NEGATIVE); Leukocyte Esterase Urine UA NEGATIVE (NEGATIVE); Nitrite Urine UA NEGATIVE (Negative); Occult Blood Urine UA 3+ (Negative); Protein Urine UA 2+ (Negative); Urobilinogen Urine UA 0.2 E.U./dL (0.2)
[2021-12-02 20:29] LABS: BUN Creatinine Ratio 3.6 (6-22); Blood Urea Nitrogen < 2 mg/dL (7-17); Lactate 2HR (Lactic Acid Rflx) 7.3 mmol/L (0.7-2.1)
[2021-12-02 20:30] LABS: Potassium 1.8 mmol/L (3.4-5.1); Sodium 96 mmol/L (137-145)
[2021-12-02] MEDS: SODIUM CHLORIDE 3 % 500 ML 20 ML IV (20:30)
--- NOTE | 2021-12-02 20:30 | PC.NURSE ---
a second catheter was placed due to patient pulling out the first one. provider aware.
[2021-12-02 20:31] LABS: Chloride 52 mmol/L (98-107)
[2021-12-02 20:38] LABS: Amorphous Sediment Urine 1+; Bacteria Urine Occasional (0-1); Culture Indicated Urine Cult Not Indicated; RBC Urine 5-10/HPF (0-5/HPF); Squamous Epithelial Cell Urine 5-10 /HPF (0-5/HPF); WBC Urine 0-1/HPF (0-5/HPF)
[2021-12-02 21:20] LABS: Lactate 2HR (Lactic Acid Rflx) 6.3 mmol/L (0.7-2.1)
[2021-12-02] MEDS: POTASSIUM CHLORIDE IN WATER 10 MEQ/100 ML PIGGYBACK 100 MEQ IV ×2 (21:23→22:25)
[2021-12-02 21:32] LABS: Carbon Dioxide 20 mmol/L (22-32); Estimated Glomerular Filt Rate > 60 mL/min (>60); Glucose 212 mg/dL (70-100)
--- NOTE | 2021-12-02 21:47 | PC.NURSE ---
frame straightener at bedside.
[2021-12-02 21:50] LABS: HEMOLYSIS 24 (0-50)
[2021-12-02 21:54] LABS: BUN Creatinine Ratio 4.7 (6-22); Blood Urea Nitrogen 2 mg/dL (7-17)
[2021-12-02 21:56] LABS: Potassium 1.8 mmol/L (3.4-5.1); Sodium 98 mmol/L (137-145)
[2021-12-02 21:57] LABS: Chloride 56 mmol/L (98-107)
[2021-12-02 21:58] LABS: Magnesium 0.8 mg/dL (1.6-2.3)
[2021-12-02 22:26] LABS: BUN Creatinine Ratio 6.7 (6-22); Blood Urea Nitrogen 3 mg/dL (7-17); Calcium 7.2 mg/dL (8.4-10.2); Carbon Dioxide 21 mmol/L (22-32); Estimated Glomerular Filt Rate > 60 mL/min (>60); Glucose 183 mg/dL (70-100); HEMOLYSIS < 15 (0-50)
[2021-12-02 22:29] LABS: Chloride 56 mmol/L (98-107); Potassium 1.9 mmol/L (3.4-5.1); Sodium 99 mmol/L (137-145)
--- NOTE | 2021-12-02 22:40 | PC.NURSE ---
Pt required constant 1:1 critical care for her time in the ED. Pt needed constant redirection, reminders not to pull at IV lines, pulse oximeter, BP cuff, Jones catheter, telemetry monitoring, and assistance with bedpan and elimination. Pt pulled the first jones catheter that was placed out at 1999 and this RN notified provider Leonora. Provider aware and order placed for non-violent soft restraints and a new catheter. Dario Adler remained at bedside from 1814 until pt transferred at 2241. Santiagoter continued to redirect and reorient patient. Pt was frequently assessed by this RN and STIVEN Hamilton. Pt continued to be confused and attempting to pull at lines/IVs. provider aware. charge aware. pts skin integrity, range of motion and circulation checked frequently and observed with RN at bedside and sitter.
--- NOTE | 2021-12-02 22:40 | PC.NURSE ---
Pt transferred to [facility] via [facility] with 3% Sodium Chloride running at 50 mls/hr and potassium chloride at 100 mls/hr. Provider aware.
--- NOTE | 2021-12-02 22:54 | PC.NURSE ---
Addendum entered by Mckenzie Chong R.N. 12/02/21 23:12: Second Correction: 2240: Sodium Chloride 3% running at 50 mls/hr per RN Kiran with [facility]. Potassium running at 100 mls/hr. Provider Pavel don. Addendum entered by Mckenzie Chong R.N. 12/02/21 22:57: Correction for below note. Time should read 2220. Original Note: 2019: Sodium Chloride 3% running at 50 mls/hr per RN Jason with [facility]. Potassium running at 100 mls/hr via second IV site.
== END 2021-12-02 22:42 | disposition short-term general hospital (02) ==
PROVIDERS: Emergency Medicine; Emergency Provider Emergency Medicine; PCP Student in an Organized Health Care Education/Training Program
DX: E87.1 Hypo-osmolality and hyponatremia (principal); A41.9 Sepsis, unspecified organism; E11.65 Type 2 diabetes mellitus with hyperglycemia; F10.129 Alcohol abuse with intoxication, unspecified; Y90.6 Blood alcohol level of 120-199 mg/100 ml; Z20.822 Contact with and (suspected) exposure to COVID-19; R00.0 Tachycardia, unspecified; R29.6 Repeated falls
CPT/HCPCS: 36415; 70450; 71045; 80048; 80053; 80320; 80329; 81001; 82009; 82550; 82553; 82962; 83605; 83690; 83735; 84145; 84300; 84443; 84484; 85025; 87040; 87635; 93005; 96361; 96365; 96366; 96367; 96375; 99285; 99291; 99292; C9803; G0480; J0692; J2560

== ENCOUNTER → 2022-04-11 15:04 | Outpatient (CLI) | payer OTHER, MEDICAID, SELFPAY ==
[2021-08-18 11:59] VITALS: BMI 34.7
[2022-04-11 15:41] LABS: Alanine Aminotransferase 34 IU/L (<35); Albumin 4.6 g/dL (3.5-5.0); Albumin Globulin Ratio 1.3 (1.0-2.8); Alkaline Phosphatase 103 U/L (38-126); Aspartate Aminotransferase 30 IU/L (14-36); BUN Creatinine Ratio 28.3 (6-22); Bilirubin Total 0.3 mg/dL (0.2-1.3); Bilirubin Unconjugated 0.3 mg/dL (0.0-1.1); Blood Urea Nitrogen 13 mg/dL (7-17); Cholesterol 192 mg/dL (140-199); Estimated Glomerular Filt Rate > 60 mL/min (>60); Globulin 3.5 g/dL (1.7-4.1); HDL Cholesterol 73 mg/dL (40-60); HEMOLYSIS < 15 (0-50); LDL Cholesterol Calculated 88 mg/dL (<100); Total Protein 8.1 g/dL (6.3-8.2); Triglycerides 156 mg/dL (35-150)
[2022-04-11 16:30] LABS: Vitamin B12 671 pg/mL (239-931)
== END ==
PROVIDERS: PCP Student in an Organized Health Care Education/Training Program; Referring Provider Student in an Organized Health Care Education/Training Program; Visit Provider Student in an Organized Health Care Education/Training Program
DX: E11.9 Type 2 diabetes mellitus without complications (principal); F10.21 Alcohol dependence, in remission; K70.31 Alcoholic cirrhosis of liver with ascites; Z79.899 Other long term (current) drug therapy; E11.69 Type 2 diabetes mellitus with other specified complication; E78.5 Hyperlipidemia, unspecified
CPT/HCPCS: 36415; 80061; 80076; 82565; 82607; 83036; 84520

== ENCOUNTER → 2022-05-19 09:50 | Outpatient (CLI) | payer OTHER, MEDICAID, SELFPAY ==
[2021-08-18 11:59] VITALS: BMI 34.7
--- NOTE | 2022-05-19 09:53 | DI.US.S_ITS ---
PROCEDURE: US PELVIC COMPLETE INDICATIONS: Postmenopausal bleeding TECHNIQUE: Real-time scanning was performed of the pelvic organs, with image documentation. Additional endovaginal scanning was necessary due to incomplete visualization of the adnexal and endometrial structures by transabdominal scanning. COMPARISON: [facility], , US PELVIC COMPLETE, 12/24/2020, 13:02. FINDINGS: Uterus: Uterus is anteverted and normal in size at 9.0 x 4.4 x 6.3 cm. The myometrium is homogeneous. The endometrium measures 8.8 mm combined thickness. Left sided uterine intramural fibroid measures 3.1 x 2.3 x 2.0 cm. Ovaries: Right ovary measures 4.0 x 2.0 x 2.0 cm, 8.5 cc present 1.6 x 1.8 x 2.1 cm simple cyst. Left ovary is not visualized. No free fluid or adnexal mass. Other: No pathologic free abdominal or pelvic fluid. IMPRESSION: Postmenopausal endometrial thickening at 8.8 mm. Consider endometrial biopsy. Intramural uterine fibroid, 3.1 cm Nonvisualized left ovary Approved by: Bryon Puckett M.D. on 05/19/2022 at 15:20
== END ==
PROVIDERS: PCP Student in an Organized Health Care Education/Training Program; Referring Provider Obstetrics & Gynecology; Visit Provider Obstetrics & Gynecology
DX: N95.0 Postmenopausal bleeding (principal); D25.1 Intramural leiomyoma of uterus; R93.89 Abnormal findings on diagnostic imaging of other specified body structures
CPT/HCPCS: 76830; 76856

== ENCOUNTER → 2022-07-16 11:19 | Outpatient (CLI) | payer OTHER, MEDICAID, SELFPAY ==
[2021-08-18 11:59] VITALS: BMI 34.7
--- NOTE | 2022-07-16 11:20 | DI.RAD.S_ITS ---
PROCEDURE: XR HIP W PEL IF DONE BILAT 2V INDICATIONS: Bilateral hip pain; re-eval hardware TECHNIQUE: Two views of each hip COMPARISON: [facility], CR, XR HIP W PEL IF DONE LT 2V, 08/12/2021, 16:10. FINDINGS: Bones: Bilateral total hip arthroplasty remains in good position. No evidence of hardware failure or loosening Soft tissues: No suspicious soft tissue calcifications or masses. Intrauterine device midline IMPRESSION: Bilateral total hip arthroplasty in good position. No hardware failure or loosening Approved by: Bryon Puckett M.D. on 07/16/2022 at 17:51
== END ==
PROVIDERS: PCP Student in an Organized Health Care Education/Training Program; Referring Provider Student in an Organized Health Care Education/Training Program; Visit Provider Student in an Organized Health Care Education/Training Program
DX: M25.551 Pain in right hip (principal); M25.552 Pain in left hip; G89.28 Other chronic postprocedural pain; Z96.643 Presence of artificial hip joint, bilateral
CPT/HCPCS: 73521

== ENCOUNTER 2022-08-10 13:47 | Emergency (ER) | payer OTHER, MEDICAID, SELFPAY ==
[2021-08-18 11:59] VITALS: BMI 34.7
[2022-08-10] VITALS (12 sets, daily range): BP systolic 141–179; BP diastolic 65–87; PULSE 52–87; RESP 14–19; TEMP 35.6; O2SAT 92–96
[2022-08-10 14:40] LABS: Add Manual Diff / Slide Review NO; Basophils Absolute Auto 100 /uL (0-100); Basophils Percent Auto 0.6 % (0-2); Eosinophils Absolute Auto 100 /uL (0-450); Eosinophils Percent Auto 0.8 % (2-4); Hematocrit 44.6 % (36-46); Hemoglobin 14.9 g/dL (12.0-16.0); Lymphocytes Absolute Auto 2000 /uL (1100-4500); Lymphocytes Percent Auto 18.6 % (25-40); Mean Corpuscular HGB Conc 33.5 % (30-36); Mean Corpuscular Volume 83.5 fL (80-100); Monocytes Absolute Auto 300 /uL (0-900); Monocytes Percent Auto 3.2 % (3-14); Neutrophils Absolute Auto 8100 /uL (1500-7000); Neutrophils Percent Auto 76.8 % (50-75); Platelet Count 232 X10^3/uL (150-400); Red Blood Cell Count 5.34 X10^6/uL (4.0-5.2); Red Cell Distribution Width 13.9 % (11.6-14.8); White Blood Cell Count 10.5 X10^3/uL (4.5-11.0)
[2022-08-10] MEDS: ONDANSETRON 4 MG/2 ML INJ IV ×2 (14:51→18:00)
[2022-08-10 14:52] LABS: Alanine Aminotransferase 34 IU/L (<35); Albumin 4.9 g/dL (3.5-5.0); Albumin Globulin Ratio 1.3 (1.0-2.8); Alkaline Phosphatase 72 U/L (38-126); Aspartate Aminotransferase 31 IU/L (14-36); BUN Creatinine Ratio 17.8 (6-22); Bilirubin Total 0.3 mg/dL (0.2-1.3); Blood Urea Nitrogen 8 mg/dL (7-17); Calcium 10.3 mg/dL (8.4-10.2); Carbon Dioxide 24 mmol/L (22-32); Chloride 98 mmol/L (98-107); Estimated Glomerular Filt Rate > 60 mL/min (>60); Globulin 3.9 g/dL (1.7-4.1); Glucose 181 mg/dL (70-100); HEMOLYSIS < 15 (0-50); Lipase 98 U/L (23-300); Potassium 4.2 mmol/L (3.4-5.1); Sodium 136 mmol/L (137-145); Total Protein 8.8 g/dL (6.3-8.2)
--- NOTE | 2022-08-10 14:55 | DI.US.S_ITS ---
PROCEDURE: US ABDOMEN COMPLETE INDICATIONS: RUQ PAIN; N/V; HX CIRRHOSIS TECHNIQUE: Real-time scanning was performed of the abdominal and retroperitoneal organs, with image documentation. COMPARISON: [facility], CT, CT ABDOMEN WO/W CON, 04/11/2021, 8:49. [facility], US, US ABDOMEN COMPLETE, 02/26/2021, 11:05. FINDINGS: Liver: The liver is enlarged and demonstrates a nodular contour and coarsening of the echotexture. There is an echogenic nonvascular nodule seen that measures 11 mm within the posterior right lobe of the liver. Gallbladder: Study nonobstructing gallstones are seen. No findings of gallstones or sludge are seen. The gallbladder wall is not thickened, measuring 3 mm or less. No specific pericholecystic fluid is seen. The sonographic Short sign is positive. Biliary ducts: Intrahepatic bile ducts are non-dilated. Extrahepatic bile duct caliber measures 4 mm. Normal is 6-7 mm or less in diameter, or 10 mm or less post-cholecystectomy. Pancreas: Visualized portions of the pancreas are sonographically normal. Spleen: Spleen is normal in size and homogeneous in echotexture. Kidneys: Kidneys are normal in size and echotexture. Right kidney measures 11.2 cm long; left kidney measures 12.6 cm long. No hydronephrosis or nephrolithiasis. No solid masses. Aorta: Visualized aorta is normal in caliber at less than 3 cm. Iliacs: Proximal common iliac arteries are normal in caliber at less than 2.5 cm. IVC: Intrahepatic inferior vena cava is patent. Miscellaneous: No free abdominal fluid. IMPRESSION: Gallstones are seen, with a positive sonographic Short sign. There is moderate suspicion for cholecystitis. Normal liver, which is consistent with the given clinical history of cirrhosis. Additional findings: Presumed liver hemangioma. Dictated by: Irwin Mejia M.D. on 08/10/2022 at 16:02 Approved by: Irwin Mejia M.D. on 08/10/2022 at 16:04
[2022-08-10 15:56] LABS: Bacteria Urine Occasional (0-1); Culture Indicated Urine Specimen Cultured; RBC Urine 1-5/HPF (0-5/HPF); Squamous Epithelial Cell Urine 1-5 /HPF (0-5/HPF); Transitional Epi Cells Urine 1-5/HPF (0-5/HPF); WBC Urine 1-5/HPF (0-5/HPF)
--- NOTE | 2022-08-10 16:01 | ED_ITS ---
HPI - Abdominal Pain <ELIANA FarmerP - Last Filed: 08/10/22 19:16> General Chief Complaint: Abdominal Pain Stated Complaint: cirros of naun,ch pn, pressur on up rt bernarda, thro up Time Seen by Provider: 08/10/22 14:55 Mode of arrival: Ambulatory History of Present Illness HPI narrative: This is a 52-year-old female with history alcoholism, GERD, bipolar depression, venous stasis lower extremities, cirrhosis, anxiety and depression, type 2 diabetes,, postmenopausal bleeding with an IUD in place ongoing who presents to the emergency department today for right upper quadrant pain and vomiting for the last 3 days. She states that she has epigastric and right upper quadrant pain, it is caused her to have no appetite, feel bloated and gassy. States that her stool smells like bile. She denies history of abdominal surgeries, states that she takes 20 mg of omeprazole at night. Denies any blood in her stool, states that due to the metformin her stools have been loose. States that she has not had a bowel movement in a few days. States that she was able to drink some fruit juice this morning that was blunted but she has had ongoing nausea all day today she denies urinary frequency, urgency, flank pain or dysuria. Related Data Home Medications Medication Instructions Recorded Confirmed aspirin 81 mg tablet,delayed 81 mg PO DAILY 12/17/19 07/16/22 release (Adult Low Dose Aspirin) milk thistle 150 mg capsule 300 mg PO DAILY 08/17/21 07/16/22 sertraline 50 mg tablet 150 mg PO DAILY 05/20/22 07/16/22 Previous Rx's Medication Instructions Recorded blood-glucose meter (True Metrix #1 ea 03/07/20 Glucose Meter) multivitamin with folic acid 400 1 tab PO DAILY #30 tabs 06/05/21 mcg tablet (Tab-A-Feroz) hydroxyzine HCl 50 mg tablet 50 mg PO TID PRN anxiety #90 tabs 06/18/21 lidocaine 5 % topical patch 1 patch topical DAILY #1 ea 08/29/21 asenapine maleate 5 mg sublingual 10 mg sublingual BEDTIME 30 days 09/10/21 tablet (Saphris) #60 tabs omeprazole 20 mg capsule,delayed 20 mg PO DAILY #90 caps 11/26/21 release levothyroxine 200 mcg tablet 200 mcg PO DAILY #90 tabs 02/24/22 liothyronine 5 mcg tablet 10 mcg PO DAILY #180 tabs 02/24/22 metformin 1,000 mg tablet,extended 1,000 mg PO BID #180 tabs 03/19/22 release 24hr triamcinolone acetonide 0.1 % 1 applic topical BID PRN rash #30 03/19/22 topical cream grams norethindrone acetate 5 mg tablet 5 mg PO DAILY #50 tabs 04/02/22 pravastatin 20 mg tablet 20 mg PO BEDTIME #90 tabs 05/06/22 nadolol 40 mg tablet 40 mg PO DAILY #90 tabs 07/09/22 spironolactone 50 mg tablet 50 mg PO DAILY #90 tabs 07/16/22 cephalexin 500 mg capsule 500 mg PO TID 8 days #24 caps 08/10/22 cephalexin 500 mg capsule 500 mg PO TID 8 days #24 caps 08/10/22 hydrocodone 5 mg-acetaminophen 325 1 tab PO TID PRN pain #14 tabs 08/10/22 mg tablet metronidazole 500 mg tablet 500 mg PO BID 8 days #16 tabs 08/10/22 metronidazole 500 mg tablet 500 mg PO TID 8 days #24 tabs 08/10/22 ondansetron 4 mg disintegrating 4 mg PO Q8H PRN nausea and 08/10/22 tablet vomiting #14 tabs ondansetron 4 mg disintegrating 4 mg PO Q8H PRN nausea and 08/10/22 tablet vomiting #30 tabs Allergies Allergy/AdvReac Type Severity Reaction Status Date / Time Penicillins [PENICILLINS] Allergy Severe Swelling Verified 08/10/22 14:04 of Lip/Tongue/Throat Sulfa (Sulfonamide Allergy Intermediate Rash Verified 08/10/22 14:04 Antibiotics) [SULFA (SULFONAMIDE ANTIBIOTICS)] sulfamethoxazole Allergy Intermediate Rash Verified 08/10/22 14:04 [From Bactrim] trimethoprim [From Bactrim] Allergy Intermediate Rash Verified 08/10/22 14:04 Review of Systems <DAISY Farmer - Last Filed: 08/10/22 19:16> Review of Systems ROS Unobtainable: All systems reviewed & are unremarkable except as noted in HPI and below Patient History <DAISY Farmer - Last Filed: 08/10/22 19:16> Medical History Alcohol withdrawal seizure Avascular necrosis of bone of hip Bipolar disorder Chicken pox Chlamydia (~1988) Cirrhosis Colon polyp COPD (chronic obstructive pulmonary disease) Delirium tremens Depression Endometrial thickening on ultrasound Esophageal stricture Esophageal varices Hayfever Hemorrhoids Hypothyroidism (1997) Irregular periods/menstrual cycles MRSA infection Pancytopenia Papillary adenocarcinoma of thyroid Seizures Shoulder pain Substance abuse Surgical History Anesthesia complication History of adenoidectomy History of bunionectomy History of dilation and curettage History of esophageal surgery (2016) History of left hip replacement (08/2017) History of placement of ear tubes History of right hip replacement (11/2017) History of tonsillectomy History of total thyroidectomy (1997) Family History Father No problems noted. Mother Depression Hyperlipidemia Thyroid disorder Mental health problem Brother No problems noted. Grandfather Lung cancer Cancer Grandmother Thyroid disorder Potassium disorder Hyperlipidemia Hypertension Grandfather No problems noted. Grandmother No problems noted. Family/Other No problems noted. Social History household members: significant other Smoking Status: Former smoker alcohol intake: current substance use type: does not use eating out: rarely or never Type(s) of exercise: none Smoking Status: Former smoker tobacco type: vaping alcohol intake frequency: 3 or more drinks per day Alcohol type: hard liquor Substance Use Type: marijuana Exam <DAISY Farmer - Last Filed: 08/10/22 19:16> Narrative Exam Narrative: Reviewed vitals signs and nursing notes. General: cooperative, in no acute distress, well groomed, afebrile HEENT: symmetrical facial expressions, moist mucous membranes, neck is supple CV: regular rate and rhythm, warm extremities, no dependent edema Respiratory: Without abnormal breath sounds, normal work of breathing, without tachypnea, hypoxia. GI: abdomen soft tender to palpation in the right upper quadrant, positive Short sign, mildly distended, patient able to pass gas but not currently, no fluid wave or pitting edema, without masses, rebound tenderness or CVA tenderness bilaterally. MSK: moves all extremities, neurovascularly intact, no weakness, normal tone Skin: brisk capillary refill, without rash or wound Neuro: normal speech and cognition, A&O x3, ambulatory, clear speech Initial Vital Signs Initial Vital Signs: Vital Signs Temperature 96.0 F L 08/10/22 13:59 Pulse Rate 66 08/10/22 13:59 Respiratory Rate 18 08/10/22 13:59 Blood Pressure 179/87 H 08/10/22 13:59 Pulse Oximetry 96 08/10/22 13:59 Oxygen Delivery Method Room Air 08/10/22 13:59 <Nellie Vazquez DO - Last Filed: 08/11/22 19:03> Initial Vital Signs Initial Vital Signs: Vital Signs Temperature 96.0 F L 08/10/22 13:59 Pulse Rate 66 08/10/22 13:59 Respiratory Rate 18 08/10/22 13:59 Blood Pressure 179/87 H 08/10/22 13:59 Pulse Oximetry 96 08/10/22 13:59 Oxygen Delivery Method Room Air 08/10/22 13:59 Course <DAISY Farmer - Last Filed: 08/10/22 19:16> Orders Ordered: Discontinued Medications Hydrocodone Bitart/Acetaminophen (Hydrocodone/Acet 5/325 Tablet) 1 tab PO NOW ONE Stop: 08/10/22 17:59 Last Admin: 08/10/22 18:11 Dose: 1 tab Documented By: PASTORA Hydromorphone HCl (Hydromorphone 0.5 Mg Inj) 0.5 mg IV NOW ONE Stop: 08/10/22 16:00 Last Admin: 08/10/22 16:16 Dose: 0.5 mg Documented By: PASTORA Sodium Chloride (Normal Saline 0.9%) 1,000 mls @ 1,000 mls/hr IV BOLUS ONE Stop: 08/10/22 16:58 Last Infusion: 08/10/22 17:44 Dose: 0 mls/hr Documented By: Admin: 08/10/22 16:15 Dose: 1,000 mls/hr Documented By: PASTORA Ceftriaxone Sodium 1,000 mg/ (Sodium Chloride) 100 mls @ 200 mls/hr IV NOW ONE Stop: 08/10/22 17:51 Last Infusion: 08/10/22 18:38 Dose: 0 mls/hr Documented By: Admin: 08/10/22 17:59 Dose: 200 mls/hr Documented By: PASTORA Metronidazole (Flagyl) 500 mg in 100 mls @ 100 mls/hr IV NOW ONE Stop: 08/10/22 18:51 Last Admin: 08/10/22 18:09 Dose: Not Given Documented By: APSTORA Ketorolac Tromethamine (Ketorolac 30 Mg/Ml Vial) 15 mg IV NOW ONE Stop: 08/10/22 16:00 Last Admin: 08/10/22 16:15 Dose: 15 mg Documented By: PASTORA Metronidazole (Metronidazole 500 Mg Tablet) 500 mg PO NOW ONE Stop: 08/10/22 17:59 Last Admin: 08/10/22 18:11 Dose: 500 mg Documented By: PASTORA Ondansetron HCl (Ondansetron 4 Mg Odt) 4 mg PO NOW PRN PRN Reason: Nausea And Vomiting Ondansetron HCl (Ondansetron 4 Mg/2 Ml Inj) 4 mg IV NOW PRN PRN Reason: Nausea And Vomiting Last Admin: 08/10/22 18:00 Dose: 4 mg Documented By: Admin: 08/10/22 14:51 Dose: 4 mg Documented By: PASTORA Ondansetron HCl (Ondansetron 4 Mg/2 Ml Inj) 4 mg IV NOW ONE Stop: 08/10/22 16:00 Last Admin: 08/10/22 16:16 Dose: Not Given Documented By: PASTORA Pantoprazole Sodium (Pantoprazole 40 Mg Vial) 40 mg IV NOW ONE Stop: 08/10/22 16:04 Last Admin: 08/10/22 16:16 Dose: 40 mg Documented By: PASTORA Vital Signs Vital signs: Vital Signs - 8 hr 08/10/22 13:59 08/10/22 14:38 08/10/22 14:39 Temperature 96.0 F L Pulse Rate 66 55 L Respiratory Rate 18 Blood Pressure 179/87 H 152/79 H Pulse Oximetry 96 94 Oxygen Delivery Method Room Air 08/10/22 14:39 08/10/22 15:00 08/10/22 15:00 Temperature Pulse Rate 54 L 56 L Respiratory Rate 19 15 Blood Pressure 163/81 H Pulse Oximetry 92 93 Oxygen Delivery Method 08/10/22 15:30 08/10/22 15:30 08/10/22 16:00 Temperature Pulse Rate 57 L Respiratory Rate 14 Blood Pressure 165/78 H 159/76 H Pulse Oximetry 93 Oxygen Delivery Method 08/10/22 16:00 08/10/22 16:29 08/10/22 16:30 Temperature Pulse Rate 54 L 57 L Respiratory Rate 16 Blood Pressure 141/65 H Pulse Oximetry 94 96 Oxygen Delivery Method Room Air 08/10/22 16:30 08/10/22 17:00 08/10/22 17:00 Temperature Pulse Rate 54 L 53 L Respiratory Rate 14 18 Blood Pressure 148/71 H Pulse Oximetry 96 95 Oxygen Delivery Method 08/10/22 17:30 08/10/22 17:30 08/10/22 18:00 Temperature Pulse Rate 56 L Respiratory Rate Blood Pressure 156/79 H 147/70 H Pulse Oximetry 93 Oxygen Delivery Method 08/10/22 18:00 08/10/22 18:30 08/10/22 18:30 Temperature Pulse Rate 52 L 87 Respiratory Rate 14 Blood Pressure 142/72 H Pulse Oximetry 94 94 Oxygen Delivery Method <Nellie Vazquez, - Last Filed: 08/11/22 19:03> Orders Ordered: Discontinued Medications Hydrocodone Bitart/Acetaminophen (Hydrocodone/Acet 5/325 Tablet) 1 tab PO NOW ONE Stop: 08/10/22 17:59 Last Admin: 08/10/22 18:11 Dose: 1 tab Documented By: PASTORA Hydromorphone HCl (Hydromorphone 0.5 Mg Inj) 0.5 mg IV NOW ONE Stop: 08/10/22 16:00 Last Admin: 08/10/22 16:16 Dose: 0.5 mg Documented By: PASTORA Sodium Chloride (Normal Saline 0.9%) 1,000 mls @ 1,000 mls/hr IV BOLUS ONE Stop: 08/10/22 16:58 Last Infusion: 08/10/22 17:44 Dose: 0 mls/hr Documented By: Admin: 08/10/22 16:15 Dose: 1,000 mls/hr Documented By: PASTORA Ceftriaxone Sodium 1,000 mg/ (Sodium Chloride) 100 mls @ 200 mls/hr IV NOW ONE Stop: 08/10/22 17:51 Last Infusion: 08/10/22 18:38 Dose: 0 mls/hr Documented By: Admin: 08/10/22 17:59 Dose: 200 mls/hr Documented By: PASTORA Metronidazole (Flagyl) 500 mg in 100 mls @ 100 mls/hr IV NOW ONE Stop: 08/10/22 18:51 Last Admin: 08/10/22 18:09 Dose: Not Given Documented By: PASTORA Ketorolac Tromethamine (Ketorolac 30 Mg/Ml Vial) 15 mg IV NOW ONE Stop: 08/10/22 16:00 Last Admin: 08/10/22 16:15 Dose: 15 mg Documented By: PASTORA Metronidazole (Metronidazole 500 Mg Tablet) 500 mg PO NOW ONE Stop: 08/10/22 17:59 Last Admin: 08/10/22 18:11 Dose: 500 mg Documented By: PASTORA Ondansetron HCl (Ondansetron 4 Mg Odt) 4 mg PO NOW PRN PRN Reason: Nausea And Vomiting Ondansetron HCl (Ondansetron 4 Mg/2 Ml Inj) 4 mg IV NOW PRN PRN Reason: Nausea And Vomiting Last Admin: 08/10/22 18:00 Dose: 4 mg Documented By: Admin: 08/10/22 14:51 Dose: 4 mg Documented By: PASTORA Ondansetron HCl (Ondansetron 4 Mg/2 Ml Inj) 4 mg IV NOW ONE Stop: 08/10/22 16:00 Last Admin: 08/10/22 16:16 Dose: Not Given Documented By: PASTORA Pantoprazole Sodium (Pantoprazole 40 Mg Vial) 40 mg IV NOW ONE Stop: 08/10/22 16:04 Last Admin: 08/10/22 16:16 Dose: 40 mg Documented By: PASTORA Vital Signs Vital signs: Vital Signs - 8 hr 08/10/22 13:59 08/10/22 14:38 08/10/22 14:39 Temperature 96.0 F L Pulse Rate 66 55 L Respiratory Rate 18 Blood Pressure 179/87 H 152/79 H Pulse Oximetry 96 94 Oxygen Delivery Method Room Air 08/10/22 14:39 08/10/22 15:00 08/10/22 15:00 Temperature Pulse Rate 54 L 56 L Respiratory Rate 19 15 Blood Pressure 163/81 H Pulse Oximetry 92 93 Oxygen Delivery Method 08/10/22 15:30 08/10/22 15:30 08/10/22 16:00 Temperature Pulse Rate 57 L Respiratory Rate 14 Blood Pressure 165/78 H 159/76 H Pulse Oximetry 93 Oxygen Delivery Method 08/10/22 16:00 08/10/22 16:29 08/10/22 16:30 Temperature Pulse Rate 54 L 57 L Respiratory Rate 16 Blood Pressure 141/65 H Pulse Oximetry 94 96 Oxygen Delivery Method Room Air 08/10/22 16:30 08/10/22 17:00 08/10/22 17:00 Temperature Pulse Rate 54 L 53 L Respiratory Rate 14 18 Blood Pressure 148/71 H Pulse Oximetry 96 95 Oxygen Delivery Method 08/10/22 17:30 08/10/22 17:30 08/10/22 18:00 Temperature Pulse Rate 56 L Respiratory Rate Blood Pressure 156/79 H 147/70 H Pulse Oximetry 93 Oxygen Delivery Method 08/10/22 18:00 08/10/22 18:30 08/10/22 18:30 Temperature Pulse Rate 52 L 87 Respiratory Rate 14 Blood Pressure 142/72 H Pulse Oximetry 94 94 Oxygen Delivery Method MDM - Abdominal Pain <DAISY Farmer - Last Filed: 08/10/22 19:16> Lab Data 08/10/22 14:32 08/10/22 14:32 Labs: Lab Results 08/10/22 08/10/22 08/10/22 Range/Units 14:22 14:22 14:22 WBC (4.5-11.0) X10^3/uL RBC (4.0-5.2) X10^6/uL Hgb (12.0-16.0) g/dL Hct (36-46) % MCV (80-100) fL MCH (26-34) PG MCHC (30-36) % RDW (11.6-14.8) % Plt Count (150-400) X10^3/uL Neut % (Auto) (50-75) % Lymph % (Auto) (25-40) % [place] % (Auto) (3-14) % Eos % (Auto) (2-4) % Baso % (Auto) (0-2) % Neut # (Auto) (5247-3534) /uL Lymph # (Auto) (4521-8316) /uL [place] # (Auto) (0-900) /uL Eos # (Auto) (0-450) /uL Baso # (Auto) (0-100) /uL Sodium (137-145) mmol/L Potassium (3.4-5.1) mmol/L Chloride (98-107) mmol/L Carbon Dioxide (22-32) mmol/L BUN (7-17) mg/dL Creatinine (0.52-1.04) mg/dL Estimated GFR (>60) mL/min BUN/Creatinine Ratio (6-22) Glucose (70-100) mg/dL Lactate 3.2 H (0.7-2.1) mmol/L Calcium (8.4-10.2) mg/dL Magnesium 1.8 (1.6-2.3) mg/dL Total Bilirubin (0.2-1.3) mg/dL AST (14-36) IU/L ALT (<35) IU/L Alkaline Phosphatase (38-126) U/L C-Reactive Protein 0.7 (<1.0) mg/dL Total Protein (6.3-8.2) g/dL Albumin (3.5-5.0) g/dL Globulin (1.7-4.1) g/dL Albumin/Globulin Ratio (1.0-2.8) Lipase (23-300) U/L Urine RBC (0-5/HPF) Urine WBC (0-5/HPF) Ur Squamous Epith Cells (0-5/HPF) Ur Transition Epith Cell (0-5/HPF) Urine Bacteria (None) Ur Culture Indicated? 08/10/22 08/10/22 08/10/22 Range/Units 14:32 14:32 15:15 WBC 10.5 (4.5-11.0) X10^3/uL RBC 5.34 H (4.0-5.2) X10^6/uL Hgb 14.9 (12.0-16.0) g/dL Hct 44.6 (36-46) % MCV 83.5 (80-100) fL MCH 28.0 (26-34) PG MCHC 33.5 (30-36) % RDW 13.9 (11.6-14.8) % Plt Count 232 (150-400) X10^3/uL Neut % (Auto) 76.8 H (50-75) % Lymph % (Auto) 18.6 L (25-40) % [place] % (Auto) 3.2 (3-14) % Eos % (Auto) 0.8 L (2-4) % Baso % (Auto) 0.6 (0-2) % Neut # (Auto) 8100 H (0080-5865) /uL Lymph # (Auto) 2000 (0935-9753) /uL [place] # (Auto) 300 (0-900) /uL Eos # (Auto) 100 (0-450) /uL Baso # (Auto) 100 (0-100) /uL Sodium 136 L (137-145) mmol/L Potassium 4.2 (3.4-5.1) mmol/L Chloride 98 (98-107) mmol/L Carbon Dioxide 24 (22-32) mmol/L BUN 8 (7-17) mg/dL Creatinine 0.45 L (0.52-1.04) mg/dL Estimated GFR > 60 (>60) mL/min BUN/Creatinine Ratio 17.8 (6-22) Glucose 181 H (70-100) mg/dL Lactate (0.7-2.1) mmol/L Calcium 10.3 H (8.4-10.2) mg/dL Magnesium (1.6-2.3) mg/dL Total Bilirubin 0.3 (0.2-1.3) mg/dL AST 31 (14-36) IU/L ALT 34 (<35) IU/L Alkaline Phosphatase 72 (38-126) U/L C-Reactive Protein (<1.0) mg/dL Total Protein 8.8 H (6.3-8.2) g/dL Albumin 4.9 (3.5-5.0) g/dL Globulin 3.9 (1.7-4.1) g/dL Albumin/Globulin Ratio 1.3 (1.0-2.8) Lipase 98 (23-300) U/L Urine RBC 1-5/hpf (0-5/HPF) Urine WBC 1-5/hpf (0-5/HPF) Ur Squamous Epith Cells 1-5 /hpf (0-5/HPF) Ur Transition Epith Cell 1-5/hpf (0-5/HPF) Urine Bacteria Occasional (0-1) (None) Ur Culture Indicated? Specimen cultured 08/10/22 Range/Units 18:20 WBC (4.5-11.0) X10^3/uL RBC (4.0-5.2) X10^6/uL Hgb (12.0-16.0) g/dL Hct (36-46) % MCV (80-100) fL MCH (26-34) PG MCHC (30-36) % RDW (11.6-14.8) % Plt Count (150-400) X10^3/uL Neut % (Auto) (50-75) % Lymph % (Auto) (25-40) % [place] % (Auto) (3-14) % Eos % (Auto) (2-4) % Baso % (Auto) (0-2) % Neut # (Auto) (5915-5994) /uL Lymph # (Auto) (0531-9933) /uL [place] # (Auto) (0-900) /uL Eos # (Auto) (0-450) /uL Baso # (Auto) (0-100) /uL Sodium (137-145) mmol/L Potassium (3.4-5.1) mmol/L Chloride (98-107) mmol/L Carbon Dioxide (22-32) mmol/L BUN (7-17) mg/dL Creatinine (0.52-1.04) mg/dL Estimated GFR (>60) mL/min BUN/Creatinine Ratio (6-22) Glucose (70-100) mg/dL Lactate 1.5 (0.7-2.1) mmol/L Calcium (8.4-10.2) mg/dL Magnesium (1.6-2.3) mg/dL Total Bilirubin (0.2-1.3) mg/dL AST (14-36) IU/L ALT (<35) IU/L Alkaline Phosphatase (38-126) U/L C-Reactive Protein (<1.0) mg/dL Total Protein (6.3-8.2) g/dL Albumin (3.5-5.0) g/dL Globulin (1.7-4.1) g/dL Albumin/Globulin Ratio (1.0-2.8) Lipase (23-300) U/L Urine RBC (0-5/HPF) Urine WBC (0-5/HPF) Ur Squamous Epith Cells (0-5/HPF) Ur Transition Epith Cell (0-5/HPF) Urine Bacteria (None) Ur Culture Indicated? Point of care testing: Point of Care Testing Test Results Negative Urine Dip Bedside Urine Glucose Negative Bedside Urine Bilirubin - Negative Bedside Urine Ketone - Negative Urine Specific [place] 1.010 Bedside Urine Occult Blood - Negative Bedside Urine pH 6.5 Bedside Urine Protein - Negative Bedside Urine Urobilinogen - Negative Bedside Urine Nitrite - Negative Bedside Urine Leukocytes + 70 Esterase Imaging Data US - abdomen: Radiologist's Impression: PROCEDURE:? US ABDOMEN COMPLETE ? INDICATIONS:? RUQ PAIN; N/V; HX CIRRHOSIS ? TECHNIQUE:? Real-time scanning was performed of the abdominal and retroperitoneal organs, with image documentation.? ? COMPARISON:? [facility], CT, CT ABDOMEN WO/W CON, 04/11/2021, 8:49.? [facility], US, US ABDOMEN COMPLETE, 02/26/2021, 11:05. ? FINDINGS:? ? Liver:? The liver is enlarged and demonstrates a nodular contour and coarsening of the echotexture.? There is an echogenic nonvascular nodule seen that measures 11 mm within the posterior right lobe of the liver. ? Gallbladder:? Study nonobstructing gallstones are seen. No findings of gallstones or sludge are seen.? The gallbladder wall is not thickened, measuring 3 mm or less.? No specific pericholecystic fluid is seen.? The sonographic Short sign is positive.? ? Biliary ducts:? Intrahepatic bile ducts are non-dilated.? Extrahepatic bile duct caliber measures 4 mm.? Normal is 6-7 mm or less in diameter, or 10 mm or less post-cholecystectomy.? ? Pancreas:? Visualized portions of the pancreas are sonographically normal.? ? Spleen:? Spleen is normal in size and homogeneous in echotexture.? ? Kidneys:? Kidneys are normal in size and echotexture.? Right kidney measures 11.2 cm long; left kidney measures 12.6 cm long.? No hydronephrosis or nephrolithiasis.? No solid masses.? ? Aorta:? Visualized aorta is normal in caliber at less than 3 cm.? ? Iliacs:? Proximal common iliac arteries are normal in caliber at less than 2.5 cm.? ? IVC:? Intrahepatic inferior vena cava is patent.? ? Miscellaneous:? No free abdominal fluid.? ? ? IMPRESSION:? Gallstones are seen, with a positive sonographic Short sign.? There is moderate suspicion for cholecystitis. ? Normal liver, which is consistent with the given clinical history of cirrhosis. ? ? Additional findings:? Presumed liver hemangioma. ? Dictated by: Irwin Mejia M.D. on 08/10/2022 at 16:02 ? ? Approved by: Irwin Mejia M.D. on 08/10/2022 at 16:04 ? MDM Narrative Medical decision making narrative: Chief Complaint: Right upper quadrant pain Independent historian: Patient Differential diagnoses include but are not limited to: Acute viral process, gastritis, gastric ulcer, biliary disease, gastroenteritis, GERD, bowel obstruction, perforated viscus, appendicitis, colitis, diverticulitis, IBD/IBS, intestinal ischemia, obstructive uropathy, acute cystitis, pyelonephritis, acute hepatitis, pancreatitis Doubt atypical ACS. No peritoneal signs on abdominal exam. Patient remains p.o. tolerant. Serial abdominal exam without increase in abdominal pain. Extensive conversation about ER return precautions and need for close follow-up. I have independently reviewed the patient's vital signs and nursing notes as well as prior records if available. Pertinent lab findings reviewed: No leukocytosis or anemia, no significant electrolyte abnormalities, UA and microscopy without significant abnormality, urine bacteria is occasional and likely contaminant. Pertinent Imaging reviewed: Abdominal ultrasound Course of care: Ordered pain medication and bolus and Zofran and Protonix for tenderness or epigastrium on palpation, right upper quadrant pain, ultrasound came into the room and is in process at this time. Consultation with Dr. Zen bernal who will follow-up with patient as an outpatient. Discussed discharge home versus staying in the hospital for pain control and nausea vomiting. Patient wishes to go home and see if she feels better with antibiotics and return if she gets worse. Since she has history of allergy to sulfa, penicillin, and Bactrim, she was treated with cephalexin and Flagyl as an outpatient, given ceftriaxone here in the emergency department with Flagyl x1. She was counseled on avoiding alcohol. Her abdominal ultrasound shows gallstones with a positive sonographic Short's sign, moderate suspicion for cholecystitis. Presumed liver hemangioma. She is p.o. tolerant, given prescriptions of Zofran for nausea, information about a low-fat and gallstone diet, pain medication of hydrocodone was sent to [facility], she understands to follow up with her primary care provider and or follow-up with GI in the next 1-2 weeks as needed. She will return to the emergency department if she has worsening symptoms, today she appears quite well, lab work overall is fairly unremarkable without leukocytosis or elevated liver enzymes today. Social considerations that may affect disposition: none Questions are addressed and there is agreement with the plan and for follow-up. Patient is appropriate for outpatient management. MIPS: This encounter doesn't have any diagnosis' associated with MIPS criteria. <Nellie Vazquez, - Last Filed: 08/11/22 19:03> Lab Data Labs: Lab Results 08/10/22 08/10/22 08/10/22 Range/Units 14:22 14:22 14:22 WBC (4.5-11.0) X10^3/uL RBC (4.0-5.2) X10^6/uL Hgb (12.0-16.0) g/dL Hct (36-46) % MCV (80-100) fL MCH (26-34) PG MCHC (30-36) % RDW (11.6-14.8) % Plt Count (150-400) X10^3/uL Neut % (Auto) (50-75) % Lymph % (Auto) (25-40) % [place] % (Auto) (3-14) % Eos % (Auto) (2-4) % Baso % (Auto) (0-2) % Neut # (Auto) (2417-3997) /uL Lymph # (Auto) (8099-2484) /uL [place] # (Auto) (0-900) /uL Eos # (Auto) (0-450) /uL Baso # (Auto) (0-100) /uL Sodium (137-145) mmol/L Potassium (3.4-5.1) mmol/L Chloride (98-107) mmol/L Carbon Dioxide (22-32) mmol/L BUN (7-17) mg/dL Creatinine (0.52-1.04) mg/dL Estimated GFR (>60) mL/min BUN/Creatinine Ratio (6-22) Glucose (70-100) mg/dL Lactate 3.2 H (0.7-2.1) mmol/L Calcium (8.4-10.2) mg/dL Magnesium 1.8 (1.6-2.3) mg/dL Total Bilirubin (0.2-1.3) mg/dL AST (14-36) IU/L ALT (<35) IU/L Alkaline Phosphatase (38-126) U/L C-Reactive Protein 0.7 (<1.0) mg/dL Total Protein (6.3-8.2) g/dL Albumin (3.5-5.0) g/dL Globulin (1.7-4.1) g/dL Albumin/Globulin Ratio (1.0-2.8) Lipase (23-300) U/L Urine RBC (0-5/HPF) Urine WBC (0-5/HPF) Ur Squamous Epith Cells (0-5/HPF) Ur Transition Epith Cell (0-5/HPF) Urine Bacteria (None) Ur Culture Indicated? 08/10/22 08/10/22 08/10/22 Range/Units 14:32 14:32 15:15 WBC 10.5 (4.5-11.0) X10^3/uL RBC 5.34 H (4.0-5.2) X10^6/uL Hgb 14.9 (12.0-16.0) g/dL Hct 44.6 (36-46) % MCV 83.5 (80-100) fL MCH 28.0 (26-34) PG MCHC 33.5 (30-36) % RDW 13.9 (11.6-14.8) % Plt Count 232 (150-400) X10^3/uL Neut % (Auto) 76.8 H (50-75) % Lymph % (Auto) 18.6 L (25-40) % [place] % (Auto) 3.2 (3-14) % Eos % (Auto) 0.8 L (2-4) % Baso % (Auto) 0.6 (0-2) % Neut # (Auto) 8100 H (4220-4922) /uL Lymph # (Auto) 2000 (8722-5062) /uL [place] # (Auto) 300 (0-900) /uL Eos # (Auto) 100 (0-450) /uL Baso # (Auto) 100 (0-100) /uL Sodium 136 L (137-145) mmol/L Potassium 4.2 (3.4-5.1) mmol/L Chloride 98 (98-107) mmol/L Carbon Dioxide 24 (22-32) mmol/L BUN 8 (7-17) mg/dL Creatinine 0.45 L (0.52-1.04) mg/dL Estimated GFR > 60 (>60) mL/min BUN/Creatinine Ratio 17.8 (6-22) Glucose 181 H (70-100) mg/dL Lactate (0.7-2.1) mmol/L Calcium 10.3 H (8.4-10.2) mg/dL Magnesium (1.6-2.3) mg/dL Total Bilirubin 0.3 (0.2-1.3) mg/dL AST 31 (14-36) IU/L ALT 34 (<35) IU/L Alkaline Phosphatase 72 (38-126) U/L C-Reactive Protein (<1.0) mg/dL Total Protein 8.8 H (6.3-8.2) g/dL Albumin 4.9 (3.5-5.0) g/dL Globulin 3.9 (1.7-4.1) g/dL Albumin/Globulin Ratio 1.3 (1.0-2.8) Lipase 98 (23-300) U/L Urine RBC 1-5/hpf (0-5/HPF) Urine WBC 1-5/hpf (0-5/HPF) Ur Squamous Epith Cells 1-5 /hpf (0-5/HPF) Ur Transition Epith Cell 1-5/hpf (0-5/HPF) Urine Bacteria Occasional (0-1) (None) Ur Culture Indicated? Specimen cultured 08/10/22 Range/Units 18:20 WBC (4.5-11.0) X10^3/uL RBC (4.0-5.2) X10^6/uL Hgb (12.0-16.0) g/dL Hct (36-46) % MCV (80-100) fL MCH (26-34) PG MCHC (30-36) % RDW (11.6-14.8) % Plt Count (150-400) X10^3/uL Neut % (Auto) (50-75) % Lymph % (Auto) (25-40) % Kenton % (Auto) (3-14) % Eos % (Auto) (2-4) % Baso % (Auto) (0-2) % Neut # (Auto) (3406-6283) /uL Lymph # (Auto) (3875-7471) /uL Kenton # (Auto) (0-900) /uL Eos # (Auto) (0-450) /uL Baso # (Auto) (0-100) /uL Sodium (137-145) mmol/L Potassium (3.4-5.1) mmol/L Chloride (98-107) mmol/L Carbon Dioxide (22-32) mmol/L BUN (7-17) mg/dL Creatinine (0.52-1.04) mg/dL Estimated GFR (>60) mL/min BUN/Creatinine Ratio (6-22) Glucose (70-100) mg/dL Lactate 1.5 (0.7-2.1) mmol/L Calcium (8.4-10.2) mg/dL Magnesium (1.6-2.3) mg/dL Total Bilirubin (0.2-1.3) mg/dL AST (14-36) IU/L ALT (<35) IU/L Alkaline Phosphatase (38-126) U/L C-Reactive Protein (<1.0) mg/dL Total Protein (6.3-8.2) g/dL Albumin (3.5-5.0) g/dL Globulin (1.7-4.1) g/dL Albumin/Globulin Ratio (1.0-2.8) Lipase (23-300) U/L Urine RBC (0-5/HPF) Urine WBC (0-5/HPF) Ur Squamous Epith Cells (0-5/HPF) Ur Transition Epith Cell (0-5/HPF) Urine Bacteria (None) Ur Culture Indicated? Point of care testing: Point of Care Testing Test Results Negative Urine Dip Bedside Urine Glucose Negative Bedside Urine Bilirubin - Negative Bedside Urine Ketone - Negative Urine Specific Bella[place] 1.010 Bedside Urine Occult Blood - Negative Bedside Urine pH 6.5 Bedside Urine Protein - Negative Bedside Urine Urobilinogen - Negative Bedside Urine Nitrite - Negative Bedside Urine Leukocytes + 70 Esterase Discharge Plan Departure Patient Disposition: Home Clinical Impression: Gallstones Vomiting Qualifiers: Vomiting type: unspecified Nausea presence: with nausea Qualified Code(s): R11.2 - Nausea with vomiting, unspecified Instructions: Eating a Diet Low in Saturated Fat, Trans Fat, and Cholesterol, Gallstones, Fat-Restricted Diet Activity Restrictions/Additional Instructions: *You have been diagnosed with gallstones and early cholecystitis. Please take these antibiotics as prescribed. If you get any hives, or swollen of your mouth and throat, please take Benadryl and go to the emergency department. I hope you start feeling better soon, please schedule follow-up with Dr. Mayer at [facility] office in 1-2 weeks for a re-evaluation. Please follow a low-fat diet and stay hydrated. Please return to the emergency department for new or worsening symptoms. Your lab work overall looks much better, please avoid alcohol as this interacts with your antibiotic and can make you more sick. If you have any worsening, please come back to the emergency department otherwise I hope this comes down and gets better over the next few days. Please start taking omeprazole 40 mg each morning to better protect your stomach. Okay to use Tums as needed if it is helpful. Avoid ibuprofen, coffee, alcohol and other things that can worsen your epigastric pain. I hope you feel better soon, okay to use Maalox as well. *What to do: *Please continue to take your regular medications as directed. [x ] New medication prescriptions sent to your pharmacy: [[facility]] [ ] New medication written as a paper prescription [ ] No new medications given *Please follow up with your primary care provider in 2-3 days, call for an appointment. Let them know you were seen in the Emergency Department and that we asked that you be seen for follow-up. We will electronically transmit a record of today's note if your PCP is in our system *If you do not have a primary care provider please contact [phone] to establish care with one of the [facility] primary care providers. *Return to Emergency Department if you should have any new, worsening, or concerning symptoms, such as [fever greater than 101F, chills, worsening pain, persistent vomiting or other bothersome symptoms]. Prescriptions: New cephalexin 500 mg capsule 500 mg PO TID 8 Days Qty: 24 0RF metronidazole 500 mg tablet 500 mg PO TID 8 Days Qty: 24 0RF ondansetron 4 mg tablet,disintegrating 4 mg PO Q8H PRN (Reason: nausea and vomiting) Qty: 30 0RF hydrocodone-acetaminophen 5-325 mg tablet 1 tab PO TID PRN (Reason: pain) Qty: 14 0RF cephalexin 500 mg capsule 500 mg PO TID 8 Days Qty: 24 0RF metronidazole 500 mg tablet 500 mg PO BID 8 Days Qty: 16 0RF ondansetron 4 mg tablet,disintegrating 4 mg PO Q8H PRN (Reason: nausea and vomiting ) Qty: 14 0RF No Action aspirin [Adult Low Dose Aspirin] 81 mg tablet,delayed release (DR/EC) 81 mg PO DAILY (DME) blood-glucose meter [True Metrix Glucose Meter] [facility] [place] See Rx Instructions .ROUTE .MEDSUPPLY Qty: 1 0RF Rx Instructions: use to [facility] blood sugar 4 times a day omeprazole 20 mg capsule,delayed release(DR/EC) 20 mg PO DAILY Qty: 90 2RF levothyroxine 200 mcg tablet 200 mcg PO DAILY Qty: 90 2RF liothyronine 5 mcg tablet 10 mcg PO DAILY Qty: 180 2RF norethindrone acetate 5 mg tablet 5 mg PO DAILY Qty: 50 1RF Rx Instructions: Take 5 pills on day one, then 4 pills a day for 2 days, 3 pills a day for 2 days, 2 pills a day for 2 days, and then one daily till appointment. pravastatin 20 mg tablet 20 mg PO BEDTIME Qty: 90 2RF nadolol 40 mg tablet 40 mg PO DAILY Qty: 90 1RF hydroxyzine HCl 50 mg tablet 50 mg PO TID PRN (Reason: anxiety) Qty: 90 11RF asenapine maleate [Saphris] 5 mg tablet, sublingual 10 mg sublingual BEDTIME 30 Days Qty: 60 0RF Rx Instructions: 30 DAYS ONLY OK. PATIENT NEEDS TO FIND BEHAVIORAL HEALTH DOC FOR CONT'D FILLS. metformin 1,000 mg tablet extended release 24hr 1,000 mg PO BID Qty: 180 1RF triamcinolone acetonide 0.1 % cream 1 applic topical BID PRN (Reason: rash) Qty: 30 3RF sertraline 50 mg tablet 150 mg PO DAILY spironolactone 50 mg tablet 50 mg PO DAILY Qty: 90 3RF multivitamin with folic acid [Tab-A-Feroz] 400 mcg Tablet 1 tab PO DAILY Qty: 30 0RF milk thistle 150 mg Capsule 300 mg PO DAILY Rx Instructions: give with meal/snack lidocaine 5 % adhesive patch,medicated 1 patch topical DAILY Qty: 1 0RF Rx Instructions: leave on most painful area for up to 12 hrs Referrals: Miguel Ángel Leary MD [Primary Care Provider] - Nilam Mayer MD [Physician] - Stand Alone Forms: Patient Portal/API <Nellie Vazquez DO - Last Filed: 08/11/22 19:03> Cosign ED Attending Kennethature Attestation: I was immediately available in the department for consultation. Documentation has been reviewed. Case was discussed.
[2022-08-10] MEDS: SODIUM CHLORIDE 0.9% 1,000 ML 1000 ML IV (16:15)
[2022-08-10] MEDS: KETOROLAC 30 MG/ML VIAL 15 MG IV (16:15)
[2022-08-10 16:16] LABS: Lactate (Lactic Acid) 3.2 mmol/L (0.7-2.1); Magnesium 1.8 mg/dL (1.6-2.3)
[2022-08-10] MEDS: PANTOPRAZOLE 40 MG VIAL IV (16:16)
[2022-08-10] MEDS: HYDROMORPHONE 0.5 MG INJ IV (16:16)
[2022-08-10 16:19] LABS: C-Reactive Protein Quant 0.7 mg/dL (<1.0)
[2022-08-10] MEDS: cefTRIAXone 1,000 MG in SODIUM CHLORIDE 0.9% 100 ML 200 MG IV (17:59)
--- NOTE | 2022-08-10 18:01 | PC.NURSE ---
This RN verified with the provider that no blood cultures are needed for patient.
[2022-08-10 18:06] LABS: Reflexed Lactate in 2 Hours Y
[2022-08-10] MEDS: metroNIDAZOLE 500 MG TABLET PO (18:11)
[2022-08-10] MEDS: HYDROCODONE/ACET 5/325 TABLET 1 TAB PO (18:11)
[2022-08-10 18:52] LABS: Lactate 2HR (Lactic Acid Rflx) 1.5 mmol/L (0.7-2.1)
== END 2022-08-10 18:50 | disposition home or self-care (01) ==
PROVIDERS: Emergency Medicine; Emergency Provider Nurse Practitioner Critical Care Medicine; PCP Student in an Organized Health Care Education/Training Program
DX: K80.20 Calculus of gallbladder without cholecystitis without obstruction (principal); R11.2 Nausea with vomiting, unspecified; I10 Essential (primary) hypertension
CPT/HCPCS: 36415; 76700; 80053; 81003; 81015; 81025; 83605; 83690; 83735; 85025; 86140; 87086; 93005; 96361; 96365; 96375; 96376; 99284; C9113; J0696; J1170; J1885; J2405

== ENCOUNTER 2022-09-02 13:21 | Day surgery (SDC) | payer OTHER, MEDICAID, SELFPAY ==
[2021-08-18 11:59] VITALS: BMI 34.7
[2022-09-01 11:21] VITALS: BMI 33.3
[2022-09-02] VITALS (12 sets, daily range): BP systolic 119–172; BP diastolic 63–90; PULSE 51–64; RESP 12–18; TEMP 36–36.7; O2SAT 92–98; BMI 33.3
--- NOTE | 2022-09-02 | PATH_ITS ---
[facility] Accession Number: [id number] No. of containers..02 Tissue . 01 Material submitted: . PART A: gallbladder - GALLBLADDER PART B: liver - LIVER BIOPSY . 01 Diagnosis: A. Gallbladder, Cholecystectomy: Chronic cholecystitis and cholelithiasis. Negative for dysplasia and neoplasia. . B. 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 Negative for significant inflammation or steatosis. [facility] 09/08/2022 1806 Local . 01 Comment: The liver biopsy is limited by partial thermal artifact and subcapsular in location. There is no significant portal or lobular inflammation and no steatosis. Thin bands of fibrous tissue are present some which seem to be emanating from the capsule. Only a few portal tracts are present in the biopsy for evaluation. The ducts are intact without inflammation. A trichrome stain highlights the bands of fibrosis. An iron stain is negative for iron deposition. A PAS with diastase stain is negative for PAS-positive intracytoplasmic globules. A reticulin stain shows the vast majority of the liver plates to be 2 cells thick. . Given the subcapsular location of this biopsy, the degree of fibrosis may be overestimated. These findings require correlation with the clinical, radiologic, and serologic findings. This case is also reviewed by Dr. Ronak Ibarra, who concurs with the given interpretation. . 01 Electronically signed: . Ashleigh Barton MD, Pathologist NPI- [id number] . 01 Gross description: . A. Received in formalin labeled with the patient's name, , and gallbladder, and consists of a disrupted gallbladder measuring 6.5 x 2.7 x 1.8 cm with green, wrinkled serosa and a rough hepatic surface significant for a full thickness defect measuring 0.5 cm in greatest dimension. The cystic duct is received closed with a clamp, is inked blue, and no pericystic lymph node is identified. The lumen contains dark green viscous bile admixed with multiple black, roughened calculi measuring up to 0.5 cm in greatest dimension grossly obstructing the cystic duct. The mucosa is green to valladares and velvety with no poinpoint yellow areas of discoloration, polyps, or lesions identified. The gilliam average 0.2 cm thick and loan servicing representative sections to include the cystic duct margin and full thickness sections are submitted in cassette A1. B. Received in formalin labeled with the patient's name, , and liver biopsy, and consists of a valladares to brown soft tissue fragment measuring 0.8 x 0.7 x 0.3 cm. The presumed margin is inked black, and the specimen is submitted intact in cassette B1. ([id number]) /JOSELITO 09/03/2022 1020 Local . 01 Pathologist provided ICD-10: K80.00 . 01 CPT . 937609, 775647, 665589, 807351, 169112, 287053 Specimen Comment: A courtesy copy of this report has been sent to [facility] Performed at: 01 [facility] Cytology [facility] [address], [place], [place] [id number] MD Aamir Trujillo MD Phone: [phone]
[2022-09-02] MEDS: LACTATED RINGERS 1,000 ML 42 ML IV ×2 (13:30→15:35)
--- NOTE | 2022-09-02 14:18 | SUR.OPER ---
Supine on padded OR bed, head on pillow, safety belt at thigh, left arm padded and tucked at side. Right arm secured on padded arm board <90 degrees abduction. Legs uncrossed. Padded footboard in place. Tape over blanket to secure lower legs.
--- NOTE | 2022-09-02 14:19 | PM.PREOP ---
Pre-operative Note Interval Note History & Physical reviewed/Exam performed by Physician: Yes Changes to H&P: No
[2022-09-02] MEDS: CEFAZOLIN 2 GM/100 ML PREMIX 100 ML IV (14:30)
[2022-09-02] MEDS: BUPIVACAINE 0.5% (PF) 30 ML VIAL INJ (14:51)
[2022-09-02] MEDS: fentaNYL 100 MCG/2 ML INJ IV ×3 (16:01→16:34)
[2022-09-02] MEDS: OXYCODONE IR 5 MG TABLET PO ×2 (16:03→16:28)
--- NOTE | 2022-09-02 16:03 | PM.OP.1 ---
Operative Date/Time/Diagnoses Date of procedure: 09/02/22 Time of procedure: 16:03 Pre-op diagnosis: Cholecystitis. Liver failure. Post-op diagnosis: same Procedure & Clinicians Procedure: 1. Laparoscopic cholecystectomy 2. Liver biopsy Same procedure as scheduled: Yes Indications: I did discuss liver biopsy with Ms. Burch before the operation. She indicated that she would like to proceed with that if it was indicated. Even though I had not necessarily planned to proceed with the biopsy at the time of our discussion, after seeing the liver (photograph taken) I thought that it definitely was indicated and would help her architectural project manager and her medical team direct her ongoing care for her liver function. For this reason I decided to proceed with a liver biopsy after the cholecystectomy was completed. I understood this course of action to be what she would have wanted. Surgeon: Nilam Mayer Compactor Driver: Allen Mills Anesthesia Type: General Operative Notes Findings: The liver was markedly nodular. The gallbladder itself did not appear terribly inflamed. Specimen(s): other (1. Gallbladder 2. Liver biopsy) Procedure in detail: Patient was taken to the operating room and placed supine on the operating room table. Bilateral SCDs were placed and preoperative antibiotics administered. A time-out was performed. General endotracheal anesthesia was then induced. The abdomen was prepped and draped in the usual sterile fashion. Local anesthesia was infused above the umbilicus and an 11 blade scalpel was used to make an incision in the skin. Two Jethro graspers were used to grab the anterior abdominal wall and lift it anteriorly. The fascia was then incised with an 11 blade scalpel. The posterior fascia was grabbed with a hemostat and elevated. This was incised as well. A finger sweep confirmed the intra-abdominal location. Of note a small umbilical hernia was noted below the incision and reduced into the abdomen. Two stay sutures were placed through the abdominal wall defect and an attempt to close the umbilical hernia defect with these closure sutures was made. Next the Irma trocar was placed under direct visualization into the abdomen and the abdomen was insufflated. Patient tolerated this well a 30 degree 5 mm laparoscope was introduced and the abdomen was inspected. There was no evidence of entry injury. The liver was markedly nodular and a photograph was obtained. The gallbladder itself did not have an appearance of extreme inflammation. The 5 mm accessory trocars were placed in the subxiphoid midclavicular and lateral positions subcostally after infusing local anesthesia and under direct visualization. Laparoscopic instruments were then introduced the abdomen and the gallbladder was grasped and retracted cephalad. The dissection of the critical view then proceeded and the cystic duct was seen in the usual location. A critical view was cleared out and a photograph was obtained. Next 2 laparoscopic clips were placed on the stay side of the cystic duct and 1 on the specimen side. The cystic duct was then ligated. Further dissection was performed to isolate and skeletonize the cystic artery. Suction market risk analyst was used since the liver bed was friable. The cystic artery was dissected doubly clipped and ligated. The remainder of the dissection proceeded using electrocautery to relieve the gallbladder from the gallbladder fossa of the liver. We were able to do this with relative hemostasis. Some electrocautery was required in the liver bed out of an abundance of caution to prevent bleeding. Before removing the gallbladder specimen, the security of the clips was checked and hemostasis was challenged with irrigation and suctioned. Finally the gallbladder specimen was removed and the camera was switched to subxiphoid port the Endo-Catch bag was placed through the umbilicus and the gallbladder was placed into it. At this point we did decide to proceed with a liver biopsy and a laparoscopic grasper was used to hold a very exposed and easily controlled area of the anterior portion of the liver. Electrocautery was used to come around this specimen while keeping the biopsy site very hemostatic. The biopsy was then removed and sent in formalin to the pathology department. Again the operative site was inspected and found hemostatic. The accessory trocars were then removed under direct visualization and the abdomen was desufflated. The previously placed stay sutures were close and an additional 0 Vicryl suture was placed in a [id number] between them. The sutured did find some closure of the umbilical defect. The remainder of the local anesthetic was infused around the incisions and the incisions were closed with 4-0 Monocryl and dressed with Steri-Strips Patient tolerated the procedure well EBL was minimal and she went in good condition to the postoperative care unit. There were no complications
--- NOTE | 2022-09-02 16:57 | SUR.PHASEI ---
Pt to be discharged home with boyfriend and talked to Dr Mayer about the tylenol in her pain medication and MD states it will be fine for short term. Pt now states she feels better.
== END 2022-09-02 17:30 | disposition home or self-care (01) ==
PROVIDERS: PCP Student in an Organized Health Care Education/Training Program; Referring Provider Surgery; Visit Provider Surgery
PROC: 0FT44ZZ Resection of Gallbladder, Percutaneous Endoscopic Approach (ICD-10-PCS; CPT 47562; principal; 2022-09-02 14:30)
DX: K80.10 Calculus of gallbladder with chronic cholecystitis without obstruction (principal); K70.40 Alcoholic hepatic failure without coma; F10.20 Alcohol dependence, uncomplicated
CPT/HCPCS: 47562; 47001; J0690; J2250; J3010

== ENCOUNTER → 2022-09-24 11:50 | Outpatient (CLI) | payer OTHER, MEDICAID, SELFPAY ==
[2021-08-18 11:59] VITALS: BMI 34.7
[2022-09-24 16:05] LABS: Follicle Stimulating Hormone 47.7 mIU/mL
[2022-09-24 16:22] LABS: Estradiol, Total 19.1 pg/mL
== END ==
PROVIDERS: PCP Student in an Organized Health Care Education/Training Program; Referring Provider Obstetrics & Gynecology; Visit Provider Obstetrics & Gynecology
DX: N95.1 Menopausal and female climacteric states (principal)
CPT/HCPCS: 36415; 82670; 83001

== ENCOUNTER → 2022-10-14 11:11 | Outpatient (CLI) | payer OTHER, MEDICAID, SELFPAY ==
[2021-08-18 11:59] VITALS: BMI 34.7
[2022-10-14 11:52] LABS: Add Manual Diff / Slide Review NO; Basophils Absolute Auto 0 /uL (0-100); Basophils Percent Auto 0.8 % (0-2); Eosinophils Absolute Auto 200 /uL (0-450); Eosinophils Percent Auto 3.6 % (2-4); Hemoglobin 12.4 g/dL (12.0-16.0); Lymphocytes Absolute Auto 1400 /uL (1100-4500); Lymphocytes Percent Auto 25.1 % (25-40); Mean Corpuscular HGB Conc 33.5 % (30-36); Mean Corpuscular Hemoglobin 28.5 PG (26-34); Monocytes Absolute Auto 500 /uL (0-900); Monocytes Percent Auto 8.1 % (3-14); Neutrophils Absolute Auto 3500 /uL (1500-7000); Neutrophils Percent Auto 62.4 % (50-75); Platelet Count 145 X10^3/uL (150-400); Red Blood Cell Count 4.35 X10^6/uL (4.0-5.2); Red Cell Distribution Width 14.2 % (11.6-14.8); White Blood Cell Count 5.7 X10^3/uL (4.5-11.0)
[2022-10-14 12:12] LABS: HEMOLYSIS < 15 (0-50)
[2022-10-14 12:22] LABS: Alanine Aminotransferase 40 IU/L (<35); Albumin 4.3 g/dL (3.5-5.0); Albumin Globulin Ratio 1.5 (1.0-2.8); Alkaline Phosphatase 99 U/L (38-126); Aspartate Aminotransferase 32 IU/L (14-36); BUN Creatinine Ratio 23.3 (6-22); Bilirubin Total 0.3 mg/dL (0.2-1.3); Bilirubin Unconjugated 0.1 mg/dL (0.0-1.1); Blood Urea Nitrogen 10 mg/dL (7-17); Calcium 8.9 mg/dL (8.4-10.2); Carbon Dioxide 23 mmol/L (22-32); Chloride 101 mmol/L (98-107); Estimated Glomerular Filt Rate > 60 mL/min (>60); Globulin 2.8 g/dL (1.7-4.1); Glucose 200 mg/dL (70-100); Potassium 4.2 mmol/L (3.4-5.1); Sodium 135 mmol/L (137-145); Total Protein 7.1 g/dL (6.3-8.2)
[2022-10-14 12:35] LABS: Vitamin D 25 Hydroxy (D3) 50.4 ng/mL (30.0-100.0)
[2022-10-14 13:32] LABS: Free T4, Direct Thyroxine 1.62 ng/dL (0.78-2.19); T4 Total Thyroxine 8.81 ug/dL (5.5-11.0)
[2022-10-14 13:45] LABS: TSH w/ Reflex to FT4 < 0.02 uIU/mL (0.47-4.68)
[2022-10-14 15:59] LABS: Creatinine Urine Random 86.6 mg/dL
[2022-10-14 16:03] LABS: Microalbumi Creatinin Ratio Ur 6.9 ug/mg CR (<30); Microalbumin Urine Random 0.6 mg/dL (0-1.6)
[2022-10-15 05:44] LABS: x Labcorp Estim. Avg Glu (eAG) 123 mg/dL (.); x Labcorp Hemoglobin A1c 5.9 % (4.8-5.6)
[2022-10-15 07:15] LABS: Triiodothyronine T3 Total 100 ng/dL (71-180)
[2022-10-20 15:14] LABS: Folate > 20.0 ng/mL (2.76-20.0); Vitamin B12 977 pg/mL (239-931)
== END ==
PROVIDERS: Student in an Organized Health Care Education/Training Program; PCP Pediatrics; Referring Provider Counselor Mental Health; Visit Provider Counselor Mental Health
DX: F10.20 Alcohol dependence, uncomplicated (principal); F33.2 Major depressive disorder, recurrent severe without psychotic features; F41.9 Anxiety disorder, unspecified; F33.3 Major depressive disorder, recurrent, severe with psychotic symptoms; E11.9 Type 2 diabetes mellitus without complications; K70.31 Alcoholic cirrhosis of liver with ascites; E89.0 Postprocedural hypothyroidism
CPT/HCPCS: 80053; 80076; 82043; 82306; 82570; 82607; 82746; 83036; 84436; 84439; 84443; 84480; 85025

== ENCOUNTER → 2022-11-04 12:25 | Outpatient (CLI) | payer OTHER, MEDICAID, SELFPAY ==
[2021-08-18 11:59] VITALS: BMI 34.7
--- NOTE | 2022-11-04 | DI.MG.S_ITS ---
BILATERAL DIGITAL SCREENING MAMMOGRAM 3D/2D WITH CAD: 11/04/2022 CLINICAL: Routine screening. Family history of breast cancer. Comparison is made to exams dated: 10/28/2021 mammogram, 06/22/2020 mammogram, and 10/15/2018 mammogram - [facility]. Both breasts are heterogeneously dense, which may obscure small masses (category c / 51-75% glandular tissue). Current study was also evaluated with a Computer Aided Detection (CAD) system. There are benign calcifications in both breasts. There also are benign vascular calcifications in both breasts. No significant masses, calcifications, or other findings are seen in either breast. There has been no significant interval change. IMPRESSION: BENIGN There is no mammographic evidence of malignancy. A 1 year screening mammogram is recommended. Based on the Tyrer Cuzick model (a risk assessment model) the patient's lifetime risk is 13.2% and her 10 year risk is 3.1%. According to the ACR, ACS, and NCCN guidelines, an annual breast MRI exam along with mammogram is recommended if the patient's lifetime risk is 20% or greater. This exam was interpreted at Station ID: [id number]. NOTE: For mammograms, a report in lay terms will be sent to the patient. Approximately 15% of breast malignancies will not be visualized mammographically. In the management of a palpable breast mass, a negative mammogram must not discourage biopsy of a clinically suspicious lesion. Electronically Signed By: Maida perez/osmani:11/05/2022 14:17:30 letter sent: Normal Exam ACR BI-RADS Category 2: Benign Finding(s) 3342F
== END ==
PROVIDERS: PCP Pediatrics; Referring Provider Pediatrics; Visit Provider Pediatrics
DX: Z12.31 Encounter for screening mammogram for malignant neoplasm of breast (principal); Z80.3 Family history of malignant neoplasm of breast
CPT/HCPCS: 77063; 77067

== ENCOUNTER 2022-11-07 08:41 | Day surgery (SDC) | payer OTHER, MEDICAID, SELFPAY ==
[2021-08-18 11:59] VITALS: BMI 34.7
[2022-11-07] VITALS (7 sets, daily range): BP systolic 132–157; BP diastolic 59–89; PULSE 53–68; RESP 12–16; TEMP 36.1–36.3; O2SAT 97–100; BMI 34.2
--- NOTE | 2022-11-07 | PATH_ITS ---
[facility] Accession Number: [id number] No. of containers..02 Tissue . 01 Material submitted: . PART A: colon - ASCENDING COLON POLYP PART B: colon - HEPATIC FLEXURE POLYP . 01 Diagnosis: A. Ascending Colon Polyp: Tubular adenoma. . B. Hepatic Flexure Polyp: Tubular adenoma. [facility] 11/18/2022 1711 Local . 01 Electronically signed: . Camille Meza MD, Pathologist NPI- [id number] . 01 Gross description: . Part A: ASCENDING COLON POLYP: Received in formalin is 1 fragment(s) of valladares, soft tissue measuring 0.3 x 0.2 x 0.2 cm submitted entirely in 1 cassette(s) Part B: HEPATIC FLEXURE POLYP: Received in formalin are 2 fragment(s) of valladares, soft tissue measuring 0.1 x 0.1 x 0.1 cm to 0.3 x 0.2 x 0.2 cm submitted entirely in 1 cassette(s) /CHELA 11/14/2022 2320 Local . 01 Pathologist provided ICD-10: K63.5 . 01 CPT . 713705, 113148 Specimen Comment: A courtesy copy of this report has been sent to [facility] Performed at: 01 [facility] Cytology [address], [place], [place] [id number] MD Aamir Trujillo MD Phone: [phone]
[2022-11-07] MEDS: LACTATED RINGERS 1,000 ML 84 ML IV (09:18)
--- NOTE | 2022-11-07 10:09 | P.HP_ITS ---
History of Present Illness History of Present Illness Date Patient Seen: 11/07/22 Time Patient Seen: 10:10 Chief complaint: SDC, history of polyps Narrative: Ms. Montez is a 52-year-old female who presents today for a screening colonoscopy. She has a history of cirrhosis and alcoholism. She is had derangement of her liver function tests in the past but recently they have been within normal limits and her INR has been normal as well. She is been abstinent from alcohol for at least several months, although I am not sure the exact date she is really doing well with recovery. She has no family history of colon cancer and no current symptoms that are concerning. In the past she did have a colonoscopy in [place] for rectal bleeding. A few polyps were found at the time as far as she recalls though she is not entirely sure. She has not had any subsequent bleeding recently changes in bowel habits or abdominal pain that is concerning. FOR[facility] Medical History (Updated 11/07/22 @ 10:12 by Nilam Mayer MD) Alcohol withdrawal seizure Avascular necrosis of bone of hip Bipolar disorder Chicken pox Chlamydia (~1988) Cirrhosis Colon polyp COPD (chronic obstructive pulmonary disease) Delirium tremens Depression Endometrial thickening on ultrasound Esophageal stricture Esophageal varices Hayfever Hemorrhoids Hypothyroidism (1997) Irregular periods/menstrual cycles MRSA infection Pancytopenia Papillary adenocarcinoma of thyroid Seizures Shoulder pain Substance abuse Surgical History (Updated 09/17/22 @ 16:39 by Xochilt Ling) Anesthesia complication History of adenoidectomy History of bunionectomy History of dilation and curettage History of ear surgery History of esophageal surgery (2016) History of left hip replacement (08/2017) History of placement of ear tubes History of right hip replacement (11/2017) History of tonsillectomy History of total thyroidectomy (1997) Hx laparoscopic cholecystectomy Family History Father No problems noted. Mother Depression Hyperlipidemia Thyroid disorder Mental health problem Brother No problems noted. Grandfather Lung cancer Cancer Grandmother Thyroid disorder Potassium disorder Hyperlipidemia Hypertension Grandfather No problems noted. Grandmother No problems noted. Family/Other No problems noted. Social History household members: significant other Smoking Status: Former smoker alcohol intake: former substance use type: does not use eating out: rarely or never Type(s) of exercise: none Meds Home Medications and Allergies Home Medications Medication Instructions Recorded Confirmed Type aspirin 81 mg tablet,delayed 81 mg PO DAILY 12/17/19 11/07/22 History release (Adult Low Dose Aspirin) blood-glucose meter (True Metrix #1 ea 03/07/20 09/16/22 Rx Glucose Meter) multivitamin with folic acid 400 1 tab PO DAILY #30 tabs 06/05/21 09/16/22 Rx mcg tablet (Tab-A-Feroz) hydroxyzine HCl 50 mg tablet 50 mg PO TID PRN anxiety #90 tabs 06/18/21 11/07/22 Rx milk thistle 150 mg capsule 300 mg PO DAILY 08/17/21 09/16/22 History lidocaine 5 % topical patch 1 patch topical DAILY #1 ea 08/29/21 09/16/22 Rx metformin 1,000 mg tablet,extended 1,000 mg PO BID #180 tabs 03/19/22 09/16/22 Rx release 24hr pravastatin 20 mg tablet 20 mg PO BEDTIME #90 tabs 05/06/22 11/07/22 Rx nadolol 40 mg tablet 40 mg PO DAILY #90 tabs 07/09/22 11/07/22 Rx spironolactone 50 mg tablet 50 mg PO DAILY #90 tabs 07/16/22 09/16/22 Rx asenapine maleate 10 mg sublingual 10 mg sublingual .qhs 08/12/22 11/07/22 History tablet sertraline 100 mg tablet 200 mg PO QAM 08/12/22 11/07/22 History omeprazole 20 mg capsule,delayed 20 mg PO DAILY #90 caps 08/26/22 11/07/22 Rx release liothyronine 5 mcg tablet 5 mcg PO BID 09/01/22 09/16/22 History docusate sodium 100 mg capsule 100 mg PO BID #20 caps 09/02/22 11/07/22 Rx (Colace) hydrocodone 5 mg-acetaminophen 325 2 tab PO Q6H PRN pain #14 tabs 09/16/22 11/07/22 Rx mg tablet mecobalamin (vitamin B12) 1,000 1,000 mcg PO DAILY 09/16/22 09/16/22 History mcg chewable tablet peg 3350-electrolytes 236 240 ml PO Q10M #4,000 mL 09/17/22 Rx gram-22.74 gram-6.74 gram-5.86 gram solution (Golytely) levonorgestrel 21 mcg/24 hours (8 intrauterine 09/24/22 09/24/22 History yrs) 52 mg intrauterine device (Mirena) levothyroxine 200 mcg tablet See Rx Instructions .Route 11/03/22 11/07/22 Rx .COMPLEX #90 tabs Allergies Allergy/AdvReac Type Severity Reaction Status Date / Time Penicillins [PENICILLINS] Allergy Severe Swelling Verified 11/07/22 08:56 of Lip/Tongue/Throat Sulfa (Sulfonamide Allergy Intermediate Rash Verified 11/07/22 08:56 Antibiotics) [SULFA (SULFONAMIDE ANTIBIOTICS)] sulfamethoxazole Allergy Intermediate Rash Verified 11/07/22 08:56 [From Bactrim] trimethoprim [From Bactrim] Allergy Intermediate Rash Verified 11/07/22 08:56 Exam Vital Signs (past 8 hours): - 11/07/22 09:05 Temperature 96.9 F L Pulse Rate 68 Respiratory Rate 16 Blood Pressure 138/89 Pulse Oximetry 97 Oxygen Delivery Method Room Air Oxygen Delivery Method Room Air Const General: cooperative, healthy appearing and comfortable HENMT Head: normal to inspection Mouth: oral mucosae normal Resp Effort & Inspection: normal respiratory effort and able to speak in complete sentences GI Palpation: soft and No tender Assessment & Plan Assessment and plan (1) History of colon polyps: Status: Acute (2) Colon cancer screening: Status: Acute Assessment & Plan narrative: Presents today for screening colonoscopy I discussed the risks benefits and alternatives including but not limited to perforation of the colon and an incomplete exam she fully understands these risks and would like to proceed.
--- NOTE | 2022-11-07 11:13 | PM.OP.COLON ---
Operative Date/Time/Diagnoses Date of procedure: 11/07/22 Time of procedure: 11:13 Pre-op diagnosis: colon cancer screening, history of polyps history of rectal bleeding Procedure & Clinicians Study performed: Colonoscopy and biopsy Same procedure as scheduled: Yes Indications: History of colon polyps, history of rectal bleeding, colon cancer screening. No known family history Surgeon: Nilam Mayer Procedure Notes Procedure in detail: Patient was taken to the endoscopy suite and placed in a left lateral decubitus position. A time-out was performed. The assistance of an anesthesiology provider conscious sedation was induced, maintained and monitored throughout the case. A digital rectal exam was performed and there were no masses or strictures. There were some external anal skin tags. The colonoscope was introduced into the anal canal and advanced through to the cecum. Right side of the colon the bowel prep was somewhat poor: photographs were obtained, I would say the right side of the colon had a [place] bowel prep score of 1. However, with suction and irrigation I think we achieved a relatively decent exam overall. A photograph of the appendiceal orifice was obtained. I began the withdrawal, and I was approximately 2-4 minutes into the withdrawal in the ascending colon where I saw and successfully removed a small polyp with the biopsy forceps, when the power in the endoscopy suite went out. We lost visualization of the camera and the scope as well as light or power for a moment. When the power returned the scope was in approximately the same position and there was no evidence of injury. I recommenced the exam and the scope was further withdrawn to the point of the hepatic flexure when a 2nd small polyp was seen. This time, a biopsy forceps was placed into the channel of the scope. However, I was unable to advance the forceps through the channel completely. The forceps hit a complete blockage within the channel. Several attempts to pass this with increasing amounts of force were made until, it was determined that whatever blockage there was, was something I would not be able to manually push through. Therefore, the scope was withdrawn completely and plan to change the scope was made. When the 1st scope was removed from the body several more attempts were made to pass a forceps through it in an effort to diagnose problem was. With a large amount of force at this point, having the scope straightened, I was able to push the forceps through the channel. However, the the channel was still sticky with each passage of the forceps and so that c-scope was tagged and sent for repair. New scope was hooked up and I commenced the procedure by introducing it again into the anal canal and advancing through to the point where I was able to see our 1st biopsy. The remainder of the withdrawal at that time was 12 minutes; the hepatic flexure polyp that was seen previously was seen again and removed totally with the biopsy forceps. The scope was then further withdrawn and the remainder of the bowel prep was good: [place] bowel prep score of 2. I think that in spite of the technical difficulties here: it was an adequate exam. There were a few scattered diverticula and the internal hemorrhoidal piles appeared normal. Patient tolerated the procedure well and went in good condition to the postoperative care unit Findings: divertiulosis and polyp(s) Specimen(s): other (1. Ascending colon polyp 2. Hepatic flexure polyp (both were small)) Complications: none Post-procedure Plan for aftercare: Follow-up recommendation will be 7-10 years depending on pathology of these polyps, so long as no symptoms develop and no family members develop colon cancer in the interim. I do recommend a high fiber diet and a fiber supplement as well.
== END 2022-11-07 11:57 | disposition home or self-care (01) ==
PROVIDERS: PCP Pediatrics; Referring Provider Surgery; Visit Provider Surgery
PROC: 0DJD8ZZ Inspection of Lower Intestinal Tract, Via Natural or Artificial Opening Endoscopic (ICD-10-PCS; CPT 45378; principal; 2022-11-07 10:00)
DX: Z12.11 Encounter for screening for malignant neoplasm of colon (principal); Z86.010 Personal history of colon polyps; K57.30 Diverticulosis of large intestine without perforation or abscess without bleeding; D12.2 Benign neoplasm of ascending colon; D12.3 Benign neoplasm of transverse colon
CPT/HCPCS: 45380; J2704

== ENCOUNTER → 2022-12-16 14:57 | Outpatient (CLI) | payer OTHER, MEDICAID, SELFPAY ==
[2021-08-18 11:59] VITALS: BMI 34.7
[2022-12-16 16:22] LABS: INR 1.1 (0.9-1.3); Prothrombin Time 12.3 SECONDS (10.1-12.7)
[2022-12-16 16:25] LABS: Add Manual Diff / Slide Review NO; Basophils Absolute Auto 100 /uL (0-100); Basophils Percent Auto 1.4 % (0-2); Eosinophils Absolute Auto 400 /uL (0-450); Eosinophils Percent Auto 5.8 % (2-4); Hemoglobin 11.8 g/dL (12.0-16.0); Lymphocytes Absolute Auto 2200 /uL (1100-4500); Lymphocytes Percent Auto 30.1 % (25-40); Mean Corpuscular HGB Conc 33.8 % (30-36); Mean Corpuscular Hemoglobin 28.3 PG (26-34); Mean Corpuscular Volume 83.9 fL (80-100); Monocytes Absolute Auto 300 /uL (0-900); Monocytes Percent Auto 4.5 % (3-14); Neutrophils Absolute Auto 4300 /uL (1500-7000); Neutrophils Percent Auto 58.2 % (50-75); Platelet Count 209 X10^3/uL (150-400); Red Blood Cell Count 4.17 X10^6/uL (4.0-5.2); Red Cell Distribution Width 14.6 % (11.6-14.8); White Blood Cell Count 7.4 X10^3/uL (4.5-11.0)
[2022-12-16 16:28] LABS: Alanine Aminotransferase 32 IU/L (<35); Albumin 4.2 g/dL (3.5-5.0); Albumin Globulin Ratio 1.6 (1.0-2.8); Alkaline Phosphatase 103 U/L (38-126); Aspartate Aminotransferase 23 IU/L (14-36); BUN Creatinine Ratio 19.5 (6-22); Bilirubin Total 0.3 mg/dL (0.2-1.3); Blood Urea Nitrogen 8 mg/dL (7-17); Calcium 9.5 mg/dL (8.4-10.2); Carbon Dioxide 26 mmol/L (22-32); Chloride 102 mmol/L (98-107); Estimated Glomerular Filt Rate > 60 mL/min (>60); Globulin 2.7 g/dL (1.7-4.1); Glucose 98 mg/dL (70-100); HEMOLYSIS < 15 (0-50); Sodium 137 mmol/L (137-145); Total Protein 6.9 g/dL (6.3-8.2)
[2022-12-17 03:36] LABS: Labcorp Hemoglobin (Hb) A1c 6.2 % (4.8-5.6)
== END ==
PROVIDERS: PCP Pediatrics; Referring Provider Pediatrics; Visit Provider Pediatrics
DX: E11.9 Type 2 diabetes mellitus without complications (principal); E66.01 Morbid (severe) obesity due to excess calories; K70.30 Alcoholic cirrhosis of liver without ascites; M21.371 Foot drop, right foot
CPT/HCPCS: 36415; 80053; 83036; 85025; 85610

== ENCOUNTER → 2023-05-06 14:13 | Outpatient (CLI) | payer OTHER, MEDICAID, SELFPAY ==
[2021-08-18 11:59] VITALS: BMI 34.7
[2023-05-06 14:36] LABS: Hematocrit 40.8 % (36-46); Hemoglobin 13.9 g/dL (12.0-16.0); Mean Corpuscular Hemoglobin 30.1 PG (26-34); Mean Corpuscular Volume 88.5 fL (80-100); Platelet Count 277 X10^3/uL (150-400); Red Blood Cell Count 4.61 X10^6/uL (4.0-5.2); Red Cell Distribution Width 13.1 % (11.6-14.8); White Blood Cell Count 9.4 X10^3/uL (4.5-11.0)
[2023-05-06 14:45] LABS: Hemoglobin A1C% w Est Avg Glu 6.2 % (4.0-6.0)
[2023-05-06 14:57] LABS: Alanine Aminotransferase 100 IU/L (<35); Albumin 4.7 g/dL (3.5-5.0); Albumin Globulin Ratio 1.3 (1.0-2.8); Alkaline Phosphatase 110 U/L (38-126); Aspartate Aminotransferase 98 IU/L (14-36); BUN Creatinine Ratio 10.5 (6-22); Bilirubin Total 0.7 mg/dL (0.2-1.3); Blood Urea Nitrogen 4 mg/dL (7-17); Calcium 9.8 mg/dL (8.4-10.2); Carbon Dioxide 22 mmol/L (22-32); Chloride 94 mmol/L (98-107); Estimated Glomerular Filt Rate > 60 mL/min (>60); Globulin 3.6 g/dL (1.7-4.1); Glucose 117 mg/dL (70-100); HEMOLYSIS 28 (0-50); Potassium 4.8 mmol/L (3.4-5.1); Sodium 128 mmol/L (137-145); Total Protein 8.3 g/dL (6.3-8.2)
[2023-05-06 15:29] LABS: TSH w/ Reflex to FT4 0.06 uIU/mL (0.47-4.68)
[2023-05-06 16:22] LABS: Free T4, Direct Thyroxine 1.71 ng/dL (0.78-2.19)
== END ==
PROVIDERS: PCP Internal Medicine; Referring Provider Internal Medicine; Visit Provider Internal Medicine
DX: E11.69 Type 2 diabetes mellitus with other specified complication (principal); E78.5 Hyperlipidemia, unspecified; E78.2 Mixed hyperlipidemia; K70.30 Alcoholic cirrhosis of liver without ascites
CPT/HCPCS: 36415; 80053; 83036; 84439; 84443; 85027

== ENCOUNTER → 2023-06-02 12:02 | Outpatient (CLI) | payer OTHER, MEDICAID, SELFPAY ==
[2021-08-18 11:59] VITALS: BMI 34.7
--- NOTE | 2023-06-02 12:03 | DI.MRI.S_ITS ---
PROCEDURE: MR ABDOMEN LIVER PROTOCOL INDICATIONS: Known cirrhosis with follow-up TECHNIQUE: Coronal HASTE, axial 2D FLASH in- and [id number]; axial breath-hold T2 FSE. Dynamic axial VIBE during the administration of contrast; post-contrast coronal VIBE or 2D FLASH with fat saturation from the hepatic dome to the iliac crests. Optional diffusion weighted imaging and ADC may be performed. COMPARISON: [facility], MR, MR ABDOMEN WO/W CON, 06/27/2021, 12:12. FINDINGS: Image quality: Diagnostic Lower chest: No basal effusions. The lungs are not well evaluated on MRI. Heart size is normal. Liver: Hepatic steatosis, moderate to severe. No suspicious hypervascular liver lesion. There may be small shunts, LR 2. Previously seen T1 hyperintense area just posterior to the IVC in the right lobe is stable, LR 2. Suspected cyst at the dome is smaller and more ill-defined on today's study. Gallbladder and biliary system: Nondilated. Gallbladder is not well seen. Pancreas: Unremarkable Spleen: Nonenlarged Adrenals: No discrete nodules Kidneys: No solid mass or hydronephrosis. There are renal cysts. Vessels and lymph nodes: The main portal vein appears patent. No pathologic lymph nodes by size criteria. Bowel and peritoneum: No evidence of small bowel obstruction. No pathologic ascites. Body wall: Unremarkable Pelvis: Not imaged Bones: No acute or suspicious osseous findings. IMPRESSION: Moderate to severe hepatic steatosis. No LR 3, 4, or 5 hepatic lesions. Recommend continued HCC surveillance in the setting of cirrhosis. Other findings as above. Dictated by: Cresencio Estevez M.D. on 06/02/2023 at 13:25 Approved by: Cresencio Estevez M.D. on 06/02/2023 at 13:35
== END ==
PROVIDERS: PCP Internal Medicine; Referring Provider Internal Medicine; Visit Provider Internal Medicine
DX: N83.209 Unspecified ovarian cyst, unspecified side (principal); K70.30 Alcoholic cirrhosis of liver without ascites; F10.90 Alcohol use, unspecified, uncomplicated
CPT/HCPCS: 74183

== ENCOUNTER 2023-06-04 17:03 | Emergency (ER) | payer OTHER, MEDICAID, SELFPAY ==
[2021-08-18 11:59] VITALS: BMI 34.7
[2023-06-04 17:11] VITALS: BP 135/79; PULSE 69; RESP 18; TEMP 36.6; O2SAT 95; BMI 48.6
--- NOTE | 2023-06-04 17:44 | PC.NURSE ---
Pt fell at home because she was intoxicated and boyfriend called EMS to help her get up. Pt states that she drinks 10-15 cans of beer per day. Pt reports that she wants to go to detox to sober up. Pt's last drink was approximately 1600.
--- NOTE | 2023-06-04 17:54 | CM.SWNOTE ---
ED DIRECTOR OF ANALYTICAL DEVELOPMENT Assessment DIRECTOR OF ANALYTICAL DEVELOPMENT - Weatherization Specialist Assessment DIRECTOR OF ANALYTICAL DEVELOPMENT/Weatherization Specialist Assessment Time Spent with Patient Start date 06/04/23 Visit Start Time 17:05 End date 06/04/23 Visit End Time 17:20 Total time Care Management spent on 15 minutes patient visit-in minutes Substance Abuse Screening Include Onset, Duration, Intensity Presenting Problem Patient presents to ED via EMS due to concern for ETOH use and seeking detox. Patient endorses she drank 18 beers today and usually drinks that amount daily. Precipitating Event(s) Patient endorses she fell today due to ETOH use and she is seeking help. Patient Strengths Patient has boyfriend as support, patient is seeking help. Current Behavioral Health Provider(s) Patient endorses she goes to Include Facility, Provider, Ph. # [facility] in [place] (Ph. # [phone]), patient endorses she sees [facility] for medication management, [facility] for CDP counseling and [facility] for MH therapy. Patient gives consent for this DIRECTOR OF ANALYTICAL DEVELOPMENT to call, DIRECTOR OF ANALYTICAL DEVELOPMENT calls and leaves requesting return call. Family Hx of Behavioral Abuse None reported Rehab Facilities? ((Date(s), Location(s) Patient endorses hx of BH/ ) rehab stay in [address] [facility]. History of Withdrawal? Seizures? Patient endorses being hot, sweaty, shaky and presenting with anxiety. Patient endorses hx of seizures. Longest Period of Sobriety Patient endorses she was two years sober in 2001 when she had her daughter. Psychosocial information & Support Patient is 53 y/o female who Systems resides in [place] with boyfriend. Patient endorses her boyfriend is a support, patient endorses her daughter resides in [place]. School/Work Unemployed Legal Concerns Legal Matters - Outstanding Issues None reported Mental Status Orientation (Person/Place/Time) A/Ox3 Stated Mood tired Affect (Congruent with Mood?) flat, congruent with mood Thought Content - Specify/Describe None reported Obsessions, Delusions, Hallucinations Thought Processes (Hterprl-Lftuhibz-Xfxs coherent Sqcajljk-Sxafwper-Khtyrorhlo- Aigzkbrrzpjiwq-Tdfomit-Isqxfnayxyst- Thought Blocking) Speech (Tpaipg-Xnbj-Karwbmi-Rapid-Soft- slow Loud-Pressured) Motor (Azzpez-Evtcrjtqq-Xjew-Other) normal Insight (Kvbq-Xhnw-Hapv/Limited) fair Judgement (Lrwa-Clpu-Plyd/Limited) fair Impulse Control (Adequate-Impaired) adequate during assessment Memory (Uowcqaicg-Uymyuv-Tfggha, intact, not formally assessed Impaired-Intact) Concentration (Intact-Impaired) intact Attention (Intact-Impaired) intact Behavior (Appropriate-Inappropriate) appropriate Additional Comment Patient presents as calm, cooperative and communicative. Risk Assessment Suicidal Ideation (Plan) No Homicidal Ideation (Plan) No Comment Patient denies HI and SI. Patient endorses hx of suicide attempt in 2010 when she drank a bottle of rubbing alcohol and a box of sleeping pills resulting in inpatient hospitalization. Intervention Intervention DIRECTOR OF ANALYTICAL DEVELOPMENT enters room to meet with patient. Patient endorses ongoing ETOH use and states she usually drinks 18 beers a day and that is what she drank today. Patient endorses she fell today and her boyfriend called 911 and patient presents seeking detox. Patient has hx of similar presentations to this hospital related to patient's ETOH use . Patient has hx a of Alcohol use disorder, Bipolar, Depression and Anxiety. It is the opinion of this DIRECTOR OF ANALYTICAL DEVELOPMENT that upon medical clearance patient would benefit from detox for medication management and safety. DIRECTOR OF ANALYTICAL DEVELOPMENT to review above with ED provider, awaiting ED evaluation from medical provider at this time. Plan RA Plan Upon medical clearance ED team to seek detox for patient SHREE Swartz
[2023-06-04 17:55] LABS: UR Morphine/Opiate cutoff 300 Negative (Negative); Ur Creatinine Normal (Normal); Ur Specific Gravity Normal (Normal); Urine Amphetamines Negative (Negative); Urine Barbiturates Negative (Negative); Urine Benzodiazepines Negative (Negative); Urine Cocaine Negative (Negative); Urine MDMA Negative (Negative); Urine Methadone Negative (Negative); Urine Methamphetamines Negative (Negative); Urine Oxycodone Negative (Negative); Urine Phencyclidine Negative (Negative); Urine Tetrahydrocannabinol Positive (Negative); Urine Tricyclic Antidepressant Negative (Negative); Urine pH Normal (Normal)
[2023-06-04 18:02] LABS: Add Manual Diff / Slide Review NO; Basophils Absolute Auto 100 /uL (0-100); Basophils Percent Auto 1.1 % (0-2); Eosinophils Absolute Auto 200 /uL (0-450); Eosinophils Percent Auto 2.5 % (2-4); Hematocrit 40.9 % (36-46); Hemoglobin 13.9 g/dL (12.0-16.0); Lymphocytes Absolute Auto 3300 /uL (1100-4500); Lymphocytes Percent Auto 44.2 % (25-40); Mean Corpuscular Volume 88.1 fL (80-100); Monocytes Absolute Auto 400 /uL (0-900); Monocytes Percent Auto 5.4 % (3-14); Neutrophils Absolute Auto 3500 /uL (1500-7000); Neutrophils Percent Auto 46.8 % (50-75); Platelet Count 265 X10^3/uL (150-400); Red Blood Cell Count 4.64 X10^6/uL (4.0-5.2); Red Cell Distribution Width 13.2 % (11.6-14.8); White Blood Cell Count 7.6 X10^3/uL (4.5-11.0)
[2023-06-04 18:14] LABS: COVID19 -Nasal RAPID Negative (Negative)
[2023-06-04 18:18] LABS: Alanine Aminotransferase 95 IU/L (<35); Albumin 4.6 g/dL (3.5-5.0); Albumin Globulin Ratio 1.2 (1.0-2.8); Alkaline Phosphatase 118 U/L (38-126); Aspartate Aminotransferase 118 IU/L (14-36); Bilirubin Total 0.7 mg/dL (0.2-1.3); Calcium 9.2 mg/dL (8.4-10.2); Carbon Dioxide 20 mmol/L (22-32); Chloride 90 mmol/L (98-107); Estimated Glomerular Filt Rate > 60 mL/min (>60); Ethanol (ETOH) 278 mg/dL; Globulin 3.8 g/dL (1.7-4.1); Glucose 182 mg/dL (70-100); HEMOLYSIS < 15 (0-50); Potassium 4.4 mmol/L (3.4-5.1); Sodium 125 mmol/L (137-145); Total Protein 8.4 g/dL (6.3-8.2)
[2023-06-04 18:24] LABS: Blood Urea Nitrogen < 2 mg/dL (7-17)
--- NOTE | 2023-06-04 18:28 | DI.CT.S_ITS ---
PROCEDURE: CT HEAD/BRAIN WO CON INDICATIONS: GLF/ETOH TECHNIQUE: Noncontrast 4.5 mm thick angled axial sections acquired from the foramen magnum to the vertex, with coronal and sagittal reformats. For radiation dose reduction, the following was used: automated exposure control, adjustment of mA and/or kV according to patient size. COMPARISON: [facility], CT, CT HEAD/BRAIN WO CON, 12/02/2021, 18:34. FINDINGS: Image quality: Diagnostic. CSF spaces: Basal cisterns are patent. No extra-axial fluid collections. Ventricles are normal in size and shape. Brain: No midline shift. No intracranial masses or hemorrhage. Burt-white matter interface is normal. Skull and face: Calvarium and visualized facial bones are intact, without suspicious lesions. Left posterior scalp contusion, without underlying fracture. Sinuses: Visualized sinuses and mastoids are clear. IMPRESSION: No acute intracranial pathology. Left posterior scalp contusion. Dictated by: Stiven Johnson M.D. on 06/04/2023 at 19:27 Approved by: Stiven Johnson M.D. on 06/04/2023 at 19:28
--- NOTE | 2023-06-04 18:28 | ED.ALCOHOL ---
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 Patient states she was intoxicated and fell and could not get up, prompting her call to 911. Patient reports drinking ?at least? 18 beers a day. Last drink 1 hour ago. Patient states she would like help with her alcohol use. Related Data Home Medications Medication Instructions Recorded Confirmed aspirin 81 mg tablet,delayed 81 mg PO DAILY 12/17/19 05/06/23 release (Adult Low Dose Aspirin) milk thistle 150 mg capsule 300 mg PO DAILY 08/17/21 05/06/23 sertraline 100 mg tablet 200 mg PO QAM 08/12/22 05/06/23 mecobalamin (vitamin B12) 1,000 1,000 mcg PO DAILY 09/16/22 05/06/23 mcg chewable tablet levonorgestrel 21 mcg/24 hours (8 intrauterine 09/24/22 05/06/23 yrs) 52 mg intrauterine device (Mirena) acamprosate 333 mg tablet,delayed 333 mg PO DAILY 05/06/23 05/06/23 release asenapine maleate 2.5 mg 2.5 mg sublingual DAILY 05/06/23 05/06/23 sublingual tablet escitalopram oxalate 10 mg tablet 10 mg PO DAILY 05/06/23 05/06/23 Previous Rx's Medication Instructions Recorded multivitamin with folic acid 400 1 tab PO DAILY #30 tabs 06/05/21 mcg tablet (Tab-A-Feroz) hydroxyzine HCl 50 mg tablet 50 mg PO TID PRN anxiety #90 tabs 06/18/21 lidocaine 5 % topical patch 1 patch topical DAILY #1 ea 08/29/21 spironolactone 50 mg tablet 50 mg PO DAILY #90 tabs 07/16/22 docusate sodium 100 mg capsule 100 mg PO BID #20 caps 09/02/22 (Colace) psyllium husk (with sugar) 3.4 1 tbsp PO BID #822 grams 11/07/22 gram/7 gram oral powder (Fiber (psyllium husk-sugar)) blood-glucose meter (True Metrix #0 ea 12/24/22 Glucose Meter) nadolol 40 mg tablet 40 mg PO DAILY #90 tabs 12/29/22 blood sugar diagnostic (True #400 ea 12/30/22 Metrix Glucose Test Strip) liothyronine 5 mcg tablet 5 mcg PO BID #180 tabs 01/14/23 metformin 1,000 mg tablet See Rx Instructions .Route 02/11/23 .COMPLEX #180 tabs omeprazole 20 mg capsule,delayed 20 mg PO DAILY #90 caps 05/06/23 release levothyroxine 175 mcg tablet 175 mcg PO DAILY #90 tabs 05/08/23 pravastatin 20 mg tablet 20 mg PO BEDTIME #90 tabs 05/18/23 chlordiazepoxide HCl 25 mg capsule 25 mg PO .asdir #15 caps 06/05/23 Allergies Allergy/AdvReac Type Severity Reaction Status Date / Time Penicillins [PENICILLINS] Allergy Severe Swelling Verified 05/06/23 12:10 of Lip/Tongue/Throat Sulfa (Sulfonamide Allergy Intermediate Rash Verified 05/06/23 12:10 Antibiotics) [SULFA (SULFONAMIDE ANTIBIOTICS)] sulfamethoxazole Allergy Intermediate Rash Verified 05/06/23 12:10 [From Bactrim] trimethoprim [From Bactrim] Allergy Intermediate Rash Verified 05/06/23 12:10 Review of Systems Review of Systems Narrative: Otherwise negative Patient History Medical History Mild cognitive impairment Obesity (BMI 35.0-39.9 without comorbidity) Venous (peripheral) insufficiency GERD without esophagitis Hx of avascular necrosis of capital femoral epiphysis Hx of papillary thyroid carcinoma History of seizure due to alcohol withdrawal History of esophageal varices Alcohol use disorder Mixed hyperlipidemia Essential hypertension DM type 2 with diabetic dyslipidemia Endometrial thickening on ultrasound Esophageal stricture Colon polyp Chlamydia (~1988) Hypothyroidism (1997) Hemorrhoids Irregular periods/menstrual cycles Chicken pox MRSA infection Shoulder pain Depression Hayfever Surgical History Hx laparoscopic cholecystectomy History of ear surgery History of dilation and curettage Anesthesia complication History of placement of ear tubes History of adenoidectomy History of tonsillectomy History of bunionectomy History of esophageal surgery (2016) History of right hip replacement (11/2017) History of left hip replacement (08/2017) History of total thyroidectomy (1997) Family History Father No problems noted. Mother Depression Hyperlipidemia Thyroid disorder Mental health problem Brother No problems noted. Grandfather Lung cancer Cancer Grandmother Thyroid disorder Potassium disorder Hyperlipidemia Hypertension Grandfather No problems noted. Grandmother No problems noted. Family/Other No problems noted. Social History details: 2010, lives with boyfriend, one daughter, disabled household members: significant other Smoking Status: Former smoker alcohol intake: former substance use type: does not use eating out: rarely or never Type(s) of exercise: none Smoking Status: Former smoker tobacco type: vaping alcohol intake frequency: 3 or more drinks per day Alcohol type: hard liquor Substance Use Type: marijuana Exam Initial Vital Signs Initial Vital Signs: Vital Signs Temperature 97.8 F 06/04/23 17:11 Pulse Rate 69 06/04/23 17:11 Respiratory Rate 18 06/04/23 17:11 Blood Pressure 135/79 06/04/23 17:11 Pulse Oximetry 95 06/04/23 17:11 Oxygen Delivery Method Room Air 06/04/23 17:11 Const: Awake, alert, no acute distress, appears chronically unwell, older than stated age Eyes: PERRL, EOMI, conjunctiva normal ENT: Edentulous Cardiac: regular rate, regular rhythm RESP: unlabored, clear bilaterally, no wheezing GI: Atraumatic, soft, nontender, nondistended, no rebound, no guarding Skin: Warm, Dry, intact, no rashes Neuro: AO x3, CN II-XII grossly intact, moves all extremities Course Orders Ordered: ED Orders 06/04/23 17:40 Urine Drug Screen, Rapid Stat 06/04/23 17:48 Complete Blood Count AUTO DIFF Stat Comprehensive Metabolic Panel Stat Ethanol (ETOH) Stat 06/04/23 18:28 CT head/brain wo con Stat 06/04/23 21:14 Ethanol (ETOH) Stat Discontinued Medications Chlordiazepoxide HCl (Chlordiazepoxide 25 Mg Capsule) 50 mg PO NOW ONE Stop: 06/04/23 20:21 Last Admin: 06/04/23 20:28 Dose: 50 mg Documented By: TATIANNA Folic Acid (Folic Acid 1 Mg Tablet) 1 mg PO NOW ONE Stop: 06/04/23 18:09 Last Admin: 06/04/23 18:31 Dose: 1 mg Documented By: JACK Thiamine HCl 100 mg/ Sodium (Chloride) 101 mls @ 404 mls/hr IV NOW ONE Stop: 06/04/23 18:09 Last Infusion: 06/04/23 19:16 Dose: Infused Documented By: Admin: 06/04/23 18:31 Dose: 404 mls/hr Documented By: JACK Sodium Chloride (Normal Saline 0.9%) 1,000 mls @ 1,000 mls/hr IV BOLUS ONE Stop: 06/04/23 19:07 Last Infusion: 06/04/23 19:57 Dose: Infused Documented By: Admin: 06/04/23 18:33 Dose: 1,000 mls/hr Documented By: JACK Vital Signs Vital signs: Vital Signs - 8 hr 06/04/23 22:38 06/05/23 00:36 Pulse Rate 68 75 Respiratory Rate 18 18 Blood Pressure 128/59 L 143/88 H Pulse Oximetry 98 95 Oxygen Delivery Method Room Air Room Air MDM - Alcohol Differential Diagnosis Differential diagnosis: Likely alcohol withdrawal delirium, alcohol intoxication and alcohol ketoacidosis Lab Data 06/04/23 17:48 06/04/23 17:48 Labs: Lab Results 06/04/23 06/04/23 06/04/23 Range/Units 17:35 17:40 17:48 WBC 7.6 (4.5-11.0) X10^3/uL RBC 4.64 (4.0-5.2) X10^6/uL Hgb 13.9 (12.0-16.0) g/dL Hct 40.9 (36-46) % MCV 88.1 (80-100) fL MCH 30.0 (26-34) PG MCHC 34.0 (30-36) % RDW 13.2 (11.6-14.8) % Plt Count 265 (150-400) X10^3/uL Neut % (Auto) 46.8 L (50-75) % Lymph % (Auto) 44.2 H (25-40) % [place] % (Auto) 5.4 (3-14) % Eos % (Auto) 2.5 (2-4) % Baso % (Auto) 1.1 (0-2) % Neut # (Auto) 3500 (5073-8575) /uL Lymph # (Auto) 3300 (9480-1357) /uL [place] # (Auto) 400 (0-900) /uL Eos # (Auto) 200 (0-450) /uL Baso # (Auto) 100 (0-100) /uL Sodium 125 L (137-145) mmol/L Potassium 4.4 (3.4-5.1) mmol/L Chloride 90 L (98-107) mmol/L Carbon Dioxide 20 L (22-32) mmol/L BUN < 2 L (7-17) mg/dL Creatinine 0.40 L (0.52-1.04) mg/dL Estimated GFR > 60 (>60) mL/min BUN/Creatinine Ratio 5.0 L (6-22) Glucose 182 H (70-100) mg/dL Calcium 9.2 (8.4-10.2) mg/dL Total Bilirubin 0.7 (0.2-1.3) mg/dL AST 118 H (14-36) IU/L ALT 95 H (<35) IU/L Alkaline Phosphatase 118 (38-126) U/L Total Protein 8.4 H (6.3-8.2) g/dL Albumin 4.6 (3.5-5.0) g/dL Globulin 3.8 (1.7-4.1) g/dL Albumin/Globulin Ratio 1.2 (1.0-2.8) U Opiates 300ng/mL cut Negative (Negative) Ur Oxycodone Screen Negative (Negative) Urine Methadone Screen Negative (Negative) Ur Barbiturates Screen Negative (Negative) U Tricyclic Antidepress Negative (Negative) Ur Phencyclidine Scrn Negative (Negative) Ur Amphetamines Screen Negative (Negative) U Methamphetamines Scrn Negative (Negative) Ur MDMA Scrn (Ecstasy) Negative (Negative) U Benzodiazepines Scrn Negative (Negative) Urine Cocaine Screen Negative (Negative) U Marijuana (THC) Screen Positive H (Negative) Urine pH Normal (Normal) Urine Specific Millen Normal (Normal) Ethyl Alcohol 278 H ( - 10) mg/dL Ur Creatinine Normal (Normal) SARS-CoV-2 (PCR) Negative (Negative) 06/04/23 Range/Units 21:14 WBC (4.5-11.0) X10^3/uL RBC (4.0-5.2) X10^6/uL Hgb (12.0-16.0) g/dL Hct (36-46) % MCV (80-100) fL MCH (26-34) PG MCHC (30-36) % RDW (11.6-14.8) % Plt Count (150-400) X10^3/uL Neut % (Auto) (50-75) % Lymph % (Auto) (25-40) % [place] % (Auto) (3-14) % Eos % (Auto) (2-4) % Baso % (Auto) (0-2) % Neut # (Auto) (8584-7087) /uL Lymph # (Auto) (9959-7340) /uL [place] # (Auto) (0-900) /uL Eos # (Auto) (0-450) /uL Baso # (Auto) (0-100) /uL Sodium (137-145) mmol/L Potassium (3.4-5.1) mmol/L Chloride (98-107) mmol/L Carbon Dioxide (22-32) mmol/L BUN (7-17) mg/dL Creatinine (0.52-1.04) mg/dL Estimated GFR (>60) mL/min BUN/Creatinine Ratio (6-22) Glucose (70-100) mg/dL Calcium (8.4-10.2) mg/dL Total Bilirubin (0.2-1.3) mg/dL AST (14-36) IU/L ALT (<35) IU/L Alkaline Phosphatase (38-126) U/L Total Protein (6.3-8.2) g/dL Albumin (3.5-5.0) g/dL Globulin (1.7-4.1) g/dL Albumin/Globulin Ratio (1.0-2.8) U Opiates 300ng/mL cut (Negative) Ur Oxycodone Screen (Negative) Urine Methadone Screen (Negative) Ur Barbiturates Screen (Negative) U Tricyclic Antidepress (Negative) Ur Phencyclidine Scrn (Negative) Ur Amphetamines Screen (Negative) U Methamphetamines Scrn (Negative) Ur MDMA Scrn (Ecstasy) (Negative) U Benzodiazepines Scrn (Negative) Urine Cocaine Screen (Negative) U Marijuana (THC) Screen (Negative) Urine pH (Normal) Urine Specific Millen (Normal) Ethyl Alcohol 188 H ( - 10) mg/dL Ur Creatinine (Normal) SARS-CoV-2 (PCR) (Negative) Urine Dip Bedside Urine Glucose Negative Bedside Urine Bilirubin - Negative Bedside Urine Ketone - Negative Urine Specific Millen 1.010 Bedside Urine Occult Blood - Negative Bedside Urine pH 6.0 Bedside Urine Protein - Negative Bedside Urine Urobilinogen - Negative Bedside Urine Nitrite - Negative Bedside Urine Leukocytes - Negative Esterase MDM Narrative Medical decision making narrative: Laboratory work is significant for hyponatremia, 125 today, 127 in April, likely chronic due to alcohol use. Liver enzymes mildly elevated, similar to previous values. Alcohol 278, urine drug screen positive for marijuana. CT of the brain negative for acute findings. Patient received thiamine and folic acid as well as 1 L of normal saline. While in the emergency department the patient showed no clinical signs of alcohol withdrawal, she is resting comfortably in the recliner, she has not diaphoretic, tachycardic, or tremulous. Medically cleared for detox. Spoke with [facility], who states that they may have an alcohol detox be currently and patient completing phone screen. Unfortunately no detox beds available at this time. Patient given po librium and DC with librium taper. At time of discharge patient alert, ambulatory without assistance, no acute distress. Will call cab to take her home. Discharge Plan Departure Patient Disposition: Home Clinical Impression: Alcohol intoxication Prescriptions: New chlordiazepoxide HCl 25 mg capsule 25 mg PO .asdir Qty: 15 0RF Rx Instructions: Day 1: 50mg po q6h Day 2: 25mg po q6h Day 3: 25mg po q12h Day 4: 25mg at night No Action aspirin [Adult Low Dose Aspirin] 81 mg tablet,delayed release (DR/EC) 81 mg PO DAILY (DME) blood-glucose meter [True Metrix Glucose Meter] Mis See Rx Instructions .ROUTE .MEDSUPPLY Qty: 0 0RF Rx Instructions: use to chekc blood sugar 4 times a day nadolol 40 mg tablet 40 mg PO DAILY Qty: 90 1RF (DME) True Metrix Glucose Test Strip Strip See Rx Instructions .Route Qty: 400 3RF Rx Instructions: As directed to check blood glucose 4 times daily liothyronine 5 mcg tablet 5 mcg PO BID Qty: 180 1RF metformin 1,000 mg tablet See Rx Instructions .ROUTE .COMPLEX Qty: 180 1RF Dose Instruction: TAKE ONE TABLET BY MOUTH TWICE DAILY WITH FOOD. (take at 1000 and 1900) Rx Instructions: TAKE ONE TABLET BY MOUTH TWICE DAILY WITH FOOD. (take at 1000 and 1900) levothyroxine 175 mcg tablet 175 mcg PO DAILY Qty: 90 0RF pravastatin 20 mg tablet 20 mg PO BEDTIME Qty: 90 3RF hydroxyzine HCl 50 mg tablet 50 mg PO TID PRN (Reason: anxiety) Qty: 90 11RF sertraline 100 mg tablet 200 mg PO QAM asenapine maleate 2.5 mg tablet, sublingual 2.5 mg sublingual DAILY escitalopram oxalate 10 mg tablet 10 mg PO DAILY acamprosate 333 mg tablet,delayed release (DR/EC) 333 mg PO DAILY omeprazole 20 mg capsule,delayed release(DR/EC) 20 mg PO DAILY Qty: 90 3RF Mirena 21 mcg/24 hours (8 yrs) 52 mg intrauterine device intrauterine Patient Comments: 06/10/22 inserted spironolactone 50 mg tablet 50 mg PO DAILY Qty: 90 3RF mecobalamin (vitamin B12) 1,000 mcg tablet,chewable 1,000 mcg PO DAILY multivitamin with folic acid [Tab-A-Feroz] 400 mcg Tablet 1 tab PO DAILY Qty: 30 0RF milk thistle 150 mg Capsule 300 mg PO DAILY Rx Instructions: give with meal/snack Fiber (psyllium husk-sugar) 3.4 gram/7 gram powder 1 tbsp PO BID Qty: 822 0RF lidocaine 5 % adhesive patch,medicated 1 patch topical DAILY Qty: 1 0RF Rx Instructions: leave on most painful area for up to 12 hrs docusate sodium [Colace] 100 mg capsule 100 mg PO BID Qty: 20 0RF Rx Instructions: Take while taking Vicodin for pain to prevent constipation. If you do develop constipation you may take anything [id number] or that you know has worked for you in the past. If you would like some guidance because you feel constipated and uncomfortable please do not hesitate to call the office for advice. Referrals: Jimmie Shaw MD [Primary Care Provider] - Stand Alone Forms: Patient Portal/API
[2023-06-04] MEDS: FOLIC ACID 1 MG TABLET PO (18:31)
[2023-06-04] MEDS: THIAMINE 100 MG in SODIUM CHLORIDE 0.9% 100 ML 404 MG IV (18:31)
[2023-06-04] MEDS: SODIUM CHLORIDE 0.9% 1,000 ML 1000 ML IV (18:33)
--- NOTE | 2023-06-04 20:20 | PC.NURSE ---
Called [facility] to see if they had beds available. States they did. Pt doing phone screen at this time. Paperwork faxed over to [facility] for review
[2023-06-04] MEDS: chlordiazePOXIDE 25 MG CAPSULE 50 MG PO (20:28)
[2023-06-04 21:32] LABS: Ethanol (ETOH) 188 mg/dL
[2023-06-04 22:38] VITALS: BP 128/59; PULSE 68; RESP 18; O2SAT 98
[2023-06-05 00:36] VITALS: BP 143/88; PULSE 75; RESP 18; O2SAT 95
== END 2023-06-05 00:38 | disposition home or self-care (01) ==
PROVIDERS: Emergency Medicine; Emergency Provider Emergency Medicine; PCP Internal Medicine
DX: F10.129 Alcohol abuse with intoxication, unspecified (principal); Y90.6 Blood alcohol level of 120-199 mg/100 ml; F12.90 Cannabis use, unspecified, uncomplicated; E87.1 Hypo-osmolality and hyponatremia; S00.03XA Contusion of scalp, initial encounter; W18.30XA Fall on same level, unspecified, initial encounter; Z20.822 Contact with and (suspected) exposure to COVID-19
CPT/HCPCS: 36415; 70450; 80053; 80305; 80320; 81003; 85025; 87635; 96360; 99284

== ENCOUNTER → 2023-09-28 12:29 | Outpatient (CLI) | payer OTHER, MEDICAID, SELFPAY ==
[2021-08-18 11:59] VITALS: BMI 34.7
[2023-09-28 13:51] LABS: Alanine Aminotransferase 53 IU/L (<35); Albumin 4.2 g/dL (3.5-5.0); Albumin Globulin Ratio 1.4 (1.0-2.8); Alkaline Phosphatase 162 U/L (38-126); Aspartate Aminotransferase 97 IU/L (14-36); BUN Creatinine Ratio 6.7 (6-22); Bilirubin Total 0.7 mg/dL (0.2-1.3); Blood Urea Nitrogen 3 mg/dL (7-17); Calcium 8.5 mg/dL (8.4-10.2); Carbon Dioxide 17 mmol/L (22-32); Chloride 98 mmol/L (98-107); Estimated Glomerular Filt Rate > 60 mL/min (>60); Glucose 374 mg/dL (70-100); HEMOLYSIS < 15 (0-50); Potassium 4.3 mmol/L (3.4-5.1); Sodium 131 mmol/L (137-145); Total Protein 7.2 g/dL (6.3-8.2)
[2023-09-28 15:23] LABS: Free T4, Direct Thyroxine 1.16 ng/dL (0.78-2.19)
[2023-09-28 15:27] LABS: Creatinine Urine Random 4.99 mg/dL
[2023-09-28 15:37] LABS: Microalbumin Urine Random < 0.6 mg/dL (0-1.6)
== END ==
LOC: LAB 12:29
PROVIDERS: PCP Internal Medicine; Referring Provider Internal Medicine; Visit Provider Internal Medicine
DX: E89.0 Postprocedural hypothyroidism (principal); E11.69 Type 2 diabetes mellitus with other specified complication; E78.5 Hyperlipidemia, unspecified; E78.2 Mixed hyperlipidemia
CPT/HCPCS: 36415; 80053; 82043; 82570; 83036; 84439; 84443

== ENCOUNTER → 2024-01-04 11:48 | Outpatient (CLI) | payer OTHER, MEDICAID, SELFPAY ==
[2021-08-18 11:59] VITALS: BMI 34.7
[2024-01-04 12:57] LABS: Hematocrit 39.6 % (36-46); Hemoglobin 13.3 g/dL (12.0-16.0); Mean Corpuscular HGB Conc 33.6 % (30-36); Mean Corpuscular Volume 92.1 fL (80-100); Platelet Count 192 X10^3/uL (150-400); Red Cell Distribution Width 13.6 % (11.6-14.8); White Blood Cell Count 8.5 X10^3/uL (4.5-11.0)
[2024-01-04 13:13] LABS: Hemoglobin A1C% w Est Avg Glu 7.1 % (4.0-6.0)
[2024-01-04 13:29] LABS: Alanine Aminotransferase 27 IU/L (<35); Albumin 4.2 g/dL (3.5-5.0); Albumin Globulin Ratio 1.6 (1.0-2.8); Alkaline Phosphatase 97 U/L (38-126); Aspartate Aminotransferase 49 IU/L (14-36); BUN Creatinine Ratio 10.2 (6-22); Bilirubin Total 0.6 mg/dL (0.2-1.3); Blood Urea Nitrogen 5 mg/dL (7-17); Calcium 9.5 mg/dL (8.4-10.2); Carbon Dioxide 24 mmol/L (22-32); Chloride 100 mmol/L (98-107); Estimated Glomerular Filt Rate > 60 mL/min (>60); Globulin 2.7 g/dL (1.7-4.1); Glucose 249 mg/dL (70-100); HEMOLYSIS < 15 (0-50); Potassium 4.6 mmol/L (3.4-5.1); Sodium 135 mmol/L (137-145); Total Protein 6.9 g/dL (6.3-8.2)
[2024-01-04 14:48] LABS: Free T4, Direct Thyroxine 1.39 ng/dL (0.78-2.19)
== END ==
PROVIDERS: PCP Internal Medicine; Referring Provider Internal Medicine; Visit Provider Internal Medicine
DX: E11.69 Type 2 diabetes mellitus with other specified complication (principal); E78.5 Hyperlipidemia, unspecified; E89.0 Postprocedural hypothyroidism; K70.30 Alcoholic cirrhosis of liver without ascites
CPT/HCPCS: 36415; 80053; 83036; 84439; 84443; 85027

== ENCOUNTER → 2024-01-28 13:01 | Outpatient (CLI) | payer OTHER, MEDICAID, SELFPAY ==
[2021-08-18 11:59] VITALS: BMI 34.7
--- NOTE | 2024-01-28 13:02 | DI.MG.S_ITS ---
BILATERAL DIGITAL SCREENING MAMMOGRAM 3D/2D WITH CAD: 01/28/2024 CLINICAL: Routine screening. Comparison is made to exams dated: 11/04/2022 mammogram, 10/28/2021 mammogram, and 06/22/2020 mammogram - [facility]. The breasts are heterogeneously dense, which may obscure small masses (category c / 51-75% glandular tissue). Current study was also evaluated with a Computer Aided Detection (CAD) system. There are benign calcifications in both breasts. There also are benign vascular calcifications in both breasts. No significant masses, calcifications, or other findings are seen in either breast. There has been no significant interval change. IMPRESSION: BENIGN There is no mammographic evidence of malignancy. A 1 year screening mammogram is recommended. Based on the Tyrer Cuzick model (a risk assessment model) the patient's lifetime risk is 13.4% and her 10 year risk is 3.3%. According to the ACR, ACS, and NCCN guidelines, an annual breast MRI exam along with mammogram is recommended if the patient's lifetime risk is 20% or greater. This exam was interpreted at Station ID: [id number]. NOTE: For mammograms, a report in lay terms will be sent to the patient. Approximately 15% of breast malignancies will not be visualized mammographically. In the management of a palpable breast mass, a negative mammogram must not discourage biopsy of a clinically suspicious lesion. Electronically Signed By: Maida perez/osmani:01/28/2024 17:43:54 letter sent: Normal Exam ACR BI-RADS Category 2: Benign
== END ==
LOC: MAMMO 13:02
PROVIDERS: PCP Internal Medicine; Referring Provider Internal Medicine; Visit Provider Internal Medicine
DX: Z12.31 Encounter for screening mammogram for malignant neoplasm of breast (principal); R92.333 Mammographic heterogeneous density, bilateral breasts
CPT/HCPCS: 77063; 77067

== ENCOUNTER 2024-04-11 09:36 | Day surgery (SDC) | payer OTHER, MEDICAID, SELFPAY ==
[2021-08-18 11:59] VITALS: BMI 34.7
[2024-04-11 10:07] VITALS: BP 136/77; PULSE 69; RESP 16; TEMP 36.6; O2SAT 97
--- NOTE | 2024-04-11 10:34 | PM.HP.1 ---
History of Present Illness History of Present Illness Chief complaint: [facility] [place]: History of known cirrhosis though doing very well recently. Has had variceal banding in the past for bleeding. Has not had surveillance endoscopy in years. [facility] Medical History Mild cognitive impairment Obesity (BMI 35.0-39.9 without comorbidity) Venous (peripheral) insufficiency GERD without esophagitis Hx of avascular necrosis of capital femoral epiphysis Hx of papillary thyroid carcinoma History of seizure due to alcohol withdrawal History of esophageal varices Alcohol use disorder Mixed hyperlipidemia Essential hypertension DM type 2 with diabetic dyslipidemia Endometrial thickening on ultrasound Esophageal stricture Colon polyp Chlamydia (~1988) Hypothyroidism (1997) Hemorrhoids Irregular periods/menstrual cycles Chicken pox MRSA infection Shoulder pain Depression Hayfever Surgical History Hx laparoscopic cholecystectomy History of ear surgery History of dilation and curettage Anesthesia complication History of placement of ear tubes History of adenoidectomy History of tonsillectomy History of bunionectomy History of esophageal surgery (2016) History of right hip replacement (11/2017) History of left hip replacement (08/2017) History of total thyroidectomy (1997) Family History Father No problems noted. Mother Depression Hyperlipidemia Thyroid disorder Mental health problem Brother No problems noted. Grandfather Lung cancer Cancer Grandmother Thyroid disorder Potassium disorder Hyperlipidemia Hypertension Grandfather No problems noted. Grandmother No problems noted. Family/Other No problems noted. Social History details: 2010, lives with boyfriend (Vitor), one daughter, disabled household members: significant other Smoking Status: Former smoker alcohol intake: current substance use type: does not use eating out: rarely or never Type(s) of exercise: none Meds Home Medications and Allergies Home Medications Medication Instructions Recorded Confirmed Type aspirin 81 mg tablet,delayed 81 mg PO DAILY 12/17/19 03/29/24 History release (Adult Low Dose Aspirin) multivitamin with folic acid 400 1 tab PO DAILY #30 tabs 06/05/21 03/29/24 Rx mcg tablet (Tab-A-Feroz) hydroxyzine HCl 50 mg tablet 50 mg PO TID PRN anxiety #90 tabs 06/18/21 03/29/24 Rx milk thistle 150 mg capsule 300 mg PO DAILY 08/17/21 03/29/24 History lidocaine 5 % topical patch 1 patch topical DAILY #1 ea 08/29/21 03/29/24 Rx docusate sodium 100 mg capsule 100 mg PO BID #20 caps 09/02/22 03/29/24 Rx (Colace) mecobalamin (vitamin B12) 1,000 1,000 mcg PO DAILY 09/16/22 03/29/24 History mcg chewable tablet levonorgestrel 21 mcg/24 hr (up to intrauterine 09/24/22 03/29/24 History 8 years) 52 mg intrauterine device (Mirena) blood-glucose meter (True Metrix #0 ea 12/24/22 03/29/24 Rx Glucose Meter) blood sugar diagnostic (True #400 ea 12/30/22 03/29/24 Rx Metrix Glucose Test Strip) escitalopram oxalate 10 mg tablet 10 mg PO DAILY 05/06/23 03/29/24 History pravastatin 20 mg tablet 20 mg PO BEDTIME #90 tabs 05/18/23 03/29/24 Rx chlordiazepoxide HCl 25 mg capsule 25 mg PO .asdir #15 caps 06/05/23 03/29/24 Rx Disabled Parking Permit 1 ea Not Applicable DAILY #1 ea 06/08/23 03/29/24 Rx spironolactone 50 mg tablet 50 mg PO DAILY #90 tabs 07/20/23 03/29/24 Rx escitalopram oxalate 5 mg tablet 5 mg PO DAILY 08/06/23 03/29/24 History asenapine maleate 2.5 mg mg sublingual 10/13/23 03/29/24 History sublingual tablet omeprazole 20 mg capsule,delayed 20 mg PO DAILY #90 caps 10/13/23 03/29/24 Rx release metformin 1,000 mg tablet See Rx Instructions .Route 11/09/23 04/11/24 Rx .COMPLEX #180 tabs nadolol 40 mg tablet 40 mg PO DAILY #90 tabs 01/07/24 04/11/24 Rx levothyroxine 200 mcg capsule 200 mcg PO DAILY #90 caps 01/14/24 04/11/24 Rx liothyronine 5 mcg tablet 5 mcg PO BID #180 tabs 03/15/24 03/29/24 Rx Allergies Allergy/AdvReac Type Severity Reaction Status Date / Time Penicillins [PENICILLINS] Allergy Severe Swelling Verified 04/11/24 09:58 of Lip/Tongue/Throat Sulfa (Sulfonamide Allergy Intermediate Rash Verified 04/11/24 09:58 Antibiotics) [SULFA (SULFONAMIDE ANTIBIOTICS)] sulfamethoxazole Allergy Intermediate Rash Verified 04/11/24 09:58 [From Bactrim] trimethoprim [From Bactrim] Allergy Intermediate Rash Verified 04/11/24 09:58 Exam Vital Signs (past 8 hours): - 04/11/24 10:07 Temperature 98 F Pulse Rate 69 Respiratory Rate 16 Blood Pressure 136/77 Pulse Oximetry 97 Oxygen Delivery Method Room Air Oxygen Delivery Method Room Air Narrative Exam Narrative: Oropharynx free of lesion/edentulous Assessment & Plan Assessment & Plan narrative: History of cirrhosis and variceal bleeding in the past no EGD in years. Need for follow-up EGD to rule out moderate to large varices which need to be prophylactically treated. Risks, benefits, alternatives have been explained. Time-Based Coding :: [TOTAL MINUTES] spent with patient and on the chart (including review of chart, obtaining history, exam, reviewing outside data, placing orders, documenting exam and treatment plan, and counseling patient) on [DATE].
--- NOTE | 2024-04-11 10:36 | PM.OP.EGD ---
Operative Date/Time/Diagnoses Date of procedure: 04/11/24 Pre-op diagnosis: See indication and findings Procedure & Clinicians Study performed: EGD with possible banding Indications: Known cirrhosis with history of variceal bleeding though none in years. Need for follow-up EGD to rule out bandible varices Surgeon: Juan Shaffer Procedure Notes Procedure in detail: After informed consent was obtained the patient was placed in left lateral decubitus position. Video upper scope was placed into the oropharynx and with the patient's help swallowed into the esophagus. The esophagus stomach and duodenal were carefully examined. On withdrawal, retroflexed view the GE junction was performed. The scope was removed. The patient tolerated procedure well. Blood loss none Complications none Sedation mac Findings 1. Normal esophagus with no esophageal varices seen. 2. Retroflexed view shows no gastric varices 3. A striped gastric erythema in the stomach with background mucosal changes consistent with gastropathy portal hypertension 4. Normal duodenal bulb and sweep Patient should have follow-up EGD in 1 year.
[2024-04-11 10:55] VITALS: BP 103/66; PULSE 67; RESP 16; TEMP 36.2; O2SAT 94
[2024-04-11 11:00] VITALS: BP 110/60; PULSE 64; RESP 16; O2SAT 98
[2024-04-11 11:05] VITALS: BP 103/66; PULSE 84; RESP 16; TEMP 36.2; O2SAT 16
== END 2024-04-11 11:25 | disposition home or self-care (01) ==
PROVIDERS: PCP Internal Medicine; Referring Provider Internal Medicine Gastroenterology; Visit Provider Internal Medicine Gastroenterology
PROC: 0DJ08ZZ Inspection of Upper Intestinal Tract, Via Natural or Artificial Opening Endoscopic (ICD-10-PCS; CPT 43235; principal; 2024-04-11 11:00)
DX: Z09 Encounter for follow-up examination after completed treatment for conditions other than malignant neoplasm (principal); K70.30 Alcoholic cirrhosis of liver without ascites; Z87.19 Personal history of other diseases of the digestive system
CPT/HCPCS: 43235; J2704

== ENCOUNTER → 2024-04-21 11:37 | Outpatient (CLI) | payer OTHER, MEDICAID, SELFPAY ==
[2021-08-18 11:59] VITALS: BMI 34.7
[2024-04-21 13:01] LABS: Blood Urea Nitrogen 3 mg/dL (7-17); Calcium 9.7 mg/dL (8.4-10.2); Carbon Dioxide 20 mmol/L (22-32); Chloride 98 mmol/L (98-107); Estimated Glomerular Filt Rate > 60 mL/min (>60); Glucose 197 mg/dL (70-100); HEMOLYSIS < 15 (0-50); Potassium 4.8 mmol/L (3.4-5.1); Sodium 132 mmol/L (137-145)
[2024-04-21 13:21] LABS: Hemoglobin A1C% w Est Avg Glu 6.7 % (4.0-6.0)
[2024-04-21 13:28] LABS: TSH w/ Reflex to FT4 5.06 uIU/mL (0.47-4.68)
[2024-04-21 13:55] LABS: Free T4, Direct Thyroxine 1.58 ng/dL (0.78-2.19)
== END ==
PROVIDERS: PCP Internal Medicine; Referring Provider Internal Medicine; Visit Provider Internal Medicine
DX: E11.69 Type 2 diabetes mellitus with other specified complication (principal); E78.5 Hyperlipidemia, unspecified; E89.0 Postprocedural hypothyroidism
CPT/HCPCS: 36415; 80048; 83036; 84439; 84443

== ENCOUNTER → 2024-11-09 13:20 | Outpatient (CLI) | payer OTHER, MEDICAID, SELFPAY ==
[2021-08-18 11:59] VITALS: BMI 34.7
[2024-11-09 14:52] LABS: Hematocrit 27.7 % (36-46); Hemoglobin 8.5 g/dL (12.0-16.0); Mean Corpuscular HGB Conc 30.7 % (30-36); Mean Corpuscular Hemoglobin 20.0 PG (26-34); Mean Corpuscular Volume 65.2 fL (80-100); Platelet Count 232 X10^3/uL (150-400)
[2024-11-09 14:57] LABS: Hemoglobin A1C% w Est Avg Glu 7.1 % (4.0-6.0)
[2024-11-09 15:27] LABS: Alanine Aminotransferase 32 IU/L (<35); Albumin 4.0 g/dL (3.5-5.0); Albumin Globulin Ratio 1.3 (1.0-2.8); Alkaline Phosphatase 155 U/L (38-126); Blood Urea Nitrogen 2 mg/dL (7-17); Calcium 8.9 mg/dL (8.4-10.2); Carbon Dioxide 19 mmol/L (22-32); Chloride 93 mmol/L (98-107); Cholesterol 179 mg/dL (140-199); Estimated Glomerular Filt Rate > 60 mL/min (>60); Globulin 3.1 g/dL (1.7-4.1); Glucose 275 mg/dL (70-99); HDL Cholesterol 65 mg/dL (40-60); HEMOLYSIS < 15 (0-50); Potassium 4.9 mmol/L (3.4-5.1); Sodium 124 mmol/L (137-145); Total Protein 7.1 g/dL (6.3-8.2); Triglycerides 126 mg/dL (35-150)
[2024-11-09 15:48] LABS: TSH w/ Reflex to FT4 1.22 uIU/mL (0.47-4.68)
--- NOTE | 2024-11-09 16:17 | DI.RAD.S_ITS ---
PROCEDURE: XR FOOT LT MIN 3V INDICATIONS: followup TECHNIQUE: 3 views of the foot were acquired. COMPARISON: Merged With [facility], CR, XR FOOT RT MIN 3V, 05/31/2021, 14:09. FINDINGS: Bones: Questionable fracture at the base of the 2nd metatarsal Soft tissues: No tibiotalar joint effusion. Achilles tendon appears normal. IMPRESSION: Questionable fracture of the base of the 2nd metatarsal, recommend correlation with point tenderness. Dictated by: Demetrio Hernández M.D. on 11/10/2024 at 10:49 Approved by: Demetrio Hernández M.D. on 11/10/2024 at 10:51
--- NOTE | 2024-11-09 16:17 | DI.RAD.S_ITS ---
PROCEDURE: XR ANKLE LT MIN 3V INDICATIONS: followup TECHNIQUE: 3 views of the ankle were acquired. COMPARISON: [facility], CR, XR ANKLE RT MIN 3V, 05/31/2021, 14:17. [facility], CR, XR ANKLE RT MIN 3V, 09/30/2018, 20:45. FINDINGS: Bones: Mildly displaced distal fibular fracture. There also appears to be a chronic fracture deformity of the distal fibular shaft just superior to the syndesmosis. Ankle mortise is normally aligned. No suspicious bony lesions. Soft tissues: No tibiotalar joint effusion. Achilles tendon appears normal. Soft tissue swelling over the lateral malleolus. IMPRESSION: Mildly displaced fracture of the distal fibula. Dictated by: Demetrio Hernández M.D. on 11/10/2024 at 10:43 Approved by: Demetrio Hernández M.D. on 11/10/2024 at 10:45
== END ==
PROVIDERS: PCP Internal Medicine; Referring Provider Internal Medicine; Visit Provider Internal Medicine
DX: E11.69 Type 2 diabetes mellitus with other specified complication (principal); E78.5 Hyperlipidemia, unspecified; K70.30 Alcoholic cirrhosis of liver without ascites; E89.0 Postprocedural hypothyroidism; S82.65XD Nondisplaced fracture of lateral malleolus of left fibula, subsequent encounter for closed fracture with routine healing; S92.325D Nondisplaced fracture of second metatarsal bone, left foot, subsequent encounter for fracture with routine healing; X58.XXXD Exposure to other specified factors, subsequent encounter
CPT/HCPCS: 36415; 73610; 73630; 80053; 80061; 82043; 82570; 83036; 84443; 85027